=== PATIENT | female | born 1965 | race Caucasian/White ===

== ENCOUNTER → 2020-07-04 10:07 | Outpatient (BNVA) | payer MEDICAID, SELFPAY | PROVIDERS: PCP Student in an Organized Health Care Education/Training Program; Visit Provider Internal Medicine | DX: Z86.711 Personal history of pulmonary embolism (principal); Z51.81 Encounter for therapeutic drug level monitoring; Z79.01 Long term (current) use of anticoagulants | CPT/HCPCS: 85610; 99211 ==

== ENCOUNTER → 2020-07-18 10:07 | Outpatient (BNVA) | payer MEDICAID, SELFPAY | PROVIDERS: PCP Student in an Organized Health Care Education/Training Program; Visit Provider Internal Medicine | DX: Z86.711 Personal history of pulmonary embolism (principal); Z51.81 Encounter for therapeutic drug level monitoring; Z79.01 Long term (current) use of anticoagulants | CPT/HCPCS: 85610; 99211 ==

== ENCOUNTER 2020-07-25 10:09 | Outpatient (REF) | payer MEDICAID, SELFPAY ==
[2020-07-25 13:45] LABS: Alanine Aminotransferase 12 U/L (0-31); Albumin Level 4.2 g/dL (3.5-5.0); Alkaline Phosphatase 88 U/L (39-117); Anion Gap 15 (12-20); Aspartate Amino Transferase 16 U/L (5-31); Bilirubin Direct < 0.2 mg/dL (0.0-0.5); Bilirubin Total < 0.2 mg/dL (0.0-1.0); Blood Urea Nitrogen 19 mg/dL (9-16); Calcium 8.5 mg/dL (8.4-10.2); Carbon Dioxide 24 mmol/L (22-29); Chloride 108 mmol/L (96-108); Cholesterol 174 mg/dL; Estimated Glomerular Filt Rate > 60; Glucose Fasting 71 mg/dL (60-99); HDL Cholesterol 64 mg/dL; LDL Cholesterol Calculated 101 mg/dl; Potassium 4.8 mmol/l (3.3-5.1); Sodium 142 mmol/L (135-145); Total Protein 7.8 g/dL (6.5-8.0); Triglycerides 45 mg/dL
== END 2020-07-25 10:10 | disposition home or self-care (01) ==
LOC: HO.LAB 10:09
PROVIDERS: Visit Provider Student in an Organized Health Care Education/Training Program
DX: E78.5 Hyperlipidemia, unspecified (principal); I10 Essential (primary) hypertension
CPT/HCPCS: 80048; 80061; 80076; 85610

== ENCOUNTER → 2020-08-08 09:50 | Outpatient (BNVA) | payer MEDICAID, SELFPAY | PROVIDERS: PCP Student in an Organized Health Care Education/Training Program; Visit Provider Internal Medicine | DX: Z86.711 Personal history of pulmonary embolism (principal); Z51.81 Encounter for therapeutic drug level monitoring; Z79.01 Long term (current) use of anticoagulants | CPT/HCPCS: 85610; 99211 ==

== ENCOUNTER → 2020-08-12 10:31 | Outpatient (BNVA) | payer MEDICAID, SELFPAY | PROVIDERS: PCP Student in an Organized Health Care Education/Training Program; Visit Provider Internal Medicine | DX: I26.99 Other pulmonary embolism without acute cor pulmonale (principal); Z51.81 Encounter for therapeutic drug level monitoring; Z79.01 Long term (current) use of anticoagulants | CPT/HCPCS: 85610; 99211 ==

== ENCOUNTER → 2020-08-19 10:42 | Outpatient (BNVA) | payer MEDICAID, SELFPAY | PROVIDERS: PCP Student in an Organized Health Care Education/Training Program; Visit Provider Internal Medicine | DX: I26.99 Other pulmonary embolism without acute cor pulmonale (principal); Z51.81 Encounter for therapeutic drug level monitoring; Z79.01 Long term (current) use of anticoagulants | CPT/HCPCS: 85610; 99211 ==

== ENCOUNTER → 2020-08-26 10:12 | Outpatient (BNVA) | payer MEDICAID, SELFPAY | PROVIDERS: PCP Student in an Organized Health Care Education/Training Program; Visit Provider Internal Medicine | DX: I26.99 Other pulmonary embolism without acute cor pulmonale (principal); Z51.81 Encounter for therapeutic drug level monitoring; Z79.01 Long term (current) use of anticoagulants | CPT/HCPCS: 85610; 99211 ==

== ENCOUNTER → 2020-09-10 10:38 | Outpatient (BNVA) | payer MEDICAID, SELFPAY | PROVIDERS: PCP Student in an Organized Health Care Education/Training Program; Visit Provider Internal Medicine | DX: Z86.711 Personal history of pulmonary embolism (principal); Z51.81 Encounter for therapeutic drug level monitoring; Z79.01 Long term (current) use of anticoagulants | CPT/HCPCS: 85610; 99211 ==

== ENCOUNTER → 2020-09-17 11:03 | Outpatient (BNVA) | payer MEDICAID, SELFPAY | PROVIDERS: PCP Student in an Organized Health Care Education/Training Program; Visit Provider Internal Medicine | DX: I26.99 Other pulmonary embolism without acute cor pulmonale (principal); Z51.81 Encounter for therapeutic drug level monitoring; Z79.01 Long term (current) use of anticoagulants | CPT/HCPCS: 85610; 99211 ==

== ENCOUNTER → 2020-09-23 13:18 | Outpatient (BNVA) | payer MEDICAID, SELFPAY | PROVIDERS: PCP Student in an Organized Health Care Education/Training Program; Visit Provider Internal Medicine | DX: Z86.711 Personal history of pulmonary embolism (principal); Z51.81 Encounter for therapeutic drug level monitoring; Z79.01 Long term (current) use of anticoagulants | CPT/HCPCS: 85610; 99211 ==

== ENCOUNTER → 2020-09-27 10:00 | Outpatient (BNVA) | payer MEDICAID, SELFPAY | PROVIDERS: PCP Student in an Organized Health Care Education/Training Program; Visit Provider Internal Medicine | DX: I26.99 Other pulmonary embolism without acute cor pulmonale (principal); Z79.01 Long term (current) use of anticoagulants; Z51.81 Encounter for therapeutic drug level monitoring | CPT/HCPCS: 85610; 99211 ==

== ENCOUNTER → 2020-10-02 10:23 | Outpatient (BNVA) | payer MEDICAID, SELFPAY | PROVIDERS: PCP Student in an Organized Health Care Education/Training Program; Visit Provider Internal Medicine | DX: I26.99 Other pulmonary embolism without acute cor pulmonale (principal); Z79.01 Long term (current) use of anticoagulants; Z51.81 Encounter for therapeutic drug level monitoring | CPT/HCPCS: 85610; 99211 ==

== ENCOUNTER → 2020-10-16 09:49 | Outpatient (BNVA) | payer MEDICAID, SELFPAY | PROVIDERS: PCP Student in an Organized Health Care Education/Training Program; Visit Provider Internal Medicine | DX: I26.99 Other pulmonary embolism without acute cor pulmonale (principal); Z51.81 Encounter for therapeutic drug level monitoring; Z79.01 Long term (current) use of anticoagulants | CPT/HCPCS: 85610; 99211 ==

== ENCOUNTER → 2020-10-25 09:58 | Outpatient (BNVA) | payer MEDICAID, SELFPAY | PROVIDERS: PCP Student in an Organized Health Care Education/Training Program; Visit Provider Internal Medicine | DX: I26.99 Other pulmonary embolism without acute cor pulmonale (principal); Z51.81 Encounter for therapeutic drug level monitoring; Z79.01 Long term (current) use of anticoagulants | CPT/HCPCS: 85610; 99211 ==

== ENCOUNTER → 2020-11-08 09:57 | Outpatient (BNVA) | payer MEDICAID, SELFPAY | PROVIDERS: PCP Student in an Organized Health Care Education/Training Program; Visit Provider Internal Medicine | DX: I26.99 Other pulmonary embolism without acute cor pulmonale (principal); Z51.81 Encounter for therapeutic drug level monitoring; Z79.01 Long term (current) use of anticoagulants | CPT/HCPCS: 85610; 99211 ==

== ENCOUNTER → 2020-11-21 10:11 | Outpatient (BNVA) | payer MEDICAID, SELFPAY | PROVIDERS: PCP Student in an Organized Health Care Education/Training Program; Visit Provider Internal Medicine | DX: I26.99 Other pulmonary embolism without acute cor pulmonale (principal); Z51.81 Encounter for therapeutic drug level monitoring; Z79.01 Long term (current) use of anticoagulants | CPT/HCPCS: 85610; 99211 ==

== ENCOUNTER → 2020-12-06 09:54 | Outpatient (BNVA) | payer MEDICAID, SELFPAY | PROVIDERS: PCP Student in an Organized Health Care Education/Training Program; Visit Provider Internal Medicine | DX: I26.99 Other pulmonary embolism without acute cor pulmonale (principal); Z51.81 Encounter for therapeutic drug level monitoring; Z79.01 Long term (current) use of anticoagulants | CPT/HCPCS: 85610; 99211 ==

== ENCOUNTER → 2020-12-27 10:01 | Outpatient (BNVA) | payer MEDICAID, SELFPAY | PROVIDERS: PCP Student in an Organized Health Care Education/Training Program; Visit Provider Internal Medicine | DX: I26.99 Other pulmonary embolism without acute cor pulmonale (principal); Z51.81 Encounter for therapeutic drug level monitoring; Z79.01 Long term (current) use of anticoagulants | CPT/HCPCS: 85610; 99211 ==

== ENCOUNTER → 2021-01-24 10:11 | Outpatient (BNVA) | payer MEDICAID, SELFPAY | PROVIDERS: PCP Student in an Organized Health Care Education/Training Program; Visit Provider Internal Medicine | DX: I26.99 Other pulmonary embolism without acute cor pulmonale (principal); Z79.01 Long term (current) use of anticoagulants; Z51.81 Encounter for therapeutic drug level monitoring | CPT/HCPCS: 85610; 99211 ==

== ENCOUNTER → 2021-01-30 09:57 | Outpatient (BNVA) | payer MEDICAID, SELFPAY | PROVIDERS: PCP Student in an Organized Health Care Education/Training Program; Visit Provider Internal Medicine | DX: I26.99 Other pulmonary embolism without acute cor pulmonale (principal); Z51.81 Encounter for therapeutic drug level monitoring; Z79.01 Long term (current) use of anticoagulants | CPT/HCPCS: 85610; 99211 ==

== ENCOUNTER 2021-02-03 10:21 | Outpatient (REF) | payer MEDICAID, SELFPAY ==
[2021-02-03 12:34] LABS: Alanine Aminotransferase 13 U/L (0-31); Albumin Level 4.2 g/dL (3.5-5.0); Alkaline Phosphatase 106 U/L (39-117); Anion Gap 13 (12-20); Aspartate Amino Transferase 16 U/L (5-31); Bilirubin Direct < 0.2 mg/dL (0.0-0.5); Bilirubin Total 0.2 mg/dL (0.0-1.0); Blood Urea Nitrogen 17 mg/dL (9-16); Calcium 9.1 mg/dL (8.4-10.2); Carbon Dioxide 26 mmol/L (22-29); Chloride 107 mmol/L (96-108); Cholesterol 162 mg/dL; Estimated Glomerular Filt Rate > 60; Glucose Random 77 mg/dL (60-115); HDL Cholesterol 62 mg/dL; LDL Cholesterol Calculated 89 mg/dl; Potassium 4.7 mmol/L (3.3-5.1); Sodium 141 mmol/L (135-145); Total Protein 7.9 g/dL (6.5-8.0); Triglycerides 57 mg/dL
[2021-02-03 12:58] LABS: Vitamin D 25-OH Total 14.7 ng/mL (>30)
== END 2021-02-03 10:22 | disposition home or self-care (01) ==
LOC: HO.LAB 10:21
PROVIDERS: PCP Student in an Organized Health Care Education/Training Program; Visit Provider Student in an Organized Health Care Education/Training Program
DX: E78.5 Hyperlipidemia, unspecified (principal); I10 Essential (primary) hypertension
CPT/HCPCS: 36415; 80048; 80061; 80076; 82306

== ENCOUNTER → 2021-02-27 09:58 | Outpatient (BNVA) | payer MEDICAID, SELFPAY | PROVIDERS: PCP Student in an Organized Health Care Education/Training Program; Visit Provider Internal Medicine | DX: I26.99 Other pulmonary embolism without acute cor pulmonale (principal); Z51.81 Encounter for therapeutic drug level monitoring; Z79.01 Long term (current) use of anticoagulants | CPT/HCPCS: 85610; 99211 ==

== ENCOUNTER → 2021-03-28 10:28 | Outpatient (BNVA) | payer MEDICAID, SELFPAY | PROVIDERS: PCP Student in an Organized Health Care Education/Training Program; Visit Provider Internal Medicine | DX: I26.99 Other pulmonary embolism without acute cor pulmonale (principal); Z51.81 Encounter for therapeutic drug level monitoring; Z79.01 Long term (current) use of anticoagulants | CPT/HCPCS: 85610; 99211 ==

== ENCOUNTER → 2021-04-04 09:52 | Outpatient (BNVA) | payer MEDICAID, SELFPAY | PROVIDERS: PCP Student in an Organized Health Care Education/Training Program; Visit Provider Internal Medicine | DX: I26.99 Other pulmonary embolism without acute cor pulmonale (principal); Z51.81 Encounter for therapeutic drug level monitoring; Z79.01 Long term (current) use of anticoagulants | CPT/HCPCS: 85610; 99211 ==

== ENCOUNTER → 2021-04-17 10:13 | Outpatient (BNVA) | payer MEDICAID, SELFPAY | PROVIDERS: PCP Student in an Organized Health Care Education/Training Program; Visit Provider Internal Medicine | DX: I26.99 Other pulmonary embolism without acute cor pulmonale (principal); Z51.81 Encounter for therapeutic drug level monitoring; Z79.01 Long term (current) use of anticoagulants | CPT/HCPCS: 85610; 99211 ==

== ENCOUNTER → 2021-05-09 10:02 | Outpatient (BNVA) | payer MEDICAID, SELFPAY | PROVIDERS: PCP Student in an Organized Health Care Education/Training Program; Visit Provider Internal Medicine | DX: I26.99 Other pulmonary embolism without acute cor pulmonale (principal); Z51.81 Encounter for therapeutic drug level monitoring; Z79.01 Long term (current) use of anticoagulants | CPT/HCPCS: 85610; 99211 ==

== ENCOUNTER → 2021-05-30 10:00 | Outpatient (BNVA) | payer MEDICAID, SELFPAY | PROVIDERS: PCP Student in an Organized Health Care Education/Training Program; Visit Provider Internal Medicine | DX: I26.99 Other pulmonary embolism without acute cor pulmonale (principal); Z51.81 Encounter for therapeutic drug level monitoring; Z79.01 Long term (current) use of anticoagulants | CPT/HCPCS: 85610; 99211 ==

== ENCOUNTER → 2021-06-13 10:13 | Outpatient (BNVA) | payer MEDICAID, SELFPAY | PROVIDERS: PCP Student in an Organized Health Care Education/Training Program; Visit Provider Internal Medicine | DX: I26.99 Other pulmonary embolism without acute cor pulmonale (principal); Z51.81 Encounter for therapeutic drug level monitoring; Z79.01 Long term (current) use of anticoagulants | CPT/HCPCS: 85610; 99211 ==

== ENCOUNTER → 2021-07-11 10:23 | Outpatient (BNVA) | payer MEDICAID, SELFPAY | PROVIDERS: PCP Student in an Organized Health Care Education/Training Program; Visit Provider Internal Medicine | DX: I26.99 Other pulmonary embolism without acute cor pulmonale (principal); Z51.81 Encounter for therapeutic drug level monitoring; Z79.01 Long term (current) use of anticoagulants | CPT/HCPCS: 85610; 99211 ==

== ENCOUNTER → 2021-08-08 10:47 | Outpatient (BNVA) | payer MEDICAID, SELFPAY | PROVIDERS: PCP Internal Medicine; Visit Provider Internal Medicine | DX: I26.99 Other pulmonary embolism without acute cor pulmonale (principal); Z51.81 Encounter for therapeutic drug level monitoring; Z79.01 Long term (current) use of anticoagulants | CPT/HCPCS: 85610; 99211 ==

== ENCOUNTER → 2021-09-04 09:55 | Outpatient (BNVA) | payer MEDICAID, SELFPAY | PROVIDERS: PCP Internal Medicine; Visit Provider Internal Medicine | DX: I26.99 Other pulmonary embolism without acute cor pulmonale (principal); Z51.81 Encounter for therapeutic drug level monitoring; Z79.01 Long term (current) use of anticoagulants | CPT/HCPCS: 85610; 99211 ==

== ENCOUNTER → 2021-10-02 09:52 | Outpatient (BNVA) | payer MEDICAID, SELFPAY | PROVIDERS: PCP Internal Medicine; Visit Provider Internal Medicine | DX: I26.99 Other pulmonary embolism without acute cor pulmonale (principal); Z51.81 Encounter for therapeutic drug level monitoring; Z79.01 Long term (current) use of anticoagulants | CPT/HCPCS: 85610; 99211 ==

== ENCOUNTER → 2021-10-30 09:55 | Outpatient (BNVA) | payer MEDICAID, SELFPAY | PROVIDERS: PCP Internal Medicine; Visit Provider Internal Medicine | DX: I26.99 Other pulmonary embolism without acute cor pulmonale (principal); Z51.81 Encounter for therapeutic drug level monitoring; Z79.01 Long term (current) use of anticoagulants | CPT/HCPCS: 85610; 99211 ==

== ENCOUNTER → 2021-11-12 10:29 | Outpatient (BNVA) | payer MEDICAID, SELFPAY | PROVIDERS: PCP Internal Medicine; Visit Provider Internal Medicine | DX: I26.99 Other pulmonary embolism without acute cor pulmonale (principal); Z51.81 Encounter for therapeutic drug level monitoring; Z79.01 Long term (current) use of anticoagulants | CPT/HCPCS: 85610; 99211 ==

== ENCOUNTER → 2021-12-11 10:01 | Outpatient (BNVA) | payer MEDICAID, SELFPAY | PROVIDERS: PCP Internal Medicine; Visit Provider Internal Medicine | DX: I26.99 Other pulmonary embolism without acute cor pulmonale (principal); Z51.81 Encounter for therapeutic drug level monitoring; Z79.01 Long term (current) use of anticoagulants | CPT/HCPCS: 85610; 99211 ==

== ENCOUNTER → 2021-12-25 10:22 | Outpatient (BNVA) | payer MEDICAID, SELFPAY | PROVIDERS: PCP Student in an Organized Health Care Education/Training Program; Visit Provider Internal Medicine | DX: I26.99 Other pulmonary embolism without acute cor pulmonale (principal); Z51.81 Encounter for therapeutic drug level monitoring; Z79.01 Long term (current) use of anticoagulants | CPT/HCPCS: 85610; 99211 ==

== ENCOUNTER → 2022-01-22 10:10 | Outpatient (BNVA) | payer MEDICAID, SELFPAY | PROVIDERS: PCP Student in an Organized Health Care Education/Training Program; Visit Provider Internal Medicine | DX: I26.99 Other pulmonary embolism without acute cor pulmonale (principal); Z79.01 Long term (current) use of anticoagulants; Z51.81 Encounter for therapeutic drug level monitoring | CPT/HCPCS: 85610; 99211 ==

== ENCOUNTER 2022-02-05 10:16 | Outpatient (REF) | payer MEDICAID, SELFPAY ==
[2022-02-05 11:40] LABS: Hematocrit 31.4 % (37.0-47.0); Hemoglobin 9.5 g/dl (12.0-16.0); Mean Corpuscular HGB Conc 30.3 g/dl (31.0-35.0); Mean Corpuscular Hemoglobin 20.4 pg (27.0-33.0); Mean Corpuscular Volume 67.4 fL (80.0-98.0); Mean Platelet Volume 8.8 fL (9.4-12.3); Platelet Count 638 X10*3/uL (160-400); Red Blood Count 4.66 X10*6/uL (4.20-5.50); White Blood Count 12.7 X10*3/uL (4.8-10.8)
[2022-02-05 12:09] LABS: Alanine Aminotransferase 14 U/L (0-31); Alkaline Phosphatase 87 U/L (39-117); Anion Gap 12 (12-20); Aspartate Amino Transferase 16 U/L (5-31); Bilirubin Direct < 0.2 mg/dL (0.0-0.5); Bilirubin Total 0.3 mg/dL (0.0-1.0); Blood Urea Nitrogen 18 mg/dL (9-16); Calcium 9.5 mg/dL (8.4-10.2); Carbon Dioxide 24 mmol/L (22-29); Chloride 109 mmol/L (96-108); Cholesterol 203 mg/dL; Estimated Glomerular Filt Rate > 60; Glucose Random 75 mg/dL (60-115); HDL Cholesterol 62 mg/dL; LDL Cholesterol Calculated 128 mg/dl; Potassium 4.5 mmol/L (3.3-5.1); Sodium 140 mmol/L (135-145); Total Protein 7.9 g/dL (6.5-8.0); Triglycerides 67 mg/dL
[2022-02-05 12:39] LABS: Vitamin D 25-OH Total 24.2 ng/mL (>30)
== END 2022-02-05 10:17 | disposition home or self-care (01) ==
LOC: HO.LAB 10:16
PROVIDERS: Absent Provider Student in an Organized Health Care Education/Training Program; PCP Student in an Organized Health Care Education/Training Program; Visit Provider Internal Medicine
DX: E78.5 Hyperlipidemia, unspecified (principal); I10 Essential (primary) hypertension; R26.9 Unspecified abnormalities of gait and mobility; I26.99 Other pulmonary embolism without acute cor pulmonale; Z51.81 Encounter for therapeutic drug level monitoring; Z79.01 Long term (current) use of anticoagulants
CPT/HCPCS: 36415; 80048; 80061; 80076; 82306; 85027; 85610; 99211

== ENCOUNTER → 2022-02-12 10:29 | Outpatient (BNVA) | payer MEDICAID, SELFPAY | PROVIDERS: PCP Student in an Organized Health Care Education/Training Program; Visit Provider Internal Medicine | DX: I26.99 Other pulmonary embolism without acute cor pulmonale (principal); Z79.01 Long term (current) use of anticoagulants; Z51.81 Encounter for therapeutic drug level monitoring | CPT/HCPCS: 85610; 99211 ==

== ENCOUNTER → 2022-03-05 09:54 | Outpatient (BNVA) | payer MEDICAID, SELFPAY | PROVIDERS: PCP Student in an Organized Health Care Education/Training Program; Visit Provider Internal Medicine | DX: I26.99 Other pulmonary embolism without acute cor pulmonale (principal); Z79.01 Long term (current) use of anticoagulants; Z51.81 Encounter for therapeutic drug level monitoring | CPT/HCPCS: 85610; 99211 ==

== ENCOUNTER 2022-03-06 10:21 | Outpatient (REF) | payer MEDICAID, SELFPAY ==
--- NOTE | ~2022-03-06 | MM_ITS ---
EXAMINATION: MM SCREENING DIGITAL BREAST TOMOSYNTHESIS, BILATERAL CLINICAL INFORMATION: Screening. Asymptomatic. The lifetime risk of breast cancer based on the Tyrer-Cuzick Model is 4%. COMPARISON: Outside mammography 06/07/2013, 02/01/2012, 01/28/2011 ([facility]) TECHNIQUE: Digital breast tomosynthesis is performed in both the craniocaudal and mediolateral oblique views along with computer-aided detection (CAD). Synthesized 2D images are generated from the tomosynthesis. FINDINGS: There are scattered areas of fibroglandular density (ACR BI-RADS breast composition Category b). Parenchymal pattern is similar to prior exams. There is no mass, developing density, or interval architectural abnormality. Again, there are benign tightly grouped dermal calcifications posterior lower right breast and tightly grouped benign calcifications central upper left breast. Calcifications were present in 2012. The axilla and skin contours are unremarkable. MM/MM tomosynthesis screening BI IMPRESSION: No mammographic evidence of malignancy. ASSESSMENT: BI-RADS 2: Benign RECOMMENDATION: Routine annual mammography screening. This patient's information was entered into a reminder system with a target due date for their next mammogram.
== END 2022-03-06 10:22 | disposition home or self-care (01) ==
LOC: HO.MAMMO 10:21
PROVIDERS: PCP Student in an Organized Health Care Education/Training Program; Visit Provider Student in an Organized Health Care Education/Training Program
DX: Z12.31 Encounter for screening mammogram for malignant neoplasm of breast (principal)
CPT/HCPCS: 77063; 77067

== ENCOUNTER → 2022-03-19 10:03 | Outpatient (BNVA) | payer MEDICAID, SELFPAY | PROVIDERS: PCP Student in an Organized Health Care Education/Training Program; Visit Provider Internal Medicine | DX: I26.99 Other pulmonary embolism without acute cor pulmonale (principal); Z51.81 Encounter for therapeutic drug level monitoring; Z79.01 Long term (current) use of anticoagulants | CPT/HCPCS: 85610; 99211 ==

== ENCOUNTER → 2022-04-02 09:57 | Outpatient (BNVA) | payer MEDICAID, SELFPAY | PROVIDERS: PCP Student in an Organized Health Care Education/Training Program; Visit Provider Internal Medicine | DX: I26.99 Other pulmonary embolism without acute cor pulmonale (principal); Z79.01 Long term (current) use of anticoagulants; Z51.81 Encounter for therapeutic drug level monitoring | CPT/HCPCS: 85610; 99211 ==

== ENCOUNTER → 2022-04-09 10:27 | Outpatient (BNVA) | payer MEDICAID, SELFPAY | PROVIDERS: PCP Student in an Organized Health Care Education/Training Program; Visit Provider Internal Medicine | DX: I26.99 Other pulmonary embolism without acute cor pulmonale (principal); Z79.01 Long term (current) use of anticoagulants; Z51.81 Encounter for therapeutic drug level monitoring | CPT/HCPCS: 85610; 99211 ==

== ENCOUNTER → 2022-04-23 09:54 | Outpatient (BNVA) | payer MEDICAID, SELFPAY | PROVIDERS: PCP Student in an Organized Health Care Education/Training Program; Visit Provider Internal Medicine | DX: I26.99 Other pulmonary embolism without acute cor pulmonale (principal); Z79.01 Long term (current) use of anticoagulants; Z51.81 Encounter for therapeutic drug level monitoring | CPT/HCPCS: 85610; 99211 ==

== ENCOUNTER → 2022-05-07 09:55 | Outpatient (BNVA) | payer MEDICAID, SELFPAY | PROVIDERS: PCP Student in an Organized Health Care Education/Training Program; Visit Provider Internal Medicine | DX: I26.99 Other pulmonary embolism without acute cor pulmonale (principal); Z79.01 Long term (current) use of anticoagulants; Z51.81 Encounter for therapeutic drug level monitoring | CPT/HCPCS: 85610; 99211 ==

== ENCOUNTER → 2022-05-22 09:52 | Outpatient (BNVA) | payer MEDICAID, SELFPAY | PROVIDERS: PCP Student in an Organized Health Care Education/Training Program; Visit Provider Internal Medicine | DX: I26.99 Other pulmonary embolism without acute cor pulmonale (principal); Z79.01 Long term (current) use of anticoagulants; Z51.81 Encounter for therapeutic drug level monitoring | CPT/HCPCS: 85610; 99211 ==

== ENCOUNTER → 2022-06-12 09:52 | Outpatient (BNVA) | payer MEDICAID, SELFPAY | PROVIDERS: PCP Student in an Organized Health Care Education/Training Program; Visit Provider Internal Medicine | DX: I26.99 Other pulmonary embolism without acute cor pulmonale (principal); Z51.81 Encounter for therapeutic drug level monitoring; Z79.01 Long term (current) use of anticoagulants | CPT/HCPCS: 85610; 99211 ==

== ENCOUNTER → 2022-07-10 10:17 | Outpatient (BNVA) | payer MEDICAID, SELFPAY | PROVIDERS: PCP Student in an Organized Health Care Education/Training Program; Visit Provider Internal Medicine | DX: I26.99 Other pulmonary embolism without acute cor pulmonale (principal); Z79.01 Long term (current) use of anticoagulants; Z51.81 Encounter for therapeutic drug level monitoring | CPT/HCPCS: 85610; 99211 ==

== ENCOUNTER 2022-07-13 12:12 | Emergency (ER) | payer MEDICAID, SELFPAY ==
--- NOTE | ~2022-07-13 | CT_ITS ---
EXAMINATION: CT HEAD WITHOUT CONTRAST CLINICAL INFORMATION: Elevated INR. Headache. COMPARISON: None. TECHNIQUE: Contiguous axial imaging was performed from the skull base to vertex without intravenous administration of contrast. This CT examination was performed using dose optimization techniques as appropriate, variously including the following: *Automated exposure control *Adjustment of mA and/or kV according to patient size (this includes techniques or standardized protocols for targeted exams where dose is matched to indication/reason for exam; i.e. extremities or head) *Use of iterative reconstruction technique DLP: 583 mGy-cm FINDINGS: There is no evidence of acute intracranial hemorrhage or territorial infarction. No abnormal mass effect or midline shift is seen. No extra-axial fluid collections are identified. There is encephalomalacia in the right jfqkxhv-uliykrme-ukykzzrr lobes along the mid convexity and at the level of the sylvian fissure. 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 There is ex vacuo dilatation of the left lateral ventricle due to parenchymal volume loss. No hydrocephalus evident. The osseous structures and soft tissues are normal. There is a mild amount of fluid in the dependent left mastoid air cells. There is sclerotic thickening of the griffin of the right maxillary antrum with retraction of the posterolateral wall. Additionally, the uncinate process and medial wall of the right maxillary sinus are retracted to the inferomedial orbital wall. There is subsequent proteinaceous mucoid opacification of the right maxillary sinus. In addition, the right middle turbinate is abnormally lateralized to the medial right orbital wall compressing and distorting the right ethmoid bulla. Mucosal thickening opacifies the right anterior ethmoid air cells, the right frontal recess, and the right frontal sinus. There are chronic fatty atrophic changes in the left parotid gland. The right parotid gland appears normal. The imaged nasopharyngeal soft tissues are unremarkable. CT/CT head/brain wo IV con IMPRESSION: No acute intracranial pathology. 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 Chronic proteinaceous mucoid opacification in the sinus cavity. Additional atelectatic changes with abnormal lateralization of the right middle turbinate obstructing the right frontoethmoid drainage pathway. Recommend nonemergent follow-up ENT evaluation.
[2022-07-13 13:10] VITALS: BP 165/74; PULSE 52; RESP 18; TEMP 36.1; O2SAT 98; BMI 30.1
[2022-07-13 17:11] VITALS: BP 167/74; PULSE 71; RESP 18; O2SAT 98
[2022-07-13 17:22] VITALS: RESP 18
[2022-07-13] MEDS: Metoclopramide HCl 10 MG TABLET PO (17:22)
[2022-07-13] MEDS: Morphine Sulfate 4 MG/ML CARTRIDGE IM (17:22)
[2022-07-13] MEDS: diphenhydrAMINE HCL 25 MG TABLET PO (17:23)
--- NOTE | 2022-07-13 17:46 | ED.HA ---
HPI - Headache General Chief Complaint: Headache Stated Complaint: intractable headache Time Seen by Provider: 07/13/22 17:01 Source: patient Mode of arrival: ambulatory Limitations: no limitations History of Present Illness HPI Narrative: Patient comes to the emergency room complaining of intermittent frontal headache. At this time, patient states that the headache is very mild. However, patient seems to be concerned that she has mild ecchymosis in her lower right eyelid. Patient states that she did not fall, no trauma, it is painless. Patient states that her vision is within normal limits. Patient denies chest pain or shortness of breath Related Data Home Medications Medication Instructions Recorded Confirmed acetaminophen 650 mg 650 mg PO Q8H PRN 05/30/21 07/10/22 tablet,extended release (Tylenol 8 Hour) diphenhydramine HCl 25 mg capsule 25 mg PO BEDTIME PRN sleep 05/30/21 07/10/22 (Benadryl) famotidine 20 mg tablet 20 mg PO DAILY 05/30/21 07/10/22 gemfibrozil 600 mg tablet 600 mg PO BID 05/30/21 07/10/22 ktvojqs-zkshzsvprhrgi-uvzolcax 250 0 tab PO 08/08/21 07/10/22 mg-250 mg-65 mg tablet (Pain Reliever Plus) ketotifen fumarate 0.025 % (0.035 1 drp ophthalmic (eye) BID 10/30/21 07/10/22 %) eye drops methocarbamol 500 mg tablet 500 mg PO QID 01/22/22 07/10/22 ferrous sulfate 325 mg (65 mg 325 mg PO DAILY 04/02/22 07/10/22 iron) tablet triamcinolone acetonide 0.5 % topical BID 05/22/22 07/10/22 topical ointment Previous Rx's Medication Instructions Recorded warfarin 4 mg tablet 4 mg PO DAILY #90 tabs 07/04/20 Allergies Allergy/AdvReac Type Severity Reaction Status Date / Time No Known Allergies Allergy Mild N/A Verified 07/10/22 10:18 Review of Systems Review of Systems: Constitutional : No Weight loss, No Fever, No Chills, No Night Sweats, No Fatigue, No Malaise ENT/Mouth : No Hearing loss, No Ear Pain, No Nasal Congestion, No Sinus Pain, No Hoarseness, No sore throat, No Rhinorrhea, No Swallowing Difficulty Eyes: No Eye Pain, No Swelling, No Redness, No Foreign Body, No Discharge, No Vision Changes, complaining of ecchymosis in the right lower eyelid Cardiovascular : No Chest Pain, No SOB, No Dyspnea on Exertion, No Orthopnea, No Edema, No Palpitations Respiratory : No Cough, No Sputum, No Wheezing, No Smoke Exposure, No Dyspnea Gastrointestinal : No Nausea, No Vomiting, No Diarrhea, No Constipation, No abdominal Pain, No Hematochezia, No Melena Genitourinary : no irregular bleeding, No Dysuria, No Urinary Frequency, No Hematuria, No Urinary Incontinence, No Urgency, No Flank Pain, No Urinary Flow Changes, No Hesitancy Musculoskeletal : No joint pain, No Myalgias, No Joint Swelling Skin : No Skin Lesions, No rash Neuro : No Weakness, No Numbness, No Paresthesias, No Loss of Consciousness, No Dizziness, complaining of intermittent Headache Psych : No Anxiety/Panic, No Depression, No SI/HI/AH/VH, No Social Issues, Heme/Lymph: No Bruising, No Bleeding,No Lymphadenopathy Endocrine : No Polyuria, No Polydipsia, No Temperature Intolerance REPLACED BY [facility] Past Medical History Medical History High cholesterol Hypertension Stroke Social History Social History Advance Directives: No Advance Directives Information Provided: No Patient : No Physical Exam Vital Signs: Vital Signs: Last Vital Signs Temp 97.0 F 07/13/22 13:10 Pulse 71 07/13/22 17:11 Resp 18 07/13/22 17:22 BP 167/74 H 07/13/22 17:11 Pulse Ox 98 07/13/22 17:11 O2 Del Method 07/13/22 17:11 BMI result Body Mass Index 30.1 Const: Other: Appearance: Alert. Oriented X3. No acute distress. Eyes: Pupils equal, round and reactive to light. Patient has ecchymosis on the lower right eyelid ENT: Pharynx normal. Neck: Normal inspection. Neck supple. No lymph nodes noted. No crepitus CVS: Normal heart rate and rhythm. Pulses normal. Normal S1 and S2 Respiratory: No respiratory distress. Breath sounds normal. No Wheezing. No rales Abdomen: Soft and nontender. No rigidity. No distention. Skin: Skin warm and dry. Normal skin color. Normal skin turgor. Extremities: No lower extremity edema. No Lacerations. No Rash Neuro: Oriented X 3. No motor deficit. No sensory deficit. Moving all extremities. No slurred speech. CN 2 through 12 grossly intact Psych: calm, cooperative, normal affect Course Course Course Narrative: I discussed with the patient her INR is 1.8. Patient has been taking 2 mg [place] previously her INR was 4. Tomorrow, patient will resume her normal dose at 4 mg MDM - Headache Lab Data Result diagrams: 07/13/22 17:51 07/13/22 17:51 Labs: Lab Results 07/13/22 07/13/22 07/13/22 Range/Units 17:51 17:51 17:51 WBC 8.0 (4.8-10.8) X10*3/uL RBC 4.91 (4.20-5.50) X10*6/uL Hgb 12.7 D (12.0-16.0) g/dl Hct 38.8 D (37.0-47.0) % MCV 79.0 L (80.0-98.0) fL MCH 25.9 L (27.0-33.0) pg MCHC 32.7 (31.0-35.0) g/dl RDW 15.9 (11.0-16.0) % Plt Count 538 H (160-400) X10*3/uL MPV 8.9 L (9.4-12.3) fL Immature Gran % (Auto) 0.4 (0.0-0.4) % Neut % (Auto) 54.8 (45-73) % Lymph % (Auto) 34.0 (20-40) % [place] % (Auto) 8.3 (2-11) % Eos % (Auto) 1.9 (0-4) % Baso % (Auto) 0.6 (0-2) % Lymph # (Auto) 2.7 (1.2-4.9) X10*3/uL [place] # (Auto) 0.7 (0.1-1.2) X10*3/uL Eos # (Auto) 0.2 (0.0-0.4) X10*3/uL Baso # (Auto) 0.1 (0.0-0.2) X10*3/uL Abs Immat Gran (auto) 0.03 (0.00-0.03) X10*3/uL Absolute Neuts (auto) 4.4 (2.0-8.3) x10*3/uL Absolute Nucleated RBC 0.000 (0.0-0.012) X10*3/uL Nucleated RBC % (auto) 0.0 (0.0-0.2) /100WBC PT 21.7 H (10.0-13.1) SEC INR 1.8 H (0.9-1.1) Sodium 142 (135-145) mmol/L Potassium 4.1 (3.3-5.1) mmol/L Chloride 107 (96-108) mmol/L Carbon Dioxide 23 (22-29) mmol/L Anion Gap 16 (12-20) BUN 12 (9-16) mg/dL Creatinine 0.81 (0.5-1.4) mg/dL Estim Creat Clear Calc 63.2 Estimated GFR > 60 Random Glucose 102 (60-115) mg/dL Calcium 9.2 (8.4-10.2) mg/dL Discharge Plan Discharge Clinical Impression: Headache, Abnormal INR Patient Disposition: Home, Self-Care Instructions: Acute Headache (ED) Additional Instructions: Please follow-up with your primary care physician tomorrow. If you have any worsening or new symptoms, please return to the emergency room or call 911 Prescriptions: No Action warfarin 4 mg tablet 4 mg PO DAILY Qty: 90 0RF Protocol: Dose Management Condition: Wednesday (Week One) Dose/Route: 4 mg Instruction: 1 x 4 mg tablet Condition: Wednesday Dose/Route: 4 mg Instruction: 1 x 4 mg tablet Condition: Wednesday Dose/Route: 2 mg Instruction: 0.5 x 4 mg tablets Condition: Wednesday Dose/Route: 4 mg Instruction: 1 x 4 mg tablet Condition: Dose/Route: 4 mg Instruction: 1 x 4 mg tablet Condition: Wednesday Dose/Route: 4 mg Instruction: 1 x 4 mg tablet Condition: Wednesday Dose/Route: 0 mg Instruction: 0 tablets Condition: Wednesday (Week Two) Dose/Route: 2 mg Instruction: 0.5 x 4 mg tablets Condition: Wednesday Dose/Route: 4 mg Instruction: 1 x 4 mg tablet Condition: Wednesday Dose/Route: 2 mg Instruction: 0.5 x 4 mg tablets Condition: Wednesday Dose/Route: 4 mg Instruction: 1 x 4 mg tablet Condition: Dose/Route: 4 mg Instruction: 1 x 4 mg tablet Condition: Wednesday Dose/Route: 4 mg Instruction: 1 x 4 mg tablet Condition: Wednesday Dose/Route: 4 mg Instruction: 1 x 4 mg tablet Protocol Text: Adjustment Start Date: Wednesday07/10/22 INR Value: 4.8 INR Date: 07/10/22 Recheck Date: 07/15/22 Additional Instructions: INR is above range, you already took warfarin today DO NOT take warfarin on Wednesday and decrease dose on Wednesday to 2mg then resume usual dosing greens today and tomorrow then balance greens and reds in diet Rx Instructions: 4MG X 5DAYS/ 2MG X2DAYS gemfibrozil 600 mg tablet 600 mg PO BID acetaminophen [Tylenol 8 Hour] 650 mg tablet extended release 650 mg PO Q8H PRN famotidine 20 mg tablet 20 mg PO DAILY diphenhydramine HCl [Benadryl] 25 mg capsule 25 mg PO BEDTIME PRN (Reason: sleep) Pain Reliever Plus 250-250-65 mg tablet 0 tab PO ketotifen fumarate 0.025 % (0.035 %) drops 1 drp ophthalmic (eye) BID methocarbamol 500 mg tablet 500 mg PO QID ferrous sulfate 325 mg (65 mg iron) tablet 325 mg PO DAILY triamcinolone acetonide 0.5 % ointment topical BID
[2022-07-13 17:56] LABS: MANUAL DIFF FLAG NO
[2022-07-13 18:02] LABS: INTERNATIONAL NORM RATIO 1.8 (0.9-1.1); Prothrombin Time 21.7 SEC (10.0-13.1)
[2022-07-13 18:11] LABS: Basophils Absolute Auto 0.1 X10*3/uL (0.0-0.2); Basophils Percent Auto 0.6 % (0-2); Eosinophils Absolute Auto 0.2 X10*3/uL (0.0-0.4); Eosinophils Percent Auto 1.9 % (0-4); Hematocrit 38.8 % (37.0-47.0); Hemoglobin 12.7 g/dl (12.0-16.0); Imm Gran Abs Auto 0.03 X10*3/uL (0.00-0.03); Imm Gran Pct Auto 0.4 % (0.0-0.4); Lymphocytes Absolute Auto 2.7 X10*3/uL (1.2-4.9); Mean Corpuscular HGB Conc 32.7 g/dl (31.0-35.0); Mean Corpuscular Hemoglobin 25.9 pg (27.0-33.0); Mean Platelet Volume 8.9 fL (9.4-12.3); Monocytes Absolute Auto 0.7 X10*3/uL (0.1-1.2); Monocytes Percent Auto 8.3 % (2-11); Neutrophils Absolute Auto 4.4 x10*3/uL (2.0-8.3); Neutrophils Percent Auto 54.8 % (45-73); Platelet Count 538 X10*3/uL (160-400); Red Blood Count 4.91 X10*6/uL (4.20-5.50); Red Cell Distribution Width 15.9 % (11.0-16.0)
[2022-07-13 18:14] LABS: Anion Gap 16 (12-20); Blood Urea Nitrogen 12 mg/dL (9-16); Calcium 9.2 mg/dL (8.4-10.2); Carbon Dioxide 23 mmol/L (22-29); Chloride 107 mmol/L (96-108); Creatinine Clr Calc Pharmacy 63.2; Estimated Glomerular Filt Rate > 60; Glucose Random 102 mg/dL (60-115); Potassium 4.1 mmol/L (3.3-5.1); Sodium 142 mmol/L (135-145)
== END 2022-07-13 19:50 | disposition home or self-care (01) ==
PROVIDERS: Emergency Provider Emergency Medicine; PCP Student in an Organized Health Care Education/Training Program
DX: R51.9 Headache, unspecified (principal); R79.1 Abnormal coagulation profile; E78.00 Pure hypercholesterolemia, unspecified; I10 Essential (primary) hypertension; Z86.73 Personal history of transient ischemic attack (TIA), and cerebral infarction without residual deficits; Z79.01 Long term (current) use of anticoagulants; Z79.899 Other long term (current) drug therapy
CPT/HCPCS: 36415; 70450; 80048; 85025; 85610; 96372; 99284; J2270; Q0163

== ENCOUNTER → 2022-07-14 10:29 | Outpatient (BNVA) | payer MEDICAID, SELFPAY | PROVIDERS: PCP Student in an Organized Health Care Education/Training Program; Visit Provider Internal Medicine | DX: I26.99 Other pulmonary embolism without acute cor pulmonale (principal); Z79.01 Long term (current) use of anticoagulants; Z51.81 Encounter for therapeutic drug level monitoring | CPT/HCPCS: 85610; 99211 ==

== ENCOUNTER → 2022-07-20 10:00 | Outpatient (BNVA) | payer MEDICAID, SELFPAY | PROVIDERS: PCP Student in an Organized Health Care Education/Training Program; Visit Provider Internal Medicine | DX: I26.99 Other pulmonary embolism without acute cor pulmonale (principal); Z79.01 Long term (current) use of anticoagulants; Z51.81 Encounter for therapeutic drug level monitoring | CPT/HCPCS: 85610; 99211 ==

== ENCOUNTER → 2022-07-27 09:59 | Outpatient (BNVA) | payer MEDICAID, SELFPAY | PROVIDERS: PCP Student in an Organized Health Care Education/Training Program; Visit Provider Internal Medicine | DX: I26.99 Other pulmonary embolism without acute cor pulmonale (principal); Z79.01 Long term (current) use of anticoagulants; Z51.81 Encounter for therapeutic drug level monitoring | CPT/HCPCS: 85610; 99211 ==

== ENCOUNTER → 2022-08-10 10:12 | Outpatient (BNVA) | payer MEDICAID, SELFPAY | PROVIDERS: PCP Student in an Organized Health Care Education/Training Program; Visit Provider Internal Medicine | DX: I26.99 Other pulmonary embolism without acute cor pulmonale (principal); Z79.01 Long term (current) use of anticoagulants; Z51.81 Encounter for therapeutic drug level monitoring | CPT/HCPCS: 85610; 99211 ==

== ENCOUNTER → 2022-08-27 10:01 | Outpatient (BNVA) | payer MEDICAID, SELFPAY | PROVIDERS: PCP Student in an Organized Health Care Education/Training Program; Visit Provider Internal Medicine | DX: I26.99 Other pulmonary embolism without acute cor pulmonale (principal); Z79.01 Long term (current) use of anticoagulants; Z51.81 Encounter for therapeutic drug level monitoring | CPT/HCPCS: 85610; 99211 ==

== ENCOUNTER → 2022-09-10 10:01 | Outpatient (BNVA) | payer MEDICAID, SELFPAY | PROVIDERS: PCP Student in an Organized Health Care Education/Training Program; Visit Provider Internal Medicine | DX: I26.99 Other pulmonary embolism without acute cor pulmonale (principal); Z79.01 Long term (current) use of anticoagulants; Z51.81 Encounter for therapeutic drug level monitoring | CPT/HCPCS: 85610; 99211 ==

== ENCOUNTER → 2022-09-24 10:06 | Outpatient (BNVA) | payer MEDICAID, SELFPAY | PROVIDERS: PCP Student in an Organized Health Care Education/Training Program; Visit Provider Internal Medicine | DX: I26.99 Other pulmonary embolism without acute cor pulmonale (principal); Z79.01 Long term (current) use of anticoagulants; Z51.81 Encounter for therapeutic drug level monitoring | CPT/HCPCS: 85610; 99211 ==

== ENCOUNTER → 2022-10-08 10:23 | Outpatient (BNVA) | payer MEDICAID, SELFPAY | PROVIDERS: PCP Student in an Organized Health Care Education/Training Program; Visit Provider Internal Medicine | DX: I26.99 Other pulmonary embolism without acute cor pulmonale (principal); Z51.81 Encounter for therapeutic drug level monitoring; Z79.01 Long term (current) use of anticoagulants | CPT/HCPCS: 85610; 99211 ==

== ENCOUNTER → 2022-10-22 10:13 | Outpatient (BNVA) | payer MEDICAID, SELFPAY | PROVIDERS: PCP Student in an Organized Health Care Education/Training Program; Visit Provider Internal Medicine | DX: I26.99 Other pulmonary embolism without acute cor pulmonale (principal); Z79.01 Long term (current) use of anticoagulants; Z51.81 Encounter for therapeutic drug level monitoring | CPT/HCPCS: 85610; 99211 ==

== ENCOUNTER → 2022-10-29 09:54 | Outpatient (BNVA) | payer MEDICAID, SELFPAY | PROVIDERS: PCP Student in an Organized Health Care Education/Training Program; Visit Provider Internal Medicine | DX: I26.99 Other pulmonary embolism without acute cor pulmonale (principal); Z79.01 Long term (current) use of anticoagulants; Z51.81 Encounter for therapeutic drug level monitoring | CPT/HCPCS: 85610; 99211 ==

== ENCOUNTER → 2022-11-12 10:03 | Outpatient (BNVA) | payer MEDICAID, SELFPAY | PROVIDERS: PCP Student in an Organized Health Care Education/Training Program; Visit Provider Internal Medicine | DX: I26.99 Other pulmonary embolism without acute cor pulmonale (principal); Z79.01 Long term (current) use of anticoagulants; Z51.81 Encounter for therapeutic drug level monitoring | CPT/HCPCS: 85610; 99211 ==

== ENCOUNTER → 2022-11-26 10:11 | Outpatient (BNVA) | payer MEDICAID, SELFPAY | PROVIDERS: PCP Student in an Organized Health Care Education/Training Program; Visit Provider Internal Medicine | DX: I26.99 Other pulmonary embolism without acute cor pulmonale (principal); Z79.01 Long term (current) use of anticoagulants; Z51.81 Encounter for therapeutic drug level monitoring | CPT/HCPCS: 85610; 99211 ==

== ENCOUNTER → 2022-12-10 09:54 | Outpatient (BNVA) | payer MEDICAID, SELFPAY | PROVIDERS: PCP Student in an Organized Health Care Education/Training Program; Visit Provider Internal Medicine | DX: I26.99 Other pulmonary embolism without acute cor pulmonale (principal); Z79.01 Long term (current) use of anticoagulants; Z51.81 Encounter for therapeutic drug level monitoring | CPT/HCPCS: 85610; 99211 ==

== ENCOUNTER → 2022-12-25 09:55 | Outpatient (BNVA) | payer MEDICAID, SELFPAY | PROVIDERS: PCP Student in an Organized Health Care Education/Training Program; Visit Provider Internal Medicine | DX: I26.99 Other pulmonary embolism without acute cor pulmonale (principal); Z79.01 Long term (current) use of anticoagulants; Z51.81 Encounter for therapeutic drug level monitoring | CPT/HCPCS: 85610; 99211 ==

== ENCOUNTER → 2023-01-15 09:56 | Outpatient (BNVA) | payer MEDICAID, SELFPAY | PROVIDERS: PCP Student in an Organized Health Care Education/Training Program; Visit Provider Internal Medicine | DX: I26.99 Other pulmonary embolism without acute cor pulmonale (principal); Z79.01 Long term (current) use of anticoagulants; Z51.81 Encounter for therapeutic drug level monitoring | CPT/HCPCS: 85610; 99211 ==

== ENCOUNTER → 2023-02-05 09:59 | Outpatient (BNVA) | payer MEDICAID, SELFPAY | PROVIDERS: PCP Student in an Organized Health Care Education/Training Program; Visit Provider Internal Medicine | DX: I26.99 Other pulmonary embolism without acute cor pulmonale (principal); Z79.01 Long term (current) use of anticoagulants; Z51.81 Encounter for therapeutic drug level monitoring | CPT/HCPCS: 85610; 99211 ==

== ENCOUNTER → 2023-03-05 09:59 | Outpatient (BNVA) | payer MEDICAID, SELFPAY | PROVIDERS: PCP Student in an Organized Health Care Education/Training Program; Visit Provider Internal Medicine | DX: I26.99 Other pulmonary embolism without acute cor pulmonale (principal); Z79.01 Long term (current) use of anticoagulants; Z51.81 Encounter for therapeutic drug level monitoring | CPT/HCPCS: 85610; 99211 ==

== ENCOUNTER → 2023-03-18 09:55 | Outpatient (BNVA) | payer MEDICAID, SELFPAY | PROVIDERS: PCP Student in an Organized Health Care Education/Training Program; Visit Provider Internal Medicine | DX: I26.99 Other pulmonary embolism without acute cor pulmonale (principal); Z79.01 Long term (current) use of anticoagulants; Z51.81 Encounter for therapeutic drug level monitoring | CPT/HCPCS: 85610; 99211 ==

== ENCOUNTER 2023-04-06 09:00 | Outpatient (REF) | payer MEDICAID, SELFPAY ==
--- NOTE | ~2023-04-06 | MM_ITS ---
EXAMINATION: MM SCREENING DIGITAL BREAST TOMOSYNTHESIS, BILATERAL CLINICAL INFORMATION: Screening. Asymptomatic. The lifetime risk of breast cancer based on the Tyrer-Cuzick Model is 5%. COMPARISON: Mammography: 03/06/2022, and dating back to 2010. TECHNIQUE: Digital breast tomosynthesis is performed in both the craniocaudal and mediolateral oblique views along with computer-aided detection (CAD). Synthesized 2D images are generated from the tomosynthesis. FINDINGS: There are scattered areas of fibroglandular density (ACR BI-RADS breast composition Category b). There are no significant masses, suspicious calcifications, or other abnormalities. Again, there are benign tightly grouped dermal calcifications posterior lower right breast and tightly grouped benign calcifications central upper left breast, which were present in 2013. There are early vascular calcifications. The overall parenchymal pattern is unchanged. MM/MM tomosynthesis screening BI IMPRESSION: No mammographic evidence of malignancy. ASSESSMENT: BI-RADS BI-RADS 2 - Benign Findings RECOMMENDATION: Routine annual mammography screening. 1 year F/U This examination should not preclude the clinical evaluation of a suspicious palpable abnormality. This patient's information was entered into a reminder system with a target due date for their next mammogram.
== END 2023-04-06 09:01 | disposition home or self-care (01) ==
LOC: HO.MAMMO 09:00
PROVIDERS: Visit Provider Student in an Organized Health Care Education/Training Program
DX: Z12.31 Encounter for screening mammogram for malignant neoplasm of breast (principal)
CPT/HCPCS: 77063; 77067

== ENCOUNTER → 2023-04-06 09:05 | Outpatient (BNV) | payer MEDICAID, SELFPAY | PROVIDERS: Visit Provider Radiology Diagnostic Radiology | DX: Z12.31 Encounter for screening mammogram for malignant neoplasm of breast (principal) | CPT/HCPCS: 77063; 77067 ==

== ENCOUNTER 2023-04-08 10:08 | Outpatient (AMB) | payer MEDICAID, SELFPAY ==
[2023-04-08 10:23] LABS: Prothrombin Time Whole Bld POC 33.6 sec (11.1-13.5); ~PT, ~INR - Anti Coag Clinic 2.8 (0.9-1.1)
--- NOTE | 2023-04-08 10:24 | MHC.OFFVISCO ---
Intake Intake Visit Reasons: Anticoagulation Allergies No Known Allergies Allergy (Mild, Verified 04/08/23 10:17) N/A Medication List - Last Reconciled 04/08/23 by Vicki Armendariz RN acetaminophen ER (Tylenol 8 Hour) 650 mg PO Q8H PRN amoxicillin 2,000 mg PO clusysa-jjbkaxjfpntac-swtatvaz 250-250-65 mg (Pain Reliever Plus) 0 tabs PO chlorhexidine gluconate 4% (Betasept Surgical Scrub) topical DAILY PRN cyclobenzaprine 5 mg PO BEDTIME diphenhydramine HCl (Benadryl) 25 mg PO BEDTIME PRN famotidine 20 mg PO DAILY fluoxetine 10 mg PO QAM gemfibrozil 600 mg PO BID ketotifen fumarate 0.025%(0.035%) 1 drp ophthalmic (eye) BID lidocaine-prilocaine 2.5-2.5 % grams topical DAILY PRN methocarbamol 500 mg PO QID pantoprazole 20 mg PO DAILY trazodone 50 mg PO BEDTIME triamcinolone acetonide 0.5% topical BID warfarin 4 mg See Protocol PO DAILY Nursing Note Amb to [facility] using cane, 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, 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 Medications and supplements reviewed No changes in health, diet, medications, or supplements no date yet for deep dental cleaning Denies any unusual signs and symptoms of bruising, bleeding Denies any new Chest pain, SOB, or clotting INR: 2.8 in therapeutic range Nutritional guidance given: balance greens and reds in diet Dose: continue usual dosing; 4 mg daily F/U INR: 3 weeks Patient verbalizes understanding of instructions given with accurate read back/ teach back of dosing Coding Level of Care Code Est Patient Level 1 Diagnoses Current use of anticoagulant therapy Z79.01 Time Spent (min) 15 Assessment & Plan Assessment & Plan (1) Current use of anticoagulant therapy: Code(s): Z79.01 - [facility] (current) use of anticoagulants Category: Medical
== END 2023-04-08 10:28 | disposition home or self-care (01) ==
LOC: HO.ACS 10:08
PROVIDERS: PCP Student in an Organized Health Care Education/Training Program; Visit Provider Internal Medicine
DX: Z79.01 Long term (current) use of anticoagulants (principal)

== ENCOUNTER → 2023-04-08 10:08 | Outpatient (BNVA) | payer MEDICAID, SELFPAY | PROVIDERS: PCP Student in an Organized Health Care Education/Training Program; Visit Provider Internal Medicine | DX: I26.99 Other pulmonary embolism without acute cor pulmonale (principal); Z79.01 Long term (current) use of anticoagulants; Z51.81 Encounter for therapeutic drug level monitoring | CPT/HCPCS: 85610; 99211 ==

== ENCOUNTER 2023-04-29 10:19 | Outpatient (AMB) | payer MEDICAID, SELFPAY ==
--- NOTE | 2023-04-29 10:43 | MHC.OFFVISCO ---
Intake Intake Visit Reasons: Anticoagulation Allergies No Known Allergies Allergy (Mild, Verified 04/29/23 10:47) N/A Medication List - Last Reconciled 04/29/23 by Halima Cortez RN acetaminophen ER (Tylenol 8 Hour) 650 mg PO Q8H PRN amoxicillin 2,000 mg PO zozhwbb-nflufjzmspgzs-sidpnylg 250-250-65 mg (Pain Reliever Plus) 0 tabs PO chlorhexidine gluconate 4% (Betasept Surgical Scrub) topical DAILY PRN cyclobenzaprine 5 mg PO BEDTIME diphenhydramine HCl (Benadryl) 25 mg PO BEDTIME PRN famotidine 20 mg PO DAILY fluoxetine 10 mg PO QAM gemfibrozil 600 mg PO BID ketotifen fumarate 0.025%(0.035%) 1 drp ophthalmic (eye) BID lidocaine-prilocaine 2.5-2.5 % grams topical DAILY PRN methocarbamol 500 mg PO QID pantoprazole 20 mg PO DAILY trazodone 50 mg PO BEDTIME triamcinolone acetonide 0.5% topical BID warfarin 4 mg See Protocol PO DAILY Nursing Note INR: 2.8- in therapeutic range Medications and supplements reviewed- no changes No changes in health, diet, medications, or supplements, Denies any signs and symptoms of bleeding or bruising or clotting. Bleeding, bruising, clotting discussed Nutritional guidance given Dose: 4mg x 7 F/U INR: 3 weeks Patient verbalizes understanding of instructions given amb with cane Coding Level of Care Code Est Patient Level 1 Diagnoses Current use of anticoagulant therapy Z79.01 Results AMB INR Fingerstick AMB INR Fingerstick 2.8 Last Edit by Halima Cortez RN on 04/29/23 10:45 Assessment & Plan Assessment & Plan (1) Current use of anticoagulant therapy: Code(s): Z79.01 - [facility] (current) use of anticoagulants Category: Medical
[2023-04-30 10:32] LABS: Prothrombin Time Whole Bld POC 34.2 sec (11.1-13.5); ~PT, ~INR - Anti Coag Clinic 2.8 (0.9-1.1)
== END 2023-04-29 10:48 | disposition home or self-care (01) ==
LOC: HO.ACS 10:19
PROVIDERS: PCP Student in an Organized Health Care Education/Training Program; Visit Provider Internal Medicine
DX: Z79.01 Long term (current) use of anticoagulants (principal)

== ENCOUNTER → 2023-04-29 10:19 | Outpatient (BNVA) | payer MEDICAID, SELFPAY | PROVIDERS: PCP Student in an Organized Health Care Education/Training Program; Visit Provider Internal Medicine | DX: I26.99 Other pulmonary embolism without acute cor pulmonale (principal); Z79.01 Long term (current) use of anticoagulants; Z51.81 Encounter for therapeutic drug level monitoring | CPT/HCPCS: 85610; 99211 ==

== ENCOUNTER 2023-05-20 09:57 | Outpatient (AMB) | payer MEDICAID, SELFPAY ==
[2023-05-20 10:14] LABS: Prothrombin Time Whole Bld POC 28.9 sec (11.1-13.5); ~PT, ~INR - Anti Coag Clinic 2.4 (0.9-1.1)
--- NOTE | 2023-05-20 10:17 | MHC.OFFVISCO ---
Intake Intake Visit Reasons: Anticoagulation Allergies No Known Allergies Allergy (Mild, Verified 05/20/23 10:07) N/A Medication List - Last Reconciled 05/20/23 by Halima Cortez RN acetaminophen ER (Tylenol 8 Hour) 650 mg PO Q8H PRN amoxicillin 2,000 mg PO ietdooz-eaauauwfijvdj-bcwrgsux 250-250-65 mg (Pain Reliever Plus) 0 tabs PO chlorhexidine gluconate 4% (Betasept Surgical Scrub) topical DAILY PRN cyclobenzaprine 5 mg PO BEDTIME diphenhydramine HCl (Benadryl) 25 mg PO BEDTIME PRN famotidine 20 mg PO DAILY fluoxetine 10 mg PO QAM gemfibrozil 600 mg PO BID ketotifen fumarate 0.025%(0.035%) 1 drp ophthalmic (eye) BID lidocaine-prilocaine 2.5-2.5 % grams topical DAILY PRN methocarbamol 500 mg PO QID pantoprazole 20 mg PO DAILY trazodone 50 mg PO BEDTIME triamcinolone acetonide 0.5% topical BID warfarin 4 mg See Protocol PO DAILY Nursing Note INR: 2.4- in therapeutic range Medications and supplements reviewed- pt states may start magnesium supp and vit d- no interaction with warfarin per micromedex No changes in health, diet, medications, or supplements, Denies any signs and symptoms of bleeding or bruising or clotting. 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
== END 2023-05-20 10:19 | disposition home or self-care (01) ==
LOC: HO.ACS 09:57
PROVIDERS: PCP Student in an Organized Health Care Education/Training Program; Visit Provider Internal Medicine
DX: Z79.01 Long term (current) use of anticoagulants (principal)

== ENCOUNTER → 2023-05-20 09:57 | Outpatient (BNVA) | payer MEDICAID, SELFPAY | PROVIDERS: PCP Student in an Organized Health Care Education/Training Program; Visit Provider Internal Medicine | DX: I26.99 Other pulmonary embolism without acute cor pulmonale (principal); Z79.01 Long term (current) use of anticoagulants; Z51.81 Encounter for therapeutic drug level monitoring | CPT/HCPCS: 85610; 99211 ==

== ENCOUNTER 2023-06-10 09:52 | Outpatient (AMB) | payer MEDICAID, SELFPAY ==
[2023-06-10 10:19] LABS: Prothrombin Time Whole Bld POC 31.2 sec (11.1-13.5); ~PT, ~INR - Anti Coag Clinic 2.6 (0.9-1.1)
--- NOTE | 2023-06-10 10:20 | MHC.OFFVISCO ---
Intake Intake Visit Reasons: Anticoagulation Allergies No Known Allergies Allergy (Mild, Verified 06/10/23 10:03) N/A Medication List - Last Reconciled 06/10/23 by Vicki Armendariz RN acetaminophen ER (Tylenol 8 Hour) 650 mg PO Q8H PRN amoxicillin 2,000 mg PO nhglzjz-xjruowmvinmyq-uouqfjco 250-250-65 mg (Pain Reliever Plus) 0 tabs PO [calcium,magnesium,zinc and vitamin D3 1 tab PO DAILY] chlorhexidine gluconate 4% (Betasept Surgical Scrub) topical DAILY PRN [collagen and C PO] cyclobenzaprine 5 mg PO BEDTIME diphenhydramine HCl (Benadryl) 25 mg PO BEDTIME PRN famotidine 20 mg PO DAILY fluoxetine 10 mg PO QAM gemfibrozil 600 mg PO BID ketotifen fumarate 0.025%(0.035%) 1 drp ophthalmic (eye) BID lidocaine-prilocaine 2.5-2.5 % grams topical DAILY PRN methocarbamol 500 mg PO QID pantoprazole 20 mg PO DAILY trazodone 50 mg PO BEDTIME triamcinolone acetonide 0.5% topical BID warfarin 4 mg See Protocol PO DAILY Nursing Note Amb to [facility] using cane, accomp by friend, 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 Medications and supplements reviewed and pt going to start new supplements, pill containing calcium, magnesium, zinc and vitamind D3 (no warfarin interaction) and a collagen supplement collagen and vitamin C (no major warfarin interaction, however increased vitamin C can lower the INR, no noted strength of the vitamin C) No other changes in health, diet, medications, or supplements Denies any unusual signs and symptoms of bruising, bleeding Denies any new Chest pain, SOB, or clotting INR: 2.6 in therapeutic range Nutritional guidance given: balance greens and reds in diet Dose: continue usual dosing;4mg daily F/U INR:3 weeks Patient verbalizes understanding of instructions given with accurate read back/ teach back of dosing Coding Level of Care Code Est Patient Level 1 Diagnoses Current use of anticoagulant therapy Z79.01 Time Spent (min) 20 Results AMB INR Fingerstick AMB INR Fingerstick 2.6 Last Edit by Vicki Armendariz RN on 06/10/23 10:19 interface failure Assessment & Plan Assessment & Plan (1) Current use of anticoagulant therapy: Code(s): Z79.01 - [facility] (current) use of anticoagulants Category: Medical
== END 2023-06-10 10:29 | disposition home or self-care (01) ==
LOC: HO.ACS 09:52
PROVIDERS: PCP Student in an Organized Health Care Education/Training Program; Visit Provider Internal Medicine
DX: Z79.01 Long term (current) use of anticoagulants (principal)

== ENCOUNTER → 2023-06-10 09:52 | Outpatient (BNVA) | payer MEDICAID, SELFPAY | PROVIDERS: PCP Student in an Organized Health Care Education/Training Program; Visit Provider Internal Medicine | DX: I26.99 Other pulmonary embolism without acute cor pulmonale (principal); Z79.01 Long term (current) use of anticoagulants; Z51.81 Encounter for therapeutic drug level monitoring | CPT/HCPCS: 85610; 99211 ==

== ENCOUNTER 2023-07-01 09:59 | Outpatient (AMB) | payer MEDICAID, SELFPAY ==
--- NOTE | 2023-07-01 10:16 | MHC.OFFVISCO ---
Intake Intake Visit Reasons: Anticoagulation Allergies No Known Allergies Allergy (Mild, Verified 07/01/23 10:10) N/A Medication List - Last Reconciled 07/01/23 by Prudence Maya RN acetaminophen ER (Tylenol 8 Hour) 650 mg PO Q8H PRN amoxicillin 2,000 mg PO oxlqqgq-jecogngjryxcm-xkwlcbub 250-250-65 mg (Pain Reliever Plus) 0 tabs PO [calcium,magnesium,zinc and vitamin D3 1 tab PO DAILY] chlorhexidine gluconate 4% (Betasept Surgical Scrub) topical DAILY PRN [collagen and C PO] cyclobenzaprine 5 mg PO BEDTIME diphenhydramine HCl (Benadryl) 25 mg PO BEDTIME PRN famotidine 20 mg PO DAILY fluoxetine 10 mg PO QAM gemfibrozil 600 mg PO BID ketotifen fumarate 0.025%(0.035%) 1 drp ophthalmic (eye) BID lidocaine-prilocaine 2.5-2.5 % grams topical DAILY PRN methocarbamol 500 mg PO QID pantoprazole 20 mg PO DAILY trazodone 50 mg PO BEDTIME triamcinolone acetonide 0.5% topical BID warfarin 4 mg See Protocol PO DAILY Nursing Note INR: 3.5 NOT IN therapeutic range S/P COVID Medications and supplements reviewed No changes in health, diet, medications, or supplements, Denies any signs and symptoms of bleeding or bruising or clotting. 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
[2023-07-01 10:19] LABS: ~PT, ~INR - Anti Coag Clinic 3.5 (0.9-1.1)
== END 2023-07-01 10:21 | disposition home or self-care (01) ==
LOC: HO.ACS 09:59
PROVIDERS: PCP Student in an Organized Health Care Education/Training Program; Visit Provider Internal Medicine
DX: Z79.01 Long term (current) use of anticoagulants (principal)

== ENCOUNTER → 2023-07-01 09:59 | Outpatient (BNVA) | payer MEDICAID, SELFPAY | PROVIDERS: PCP Student in an Organized Health Care Education/Training Program; Visit Provider Internal Medicine | DX: I26.99 Other pulmonary embolism without acute cor pulmonale (principal); Z79.01 Long term (current) use of anticoagulants; Z51.81 Encounter for therapeutic drug level monitoring | CPT/HCPCS: 85610; 99211 ==

== ENCOUNTER 2023-07-22 09:57 | Outpatient (AMB) | payer MEDICAID, SELFPAY ==
[2023-07-22 10:09] LABS: Prothrombin Time Whole Bld POC 45.4 sec (11.1-13.5); ~PT, ~INR - Anti Coag Clinic 3.8 (0.9-1.1)
--- NOTE | 2023-07-22 10:15 | MHC.OFFVISCO ---
Intake Intake Visit Reasons: Anticoagulation Allergies No Known Allergies Allergy (Mild, Verified 07/22/23 10:07) N/A Medication List - Last Reconciled 07/22/23 by Prudence Maya RN acetaminophen ER (Tylenol 8 Hour) 650 mg PO Q8H PRN amoxicillin 2,000 mg PO jkxrcty-oagbtxutxxwnr-yqimiasa 250-250-65 mg (Pain Reliever Plus) 0 tabs PO [calcium,magnesium,zinc and vitamin D3 1 tab PO DAILY] chlorhexidine gluconate 4% (Betasept Surgical Scrub) topical DAILY PRN [collagen and C PO] cyclobenzaprine 5 mg PO BEDTIME diphenhydramine HCl (Benadryl) 25 mg PO BEDTIME PRN famotidine 20 mg PO DAILY fluoxetine 10 mg PO QAM gemfibrozil 600 mg PO BID ketotifen fumarate 0.025%(0.035%) 1 drp ophthalmic (eye) BID lidocaine-prilocaine 2.5-2.5 % grams topical DAILY PRN methocarbamol 500 mg PO QID pantoprazole 20 mg PO DAILY trazodone 50 mg PO BEDTIME triamcinolone acetonide 0.5% topical BID warfarin 4 mg See Protocol PO DAILY Nursing Note INR: 3.8 NOT in therapeutic range Medications and supplements reviewed HAS BEEN EATING MORE GRAPES THAN USUAL Denies any signs and symptoms of bleeding or bruising or clotting. 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
== END 2023-07-22 10:19 | disposition home or self-care (01) ==
LOC: HO.ACS 09:57
PROVIDERS: PCP Student in an Organized Health Care Education/Training Program; Visit Provider Internal Medicine
DX: Z79.01 Long term (current) use of anticoagulants (principal)

== ENCOUNTER → 2023-07-22 09:57 | Outpatient (BNVA) | payer MEDICAID, SELFPAY | PROVIDERS: PCP Student in an Organized Health Care Education/Training Program; Visit Provider Internal Medicine | DX: I26.99 Other pulmonary embolism without acute cor pulmonale (principal); Z79.01 Long term (current) use of anticoagulants; Z51.81 Encounter for therapeutic drug level monitoring | CPT/HCPCS: 85610; 99211 ==

== ENCOUNTER 2023-08-05 10:03 | Outpatient (AMB) | payer MEDICAID, SELFPAY ==
[2023-08-05 10:19] LABS: Prothrombin Time Whole Bld POC 35.8 sec (11.1-13.5)
--- NOTE | 2023-08-05 10:23 | MHC.OFFVISCO ---
Intake Intake Visit Reasons: Anticoagulation Allergies No Known Allergies Allergy (Mild, Verified 08/05/23 10:09) N/A Medication List - Last Reconciled 08/05/23 by Prudence Maya RN acetaminophen ER (Tylenol 8 Hour) 650 mg PO Q8H PRN amoxicillin 2,000 mg PO lljqcuz-afavystckocmn-iijchxix 250-250-65 mg (Pain Reliever Plus) 0 tabs PO [calcium,magnesium,zinc and vitamin D3 1 tab PO DAILY] chlorhexidine gluconate 4% (Betasept Surgical Scrub) topical DAILY PRN cyclobenzaprine 5 mg PO BEDTIME diphenhydramine HCl (Benadryl) 25 mg PO BEDTIME PRN famotidine 20 mg PO DAILY fluoxetine 10 mg PO QAM gemfibrozil 600 mg PO BID ketotifen fumarate 0.025%(0.035%) 1 drp ophthalmic (eye) BID lidocaine-prilocaine 2.5-2.5 % grams topical DAILY PRN methocarbamol 500 mg PO QID pantoprazole 20 mg PO DAILY trazodone 50 mg PO BEDTIME triamcinolone acetonide 0.5% topical BID warfarin 4 mg See Protocol PO DAILY Nursing Note INR: 3.0 in therapeutic range Medications and supplements reviewed No changes in health, diet, medications, or supplements, Denies any signs and symptoms of bleeding or bruising or clotting. Bleeding, bruising, clotting discussed Nutritional guidance given - EAT JUST A LITTLE MORE GREENS AND VIT C AND PROTEIM Dose: KEEP 4MG DAILY FOR NOW F/U INR: 3 WEEKS PER PT REQUEST Patient verbalizes understanding of instructions given Coding Level of Care Code Est Patient Level 1 Diagnoses Current use of anticoagulant therapy Z79.01 Assessment & Plan Assessment & Plan (1) Current use of anticoagulant therapy: Code(s): Z79.01 - [facility] (current) use of anticoagulants Category: Medical
== END 2023-08-05 10:28 | disposition home or self-care (01) ==
LOC: HO.ACS 10:03
PROVIDERS: PCP Student in an Organized Health Care Education/Training Program; Visit Provider Internal Medicine
DX: Z79.01 Long term (current) use of anticoagulants (principal)

== ENCOUNTER → 2023-08-05 10:03 | Outpatient (BNVA) | payer MEDICAID, SELFPAY | PROVIDERS: PCP Student in an Organized Health Care Education/Training Program; Visit Provider Internal Medicine | DX: I26.99 Other pulmonary embolism without acute cor pulmonale (principal); Z79.01 Long term (current) use of anticoagulants; Z51.81 Encounter for therapeutic drug level monitoring | CPT/HCPCS: 85610; 99211 ==

== ENCOUNTER 2023-08-26 09:58 | Outpatient (AMB) | payer MEDICAID, SELFPAY ==
--- NOTE | 2023-08-26 10:13 | MHC.OFFVISCO ---
Intake Intake Visit Reasons: Anticoagulation Allergies No Known Allergies Allergy (Mild, Verified 08/26/23 10:09) N/A Medication List - Last Reconciled 08/26/23 by Halima Cortez RN acetaminophen ER (Tylenol 8 Hour) 650 mg PO Q8H PRN amoxicillin 2,000 mg PO ndobljg-wilfxoomolctx-ktbjlajm 250-250-65 mg (Pain Reliever Plus) 0 tabs PO [calcium,magnesium,zinc and vitamin D3 1 tab PO DAILY] chlorhexidine gluconate 4% (Betasept Surgical Scrub) topical DAILY PRN cyclobenzaprine 5 mg PO BEDTIME diphenhydramine HCl (Benadryl) 25 mg PO BEDTIME PRN famotidine 20 mg PO DAILY fluoxetine 10 mg PO QAM gemfibrozil 600 mg PO BID ketotifen fumarate 0.025%(0.035%) 1 drp ophthalmic (eye) BID lidocaine-prilocaine 2.5-2.5 % grams topical DAILY PRN methocarbamol 500 mg PO QID pantoprazole 20 mg PO DAILY trazodone 50 mg PO BEDTIME triamcinolone acetonide 0.5% topical BID warfarin 4 mg See Protocol PO DAILY Nursing Note INR: 3.0- in therapeutic range of 2-3 Medications and supplements reviewed- no changes No changes in health, diet, medications, or supplements, Denies any signs and symptoms of bleeding or bruising or clotting. 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
[2023-08-26 10:14] LABS: Prothrombin Time Whole Bld POC 35.8 sec (11.1-13.5)
== END 2023-08-26 10:20 | disposition home or self-care (01) ==
LOC: HO.ACS 09:59
PROVIDERS: PCP Student in an Organized Health Care Education/Training Program; Visit Provider Internal Medicine
DX: Z79.01 Long term (current) use of anticoagulants (principal)

== ENCOUNTER → 2023-08-26 09:58 | Outpatient (BNVA) | payer MEDICAID, SELFPAY | PROVIDERS: PCP Student in an Organized Health Care Education/Training Program; Visit Provider Internal Medicine | DX: I26.99 Other pulmonary embolism without acute cor pulmonale (principal); Z79.01 Long term (current) use of anticoagulants; Z51.81 Encounter for therapeutic drug level monitoring | CPT/HCPCS: 85610; 99211 ==

== ENCOUNTER 2023-09-16 10:03 | Outpatient (AMB) | payer MEDICAID, SELFPAY ==
[2023-09-16 10:11] LABS: ~PT, ~INR - Anti Coag Clinic 2.2 (0.9-1.1)
--- NOTE | 2023-09-16 10:12 | MHC.OFFVISCO ---
Intake Intake Visit Reasons: Anticoagulation Allergies No Known Allergies Allergy (Mild, Verified 09/16/23 10:04) N/A Medication List - Last Reconciled 09/16/23 by Halima Cortez RN acetaminophen ER (Tylenol 8 Hour) 650 mg PO Q8H PRN amoxicillin 2,000 mg PO oavpowi-qdjycmrgevxag-rqzgzjfg 250-250-65 mg (Pain Reliever Plus) 0 tabs PO [calcium,magnesium,zinc and vitamin D3 1 tab PO DAILY] chlorhexidine gluconate 4% (Betasept Surgical Scrub) topical DAILY PRN cyclobenzaprine 5 mg PO BEDTIME diphenhydramine HCl (Benadryl) 25 mg PO BEDTIME PRN famotidine 20 mg PO DAILY fluoxetine 10 mg PO QAM gemfibrozil 600 mg PO BID ketotifen fumarate 0.025%(0.035%) 1 drp ophthalmic (eye) BID lidocaine-prilocaine 2.5-2.5 % grams topical DAILY PRN methocarbamol 500 mg PO QID pantoprazole 20 mg PO DAILY trazodone 50 mg PO BEDTIME triamcinolone acetonide 0.5% topical BID warfarin 4 mg See Protocol PO DAILY Nursing Note INR: 2.2- in therapeutic range of 2-3 Medications and supplements reviewed- collagen with vit c 3 caps daily- no interaction with warfarin per micromedex No changes in health, diet, medications, or supplements, Denies any signs and symptoms of bleeding or bruising or clotting. 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
== END 2023-09-16 10:17 | disposition home or self-care (01) ==
LOC: HO.ACS 10:03
PROVIDERS: PCP Student in an Organized Health Care Education/Training Program; Visit Provider Internal Medicine
DX: Z79.01 Long term (current) use of anticoagulants (principal)

== ENCOUNTER → 2023-09-16 10:03 | Outpatient (BNVA) | payer MEDICAID, SELFPAY | PROVIDERS: PCP Student in an Organized Health Care Education/Training Program; Visit Provider Internal Medicine | DX: I26.99 Other pulmonary embolism without acute cor pulmonale (principal); Z79.01 Long term (current) use of anticoagulants; Z51.81 Encounter for therapeutic drug level monitoring | CPT/HCPCS: 85610; 99211 ==

== ENCOUNTER 2023-10-07 10:06 | Outpatient (AMB) | payer MEDICAID, SELFPAY ==
--- NOTE | 2023-10-07 10:20 | MHC.OFFVISCO ---
Intake Intake Visit Reasons: Anticoagulation Allergies No Known Allergies Allergy (Mild, Verified 10/07/23 10:15) N/A Medication List - Last Reconciled 10/07/23 by Prudence Maya RN acetaminophen ER (Tylenol 8 Hour) 650 mg PO Q8H PRN amoxicillin 2,000 mg PO ikkgcdt-sugwjynwgbglg-ojnspugp 250-250-65 mg (Pain Reliever Plus) 0 tabs PO [calcium,magnesium,zinc and vitamin D3 1 tab PO DAILY] chlorhexidine gluconate 4% (Betasept Surgical Scrub) topical DAILY PRN sjbditee-tosygt-ixmhdbff acid 500 mg-800 mcg- 50 mg (Collagen 1500 Plus C) 3 caps PO DAILY cyclobenzaprine 5 mg PO BEDTIME diphenhydramine HCl (Benadryl) 25 mg PO BEDTIME PRN famotidine 20 mg PO DAILY fluoxetine 10 mg PO QAM gemfibrozil 600 mg PO BID ketotifen fumarate 0.025%(0.035%) 1 drp ophthalmic (eye) BID lidocaine-prilocaine 2.5-2.5 % grams topical DAILY PRN methocarbamol 500 mg PO QID pantoprazole 20 mg PO DAILY trazodone 50 mg PO BEDTIME triamcinolone acetonide 0.5% topical BID warfarin 4 mg See Protocol PO DAILY Nursing Note INR: 2.4 in therapeutic range Medications and supplements reviewed No changes in health, diet, medications, or supplements, Denies any signs and symptoms of bleeding or bruising or clotting. Bleeding, bruising, clotting discussed Nutritional guidance given Dose: 4MG DAILY F/U INR: 3 WEEKS Patient verbalizes understanding of instructions given Coding Level of Care Code Est Patient Level 1 Diagnoses Current use of anticoagulant therapy Z79.01 Assessment & Plan Assessment & Plan (1) Current use of anticoagulant therapy: Code(s): Z79.01 - senior living (current) use of anticoagulants Category: Medical
[2023-10-07 10:21] LABS: Prothrombin Time Whole Bld POC 28.3 sec (11.1-13.5); ~PT, ~INR - Anti Coag Clinic 2.4 (0.9-1.1)
== END 2023-10-07 10:25 | disposition home or self-care (01) ==
LOC: HO.ACS 10:06
PROVIDERS: PCP Student in an Organized Health Care Education/Training Program; Visit Provider Internal Medicine
DX: Z79.01 Long term (current) use of anticoagulants (principal)

== ENCOUNTER → 2023-10-07 10:06 | Outpatient (BNVA) | payer MEDICAID, SELFPAY | PROVIDERS: PCP Student in an Organized Health Care Education/Training Program; Visit Provider Internal Medicine | DX: I26.99 Other pulmonary embolism without acute cor pulmonale (principal); Z79.01 Long term (current) use of anticoagulants; Z51.81 Encounter for therapeutic drug level monitoring | CPT/HCPCS: 85610; 99211 ==

== ENCOUNTER 2023-10-28 10:00 | Outpatient (AMB) | payer MEDICAID, SELFPAY ==
[2023-10-28 10:12] LABS: Prothrombin Time Whole Bld POC 28.5 sec (11.1-13.5); ~PT, ~INR - Anti Coag Clinic 2.4 (0.9-1.1)
--- NOTE | 2023-10-28 10:29 | MHC.OFFVISCO ---
Intake Intake Visit Reasons: Anticoagulation Allergies No Known Allergies Allergy (Mild, Verified 10/28/23 10:05) N/A Medication List - Last Reconciled 10/28/23 by Prudence Maya RN acetaminophen ER (Tylenol 8 Hour) 650 mg PO Q8H PRN amoxicillin 2,000 mg PO iycsqhl-gouyzdsousyso-abgxzlaa 250-250-65 mg (Pain Reliever Plus) 0 tabs PO [calcium,magnesium,zinc and vitamin D3 1 tab PO DAILY] chlorhexidine gluconate 4% (Betasept Surgical Scrub) topical DAILY PRN pgjvelkq-anzwwu-owvwhvpi acid 500 mg-800 mcg- 50 mg (Collagen 1500 Plus C) 3 caps PO DAILY cyclobenzaprine 5 mg PO BEDTIME diphenhydramine HCl (Benadryl) 25 mg PO BEDTIME PRN famotidine 20 mg PO DAILY fluoxetine 10 mg PO QAM gemfibrozil 600 mg PO BID ketotifen fumarate 0.025%(0.035%) 1 drp ophthalmic (eye) BID lidocaine-prilocaine 2.5-2.5 % grams topical DAILY PRN methocarbamol 500 mg PO QID pantoprazole 20 mg PO DAILY trazodone 50 mg PO BEDTIME triamcinolone acetonide 0.5% topical BID warfarin 4 mg See Protocol PO DAILY Nursing Note INR: 2.4 in therapeutic range Medications and supplements reviewed plan for dental cleaning 11/23/23 - needs INR in lower end of range wants to add stephen seeds to her diet they have omega 3 and 6 may raise the INR -but only using in small amts Denies any signs and symptoms of bleeding or bruising or clotting. 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
== END 2023-10-28 10:36 | disposition home or self-care (01) ==
LOC: HO.ACS 10:00
PROVIDERS: PCP Student in an Organized Health Care Education/Training Program; Visit Provider Internal Medicine
DX: Z79.01 Long term (current) use of anticoagulants (principal)

== ENCOUNTER → 2023-10-28 10:00 | Outpatient (BNVA) | payer MEDICAID, SELFPAY | PROVIDERS: PCP Student in an Organized Health Care Education/Training Program; Visit Provider Internal Medicine | DX: I26.99 Other pulmonary embolism without acute cor pulmonale (principal); Z79.01 Long term (current) use of anticoagulants; Z51.81 Encounter for therapeutic drug level monitoring | CPT/HCPCS: 85610; 99211 ==

== ENCOUNTER 2023-11-22 09:54 | Outpatient (AMB) | payer MEDICAID, SELFPAY ==
[2023-11-22 10:07] LABS: Prothrombin Time Whole Bld POC 20.7 sec (11.1-13.5); ~PT, ~INR - Anti Coag Clinic 1.7 (0.9-1.1)
--- NOTE | 2023-11-22 10:19 | MHC.OFFVISCO ---
Intake Intake Visit Reasons: Anticoagulation Allergies No Known Allergies Allergy (Mild, Verified 11/22/23 09:59) N/A Medication List - Last Reconciled 11/22/23 by Vicki Mcfadden, MESERET acetaminophen ER (Tylenol 8 Hour) 650 mg PO Q8H PRN amoxicillin 2,000 mg PO xlpvsxi-agsdsfputmzqh-mesvlgek 250-250-65 mg (Pain Reliever Plus) 0 tabs PO [calcium,magnesium,zinc and vitamin D3 1 tab PO DAILY] chlorhexidine gluconate 4% (Betasept Surgical Scrub) topical DAILY PRN dltqnoet-dfefed-whctibmu acid 500 mg-800 mcg- 50 mg (Collagen 1500 Plus C) 3 caps PO DAILY cyclobenzaprine 5 mg PO BEDTIME diphenhydramine HCl (Benadryl) 25 mg PO BEDTIME PRN famotidine 20 mg PO DAILY fluoxetine 10 mg PO QAM gemfibrozil 600 mg PO BID ketotifen fumarate 0.025%(0.035%) 1 drp ophthalmic (eye) BID lidocaine-prilocaine 2.5-2.5 % grams topical DAILY PRN methocarbamol 500 mg PO QID pantoprazole 20 mg PO DAILY trazodone 50 mg PO BEDTIME triamcinolone acetonide 0.5% topical BID warfarin 4 mg See Protocol PO DAILY Nursing Note INR 1.7??out of therapeutic range of 2-3 Medications and supplements reviewed Patient status: pt is well, has dental appt tomorrow for cleaning Medications or supplements: no changes Diet: no changes Denies any signs and symptoms of bleeding or clotting or unusual bruising Bleeding, bruising, clotting discussed Nutritional guidance given: hold greens today then continue to balance greens and reds Dose: keep same dose of 4mg daily except to take 6mg tomorrow after dental appt F/U INR Date : 3 weeks?? Patient verbalizing understanding of instructions given. 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
== END 2023-11-22 10:39 | disposition home or self-care (01) ==
LOC: HO.ACS 09:54
PROVIDERS: PCP Student in an Organized Health Care Education/Training Program; Visit Provider Internal Medicine
DX: Z79.01 Long term (current) use of anticoagulants (principal)

== ENCOUNTER → 2023-11-22 09:54 | Outpatient (BNVA) | payer MEDICAID, SELFPAY | PROVIDERS: PCP Student in an Organized Health Care Education/Training Program; Visit Provider Internal Medicine | DX: I26.99 Other pulmonary embolism without acute cor pulmonale (principal); Z79.01 Long term (current) use of anticoagulants; Z51.81 Encounter for therapeutic drug level monitoring | CPT/HCPCS: 85610; 99211 ==

== ENCOUNTER 2023-12-13 09:59 | Outpatient (AMB) | payer MEDICAID, SELFPAY ==
[2023-12-13 10:06] LABS: Prothrombin Time Whole Bld POC 22.8 sec (11.1-13.5); ~PT, ~INR - Anti Coag Clinic 1.9 (0.9-1.1)
--- NOTE | 2023-12-13 10:07 | MHC.OFFVISCO ---
Intake Intake Visit Reasons: Anticoagulation Allergies No Known Allergies Allergy (Mild, Verified 12/13/23 10:01) N/A Medication List - Last Reconciled 12/13/23 by Prudence Maya RN acetaminophen ER (Tylenol 8 Hour) 650 mg PO Q8H PRN amoxicillin 2,000 mg PO nhxyhyt-piwpnafqbmogl-vclnrqqy 250-250-65 mg (Pain Reliever Plus) 0 tabs PO [calcium,magnesium,zinc and vitamin D3 1 tab PO DAILY] cephalexin 500 mg PO BID cetirizine 10 mg PO chlorhexidine gluconate 4% (Betasept Surgical Scrub) topical DAILY PRN cgzjooum-zodxgv-tvjbyuwn acid 500 mg-800 mcg- 50 mg (Collagen 1500 Plus C) 3 caps PO DAILY cyclobenzaprine 5 mg PO BEDTIME diphenhydramine HCl (Benadryl) 25 mg PO BEDTIME PRN diphenhydramine HCl (Banophen) 25 mg PO BEDTIME PRN famotidine 20 mg PO DAILY fluoxetine 10 mg PO QAM gemfibrozil 600 mg PO BID ketotifen fumarate 0.025%(0.035%) 1 drp ophthalmic (eye) BID lidocaine-prilocaine 2.5-2.5 % grams topical DAILY PRN methocarbamol 500 mg PO QID pantoprazole 20 mg PO DAILY trazodone 50 mg PO BEDTIME triamcinolone acetonide 0.5% topical BID warfarin 4 mg See Protocol PO DAILY Nursing Note INR: 1.9 just out of therapeutic range- to have deep dental cleaning tomorrow - it has been r/s several times enc pt to tell dentist - she cannot keep r/s appt -that it is not safe for her to keep INRs low too long Medications and supplements reviewed- she was on an antbx 2 weeks ago for a bug bite - cepahlexin that may raise the INR No changes in health, diet, medications, or supplements, Denies any signs and symptoms of bleeding or bruising or clotting. Bleeding, bruising, clotting discussed Nutritional guidance given- review food list weekly Dose: 2mg today then increase tomorrow dose to 6mg tomorrow after cleaning (she takes warfarin in the morning)then resume 4mg daily F/U INR: 10 days s/p deep dental cleaning an 2 low INR s Patient verbalizes understanding of instructions given Dentis office called a [facility] and they accepted the INR and pt to have c leaning tomorrow Coding Level of Care Code Est Patient Level 1 Diagnoses Current use of anticoagulant therapy Z79.01 Assessment & Plan Assessment & Plan (1) Current use of anticoagulant therapy: 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
== END 2023-12-13 10:31 | disposition home or self-care (01) ==
LOC: HO.ACS 09:59
PROVIDERS: PCP Student in an Organized Health Care Education/Training Program; Visit Provider Internal Medicine
DX: Z79.01 Long term (current) use of anticoagulants (principal)

== ENCOUNTER → 2023-12-13 09:59 | Outpatient (BNVA) | payer MEDICAID, SELFPAY | PROVIDERS: PCP Student in an Organized Health Care Education/Training Program; Visit Provider Internal Medicine | DX: I26.99 Other pulmonary embolism without acute cor pulmonale (principal); Z79.01 Long term (current) use of anticoagulants; Z51.81 Encounter for therapeutic drug level monitoring | CPT/HCPCS: 85610; 99211 ==

== ENCOUNTER 2023-12-24 09:57 | Outpatient (AMB) | payer MEDICAID, SELFPAY ==
[2023-12-24 10:17] LABS: Prothrombin Time Whole Bld POC 30.9 sec (11.1-13.5); ~PT, ~INR - Anti Coag Clinic 2.6 (0.9-1.1)
--- NOTE | 2023-12-24 10:26 | MHC.OFFVISCO ---
Intake Intake Visit Reasons: Anticoagulation Allergies No Known Allergies Allergy (Mild, Verified 12/24/23 10:11) N/A Medication List - Last Reconciled 12/24/23 by Vicki Mcfadden RN acetaminophen ER (Tylenol 8 Hour) 650 mg PO Q8H PRN amoxicillin 2,000 mg PO kgfwhxf-jpyhkdxkqjbzt-gqdwgcbs 250-250-65 mg (Pain Reliever Plus) 0 tabs PO [calcium,magnesium,zinc and vitamin D3 1 tab PO DAILY] cetirizine 10 mg PO chlorhexidine gluconate 4% (Betasept Surgical Scrub) topical DAILY PRN trclwcud-msjyxw-qkcoliyq acid 500 mg-800 mcg- 50 mg (Collagen 1500 Plus C) 3 caps PO DAILY cyclobenzaprine 5 mg PO BEDTIME diphenhydramine HCl (Benadryl) 25 mg PO BEDTIME PRN diphenhydramine HCl (Banophen) 25 mg PO BEDTIME PRN famotidine 20 mg PO DAILY fluoxetine 10 mg PO QAM gemfibrozil 600 mg PO BID ketotifen fumarate 0.025%(0.035%) 1 drp ophthalmic (eye) BID lidocaine-prilocaine 2.5-2.5 % grams topical DAILY PRN methocarbamol 500 mg PO QID pantoprazole 20 mg PO DAILY trazodone 50 mg PO BEDTIME triamcinolone acetonide 0.5% topical BID warfarin 4 mg See Protocol PO DAILY Nursing Note INR: 2.6 in therapeutic range of 2-3 Medications and supplements reviewed: no changes No changes in health, diet, medications, or supplements, Pt to have a cavity filled on 12/29/23. Dentist requires INR check day before appt. Denies any signs and symptoms of bleeding or bruising or clotting. 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
== END 2023-12-24 10:34 | disposition home or self-care (01) ==
LOC: HO.ACS 09:57
PROVIDERS: PCP Student in an Organized Health Care Education/Training Program; Visit Provider Internal Medicine
DX: Z79.01 Long term (current) use of anticoagulants (principal)

== ENCOUNTER → 2023-12-24 09:57 | Outpatient (BNVA) | payer MEDICAID, SELFPAY | PROVIDERS: PCP Student in an Organized Health Care Education/Training Program; Visit Provider Internal Medicine | DX: I26.99 Other pulmonary embolism without acute cor pulmonale (principal); Z79.01 Long term (current) use of anticoagulants; Z51.81 Encounter for therapeutic drug level monitoring | CPT/HCPCS: 85610; 99211 ==

== ENCOUNTER 2023-12-28 10:05 | Outpatient (AMB) | payer MEDICAID, SELFPAY ==
[2023-12-28 10:14] LABS: Prothrombin Time Whole Bld POC 25.5 sec (11.1-13.5); ~PT, ~INR - Anti Coag Clinic 2.1 (0.9-1.1)
--- NOTE | 2023-12-28 10:23 | MHC.OFFVISCO ---
Intake Intake Visit Reasons: Anticoagulation Allergies No Known Allergies Allergy (Mild, Verified 12/28/23 10:09) N/A Medication List - Last Reconciled 12/28/23 by Vicki Mcfadden RN acetaminophen ER (Tylenol 8 Hour) 650 mg PO Q8H PRN amoxicillin 2,000 mg PO iobrqxj-kixjikydmpyew-noymvudk 250-250-65 mg (Pain Reliever Plus) 0 tabs PO [calcium,magnesium,zinc and vitamin D3 1 tab PO DAILY] cetirizine 10 mg PO chlorhexidine gluconate 4% (Betasept Surgical Scrub) topical DAILY PRN jlhbfeuz-nujhqg-bjlglgyj acid 500 mg-800 mcg- 50 mg (Collagen 1500 Plus C) 3 caps PO DAILY cyclobenzaprine 5 mg PO BEDTIME diphenhydramine HCl (Benadryl) 25 mg PO BEDTIME PRN diphenhydramine HCl (Banophen) 25 mg PO BEDTIME PRN famotidine 20 mg PO DAILY fluoxetine 10 mg PO QAM gemfibrozil 600 mg PO BID ketotifen fumarate 0.025%(0.035%) 1 drp ophthalmic (eye) BID lidocaine-prilocaine 2.5-2.5 % grams topical DAILY PRN methocarbamol 500 mg PO QID pantoprazole 20 mg PO DAILY trazodone 50 mg PO BEDTIME triamcinolone acetonide 0.5% topical BID warfarin 4 mg See Protocol PO DAILY Nursing Note INR: 2.1 in therapeutic range of 2-3 Pt to have cavity filled tomorrow4/10. Dentist requested INR the day before. Medications and supplements reviewed: no changes No changes in health, diet, medications, or supplements. Denies any signs and symptoms of bleeding or bruising or clotting. Bleeding, bruising, clotting discussed Nutritional guidance given to avoid foods from the red side today but after dental procedure to have foods from the red side if no bleeding complications R/T cavity/filling. 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
== END 2023-12-28 10:27 | disposition home or self-care (01) ==
LOC: HO.ACS 10:05
PROVIDERS: PCP Student in an Organized Health Care Education/Training Program; Visit Provider Internal Medicine
DX: Z79.01 Long term (current) use of anticoagulants (principal)

== ENCOUNTER → 2023-12-28 10:05 | Outpatient (BNVA) | payer MEDICAID, SELFPAY | PROVIDERS: PCP Student in an Organized Health Care Education/Training Program; Visit Provider Internal Medicine | DX: I26.99 Other pulmonary embolism without acute cor pulmonale (principal); Z79.01 Long term (current) use of anticoagulants; Z51.81 Encounter for therapeutic drug level monitoring | CPT/HCPCS: 85610; 99211 ==

== ENCOUNTER 2024-01-18 09:56 | Outpatient (AMB) | payer MEDICAID, SELFPAY ==
[2024-01-18 10:12] LABS: Prothrombin Time Whole Bld POC 19.8 sec (11.1-13.5); ~PT, ~INR - Anti Coag Clinic 1.6 (0.9-1.1)
--- NOTE | 2024-01-18 10:16 | MHC.OFFVISCO ---
Intake Intake Visit Reasons: Anticoagulation Allergies No Known Allergies Allergy (Mild, Verified 01/18/24 09:59) N/A Medication List - Last Reconciled 01/18/24 by Vicki Mcfadden RN acetaminophen ER (Tylenol 8 Hour) 650 mg PO Q8H PRN amoxicillin 2,000 mg PO gjesrai-yhnokmufqdndt-sfygaona 250-250-65 mg (Pain Reliever Plus) 0 tabs PO [calcium,magnesium,zinc and vitamin D3 1 tab PO DAILY] cetirizine 10 mg PO chlorhexidine gluconate 4% (Betasept Surgical Scrub) topical DAILY PRN ykoxmtqx-riamkd-agklfqjm acid 500 mg-800 mcg- 50 mg (Collagen 1500 Plus C) 3 caps PO DAILY cyclobenzaprine 5 mg PO BEDTIME diphenhydramine HCl (Benadryl) 25 mg PO BEDTIME PRN diphenhydramine HCl (Banophen) 25 mg PO BEDTIME PRN famotidine 20 mg PO DAILY fluoxetine 10 mg PO QAM gemfibrozil 600 mg PO BID ketotifen fumarate 0.025%(0.035%) 1 drp ophthalmic (eye) BID lidocaine-prilocaine 2.5-2.5 % grams topical DAILY PRN methocarbamol 500 mg PO QID pantoprazole 20 mg PO DAILY trazodone 50 mg PO BEDTIME triamcinolone acetonide 0.5% topical BID warfarin 4 mg See Protocol PO DAILY Nursing Note INR 1.6?out of therapeutic range of 2-3 Medications and supplements reviewed: no change Patient status: feels well Medications or supplements: no changes Diet: usual Denies any signs and symptoms of bleeding or clotting or unusual bruising Bleeding, bruising, clotting discussed Nutritional guidance given: to avoid greens the next 2 days and have a serving of foods from the reds list the next 2 days Dose: increase to 6mg (4mg) today and then usual dose of 4mg daily F/U INR Date : 02/01/24?? Patient verbalizing understanding of instructions given. Coding Level of Care Code Est Patient Level 1 Diagnoses Current use of anticoagulant therapy Z79.01 Results AMB INR Fingerstick AMB INR Fingerstick 1.6 Last Edit by Vicki Mcfadden RN on 01/18/24 10:06 interface delay Assessment & Plan Assessment & Plan (1) Current use of anticoagulant therapy: Code(s): Z79.01 - [facility] (current) use of anticoagulants Category: Medical
== END 2024-01-18 10:19 | disposition home or self-care (01) ==
LOC: HO.ACS 09:56
PROVIDERS: PCP Student in an Organized Health Care Education/Training Program; Visit Provider Internal Medicine
DX: Z79.01 Long term (current) use of anticoagulants (principal)

== ENCOUNTER → 2024-01-18 09:56 | Outpatient (BNVA) | payer MEDICAID, SELFPAY | PROVIDERS: PCP Student in an Organized Health Care Education/Training Program; Visit Provider Internal Medicine | DX: I26.99 Other pulmonary embolism without acute cor pulmonale (principal); Z51.81 Encounter for therapeutic drug level monitoring; Z79.01 Long term (current) use of anticoagulants | CPT/HCPCS: 85610; 99211 ==

== ENCOUNTER 2024-01-25 09:57 | Outpatient (AMB) | payer MEDICAID, SELFPAY ==
--- NOTE | 2024-01-25 10:04 | MHC.OFFVISCO ---
Intake Intake Visit Reasons: Anticoagulation Allergies No Known Allergies Allergy (Mild, Verified 01/25/24 10:00) N/A Medication List - Last Reconciled 01/25/24 by Halima Cortez RN acetaminophen ER (Tylenol 8 Hour) 650 mg PO Q8H PRN amoxicillin 2,000 mg PO fxeqsmi-nrcmqihlnybba-gjkhuzyr 250-250-65 mg (Pain Reliever Plus) 0 tabs PO [calcium,magnesium,zinc and vitamin D3 1 tab PO DAILY] cetirizine 10 mg PO chlorhexidine gluconate 4% (Betasept Surgical Scrub) topical DAILY PRN erqvazly-mmocro-nffdvoja acid 500 mg-800 mcg- 50 mg (Collagen 1500 Plus C) 3 caps PO DAILY cyclobenzaprine 5 mg PO BEDTIME diphenhydramine HCl (Benadryl) 25 mg PO BEDTIME PRN diphenhydramine HCl (Banophen) 25 mg PO BEDTIME PRN famotidine 20 mg PO DAILY fluoxetine 10 mg PO QAM gemfibrozil 600 mg PO BID ketotifen fumarate 0.025%(0.035%) 1 drp ophthalmic (eye) BID lidocaine-prilocaine 2.5-2.5 % grams topical DAILY PRN methocarbamol 500 mg PO QID pantoprazole 20 mg PO DAILY trazodone 50 mg PO BEDTIME triamcinolone acetonide 0.5% topical BID warfarin 4 mg See Protocol PO DAILY Nursing Note INR: 2.3- in therapeutic range of 2-3 Medications and supplements reviewed- no changes No changes in health, diet, medications, or supplements, Denies any signs and symptoms of bleeding or bruising or clotting. 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
[2024-01-25 10:05] LABS: ~PT, ~INR - Anti Coag Clinic 2.3 (0.9-1.1)
== END 2024-01-25 11:01 | disposition home or self-care (01) ==
LOC: HO.ACS 09:57
PROVIDERS: PCP Student in an Organized Health Care Education/Training Program; Visit Provider Internal Medicine
DX: Z79.01 Long term (current) use of anticoagulants (principal)

== ENCOUNTER → 2024-01-25 09:57 | Outpatient (BNVA) | payer MEDICAID, SELFPAY | PROVIDERS: PCP Student in an Organized Health Care Education/Training Program; Visit Provider Internal Medicine | DX: I26.99 Other pulmonary embolism without acute cor pulmonale (principal); Z51.81 Encounter for therapeutic drug level monitoring; Z79.01 Long term (current) use of anticoagulants | CPT/HCPCS: 85610; 99211 ==

== ENCOUNTER 2024-02-15 10:00 | Outpatient (AMB) | payer MEDICAID, SELFPAY ==
[2024-02-15 10:07] LABS: Prothrombin Time Whole Bld POC 34.3 sec (11.1-13.5); ~PT, ~INR - Anti Coag Clinic 2.9 (0.9-1.1)
--- NOTE | 2024-02-15 10:21 | MHC.OFFVISCO ---
Intake Intake Visit Reasons: Anticoagulation Allergies No Known Allergies Allergy (Mild, Verified 01/25/24 10:00) N/A Nursing Note INR: 2.9 in therapeutic range Medications and supplements reviewed pt has small amts of stephen seeds to assist with constipation, and now would like to add flax seeds for the omega 3 and other health benefits, both can raise the INR - she was enc to gradually add them to her diet and to increase greens with her diet while having them , - she is only going to sprinkle them on her foods denies any signs and symptoms of bleeding or bruising or clotting. Bleeding, bruising, clotting discussed Nutritional guidance given - eat a mix of fruits and vegetables- stephen and flax seeds can raise your INR - add more greens to your diet when eating them Dose: keep same for now 4mg daily F/U INR: 4 weeks Patient verbalizes understanding of instructions given Coding Level of Care Code Est Patient Level 1 Diagnoses Current use of anticoagulant therapy Z79.01 Assessment & Plan Assessment & Plan (1) Current use of anticoagulant therapy: Code(s): Z79.01 - group home (current) use of anticoagulants Category: Medical
== END 2024-02-15 10:25 | disposition home or self-care (01) ==
LOC: HO.ACS 10:00
PROVIDERS: PCP Student in an Organized Health Care Education/Training Program; Visit Provider Internal Medicine
DX: Z79.01 Long term (current) use of anticoagulants (principal)

== ENCOUNTER 2024-02-15 10:00 | Outpatient (REF) | payer MEDICAID, SELFPAY ==
[2024-02-15 11:44] LABS: Alanine Aminotransferase 12 U/L (0-31); Alkaline Phosphatase 93 U/L (39-117); Anion Gap 10 (12-20); Aspartate Amino Transferase 16 U/L (5-31); Bilirubin Direct < 0.2 mg/dL (0.0-0.5); Bilirubin Total 0.2 mg/dL (0.0-1.0); Blood Urea Nitrogen 12 mg/dL (9-16); Calcium 8.8 mg/dL (8.4-10.2); Carbon Dioxide 24 mmol/L (22-29); Chloride 110 mmol/L (96-108); Cholesterol 175 mg/dL (<200); Estimated Glomerular Filt Rate > 60; Glucose Random 82 mg/dL (60-115); HDL Cholesterol 63 mg/dL (>40); LDL Cholesterol Calculated 101 mg/dL (<100); Potassium 4.1 mmol/L (3.3-5.1); Sodium 140 mmol/L (135-145); Triglycerides 55 mg/dL (<150)
== END 2024-02-15 10:01 | disposition home or self-care (01) ==
LOC: HO.LAB 10:00
PROVIDERS: Absent Provider Student in an Organized Health Care Education/Training Program; PCP Student in an Organized Health Care Education/Training Program; Visit Provider Internal Medicine
DX: I26.99 Other pulmonary embolism without acute cor pulmonale (principal); I10 Essential (primary) hypertension; Z51.81 Encounter for therapeutic drug level monitoring; Z79.899 Other long term (current) drug therapy
CPT/HCPCS: 36415; 80048; 80061; 80076; 85610; 99211

== ENCOUNTER 2024-03-14 10:01 | Outpatient (AMB) | payer MEDICAID, SELFPAY ==
[2024-03-14 10:27] LABS: Prothrombin Time Whole Bld POC 31.7 sec (11.1-13.5); ~PT, ~INR - Anti Coag Clinic 2.6 (0.9-1.1)
--- NOTE | 2024-03-14 10:28 | MHC.OFFVISCO ---
Intake Intake Visit Reasons: Anticoagulation Allergies No Known Allergies Allergy (Mild, Verified 03/14/24 10:03) N/A Medication List - Last Reconciled 03/14/24 by Vicki Armendariz RN acetaminophen ER (Tylenol 8 Hour) 650 mg PO Q8H PRN ammonium lactate 12% 1 appl topical BID amoxicillin 2,000 mg PO hyfnsdk-lzxibbbgawujb-mxuchwim 250-250-65 mg (Pain Reliever Plus) 0 tabs PO [calcium,magnesium,zinc and vitamin D3 1 tab PO DAILY] cetirizine 10 mg PO chlorhexidine gluconate 4% (Betasept Surgical Scrub) topical DAILY PRN tmrmkjie-ccvxbs-isgittdb acid 500 mg-800 mcg- 50 mg (Collagen 1500 Plus C) 3 caps PO DAILY cyclobenzaprine 5 mg PO BEDTIME diphenhydramine HCl (Banophen) 25 mg PO BEDTIME PRN famotidine 20 mg PO DAILY fluoxetine 10 mg PO QAM fluticasone propionate 0.005% 1 appl topical DAILY gemfibrozil 600 mg PO BID ketotifen fumarate 0.025%(0.035%) 1 drp ophthalmic (eye) BID lidocaine-prilocaine 2.5-2.5 % grams topical DAILY PRN methocarbamol 500 mg PO QID pantoprazole 20 mg PO DAILY trazodone 50 mg PO BEDTIME triamcinolone acetonide 0.5% topical BID triamcinolone acetonide 0.025% 1 appl topical BID triamcinolone acetonide 0.025% 1 appl topical BID warfarin 4 mg See Protocol PO DAILY Nursing Note Amb to ACS using cane 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 Bleeding, bruising, clotting discussed INR 2.6 in therapeutic range Dose: continue usual dosing 4mg daily balance greens and reds in diet, be consistent F/U INR: 4 weeks, BRING IN UPDATED MEDICATION LIST Patient verbalizes understanding of instructions given Questionnaires HAS-BLED Does the patient had uncontrolled Hypertension?: No Does the patient have renal disease?: No Does the patient have liver disease?: No Does the patient have a history of stroke?: Yes Has the patient had major bleeding or predisposition to bleeding?: Yes Does the patient have labile INRs?: No Is the patient over 65 years of age?: No Is the patient on medications that gives them a predisposition to bleeding?: Yes Does the patient use alcohol?: No HAS-BLED Score: 3 CHADSVASC Age: <65 Gender: Female Does the patient have a history of CHF?: No Does the patient have a history of Hypertension?: Yes Does the patient have a history of Stroke/TIA/Thromboembolism?: Yes Does the patient have a history of Vascular Disease (prior OH, PAD or aortic plaque)?: No Does the patient have a history of Diabetes?: No CHADS VACS Score: 4 Jason Prediction Score Rsk VTE Active Cancer: No Previous VTE, excluding superficial vein thrombosis: Yes Reduced mobility: No Already known Thrombophilic Condition: Yes With-in last month Trauma and/or Surgery: No Elderly 70 year or older: No Heart and/or Respiratory Failure: No Acute Myocardial infarction and/or Ischemic Stroke: Yes Acute Infection and/or Rheumatologic Disorder: No Obesity (BMI 30 or greater): No Ongoing Hormonal Treatment: No Score: 7 Jason Score less than 4; Low Risk of VTE Jason Score 4 or greater; High Risk of VTE Coding Level of Care Code Est Patient Level 1 Diagnoses Current use of anticoagulant therapy Z79.01 Time Spent (min) 15 Assessment & Plan Assessment & Plan (1) Current use of anticoagulant therapy: Code(s): 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
== END 2024-03-14 11:00 | disposition home or self-care (01) ==
LOC: HO.ACS 10:01
PROVIDERS: PCP Student in an Organized Health Care Education/Training Program; Visit Provider Internal Medicine
DX: Z79.01 Long term (current) use of anticoagulants (principal)

== ENCOUNTER → 2024-03-14 10:01 | Outpatient (BNVA) | payer MEDICAID, SELFPAY | PROVIDERS: PCP Student in an Organized Health Care Education/Training Program; Visit Provider Internal Medicine | DX: I26.99 Other pulmonary embolism without acute cor pulmonale (principal); Z79.01 Long term (current) use of anticoagulants; Z51.81 Encounter for therapeutic drug level monitoring | CPT/HCPCS: 85610; 99211 ==

== ENCOUNTER 2024-04-11 10:07 | Outpatient (AMB) | payer MEDICAID, SELFPAY ==
--- NOTE | 2024-04-11 10:12 | MHC.OFFVISCO ---
Intake Intake Visit Reasons: Anticoagulation Allergies No Known Allergies Allergy (Mild, Verified 04/11/24 10:08) N/A Medication List - Last Reconciled 04/11/24 by Halima Cortez RN acetaminophen ER (Tylenol 8 Hour) 650 mg PO Q8H PRN ammonium lactate 12% 1 appl topical BID amoxicillin 2,000 mg PO hphlkfw-jbvqwpylfreta-mezkcjil 250-250-65 mg (Pain Reliever Plus) 0 tabs PO [calcium,magnesium,zinc and vitamin D3 1 tab PO DAILY] cetirizine 10 mg PO chlorhexidine gluconate 4% (Betasept Surgical Scrub) topical DAILY PRN mwjsvldm-blxmez-zakkrvqp acid 500 mg-800 mcg- 50 mg (Collagen 1500 Plus C) 3 caps PO DAILY cyclobenzaprine 5 mg PO BEDTIME diphenhydramine HCl (Banophen) 25 mg PO BEDTIME PRN famotidine 20 mg PO DAILY fluoxetine 10 mg PO QAM fluticasone propionate 0.005% 1 appl topical DAILY gemfibrozil 600 mg PO BID ketotifen fumarate 0.025%(0.035%) 1 drp ophthalmic (eye) BID lidocaine-prilocaine 2.5-2.5 % grams topical DAILY PRN methocarbamol 500 mg PO QID pantoprazole 20 mg PO DAILY trazodone 50 mg PO BEDTIME triamcinolone acetonide 0.5% topical BID triamcinolone acetonide 0.025% 1 appl topical BID triamcinolone acetonide 0.025% 1 appl topical BID warfarin 4 mg See Protocol PO DAILY Nursing Note INR: 3.0- in therapeutic range of 2-3 Medications and supplements reviewed- tylenol prn No changes in health, diet, medications, or supplements, Denies any signs and symptoms of bleeding or bruising or clotting. 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
[2024-04-11 10:13] LABS: Prothrombin Time Whole Bld POC 35.5 sec (11.1-13.5)
== END 2024-04-11 10:19 | disposition home or self-care (01) ==
LOC: HO.ACS 10:07
PROVIDERS: PCP Student in an Organized Health Care Education/Training Program; Visit Provider Internal Medicine
DX: Z79.01 Long term (current) use of anticoagulants (principal)

== ENCOUNTER → 2024-04-11 10:07 | Outpatient (BNVA) | payer MEDICAID, SELFPAY | PROVIDERS: PCP Student in an Organized Health Care Education/Training Program; Visit Provider Internal Medicine | DX: I26.99 Other pulmonary embolism without acute cor pulmonale (principal); Z79.01 Long term (current) use of anticoagulants; Z51.81 Encounter for therapeutic drug level monitoring | CPT/HCPCS: 85610; 99211 ==

== ENCOUNTER 2024-04-20 08:56 | Outpatient (REF) | payer MEDICAID, SELFPAY ==
--- NOTE | ~2024-04-20 | MM_ITS ---
EXAMINATION: MM SCREENING DIGITAL BREAST TOMOSYNTHESIS, BILATERAL CLINICAL INFORMATION: Screening. Asymptomatic. COMPARISON: Mammography: This study is compared with prior exams dating back to 2021. TECHNIQUE: Digital breast tomosynthesis is performed in both the craniocaudal and mediolateral oblique views along with computer-aided detection (CAD). Synthesized 2D images are generated from the tomosynthesis. FINDINGS: There are scattered areas of fibroglandular density (ACR BI-RADS breast composition Category b). There are no significant masses, abnormal calcifications, or other abnormalities. MM/MM tomosynthesis screening BI IMPRESSION: No mammographic evidence of malignancy. ASSESSMENT: BI-RADS BI-RADS 1 - Negative RECOMMENDATION: Routine annual mammography screening. 1 year F/U This examination should not preclude the clinical evaluation of a suspicious palpable abnormality. This patient's information was entered into a reminder system with a target due date for their next mammogram. Electronically signed by: Lacey Michelle MD 05/15/2024 02:24 AM EDT
== END 2024-04-20 08:57 | disposition home or self-care (01) ==
LOC: HO.MAMMO 08:56
PROVIDERS: PCP Student in an Organized Health Care Education/Training Program; Visit Provider Student in an Organized Health Care Education/Training Program
DX: Z12.31 Encounter for screening mammogram for malignant neoplasm of breast (principal)
CPT/HCPCS: 77063; 77067

== ENCOUNTER → 2024-04-20 09:45 | Outpatient (BNV) | payer MEDICAID, SELFPAY | PROVIDERS: PCP Student in an Organized Health Care Education/Training Program; Visit Provider Radiology Diagnostic Radiology | DX: Z12.31 Encounter for screening mammogram for malignant neoplasm of breast (principal) | CPT/HCPCS: 77063; 77067 ==

== ENCOUNTER 2024-05-11 10:00 | Outpatient (AMB) | payer MEDICAID, SELFPAY ==
[2024-05-11 10:08] LABS: Prothrombin Time Whole Bld POC 32.3 sec (11.1-13.5); ~PT, ~INR - Anti Coag Clinic 2.7 (0.9-1.1)
--- NOTE | 2024-05-11 10:12 | MHC.OFFVISCO ---
Intake Intake Visit Reasons: Anticoagulation Allergies No Known Allergies Allergy (Mild, Verified 05/11/24 10:02) N/A Medication List - Last Reconciled 05/11/24 by Vicki Mcfadden, MESERET acetaminophen ER (Tylenol 8 Hour) 650 mg PO Q8H PRN ammonium lactate 12% 1 appl topical BID amoxicillin 2,000 mg PO sayhdpk-akhbuskuvfxpa-qcdihdzs 250-250-65 mg (Pain Reliever Plus) 0 tabs PO [calcium,magnesium,zinc and vitamin D3 1 tab PO DAILY] cetirizine 10 mg PO chlorhexidine gluconate 4% (Betasept Surgical Scrub) topical DAILY PRN ivaepcdc-qaeqxy-bynresuh acid 500 mg-800 mcg- 50 mg (Collagen 1500 Plus C) 3 caps PO DAILY cyclobenzaprine 5 mg PO BEDTIME diphenhydramine HCl (Banophen) 25 mg PO BEDTIME PRN famotidine 20 mg PO DAILY fluoxetine 10 mg PO QAM fluticasone propionate 0.005% 1 appl topical DAILY gemfibrozil 600 mg PO BID ketotifen fumarate 0.025%(0.035%) 1 drp ophthalmic (eye) BID lidocaine-prilocaine 2.5-2.5 % grams topical DAILY PRN methocarbamol 500 mg PO QID pantoprazole 20 mg PO DAILY trazodone 50 mg PO BEDTIME triamcinolone acetonide 0.5% topical BID triamcinolone acetonide 0.025% 1 appl topical BID triamcinolone acetonide 0.025% 1 appl topical BID warfarin 4 mg See Protocol PO DAILY Nursing Note INR: 2.7 in therapeutic range of 2-3 Medications and supplements reviewed No changes in health, diet, medications, or supplements, Denies any signs and symptoms of bleeding or bruising or clotting. 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
== END 2024-05-11 10:15 | disposition home or self-care (01) ==
LOC: HO.ACS 10:00
PROVIDERS: PCP Student in an Organized Health Care Education/Training Program; Visit Provider Internal Medicine
DX: Z79.01 Long term (current) use of anticoagulants (principal)

== ENCOUNTER → 2024-05-11 10:00 | Outpatient (BNVA) | payer MEDICAID, SELFPAY | PROVIDERS: PCP Student in an Organized Health Care Education/Training Program; Visit Provider Internal Medicine | DX: I26.99 Other pulmonary embolism without acute cor pulmonale (principal); Z79.01 Long term (current) use of anticoagulants; Z51.81 Encounter for therapeutic drug level monitoring | CPT/HCPCS: 85610; 99211 ==

== ENCOUNTER 2024-06-08 10:16 | Outpatient (AMB) | payer MEDICAID, SELFPAY ==
--- NOTE | 2024-06-08 10:12 | MHC.OFFVISCO ---
Intake Intake Visit Reasons: Anticoagulation Allergies No Known Allergies Allergy (Mild, Verified 05/11/24 10:02) N/A Medication List - Last Reconciled 06/08/24 by Vicki Mcfadden RN acetaminophen ER (Tylenol 8 Hour) 650 mg PO Q8H PRN ammonium lactate 12% 1 appl topical BID amoxicillin 2,000 mg PO obwibpc-vclxgalzlwlgk-mhpshqxq 250-250-65 mg (Pain Reliever Plus) 0 tabs PO [calcium,magnesium,zinc and vitamin D3 1 tab PO DAILY] cetirizine 10 mg PO chlorhexidine gluconate 4% (Betasept Surgical Scrub) topical DAILY PRN gzajadnz-gkjhgn-wmpvocyf acid 500 mg-800 mcg- 50 mg (Collagen 1500 Plus C) 3 caps PO DAILY cyclobenzaprine 5 mg PO BEDTIME diphenhydramine HCl (Banophen) 25 mg PO BEDTIME PRN famotidine 20 mg PO DAILY fluoxetine 10 mg PO QAM fluticasone propionate 0.005% 1 appl topical DAILY gemfibrozil 600 mg PO BID ketotifen fumarate 0.025%(0.035%) 1 drp ophthalmic (eye) BID lidocaine-prilocaine 2.5-2.5 % grams topical DAILY PRN methocarbamol 500 mg PO QID pantoprazole 20 mg PO DAILY trazodone 50 mg PO BEDTIME triamcinolone acetonide 0.5% topical BID triamcinolone acetonide 0.025% 1 appl topical BID triamcinolone acetonide 0.025% 1 appl topical BID warfarin 4 mg See Protocol PO DAILY Nursing Note Pt to ACS with use of cane 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
[2024-06-09 08:45] LABS: Prothrombin Time Whole Bld POC 22.7 sec (11.1-13.5); ~PT, ~INR - Anti Coag Clinic 1.9 (0.9-1.1)
== END 2024-06-08 10:17 | disposition home or self-care (01) ==
LOC: HO.ACS 10:16
PROVIDERS: PCP Student in an Organized Health Care Education/Training Program; Visit Provider Internal Medicine
DX: Z79.01 Long term (current) use of anticoagulants (principal)

== ENCOUNTER → 2024-06-08 10:16 | Outpatient (BNVA) | payer MEDICAID, SELFPAY | PROVIDERS: PCP Student in an Organized Health Care Education/Training Program; Visit Provider Internal Medicine | DX: I26.99 Other pulmonary embolism without acute cor pulmonale (principal); Z79.01 Long term (current) use of anticoagulants; Z51.81 Encounter for therapeutic drug level monitoring | CPT/HCPCS: 85610; 99211 ==

== ENCOUNTER 2024-06-15 09:58 | Outpatient (AMB) | payer MEDICAID, SELFPAY ==
[2024-06-15 10:08] LABS: Prothrombin Time Whole Bld POC 31.1 sec (11.1-13.5); ~PT, ~INR - Anti Coag Clinic 2.6 (0.9-1.1)
--- NOTE | 2024-06-15 10:16 | MHC.OFFVISCO ---
Intake Intake Visit Reasons: Anticoagulation Allergies No Known Allergies Allergy (Mild, Verified 06/15/24 10:03) N/A Medication List - Last Reconciled 06/15/24 by Vicki Mcfadden RN acetaminophen ER (Tylenol 8 Hour) 650 mg PO Q8H PRN ammonium lactate 12% 1 appl topical BID amoxicillin 2,000 mg PO xdycssr-noalfznilvico-sclbgkah 250-250-65 mg (Pain Reliever Plus) 0 tabs PO [calcium,magnesium,zinc and vitamin D3 1 tab PO DAILY] cetirizine 10 mg PO chlorhexidine gluconate 4% (Betasept Surgical Scrub) topical DAILY PRN amsdzmwg-siuxyl-beyincgh acid 500 mg-800 mcg- 50 mg (Collagen 1500 Plus C) 3 caps PO DAILY cyclobenzaprine 5 mg PO BEDTIME diphenhydramine HCl (Banophen) 25 mg PO BEDTIME PRN famotidine 20 mg PO DAILY fluoxetine 10 mg PO QAM fluticasone propionate 0.005% 1 appl topical DAILY gemfibrozil 600 mg PO BID ketotifen fumarate 0.025%(0.035%) 1 drp ophthalmic (eye) BID lidocaine-prilocaine 2.5-2.5 % grams topical DAILY PRN methocarbamol 500 mg PO QID pantoprazole 20 mg PO DAILY trazodone 50 mg PO BEDTIME triamcinolone acetonide 0.5% topical BID triamcinolone acetonide 0.025% 1 appl topical BID triamcinolone acetonide 0.025% 1 appl topical BID warfarin 4 mg See Protocol PO DAILY Nursing Note INR: 2.6 in therapeutic range of 2-3 Medications and supplements reviewed No changes in health, diet, medications, or supplements, Denies any signs and symptoms of bleeding or bruising or clotting. 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
== END 2024-06-15 10:17 | disposition home or self-care (01) ==
LOC: HO.ACS 09:58
PROVIDERS: PCP Student in an Organized Health Care Education/Training Program; Visit Provider Internal Medicine
DX: Z79.01 Long term (current) use of anticoagulants (principal)

== ENCOUNTER → 2024-06-15 09:58 | Outpatient (BNVA) | payer MEDICAID, SELFPAY | PROVIDERS: PCP Student in an Organized Health Care Education/Training Program; Visit Provider Internal Medicine | DX: I26.99 Other pulmonary embolism without acute cor pulmonale (principal); Z79.01 Long term (current) use of anticoagulants; Z51.81 Encounter for therapeutic drug level monitoring | CPT/HCPCS: 85610; 99211 ==

== ENCOUNTER 2024-07-06 09:49 | Outpatient (AMB) | payer MEDICAID, SELFPAY ==
[2024-07-06 10:03] LABS: Prothrombin Time Whole Bld POC 28.8 sec (11.1-13.5); ~PT, ~INR - Anti Coag Clinic 2.4 (0.9-1.1)
--- NOTE | 2024-07-06 10:18 | MHC.OFFVISCO ---
Intake Intake Visit Reasons: Anticoagulation Allergies No Known Allergies Allergy (Mild, Verified 07/06/24 09:50) N/A Medication List - Last Reconciled 07/06/24 by Vicki Mcfadden RN acetaminophen ER (Tylenol 8 Hour) 650 mg PO Q8H PRN ammonium lactate 12% 1 appl topical BID amoxicillin 2,000 mg PO edsxpnt-jlyrrgehavvdw-giotziwb 250-250-65 mg (Pain Reliever Plus) 0 tabs PO [calcium,magnesium,zinc and vitamin D3 1 tab PO DAILY] cetirizine 10 mg PO chlorhexidine gluconate 4% (Betasept Surgical Scrub) topical DAILY PRN vqxomzfk-pvacou-njwafotl acid 500 mg-800 mcg- 50 mg (Collagen 1500 Plus C) 3 caps PO DAILY cyclobenzaprine 5 mg PO BEDTIME diphenhydramine HCl (Banophen) 25 mg PO BEDTIME PRN famotidine 20 mg PO DAILY fluoxetine 10 mg PO QAM fluticasone propionate 0.005% 1 appl topical DAILY gemfibrozil 600 mg PO BID ketotifen fumarate 0.025%(0.035%) 1 drp ophthalmic (eye) BID lidocaine-prilocaine 2.5-2.5 % grams topical DAILY PRN methocarbamol 500 mg PO QID pantoprazole 20 mg PO DAILY trazodone 50 mg PO BEDTIME triamcinolone acetonide 0.5% topical BID triamcinolone acetonide 0.025% 1 appl topical BID triamcinolone acetonide 0.025% 1 appl topical BID warfarin 4 mg See Protocol PO DAILY Nursing Note INR: 2.4 in therapeutic range of 2-3 Medications and supplements reviewed No changes in health, diet, medications, or supplements, Denies any signs and symptoms of bleeding or bruising or clotting. Bleeding, bruising, clotting discussed Nutritional guidance given Dose: keep same dose of 4mg daily F/U INR: 4 weeks Patient verbalizes understanding of instructions given Coding Level of Care Code Est Patient Level 1 Diagnoses Current use of anticoagulant therapy Z79.01 Results AMB INR Fingerstick AMB INR Fingerstick 2.4 Last Edit by Vicki Mcfadden RN on 07/06/24 09:55 interface delay Assessment & Plan Assessment & Plan (1) Current use of anticoagulant therapy: Code(s): Z79.01 - snf (current) use of anticoagulants Category: Medical
== END 2024-07-06 10:19 | disposition home or self-care (01) ==
LOC: HO.ACS 09:49
PROVIDERS: PCP Student in an Organized Health Care Education/Training Program; Visit Provider Internal Medicine
DX: Z79.01 Long term (current) use of anticoagulants (principal)

== ENCOUNTER → 2024-07-06 09:49 | Outpatient (BNVA) | payer MEDICAID, SELFPAY | PROVIDERS: PCP Student in an Organized Health Care Education/Training Program; Visit Provider Internal Medicine | DX: I26.99 Other pulmonary embolism without acute cor pulmonale (principal); Z79.01 Long term (current) use of anticoagulants; Z51.81 Encounter for therapeutic drug level monitoring | CPT/HCPCS: 85610; 99211 ==

== ENCOUNTER 2024-08-03 09:54 | Outpatient (AMB) | payer MEDICAID, SELFPAY ==
[2024-08-03 10:10] LABS: Prothrombin Time Whole Bld POC 38.5 sec (11.1-13.5); ~PT, ~INR - Anti Coag Clinic 3.2 (0.9-1.1)
--- NOTE | 2024-08-03 10:18 | MHC.OFFVISCO ---
Intake Intake Visit Reasons: Anticoagulation Allergies No Known Allergies Allergy (Mild, Verified 08/03/24 10:02) N/A Medication List - Last Reconciled 08/03/24 by Prudence Maya RN acetaminophen ER (Tylenol 8 Hour) 650 mg PO Q8H PRN ammonium lactate 12% 1 appl topical BID bpxigec-usaopeszicnqo-sjqkgewg 250-250-65 mg (Pain Reliever Plus) 0 tabs PO [calcium,magnesium,zinc and vitamin D3 1 tab PO DAILY] cetirizine 10 mg PO chlorhexidine gluconate 4% (Betasept Surgical Scrub) topical DAILY PRN tqkjlnsn-twquxm-eeehmcsp acid 500 mg-800 mcg- 50 mg (Collagen 1500 Plus C) 3 caps PO DAILY cyclobenzaprine 5 mg PO BEDTIME diphenhydramine HCl (Banophen) 25 mg PO BEDTIME PRN famotidine 20 mg PO DAILY fluoxetine 10 mg PO QAM fluticasone propionate 0.005% 1 appl topical DAILY gemfibrozil 600 mg PO BID ketotifen fumarate 0.025%(0.035%) 1 drp ophthalmic (eye) BID lidocaine-prilocaine 2.5-2.5 % grams topical DAILY PRN methocarbamol 500 mg PO QID pantoprazole 20 mg PO DAILY trazodone 50 mg PO BEDTIME PRN triamcinolone acetonide 0.5% topical BID triamcinolone acetonide 0.025% 1 appl topical BID triamcinolone acetonide 0.025% 1 appl topical BID warfarin 4 mg See Protocol PO DAILY Nursing Note INR 3.2 out of therapeutic range Medications and supplements reviewed Patient status: Took tylenol recently for ack pain , and has not had usual greens Medications or supplements: no changes Diet: good Denies any signs and symptoms of bleeding or clotting or unusual bruising Bleeding, bruising, clotting discussed Nutritional guidance given: review food list for the holidays and increase greens when taking more tylenol Dose: keep same dose 4mg daily F/U INR Date : 1 month ?? Patient verbalizing understanding of instructions given. Coding Level of Care Code Est Patient Level 1 Diagnoses Current use of anticoagulant therapy Z79.01 Results AMB INR Fingerstick AMB INR Fingerstick 3.2 Last Edit by Prudence Maya RN on 08/03/24 10:13 MANUAL ENTRY Assessment & Plan Assessment & Plan (1) Current use of anticoagulant therapy: Code(s): Z79.01 - long-term (current) use of anticoagulants Category: Medical
== END 2024-08-03 10:20 | disposition home or self-care (01) ==
LOC: HO.ACS 09:54
PROVIDERS: PCP Student in an Organized Health Care Education/Training Program; Visit Provider Internal Medicine
DX: Z79.01 Long term (current) use of anticoagulants (principal)

== ENCOUNTER → 2024-08-03 09:54 | Outpatient (BNVA) | payer MEDICAID, SELFPAY | PROVIDERS: PCP Student in an Organized Health Care Education/Training Program; Visit Provider Internal Medicine | DX: I26.99 Other pulmonary embolism without acute cor pulmonale (principal); Z79.01 Long term (current) use of anticoagulants; Z51.81 Encounter for therapeutic drug level monitoring | CPT/HCPCS: 85610; 99211 ==

== ENCOUNTER 2024-08-31 09:57 | Outpatient (AMB) | payer MEDICAID, SELFPAY ==
--- NOTE | 2024-08-31 10:15 | MHC.OFFVISCO ---
Intake Intake Visit Reasons: Anticoagulation Allergies No Known Allergies Allergy (Mild, Verified 08/31/24 10:08) N/A Medication List - Last Reconciled 08/31/24 by Halima Cortez RN acetaminophen ER (Tylenol 8 Hour) 650 mg PO Q8H PRN ammonium lactate 12% 1 appl topical BID ycpocjp-sgxywxbpmgkkv-qogzdrjd 250-250-65 mg (Pain Reliever Plus) 0 tabs PO [calcium,magnesium,zinc and vitamin D3 1 tab PO DAILY] cetirizine 10 mg PO chlorhexidine gluconate 4% (Betasept Surgical Scrub) topical DAILY PRN gynikrpf-bxmkxf-kahoxdac acid 500 mg-800 mcg- 50 mg (Collagen 1500 Plus C) 3 caps PO DAILY cyclobenzaprine 5 mg PO BEDTIME diphenhydramine HCl (Banophen) 25 mg PO BEDTIME PRN famotidine 20 mg PO DAILY fluoxetine 10 mg PO QAM fluticasone propionate 0.005% 1 appl topical DAILY gemfibrozil 600 mg PO BID ketotifen fumarate 0.025%(0.035%) 1 drp ophthalmic (eye) BID lidocaine-prilocaine 2.5-2.5 % grams topical DAILY PRN methocarbamol 500 mg PO QID pantoprazole 20 mg PO DAILY trazodone 50 mg PO BEDTIME PRN triamcinolone acetonide 0.025% 1 appl topical BID triamcinolone acetonide 0.025% 1 appl topical BID warfarin 4 mg See Protocol PO DAILY Nursing Note INR: 3.0- in therapeutic range of 2-3 Medications and supplements reviewed No changes in health, diet, medications, or supplements, Denies any signs and symptoms of bleeding or bruising or clotting. Bleeding, bruising, clotting discussed Nutritional guidance given - eat a green today Dose: 4mg x 7 F/U INR: 4 weeks Patient verbalizes understanding of instructions given Coding Level of Care Code Est Patient Level 1 Diagnoses Current use of anticoagulant therapy Z79.01 Assessment & Plan Assessment & Plan (1) Current use of anticoagulant therapy: Code(s): Z79.01 - group home (current) use of anticoagulants Category: Medical
[2024-08-31 10:16] LABS: Prothrombin Time Whole Bld POC 36.5 sec (11.1-13.5)
== END 2024-08-31 10:22 | disposition home or self-care (01) ==
LOC: HO.ACS 09:57
PROVIDERS: PCP Student in an Organized Health Care Education/Training Program; Visit Provider Internal Medicine
DX: Z79.01 Long term (current) use of anticoagulants (principal)

== ENCOUNTER → 2024-08-31 09:57 | Outpatient (BNVA) | payer MEDICAID, SELFPAY | PROVIDERS: PCP Student in an Organized Health Care Education/Training Program; Visit Provider Internal Medicine | DX: I26.99 Other pulmonary embolism without acute cor pulmonale (principal); Z79.01 Long term (current) use of anticoagulants; Z51.81 Encounter for therapeutic drug level monitoring | CPT/HCPCS: 85610; 99211 ==

== ENCOUNTER 2024-09-28 10:01 | Outpatient (AMB) | payer MEDICAID, SELFPAY ==
--- NOTE | 2024-09-28 10:29 | MHC.OFFVISCO ---
Intake Intake Visit Reasons: Anticoagulation Allergies No Known Allergies Allergy (Mild, Verified 09/28/24 10:16) N/A Medication List - Last Reconciled 09/28/24 by Prudence Maya RN acetaminophen ER (Tylenol 8 Hour) 650 mg PO Q8H PRN ammonium lactate 12% 1 appl topical BID ztrpbmx-sqnggkgtbxjdl-mgjpynpz 250-250-65 mg (Pain Reliever Plus) 0 tabs PO [calcium,magnesium,zinc and vitamin D3 1 tab PO DAILY] cetirizine 10 mg PO chlorhexidine gluconate 4% (Betasept Surgical Scrub) topical DAILY PRN cahhbgog-pzlqaf-xggcmyvs acid 500 mg-800 mcg- 50 mg (Collagen 1500 Plus C) 3 caps PO DAILY cyclobenzaprine 5 mg PO BEDTIME diphenhydramine HCl (Banophen) 25 mg PO BEDTIME PRN famotidine 20 mg PO DAILY fluoxetine 10 mg PO QAM fluticasone propionate 0.005% 1 appl topical DAILY gemfibrozil 600 mg PO BID ketotifen fumarate 0.025%(0.035%) 1 drp ophthalmic (eye) BID lidocaine-prilocaine 2.5-2.5 % grams topical DAILY PRN methocarbamol 500 mg PO QID pantoprazole 20 mg PO DAILY trazodone 50 mg PO BEDTIME PRN triamcinolone acetonide 0.025% 1 appl topical BID triamcinolone acetonide 0.025% 1 appl topical BID warfarin 4 mg See Protocol PO DAILY Nursing Note INR: 3.0 in therapeutic range Medications and supplements reviewed No changes in health, diet, medications, or supplements, Denies any signs and symptoms of bleeding or bruising or clotting. 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
[2024-09-28 10:56] LABS: Prothrombin Time Whole Bld POC 35.7 sec (11.1-13.5)
== END 2024-09-28 10:34 | disposition home or self-care (01) ==
LOC: HO.ACS 10:01
PROVIDERS: PCP Student in an Organized Health Care Education/Training Program; Visit Provider Internal Medicine
DX: Z79.01 Long term (current) use of anticoagulants (principal)

== ENCOUNTER → 2024-09-28 10:01 | Outpatient (BNVA) | payer MEDICAID, SELFPAY | PROVIDERS: PCP Student in an Organized Health Care Education/Training Program; Visit Provider Internal Medicine | DX: I26.99 Other pulmonary embolism without acute cor pulmonale (principal); Z79.01 Long term (current) use of anticoagulants; Z51.81 Encounter for therapeutic drug level monitoring | CPT/HCPCS: 85610; 99211 ==

== ENCOUNTER 2024-10-13 10:38 | Outpatient (REF) | payer MEDICAID, SELFPAY ==
--- NOTE | ~2024-10-13 | XR_ITS ---
EXAMINATION: XR LUMBOSACRAL SPINE CLINICAL INFORMATION: acute on chornic right back pain , right-sided low back pain x3 days with sciatica. No injury. COMPARISON: None available. TECHNIQUE: Three views of the lumbosacral spine. FINDINGS: Normal lordosis. No scoliosis. No fractures, compression deformities, subluxations, or suspicious focal bony abnormalities. Severe disc space degeneration L5-S1 with mild sclerosis of the endplates. Disc spaces superior to L5 otherwise demonstrate mild degeneration . Associated hypertrophic facet degeneration spanning L4-S1. Soft tissues demonstrate vascular calcifications. There are cholecystectomy clips. XR/XR lumbar spine 2-3V IMPRESSION: 1. No acute findings of the lumbar spine. 2. Degenerative changes as discussed. Electronically signed by: Burke Jeffers MD 10/13/2024 11:33 AM [facility]IELENA NEGRO
--- OUTSIDE RECORDS SUMMARY | 2024-10-13 12:09 | XMS_ITS | Encounter Summary ---
Author Organization [employer] Address [address] [facility] 7t [place] [address] Care Team Providers Care Supervisor Sound Technician Name Role Phone Heena Abbasi MD Primary Care Provider [phone] Reason for Visit * Reason Onset Date Comments Nurse Triage 07/12/2024 Encounter Details Date Type Department Care Team ([facility] st Contact Info) Description 07/12/2024 Telephone [facility] MEDICINE [address] [place] [address] Heena Abbasi MD [address] [place], [place] [id number] Nurse Triage Social History Tobacco Use Types Packs/Day Years Used Date Smoking Tobacco: Former Cigarettes Passive Smoke Exposure: Past Smokeless Tobacco: Never Depression Answer Date Recorded Patient Health Questionnaire-9 Score 5 12/31/2023 Patient Health Questionnaire-9 Score 5 12/31/2023 Last PHQ-9: Questionnaire Data Not on file 0 12/31/2023 Housing Stability Answer Date Recorded What is your housing situation today? I have phyllis vicente 12/21/[address] you li ve. Do you have problems with any of the following? None of the above 12/21/2023 Food Insecurity Answer Date Recorded Within the past 12 months, y ou worried that your food would run out before you got money to buy more: Never True 12/21/2023 Within the past 12 months,th e food you bought just didn't last and you didn't have enough money to get more: Never True 10/2023 Transportation Answer Date Recorded In the past 12 months, has l ack of transportation kept you from medical appts, meetings, work or from getting things needed for daily living? No 12/21/2023 Utilities Answer Date Recorded In the past 12 months, has t he electric, gas, oil or water company threatened to shut off services in your home? No 12/21/2023 Depression Answer Date Recorded Patient Health Questionnaire-2 Score 2 12/31/2023 Comments No Sex and Gender Information Value Date Recorded Sex Assigned at Female 07/20/2022 10:15 AM EDT Legal Sex Female 10:15 AM EDT Gender Identity Female 07/20/2022 10:15 AM EDT Sexual Orientation Straight 07/20/2022 10 :15 AM EDT documented as of this encounter Miscellaneous Notes * Telephone Encounter - Clara Cruz RN - 07/12/2024 12:29 PM EDT [place] [id number] Pt reports woke up with both eyes , crusty yellow exudate. Pt denies swelling, redness and sclera remains white. Pt reports mod amount of drainage and some itchiness. Pt is offered [facility] apt today but,declines would like to be seen tomorrow. Pt is advised to be seen in [facility] open till 8pm today, tomorrow 07/13/24 830am-400pm. Pt agrees with this plan and disposition. Insurance is verified as active . Protocol Used: Eye - Pus or Discharge (Adult) Protocol-Based Disposition: Callback or Video Visit by PCP Today Video visit not offered Positive Triage Question: * Bacterial conjunctivitis suspected (e.g., white, yellow or green discharge nearly all day long; or eyelids stuck shut from discharge after sleep), but NO doctor standing order to call in antibioticeye drops (Exception: Betty; continue triage.) * All higher-acuity triage questions were negative Care Advice Discussed: * Reassurance and Education - Probable Bacterial Conjunctivitis * Keep Your Eyelids Clean * Reasons To Call Back - Pus lasts over 3 days (72 hours) on treatment - Blurred vision occurs - Light bothers your eyes - More than just mild eye discomfort - You become worse * Telephone Encounter - Connie Wheeler - 07/12/2024 11:24 AM EDT Symptom: Eye - Pus or Discharge Outcome: Schedule a same-day appointment or talk to a nurse or provider today Reason: Caller denied all higher acuity questions The caller accepted this outcome. Please contact at [phone] Albanian documented in this encounter Plan of Treatment Upcoming Encounters Date Type Department Care Team (Late st Contact Info) Description 10/31/2024 10:30 AM EST Office Visit [facility] OPTOMETRY [address] [place] [address] TarkaAllegra, OD [address] [place] [address] 11/02/2024 9:00 AM EST Office Visit [facility] CHC ADULT DENTAL [address] [place] [address] Karen Shea documented as of this encounter Visit Diagnoses Not on filedocumented in this encounter Additional Health Concerns Assessment Noted Time PHQ-9 Depression Total Score: 5 12/31/19 24 10:57 AM EDT documented as of this encounter Care Teams Supervisor Sound Technician Relationship Specialty Start Date End Date Heena Abbasi MD [address] [place] [phone] PCP - General Family Medicine 09/05/12 Eli Higuera Sound PersonShearer Printed Circuit Boards 03/17/24 documented as of this encounter
--- OUTSIDE RECORDS SUMMARY | 2024-10-13 12:09 | XMS_ITS | Encounter Summary ---
Author Organization [employer] Address [address] [facility] 7t [place] [address] Care Team Providers Care Deaf Interpreter Name Role Phone Heena Abbasi MD Primary Care Provider [phone] Reason for Visit * Reason Onset Date Comments Med Refill 12/30/2022 Encounter Details Date Type Department Care Team (Late st Contact Info) Description 12/30/2022 Telephone [facility] MEDICINE [address] [place] [address] Heena Abbasi MD [address] [place] [address] Med Refill Social History Tobacco Use Types Packs/Day Years Used Date Smoking Tobacco: Former Cigarettes Smokeless Tobacco: Never Comments Unknown Sex and Gender Information Value Date Recorded Sex Assigned at Female 07/20/2022 10:15 AM EDT Legal Sex Female 10:15 AM EDT Gender Identity Female 07/20/2022 10:15 AM EDT Sexual Orientation Straight 07/20/2022 10 :15 AM EDT documented as of this encounter Miscellaneous Notes * Telephone Encounter - Tiana Olvera RN - 12/30/2022 12:39 PM EDT Pt managed [facility]. Noted INR of 3.0 on 12/25/22. Will forward request for warfarin refill to PCP to review. * Telephone Encounter - Kemar Davis - 12/30/2022 10:08 AM EDT Tc from pt requesting med refill Warfarin 4 mg Banophen 25 mg documented in this encounter Plan of Treatment Upcoming Encounters Date Type Department Care Team (Late st Contact Info) Description 10/31/2024 10:30 AM EST Office Visit [facility] OPTOMETRY [address] [place] [address] Allegra Escobedo, OD [address] [place] [address] 11/02/2024 9:00 AM EST Office Visit [facility] CHC ADULT DENTAL [address] [place] [address] Karen Shea documented as of this encounter Visit Diagnoses Not on filedocumented in this encounter Care Teams Deaf Interpreter Relationship Specialty Start Date End Date Heena Abbasi MD [address] [place] [address] PCP - General Family Medicine 09/05/12 Eli Higuera Quality Assurance CoachTrip Rider 03/17/24 Eli Higuera Quality Assurance CoachTrip Rider 10/05/24 documented as of this encounter
--- OUTSIDE RECORDS SUMMARY | 2024-10-13 12:09 | XMS_ITS | Encounter Summary ---
Author Organization [employer] Address [address] [facility] 7t [place] [address] Care Team Providers Care Web Programmer Name Role Phone Heena Abbasi MD Primary Care Provider [phone] Encounter Details Date Type Department Care Team (Late st Contact Info) Description 12/31/2023 Orders Only [facility] CHC MED & PEDS [address] [place], [place] [phone] Heena Abbasi MD [address] [place], [place] [phone] Social History Tobacco Use Types Packs/Day Years [...] AM EDT documented as of this encounter Plan of Treatment Upcoming Encounters Date Type Department Care Team (Late st Contact Info) Description 10/31/2024 10:30 AM EST Office Visit [facility] OPTOMETRY [address] [place] [address] Allegra Escobedo, OD [address] [place] [address] 11/02/2024 9:00 AM EST Office Visit [facility] CHC ADULT DENTAL [address] [place] [address] Karen Shea documented as of this encounter Visit Diagnoses Not on filedocumented in this encounter Additional Health Concerns Assessment Noted Time PHQ-9 Depression Total Score: 5 12/31/19 24 10:57 AM EDT documented as of this encounter Care Teams Web Programmer Relationship Specialty Start Date End Date Heena Abbasi MD [address] [place] [phone] PCP - General Family Medicine 09/05/12 Eli Higuera Water Softener ServicerNarrow Fabrics Weaver 03/17/24 Eli Higuera Water Softener ServicerNarrow Fabrics Weaver 10/05/24 documented as of this encounter
--- OUTSIDE RECORDS SUMMARY | 2024-10-13 12:09 | XMS_ITS | Encounter Summary ---
Author Organization [employer] Address [address] [facility] 7t [place] [address] Care Team Providers Care Insurance Business Analyst Name Role Phone Heena Abbasi MD Primary Care Provider Encounter Details Date Type Department Care Team (Late st Contact Info) Description 09/10/2022 Orders Only [facility] [address] [place], [place] [phone] Tierra Ashby LPN Social History Tobacco Use Types Packs/Day Years Used Date Smoking Tobacco: Never Assessed Comments Unknown Sex and Gender Information Value Date Recorded Sex Assigned at Female 07/20/2022 10:15 AM EDT Legal Sex Female 10:15 AM EDT Gender Identity Female 07/20/2022 10:15 AM EDT Sexual Orientation Straight 07/20/2022 10 :15 AM EDT COVID-19 Exposure Response Date Recorded In the last 10 days, have yo u been in contact with someone who was confirmed or suspected to have Coronavirus/COVID-19? No / Unsure 09/11/2022 10:48 AM EST documented as of this encounter Plan of Treatment Upcoming Encounters Date Type Department Care Team (Late st Contact Info) Description 10/31/2024 10:30 AM EST Office Visit [facility] OPTOMETRY [address] [place], [place] [phone] TarAllegra johnson, OD [address] [place], [place] [phone] 11/02/2024 9:00 AM EST Office Visit [facility] CHC ADULT DENTAL [address] [place] [address] Karen Shea documented as of this encounter Visit Diagnoses Not on filedocumented in this encounter Care Teams Insurance Business Analyst Relationship Specialty Start Date End Date Heena Abbasi MD [address] [place] [address] PCP - General Family Medicine 09/05/12 Eli Higuera Drip Box TenderMedical Translator 03/17/24 Eli Higuera Drip Box TenderMedical Translator 10/05/24 documented as of this encounter
--- OUTSIDE RECORDS SUMMARY | 2024-10-13 12:09 | XMS_ITS | Encounter Summary ---
Author Organization [employer] Address [address] [facility] 7t [place] [address] Care Team Providers Care Griddle Cook Name Role Phone Heena Abbasi MD Primary Care Provider [phone] Encounter Details Date Type Department Care Team (Latest Contact Info) Description 07/29/2022 Abstract [facility] CONVERSION[facility] Dental, Provider, DDS Social History Tobacco Use Types Packs/Day Years [...] Description 10/31/2024 10:30 AM EST Office Visit [facility] OPTOMETRY [address] [place] [address] Tarka, Allegra, OD [address] [place] [address] 11/02/2024 9:00 AM EST Office Visit [facility] CHC ADULT DENTAL [address] [place] [address] Karen Shea documented as of this encounter Visit Diagnoses Not on filedocumented in this encounter Care Teams Griddle Cook Relationship Specialty Start Date End Date Heena Abbasi MD [address] [place] [address] PCP - General Family Medicine 09/05/12 Eli Higuera Inspector Returned MaterialsManager Employee Benefits 03/17/24 Eli Higuera Inspector Returned MaterialsManager Employee Benefits 10/05/24 documented as of this encounter
--- OUTSIDE RECORDS SUMMARY | 2024-10-13 12:09 | XMS_ITS | Encounter Summary ---
Author Organization [employer] Address [address] [facility] 7t [place] [address] Care Team Providers Care Gas Or Water Meter Installer Name Role Phone Heena Abbasi MD Primary Care Provider [phone] Encounter Details Date Type Department Care Team (Late st Contact Info) Description 01/01/2023 Orders Only [facility] MED & PEDS [address] [place] [address] Heena Abbasi MD [address] [place] [address] Muscle spasm Social History Tobacco Use Types Packs/Day Years [...] Description 10/31/2024 10:30 AM EST Office Visit [facility] OPTOMETRY [address] [place] [address] Tarka, Allegra, OD [address] [place] [address] 11/02/2024 9:00 AM EST Office Visit [facility] ADULT DENTAL [address] [place] [address] Karen Shea documented as of this encounter Visit Diagnoses Diagnosis Muscle spasm Spasm of muscle documented in this encounter Care Teams Gas Or Water Meter Installer Relationship Specialty Start Date End Date Heena Abbasi MD [address] [place] [address] PCP - General Family Medicine 09/05/12 Eli Higuera Nitrate OperatorSeasonal Customer Service Associate 03/17/24 Eli Higuera Nitrate OperatorSeasonal Customer Service Associate 10/05/24 documented as of this encounter
--- OUTSIDE RECORDS SUMMARY | 2024-10-13 12:09 | XMS_ITS | Encounter Summary ---
Author Organization [employer] Address [address] [facility] 7t [place] [address] Care Team Providers Care Book Shelver Name Role Phone Heena Abbasi MD Primary Care Provider [phone] Encounter Details Date Type Department Care Team (Late st Contact Info) Description 12/09/2022 Orders Only [facility] MED & PEDS [address] [place] [address] Heena Abbasi MD [address] [place] [address] Social History Tobacco Use Types Packs/Day Years [...] Description 10/31/2024 10:30 AM EST Office Visit [facility] OPTOMETRY [address] [place] [address] Tarka, Allegra, OD [address] [place] [address] 11/02/2024 9:00 AM EST Office Visit [facility] ADULT DENTAL [address] [place] [address] Karen Shea documented as of this encounter Visit Diagnoses Not on filedocumented in this encounter Care Teams Book Shelver Relationship Specialty Start Date End Date Heena Abbasi MD [address] [place] [address] PCP - General Family Medicine 09/05/12 Eli Higuera Political Science Research AssistantEligibility Services Representative 03/17/24 Eli Higuera Political Science Research AssistantEligibility Services Representative 10/05/24 documented as of this encounter
--- OUTSIDE RECORDS SUMMARY | 2024-10-13 12:09 | XMS_ITS | Encounter Summary ---
Author Organization [employer] Address [address] [facility] 7t [place] [address] Care Team Providers Care Proposal Manager Writer Name Role Phone Heena Abbasi MD Primary Care Provider Reason for Visit * Reason Onset Date Comments Referral 07/29/2023 Encounter Details Date Type Department Care Team ([facility] st Contact Info) Description 07/29/2023 Telephone [facility] MEDICINE [address] [place] [address] Heena Abbasi MD [address] [place], [place] [phone] Referral Social History Tobacco Use Types Packs/Day Years Used Date Smoking Tobacco: Former Cigarettes Passive Smoke Exposure: Past Smokeless Tobacco: Never Housing Stability Answer Date Recorded What is your housing situation today? I have phyllis vicente 07/22/[address] you li ve. Do you have problems with any of the following? None of the above 07/22/2023 Food Insecurity Answer Date Recorded Within the past 12 months, y ou worried that your food would run out before you got money to buy more: Never True 07/22/2023 Within the past 12 months,th e food you bought just didn't last and you didn't have enough money to get more: Never True 10/2022 Transportation Answer Date Recorded In the past 12 months, has l ack of transportation kept you from medical appts, meetings, work or from getting things needed for daily living? No 07/22/2023 Utilities Answer Date Recorded In the past 12 months, has t he electric, gas, oil or water company threatened to shut off services in your home? No 07/22/2023 Comments Unknown Sex and Gender Information Value Date Recorded Sex Assigned at Female 07/20/2022 10:15 AM EDT Legal Sex Female 10:15 AM EDT Gender Identity Female 07/20/2022 10:15 AM EDT Sexual Orientation Straight 07/20/2022 10 :15 AM EDT documented as of this encounter Miscellaneous Notes * Telephone Encounter - Nancy Rosea - 07/29/2023 3:53 PM EST Call [facility] to verify, pt is scheduled 10/14/23 at 10:00 AM. MH is accepted at practice. Called pt to verify information provided and she was referring to Dermatology referral, not Allergy. Pt does not have an active Derm referral so was advised to call and schedule a visit with provider to get a referral to Dr Carlisle that accepts pt insurance. * Telephone Encounter - Rufinoeliezer Hickman - 07/29/2023 10:42 AM EST Tc from daughter calling in regards to the specialist the patient was referred to for allergy states that practice does not accept the patients insurance and would like to get referred else where. documented in this encounter Plan of Treatment Upcoming Encounters Date Type Department Care Team (Late st Contact Info) Description 10/31/2024 10:30 AM EST Office Visit [facility] OPTOMETRY [address] [place] [address] TarkaAllegra, OD [address] [place] [address] 11/02/2024 9:00 AM EST Office Visit [facility] CHC ADULT DENTAL [address] [place] [address] Karen Shea documented as of this encounter Visit Diagnoses Not on filedocumented in this encounter Care Teams Proposal Manager Writer Relationship Specialty Start Date End Date Heena Abbasi MD [address] [place] [address] PCP - General Family Medicine 09/05/12 Eli Higuera Chief Clinical OfficerVenue Manager 03/17/24 Eli Higuera Chief Clinical OfficerVenue Manager 10/05/24 documented as of this encounter
--- OUTSIDE RECORDS SUMMARY | 2024-10-13 12:09 | XMS_ITS | Encounter Summary ---
Author Organization [employer] Address [address] [facility] [address] 7t [place] [address] Care Team Providers Care Needle Loom Operator Helper Name Role Phone Heena Abbasi MD Primary Care Provider [phone] Encounter Details Date Type Department Care Team (Late st Contact Info) Description 02/29/2024 Telephone [facility] CHC ADULT DENTAL [address] [place] [address] Perri Noble, SOREN Social History Tobacco Use Types Packs/Day Years [...] encounter Miscellaneous Notes * Telephone Encounter - Jerrica Gonzalez - 02/29/2024 12:09 PM EDT Patient called looking for her dentures can we find out and book her .thank you documented in this encounter Plan of Treatment Upcoming Encounters Date Type Department Care Team (Late st Contact Info) Description 10/31/2024 10:30 AM EST Office Visit [facility] OPTOMETRY [address] [place] [address] Allegra Escobedo, OD [address] [place] [address] 11/02/2024 9:00 AM EST Office Visit [facility] CHC ADULT DENTAL [address] [place] [address] Karen Shea documented as of this encounter Visit Diagnoses Not on filedocumented in this encounter Additional Health Concerns Assessment Noted Time PHQ-9 Depression Total Score: 5 12/31/19 24 10:57 AM EDT documented as of this encounter Care Teams Needle Loom Operator Helper Relationship Specialty Start Date End Date Heena Abbasi MD [address] [place] [address] PCP - General Family Medicine 09/05/12 Eli Higuera Service Delivery ManagerMedical Coder 03/17/24 Eli Higuera Service Delivery ManagerMedical Coder 10/05/24 documented as of this encounter
--- OUTSIDE RECORDS SUMMARY | 2024-10-13 12:09 | XMS_ITS | Clinical Summary ---
Author Organization [employer] Address [address] [facility] [address] [place] [address] Care Team Providers Care Risk Developer Name Role Phone Heena Abbasi MD Primary Care Provider [phone] Allergies No known active allergies Medications ketotifen (Zaditor) 0.025 % ophthalmic solution Apply 2 drops into the affected eye(s) daily 2 Active Calcium Carb-Cholecalcife rol 500-10 MG-MCG tablet Take 1 tablet by mouth 1 (one) time each day. 1 Active cyclobenzaprine (Flexeril) 5 MG tablet Take 1 tablet by mouth at bedtime. 2 Active ferrous sulfate 325 (65 Fe) MG tablet Take 1 tablet by mouth 1 (one) time each day. 2 Active ketotifen (Zaditor) 0.025 % ophthalmic solution INSTILL 2 DROPS EVERY DAY INTO AFFECTED EYE(S) 2 Active lidocaine-priloca ine (Emla) 2.5-2.5 % cream APPLY BY TOPICAL ROUTE EVERY DAY NEEDED. 2 Active chlorhexidine (Hibiclens) 4 % external liquidIndications :Hydradenitis Apply topically if needed each day for wound care. 100 mL 3 3 Active aspirin-acetamino phen-caffeine (Excedrin Migraine) 250-250-65 MG tabletIndications :Hypercholesterol emia take 1 tablet by oral route every 8 hours prn 90 tablet 1 3 Active amoxicillin (Amoxil) 500 MG capsule Please take 4 capsules (2 g) 1 hour prior to dental appointment. 12 capsule 3 Active warfarin (Coumadin) 2 MG tablet TAKE 1 TABLET BY ORAL ROUTE EVERY DAY DIRECTED BY THE COUMADIN CLINIC 30 tablet 11 3 Active fluticasone (Cutivate) 0.005 % ointmentIndicatio ns:Eczema, unspecified type APLIQUE AL AREA AFECTADA DOS VECES AL RENAY 30 g 3 3 Active diphenhydrAMINE (Banophen) 25 MG tabletIndications :Muscle spasm Take 1 tablet (25 mg) by mouth if needed at bedtime for sleep. 90 tablet 3 4 10/24/19 25 Active gemfibrozil (Lopid) 600 MG tabletIndications :Hypercholesterol emia TOME ELIO TABLETA POR VIA ORAL 2 TIMES DAILY 180 tablet 11 4 Active triamcinolone (Kenalog) 0.025 % ointment APPLY TO CHEST TWICE DAILY NEEDED FOR FLARES, DECREASE USE SYMPTOMS IMPROVE 4 Active Triamcinolone Acetonide 0.025 % lotion APPLY TO SCALP TWICE A DAY IF NEEDED FOR FLARES, DECREASE USE SYMPTOMS IMPROVE 4 Active ammonium lactate (Amlactin) 12 % cream APPLY TO ARMS, TRUNK, AND LEGS TWICE A DAY 4 Active acetaminophen (Tylenol 8 Hour) 650 MG ER tabletIndications :Acute bilateral low back pain, unspecified whether sciatica present Take 1 tablet (650 mg) by mouth every 8 (eight) hours if needed for moderate pain or mild pain. 30 tablet 4 Active FLUoxetine (PROzac) 10 MG tabletIndications :Flushing, menopausal TOME ELIO TABLETA [facility] 30 tablet 2 4 Active traZODone (Desyrel) 50 MG tabletIndications :Insomnia, unspecified type TAKE 1 TABLET BY MOUTH AT BEDTIME 30 tablet 2 4 Active Diclofenac Sodium 1 % gelIndications:Ac [place] bilateral low back pain, unspecified whether sciatica present APPLY 1 INCH TOPICALLY ONCE A DAY 100 g 4 Active cetirizine (ZyrTEC) 10 MG tablet TAKE 1 TABLET 1-2 TIMES PER DAY FOR ITCH, RASH 90 tablet 4 Active cyclobenzaprine (Flexeril) 10 MG tablet Take 1 tablet (10 mg) by mouth 3 times daily for 10 days. 30 tablet 4 Active Polyethyl Glycol-Propyl Glycol (Lubricant Eye Drops) 0.4-0.3 % solution Administer 0.1 mL into affected eye(s) 3 times daily. 10 mL 3 4 Active pantoprazole (ProtoNix) 20 MG EC tabletIndications :GERD without esophagitis TAKE 1 TABLET BY MOUTH BEFORE BREAKFAST 90 tablet 1 4 Active warfarin (Coumadin) 4 MG tabletIndications :Chronic atrial fibrillation (CMS/HCC) TAKE 1 TABLET BY MOUTH DAILY OR DIRECTED BY THE COUMADIN CLINIC 30 tablet 1 4 Active Lidocaine 5 % creamIndications: Acute right-sided low back pain with right-sided sciatica Apply topically bid 30 g 3 5 Active Active Problems Problem Noted Date Diagnosed Date Acute right-sided low back pain with right-sided sciatica 10/13/2024 Assessment & Plan (10/13/2024 10:18 AM EST): Ongoing x3 months. -prescribed Lidocaine cream -ordered lumbar XR. Right sided abdominal pain 10/13/2024 Assessment & Plan (10/13/2024 10:18 AM EST): Unknown etiology. Ordered CBC and CRP. Acute bilateral low back pain 02/18/2024 Assessment & Plan (02/18/2024 1:54 PM EDT): Likely muscle spasm, I advise to apply heat on affected area Gentle stretching Short course of flexeril, I dormitory counselor about side effect somnolence Acetaminophen 1300mg Q8-12hrs Diclofenac gel once a day only if really needed for max 3 days Allergic reaction 07/02/2023 Assessment & Plan (07/02/2023 10:47 AM EDT): Benadryl 25mg Q 6hrs Avoid triggers triacinolone for rash Ketotifen for eyes Patient educated about red flags and ED precautions she understood if airway compromise, if swallowing problems or mouth swelling to go straight BONNY to emergency room or call ambulance Rash 07/02/2023 Allergic conjunctivitis of both eyes 07/02/2023 Chronic atrial fibrillation 10/19/2022 Benign hypertension 03/06/2013 Assessment & Plan (07/02/2023 10:44 AM EDT): Patient is not on medications but reports at home is normal , I advise to monitor her BP, low Na diet and f/u with her PCP Hypercholesterolemia 03/06/2013 Insomnia 03/06/2013 Encounters Date Type Department Care Team Description 10/13/2024 9:40 AM EST Office Visit [facility] [address] [address] Arianna Engle MD Acute right-sided low back pain with right-sided sciatica (Primary Dx); Right sided abdominal pain 10/05/2024 Telephone [facility] [address] [place] [address] Heena Abbasi MD Care Coordination (ICP care plan) 09/28/2024 Orders Only GENERIC EXTERNAL DATA DEPARTMENT Provider, Generic External Data 09/08/2024 Refill [facility] [address] [place] [address] Heena Abbasi MD Chronic atrial fibrillation ([facility]/HCC) 08/31/2024 Orders Only GENERIC EXTERNAL DATA DEPARTMENT Provider, Generic External Data 08/03/2024 Orders Only GENERIC EXTERNAL DATA DEPARTMENT Provider, Generic External Data 07/17/2024 Refill [facility] [address] [place] [address] Heena Abbasi MD GERD without esophagitis 07/14/2024 11:00 AM EDT [facility] [address] [address] Heena Abbasi MD Back muscle spasm (Primary Dx); Dry eye from Last 3 Months Immunizations Name Administration Dates Next Due Hep B, adult 11/03/2002,07/25/2001,05/20/2000 Influenza Injectable Quadriv alant Preservative Free IIV4 MDCK 09/15/2021 Influenza injectable quadriv alent IIV4 with preservative 09/27/2019,06/29/2018,06/15/2016,2014 Influenza injectable quadriv alent preservative free 08/06/2023,06/04/2022,08/09/2020 Influenza, IIV3, injectable 07/04/2014, 2 Influenza, Split (incl. caio fied surface antigen) 07/07/2013 TD (adult), 2 Lf tetanus tox oid, preservative free, adsorbed 07/25/2001 Tdap 11/19/2017 Zoster, Recombinant 06/04/2022 Social History Tobacco Use Types Packs/Day Years Used Date Smoking Tobacco: Former Cigarettes Passive Smoke Exposure: Past Smokeless Tobacco: Never Tobacco Cessation:Counseling Given: Not Answered Depression Answer Date Recorded Patient Health Questionnaire-9 [...] Orientation Straight 07/20/2022 10 :15 AM EDT Last Filed Vital Signs Vital Sign Reading Time Taken Comments Blood Pressure 146/74 10/13/2024 9:48 AM EST Pulse 92 10/13/2024 9:48 AM EST Temperature 36.8 ??C (98.2 ??F) 10/13/2024 9:48 AM ES T Respiratory Rate 18 10/13/2024 9:48 AM EST Oxygen Saturation 99% 07/14/2024 10:02 AM EDT Inhaled Oxygen Concentration - - Weight 65.5 kg (144 lb 6.4 oz) 10/13/2024 9:48 A M EST Height 147.3 cm (4' 10 ) 10/13/2024 9:48 AM EST Body Mass Index 30.18 10/13/2024 9:48 AM EST Plan of Treatment Upcoming Encounters Date Type Department Care Team (Late st Contact Info) Description 10/31/2024 10:30 AM EST Office Visit [facility] [address] [place], [place] [phone] Allegra Escobedo, OD [address] [place], [place] [phone] 11/02/2024 9:00 AM EST Office Visit [facility] [address] [place], [place] [phone] Karen Shea Health Maintenance Due Date Last Done Comments CT Colonography 1965 Colonoscopy 1965 FIT 1965 FOBT 1965 HIV Screening 1965 Sigmoidoscopy 1965 Hepatitis C Screening 02/11/1982 Pap Smear 02/11/1985 Cervical Cancer Screening 02/11/1994 HPV/Cotest 02/11/1994 Zoster Vaccines (2 of 2) 07/30/2022 06/04/2022 RSV Patients and Patients Aged 60 years or older (1 - Risk 60-74 years 1-dose series) 2024 COVID-19 Vaccine ( season) 2024 11/13/2022, 01/02/2022, 02/20/2021, Additional history exists Influenza Vaccine (#1) 2024 , 06/04/2022, 09/15/2021, Additional history exists Dental Oral Exam 06/16/2024 12/14/2023, 07/29/2022 Dental Prophylaxis 06/16/2024 12/14/2023, 07/29/2022 Dental X-Ray: Bitewings 12/14/2024 12/14/2023, 07/29 SDOH Screening 12/20/2024 12/21/2023 Alcohol/Substance Use Screening 12/30/2024 12/31/2023 Depression Screening 12/30/2024 12/31/2023, 12/31/19 Mammogram 04/20/2025 04/20/2024, 0704/2023, 03/06/2022 Tobacco Screening 10/13/2025 10/13/2024 Dental X-Ray: Full Mouth 12/14/2026 12/14/2023, 0312/2018 Colorectal Cancer Screening 01/10/2027 FIT DNA/Cologuard 01/10/2027 01/11/2024 DTaP/Tdap/Td Vaccines (2 - Td or Tdap) 11/20/2027 11/19/2017, 07/25/2001 Lipid Panel 02/14/2029 02/15/2024, 01/19, 02/03/2021, Additional history exists Hepatitis B Vaccines Completed 11/03/2002, 07/25/2001, 05/20/2000 HIB Vaccines Aged Out No longer eligi ble based on patient's age to complete this topic HPV Vaccines Aged Out No longer eligi ble based on patient's age to complete this topic Hepatitis A Vaccines Aged Out No long er eligible based on patient's age to complete this topic IPV Vaccines Aged Out No longer eligi ble based on patient's age to complete this topic Meningococcal Vaccine Aged Out No scotty marjorie eligible based on patient's age to complete this topic Pneumococcal Vaccine: Pediatrics (0 to 5 Years) and At-Risk Patients (6 to 64 Years) Aged Out No longer eligible based on patient's age to complete this topic RSV under 20 months Aged Out No longe r eligible based on patient's age to complete this topic Rotavirus Vaccines Aged Out No longer eligible based on patient's age to complete this topic Procedures Procedure Name Priority Date/Time Associated Diagnosis Comments XR LUMBAR SPINE 2-3 VIEWS Routine 10/13/2024 10:39 AM EST Acute right-sided low back pain with right-sided sciatica PROTHROMBIN TIME WHOLE BLD POC Routine 09/28/2024 10:21 AM EST ~PT, ~INR - ANTI COAG CLINIC Routine 09/28/2024 10:21 AM EST PROTHROMBIN TIME WHOLE BLD POC Routine 08/31/2024 10:13 AM EST ~PT, ~INR - ANTI COAG CLINIC Routine 08/31/2024 10:13 AM EST PROTHROMBIN TIME WHOLE BLD POC Routine 08/03/2024 10:08 AM EST ~PT, ~INR - ANTI COAG CLINIC Routine 08/03/2024 10:08 AM EST BI MAMMOGRAM SCREENING TOMOSYNTHESIS BILATERAL Routine 04/20/2024 9:00 AM EDT LIPID PANEL, STANDARD Routine 02/15/2024 10:47 AM EDT Benign hypertension LAB COLOGUARD?? COLON CANCER SCREEN Routine 01/11/2024 9:45 AM EDT Encounter for screening for malignant neoplasm of colon PROPHYLAXIS - ADULT Routine 12/14/2023 1 0:00 AM EDT DIAGNOSTIC - DIAGNOSTIC IMAGING - INTRAORAL - COMPREHENSIVE SERIES OF RADIOGRAPHIC IMAGES Routine 12/14/2023 10:00 AM EDT PERIODIC ORAL EVALUATION - ESTABLISHED PATIENT Routine 12/14/2023 10:00 AM EDT from Last 3 Months or Most Recently Relevant to Health Maintenance Results * XR Lumbar Spine 2-3 Views (10/13/2024 10:39 AM EST) Anatomical Region Laterality Modality Spine, L-spine Radiographic Nerissa ging 10/13/2024 10:3 9 AM EST Narrative 10/13/2024 11:36 AM EST ?[facility] ?[address] ?[place] [address] ?XRay Report ? Signed ? Patient: Holly,Omaira ?MR#: [id number] ? : 1965 ?Acct:[id number] ? Age/Sex: 59 / F ?ADM Date: 01/24/25 ? Loc: HO.HHCX ? Attending Dr: Arianna Engle MD ? Ordering Physician: Arianna Engle MD ?? Date of Service: 10/13/24 ?? Procedure(s): XR lumbar spine 2-3V ?? Accession Number(s): [id number] ? cc: Arianna Engle MD ? EXAMINATION: ?? XR LUMBOSACRAL SPINE ? CLINICAL INFORMATION: ?? acute on chornic right back pain , right-sided low back pain x3 days ?? with sciatica. No injury. ? COMPARISON: ?? None available. ? TECHNIQUE: ?? Three views of the lumbosacral spine. ? FINDINGS: ?? Normal lordosis. No scoliosis. ?? No fractures, compression deformities, subluxations, or suspicious ?? focal bony abnormalities. ?? Severe disc space degeneration L5-S1 with mild sclerosis of the ?? endplates. ?? Disc spaces superior to L5 otherwise demonstrate mild degeneration . ?? Associated hypertrophic facet degeneration spanning L4-S1. ? Soft tissues demonstrate vascular calcifications. There are ?? cholecystectomy clips. ? XR/XR lumbar spine 2-3V ?? IMPRESSION: ?? 1. No acute findings of the lumbar spine. ?? 2. Degenerative changes as discussed. ? Electronically signed by: ??Burke Jeffers MD ??10/13/2024 11:33 AM EST RP ? Dictated By: ?Burke Jeffers MD ? Signed By: ?<Electronically signed by Burke Jeffers MD in OV> ?10/13/24 1133 ? DD/ 1039 ? TD/TT: 10/13/24 1052 ? [employer] Lubricator Tender: ? Procedure Note Amanda Wagner - 10/13/[address] [address] XRay Report Signed Patient: Omaira HollyMR#: [id number] : 1965Acct:[id number] Age/Sex: 59 / FADM Date: 10/13/24 Loc: HO.HHCX Attending Dr: Arianna Engle MD Ordering Physician: Arianna Engle MD Date of Service: 10/13/24 Procedure(s): XR lumbar spine 2-3V Accession Number(s): [id number] cc: Arianna Engle MD EXAMINATION: XR LUMBOSACRAL SPINE CLINICAL INFORMATION: acute on chornic right back pain , right-sided low back pain x3 days with sciatica. No injury. COMPARISON: None available. TECHNIQUE: Three views of the lumbosacral spine. FINDINGS: Normal lordosis. No scoliosis. No fractures, compression deformities, subluxations, or suspicious focal bony abnormalities. Severe disc space degeneration L5-S1 with mild sclerosis of the endplates. Disc spaces superior to L5 otherwise demonstrate mild degeneration . Associated hypertrophic facet degeneration spanning L4-S1. Soft tissues demonstrate vascular calcifications. There are cholecystectomy clips. XR/XR lumbar spine 2-3V IMPRESSION: 1. No acute findings of the lumbar spine. 2. Degenerative changes as discussed. Electronically signed by: Burke Jeffers MD 10/13/2024 11:33 AM EST Workstation: [id number] Dictated By: Burke Jeffers MD Signed By: <Electronically signed by Burke Jeffers MD in OV> 10/13/24 1133 DD/ 1039 TD/TT: 10/13/24 1052 [employer] Lub[employer] Tender: us Arianna Engle MD IMG XR PROCEDURES Final Re sult * (ABNORMAL) PROTHROMBIN TIME WHOLE BLD POC (09/28/2024 10:21 AM EST) Only the most recent of3 resultswithin the time period is included. Protime 35.7(H) 11.1 - 13.5 sec [facility] 09/28/2024 10:2 1 AM EST 09/28/2024 10:55 AM EST us Generic External Data Provider LAB BLOOD ORDERAB LES Final Result [facility] [address] [place] [phone] * (ABNORMAL) ~PT, ~INR - ANTI COAG CLINIC (09/28/2024 10:21 AM EST) Only the most recent of3 resultswithin the time period is included. Prothrombin Time INR 3.0(H) 0.9 - 1.1 [facility] Comment:METER #: [id number] TERNATIONAL NORMALIZED RATIO (INR) REFERENCE RANGES Reference RangeFor patients not on anticoagulant therapy: 0.9 - 1.1INR ranges for oral anticoagulanttherapy:For prevention and treatment of venous thrombosis and pulmonary embolism: 2.0 - 3.0For acute myocardial infarction with aspirin therapy: 2.0 - 3.0For acute myocardial infarction without aspirin therapy: 3.0 - 4.0For patients with mechanical prosthetic heart valves: 2.5 - 3.5 09/28/2024 10:2 1 AM EST 09/28/2024 10:55 AM EST us Generic External Data Provider LAB BLOOD ORDERAB LES Final Result Performing Organization Address City/State/[facility] Co de Phone Number [facility] [address] [place] [address] [phone] * BI Mammogram Screening Tomosynthesis Bilateral (04/20/2024 9:00 AM EDT) Anatomical Region Laterality Modality Breast Bilateral Mammography 04/20/2024 9:00 AM EDT Narrative 05/15/2024 2:28 AM EDT ? [facility] [place] ? [address] ?[place] [id number] ? Mammography Report ? Signed ? Patient: Holly,Omaira ?MR#: [id number] ? : 1965 ?Acct:[id number] ? Age/Sex: 59 / F ?ADM Date: 08/01/24 ? Loc: HO.MAMMO ? Attending Dr: Heena Abbasi MD ? Ordering Physician: Heena Abbasi MD ?Results: 1Negati ?? ve ? Date of Service: 04/20/24 ?Follow Up: 1 Year From Orig ?? inal Mammogram ? Procedure(s): MM tomosynthesis screening BI ?? Accession Number(s): [id number] ? cc: Heena Abbasi MD ? EXAMINATION: ?? MM SCREENING DIGITAL BREAST TOMOSYNTHESIS, BILATERAL ? CLINICAL INFORMATION: ? Screening. Asymptomatic. ? COMPARISON: ?? Mammography: This study is compared with prior exams dating back to ? 2021. ? TECHNIQUE: ?? Digital breast tomosynthesis is performed in both the craniocaudal and ?? mediolateral oblique views along with computer-aided detection (CAD). ? Synthesized 2D images are generated from the tomosynthesis. ? FINDINGS: ?? There are scattered areas of fibroglandular density (ACR BI-RADS breast ?? composition Category b). ? There are no significant masses, abnormal calcifications, or other ?? abnormalities. ? MM/MM tomosynthesis screening BI ?? IMPRESSION: ?? No mammographic evidence of malignancy. ? ASSESSMENT: ? BI-RADS BI-RADS 1 - Negative ? RECOMMENDATION: ?? Routine annual mammography screening. ? 1 year F/U ? This examination should not preclude the clinical evaluation of a ?? suspicious palpable abnormality. ? This patient's information was entered into a reminder system with a ?? target due date for their next mammogram. ? Electronically signed by: ??Lacey Michelle MD ??05/15/2024 02:24 AM EDT RP ? Dictated By: ?Lacey Michelle MD ? Signed By: ?<Electronically signed by Lacey Michelle MD in OV> ? 05/15/24 0224 ? DD/ 0900 ? TD/TT: 04/20/24914 ? Bar Gauger And Lubricator Tender: ? Procedure Note Donotuseinterpreter, Image - [facility] [address] [place], [place] [address] Mammography Report Signed Patient: Omaira HollyMR#: [id number] : 1965Acct:[id number] Age/Sex: 59 / FADM Date: 04/20/24 Loc: HO.MAMMO Attending Dr: Heena Abbasi MD Ordering Physician: Heena Abbasi MDResults: 1Negati ve Date of Service: 04/20/24Follow Up: 1 Year From Orig inal Mammogram Procedure(s): MM tomosynthesis screening BI Accession Number(s): [id number] cc: Heena Abbasi MD EXAMINATION: MM SCREENING DIGITAL BREAST TOMOSYNTHESIS, BILATERAL CLINICAL INFORMATION: Screening. Asymptomatic. COMPARISON: Mammography: This study is compared with prior exams dating back to 2021. TECHNIQUE: Digital breast tomosynthesis is performed in both the craniocaudal and mediolateral oblique views along with computer-aided detection (CAD). Synthesized 2D images are generated from the tomosynthesis. FINDINGS: There are scattered areas of fibroglandular density (ACR BI-RADS breast composition Category b). There are no significant masses, abnormal calcifications, or other abnormalities. MM/MM tomosynthesis screening BI IMPRESSION: No mammographic evidence of malignancy. ASSESSMENT: BI-RADS BI-RADS 1 - Negative RECOMMENDATION: Routine annual mammography screening. 1 year F/U This examination should not preclude the clinical evaluation of a suspicious palpable abnormality. This patient's information was entered into a reminder system with a target due date for their next mammogram. Electronically signed by: Lacey Michelle MD 05/15/2024 02:24 AM EDT Dictated By: Lacey Michelle MD Signed By: <Electronically signed by Lacey Michelle MD in OV> 05/15/24223 DD/ 9 TD/TT: 04/20/24 0915 Bar G[employer] And Lubricator Tender: Heena Abbasi MD IMG BI PROCEDURES Final Result * (ABNORMAL) Lipid Panel, Standard (02/15/2024 10:47 AM EDT) Triglycerides 55 <150 mg/dL [facility] Comment:Desirable Triglyceri de: less than 150 mg/dLBorderline High Triglyceride 150-199 mg/dLHigh Triglyceride: 200-499 mg/dLVery High Triglyceride: greater than or equal to 5OO mg/dL Cholesterol 175 <200 mg/dL [facility] Comment:Desirable Cholestero l: less than 200 mg/dLBorderline High Cholesterol: 200-239 mg/dLHigh Cholesterol: greater than 239 mg/dL LDL Cholesterol Calculated 101(H) <100 mg/dL [facility] Comment:Desirable LDL: less than 100 mg/dLNear Optimal/Above Optimal LDL: 110- 129 mg/dLBorderline High LDL: 130-159 mg/dLHigh LDL: 160-189 mg/dLVery High LDL: greater than or equal to 190 mg/dL HDL Cholesterol 63 >40 mg/dL [facility] Comment:Desirable HDL: great er than 40 mg/dL Note: This HDL assay may give artificially low results in patients with liver disease. Blood Venous blood specimen / Unknown 02/15/2024 10:47 AM EDT 02/15/2024 10:47 AM EDT Heena Abbasi MD LAB BLOOD ORDERABLES Final Resul t [facility] [address] [place] [phone] * Cologuard?? colon cancer screening (01/11/2024 9:45 AM EDT) Cologuard Result Negative Negative 01/20/20 12:00 PM EDT [employer] (CLIA #:[id number]) Comment: NEGATIVE TEST RESULT. A negative Cologuard result indicates a low likelihood that a colorectal cancer (CRC) or advanced adenoma (adenomatous polyps with more advanced pre-malignant features) ??is present. The chance that a person with a negative Cologuard test has a colorectal cancer is less than 1 in 1500 (negative predictive value >99.9%) or has an ??advanced adenoma is less than ??5.3% (negative predictive value 94.7%). These data are based on a prospective cross-sectional study of 10,000 individuals at average risk for colorectal cancer who were screened with both Cologuard and colonoscopy. (Mando Sidhu al, N Engl J Med 2014;370(14):1286- 1297) The normal value (reference range) for this assay is negative. COLOGUARD RE-SCREENING RECOMMENDATION: Periodic colorectal cancer screening is an important part of preventive healthcare for asymptomatic individuals at average risk for colorectal cancer. ??Following a negative Cologuard result, the [place] [employer] and U.S. Multi-Society Task Force screening guidelines recommend a Cologuard re-screening interval of 3 years. References: [place] [employer] Guideline for Colorectal Cancer Screening: https://www.cancer.org/cancer/mybfd-nmjsgc-ynkipe/nhzawmjgu-aalpnicxn-pyqfgjd/ac s-rec ommendations.html.; Dane DK, Feroz GALE, Lauro McdanielK, Colorectal Cancer Screening: Recommendations for Physicians and Patients from the U.S. Multi-Society Task Force on Colorectal Cancer Screening , Am J Gastroenterology 2017; 112:1741-9535. TEST DESCRIPTION: Composite algorithmic analysis of stool DNA-biomarkers with hemoglobin immunoassay. ?? Quantitative values of individual biomarkers are not reportable and are not associated with individual biomarker result reference ranges. Cologuard is intended for colorectal cancer screening of adults of either sex, 45 years or older, who are at average-risk for colorectal cancer (CRC). Cologuard has been approved for use by the U.S. FDA. The performance of Cologuard was established in a cross sectional study of average-risk adults aged 50-84. Cologuard performance in patients ages 45 to 49 years was estimated by sub-group analysis of near-age groups. Colonoscopies performed for a positive result may find as the most clinically significant lesion: colorectal cancer [4.0%], advanced adenoma (including sessile serrated polyps greater than or equal to 1cm diameter) [20%] or non- advanced adenoma [31%]; or no colorectal neoplasia [45%]. These estimates are derived from a prospective cross-sectional screening study of 10,000 individuals at average risk for colorectal cancer who were screened with both Cologuard and colonoscopy. (Mando Sidhu al, N Engl J Med 2014;370(14):1405-2883.) Cologuard may produce a false negative or false positive result (no colorectal cancer or precancerous polyp present at colonoscopy follow up). A negative Cologuard test result does not guarantee the absence of CRC or advanced adenoma (pre-cancer). The current Cologuard screening interval is every 3 years. ([place] [employer] and U.S. Multi-Society Task Force). Cologuard performance data in a 10,000 patient pivotal study using colonoscopy as the reference method can be accessed at the following location: [email or web address]. Additional description of the Cologuard test process, warnings and precautions can be found at [email or web address]. Stool specimen (specimen) 01/11/2024 9:45 AM EDT 01/13/2024 10:47 AM EDT us Heena Abbasi MD LAB MOLECULAR DIAGNOSTICS ORDERHolli OMALLEY Final Result [employer] (CLIA #:[id number]) [address] [place] [address], from Last 3 Months or Most Recently Relevant to Health Maintenance Insurance [address] [place], [place] [address] [facility] STAND ADULT DENTAL-[facility] MEDICAID STAND ADULT Care Teams Risk Developer Relationship Specialty Start Date End Date Heena Abbasi MD [address] [place] [address] PCP - General Family Medicine 09/05/12 Eli Higuera Dressmaker Garment FitterMaintenance Supervisor 03/17/24 Eli Higuera Dressmaker Garment FitterMaintenance Supervisor 10/05/24
--- OUTSIDE RECORDS SUMMARY | 2024-10-13 12:09 | XMS_ITS | Encounter Summary ---
Author Organization [employer] Address 75 [facility] 7t [place] [address] Care Team Providers Care Medical Imaging Technologist Name Role Phone Heena Abbasi MD Primary Care Provider [phone] Encounter Details Date Type Department Care Team (Latest Contact Info) Description 11/21/2018 Abstract [facility] CONVERSIONS Dental, Provider, DDS Social History Tobacco [...] Description 10/31/2024 10:30 AM EST Office Visit [facility] OPTOMETRY [address] [place] [address] Tarka, Allegra, OD [address] [place] [address] 11/02/2024 9:00 AM EST Office Visit [facility] CHC ADULT DENTAL [address] [place] [address] Karen Shea documented as of this encounter Visit Diagnoses Not on filedocumented in this encounter Care Teams Medical Imaging Technologist Relationship Specialty Start Date End Date Heena Abbasi MD [address] [place] [address] PCP - General Family Medicine 09/05/12 Eli Higuera Disassembler ProductTelegraph Editor 03/17/24 Eli Higuera Disassembler ProductTelegraph Editor 10/05/24 documented as of this encounter
--- OUTSIDE RECORDS SUMMARY | 2024-10-13 12:10 | XMS_ITS | Encounter Summary ---
Author Organization [employer] Address 75 [facility] 7t [place] [address] Care Team Providers Care Oenologist Name Role Phone Heena Abbasi MD Primary Care Provider Encounter Details Date Type Department Care Team (Late st Contact Info) Description 04/05/2023 Orders Only [facility] MED & PEDS [address] [place] [address] Heena Abbasi MD [address] [place] [address] Social History Tobacco Use Types Packs/Day Years [...] 10:30 AM EST Office Visit [facility] OPTOMETRY [address] [place] [address] Tarka, Allegra, OD [address] [place] [address] 11/02/2024 9:00 AM EST Office Visit [facility] ADULT DENTAL [address] [place] [address] Karen Shea documented as of this encounter Visit Diagnoses Not on filedocumented in this encounter Care Teams Oenologist Relationship Specialty Start Date End Date Heena Abbasi MD [address] [place] [address] PCP - General Family Medicine 09/05/12 Eli Higuera Wire Brush MakerDress Draper 03/17/24 Eli Higuera Wire Brush MakerDress Draper 10/05/24 documented as of this encounter
--- OUTSIDE RECORDS SUMMARY | 2024-10-13 12:10 | XMS_ITS | Encounter Summary ---
Author Organization [employer] Address [address] [facility] [address] [place] [address] Care Team Providers Care Passport Application Examiner Name Role Phone Heena Abbasi MD Primary Care Provider [phone] Reason for Visit * Reason Comments Leg Pain Abdominal Pain Back Pain Arm Pain Encounter Details Date Type Department Care Team (Late st Contact Info) Description 10/13/2024 9:40 AM EST Office Visit [facility] [address] [place] [phone] Arianna Engle MD [address] [place], [place] [phone] Acute right-sided low back pain with right-sided sciatica (Primary Dx); Right sided abdominal pain Social History Tobacco Use Types Packs/Day Years [...] AM EDT documented as of this encounter Last Filed Vital Signs Vital Sign Reading Time Taken Comments Blood Pressure 146/74 10/13/2024 9:48 AM EST Pulse 92 10/13/2024 9:48 AM EST Temperature 36.8 ??C (98.2 ??F) 10/13/2024 9:48 AM ES T Respiratory Rate 18 10/13/2024 9:48 AM EST Oxygen Saturation - - Inhaled Oxygen Concentration - - Weight 65.5 kg (144 lb 6.4 oz) 10/13/2024 9:48 A M EST Height 147.3 cm (4' 10 ) 10/13/2024 9:48 AM EST Body Mass Index 30.18 10/13/2024 9:48 AM EST documented in this encounter Progress Notes * Rashida Sands - 10/13/2024 9:40 AM EST Subjective Patient ID: Omaira Holly is a 59 y.o. female with PMHx of hypertension, atrial fibrillation, hx of stroke, and hypercholesterolemia who presents to walk in clinic for Leg Pain, Abdominal Pain, BackPain, and Arm Pain. Seen in Walk [facility] on 07/14/24 for leg and back pain. Prescribed Flexeril 10 mg. Also seen on 02/18/24 for same symptoms and prescribed Diclofenac Gel. Pt reports for 3 months she has started having right sided low back pain radiating to right leg. She reports the past 3 days she has had some abdominal discomfort especially when straining to have a bowel movement. Pt reports she had a stroke 16 years ago and has had trouble walking on her right side. Review of Systems Constitutional: Negative for fever and unexpected weight change. Respiratory: Negative for shortness of breath. Cardiovascular: Negative for chest pain. Gastrointestinal: Positive for abdominal pain. Genitourinary: Negative for difficulty urinating. Musculoskeletal: Positive for back pain. Objective Visit Vitals BP (!) 146/74 (BP Location: Left arm, Patient Position: Sitting, BP Cuff Size: Adult) Pulse 92 Temp 98.2 ??F (36.8 ??C) (Oral) Resp 18 Body mass index is 30.18 kg/m??. Physical Exam Constitutional: Appearance: Normal appearance. Pulmonary: Effort: Pulmonary effort is normal. Abdominal: Palpations: Abdomen is soft. Tenderness: There is abdominal tenderness (mild tenderness on right side). There is no guarding or rebound. Musculoskeletal: Cervical back: Normal range of motion. Lumbar back: Spasms (right paraspinal) and tenderness (right paraspinal) present. Neurological: General: No focal deficit present. Mental Status: She is alert. Psychiatric: Behavior: Behavior normal. Problem List Items Addressed This Visit Acute right-sided low back pain with right-sided sciatica - Primary Ongoing x3 months. -prescribed Lidocaine cream -ordered lumbar XR. Relevant Medications Lidocaine 5 % cream Other Relevant Orders CBC auto differential C-reactive Protein XR Lumbar Spine 2-3 Views Right sided abdominal pain Unknown etiology. Ordered CBC and CRP. -No evidence of acute disease process. Suspect muscle spams versus muscle strain in back and unknown etiology of abdominal pain. Symptoms mild. -Prescribed topical anesthetic for back pain and ordered labs and xray. -ER precautions discussed. -Seek medical attention for worsening symptoms. I, Rashida Sands, am serving as a scribe to document services personally performed by Dr. Rincon, based on the patient's response to questions by provider and providers statements to me. documented in this encounter Miscellaneous Notes * Assessment & Plan Note - Rashida Sands - 10/13/2024 10:18 AM ESTAssociated Problem(s): Acute right-sided low back pain with right-sided sciatica Ongoing x3 months. -prescribed Lidocaine cream -ordered lumbar XR. * Assessment & Plan Note - Rashida Sands - 10/13/2024 10:18 AM ESTAssociated Problem(s): Right sided abdominal pain Unknown etiology. Ordered CBC and CRP. documented in this encounter Plan of Treatment Upcoming Encounters Date Type Department Care Team (Late st Contact Info) Description 10/31/2024 10:30 AM EST Office Visit [facility] OPTOMETRY [address] [place] [address] Allegra Escobedo, OD [address] [place] [address] 11/02/2024 9:00 AM EST Office Visit [facility] CHC ADULT DENTAL [address] [place] [address] Karen Shea Scheduled Orders Name Type Priority Associated Diagnoses Orde r Schedule CBC auto differential Lab STAT Acute right-sided low back pain with right-sided sciatica Expected: 10/13/2024 (Approximate), Expires: 10/13/2025 C-reactive Protein Lab STAT Acute right-sided low back pain with right-sided sciatica Expected: 10/13/2024 (Approximate), Expires: 10/13/2025 documented as of this encounter Procedures Procedure Name Priority Date/Time Associated Diagnosis Comments XR LUMBAR SPINE 2-3 VIEWS Routine 10/13/2024 10:39 AM EST Acute right-sided low back pain with right-sided sciatica documented in this encounter Results * XR Lumbar Spine 2-3 Views (10/13/2024 10:39 AM EST) Anatomical Region Laterality Modality Spine, L-spine Radiographic Nerissa ging 10/13/2024 10:3 9 AM EST Narrative 10/13/2024 11:36 AM EST ?[facility] ?[address] ?[place] [address] ?XRay Report ? Signed ? Patient: Holly,Omaira ?MR#: [id number] ? : 1965 ?Acct:[id number] ? Age/Sex: 59 / F ?ADM Date: 01/24/25 ? Loc: HO.HHCX ? Attending Dr: Arianna Engle MD ? Ordering Physician: Arianna Engle MD ?? Date of Service: 10/13/24 ?? Procedure(s): XR lumbar spine 2-3V ?? Accession Number(s): [id number] ? cc: Arianna Engle MD ? EXAMINATION: [...] DD/ 1039 ? TD/TT: 10/13/24 1052 ? Metal Numerical Control Programmer: ? Procedure Note Kristy, Image - 10/13/[address] [address] XRay Report Signed Patient: Jose Holly#: [id number] : 1965Acct:[id number] Age/Sex: 59 / FADM Date: 10/13/24 Loc: .HHCX Attending Dr: Arianna Engle MD Ordering Physician: Arianna Engle MD Date of Service: 10/13/24 Procedure(s): XR lumbar spine 2-3V Accession Number(s): [id number] cc: Arianna Engle MD EXAMINATION: XR LUMBOSACRAL [...] by: Burke Jeffers MD 10/13/2024 11:33 AM [facility] Dictated By: Burke Jeffers MD Signed By: <Electronically signed by Burke Jeffers MD in OV> 10/13/24 1133 DD/ 1039 TD/TT: 10/13/24 1052 Metal Numerical Control Programmer: Arianna Engle MD IMG XR PROCEDURES Final Re sult documented in this encounter Visit Diagnoses Diagnosis Acute right-sided low back pain with right-sided sciatica- Primary Right sided abdominal pain Abdominal pain, unspecified site documented in this encounter Additional Health Concerns Assessment Noted Time PHQ-9 Depression Total Score: 5 12/31/19 10:57 AM EDT documented as of this encounter Care Teams Passport Application Examiner Relationship Specialty Start Date End Date Heena Abbasi MD [address] [place] [address] PCP - General Family Medicine 09/05/12 Eli Higuera Purchasing AnalystMultiple Punch Press Operator 03/17/24 Eli Higuera Purchasing AnalystMultiple Punch Press Operator 10/05/24 documented as of this encounter
--- OUTSIDE RECORDS SUMMARY | 2024-10-13 12:10 | XMS_ITS | Encounter Summary ---
Author Organization [employer] Address 75 [facility] 7t [place] [address] Care Team Providers Care Supervisor Shearing Name Role Phone Heena Abbasi MD Primary Care Provider [phone] Encounter Details Date Type Department Care Team (Late Contact Info) Description 03/05/2023 Telephone [facility] CHC ADULT DENTAL [address] [place], [place] [phone] Anthony Arnold [address] [place], [place] [phone] Social History Tobacco Use Types Packs/Day Years [...] encounter Miscellaneous Notes * Telephone Encounter - Krysta Mederos - 03/05/2023 10:30 AM EDT Patient called in with her CARDIOVASCULAR TECHNICIAN from her coumadin clinic to report IN[facility] number of 3[facility]2. [facility] high and patient will not be able to be seen. Informed patient to call next week to check schedule for new appt date that will coincide with a new coumadin INR apptdate as well. Patient understood DR documented in this encounter Plan of Treatment Upcoming Encounters Date Type Department Care Team (Late Contact Info) Description 10/31/2024 10:30 AM EST Office Visit [facility] OPTOMETRY [address] [place] [address] Gregg Allegra, OD [address] [place] [address] 11/02/2024 9:00 AM EST Office Visit [facility] CHC ADULT DENTAL [address] [place] [address] Karen Shea documented as of this encounter Visit Diagnoses Not on filedocumented in this encounter Care Teams Supervisor Shearing Relationship Specialty Start Date End Date Heena Abbasi MD [address] [place] [address] PCP - General Family Medicine 09/05/12 Eli Higuera Bridges And Buildings SupervisorBobbin Doffer 03/17/24 Eli Higuera Bridges And Buildings SupervisorBobbin Doffer 10/05/24 documented as of this encounter
--- OUTSIDE RECORDS SUMMARY | 2024-10-13 12:10 | XMS_ITS | Encounter Summary ---
Author Organization [employer] Address 75 [facility] 7t [place] [address] Care Team Providers Care Profile Stitching Machine Operator Name Role Phone Heena Abbasi MD Primary Care Provider [phone] Reason for Visit * Reason Onset Date Comments pre tx medication 02/16/2023 Encounter Details Date Type Department Care Team (Late Contact Info) Description 02/16/2023 Telephone C CHC ADULT DENTAL [address] [place] [address] Socorro Auguste DDS pre tx medication Social History Tobacco Use Types Packs/Day Years [...] suspected to have Coronavirus/COVID-19? No / Unsure 01/19/2023 1:47 PM EDT documented as of this encounter Miscellaneous Notes * Telephone Encounter - Krysta Mederos - 02/16/2023 11:02 AM EDT Patient called in stating that she needs script for appt scheduled 03/05 for cleaning and exam. documented in this encounter Plan of Treatment Upcoming Encounters Date Type Department Care Team (Late Contact Info) Description 10/31/2024 10:30 AM EST Office Visit [facility] OPTOMETRY [address] [place] [address] Gregg Allegra, OD [address] [place] [address] 11/02/2024 9:00 AM EST Office Visit [facility] CHC ADULT DENTAL [address] [place] [address] Karen Shea documented as of this encounter Visit Diagnoses Not on filedocumented in this encounter Care Teams Profile Stitching Machine Operator Relationship Specialty Start Date End Date Heena Abbasi MD [address] [place] [address] PCP - General Family Medicine 09/05/12 Eli Higuera Senior Materials AnalystDrawer Maker 03/17/24 Eli Higuera Senior Materials AnalystDrawer Maker 10/05/24 documented as of this encounter
--- OUTSIDE RECORDS SUMMARY | 2024-10-13 12:10 | XMS_ITS | Encounter Summary ---
Author Organization [employer] Address 75 [facility] 7t [place] [address] Care Team Providers Care Regional Sales Associate Name Role Phone Heena Abbasi MD Primary Care Provider [phone] Reason for Visit * Reason Onset Date Comments Med Refill 03/30/2023 Encounter Details Date Type Department Care Team ([facility] st Contact Info) Description 03/30/2023 Telephone [facility] CHC MED & PEDS [address] [place], [place] [phone] Heena Abbasi MD [address] [place] [address] Med Refill Social History Tobacco Use Types [...] Telephone Encounter - Tiana Olvera RN - 03/31/2023 8:41 AM EDT Managed by [facility] coumadin clinic. Noted INR result of 3.0 dated 03/18/23. Please review request below and advise if needed. Thank you * Telephone Encounter - Brianne Olvera - 03/30/2023 4:37 PM EDT Tc from pt requesting medication refill on warfarin (Coumadin) 4 MG tablet documented in this encounter Plan of Treatment Upcoming Encounters Date Type Department Care Team (Late st Contact Info) Description 10/31/2024 10:30 AM EST Office Visit [facility] OPTOMETRY [address] [place] [address] Taralex Allegra, OD [address] [place] [address] 11/02/2024 9:00 AM EST Office Visit [facility] ADULT DENTAL [address] [place] [address] Karen Shea documented as of this encounter Visit Diagnoses Not on filedocumented in this encounter Care Teams Regional Sales Associate Relationship Specialty Start Date End Date Heena Abbasi MD [address] [place] [address] PCP - General Family Medicine 09/05/12 Eli Higuera Seat JoinerStreet Supervisor 03/17/24 Eli Higuera Seat JoinerStreet Supervisor 10/05/24 documented as of this encounter
--- OUTSIDE RECORDS SUMMARY | 2024-10-13 12:11 | XMS_ITS | Encounter Summary ---
Author Organization [employer] Address 75 [facility] 7t [place] [address] Care Team Providers Care Investigator Welfare Name Role Phone Heena Abbasi MD Primary Care Provider [phone] Reason for Visit * Reason Onset Date Comments Referral 05/17/2023 Encounter Details Date Type Department Care Team ([facility] st Contact Info) Description 05/17/2023 Telephone [facility] CHC MED & PEDS [address] [place], [place] [phone] Heena Abbasi MD [address] [place] [address] Referral Social History Tobacco Use Types Packs/Day [...] encounter Miscellaneous Notes * Telephone Encounter - Kenzie Jaimes - 05/17/2023 4:25 PM EDT TC and advised patient to call and book an appointment with provider to review justification for dermatology referral. * Telephone Encounter - Brianne Olvera - 05/17/2023 10:31 AM EDT Tc from [facility] ([facility]) requesting referral for pt. Location: [address] [place] J Santacruz [place] Date: n/a Time: n/a Specialty: plug cutter documented in this encounter Plan of Treatment Upcoming Encounters Date Type Department Care Team ([facility] st Contact Info) Description 10/31/2024 10:30 AM EST Office Visit [facility] OPTOMETRY [address] [place], [place] [phone] TarkaAllegra, OD [address] [place] [address] 11/02/2024 9:00 AM EST Office Visit [facility] CHC ADULT DENTAL [address] [place] [address] Karen Shea documented as of this encounter Visit Diagnoses Not on filedocumented in this encounter Care Teams Investigator Welfare Relationship Specialty Start Date End Date Heena Abbasi MD [address] [place] [address] PCP - General Family Medicine 09/05/12 Eli Higuera Photoengraving Etcher ApprenticeDirector Of Individual Giving 03/17/24 Eli Higuera Photoengraving Etcher ApprenticeDirector Of Individual Giving 10/05/24 documented as of this encounter
--- OUTSIDE RECORDS SUMMARY | 2024-10-13 12:11 | XMS_ITS | Encounter Summary ---
Author Organization [employer] Address 75 [facility] 7t [place] [address] Care Team Providers Care Estimator Binding Name Role Phone Heena Abbasi MD Primary Care Provider [phone] Reason for Visit * Reason Onset Date Comments Med Refill 06/09/2023 Encounter Details Date Type Department Care Team ([facility] st Contact Info) Description 06/09/2023 Telephone C [facility] MED [facility]EDS [address] [place], [place] [phone] Heena Abbasi MD [address] [place] [address] Med Refill Social History Tobacco Use Types [...] encounter Miscellaneous Notes * Telephone Encounter - Giacomo Madrigal - 06/18/2023 2:06 PM EDT TC from pt regarding medication below . Per message pt has refills at pharmacy . Vice Chancellor contacted pharmacy to confirm . [facility] had a system error that was corrected and patient will be picking up script later today . * Telephone Encounter - Mari Miller LPN - 06/09/2023 11:54 AM EDT 90 day supply was sent to [facility] #[id number] on 12/29/22 with 3 refills. * Telephone Encounter - Brianne Wade - 06/09/2023 11:27 AM EDT Tc from pt requesting medication refill on gemfibrozil (Lopid) 600 MG tablet to be sent to [facility]/pharmacy #[id number] - [place], [place] - [address] documented in this encounter Plan of Treatment Upcoming Encounters Date Type Department Care Team (Late st Contact Info) Description 10/31/2024 10:30 AM EST Office Visit [facility] OPTOMETRY [address] [place], [place] [phone] Allegra Escobedo, OD [address] [place], [place] [phone] 11/02/2024 9:00 AM EST Office Visit [facility] CHC ADULT DENTAL [address] [place] [address] Karen Shea documented as of this encounter Visit Diagnoses Not on filedocumented in this encounter Care Teams Estimator Binding Relationship Specialty Start Date End Date Heena Abbasi MD [address] [place] [address] PCP - General Family Medicine 09/05/12 Eli Higuera Unit AidHolistic Health Practitioner 03/17/24 Eli Higuera Unit AidHolistic Health Practitioner 10/05/24 documented as of this encounter
--- OUTSIDE RECORDS SUMMARY | 2024-10-13 12:11 | XMS_ITS | Encounter Summary ---
Author Organization [facility] [employer] Address 75 [facility] 7t [place] [address] Care Team Providers Care Floor Covering Installer Name Role Phone Heena Abbasi MD Primary Care Provider [phone] Encounter Details Date Type Department Care Team (Late st Contact Info) Description 09/28/2024 Orders Only GENERIC EXTERNAL DATA DEPARTMENT Provider, Generic External Data Social History Tobacco Use Types Packs/Day Years [...] Description 10/31/2024 10:30 AM EST Office Visit [facility] OPTOMETRY [address] [place], [place] [phone] Tarka, Allegra, OD [address] [place] [address] 11/02/2024 9:00 AM EST Office Visit [facility] CHC ADULT DENTAL [address] [place] [address] Karen Shea documented as of this encounter Procedures Procedure Name Priority Date/Time Associated Diagnosis Comments PROTHROMBIN TIME WHOLE BLD POC Routine 09/28/2024 10:21 AM EST ~PT, ~INR - ANTI COAG CLINIC Routine 09/28/2024 10:21 AM EST documented in this encounter Results * (ABNORMAL) PROTHROMBIN TIME WHOLE BLD POC (09/28/2024 10:21 AM EST) Protime 35.7(H) 11.1 - 13.5 sec [facility] 09/28/2024 10:2 1 AM EST 09/28/2024 10:55 AM EST us Generic External Data Provider LAB BLOOD ORDERAB LES Final Result [facility] [address] [place] [address] [phone] * (ABNORMAL) ~PT, ~INR - ANTI COAG CLINIC (09/28/2024 10:21 AM EST) Prothrombin Time INR 3.0(H) 0.9 - 1.1 [facility] Comment:METER #: [id number] TERNATIONAL NORMALIZED RATIO (INR) REFERENCE RANGES Reference [...] Provider LAB BLOOD ORDERAB LES Final Result [facility] [address] [place] [phone] documented in this encounter Visit Diagnoses Not on filedocumented in this encounter Additional Health Concerns Assessment Noted Time PHQ-9 Depression Total Score: 5 12/31/19 10:57 AM EDT documented as of this encounter Care Teams Floor Covering Installer Relationship Specialty Start Date End Date Heena Abbasi MD [address] [place] [address] PCP - General Family Medicine 09/05/12 Eli Higuera Punchboard Filling Machine OperatorAssignment Manager 03/17/24 documented as of this encounter
--- OUTSIDE RECORDS SUMMARY | 2024-10-13 12:11 | XMS_ITS | Encounter Summary ---
Author Organization [employer] Address 75 [facility] 7t [place] [address] Care Team Providers Care Signal Fitter Name Role Phone Heena Abbasi MD Primary Care Provider [phone] Reason for Visit * Reason Comments Care Coordination ICP care plan Encounter Details Date Type Department Care Team ([facility] st Contact Info) Description 10/05/2024 Telephone [facility] [address] [place] [address] Heena Abbasi MD [address] [place], [place] [phone] Care Coordination (ICP care plan) Social History Tobacco Use Types Packs/Day Years [...] AM EDT documented as of this encounter Progress Notes * Yadijuhi Mcelroy - 10/05/2024 1:28 PM EST PCP Designee has received and reviewed Care Plan from [facility]: Accordion Repairer: Eli Higuera Contact Information: [phone] Care Plan scanned into patient's EHR and notification sent to PCP. documented in this encounter Plan of Treatment Upcoming Encounters Date Type Department Care Team (Late st Contact Info) Description 10/31/2024 10:30 AM EST Office Visit [facility] OPTOMETRY [address] [place] [address] Allegra Escobedo, OD [address] [place] [address] 11/02/2024 9:00 AM EST Office Visit [facility] ADULT DENTAL [address] [place] [address] Karen Shea documented as of this encounter Visit Diagnoses Not on filedocumented in this encounter Additional Health Concerns Assessment Noted Time PHQ-9 Depression Total Score: 5 12/31/19 24 10:57 AM EDT documented as of this encounter Care Teams Signal Fitter Relationship Specialty Start Date End Date Heena Abbasi MD [address] [place] [address] [phone] PCP - General Family Medicine 09/05/[address] Truck DriverResolution Manager 03/17/[address] Truck DriverResolution Manager 10/05/24 documented as of this encounter
== END 2024-10-13 10:39 | disposition home or self-care (01) ==
LOC: HO.HHCX 10:38
PROVIDERS: Visit Provider Family Medicine
DX: M54.41 Lumbago with sciatica, right side (principal)
CPT/HCPCS: 72100

== ENCOUNTER → 2024-10-13 10:39 | Outpatient (BNV) | payer MEDICAID, SELFPAY | PROVIDERS: Visit Provider Radiology Diagnostic Radiology | DX: M51.360 Other intervertebral disc degeneration, lumbar region with discogenic back pain only (principal) | CPT/HCPCS: 72100 ==

== ENCOUNTER 2024-10-13 11:39 | Outpatient (REF) | payer MEDICAID, SELFPAY ==
[2024-10-13 13:31] LABS: MANUAL DIFF FLAG NO
[2024-10-13 13:37] LABS: Basophils Absolute Auto 0.1 X10*3/uL (0.0-0.2); Basophils Percent Auto 0.8 % (0-2); Eosinophils Absolute Auto 0.2 X10*3/uL (0.0-0.4); Eosinophils Percent Auto 1.9 % (0-4); Hematocrit 35.6 % (37.0-47.0); Hemoglobin 11.1 g/dl (12.0-16.0); Imm Gran Abs Auto 0.02 X10*3/uL (0.00-0.03); Imm Gran Pct Auto 0.3 % (0.0-0.4); Lymphocytes Absolute Auto 2.3 X10*3/uL (1.2-4.9); Lymphocytes Percent Auto 28.8 % (20-40); Mean Corpuscular HGB Conc 31.2 g/dl (31.0-35.0); Mean Corpuscular Hemoglobin 24.1 pg (27.0-33.0); Mean Corpuscular Volume 77.2 fL (80.0-98.0); Mean Platelet Volume 10.2 fL (9.4-12.3); Monocytes Absolute Auto 0.7 X10*3/uL (0.1-1.2); Monocytes Percent Auto 8.9 % (2-11); Neutrophils Absolute Auto 4.7 x10*3/uL (2.0-8.3); Neutrophils Percent Auto 59.3 % (45-73); Platelet Count 553 X10*3/uL (160-400); Red Blood Count 4.61 X10*6/uL (4.20-5.50); Red Cell Distribution Width 19.9 % (11.0-16.0); White Blood Count 7.9 X10*3/uL (4.8-10.8)
--- OUTSIDE RECORDS SUMMARY | 2024-10-13 13:51 | XMS_ITS | Encounter Summary ---
Author Organization [employer] Address 75 [facility] 7t [place] [address] Care Team Providers Care Funeral Director Name Role Phone Heena Abbasi MD Primary Care Provider [phone] Encounter Details Date Type Department Care Team (Latest Contact Info) Description 07/29/2022 Abstract [facility] CONVERSIONS Dental, Provider, DDS Social History [...] Description 10/31/2024 10:30 AM EST Office Visit [facility] OPTOMETRY [address] [place] [address] Tarka, Allegra, OD [address] [place] [address] 11/02/2024 9:00 AM EST Office Visit [facility] CHC ADULT DENTAL [address] [place] [address] Karen Shea documented as of this encounter Visit Diagnoses Not on filedocumented in this encounter Care Teams Funeral Director Relationship Specialty Start Date End Date Heena Abbasi MD [address] [place] [address] PCP - General Family Medicine 09/05/12 Eli Higuera Test Engine OperatorSafe Technician 03/17/24 Eli Higuera Test Engine OperatorSafe Technician 10/05/24 documented as of this encounter
--- OUTSIDE RECORDS SUMMARY | 2024-10-13 13:51 | XMS_ITS | Encounter Summary ---
Author Organization [employer] Address [address] [facility] [address] 7t [place] [address] Care Team Providers Care Hot Box Checker Name Role Phone Heena Abbasi MD Primary Care Provider [phone] Reason for Visit * Reason Comments Leg Pain Abdominal Pain Back Pain Arm Pain Encounter Details Date Type Department Care Team (Late st Contact Info) Description 10/13/2024 9:40 AM EST Office Visit [facility] [address] [place] [address] [phone] Arianna Engle MD [address] [place], [place] [phone] Acute right-sided low back pain with right-sided [...] months. -prescribed Lidocaine cream -ordered lumbar XR. IMPRESSION: 1. No acute findings of the lumbar spine. 2. Degenerative changes as discussed. Relevant Medications Lidocaine 5 % cream Other Relevant Orders CBC auto differential C-reactive Protein XR Lumbar Spine 2-3 Views (Completed) Right sided abdominal pain Unknown etiology. Ordered [...] months. -prescribed Lidocaine cream -ordered lumbar XR. IMPRESSION: 1. No acute findings of the lumbar spine. 2. Degenerative changes as discussed. * Assessment & Plan Note - Rashida Sands - 10/13/2024 10:18 AM ESTAssociated Problem(s): Right sided abdominal pain Unknown etiology. Ordered CBC and CRP. documented in this encounter Plan of Treatment Upcoming Encounters Date Type Department Care Team (Late st Contact Info) Description 10/31/2024 10:30 AM EST Office Visit [facility] OPTOMETRY [address] [place], [place] [phone] Allegra Escobedo, OD [address] [place] [address] 11/02/2024 9:00 AM EST Office Visit [facility] CHC ADULT DENTAL [address] [place], [place] [phone] Karen Shea Scheduled Orders Name Type Priority Associated Diagnoses Orde r Schedule C-reactive Protein Lab STAT Acute right-sided low back pain with right-sided sciatica Expected: 10/13/2024 (Approximate), Expires: 10/13/2025 documented as of this encounter Procedures Procedure Name Priority Date/Time Associated Diagnosis Comments CBC WITH AUTO DIFFERENTIAL STAT 10/13/2024 11:43 AM EST Acute right-sided low back pain with right-sided sciatica XR LUMBAR SPINE 2-3 VIEWS Routine 10/13/2024 10:39 AM EST Acute right-sided low back pain with right-sided sciatica documented in this encounter Results * (ABNORMAL) CBC auto differential (10/13/2024 11:43 AM EST) White Blood Count 7.9 4.8 - 10.8 X10*3/uL [facility] Red Blood Count 4.61 4.20 - 5.50 X10*6/uL [facility] Hemoglobin 11.1(L) 12.0 - 16.0 g/dl [facility] Hematocrit 35.6(L) 37.0 - 47.0 % [facility] Mean Corpuscular Volume 77.2(L) 80.0 - 98.0 fL [facility] Mean Corpuscular Hemoglobin 24.1(L) 27.0 - 33.0 pg [facility] Mean Corpuscular HGB Conc 31.2 31.0 - 35.0 g/dl [facility] Red Cell Distribution Width 19.9(H) 11.0 - 16.0 % [facility] Platelet Count 553(H) 160 - 400 X10*3/uL [facility] Mean Platelet Volume 10.2 9.4 - 12.3 fL [facility] Neutrophils Percent Auto 59.3 45 - 73 % [facility] Imm Gran Pct Auto 0.3 0.0 - 0.4 % [facility] Lymphocytes Percent Auto 28.8 20 - 40 % [facility] Monocytes Percent Auto 8.9 2 - 11 % [facility] Eosinophils Percent Auto 1.9 0 - 4 % [facility] Basophils Percent Auto 0.8 0 - 2 % [facility] NRBC Pct Auto 0.0 0.0 - 0.2 /100WBC [facility] Neutrophils Absolute Auto 4.7 2.0 - 8.3 x10*3/uL [facility] Imm Gran Abs Auto 0.02 0.00 - 0.03 X10*3/uL [facility] Lymphocytes Absolute Auto 2.3 1.2 - 4.9 X10*3/uL [facility] Monocytes Absolute Auto 0.7 0.1 - 1.2 X10*3/uL [facility] Eosinophils Absolute Auto 0.2 0.0 - 0.4 X10*3/uL [facility] Basophils Absolute Auto 0.1 0.0 - 0.2 X10*3/uL [facility] NRBC Abs Auto 0.000 0.0 - 0.012 X10*3/uL [facility] Blood Venous blood specimen / Unknown 10/13/2024 11:43 AM EST 10/13/2024 1:29 PM EST Arianna Engle MD LAB BLOOD ORDERABLES Final Result [facility] [address] [place] [address] [phone] * XR Lumbar Spine 2-3 Views (10/13/2024 10:39 AM EST) Anatomical Region Laterality Modality Spine, L-spine Radiographic Nerissa ging 10/13/2024 10:3 9 AM EST Narrative 10/13/2024 11:36 AM EST ?[facility] ?[address] ?[place] [address] ?XRay Report ? Signed ? Patient: Omaira Holly ?MR#: [id number] ? : 1965 ?Acct:[id number] ? Age/Sex: 59 / F ?ADM Date: 10/13/24 ? Loc: HO.HHCX ? Attending Dr: Arianna Engle MD ? Ordering Physician: Arianna Engle MD ?? Date of Service: 10/13/24 ?? Procedure(s): XR lumbar spine 2-3V ?? Accession Number(s): [id number] ? cc: Arianna Engle MD ? EXAMINATION: [...] signed by Burke Jeffers MD in OV> ?10/13/241132 ? DD/ 1039 ? TD/TT: 10/13/24 1052 ? Pe Electrical Engineer: ? Procedure Note Kristy, Amanda - 10/13/[address] [address] XRay Report Signed Patient: Omaira HollyMR#: [id number] : 1965Acct:[id number] Age/Sex: 59 / FADM Date: 10/13/24 Loc: HO.HHCX Attending Dr: Arianna Engle MD Ordering Physician: Arianna Engle MD Date of Service: 10/13/24 Procedure(s): XR lumbar spine 2-3V Accession Number(s): [id number] cc: Arianna Engle MD EXAMINATION: XR LUMBOSACRAL [...] Burke Jeffers MD 10/13/2024 11:33 AM EST Dictated By: Burke Jeffers MD Signed By: <Electronically signed by Burke Jeffers MD in OV> 10/13/24 1133 DD/ 1039 TD/TT: 10/13/24 1052 Pe Electrical Engineer: us Arianna Engle MD IMG XR PROCEDURES Final Re sult documented in this encounter Visit Diagnoses Diagnosis Acute right-sided low back pain with right-sided sciatica- Primary Right sided abdominal pain Abdominal pain, unspecified site documented in this encounter Additional Health Concerns Assessment Noted Time PHQ-9 Depression Total Score: 5 12/31/19 24 10:57 AM EDT documented as of this encounter Care Teams Hot Box Checker Relationship Specialty Start Date End Date Heena Abbasi MD [address] [place] [phone] PCP - General Family Medicine 09/05/12 Eli Higuera Manager MeetingCement Mixer Driver 03/17/24 Eli Higuera Manager MeetingCement Mixer Driver 10/05/24 documented as of this encounter
--- OUTSIDE RECORDS SUMMARY | 2024-10-13 13:51 | XMS_ITS | Encounter Summary ---
Author Organization [employer] Address 75 [facility] 7t [place] [address] Care Team Providers Care Technician Support Association Name Role Phone Heena Abbasi MD Primary Care Provider [phone] Encounter Details Date Type Department Care Team (Latest Contact Info) Description 11/21/2018 Abstract [facility] CONVERSIONS Dental, Provider, DDS Social History [...] Description 10/31/2024 10:30 AM EST Office Visit [facility] OPTOMETRY [address] [place] [address] Tarka, Allegra, OD [address] [place] [address] 11/02/2024 9:00 AM EST Office Visit [facility] CHC ADULT DENTAL [address] [place] [address] Karen Shea documented as of this encounter Visit Diagnoses Not on filedocumented in this encounter Care Teams Technician Support Association Relationship Specialty Start Date End Date Heena Abbasi MD [address] [place] [phone] PCP - General Family Medicine 09/05/12 Eli Higuera Curve Saw OperatorBroadcast Meteorologist 03/17/24 Eli Higuera Curve Saw OperatorBroadcast Meteorologist 10/05/24 documented as of this encounter
--- OUTSIDE RECORDS SUMMARY | 2024-10-13 13:51 | XMS_ITS | Encounter Summary ---
Author Organization [employer] Address 75 [facility] 7t [place] [address] Care Team Providers Care Intelligence Director Name Role Phone Heena Abbasi MD Primary Care Provider [phone] Reason for Visit * Reason Onset Date Comments Nurse Triage 07/12/2024 Encounter Details Date Type Department Care Team ([facility] st Contact Info) Description 07/12/2024 Telephone [facility] MEDICINE [address] [place] [address] Heena Abbasi MD [address] [place], [place] [phone] Nurse Triage Social History Tobacco Use Types [...] 12:29 PM EDT [place] [id number] Pt reports woke up with both eyes , crusty yellow exudate. Pt denies swelling, redness and sclera remains white. Pt reports mod amount of drainage and some itchiness. Pt is offered [facility] apt today but,declines would like to be seen tomorrow. Pt is advised to be seen in [facility] open till 8pm today, tomorrow 07/13/24 830am-400pm. [...] caller accepted this outcome. Please contact at [phone] Faroese documented in this encounter Plan of Treatment Upcoming Encounters Date Type Department Care Team (Late st Contact Info) Description 10/31/2024 10:30 AM EST Office Visit [facility] OPTOMETRY [address] [place] [address] TarkaAllegra, OD [address] [place] [address] 11/02/2024 9:00 AM EST Office Visit [facility] CHC ADULT DENTAL [address] [place] [address] Karen Shea documented as of this encounter Visit Diagnoses Not on filedocumented in this encounter Additional Health Concerns Assessment Noted Time PHQ-9 Depression Total Score: 5 12/31/19 24 10:57 AM EDT documented as of this encounter Care Teams Intelligence Director Relationship Specialty Start Date End Date Heena Abbasi MD [address] [place] [address] PCP - General Family Medicine 09/05/12 Eli Higuera BookieSap Trainer 03/17/24 documented as of this encounter
--- OUTSIDE RECORDS SUMMARY | 2024-10-13 13:51 | XMS_ITS | Encounter Summary ---
Author Organization [employer] Address 75 [facility] 7t [place] [address] Care Team Providers Care Dance Choreographer Name Role Phone Heena Abbasi MD Primary Care Provider [phone] Encounter Details Date Type Department Care Team (Late st Contact Info) Description 09/10/2022 Orders Only [facility] [address] [place], [place] [phone] Tierra Ashby LPN Social History Tobacco Use [...] 10:30 AM EST Office Visit [facility] OPTOMETRY [address] [place], [place] [phone] TarAllegra johnson, OD [address] [place], [place] [phone] 11/02/2024 9:00 AM EST Office Visit [facility] CHC ADULT DENTAL [address] [place] [address] Karen Shea documented as of this encounter Visit Diagnoses Not on filedocumented in this encounter Care Teams Dance Choreographer Relationship Specialty Start Date End Date Heena Abbasi MD [address] [place] [address] PCP - General Family Medicine 09/05/12 Eli Higuera Concrete Stone Finishing SupervisorAsbestos Shingle Roofer 03/17/24 Eli Higuera Concrete Stone Finishing SupervisorAsbestos Shingle Roofer 10/05/24 documented as of this encounter
--- OUTSIDE RECORDS SUMMARY | 2024-10-13 13:51 | XMS_ITS | Encounter Summary ---
Author Organization [employer] Address 75 [facility] 7t [place] [address] Care Team Providers Care Informatics Spec Name Role Phone Heean Abbasi MD Primary Care Provider [phone] Encounter Details Date Type Department Care Team (Late st Contact Info) Description 01/01/2023 Orders Only [facility] MED & PED[facility] [address] [place] [address] Heena Abbasi MD [address] [place] [address] Muscle spasm Social History Tobacco Use Types [...] Office Visit [facility] OPTOMETRY [address] [place] [address] Tarka, Allegra, OD [address] [place] [address] 11/02/2024 9:00 AM EST Office Visit [facility] ADULT DENTAL [address] [place] [address] Karen Shea documented as of this encounter Visit Diagnoses Diagnosis Muscle spasm Spasm of muscle documented in this encounter Care Teams Informatics Spec Relationship Specialty Start Date End Date Heena Abbasi MD [address] [place] [address] PCP - General Family Medicine 09/05/12 Eli Higuera Kiln Furniture Saw TenderCustom Feed Mill Operator 03/17/24 Eli Higuera Kiln Furniture Saw TenderCustom Feed Mill Operator 10/05/24 documented as of this encounter
--- OUTSIDE RECORDS SUMMARY | 2024-10-13 13:51 | XMS_ITS | Encounter Summary ---
Author Organization [employer] Address 75 [facility] 7t [place] [address] Care Team Providers Care Asl Interpreter Name Role Phone Heena Abbasi MD Primary Care Provider [phone] Reason for Visit * Reason Onset Date Comments Referral 07/29/2023 Encounter Details Date Type Department Care Team ([facility] st Contact Info) Description 07/29/2023 Telephone [facility] MEDICINE [address] [place] [address] Heena Abbasi MD [address] [place], [place] [phone] Referral Social History Tobacco Use Types Packs/Day [...] Description 10/31/2024 10:30 AM EST Office Visit [facility] OPTOMETRY [address] [place] [address] TarkaAllegra, OD [address] [place] [address] 11/02/2024 9:00 AM EST Office Visit [facility] CHC ADULT DENTAL [address] [place] [address] Karen Shea documented as of this encounter Visit Diagnoses Not on filedocumented in this encounter Care Teams Asl Interpreter Relationship Specialty Start Date End Date Heena Abbasi MD [address] [place] [address] PCP - General Family Medicine 09/05/12 Eli Higuera Data ProgrammerRetort Engineer 03/17/24 Eli Higuera Data ProgrammerRetort Engineer 10/05/24 documented as of this encounter
--- OUTSIDE RECORDS SUMMARY | 2024-10-13 13:51 | XMS_ITS | Encounter Summary ---
Author Organization [employer] Address 75 [facility] 7t [place] [address] Care Team Providers Care Sliding Joint Maker Name Role Phone Heena Abbasi MD Primary Care Provider [phone] Encounter Details Date Type Department Care Team (Late st Contact Info) Description 12/09/2022 Orders Only [facility] [address] [place] [address] Heena Abbasi MD [address] [place] [address] Social History Tobacco Use Types Packs/Day Years [...] Description 10/31/2024 10:30 AM EST Office Visit [facility] OPTOMETRY [address] [place] [address] Tarka, Allegra, OD [address] [place] [address] 11/02/2024 9:00 AM EST Office Visit [facility] ADULT DENTAL 505 [place] [address] Karen Shea documented as of this encounter Visit Diagnoses Not on filedocumented in this encounter Care Teams Sliding Joint Maker Relationship Specialty Start Date End Date Heena Abbasi MD [address] [place] [address] PCP - General Family Medicine 09/05/12 Eli Higuera Snack Foods Mixer OperatorBlock Hacker 03/17/24 Eli Higuera Snack Foods Mixer OperatorBlock Hacker 10/05/24 documented as of this encounter
--- OUTSIDE RECORDS SUMMARY | 2024-10-13 13:51 | XMS_ITS | Encounter Summary ---
Author Organization [employer] Address 75 [facility] 7t [place] [address] Care Team Providers Care Notched Blade Loader Name Role Phone Heena Abbasi MD Primary Care Provider Reason for Visit * Reason Onset Date Comments Med Refill 03/30/2023 Encounter Details Date Type Department Care Team ([facility] st Contact Info) Description 03/30/2023 Telephone [facility] MED & PEDS [address] [place], [place] [phone] Heena Abbasi MD [address] [place] [address] Med Refill Social History Tobacco Use Types [...] - 03/31/2023 8:41 AM EDT Managed by [facility] coumadin [facility]. Noted INR result of 3.0 [...] Description 10/31/2024 10:30 AM EST Office Visit [facility] OPTOMETRY [address] [place] [address] Taralex Allegra, OD [address] [place] [address] 11/02/2024 9:00 AM EST Office Visit [facility] ADULT DENTAL [address] [place] [address] Karen Shea documented as of this encounter Visit Diagnoses Not on filedocumented in this encounter Care Teams Notched Blade Loader Relationship Specialty Start Date End Date Heena Abbasi MD [address] [place] [address] PCP - General Family Medicine 09/05/12 Eli Higuera Arranger AssemblerCareer And Technology Education Teacher 03/17/24 Eli Higuera Arranger AssemblerCareer And Technology Education Teacher 10/05/24 documented as of this encounter
--- OUTSIDE RECORDS SUMMARY | 2024-10-13 13:51 | XMS_ITS | Encounter Summary ---
Author Organization [employer] Address [address] [facility] [address] 7[address] [place] [address] Care Team Providers Care Ross Furnace Operator Name Role Phone Heena Abbasi MD Primary Care Provider [phone] Encounter Details Date Type Department Care Team (Late st Contact Info) Description 02/29/2024 Telephone [facility] ADULT DENTAL [address] [place] [address] Perri Noble, SOREN Social History Tobacco Use [...] Description 10/31/2024 10:30 AM EST Office Visit [facility] OPTOMETRY [address] [place] [address] Allegra Escobedo, OD [address] [place] [address] 11/02/2024 9:00 AM EST Office Visit [facility] CHC ADULT DENTAL [address] [place] [address] Karen Shea documented as of this encounter Visit Diagnoses Not on filedocumented in this encounter Additional Health Concerns Assessment Noted Time PHQ-9 Depression Total Score: 5 12/31/19 24 10:57 AM EDT documented as of this encounter Care Teams Ross Furnace Operator Relationship Specialty Start Date End Date Heena Abbasi MD [address] [place] [address] PCP - General Family Medicine 09/05/12 Eli Higuera Cooking Casing And Drying SupervisorCondominium Association Manager 03/17/24 Eli Higuera Cooking Casing And Drying SupervisorCondominium Association Manager 10/05/24 documented as of this encounter
--- OUTSIDE RECORDS SUMMARY | 2024-10-13 13:51 | XMS_ITS | Encounter Summary ---
Author Organization [employer] Address [address] [facility] 7t [place] [address] Care Team Providers Care Parking Regulation Enforcement Officer Name Role Phone Heena Abbasi MD Primary Care Provider [phone] Reason for Visit * Reason Onset Date Comments Med Refill 12/30/2022 Encounter Details Date Type Department Care Team (Late st Contact Info) Description 12/30/2022 Telephone [facility] MEDICINE [address] [place] [address] Heena Abbasi MD [address] [place] [address] Med Refill Social History Tobacco Use Types [...] PM EDT Pt managed by [facility]. Noted INR of 3.0 on [...] Description 10/31/2024 10:30 AM EST Office Visit [facility] OPTOMETRY [address] [place] [address] Allegra Escobedo, OD [address] [place] [address] 11/02/2024 9:00 AM EST Office Visit [facility] CHC ADULT DENTAL [address] [place] [address] Karen Shea documented as of this encounter Visit Diagnoses Not on filedocumented in this encounter Care Teams Parking Regulation Enforcement Officer Relationship Specialty Start Date End Date Heena Abbasi MD [address] [place] [phone] PCP - General Family Medicine 09/05/12 Eli Higuera Distributed Energy Systems ConsultantHand Roller 03/17/24 Eli Higuera Distributed Energy Systems ConsultantHand Roller 10/05/24 documented as of this encounter
--- OUTSIDE RECORDS SUMMARY | 2024-10-13 13:51 | XMS_ITS | Clinical Summary ---
Author Organization [employer] Address [address] [facility] 7t [place] [address] Care Team Providers Care Ct Tech Name Role Phone Heena Abbasi MD Primary Care Provider [phone] Allergies No known active allergies Medications ketotifen [...] ELIO TABLETA TODOS [facility] 30 tablet 2 4 Active traZODone (Desyrel) 50 MG tabletIndications :Insomnia, unspecified type TAKE 1 TABLET BY MOUTH AT BEDTIME 30 tablet 2 4 Active Diclofenac Sodium 1 % gelIndications:Ac [place] bilateral low back pain, unspecified whether sciatica [...] right-sided sciatica 10/13/2024 Assessment & Plan (10/13/2024 12:19 PM EST): Ongoing x3 months. -prescribed Lidocaine cream -ordered lumbar XR. IMPRESSION: 1. No acute findings of the lumbar spine. 2. Degenerative changes as discussed. Right sided abdominal pain 10/13/2024 Assessment & Plan (10/13/2024 10:18 AM EST): Unknown etiology. Ordered CBC and CRP. Acute bilateral low back pain 02/18/2024 Assessment & Plan (02/18/2024 1:54 PM EDT): Likely muscle spasm, I advise to apply heat on affected area Gentle stretching Short course of flexeril, I consumer credit counselor about side effect somnolence Acetaminophen 1300mg [...] Description 10/13/2024 9:40 AM EST Office Visit [facility] [address] [place] [address] Arianna Engle MD Acute right-sided low back pain with right-sided sciatica (Primary Dx); Right sided abdominal pain 10/05/2024 Telephone [facility] [address] [place] [address] Heena Abbasi MD Care Coordination (ICP care plan) 09/28/2024 Orders Only GENERIC EXTERNAL DATA DEPARTMENT Provider, Generic External Data 09/08/2024 Refill [facility] [address] [place] [address] Heena Abbasi MD Chronic atrial fibrillation ([facility]/HCC) 08/31/2024 Orders Only GENERIC EXTERNAL DATA DEPARTMENT Provider, Generic External Data 08/03/2024 Orders Only GENERIC EXTERNAL DATA DEPARTMENT Provider, Generic External Data 07/17/2024 Refill [facility] [address] [place] [address] Heena Abbasi MD GERD without esophagitis 07/14/2024 11:00 AM EDT Office Visit [facility] [address] [address] Heena Abbasi MD Back muscle spasm (Primary [...] 10:30 AM EST Office Visit [facility] [address] [place], [place] [phone] Allegra Escobedo, OD [address] [place], [place] [phone] 11/02/2024 9:00 AM EST Office Visit [facility] [address] [place], [place] [phone] Karen Shea Health Maintenance Due Date Last [...] Screening 12/30/2024 12/31/2023, 12/31/19 Mammogram 04/20/2025 04/20/2024, 03/20, 03/06/2022 Tobacco Screening 10/13/2025 10/13/2024 Dental X-Ray: Full Mouth 12/14/2026 12/14/2023, 12/2018 Colorectal Cancer Screening 01/10/2027 FIT DNA/Cologuard 01/10/2027 [...] Recently Relevant to Health Maintenance Results * (ABNORMAL) CBC auto differential (10/13/2024 11:43 AM EST) White Blood Count 7.9 4.8 - 10.8 X10*3/uL [facility] Red Blood Count 4.61 4.20 - 5.50 X10*6/uL [facility] Hemoglobin 11.1(L) 12.0 - 16.0 g/dl [facility] Hematocrit 35.6(L) 37.0 - 47.0 % [facility] Mean Corpuscular Volume 77.2(L) 80.0 - 98.0 fL [facility] Mean Corpuscular Hemoglobin 24.1(L) 27.0 - 33.0 pg [facility] Mean Corpuscular HGB Conc 31.2 31.0 - 35.0 g/dl [facility] Red Cell Distribution Width 19.9(H) 11.0 - 16.0 % [facility] Platelet Count 553(H) 160 - 400 X10*3/uL [facility] Mean Platelet Volume 10.2 9.4 - 12.3 fL [facility] Neutrophils Percent Auto 59.3 45 - 73 % [facility] Imm Gran Pct Auto 0.3 0.0 - 0.4 % [facility] Lymphocytes Percent Auto 28.8 20 - 40 % [facility] Monocytes Percent Auto 8.9 2 - 11 % [facility] Eosinophils Percent Auto 1.9 0 - 4 % [facility] Basophils Percent Auto 0.8 0 - 2 % [facility] NRBC Pct Auto 0.0 0.0 - 0.2 /100WBC [facility] Neutrophils Absolute Auto 4.7 2.0 - 8.3 x10*3/uL [facility] Imm Gran Abs Auto 0.02 0.00 - 0.03 X10*3/uL [facility] Lymphocytes Absolute Auto 2.3 1.2 - 4.9 X10*3/uL [facility] Monocytes Absolute Auto 0.7 0.1 - 1.2 X10*3/uL [facility] Eosinophils Absolute Auto 0.2 0.0 - 0.4 X10*3/uL [facility] Basophils Absolute Auto 0.1 0.0 - 0.2 X10*3/uL [facility] NRBC Abs Auto 0.000 0.0 - 0.012 X10*3/uL [facility] Blood Venous blood specimen / Unknown 10/13/2024 11:43 AM EST 10/13/2024 1:29 PM EST us Arianna Engle MD LAB BLOOD ORDERABLES Final Result [facility] [address] [facility] [place] [phone] * XR Lumbar Spine 2-3 Views (10/13/2024 10:39 AM EST) Anatomical Region Laterality Modality Spine, L-spine Radiographic Nerissa ging 10/13/2024 10:3 9 AM EST Narrative 10/13/2024 11:36 AM EST ?[facility] ?[address] ?[place] [address] ?XRay Report ? Signed ? Patient: [place],Omaira ?MR#: [id number] ? : 1965 ?Acct:[id number] ? Age/Sex: 59 / F ?ADM Date: 10/13/24 ? Loc: HO.HHCX ? Attending Dr: Arianna Engle MD ? Ordering Physician: Arianna Engle MD ?? Date of Service: 10/13/24 ?? Procedure(s): XR lumbar spine 2-3V ?? Accession Number(s): [id number] ? cc: Arianna Engle MD ? EXAMINATION: [...] DD/ 1039 ? TD/TT: 10/13/24 1052 ? Transit Department Clerk: ? Procedure Note Donotearlinterpreter, Image - 10/13/2024 [facility] [address] [place] [address] XRay Report Signed Patient: Omaira HollyMR#: [id number] : 1965Acct:[id number] Age/Sex: 59 / FADM Date: 10/13/24 Loc: HO.HHCX Attending Dr: Arianna Engle MD Ordering Physician: Arianna Engle MD Date of Service: 10/13/24 Procedure(s): XR lumbar spine 2-3V Accession Number(s): [id number] cc: Arianna Engle MD EXAMINATION: XR LUMBOSACRAL [...] 10/13/24 1133 DD/ 1039 TD/TT: 10/13/24 1052 Transit Department Clerk: us Arianna Engle MD IMG XR PROCEDURES Final Re sult * (ABNORMAL) PROTHROMBIN TIME WHOLE BLD POC (09/28/2024 10:21 AM EST) Only the most recent of3 resultswithin the time period is included. Protime 35.7(H) 11.1 - 13.5 sec [facility] 09/28/2024 10:2 1 AM EST 09/28/2024 10:55 AM EST Generic External Data Provider LAB BLOOD ORDERAB LES Final Result Performing Organization Address [facility]/ZIP Co de Phone Number [facility] [address] [place] [phone] * (ABNORMAL) ~PT, ~INR - ANTI COAG CLINIC (09/28/2024 10:21 AM EST) Only the most recent of3 resultswithin the time period is included. Prothrombin Time INR 3.0(H) 0.9 - 1.1 [facility] Comment:METER #: [id number] TERNATIONAL NORMALIZED RATIO (INR) REFERENCE RANGES Reference [...] 1 AM EST 09/28/2024 10:55 AM EST Generic External Data Provider LAB BLOOD ORDERAB LES Final Result Performing Organization Address [facility]/ZIP Co de Phone Number [facility] [address] [place] [phone] * BI Mammogram Screening Tomosynthesis Bilateral (04/20/2024 9:00 AM EDT) Anatomical Region Laterality Modality Breast Bilateral Mammography 04/20/2024 9:00 AM EDT Narrative 05/15/2024 2:28 AM EDT ? [facility] ? [address] [place] [address] ? Mammography Report ? Signed ? Patient: Holly,Omaira ?MR#: [id number] ? : 1965 ?Acct:[id number] ? Age/Sex: 59 / F ?ADM Date: 04/20/24 ? Loc: HO.MAMMO ? Attending Dr: Heena Abbasi MD ? Ordering Physician: Heena Abbasi MD ?Results: 1Negati ?? ve ? Date of Service: 04/20/24 ?Follow Up: 1 Year From Orig ?? inal Mammogram ? Procedure(s): MM tomosynthesis screening BI ?? Accession Number(s): [id number] ? cc: Heena Abbasi MD ? EXAMINATION: [...] by Lacey Michelle MD in OV> ? 05/15/244 ? DD/ 0900 ? TD/TT: 04/20/24 0915 ? Transit Department Clerk: ? Procedure Note Kristy, Image - 05/15/2024 [facility] [address] [place] [address] Mammography Report Signed Patient: Omaira HollyMR#: [id number] : 1965Acct:[id number] Age/Sex: 59 / FADM Date: 04/20/24 Loc: HO.MAMMO Attending Dr: Heena Abbasi MD Ordering Physician: Heena Abbasi MDResults: 1Negati ve Date of Service: 04/20/24Follow Up: 1 Year From Orig inal Mammogram Procedure(s): MM tomosynthesis screening BI Accession Number(s): [id number] cc: Heena Abbasi MD EXAMINATION: MM SCREENING DIGITAL BREAST TOMOSYNTHESIS, BILATERAL CLINICAL INFORMATION: Screening. Asymptomatic. COMPARISON: Mammography: This study is compared with prior exams dating back to 2022. TECHNIQUE: Digital breast tomosynthesis is performed in [...] Lacey Michelle MD 05/15/2024 02:24 AM EDT RP Dictated By: Lacey Michelle MD Signed By: <Electronically signed by Lacey Michelle MD in OV> 05/15/24223 DD/ 9 TD/TT: 04/20/24914 Transit Department Clerk: Heena Abbasi MD IMG BI PROCEDURES Final Result * (ABNORMAL) Lipid Panel, Standard (02/15/2024 10:47 AM EDT) Triglycerides 55 <150 mg/dL [facility] Comment:Desirable Triglyceri de: less than 150 mg/dLBorderline High Triglyceride 150-199 mg/dLHigh Triglyceride: 200-499 mg/dLVery High Triglyceride: greater than or equal to 5OO mg/dL Cholesterol 175 <200 mg/dL [facility] Comment:Desirable Cholestero l: less than 200 mg/dLBorderline High Cholesterol: 200-239 mg/dLHigh Cholesterol: greater than 239 mg/dL LDL Cholesterol Calculated 101(H) <100 mg/dL [facility] Comment:Desirable LDL: less than 100 mg/dLNear Optimal/Above Optimal LDL: 110- 129 mg/dLBorderline High LDL: 130-159 mg/dLHigh LDL: 160-189 mg/dLVery High LDL: greater than or equal to 190 mg/dL HDL Cholesterol 63 >40 mg/dL [facility] Comment:Desirable HDL: great er than 40 mg/dL Note: This HDL assay may give artificially low results in patients with liver disease. Blood Venous blood specimen / Unknown 02/15/2024 10:47 AM EDT 02/15/2024 10:47 AM EDT us Heena Abbasi MD LAB BLOOD ORDERABLES Final Resul t [facility] [address] [place] [phone] * Cologuard?? colon cancer screening (01/11/2024 9:45 AM EDT) Cologuard Result Negative Negative 01/20/20 12:00 PM EDT [facility] (CLIA #:[id number]) Comment: NEGATIVE TEST RESULT. A negative Cologuard [...] cancer. ??Following a negative Cologuard result, the [place] Cancer Society and U.S. Multi-Society Task Force screening guidelines recommend a Cologuard re-screening interval of 3 years. References: [place] [employer] Society Guideline for Colorectal Cancer Screening: https://www.cancer.org/cancer/ehajb-gzjceh-sluurd/egpmtixwg-vygwvyfvb-gpjrjsy/ac s-rec ommendations.html.; Dane DK, Feroz CR, Lauro McdanielK, Colorectal Cancer Screening: Recommendations for Physicians and Patients from the U.S. Multi-Society Task Force on Colorectal Cancer Screening , Am J Gastroenterology 2017; 112:7331-0314. TEST DESCRIPTION: Composite algorithmic analysis of stool [...] (Mando Sidhu al, N Engl J Med 2014;370(14):4272-5922.) Cologuard may produce a false negative or false positive result (no colorectal cancer or precancerous polyp present at colonoscopy follow up). A negative Cologuard test result does not guarantee the absence of CRC or advanced adenoma (pre-cancer). The current Cologuard screening interval is every 3 years. ([place] Cancer Society and U.S. Multi-Society Task Force). Cologuard performance data in a 10,000 patient pivotal study using colonoscopy as the reference method can be accessed at the following location: www.Farehelper/results. Additional description of the Cologuard test process, warnings and precautions can be found at www.Oshiboreerd.com. Stool specimen (specimen) 01/11/2024 9:45 AM EDT 01/13/2024 10:47 AM EDT us Heena Abbasi MD LAB MOLECULAR DIAGNOSTICS MARY OMALLEY Final Result [facility] (CLIA #:[id number]) [place] [address], [place] [phone] from Last 3 Months or Most Recently Relevant to Health Maintenance Insurance C3 DENTAL-[facility] MEDICAID STAND ADULT DENTAL-[facility] MEDICAID STAND ADULT Care Teams Ct Tech Relationship Specialty Start Date End Date Heena Abbasi MD [address] [place] [phone] PCP - General Family Medicine 09/05/12 Eli Higuera Belt Loop MakerDouper 03/17/24 Eli Higuera Belt Loop MakerDouper 10/05/24
--- OUTSIDE RECORDS SUMMARY | 2024-10-13 13:51 | XMS_ITS | Encounter Summary ---
Author Organization [employer] Address [address] [facility] 7t [place] [address] Care Team Providers Care Mini Lab Operator Name Role Phone Heena Abbasi MD Primary Care Provider [phone] Encounter Details Date Type Department Care Team (Late st Contact Info) Description 12/31/2023 Orders Only [facility] [address] [place], [place] [phone] Heena Abbasi MD [address] [place], [place] [phone] Social History Tobacco Use Types Packs/Day Years [...] Office Visit [facility] OPT[facility] [address] [place] [address] Allegra Escobedo, OD [address] [place] [address] 11/02/2024 9:00 AM EST Office Visit [facility] [address] [place] [address] Karen Shea documented as of this encounter Visit Diagnoses Not on filedocumented in this encounter Additional Health Concerns Assessment Noted Time PHQ-9 Depression Total Score: 5 12/31/19 24 10:57 AM EDT documented as of this encounter Care Teams Mini Lab Operator Relationship Specialty Start Date End Date Heena Abbasi MD [address] [place] [address] PCP - General Family Medicine 09/05/12 Eli Higuera Mail Machine OperatorCryptologic Technician Technical 03/17/24 Eli Higuera Mail Machine OperatorCryptologic Technician Technical 10/05/24 documented as of this encounter
--- OUTSIDE RECORDS SUMMARY | 2024-10-13 13:51 | XMS_ITS | Encounter Summary ---
Author Organization [employer] Address [address] [facility] 7t [place] [address] Care Team Providers Care Media Relations Specialist Name Role Phone Heena Abbasi MD Primary Care Provider [phone] Encounter Details Date Type Department Care Team (Late st Contact Info) Description 04/05/2023 Orders Only [facility] [address] [place] [address] Heena Abbasi MD [address] [place] [address] Social History Tobacco Use Types Packs/Day Years [...] Description 10/31/2024 10:30 AM EST Office Visit [facility] OPT[facility]ETRY [address] [place] [address] Tarka, Allegra, OD [address] [place] [address] 11/02/2024 9:00 AM EST Office Visit [facility] ADULT DENTAL [address] [place] [address] Karen Shea documented as of this encounter Visit Diagnoses Not on filedocumented in this encounter Care Teams Media Relations Specialist Relationship Specialty Start Date End Date Heena Abbasi MD [address] [place] [phone] PCP - General Family Medicine 09/05/12 Eli Higuera Distribution A Class LinemanStaff Command And Control Officer 03/17/24 Eli Higuera Distribution A Class LinemanStaff Command And Control Officer 10/05/24 documented as of this encounter
--- OUTSIDE RECORDS SUMMARY | 2024-10-13 13:52 | XMS_ITS | Encounter Summary ---
Author Organization [employer] Address [address] [facility] 7t [place] [address] Care Team Providers Care Natural Foods Clerk Name Role Phone Heena Abbasi MD Primary Care Provider [phone] Encounter Details Date Type Department Care Team [...] Description 10/31/2024 10:30 AM EST Office Visit [facility] OPTOMETRY [address] [place], [place] [phone] Tarka, Allegra, OD [address] [place] [address] 11/02/2024 9:00 AM EST Office Visit [facility] CHC ADULT DENTAL [address] [place] [address] Karen Shea documented as of this encounter Procedures Procedure Name Priority Date/Time Associated Diagnosis Comments PROTHROMBIN TIME WHOLE BLD POC Routine 09/28/2024 10:21 AM EST ~PT, ~INR - ANTI COAG CLINIC Routine 09/28/2024 10:21 AM EST documented in this encounter Results * (ABNORMAL) PROTHROMBIN TIME WHOLE BLD POC (09/28/2024 10:21 AM EST) Protime 35.7(H) 11.1 - 13.5 sec [facility] 09/28/2024 10:2 1 AM EST 09/28/2024 10:55 AM EST us Generic External Data Provider LAB BLOOD ORDERAB LES Final Result [facility] [address] [place] [address] [phone] * (ABNORMAL) ~PT, ~INR - ANTI COAG CLINIC (09/28/2024 10:21 AM EST) Prothrombin Time INR 3.0(H) 0.9 - 1.1 [facility] Comment:METER #: [id number] TERNATIONAL NORMALIZED RATIO (INR) REFERENCE RANGES Reference [...] Provider LAB BLOOD ORDERAB LES Final Result [facility] [address] [place] [phone] documented in this encounter Visit Diagnoses Not on filedocumented in this encounter Additional Health Concerns Assessment Noted Time PHQ-9 Depression Total Score: 5 12/31/19 10:57 AM EDT documented as of this encounter Care Teams Natural Foods Clerk Relationship Specialty Start Date End Date Heena Abbasi MD [address] [place] [address] PCP - General Family Medicine 09/05/12 Eli Higuera Cellophane Press OperatorAsphalt Patcher 03/17/24 documented as of this encounter
--- OUTSIDE RECORDS SUMMARY | 2024-10-13 13:52 | XMS_ITS | Encounter Summary ---
Author Organization [employer] Address [address] [facility] 7t [place] [address] Care Team Providers Care Sales Assistant Entertainment And Media Name Role Phone Heena Abbasi MD Primary Care Provider [phone] Reason for Visit * Reason Onset Date Comments Med Refill 06/09/2023 Encounter Details Date Type Department Care Team ([facility] st Contact Info) Description 06/09/2023 Telephone [facility] [address] [place], [place] [phone] Heena Abbasi MD [address] [place] [address] Med Refill Social History Tobacco Use Types [...] message pt has refills at pharmacy . Group Insurance Special Agent contacted pharmacy to confirm . [facility] had a system error that was corrected and patient will be picking up script later today . * Telephone Encounter - Mari Miller LPN - 06/09/2023 11:54 AM EDT 90 day supply was sent to [facility] #[id number] on 12/29/22 with 3 refills. * Telephone Encounter - Brianne Wade - 06/09/2023 11:27 AM EDT Tc from pt requesting medication refill on gemfibrozil (Lopid) 600 MG tablet to be sent to [facility]/pharmacy #[id number] - [place], [place] - [address] documented in this encounter Plan of Treatment Upcoming Encounters Date Type Department Care Team (Late st Contact Info) Description 10/31/2024 10:30 AM EST Office Visit [facility] OPTOMETRY [address] [place], [place] [phone] Allegra Escobedo, OD [address] [place], [place] [phone] 11/02/2024 9:00 AM EST Office Visit [facility] CHC ADULT DENTAL [address] [place] [address] Karen Shea documented as of this encounter Visit Diagnoses Not on filedocumented in this encounter Care Teams Sales Assistant Entertainment And Media Relationship Specialty Start Date End Date Heena Abbasi MD [address] [place] [address] PCP - General Family Medicine 09/05/12 Eli Higuera Consultant TeacherDirector Skills 03/17/24 Eli Higuera Consultant TeacherDirector Skills 10/05/24 documented as of this encounter
--- OUTSIDE RECORDS SUMMARY | 2024-10-13 13:52 | XMS_ITS | Encounter Summary ---
Author Organization [employer] Address [address] [facility] 7t [place] [address] Care Team Providers Care Sanitation Supervisor Name Role Phone Heena Abbasi MD Primary Care Provider [phone] Encounter Details Date Type Department Care Team (Late Contact Info) Description 03/05/2023 Telephone [facility] ADULT DENTAL [address] [place], [place] [phone] Anthony Arnold [address] [place], [place] [phone] Social History Tobacco Use Types Packs/Day Years [...] AM EDT Patient called in with her MILIEU COORDINATOR from her coumadin clinic to report INR number of 3.2. [facility] number [facility] high and patient [...] Description 10/31/2024 10:30 AM EST Office Visit [facility] OPTOMETRY [address] [place] [address] Gregg Allegra, OD [address] [place] [address] 11/02/2024 9:00 AM EST Office Visit [facility] ADULT DENTAL [address] [place] [address] Karen Shea documented as of this encounter Visit Diagnoses Not on filedocumented in this encounter Care Teams Sanitation Supervisor Relationship Specialty Start Date End Date Heena Abbasi MD [address] [place] [address] PCP - General Family Medicine 09/05/12 Eli Higuera Rigging ManShoe Lining Fitter 03/17/24 Eli Higuera Rigging ManShoe Lining Fitter 10/05/24 documented as of this encounter
--- OUTSIDE RECORDS SUMMARY | 2024-10-13 13:52 | XMS_ITS | Encounter Summary ---
Author Organization [employer] Address [address] [facility] 7t [place] [address] Care Team Providers Care Power System Engineer Name Role Phone Heena Abbasi MD Primary Care Provider [phone] Reason for Visit * Reason Onset Date Comments Referral 05/17/2023 Encounter Details Date Type Department Care Team ([facility] st Contact Info) Description 05/17/2023 Telephone [facility] MED & PEDS [address] [place], [place] [phone] Heena Abbasi MD [address] [place] [address] Referral Social History Tobacco Use Types Packs/Day [...] 05/17/2023 10:31 AM EDT Tc from candie ([facility]) requesting referral for pt. Location: [address] [place] J Santacruz [place] Date: n/a Time: n/a Specialty: classics teacher documented in this encounter Plan of Treatment Upcoming Encounters Date Type Department Care Team ([facility] st Contact Info) Description 10/31/2024 10:30 AM EST Office Visit [facility] OPTOMETRY [address] [place], [place] [phone] TarkaAllegra, OD [address] [place] [address] 11/02/2024 9:00 AM EST Office Visit [facility] CHC ADULT DENTAL [address] [place] [address] Karen Shea documented as of this encounter Visit Diagnoses Not on filedocumented in this encounter Care Teams Power System Engineer Relationship Specialty Start Date End Date Heena Abbasi MD [address] [place] [address] PCP - General Family Medicine 09/05/12 Eli Higuera It Security Consulting DirectorFunctional Consultant 03/17/24 Eli Higuera It Security Consulting DirectorFunctional Consultant 10/05/24 documented as of this encounter
--- OUTSIDE RECORDS SUMMARY | 2024-10-13 13:52 | XMS_ITS | Encounter Summary ---
Author Organization [employer] Address [address] [facility] 7t [place] [address] Care Team Providers Care Nitroglycerin Separator Operator Name Role Phone Heena Abbasi MD Primary Care Provider [phone] Reason for Visit * Reason Onset Date Comments pre tx medication 02/16/2023 Encounter Details Date Type Department Care Team (Late Contact Info) Description 02/16/2023 Telephone [facility] [address] [place] [address] Socorro Auguste DDS pre tx medication Social [...] Description 10/31/2024 10:30 AM EST Office Visit [facility] OPT[facility] [address] [place] [address] Gregg Allegra, OD [address] [place] [address] 11/02/2024 9:00 AM EST Office Visit [facility] ADULT DENTAL [address] [place] [address] Karen Shea documented as of this encounter Visit Diagnoses Not on filedocumented in this encounter Care Teams Nitroglycerin Separator Operator Relationship Specialty Start Date End Date Heena Abbasi MD [address] [place] [id number] PCP - General Family Medicine 09/05/12 Eli Higuera Shear SetterExcellence Leader 03/17/24 Eli Higuera Shear SetterExcellence Leader 10/05/24 documented as of this encounter
--- OUTSIDE RECORDS SUMMARY | 2024-10-13 13:52 | XMS_ITS | Encounter Summary ---
Author Organization [employer] Address [address] [facility] 7t [place] [address] Care Team Providers Care Personal Investment Adviser Name Role Phone Heena Abbasi MD Primary Care Provider [phone] Reason for Visit * Reason Comments Care Coordination ICP care plan Encounter Details Date Type Department Care Team ([facility] st Contact Info) Description 10/05/2024 Telephone [facility] MEDICINE [address] [place] [address] Heena Abbasi MD [address] [place], [place] [phone] Care Coordination (ICP care plan) Social History [...] and reviewed Care Plan from [facility]: Sponsorship Coordinator: Eli Higuera Contact Information: [phone] Care Plan scanned into patient's EHR and notification sent to PCP. documented in this encounter Plan of Treatment Upcoming Encounters Date Type Department Care Team (Late st Contact Info) Description 10/31/2024 10:30 AM EST Office Visit [facility] OPT[facility] [address] [place] [address] Allegra Escobedo, OD [address] [place] [address] 11/02/2024 9:00 AM EST Office Visit [facility]C ADULT DENTAL [address] [place] [address] Karen Shea documented as of this encounter Visit Diagnoses Not on filedocumented in this encounter Additional Health Concerns Assessment Noted Time PHQ-9 Depression Total Score: 5 12/31/19 24 10:57 AM EDT documented as of this encounter Care Teams Personal Investment Adviser Relationship Specialty Start Date End Date Heena Abbasi MD [address] [place] [address] [phone] PCP - General Family Medicine 09/05/12 Eli Higuear Supervisor Contact LensWheel Polisher 03/17/24 Eli Higuera Supervisor Contact LensWheel Polisher 10/05/24 documented as of this encounter
[2024-10-13 13:57] LABS: C Reactive Protein 0.78 mg/dL (< or = 0.50)
== END 2024-10-13 11:40 | disposition home or self-care (01) ==
LOC: HO.HHCL 11:39
PROVIDERS: Visit Provider Family Medicine
DX: M54.41 Lumbago with sciatica, right side (principal)
CPT/HCPCS: 36415; 85025; 86140

== ENCOUNTER → 2024-10-26 10:08 | Outpatient (BNVA) | payer MEDICAID, SELFPAY | PROVIDERS: PCP Student in an Organized Health Care Education/Training Program; Visit Provider Internal Medicine | DX: I26.99 Other pulmonary embolism without acute cor pulmonale (principal); Z79.01 Long term (current) use of anticoagulants; Z51.81 Encounter for therapeutic drug level monitoring | CPT/HCPCS: 85610; 99211 ==

== ENCOUNTER 2024-11-23 09:57 | Outpatient (AMB) | payer MEDICAID, SELFPAY ==
[2024-11-23 10:05] LABS: Prothrombin Time Whole Bld POC 26.6 sec (11.1-13.5); ~PT, ~INR - Anti Coag Clinic 2.2 (0.9-1.1)
--- NOTE | 2024-11-23 10:12 | MHC.OFFVISCO ---
Intake Intake Visit Reasons: Anticoagulation Allergies No Known Allergies Allergy (Mild, Verified 11/23/24 09:58) N/A Medication List - Last Reconciled 11/23/24 by Vicki Mcfadden RN acetaminophen ER (Tylenol 8 Hour) 650 mg PO Q8H PRN ammonium lactate 12% 1 appl topical BID fxyxkvb-gjolmocpcjarn-vcwqrvcl 250-250-65 mg (Pain Reliever Plus) 0 tabs PO [calcium,magnesium,zinc and vitamin D3 1 tab PO DAILY] cetirizine 10 mg PO chlorhexidine gluconate 4% (Betasept Surgical Scrub) topical DAILY PRN kqzjzilz-yjdvhd-tgsqisyw acid 500 mg-800 mcg- 50 mg (Collagen 1500 Plus C) 3 caps PO DAILY cyclobenzaprine 5 mg PO BEDTIME diphenhydramine HCl (Banophen) 25 mg PO BEDTIME PRN famotidine 20 mg PO DAILY fluoxetine 10 mg PO QAM fluticasone propionate 0.005% 1 appl topical DAILY gemfibrozil 600 mg PO BID ketotifen fumarate 0.025%(0.035%) 1 drp ophthalmic (eye) BID lidocaine-prilocaine 2.5-2.5 % grams topical DAILY PRN methocarbamol 500 mg PO QID pantoprazole 20 mg PO DAILY trazodone 50 mg PO BEDTIME PRN triamcinolone acetonide 0.025% 1 appl topical BID triamcinolone acetonide 0.025% 1 appl topical BID warfarin 4 mg See Protocol PO DAILY Nursing Note INR: 2.2 in therapeutic range of 2-3 Medications and supplements reviewed No changes in health, diet, medications, or supplements, Denies any signs and symptoms of bleeding or bruising or clotting. Bleeding, bruising, clotting discussed Nutritional guidance given Dose: 4mg daily F/U INR: 4 weeks Patient verbalizes understanding of instructions with read back given Coding Level of Care Code Est Patient Level 1 Diagnoses Current use of anticoagulant therapy Z79.01 Results AMB INR Fingerstick AMB INR Fingerstick 2.2 Last Edit by Vicki Mcfadden RN on 11/23/24 10:05 interface delay Assessment & Plan Assessment & Plan (1) Current use of anticoagulant therapy: Code(s): Z79.01 - [facility] (current) use of anticoagulants Category: Medical
--- OUTSIDE RECORDS SUMMARY | 2024-11-23 11:35 | XMS_ITS | Encounter Summary ---
Author Organization [employer] Address 75 [facility] 7t [place] [address] Care Team Providers Care Cell Repairer Name Role Phone Heena Abbasi MD Primary Care Provider [phone] Reason for Visit * Reason Onset Date Comments Referral 07/29/2023 Encounter Details Date Type Department Care Team ([facility] st Contact Info) Description 07/29/2023 Telephone [facility] MEDICINE [address] [place] [address] Heena Abbasi MD [address] [place], [place] [phone] Referral Social History Tobacco Use Types Packs/Day [...] accepts pt insurance. * Telephone Encounter - Rufino Hickman - 07/29/2023 10:42 AM EST Tc from daughter calling in regards to the specialist the patient was referred to for allergy states that practice does not accept the patients insurance and would like to get referred else where. documented in this encounter Plan of Treatment Upcoming Encounters Date Type Department Care Team (Late st Contact Info) Description 11/24/2024 11:00 AM EST Office Visit [facility] ADULT D[facility] [address] [place] [address] Karen Shea documented as of this encounter Visit Diagnoses Not on filedocumented in this encounter Care Teams Cell Repairer Relationship Specialty Start Date End Date Heena Abbasi MD [address] [place] [phone] PCP - General Family Medicine 09/05/12 Eli Higuera Sap AdministratorForm Tamper Operator 03/17/24 Eli Higuera Sap AdministratorForm Tamper Operator 10/05/24 documented as of this encounter
--- OUTSIDE RECORDS SUMMARY | 2024-11-23 11:35 | XMS_ITS | Encounter Summary ---
Author Organization [employer] Address [address] [facility] [address] [place] [address] Care Team Providers Care Clerk Operator Name Role Phone Heena Abbasi MD Primary Care Provider [phone] Encounter Details Date Type Department Care Team (Late st Contact Info) Description 02/29/2024 Telephone [facility]ULT [facility] [address] [place] [address] Perri Noble, SOREN Social History Tobacco Use [...] Description 11/24/2024 11:00 AM EST Office Visit [facility] ADULT DENTAL [address] [place] [address] Karen Shea documented as of this encounter Visit Diagnoses Not on filedocumented in this encounter Additional Health Concerns Assessment Noted Time PHQ-9 Depression Total Score: 5 12/31/19 24 10:57 AM EDT documented as of this encounter Care Teams Clerk Operator Relationship Specialty Start Date End Date Heena Abbasi MD [address] [place] [phone] PCP - General Family Medicine 09/05/12 Eli Higuera Accounting Manager ControllerRoller Stitcher 03/17/24 Eli Higuera Accounting Manager ControllerRoller Stitcher 10/05/24 documented as of this encounter
--- OUTSIDE RECORDS SUMMARY | 2024-11-23 11:36 | XMS_ITS | Encounter Summary ---
Author Organization [employer] Address [address] [facility] 7t [place] [address] Care Team Providers Care Picker And Packer Name Role Phone Heena Abbasi MD Primary Care Provider Reason for Visit * Reason Onset Date Comments Med Refill 12/30/2022 Encounter Details Date Type Department Care Team (Late st Contact Info) Description 12/30/[address] [facility] MEDICINE [address] [place] [address] Heena Abbasi MD [address] [place] [address] Med Refill Social History Tobacco Use Types [...] PM EDT Pt managed [facility]. Noted INR of 3.0 on [...] Description 11/24/2024 11:00 AM EST Office Visit [facility] ADULT DENTAL [address] [place] [address] Karen Shea documented as of this encounter Visit Diagnoses Not on filedocumented in this encounter Care Teams Picker And Packer Relationship Specialty Start Date End Date Heena Abbasi MD [address] [place] [phone] PCP - General Family Medicine 09/05/12 Eli Higuera Stem SetterEarly Head Start Teacher 03/17/24 Eli Higuera Stem SetterEarly Head Start Teacher 10/05/24 documented as of this encounter
--- OUTSIDE RECORDS SUMMARY | 2024-11-23 11:36 | XMS_ITS | Encounter Summary ---
Author Organization [employer] Address [address] [facility] 7t [place] [address] Care Team Providers Care Mellowing Machine Operator Name Role Phone Heena Abbasi MD Primary Care Provider [phone] Encounter Details Date Type Department Care Team (Latest Contact Info) Description 07/29/2022 Abstract [facility] CONVERSIONS Dental, Provider, DDS Social History Tobacco [...] Description 11/24/2024 11:00 AM EST Office Visit [facility]C ADULT DENTAL [address] [place] [address] Karen Shea documented as of this encounter Visit Diagnoses Not on filedocumented in this encounter Care Teams Mellowing Machine Operator Relationship Specialty Start Date End Date Heena Abbasi MD [address] [place] [id number] PCP - General Family Medicine 09/05/12 Eli Higuera Heavy Equipment Rental ManagerWeather Strip Installer 03/17/24 Eli Higuera Heavy Equipment Rental ManagerWeather Strip Installer 10/05/24 documented as of this encounter
--- OUTSIDE RECORDS SUMMARY | 2024-11-23 11:36 | XMS_ITS | Encounter Summary ---
Author Organization [employer] Address [address] [facility] 7t [place] [address] Care Team Providers Care Electronic Data Processing Auditor Name Role Phone Heena Abbasi MD Primary Care Provider [phone] Encounter Details Date Type Department Care Team (Late st Contact Info) Description 09/10/2022 Orders Only [facility] [address] [place], [place] [phone] Tierra Ashby LPN Social History Tobacco Use [...] Description 11/24/2024 11:00 AM EST Office Visit [facility] CH[facility] ADULT DENTAL [address] [place] [address] Karen Shea documented as of this encounter Visit Diagnoses Not on filedocumented in this encounter Care Teams Electronic Data Processing Auditor Relationship Specialty Start Date End Date Heena Abbasi MD [address] [place] [address] PCP - General Family Medicine 09/05/12 Eli Higuera Data Conversion DeveloperHoist Mechanic 03/17/24 Eli Higuera Data Conversion DeveloperHoist Mechanic 10/05/24 documented as of this encounter
--- OUTSIDE RECORDS SUMMARY | 2024-11-23 11:36 | XMS_ITS | Clinical Summary ---
Author Organization [facility] Address [address] [facility] [address] [place] [address] Care Team Providers Care Vehicle Upholsterer Name Role Phone Heena Abbasi MD Primary Care Provider [phone] Allergies No known active allergies Medications Calcium Carb-Cholecalci ferol 500-10 MG-MCG tablet Take 1 tablet by mouth 1 (one) time each day. 02/05/20 21 Active cyclobenzaprine (Flexeril) 5 MG tablet Take 1 tablet by mouth at bedtime. 07/27/20 22 Active ferrous sulfate 325 (65 Fe) MG tablet Take 1 tablet by mouth 1 (one) time each day. 03/15/20 22 Active lidocaine-prilo jean paul (Emla) 2.5-2.5 % cream APPLY BY TOPICAL ROUTE EVERY DAY NEEDED. 07/27/20 22 Active chlorhexidine (Hibiclens) 4 % external liquidIndicatio ns:Hydradenitis Apply topically if needed each day for wound care. 100 mL 3 09/29/19 23 Active aspirin-acetami nophen-caffeine (Excedrin Migraine) 250-250-65 MG tabletIndicatio ns:Hypercholest erolemia take 1 tablet by oral route every 8 hours prn 90 tablet 1 10/02/19 23 Active amoxicillin (Amoxil) 500 MG capsule Please take 4 capsules (2 g) 1 hour prior to dental appointment. 12 capsule 02/18/20 23 Active warfarin (Coumadin) 2 MG tablet TAKE 1 TABLET BY ORAL ROUTE EVERY DAY DIRECTED BY THE COUMADIN CLINIC 30 tablet 11 04/05/20 23 Active fluticasone (Cutivate) 0.005 % ointmentIndicat ions:Eczema, unspecified type APLIQUE AL AREA AFECTADA DOS VECES AL RENAY 30 g 3 05/19/20 23 Active diphenhydrAMINE (Banophen) 25 MG tabletIndicatio ns:Muscle spasm Take 1 tablet (25 mg) by mouth if needed at bedtime for sleep. 90 tablet 3 10/25/19 24 Active gemfibrozil (Lopid) 600 MG tabletIndicatio ns:Hypercholest erolemia TOME ELIO TABLETA POR VIA ORAL 2 TIMES DAILY 180 tablet 11 12/31/19 24 Active triamcinolone (Kenalog) 0.025 % ointment APPLY TO CHEST TWICE DAILY NEEDED FOR FLARES, DECREASE USE SYMPTOMS IMPROVE 12/23/19 24 Active Triamcinolone Acetonide 0.025 % lotion APPLY TO SCALP TWICE A DAY IF NEEDED FOR FLARES, DECREASE USE SYMPTOMS IMPROVE 12/23/19 24 Active ammonium lactate (Amlactin) 12 % cream APPLY TO ARMS, TRUNK, AND LEGS TWICE A DAY 12/21/19 24 Active acetaminophen (Tylenol 8 Hour) 650 MG ER tabletIndicatio ns:Acute bilateral low back pain, unspecified whether sciatica present Take 1 tablet (650 mg) by mouth every 8 (eight) hours if needed for moderate pain or mild pain. 30 tablet 02/18/20 24 Active FLUoxetine (PROzac) 10 MG tabletIndicatio ns:Flushing, menopausal TOME ELIO TABLETA TODOS LOS SAGE EN LA MILTONANA 30 tablet 2 04/20/20 24 Active traZODone (Desyrel) 50 MG tabletIndicatio ns:Insomnia, unspecified type TAKE 1 TABLET BY MOUTH AT BEDTIME 30 tablet 2 05/09/20 24 Active Diclofenac Sodium 1 % gelIndications: Acute bilateral low back pain, unspecified whether sciatica present APPLY 1 INCH TOPICALLY ONCE A DAY 100 g 05/15/20 24 Active cetirizine (ZyrTEC) 10 MG tablet TAKE 1 TABLET 1-2 TIMES PER DAY FOR ITCH, RASH 90 tablet 05/16/20 24 Active cyclobenzaprine (Flexeril) 10 MG tablet Take 1 tablet (10 mg) by mouth 3 times daily for 10 days. 30 tablet 07/14/20 24 Active Lidocaine 5 % creamIndication s:Acute right-sided low back pain with right-sided sciatica Apply topically bid 30 g 3 10/13/19 25 Active dextran 70-hypromellose (artificial tears) 0.1-0.3 % ophthalmic solutionIndicat ions:Dry eyes, bilateral Administer 1 drop into both eyes if needed in the morning, at noon, and at bedtime for dry eyes. 30 mL 11 10/31/19 25 026 Active warfarin (Coumadin) 4 MG tabletIndicatio ns:Chronic atrial fibrillation (CMS/HCC) TAKE 1 TABLET BY MOUTH DAILY OR DIRECTED BY THE COUMADIN CLINIC 30 tablet 1 11/10/19 25 Active pantoprazole (ProtoNix) 20 MG EC tabletIndicatio ns:GERD without esophagitis TAKE 1 TABLET BY MOUTH BEFORE BREAKFAST 90 tablet 1 11/14/19 25 Active ketotifen (Zaditor) 0.025 % ophthalmic solution Apply 2 drops into the affected eye(s) daily 01/17/20 22 025 Discontinued(T herapy completed) ketotifen (Zaditor) 0.025 % ophthalmic solution INSTILL 2 DROPS EVERY DAY INTO AFFECTED EYE(S) 05/26/20 22 025 Discontinued(T herapy completed) Polyethyl Glycol-Propyl Glycol (Lubricant Eye Drops) 0.4-0.3 % solution Administer 0.1 mL into affected eye(s) 3 times daily. 10 mL 3 07/14/20 24 025 Discontinued(T herapy completed) pantoprazole (ProtoNix) 20 MG EC tabletIndicatio ns:GERD without esophagitis TAKE 1 TABLET BY MOUTH BEFORE BREAKFAST 90 tablet 1 07/18/20 24 025 Discontinued(R eorder (will not trigger notification to Pharmacy)) warfarin (Coumadin) 4 MG tabletIndicatio ns:Chronic atrial fibrillation (CMS/HCC) TAKE 1 TABLET BY MOUTH DAILY OR DIRECTED BY THE COUMADIN CLINIC 30 tablet 1 09/08/20 24 025 Discontinued Active Problems Problem Noted Date Diagnosed Date [...] Gentle stretching Short course of flexeril, I peer financial counselor about side effect somnolence Acetaminophen 1300mg [...] emergency room or call ambulance Rash 07/02/2023 Chronic atrial fibrillation 10/19/2022 Benign hypertension 03/06/2013 Assessment & Plan (07/02/2023 10:44 AM EDT): Patient is not on medications but reports at home is normal , I advise to monitor her BP, low Na diet and f/u with her PCP Hypercholesterolemia 03/06/2013 Insomnia 03/06/2013 Resolved Problems Problem Noted Date Diagnosed Date Resolved Date Allergic conjunctivitis of both eyes 07/02/2023 10/31/2024 Encounters Date Type Department Care Team Description 11/23/2024 Telephone [facility] ADULT DENTAL [address] [place] [address] Reynoso medical clearance ?? 11/23/2024 Orders Only GENERIC EXTERNAL DATA DEPARTMENT Provider, Generic External Data 11/14/2024 Telephone [facility] MEDIC[facility] [address] [place] [address] Heena Abbasi MD Med request 11/08/2024 Refill [facility] MED & PEDS [address] [place] [address] Lauren Amaral MD Chronic atrial fibrillation (CMS/HCC) 10/31/2024 10:30 AM EST Office Visit [facility] OPTOMET[facility] [address] [place] [address] Allegra Escobedo, OD Hypermetropia, bilateral (Primary Dx); Dry eyes, bilateral; Squamous blepharitis of upper and lower eyelids of both eyes; Combined forms of age-related cataract of both eyes 10/31/2024 Travel 10/14/2024 Telephone [facility] [address] [place] [phone] Arianna Engle MD 10/13/2024 9:40 AM EST Office Visit [facility] [address] [place] [address] Arianna Engle MD Acute right-sided low back pain with right-sided sciatica (Primary Dx); Right sided abdominal pain 10/05/2024 Telephone [facility] [address] [place] [address] Heena Abbasi MD Care Coordination (ICP care plan) 09/28/2024 Orders Only GENERIC EXTERNAL DATA DEPARTMENT Provider, Generic External Data 09/08/2024 Refill [facility] & PEDS [address] [place] [address] Heena Abbasi MD Chronic atrial fibrillation ([facility]) 08/31/2024 Orders Only GENERIC EXTERNAL DATA DEPARTMENT Provider, Generic External Data from Last 3 Months Immunizations Name Administration [...] Description 11/24/2024 11:00 AM EST Office Visit [facility] ADULT DENTAL [address] [place] [address] Karen Shea Health Maintenance Due Date Last Done Comments CT Colonography 1965 Colonoscopy 1965 FIT 1965 FOBT 1965 HIV Screening 1965 Sigmoidoscopy 1965 Hepatitis C Screening 02/11/1982 Pap Smear 02/11/1985 Cervical Cancer Screening 02/11/1994 HPV/Cotest 02/11/1994 Pneumococcal Vaccine: 50+ Years (1 of 1 - PCV) 02/11/2014 Zoster Vaccines (2 of 2) 07/30/2022 06/04/2022 [...] 12/30/2024 12/31/2023 Depression Screening 12/30/2024 12/31/2023, 12/31/19 24 Mammogram 04/20/2025 04/20/2024, 03/20, 03/06/2022 Tobacco Screening 10/31/2025 10/31/2024 Dental X-Ray: Full Mouth 12/14/2026 12/14/2023, 03/0 12/2018 Colorectal Cancer Screening 01/10/2027 FIT DNA/Cologuard [...] Comments PROTHROMBIN TIME WHOLE BLD POC Routine 11/23/2024 10:03 AM EST ~PT, ~INR - ANTI COAG CLINIC Routine 11/23/2024 10:03 AM EST C-REACTIVE PROTEIN STAT 10/13/2024 11 :43 AM EST Acute right-sided low back pain with right-sided sciatica CBC WITH AUTO DIFFERENTIAL STAT 10/13/2024 11:43 [...] COAG CLINIC Routine 08/31/2024 10:13 AM EST BI MAMMOGRAM SCREENING TOMOSYNTHESIS BILATERAL Routine 04/20/2024 9:00 AM EDT LIPID PANEL, STANDARD Routine 02/15/2024 10:47 AM EDT Benign hypertension LAB COLOGUARD?? COLON CANCER SCREEN Routine 01/11/2024 9:45 AM EDT Encounter for screening for malignant neoplasm of colon PROPHYLAXIS - ADULT Routine 12/14/2023 1 0:00 AM EDT INTRAORAL - COMPLETE SERIES OF RADIOGRAPHIC IMAGES Routine 12/14/2023 10:00 AM EDT PERIODIC ORAL EVALUATION - ESTABLISHED PATIENT Routine 12/14/2023 10:00 AM EDT from Last 3 Months or Most Recently Relevant to Health Maintenance Results * (ABNORMAL) PROTHROMBIN TIME WHOLE BLD POC (11/23/2024 10:03 AM EST) Only the most recent of3 resultswithin the time period is included. Protime 26.6(H) 11.1 - 13.5 sec [facility] 11/23/2024 10:0 3 AM EST 11/23/2024 10:05 AM EST us Generic External Data Provider LAB BLOOD ORDERAB LES Final Result [facility] [address] [place] [phone] * (ABNORMAL) ~PT, ~INR - ANTI COAG CLINIC (11/23/2024 10:03 AM EST) Only the most recent of3 resultswithin the time period is included. Prothrombin Time INR 2.2(H) 0.9 - 1.1 [facility] Comment:METER #: [id number] TERNATIONAL NORMALIZED RATIO (INR) REFERENCE RANGES Reference RangeFor patients not on anticoagulant therapy: 0.9 - 1.1INR ranges for oral anticoagulanttherapy:For prevention and treatment of venous thrombosis and pulmonary embolism: 2.0 - 3.0For acute myocardial infarction with aspirin therapy: 2.0 - 3.0For acute myocardial infarction without aspirin therapy: 3.0 - 4.0For patients with mechanical prosthetic heart valves: 2.5 - 3.5 11/23/2024 10:0 3 AM EST 11/23/2024 10:05 AM EST us Generic External Data Provider LAB BLOOD ORDERAB LES Final Result [facility] [address] [place] [address] [phone] * (ABNORMAL) CBC auto differential (10/13/2024 11:43 AM EST) White Blood Count 7.9 4.8 - 10.8 X10*3/uL [facility] Red Blood Count 4.61 4.20 - 5.50 X10*6/uL [facility] Hemoglobin 11.1(L) 12.0 - 16.0 g/dl [facility] Hematocrit 35.6(L) 37.0 - 47.0 % [facility] Mean Corpuscular Volume 77.2(L) 80.0 - 98.0 fL [facility] Mean Corpuscular Hemoglobin 24.1(L) 27.0 - 33.0 pg [facility] Mean Corpuscular HGB Conc 31.2 31.0 - 35.0 g/dl [facility] Red Cell Distribution Width 19.9(H) 11.0 - 16.0 % [facility] Platelet Count 553(H) 160 - 400 X10*3/uL [facility] Mean Platelet Volume 10.2 9.4 - 12.3 fL [facility] Neutrophils Percent Auto 59.3 45 - 73 % [facility] Imm Gran Pct Auto 0.3 0.0 - 0.4 % [facility] Lymphocytes Percent Auto 28.8 20 - 40 % [facility] Monocytes Percent Auto 8.9 2 - 11 % [facility] Eosinophils Percent Auto 1.9 0 - 4 % [facility] Basophils Percent Auto 0.8 0 - 2 % [facility] NRBC Pct Auto 0.0 0.0 - 0.2 /100WBC [facility] Neutrophils Absolute Auto 4.7 2.0 - 8.3 x10*3/uL [facility] Imm Gran Abs Auto 0.02 0.00 - 0.03 X10*3/uL [facility] Lymphocytes Absolute Auto 2.3 1.2 - 4.9 X10*3/uL [facility] Monocytes Absolute Auto 0.7 0.1 - 1.2 X10*3/uL [facility] Eosinophils Absolute Auto 0.2 0.0 - 0.4 X10*3/uL [facility] Basophils Absolute Auto 0.1 0.0 - 0.2 X10*3/uL [facility] NRBC Abs Auto 0.000 0.0 - 0.012 X10*3/uL [facility] Blood Venous blood specimen / Unknown 10/13/2024 11:43 AM EST 10/13/2024 1:29 PM EST Arianna Engle MD LAB BLOOD ORDERABLES Final Result [facility] [address] [place] [address] [phone] * (ABNORMAL) C-reactive Protein (10/13/2024 11:43 AM EST) C Reactive Protein 0.78(H) < or = 0.50 mg/dL [facility] Blood Venous blood specimen / Unknown 10/13/2024 11:43 AM EST 10/13/2024 1:29 PM EST us Arianna Engle MD LAB BLOOD ORDERABLES Final Result [facility] [address] [place] [address] [phone] * XR Lumbar Spine 2-3 Views (10/13/2024 10:39 AM EST) Anatomical Region Laterality Modality Spine, L-spine Radiographic Nerissa ging 10/13/2024 10:3 9 AM EST Narrative 10/13/2024 11:36 AM EST ?[facility] ?[address] ?[place] [address] ?XRay Report ? Signed ? Patient: Holly,Omaira ?MR#: [id number] ? : 1965 ?Acct:[id number] ? Age/Sex: 59 / F ?ADM Date: 10/13/24 ? Loc: HO.HHCX ? Attending Dr: Arianna Engle MD ? Ordering Physician: Arianna Engle MD ?? Date of Service: 10/13/24 ?? Procedure(s): XR lumbar spine 2-3V ?? Accession Number(s): [id number] ? cc: Arianna Engle MD ? EXAMINATION: [...] DD/ 1039 ? TD/TT: 10/13/24 1052 ? Highway Maintainer: ? Procedure Note Donotearlinterpreter, Image - 10/13/[address] [address] XRay Report Signed Patient: Omaira HollyMR#: [id number] : 1965Acct:[id number] Age/Sex: 59 / FADM Date: 10/13/24 Loc: HO.HHCX Attending Dr: Arianna Engle MD Ordering Physician: Arianna Engle MD Date of Service: 10/13/24 Procedure(s): XR lumbar spine 2-3V Accession Number(s): [id number] cc: Arianna Engle MD EXAMINATION: XR LUMBOSACRAL [...] 10/13/24 1133 DD/ 1039 TD/TT: 10/13/[address] Maintainer: Arianna Engle MD IMG XR PROCEDURES Final Re sult * BI Mammogram Screening Tomosynthesis Bilateral (04/20/2024 9:00 AM EDT) Anatomical Region Laterality Modality Breast Bilateral Mammography 04/20/2024 9:00 AM EDT Narrative 05/15/2024 2:28 AM EDT ? [facility] ? [address] ?[place] [address] ? Mammography Report ? Signed ? Patient: Holly,Omaira ?MR#: [id number] ? : 1965 ?Acct:[id number] ? Age/Sex: 59 / F ?ADM Date: 04/20/24 ? Loc: HO.MAMMO ? Attending Dr: Heena Abbasi MD ? Ordering Physician: Heena Abbasi MD ?Results: 1Negati ?? ve ? Date of Service: 04/20/24 ?Follow Up: 1 Year From Orig ?? inal Mammogram ? Procedure(s): MM tomosynthesis screening BI ?? Accession Number(s): [id number] ? cc: Heena Abbasi MD ? EXAMINATION: [...] 05/15/24 0224 ? DD/ 0900 ? TD/TT: 04/20/24 0915 ? Highway Maintainer: ? Procedure Note Kristy, Image - 05/15/2024 [place] [facility] [address] [place] [address] Mammography Report Signed Patient: Omaira HollyMR#: [id number] : 1965Acct:[id number] Age/Sex: 59 / FADM Date: 04/20/24 Loc: [facility].MAMMO Attending Dr: Heena Abbasi MD Ordering Physician: Heena Abbasi MDResults: 1Negati ve Date of Service: 04/20/24Follow Up: 1 Year From Orig inal Mammogram Procedure(s): MM tomosynthesis screening BI Accession Number(s): [id number] cc: Heena Abbasi MD EXAMINATION: MM SCREENING [...] Lacey Michelle MD in OV> 05/15/24223 DD/ 0900 TD/TT: 04/20/[address] Maintainer: Heena Abbasi MD IM BI PROCEDURES Final Result * (ABNORMAL) Lipid Panel, Standard (02/15/2024 10:47 AM EDT) Triglycerides 55 <150 mg/dL [facility] Comment:Desirable Triglyceri de: less than 150 mg/dLBorderline High Triglyceride 150-199 mg/dLHigh Triglyceride: 200-499 mg/dLVery High Triglyceride: greater than or equal to 5OO mg/dL Cholesterol 175 <200 mg/dL [facility] Comment:Desirable Cholestero l: less than 200 mg/dLBorderline High Cholesterol: 200-239 mg/dLHigh Cholesterol: greater than 239 mg/dL LDL Cholesterol Calculated 101(H) <100 mg/dL [facility] Comment:Desirable LDL: less than 100 mg/dLNear Optimal/Above Optimal LDL: 110- 129 mg/dLBorderline High LDL: 130-159 mg/dLHigh LDL: 160-189 mg/dLVery High LDL: greater than or equal to 190 mg/dL HDL Cholesterol 63 >40 mg/dL [facility] Comment:Desirable HDL: great er than 40 mg/dL Note: This HDL assay may give artificially low results in patients with liver disease. Blood Venous blood specimen / Unknown 02/15/2024 10:47 AM EDT 02/15/2024 10:47 AM EDT us Heena Abbasi MD LAB BLOOD ORDERABLES Final Resul t [facility] [address] [place] [address] [phone] * Cologuard?? colon cancer screening (01/11/2024 9:45 AM EDT) Cologuard Result Negative Negative 01/20/20 12:00 PM EDT [facility] (CLIA #:[id number]) Comment: NEGATIVE TEST RESULT. A negative Cologuard [...] screened with both Cologuard and colonoscopy. (Mando Siduh al, N Engl J Med 2014;370(14):1286- 1297) The normal value (reference range) for this assay is negative. COLOGUARD RE-SCREENING RECOMMENDATION: Periodic colorectal cancer screening is an important part of preventive healthcare for asymptomatic individuals at average risk for colorectal cancer. ??Following a negative Cologuard result, the [employer] Society and U.S. Multi-Society Task Force screening guidelines recommend a Cologuard re-screening interval of 3 years. References: [employer] Guideline for Colorectal Cancer Screening: https://www.cancer.org/cancer/wppcj-wakyyc-ltsqvs/ugetgammd-cylqgzcdd-jfcjfws/ac s-rec ommendations.html.; aDne DK, Feroz GALE, Lauro McdanielK, Colorectal Cancer Screening: Recommendations for Physicians and Patients from the U.S. Multi-Society Task Force on Colorectal Cancer Screening , Am J Gastroenterology 2017; 112:6452-9873. TEST DESCRIPTION: Composite algorithmic analysis of stool [...] screened with both Cologuard and colonoscopy. (Mando Dobson et al, N Engl J Med 2014;370(14):3004-8960.) Cologuard may produce a false negative or false positive result (no colorectal cancer or precancerous polyp present at colonoscopy follow up). A negative Cologuard test result does not guarantee the absence of CRC or advanced adenoma (pre-cancer). The current Cologuard screening interval is every 3 years. ([employer] Society and U.S. Multi-Society Task Force). Cologuard performance data in a 10,000 patient pivotal study using colonoscopy as the reference method can be accessed at the following location: www.[employer].com.[employer]/results. Additional description of the Cologuard test process, warnings and precautions can be found at www.[employer].com. Stool specimen (specimen) 01/11/2024 9:45 AM EDT 01/13/2024 10:47 AM EDT Heena Abbasi MD LAB MOLECULAR DIAGNOSTICS ORDERA BLES Final Result [facility] (CLIA #:[id number]) [place] [address], from Last 3 Months or Most Recently Relevant to Health Maintenance Insurance [id number] DENTAL-[facility] MEDICAID STAND ADULT DENTAL-[place] STAND ADULT Care Teams Vehicle Upholsterer Relationship Specialty Start Date End Date Heena Abbasi MD [address] [place] [phone] PCP - General Family Medicine 09/05/12 Eli Higuera Notch GrinderCoroner Technician 03/17/24 Eli Higuera Notch GrinderCoroner Technician 10/05/24
--- OUTSIDE RECORDS SUMMARY | 2024-11-23 11:36 | XMS_ITS | Encounter Summary ---
Author Organization [facility] Address [address] [facility] 7t [place] [address] Care Team Providers Care Pipe Recovery Specialist Name Role Phone Heena Abbasi MD Primary Care Provider [phone] Encounter Details Date Type Department Care Team (Late Contact Info) Description 01/01/2023 Orders Only [facility] [address] [place] [address] Heena Abbasi MD [address] [place] [address] Muscle spasm Social History Tobacco Use Types [...] Description 11/24/2024 11:00 AM EST Office Visit [facility] ADULT DENTAL [address] [place] [address] Karen Shea documented as of this encounter Visit Diagnoses Diagnosis Muscle spasm Spasm of muscle documented in this encounter Care Teams Pipe Recovery Specialist Relationship Specialty Start Date End Date Heena Abbasi MD [address] [place] [address] PCP - General Family Medicine 09/05/12 Eli Higuera Application TesterMarketing Senior Recruiter 03/17/24 Eli Higuera Application TesterMarketing Senior Recruiter 10/05/24 documented as of this encounter
--- OUTSIDE RECORDS SUMMARY | 2024-11-23 11:36 | XMS_ITS | Encounter Summary ---
Author Organization [facility] Address [address] [facility] [address]t [place] [address] Care Team Providers Care Public Health Internship Name Role Phone Heena Abbasi MD Primary Care Provider [phone] Reason for Visit * Reason Onset Date Comments Med request 11/14/2024 Encounter Details Date Type Department Care Team ([facility] st Contact Info) Description 11/14/2024 Telephone [facility] MED[facility] [address] [place] [address] Heena Abbasi MD [address] [place], [place] [phone] Med request Social History Tobacco Use Types Packs/Day Years [...] encounter Miscellaneous Notes * Telephone Encounter - Chloe Hernandez RN - 11/14/2024 9:25 AM EST Pantoprazole refill sent as requested. * Telephone Encounter - Jeannie Jaimes - 11/14/2024 9:05 AM EST Tc from pt requesting medication for acidity , she states she's taking medication for it but don't remember name as in not omeprazole or prilosec pt inform. documented in this encounter Plan of Treatment Upcoming Encounters Date Type Department Care Team (Late st Contact Info) Description 11/24/2024 11:00 AM EST Office Visit [facility] ADULT DENTAL [address] [place] [address] Karen Shea documented as of this encounter Visit Diagnoses Diagnosis GERD without esophagitis Esophageal reflux documented in this encounter Additional Health Concerns Assessment Noted Time PHQ-9 Depression Total Score: 5 12/31/19 24 10:57 AM EDT documented as of this encounter Care Teams Public Health Internship Relationship Specialty Start Date End Date Heena Abbasi MD [address] [place] [address] PCP - General Family Medicine 09/05/12 Eli Higuera Organic Section Technical LeadAssociate Manager 03/17/24 Eli Higuera Organic Section Technical LeadAssociate Manager 10/05/24 documented as of this encounter
--- OUTSIDE RECORDS SUMMARY | 2024-11-23 11:36 | XMS_ITS | Encounter Summary ---
Author Organization [facility] Address [address] [facility] [address] [place] [address] Care Team Providers Care Packing Checker Name Role Phone Heena Abbasi MD Primary Care Provider [phone] Encounter Details Date Type Department Care Team (Late st Contact Info) Description 12/31/2023 Orders Only [facility]S [address] [place], [place] [phone] Heena Abbasi MD [address] [place], [place] [phone] Social History Tobacco Use Types Packs/Day Years [...] Description 11/24/2024 11:00 AM EST Office Visit [facility] ADULT DENTAL [address] [place] [address] Karen Shea documented as of this encounter Visit Diagnoses Not on filedocumented in this encounter Additional Health Concerns Assessment Noted Time PHQ-9 Depression Total Score: 5 12/31/19 24 10:57 AM EDT documented as of this encounter Care Teams Packing Checker Relationship Specialty Start Date End Date Heena Abbasi MD [address] [place] [phone] PCP - General Family Medicine 09/05/12 Eli Higuera Gleason OperatorCredit Risk Modeler 03/17/24 Eli Higuera Gleason OperatorCredit Risk Modeler 10/05/24 documented as of this encounter
--- OUTSIDE RECORDS SUMMARY | 2024-11-23 11:36 | XMS_ITS | Encounter Summary ---
Author Organization [employer] Address [address] [facility] 7t [place] [address] Care Team Providers Care Burn Crew Member Name Role Phone Heena Abbasi MD Primary Care Provider [phone] Encounter Details Date Type Department Care Team (Late st Contact Info) Description 10/31/2024 10:30 AM EST Office Visit [facility] [address] [place], [place] [phone] Taralex Allegra, OD [address] [place], [place] [phone] Hypermetropia, bilateral (Primary Dx); Dry eyes, bilateral; Squamous blepharitis of upper and lower eyelids of both eyes; Combined forms of age-related cataract of both eyes Social History Tobacco Use Types Packs/Day Years [...] as of this encounter Progress Notes * Allegra Escobedo, OD - 10/31/2024 10:30 AM EST Eye Care Progress Note Patient ID: Omaira Holly is a 59 y.o. female. HPI Patient reports blurry vision both eyes (OU) at distance - patient has distance glasses. Patient had a stroke 20 years ago, feels this affected the clarity of her vision. Patient reports itching, debris, dryness and irritation both eyes (OU). Patient used to use drops but has not used anything for the past month. DARLENE: 2 years ago Last edited by Allegra Escobedo, OD on 10/31/2024 1:03 PM. Current Outpatient Medications Medication Sig Dispense Refill acetaminophen (Tylenol 8 Hour) 650 MG ER tablet Take 1 tablet (650 mg) by mouth every 8 (eight) hours if needed for moderate pain or mild pain. 30 tablet 0 ammonium lactate (Amlactin) 12 % cream APPLY TO ARMS, TRUNK, AND LEGS TWICE A DAY amoxicillin (Amoxil) 500 MG capsule Please take 4 capsules (2 g) 1 hour prior to dental appointment. 12 capsule 0 eqisgey-wvrihcwlhskbl-pvvpipuw (Excedrin Migraine) 250-250-65 MG tablet take 1 tablet by oral routeevery 8 hours prn 90 tablet 1 Calcium Carb-Cholecalciferol 500-10 MG-MCG tablet Take 1 tablet by mouth 1 (one) time each day. cetirizine (ZyrTEC) 10 MG tablet TAKE 1 TABLET 1-2 TIMES PER DAY FOR ITCH, RASH 90 tablet 0 chlorhexidine (Hibiclens) 4 % external liquid Apply topically if needed each day for wound care. 100 mL 3 cyclobenzaprine (Flexeril) 10 MG tablet Take 1 tablet (10 mg) by mouth 3 times daily for 10 days. 30 tablet 0 cyclobenzaprine (Flexeril) 5 MG tablet Take 1 tablet by mouth at bedtime. dextran 70-hypromellose (artificial tears) 0.1-0.3 % ophthalmic solution Administer 1 drop into both eyes if needed in the morning, at noon, and at bedtime for dry eyes. 30 mL 11 Diclofenac Sodium 1 % gel APPLY 1 INCH TOPICALLY ONCE A DAY 100 g 0 diphenhydrAMINE (Banophen) 25 MG tablet Take 1 tablet (25 mg) by mouth if needed at bedtime for sleep. 90 tablet 3 ferrous sulfate 325 (65 Fe) MG tablet Take 1 tablet by mouth 1 (one) time each day. FLUoxetine (PROzac) 10 MG tablet TOME ELIO TABLETA TODOS LOS SAGE EN LA PALOU[place]NA 30 tablet 2 fluticasone (Cutivate) 0.005 % ointment APLIQUE AL AREA AFECTADA DOS VECES AL RENAY 30 g 3 gemfibrozil (Lopid) 600 MG tablet TOME ELIO TABLETA POR VIA ORAL 2 TIMES DAILY 180 tablet 11 Lidocaine 5 % cream Apply topically bid 30 g 3 lidocaine-prilocaine (Emla) 2.5-2.5 % cream APPLY BY TOPICAL ROUTE EVERY DAY NEEDED. pantoprazole (ProtoNix) 20 MG EC tablet TAKE 1 TABLET BY MOUTH BEFORE BREAKFAST 90 tablet 1 traZODone (Desyrel) 50 MG tablet TAKE 1 TABLET BY MOUTH AT BEDTIME 30 tablet 2 triamcinolone (Kenalog) 0.025 % ointment APPLY TO CHEST TWICE DAILY NEEDED FOR FLARES, DECREASE USE SYMPTOMS IMPROVE Triamcinolone Acetonide 0.025 % lotion APPLY TO SCALP TWICE A DAY IF NEEDED FOR FLARES, DECREASE USE SYMPTOMS IMPROVE warfarin (Coumadin) 2 MG tablet TAKE 1 TABLET BY ORAL ROUTE EVERY DAY DIRECTED BY THE COUMADIN CLINIC 30 tablet 11 warfarin (Coumadin) 4 MG tablet TAKE 1 TABLET BY MOUTH DAILY OR DIRECTED BY THE COUMADIN CLINIC 30 tablet 1 No current facility-administered medications for this visit. Past Medical History: Diagnosis Date Stroke (cerebrum) (CMS/HCC) History reviewed. No pertinent surgical history. No family history on file. Tobacco Use: Medium Risk (10/31/2024) Tobacco Smoking Tobacco Use: Former Smokeless Tobacco Use: Never Passive Exposure: Past No Known Allergies ROS Positive for: Eyes Negative for: Constitutional, Gastrointestinal, Neurological, Skin, Genitourinary, Musculoskeletal,HENT, Endocrine, Cardiovascular, Respiratory, Psychiatric, Allergic/Imm, Heme/Lymph Last edited by Allegra Escobedo, OD on 10/31/2024 10:40 AM. Base Eye Exam Visual Acuity (Snellen - Linear) Right Left Dist sc 20/50 +1 20/40 Tonometry (iCare , 10:56 AM) Right Left Pressure 13 14 Pupils Pupils APD Right PERRL None Left PERRL None Visual Ruth (Counting fingers) Left Right Full Full Extraocular Movement Right Left Full Full Neuro/Psych Oriented x3: Yes Mood/Affect: Normal Dilation Both eyes: 1.0% tropicamide @ 11:24 AM Slit Lamp and Fundus Exam External Exam Right Left External Normal Normal Slit Lamp Exam Right Left Lids/Lashes blepharitis UL 1+ blepharitis UL 1+ Conjunctiva/Sclera White and quiet White and quiet Cornea debris in tear film, 1+ SPK debris in tear film, 2+ SPK Anterior Chamber Deep and quiet, angles open gr 4 Deep and quiet, angles open gr 4 Iris Flat, round Flat, round Lens Tr NS, tr cortical Tr NS, tr cortical Fundus Exam Right Left Vitreous Clear Clear Disc [place] and healthy [place] and healthy C/D Ratio Vertical 0.55 0.55 C/D Ratio Horizontal 0.55 0.55 Macula Flat, even pigmentation Flat, even pigmentation Vessels AV 2/3, normal course and caliber AV 2/3, normal course and caliber Periphery No holes/tears/detachments 360 No holes/tears/detachments 360 Refraction Manifest Refraction Sphere Cylinder [place] Dist VA Add Right +2.25 -0.50 080 20/20-2 +2.50 Left +3.25 -0.50 095 20/20-2 +2.50 Near VA Both: 20/20 Final Rx Sphere Cylinder [place] Add Right +2.25 -0.50 080 +2.50 Left +3.25 -0.50 095 +2.50 Expiration Date: 10/31/2026 Assessment and Plan Diagnoses and all orders for this visit: Hypermetropia, bilateral - Dispensed updated spec Rx Dry eyes, bilateral - Patient ed on findings. Recommended use of artificial tears 2-4x/day both eyes (OU). Rx'd artificial tears to [facility] pharmacy. - Patient given dry eye handout with OTC artificial tear options if Rx tears do not improve symptoms. - dextran 70-hypromellose (artificial tears) 0.1-0.3 % ophthalmic solution; Administer 1 drop into both eyes if needed in the morning, at noon, and at bedtime for dry eyes. 3. Squamous blepharitis of upper and lower eyelids of both eyes - Discussed eyelid hygiene and recommended daily OcuSoft eyelid wipes 4. Combined forms of age-related cataract of both eyes - Visually insignificant both eyes (OU). Monitor annually. RTC in 2 years for comprehensive eye exam or sooner as needed Allegra Escobedo, OD 10/31/2024, 1:03 PM Cardio Tech Source: __ None _x_ Bilingual Staff __ Qualified Staff Procurement Clerk __ Telephone Cardio Tech; ID# __ Cardio Tech brought by patient (family member, friend, TRICOT KNITTING MACHINE OPERATOR, etc) __ In person fishing vessel operator __ Ipad Cardio Tech; ID#: Language Spoken During Exam: Slovak documented in this encounter Plan of Treatment Upcoming Encounters Date Type Department Care Team (Late st Contact Info) Description 11/24/2024 11:00 AM EST Office Visit [facility] [address] [place] [address] Karen Shea documented as of this encounter Visit Diagnoses Diagnosis Hypermetropia, bilateral- Primary Dry eyes, bilateral 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
--- OUTSIDE RECORDS SUMMARY | 2024-11-23 11:36 | XMS_ITS | Encounter Summary ---
Author Organization [employer] Address [address] [facility] 7t [place] [address] Care Team Providers Care Blood Bank Assistant Name Role Phone Heena Abbasi MD Primary Care Provider [phone] Reason for Visit * Reason Onset Date Comments Med Refill 06/09/2023 Encounter Details Date Type Department Care Team ([facility] st Contact Info) Description 06/09/2023 Telephone C [facility] [address] [place], [place] [phone] Heena Abbasi MD [address] [place] [address] Med Refill Social History Tobacco Use Types [...] message pt has refills at pharmacy . Office Coordinator Receptionist contacted pharmacy to confirm . [facility] had a system error that was corrected and patient will be picking up script later today . * Telephone Encounter - Mari Miller LPN - 06/09/2023 11:54 AM EDT 90 day supply was sent to [facility] #[id number] on 12/29/22 with 3 refills. * Telephone Encounter - Brianne Wade - 06/09/2023 11:27 AM EDT Tc from pt requesting medication refill on gemfibrozil (Lopid) 600 MG tablet to be sent to [facility]/pharmacy #[id number] - [place], [place] - [address] documented in this encounter Plan of Treatment Upcoming Encounters Date Type Department Care Team (Late st Contact Info) Description 11/24/2024 11:00 AM EST Office Visit [facility] ADULT DENT[facility] [address] [place] [address] Karen Shea documented as of this encounter Visit Diagnoses Not on filedocumented in this encounter Care Teams Blood Bank Assistant Relationship Specialty Start Date End Date Heena Abbasi MD [address] [place] [address] PCP - General Family Medicine 09/05/12 Eli Higuera Floor RefinisherAward Clerk 03/17/24 Eli Higuera Floor RefinisherAward Clerk 10/05/24 documented as of this encounter
--- OUTSIDE RECORDS SUMMARY | 2024-11-23 11:36 | XMS_ITS | Encounter Summary ---
Author Organization [employer] Address [address] [facility] 7t [place] [address] Care Team Providers Care Machine Tech Name Role Phone Heena Abbasi MD Primary Care Provider [phone] Reason for Visit * Reason Onset Date Comments Med Refill 03/30/2023 Encounter Details Date Type Department Care Team ([facility] st Contact Info) Description 03/30/2023 Telephone [facility] [address] [place], [place] [phone] Heena Abbasi MD [address] [place] [address] Med Refill Social History Tobacco Use Types [...] - 03/31/2023 8:41 AM EDT Managed by [facility]. Noted INR result of 3.0 [...] Description 11/24/2024 11:00 AM EST Office Visit [facility] ADULT D[facility] [address] [place] [address] Karen Shea documented as of this encounter Visit Diagnoses Not on filedocumented in this encounter Care Teams Machine Tech Relationship Specialty Start Date End Date Heena Abbasi MD [address] [place] [address] PCP - General Family Medicine 09/05/12 Eli Higuera Crystal Machining CoordinatorChange Number Operator 03/17/24 Eli Higuera Crystal Machining CoordinatorChange Number Operator 10/05/24 documented as of this encounter
--- OUTSIDE RECORDS SUMMARY | 2024-11-23 11:36 | XMS_ITS | Encounter Summary ---
Author Organization [employer] Address [address] [facility] 7t [place] [address] Care Team Providers Care Infection Preventionist Name Role Phone Heena Abbasi MD Primary Care Provider [phone] Encounter Details Date Type Department Care Team (Latest Contact Info) Description 11/21/2018 Abstract [facility] CONVERSIONS Dental, Provider, DDS Social History [...] 11:00 AM EST Office Visit [facility] ADULT DENTAL [address] [place] [address] Karen Shea documented as of this encounter Visit Diagnoses Not on filedocumented in this encounter Care Teams Infection Preventionist Relationship Specialty Start Date End Date Heena Abbasi MD [address] [place] [address] PCP - General Family Medicine 09/05/12 Eli Higuera Supervisor Home Energy ConsultantRoll Shop Supervisor 03/17/24 Eli Higuera Supervisor Home Energy ConsultantRoll Shop Supervisor 10/05/24 documented as of this encounter
--- OUTSIDE RECORDS SUMMARY | 2024-11-23 11:36 | XMS_ITS | Encounter Summary ---
Author Organization [employer] Address [address] [facility] 7t [place] [address] Care Team Providers Care Design Center Consultant Name Role Phone Heena Abbasi MD Primary Care Provider [phone] Encounter Details Date Type Department Care Team (Late Contact Info) Description 12/09/2022 Orders Only [facility] MED & PEDS [address] [place] [address] Heena Abbasi MD [address] [place] [address] Social History Tobacco Use Types Packs/Day Years [...] [facility] ADULT DENTAL [address] [place] [address] Karen Shea documented as of this encounter Visit Diagnoses Not on filedocumented in this encounter Care Teams Design Center Consultant Relationship Specialty Start Date End Date Heena Abbasi MD [address] [place] [address] PCP - General Family Medicine 09/05/12 Eli Higuera Colloid Mill OperatorReceptionist Clerk 03/17/24 Eli Higuera Colloid Mill OperatorReceptionist Clerk 10/05/24 documented as of this encounter
--- OUTSIDE RECORDS SUMMARY | 2024-11-23 11:36 | XMS_ITS | Encounter Summary ---
Author Organization [employer] Address [address] [facility] 7t [place] [address] Care Team Providers Care Home Health Clinical Liaison Name Role Phone Heena Abbasi MD Primary Care Provider [phone] Reason for Visit * Reason Comments Med Refill Encounter Details Date Type Department Care Team ([facility] st Contact Info) Description 11/08/2024 Refill [facility] MED & PEDS [address] [place], [place] [phone] Lauren Amaral MD [address] [place], [place] [phone] Chronic atrial fibrillation (CMS/HCC) Social History Tobacco Use Types Packs/Day Years [...] Description 11/24/2024 11:00 AM EST Office Visit [facility] ADULT D[facility] [address] [place] [address] Karen Shea documented as of this encounter Visit Diagnoses Diagnosis Chronic atrial fibrillation (CMS/HCC) Atrial fibrillation documented in this encounter Additional Health Concerns Assessment Noted Time PHQ-9 Depression Total Score: 5 12/31/19 24 10:57 AM EDT documented as of this encounter Care Teams Home Health Clinical Liaison Relationship Specialty Start Date End Date Heena Abbasi MD [address] [place] [address] PCP - General Family Medicine 09/05/12 Eli Higuera Dispatcher ServiceBioinformaticist 03/17/24 Eli Higuera Dispatcher ServiceBioinformaticist 10/05/24 documented as of this encounter
--- OUTSIDE RECORDS SUMMARY | 2024-11-23 11:36 | XMS_ITS | Encounter Summary ---
Author Organization [employer] Address [address] [facility] 7t [place] [address] Care Team Providers Care Paper Machine Operator Name Role Phone Heena Abbasi MD Primary Care Provider Reason for Visit * Reason Onset Date Comments Dr. Golden medical clearance ?? 11/23/2024 Encounter Details Date Type Department Care Team (Late st Contact Info) Description 11/23/2024 Telephone C [facility] ADULT DENTAL [address] [place] [address] Vicki Golden, CHIKIS [address] [place], [place] [phone] Dr. Golden medical clearance ?? Social History Tobacco Use Types Packs/Day Years [...] * Telephone Encounter - Krysta Mederos - 11/23/2024 10:51 AM EST Message for Dr. Golden Patient is coming in tomorrow for recall visit. Patient takes coumadin. No medical clearance on file for future visits DR documented in this encounter Plan of Treatment Upcoming Encounters Date Type Department Care Team (Late st Contact Info) Description 11/24/2024 11:00 AM EST Office Visit [facility] ADULT DENT[facility] [address] [place] [address] Karen Shea documented as of this encounter Visit Diagnoses Not on filedocumented in this encounter Additional Health Concerns Assessment Noted Time PHQ-9 Depression Total Score: 5 12/31/19 24 10:57 AM EDT documented as of this encounter Care Teams Paper Machine Operator Relationship Specialty Start Date End Date Heena Abbasi MD [address] [place] [address] PCP - General Family Medicine 09/05/12 Eli Higuera Cook SoupClaims Coordinator 03/17/24 Eli Higuera Cook SoupClaims Coordinator 10/05/24 documented as of this encounter
--- OUTSIDE RECORDS SUMMARY | 2024-11-23 11:36 | XMS_ITS | Encounter Summary ---
Author Organization [employer] Address [address] [facility] 7t [place] [address] Care Team Providers Care Mechanical Expert Name Role Phone Heena Abbasi MD Primary Care Provider [phone] Encounter Details Date Type Department Care Team (Late Contact Info) Description 04/05/2023 Orders Only [facility] MED & PEDS [address] [place] [address] Heena Abbasi MD [address] [place] [address] Social History Tobacco Use Types Packs/Day Years [...] Description 11/24/2024 11:00 AM EST Office Visit [facility] ADULT DENTAL [address] [place] [address] Karen Shea documented as of this encounter Visit Diagnoses Not on filedocumented in this encounter Care Teams Mechanical Expert Relationship Specialty Start Date End Date Heena Abbais MD [address] [place] [address] PCP - General Family Medicine 09/05/12 Eli Higuera Ski PatrollerHair Or Beauty Salon Assistant 03/17/24 Eli Higuera Ski PatrollerHair Or Beauty Salon Assistant 10/05/24 documented as of this encounter
--- OUTSIDE RECORDS SUMMARY | 2024-11-23 11:36 | XMS_ITS | Encounter Summary ---
Author Organization [employer] Address [address] [facility] 7t [place] [address] Care Team Providers Care Counter Manager Name Role Phone Heena Abbasi MD Primary Care Provider [phone] Reason for Visit * Reason Onset Date Comments Referral 05/17/2023 Encounter Details Date Type Department Care Team ([facility] st Contact Info) Description 05/17/2023 Telephone [facility] MED & PEDS [address] [place], [place] [phone] Heena Abbasi MD [address] [place] [address] Referral Social History Tobacco Use Types Packs/Day [...] 05/17/2023 10:31 AM EDT Tc from candie ([facility]) requesting referral for pt. Location: [address] [place] J Santacruz [place] Date: n/a Time: n/a Specialty: link knitting machine operator documented in this encounter Plan of Treatment Upcoming Encounters Date Type Department Care Team (Late st Contact Info) Description 11/24/2024 11:00 AM EST Office Visit [facility] ADULT DENTAL [address] [place] [address] Karen Shea documented as of this encounter Visit Diagnoses Not on filedocumented in this encounter Care Teams Counter Manager Relationship Specialty Start Date End Date Heena Abbasi MD [address] [place] [address] PCP - General Family Medicine 09/05/12 Eli Higuera Intellectual Property Legal AssistantCorn Cutter 03/17/24 Eli Higuera Intellectual Property Legal AssistantCorn Cutter 10/05/24 documented as of this encounter
--- OUTSIDE RECORDS SUMMARY | 2024-11-23 11:36 | XMS_ITS | Encounter Summary ---
Author Organization [employer] Address [address] [facility] 7t [place] [address] Care Team Providers Care Porter Baggage Name Role Phone Heena Abbasi MD Primary Care Provider [phone] Encounter Details Date Type Department Care Team (Late st Contact Info) Description 11/23/2024 Orders Only GENERIC EXTERNAL DATA DEPARTMENT [...] 11:00 AM EST Office Visit [facility] ADULT D[facility] [address] [place] [address] Karen Shea documented as of this encounter Procedures Procedure Name Priority Date/Time Associated Diagnosis Comments PROTHROMBIN TIME WHOLE BLD POC Routine 11/23/2024 10:03 AM EST ~PT, ~INR - ANTI COAG CLINIC Routine 11/23/2024 10:03 AM EST documented in this encounter Results * (ABNORMAL) PROTHROMBIN TIME WHOLE BLD POC (11/23/2024 10:03 AM EST) Protime 26.6(H) 11.1 - 13.5 sec [facility] 11/23/2024 10:0 3 AM EST 11/23/2024 10:05 AM EST us Generic External Data Provider LAB BLOOD ORDERAB LES Final Result [facility] [address] [place] [address] [phone] * (ABNORMAL) ~PT, ~INR - ANTI COAG CLINIC (11/23/2024 10:03 AM EST) Prothrombin Time INR 2.2(H) 0.9 - 1.1 [facility] Comment:METER #: [id number] TERNATIONAL NORMALIZED RATIO (INR) REFERENCE RANGES Reference [...] ORDERAB LES Final Result Performing Organization Address City/State/[facility] Co de Phone Number [facility] [address] [place] [phone] documented in this encounter Visit Diagnoses Not on filedocumented in this encounter Additional Health Concerns Assessment Noted Time PHQ-9 Depression Total Score: 5 12/31/19 24 10:57 AM EDT documented as of this encounter Care Teams Porter Baggage Relationship Specialty Start Date End Date Heena Abbasi MD [address] [place] [address] PCP - General Family Medicine 09/05/12 Eli Higuera Jet Aircraft ServicerGear Tester 03/17/24 Eli Higuera Jet Aircraft ServicerGear Tester 10/05/24 documented as of this encounter
--- OUTSIDE RECORDS SUMMARY | 2024-11-23 11:36 | XMS_ITS | Encounter Summary ---
Author Organization [employer] Address [address] [facility] [address]t [place] [address] Care Team Providers Care Executive Personal Assistant Name Role Phone Heena Abbasi MD Primary Care Provider [phone] Encounter Details Date Type Department Care Team (Late Contact Info) Description 03/05/2023 Telephone [facility] ADULT DENTAL [address] [place] [address] Anthony Arnold [address] [place] [address] Social History Tobacco Use Types Packs/Day Years [...] AM EDT Patient called in with her FINISHED CARPET INSPECTOR from her coumadin clinic to report [facility] 3[facility]. [facility] number [facility] too high and patient will not be able to be seen. Informed patient to call next week to check schedule for new appt date that will coincide with a new coumadin INR apptdate as well. Patient understood DR documented in this encounter Plan of Treatment Upcoming Encounters Date Type Department Care Team (Late Contact Info) Description 11/24/2024 11:00 AM EST Office Visit [facility] ADULT DENTAL [address] [place] [address] Karen Shea documented as of this encounter Visit Diagnoses Not on filedocumented in this encounter Care Teams Executive Personal Assistant Relationship Specialty Start Date End Date Heena Abbasi MD [address] [place] [address] PCP - General Family Medicine 09/05/12 Eli Higuera Legal Practice ManagerChairman Emeritus 03/17/24 Eli Higuera Legal Practice ManagerChairman Emeritus 10/05/24 documented as of this encounter
--- OUTSIDE RECORDS SUMMARY | 2024-11-23 11:36 | XMS_ITS | Encounter Summary ---
Author Organization [employer] Address 75 [facility] 7t [place] [address] Care Team Providers Care Finance Controller Name Role Phone Heena Abbasi MD Primary Care Provider [phone] Reason for Visit * Reason Onset Date Comments pre tx medication 02/16/2023 Encounter Details Date Type Department Care Team (Late Contact Info) Description 02/16/2023 Telephone [facility] ADULT [facility] [address] [place] [address] Socorro Auguste DDS pre tx medication Social [...] 11/24/2024 11:00 AM EST Office Visit [facility] [address] [place] [address] Karen Shea documented as of this encounter Visit Diagnoses Not on filedocumented in this encounter Care Teams Finance Controller Relationship Specialty Start Date End Date Heena Abbasi MD [address] [place] [phone] PCP - General Family Medicine 09/05/12 Eli Higuera Electroplater ApprenticeGround Crewman Mission Support 03/17/24 Eli Higuera Electroplater ApprenticeGround Crewman Mission Support 10/05/24 documented as of this encounter
--- OUTSIDE RECORDS SUMMARY | 2024-11-23 11:36 | XMS_ITS | Encounter Summary ---
Author Organization [employer] Address 75 [facility] 7t [place] [address] Care Team Providers Care Television Audio Engineer Name Role Phone Heena Abbasi MD Primary Care Provider Encounter Details Date Type Department Care Team (Latest Contact Info) Description 10/31/2024 Travel Social History Tobacco Use Types Packs/Day Years [...] AM EST Office Visit [facility] ADULT DENTAL [address] [place] [address] Karen Shea documented as of this encounter Visit Diagnoses Not on filedocumented in this encounter Additional Health Concerns Assessment Noted Time PHQ-9 Depression Total Score: 5 12/31/19 24 10:57 AM EDT documented as of this encounter Care Teams Television Audio Engineer Relationship Specialty Start Date End Date Heena Abbasi MD [address] [place] [phone] PCP - General Family Medicine 09/05/12 Eli Higuera Shallot PackerYarn Inspector 03/17/24 Eli Higuera Shallot PackerYarn Inspector 10/05/24 documented as of this encounter
== END 2024-11-23 10:20 | disposition home or self-care (01) ==
LOC: HO.ACS 09:57
PROVIDERS: PCP Student in an Organized Health Care Education/Training Program; Visit Provider Internal Medicine
DX: Z79.01 Long term (current) use of anticoagulants (principal)

== ENCOUNTER → 2024-11-23 09:57 | Outpatient (BNVA) | payer MEDICAID, SELFPAY | PROVIDERS: PCP Student in an Organized Health Care Education/Training Program; Visit Provider Internal Medicine | DX: I26.99 Other pulmonary embolism without acute cor pulmonale (principal); Z79.01 Long term (current) use of anticoagulants; Z51.81 Encounter for therapeutic drug level monitoring | CPT/HCPCS: 85610; 99211 ==

== ENCOUNTER 2024-12-28 10:01 | Outpatient (AMB) | payer MEDICAID, SELFPAY ==
[2024-12-28 10:09] LABS: Prothrombin Time Whole Bld POC 28.6 sec (11.1-13.5); ~PT, ~INR - Anti Coag Clinic 2.4 (0.9-1.1)
--- NOTE | 2024-12-28 10:11 | MHC.OFFVISCO ---
Intake Intake Visit Reasons: Anticoagulation Allergies No Known Allergies Allergy (Mild, Verified 12/28/24 10:04) N/A Medication List - Last Reconciled 12/28/24 by Vicki Mcfadden RN acetaminophen ER (Tylenol 8 Hour) 650 mg PO Q8H PRN ammonium lactate 12% 1 appl topical BID usxpmxz-pzlcvhrejoipp-aziuqdnc 250-250-65 mg (Pain Reliever Plus) 0 tabs PO [calcium,magnesium,zinc and vitamin D3 1 tab PO DAILY] cetirizine 10 mg PO chlorhexidine gluconate 4% (Betasept Surgical Scrub) topical DAILY PRN onzjnxsc-ucbjph-ehepczgn acid 500 mg-800 mcg- 50 mg (Collagen 1500 Plus C) 3 caps PO DAILY cyclobenzaprine 5 mg PO BEDTIME diphenhydramine HCl (Banophen) 25 mg PO BEDTIME PRN famotidine 20 mg PO DAILY fluoxetine 10 mg PO QAM fluticasone propionate 0.005% 1 appl topical DAILY gemfibrozil 600 mg PO BID ketotifen fumarate 0.025%(0.035%) 1 drp ophthalmic (eye) BID lidocaine-prilocaine 2.5-2.5 % grams topical DAILY PRN methocarbamol 500 mg PO QID pantoprazole 20 mg PO DAILY trazodone 50 mg PO BEDTIME PRN triamcinolone acetonide 0.025% 1 appl topical BID triamcinolone acetonide 0.025% 1 appl topical BID warfarin 4 mg See Protocol PO DAILY Nursing Note INR: 2.4 in therapeutic range of 2-3 Medications and supplements reviewed No changes in health, diet, medications, or supplements, Denies any signs and symptoms of bleeding or bruising or clotting. Bleeding, bruising, clotting discussed Nutritional guidance given Dose: 4mg daily F/U INR: 4 weeks Patient verbalizes understanding of instructions given Coding Level of Care Code Est Patient Level 1 Diagnoses Current use of anticoagulant therapy Z79.01 Assessment & Plan Assessment & Plan (1) Current use of anticoagulant therapy: Code(s): Z79.01 - FDC (current) use of anticoagulants Category: Medical
--- OUTSIDE RECORDS SUMMARY | 2024-12-28 11:36 | XMS_ITS | Encounter Summary ---
Author Organization [employer] Address 75 [facility] 7t [place] [address] Care Team Providers Care Server Software Engineer Name Role Phone Heena Abbasi MD Primary Care Provider [phone] Encounter Details Date Type Department Care Team (Late st Contact Info) Description 12/28/2024 Orders Only GENERIC EXTERNAL DATA DEPARTMENT Provider, Generic External Data Social History Tobacco Use Types Packs/Day Years Used Date Smoking Tobacco: Former Cigarettes Passive Smoke Exposure: Past Smokeless Tobacco: Never Alcohol Use Standard Drinks/Week Comments Defer 0 (1 standard drink = 0.6 oz pur e alcohol) Depression Answer Date Recorded Patient Health Questionnaire-9 [...] Care Team (Late st Contact Info) Description 12/29/2024 10:00 AM EDT Office Visit [facility] ADULT DENTAL [address] [place] [address] Ravi Neri [address] [place] [address] 05/28/2025 10:00 AM EDT Office Visit [facility] ADULT DENTAL [address] [place] [address] Karen Shea documented as of this encounter Procedures Procedure Name Priority Date/Time Associated Diagnosis Comments PROTHROMBIN TIME WHOLE BLD POC Routine 12/28/2024 10:07 AM EDT ~PT, ~INR - ANTI COAG CLINIC Routine 12/28/2024 10:07 AM EDT documented in this encounter Results * (ABNORMAL) PROTHROMBIN TIME WHOLE BLD POC (12/28/2024 10:07 AM EDT) Protime 28.6(H) 11.1 - 13.5 sec [facility] 12/28/2024 10:0 7 AM EDT 12/28/2024 10:08 AM EDT us Generic External Data Provider LAB BLOOD ORDERAB LES Final Result [facility] [address] [place] [address] [phone] * (ABNORMAL) ~PT, ~INR - ANTI COAG CLINIC (12/28/2024 10:07 AM EDT) Prothrombin Time INR 2.4(H) 0.9 - 1.1 [facility] Comment:METER #: [id number] TERNATIONAL NORMALIZED RATIO (INR) REFERENCE RANGES Reference RangeFor patients not on anticoagulant therapy: 0.9 - 1.1INR ranges for oral anticoagulanttherapy:For prevention and treatment of venous thrombosis and pulmonary embolism: 2.0 - 3.0For acute myocardial infarction with aspirin therapy: 2.0 - 3.0For acute myocardial infarction without aspirin therapy: 3.0 - 4.0For patients with mechanical prosthetic heart valves: 2.5 - 3.5 12/28/2024 10:0 7 AM EDT 12/28/2024 10:08 AM EDT us Generic External Data Provider LAB BLOOD ORDERAB LES Final Result [facility] [address] [place] [address] [phone] documented in this encounter Visit Diagnoses Not on filedocumented in this encounter Additional Health Concerns Assessment Noted Time PHQ-9 Depression Total Score: 5 12/31/19 24 10:57 AM EDT documented as of this encounter Care Teams Server Software Engineer Relationship Specialty Start Date End Date Heena Abbasi MD [address] [place] [address] PCP - General Family Medicine 09/05/12 Eli Higuera Senior Industrial EngineerCertified Anesthesiologist Assistant 03/17/24 Eli Higuera Senior Industrial EngineerCertified Anesthesiologist Assistant 10/05/24 documented as of this encounter
--- OUTSIDE RECORDS SUMMARY | 2024-12-28 11:36 | XMS_ITS | Encounter Summary ---
Author Organization [employer] Address [address] [facility] 7t [place] [address] Care Team Providers Care Drawbridge Operator Name Role Phone Heena Abbasi MD Primary Care Provider Reason for Visit * Reason Onset Date Comments Dr. Golden medical clearance ?? 11/23/2024 Encounter Details Date Type Department Care Team (Late st Contact Info) Description 11/23/2024 Telephone [facility] ADULT DENTAL [address] [place] [address] Vicki Golden, CHIKIS [address] [place], [place] [phone] Dr. Golden medical clearance ?? Social History [...] Description 12/29/2024 10:00 AM EDT Office Visit [facility] ADULT DENTAL [address] [place] [address] Ravi Neri [address] [place] [address] 05/28/2025 10:00 AM EDT Office Visit [facility] ADULT DENTAL [address] [place] [address] Karen Shea documented as of this encounter Visit Diagnoses Not on filedocumented in this encounter Additional Health Concerns Assessment Noted Time PHQ-9 Depression Total Score: 5 12/31/19 24 10:57 AM EDT documented as of this encounter Care Teams Drawbridge Operator Relationship Specialty Start Date End Date Heena Abbasi MD [address] [place] [address] PCP - General Family Medicine 09/05/12 Eli Higuera Licensed Insurance Sales AgentChief Business Officer 03/17/24 Eli Higuera Licensed Insurance Sales AgentChief Business Officer 10/05/24 documented as of this encounter
--- OUTSIDE RECORDS SUMMARY | 2024-12-28 11:36 | XMS_ITS | Encounter Summary ---
Author Organization [employer] Address 75 [facility] 7t [place] [address] Care Team Providers Care Business Strategist Name Role Phone Heena Abbasi MD Primary Care Provider [phone] Encounter Details Date Type Department Care Team (Late st Contact Info) Description 09/10/2022 Orders Only [facility] [address] [place], [place] [phone] Tierra Ashby LPN Social History Tobacco Use [...] Description 12/29/2024 10:00 AM EDT Office Visit [facility] ADULT DENTAL [address] [place] [address] Ravi Neri [address] [place] [address] 05/28/2025 10:00 AM EDT Office Visit [facility] ADULT DENTAL [address] [place] [address] Karen Shea documented as of this encounter Visit Diagnoses Not on filedocumented in this encounter Care Teams Business Strategist Relationship Specialty Start Date End Date Heena Abbasi MD [address] [place] [address] PCP - General Family Medicine 09/05/12 Eli Higuera Supervisory HistorianEducation Adviser 03/17/24 Eli Higuera Supervisory HistorianEducation Adviser 10/05/24 documented as of this encounter
--- OUTSIDE RECORDS SUMMARY | 2024-12-28 11:36 | XMS_ITS | Encounter Summary ---
Author Organization [employer] Address 75 [facility] 7t [place] [address] Care Team Providers Care Motor Tune Up Specialist Name Role Phone Heena Abbasi MD Primary Care Provider [phone] Encounter Details Date Type Department Care Team (Late st Contact Info) Description 12/31/2023 Orders Only [facility] & PED[facility] [address] [place], [place] [phone] Heena Abbasi MD [address] [place], [place] [phone] Social History Tobacco Use Types Packs/Day Years [...] Description 12/29/2024 10:00 AM EDT Office Visit [facility] ADULT DENTAL [address] [place], [place] [phone] Ravi Neri [address] [place] [address] 05/28/2025 10:00 AM EDT Office Visit [facility] ADULT DENTAL [address] [place] [address] Karen Shea documented as of this encounter Visit Diagnoses Not on filedocumented in this encounter Additional Health Concerns Assessment Noted Time PHQ-9 Depression Total Score: 5 12/31/19 24 10:57 AM EDT documented as of this encounter Care Teams Motor Tune Up Specialist Relationship Specialty Start Date End Date Heena Abbasi MD [address] [place] [address] PCP - General Family Medicine 09/05/12 Eli Higuera Customer ManagerAurist 03/17/24 Eli Higuera Customer ManagerAurist 10/05/24 documented as of this encounter
--- OUTSIDE RECORDS SUMMARY | 2024-12-28 11:36 | XMS_ITS | Encounter Summary ---
Author Organization [employer] Address 75 [facility] 7t [place] [address] Care Team Providers Care Paid Search Specialist Name Role Phone Heena Abbasi MD Primary Care Provider [phone] Encounter Details Date Type Department Care Team (Late Contact Info) Description 12/09/2022 Orders Only [facility] MED & PEDS [address] [place] [address] Heena Abbasi MD [address] [place] [address] Social History Tobacco Use Types Packs/Day Years [...] Description 12/29/2024 10:00 AM EDT Office Visit [facility] ADULT DENTAL [address] [place] [address] Ravi Neri [address] [place] [address] 05/28/2025 10:00 AM EDT Office Visit [facility] ADULT DENTAL [address] [place] [address] Karen Shea documented as of this encounter Visit Diagnoses Not on filedocumented in this encounter Care Teams Paid Search Specialist Relationship Specialty Start Date End Date Heena Abbasi MD [address] [place] [address] PCP - General Family Medicine 09/05/12 Eli Higuera Textile Pin WorkerCoating Machine Feeder 03/17/24 Eli Higuera Textile Pin WorkerCoating Machine Feeder 10/05/24 documented as of this encounter
--- OUTSIDE RECORDS SUMMARY | 2024-12-28 11:36 | XMS_ITS | Encounter Summary ---
Author Organization [employer] Address [address] [facility] [address] [place] [address] Care Team Providers Care Mattress Stripper Name Role Phone Heena Abbasi MD Primary Care Provider [phone] Encounter Details Date Type Department Care Team (Late st Contact Info) Description 02/29/2024 Telephone [facility]ULT [facility] [address] [place] [address] Perri Noble, SOREN Social History Tobacco Use [...] Description 12/29/2024 10:00 AM EDT Office Visit [facility] ADULT D[facility] [address] [place] [address] Daron Ravi [address] [place] [address] 05/28/2025 10:00 AM EDT Office Visit [facility] ADULT D[facility] [address] [place] [address] Karen Shea documented as of this encounter Visit Diagnoses Not on filedocumented in this encounter Additional Health Concerns Assessment Noted Time PHQ-9 Depression Total Score: 5 12/31/19 24 10:57 AM EDT documented as of this encounter Care Teams Mattress Stripper Relationship Specialty Start Date End Date Heena Abbasi MD [address] [place] [address] PCP - General Family Medicine 09/05/12 Eli Higuera Microsoft Dynamics Ax DeveloperLeak Detector 03/17/24 Eli Higuera Microsoft Dynamics Ax DeveloperLeak Detector 10/05/24 documented as of this encounter
--- OUTSIDE RECORDS SUMMARY | 2024-12-28 11:36 | XMS_ITS | Encounter Summary ---
Author Organization [employer] Address 75 [facility] 7t [place] [address] Care Team Providers Care Middle School Coach Name Role Phone Heena Abbasi MD Primary Care Provider [phone] Encounter Details Date Type Department Care Team (Latest Contact Info) Description 07/29/2022 Abstract [facility] CONVERSIONS Dental, Provider, DDS Social History [...] 10:00 AM EDT Office Visit [facility] ADULT DENTAL [address] [place] [address] Jacob Neriio [address] [place] [address] 05/28/2025 10:00 AM EDT Office Visit [facility] ADULT DENTAL [address] [place] [address] Karen Shea documented as of this encounter Visit Diagnoses Not on filedocumented in this encounter Care Teams Middle School Coach Relationship Specialty Start Date End Date Heena Abbasi MD [address] [place] [address] PCP - General Family Medicine 09/05/12 Eli Higuera Commercial DirectorFlatcar Whacker 03/17/24 Eli Higuera Commercial DirectorFlatcar Whacker 10/05/24 documented as of this encounter
--- OUTSIDE RECORDS SUMMARY | 2024-12-28 11:36 | XMS_ITS | Encounter Summary ---
Author Organization [employer] Address 75 [facility] 7t [place] [address] Care Team Providers Care Hotel Or Motel Room Service Supervisor Name Role Phone Heena Abbasi MD Primary Care Provider [phone] Reason for Visit * Reason Onset Date Comments Referral 07/29/2023 Encounter Details Date Type Department Care Team ([facility] st Contact Info) Description 07/29/2023 Telephone [facility] MEDICINE [address] [place] [address] Heena Abbasi MD [address] [place], [place] [phone] Referral Social History Tobacco Use Types Packs/Day [...] pt insurance. * Telephone Encounter - Rufino Perez - 07/29/2023 10:42 AM EST Tc from daughter calling in regards to the specialist the patient was referred to for allergy states that practice does not accept the patients insurance and would like to get referred else where. documented in this encounter Plan of Treatment Upcoming Encounters Date Type Department Care Team (Late st Contact Info) Description 12/29/2024 10:00 AM EDT Office Visit [facility] ADULT DENTAL [address] [place] [address] Ravi Neri [address] [place] [address] 05/28/2025 10:00 AM EDT Office Visit [facility] ADULT DENTAL [address] [place] [address] Karen Shea documented as of this encounter Visit Diagnoses Not on filedocumented in this encounter Care Teams Hotel Or Motel Room Service Supervisor Relationship Specialty Start Date End Date Heena Abbasi MD [address] [place] [phone] PCP - General Family Medicine 09/05/12 Eli Higuera Director Internal AuditMarketing Rep 03/17/24 Eli Higeura Director Internal AuditMarketing Rep 10/05/24 documented as of this encounter
--- OUTSIDE RECORDS SUMMARY | 2024-12-28 11:36 | XMS_ITS | Encounter Summary ---
Author Organization [employer] Address 75 [facility] 7t [place] [address] Care Team Providers Care Data Processing Systems Project Planner Name Role Phone Heena Abbasi MD Primary Care Provider [phone] Encounter Details Date Type Department Care Team (Latest Contact Info) Description 11/21/2018 Abstract [facility] CONVERSIONS Dental, Provider, DDS Social History [...] Description 12/29/2024 10:00 AM EDT Office Visit [facility] ADULT DENTAL [address] [place] [address] Daron Ravi [address] [place] [address] 05/28/2025 10:00 AM EDT Office Visit [facility] ADULT DENTAL [address] [place] [address] Karen Shea documented as of this encounter Visit Diagnoses Not on filedocumented in this encounter Care Teams Data Processing Systems Project Planner Relationship Specialty Start Date End Date Heena Abbasi MD [address] [place] [address] PCP - General Family Medicine 09/05/12 Eli Higuera Water Taxi DriverLaundry Assistant 03/17/24 Eli Higuera Water Taxi DriverLaundry Assistant 10/05/24 documented as of this encounter
--- OUTSIDE RECORDS SUMMARY | 2024-12-28 11:36 | XMS_ITS | Clinical Summary ---
Author Organization [employer] Address [address] [facility] 7t [place] [address] Care Team Providers Care Cab Worker Name Role Phone Heena Abbasi MD Primary Care Provider [phone] Allergies No known active allergies Medications Calcium Carb-Cholecalcif yana 500-10 MG-MCG tablet Take 1 tablet by mouth 1 (one) time each day. 1 Active cyclobenzaprine (Flexeril) 5 MG tablet Take 1 tablet by mouth at bedtime. 2 Active ferrous sulfate 325 (65 Fe) MG tablet Take 1 tablet by mouth 1 (one) time each day. 2 Active lidocaine-priloc diya (Emla) 2.5-2.5 % cream APPLY BY TOPICAL ROUTE EVERY DAY NEEDED. 2 Active chlorhexidine (Hibiclens) 4 % external liquidIndication s:Hydradenitis Apply topically if needed each day for wound care. 100 mL 3 3 Active aspirin-acetamin ophen-caffeine (Excedrin Migraine) 250-250-65 MG tabletIndication s:Hypercholester olemia take 1 tablet by oral route every 8 hours prn 90 tablet 1 3 Active amoxicillin (Amoxil) 500 MG capsule Please take 4 capsules (2 g) 1 hour prior to dental appointment. 12 capsule 3 Active Additional Information Patient not taking.Reported on 11/24/2024 warfarin (Coumadin) 2 MG tablet TAKE 1 TABLET BY ORAL ROUTE EVERY DAY DIRECTED BY THE COUMADIN CLINIC 30 tablet 11 3 Active fluticasone (Cutivate) 0.005 % ointmentIndicati ons:Eczema, unspecified type APLIQUE AL AREA AFECTADA DOS VECES AL RENAY 30 g 3 3 Active diphenhydrAMINE (Banophen) 25 MG tabletIndication s:Muscle spasm Take 1 tablet (25 mg) by mouth if needed at bedtime for sleep. 90 tablet 3 4 Active gemfibrozil (Lopid) 600 MG tabletIndication s:Hypercholester olemia TOME ELIO TABLETA POR VIA ORAL 2 [...] acetaminophen (Tylenol 8 Hour) 650 MG ER tabletIndication s:Acute bilateral low back pain, unspecified whether sciatica present Take 1 tablet (650 mg) by mouth every 8 (eight) hours if needed for moderate pain or mild pain. 30 tablet 4 Active FLUoxetine (PROzac) 10 MG tabletIndication s:Flushing, menopausal TOME ELIO TABLETA TODOS LOS SAGE EN LA PILOTANA 30 tablet 2 4 Active traZODone (Desyrel) 50 MG tabletIndication s:Insomnia, unspecified type TAKE 1 TABLET BY MOUTH AT BEDTIME 30 tablet 2 4 Active Diclofenac Sodium 1 % gelIndications:A cute bilateral low back pain, unspecified whether sciatica present APPLY 1 INCH TOPICALLY ONCE A DAY 100 g 4 Active cetirizine (ZyrTEC) 10 MG tablet TAKE 1 TABLET 1-2 TIMES PER DAY FOR ITCH, RASH 90 tablet 4 Active cyclobenzaprine (Flexeril) 10 MG tablet Take 1 tablet (10 mg) by mouth 3 times daily for 10 days. 30 tablet 4 Active Lidocaine 5 % creamIndications :Acute right-sided low back pain with right-sided sciatica Apply topically bid 30 g 3 5 Active dextran 70-hypromellose (artificial tears) 0.1-0.3 % ophthalmic solutionIndicati ons:Dry eyes, bilateral Administer 1 drop into both eyes if needed in the morning, at noon, and at bedtime for dry eyes. 30 mL 11 5 10/31/19 26 Active warfarin (Coumadin) 4 MG tabletIndication s:Chronic atrial fibrillation (CMS/HCC) TAKE 1 TABLET BY MOUTH DAILY OR DIRECTED BY THE COUMADIN CLINIC 30 tablet 1 5 Active Additional Information Patient not taking.Reported on 11/24/2024 pantoprazole (ProtoNix) 20 MG EC tabletIndication s:GERD without esophagitis TAKE 1 TABLET BY MOUTH BEFORE BREAKFAST 90 tablet 1 5 Active Active Problems Problem Noted Date [...] Gentle stretching Short course of flexeril, I residential substance abuse counselor about side effect somnolence Acetaminophen 1300mg [...] Encounters Date Type Department Care Team Description 12/28/2024 Orders Only GENERIC EXTERNAL DATA DEPARTMENT Provider, Generic External Data 12/18/2024 Outside Procedure [facility] [address] [place] [address] Oswaldo, Sheba, OD Presbyopia (Primary Dx) 12/12/2024 2:00 PM EDT Office Visit [facility] [address] [place] [address] Oswaldo, Sheba, OD Hypermetropia, bilateral (Primary Dx) 12/01/2024 Population Health Risk Score [facility] () Department [address] [phone] Provider, Population Health Generic 11/24/2024 11:00 AM EST Office Visit [facility] [address] [place] [address] Karen Shea 11/23/2024 Telephone [facility] [address] [place] [address] Reynoso medical clearance ?? 11/23/2024 Orders Only GENERIC EXTERNAL DATA DEPARTMENT Provider, Generic External Data 11/14/2024 Telephone [facility] [address] [place] [address] Heena Abbasi MD Med request 11/08/2024 Refill [facility] & [facility] [address] [place], [place] [phone] Lauren Amaral MD Chronic atrial fibrillation ([facility]) 10/31/2024 10:30 AM EST Office Visit [facility] [address] [place] [address] TarkaIsaAllegra, OD Hypermetropia, bilateral (Primary Dx); Dry eyes, bilateral; Squamous blepharitis of upper and lower eyelids of both eyes; Combined forms of age-related cataract of both eyes 10/31/2024 Travel 10/14/2024 Telephone [facility] [address] [place] [address] Arianna Engle MD 10/13/2024 9:40 AM EST Office Visit [facility] [address] [place] [address] Arianna Engle MD Acute right-sided low back pain with right-sided sciatica (Primary Dx); Right sided abdominal pain 10/05/2024 Telephone [facility] [address] [place], [place] [phone] Heena Abbasi MD Care Coordination (ICP care plan) from Last 3 Months Immunizations Name Administration [...] Tobacco: Never Tobacco Cessation:Counseling Given: Not Answered Alcohol Use Standard Drinks/Week Comments Defer 0 [...] Sign Reading Time Taken Comments Blood Pressure 122/76 11/24/2024 11:05 AM EST Pulse 92 10/13/2024 9:48 AM [...] Description 12/29/2024 10:00 AM EDT Office Visit [facility] [address] [place], [place] [phone] Ravi Neri [address] [place] [address] 05/28/2025 10:00 AM EDT Office Visit [facility] [address] [place] [address] Karen Shea Health Maintenance Due Date Last [...] 2024 , 06/04/2022, 09/15/2021, Additional history exists SDOH Screening 12/20/2024 12/21/2023 Alcohol/Substance Use Screening 12/30/2024 12/31/2023 Depression Screening 12/30/2024 12/31/2023, 12/31/19 Mammogram 04/20/2025 04/20/2024, 0704/2023, 03/06/2022 Dental Oral Exam 05/28/2025 11/24/2024, , 07/29/2022 Dental Prophylaxis 05/28/2025 11/24/2024, 0 12/14/2023, 07/29/2022 Tobacco Screening 11/24/2025 11/24/2024 Dental X-Ray: Bitewings 11/25/2025 11/25/19, 12/14/2023, 07/29/2022 Dental X-Ray: Full Mouth 12/14/2026 12/14/2023, 0312/2018 [...] [facility] Routine 12/28/2024 10:07 AM EDT PERIODIC ORAL EVALUATION - ESTABLISHED PATIENT Routine 11/24/2024 11:00 AM EST COMPREHENSIVE PERIODONTAL EVALUATION - NEW OR ESTABLISHED PATIENT Routine 11/24/2024 11:00 AM EST BITEWINGS - 2 RADIOGRAPHIC IMAGES Routine 11/24/2024 11:00 AM EST INTRAORAL - PERIAPICAL EACH ADDITIONAL RADIOGRAPHIC IMAGE Routine 11/24/2024 11:00 AM EST INTRAORAL - PERIAPICAL FIRST RADIOGRAPHIC IMAGE Routine 11/24/2024 11:00 AM EST ORAL HYGIENE INSTRUCTIONS Routine 11/24/2024 11:00 AM EST CASE PRESENTATION, DETAILED AND EXTENSIVE TREATMENT PLANNING Routine 11/24/2024 11:00 AM EST PROPHYLAXIS - ADULT Routine 11/24/2024 1 1:00 AM EST PROTHROMBIN TIME WHOLE BLD POC Routine 11/23/2024 [...] right-sided low back pain with right-sided sciatica BI MAMMOGRAM SCREENING TOMOSYNTHESIS BILATERAL Routine 04/20/2024 9:00 AM EDT LIPID PANEL, STANDARD Routine 02/15/2024 10:47 AM EDT Benign hypertension LAB COLOGUARD?? COLON CANCER SCREEN Routine 01/11/2024 9:45 AM EDT Encounter for screening for malignant neoplasm of colon INTRAORAL - COMPLETE SERIES OF RADIOGRAPHIC IMAGES Routine 12/14/2023 10:00 AM EDT from Last 3 Months or Most Recently Relevant to Health Maintenance Results * (ABNORMAL) PROTHROMBIN TIME WHOLE BLD POC (12/28/2024 10:07 AM EDT) Only the most recent of2 resultswithin the time period is included. Protime 28.6(H) 11.1 - 13.5 sec [facility] 12/28/2024 10:0 7 AM EDT 12/28/2024 10:08 AM EDT us Generic External Data Provider LAB BLOOD ORDERAB LES Final Result [facility] [address] [place] [phone] * (ABNORMAL) ~PT, ~INR - ANTI COAG CLINIC (12/28/2024 10:07 AM EDT) Only the most recent of2 resultswithin the time period is included. [facility] Prothrombin Time INR 2.4(H) 0.9 - 1.1 [facility] Comment:METER #: [id number] TERNATIONAL NORMALIZED RATIO (INR) REFERENCE RANGES Reference [...] ORDERAB LES Final Result Performing Organization Address City/State/[facility] Co de Phone Number [facility] [address] [place] [phone] * (ABNORMAL) CBC auto differential (10/13/2024 11:43 AM EST) [facility] White Blood Count 7.9 4.8 - 10.8 X10*3/uL [facility] Red Blood Count 4.61 4.20 - 5.50 X10*6/uL [facility] Hemoglobin 11.1(L) 12.0 - 16.0 g/dl [facility] Hematocrit 35.6(L) 37.0 - 47.0 % [facility] Mean Corpuscular Volume 77.2(L) 80.0 - 98.0 fL [facility] Mean Corpuscular Hemoglobin 24.1(L) 27.0 - 33.0 pg [facility] Mean Corpuscular HGB Conc 31.2 31.0 - 35.0 g/dl [facility] Red Cell Distribution Width 19.9(H) 11.0 - 16.0 % [facility] Platelet Count 553(H) 160 - 400 X10*3/uL [facility] Mean Platelet Volume 10.2 9.4 - 12.3 fL [facility] Neutrophils Percent Auto 59.3 45 - 73 % [facility] Imm Gran Pct Auto 0.3 0.0 - 0.4 % [facility] Lymphocytes Percent Auto 28.8 20 - 40 % [facility] Monocytes Percent Auto 8.9 2 - 11 % [facility] Eosinophils Percent Auto 1.9 0 - 4 % [facility] Basophils Percent Auto 0.8 0 - 2 % [facility] NRBC Pct Auto 0.0 0.0 - 0.2 /100WBC [facility] Neutrophils Absolute Auto 4.7 2.0 - 8.3 x10*3/uL [facility] Imm Gran Abs Auto 0.02 0.00 - 0.03 X10*3/uL [facility] Lymphocytes Absolute Auto 2.3 1.2 - 4.9 X10*3/uL [facility] Monocytes Absolute Auto 0.7 0.1 - 1.2 X10*3/uL [facility] Eosinophils Absolute Auto 0.2 0.0 - 0.4 X10*3/uL [facility] Basophils Absolute Auto 0.1 0.0 - 0.2 X10*3/uL [facility] NRBC Abs Auto 0.000 0.0 - 0.012 X10*3/uL [facility] Blood Venous blood specimen / Unknown 10/13/2024 11:43 AM EST 10/13/2024 1:29 PM EST us Arianna Engle MD LAB BLOOD ORDERABLES Final Result [facility] [address] [place] [phone] * (ABNORMAL) C-reactive Protein (10/13/2024 11:43 AM EST) C Reactive Protein 0.78(H) < or = 0.50 mg/dL [facility] Blood Venous blood specimen / Unknown 10/13/2024 11:43 AM EST 10/13/2024 1:29 PM EST us Arianna Engle MD LAB BLOOD ORDERABLES Final Result Performing Organization Address [facility]/State/ZIP Co de Phone Number [facility] [address] [place] [phone] * XR Lumbar Spine 2-3 Views (10/13/2024 10:39 AM EST) Anatomical Region Laterality Modality Spine, L-spine Radiographic Nerissa ging 10/13/2024 10:3 9 AM EST Narrative 10/13/2024 11:36 AM EST ?[facility] ?[address] ?[place] [address] ?XRay Report ? Signed ? Patient: Holly,Omaira ?MR#: [id number] ? : 1965 ?Acct:[id number] ? Age/Sex: 59 / F ?ADM Date: 10/13/24 ? Loc: HO.HHCX ? Attending Dr: Arianna Engle MD ? Ordering Physician: Arianna Engle MD ?? Date of Service: 10/13/24 ?? Procedure(s): XR lumbar spine 2-3V ?? Accession Number(s): [id number] ? cc: Arianna Engle MD ? EXAMINATION: [...] DD/ 1039 ? TD/TT: 10/13/24 1052 ? Pin Drafting Machine Operator: ? Procedure Note Dontyreseter, Image - 10/13/[address] [address] XRay Report Signed Patient: Omaira HollyMR#: [id number] : 1965Acct:[id number] Age/Sex: 59 / FADM Date: 10/13/24 Loc: HO.HHCX Attending Dr: Arianna Engle MD Ordering Physician: Arianna Engle MD Date of Service: 10/13/24 Procedure(s): XR lumbar spine 2-3V Accession Number(s): [id number] cc: Arianna Engle MD EXAMINATION: XR LUMBOSACRAL [...] 10/13/24 1133 DD/ 1039 TD/TT: 10/13/24 1052 Pin Drafting Machine Operator: us Arianna Engle MD IMG XR PROCEDURES Final Re sult * BI Mammogram Screening Tomosynthesis Bilateral (04/20/2024 9:00 AM EDT) Anatomical Region Laterality Modality Breast Bilateral Mammography 04/20/2024 9:00 AM EDT Narrative 05/15/2024 2:28 AM EDT ? [facility] ? [address] ?[place], [place] [address] ? Mammography Report ? Signed ? Patient: Holly,Omaira ?MR#: [id number] ? : 1965 ?Acct:[id number] ? Age/Sex: 59 / F ?ADM Date: 04/20/24 ? Loc: HO.MAMMO ? Attending Dr: Heena Abbasi MD ? Ordering Physician: Heena Abbasi MD ?Results: 1Negati ?? ve ? Date of Service: 04/20/24 ?Follow Up: 1 Year From Orig ?? inal Mammogram ? Procedure(s): MM tomosynthesis screening BI ?? Accession Number(s): [id number] ? cc: Heena Abbasi MD ? EXAMINATION: [...] DD/ 0900 ? TD/TT: 04/20/24 0915 ? Pin Drafting Machine Operator: ? Procedure Note Kristy, Amanda - 05/15/2024 [facility] [address] [place] [address] [place] [address] Mammography Report Signed Patient: Omaira HollyMR#: [id number] : 1965Acct:[id number] Age/Sex: 59 / FADM Date: 04/20/24 Loc: [facility] Attending Dr: Heena Abbasi MD Ordering Physician: Heena Abbasiesults: 1Negati ve Date of Service: 04/20/24Follow Up: 1 Year From Orig inal Mammogram Procedure(s): MM tomosynthesis screening BI Accession Number(s): [id number] cc: Heena Abbasi MD EXAMINATION: MM SCREENING [...] OV> 05/15/24223 DD/ 0900 TD/TT: 04/20/24 0915 Pin Drafting Machine Operator: Heena Abbasi MD IM BI PROCEDURES Final Result * (ABNORMAL) Lipid Panel, Standard (02/15/2024 10:47 AM EDT) Triglycerides 55 <150 mg/dL [facility] Comment:Desirable Triglyceri de: less than 150 mg/dLBorderline High Triglyceride 150-199 mg/dLHigh Triglyceride: 200-499 mg/dLVery High Triglyceride: greater than or equal to 5OO mg/dL Cholesterol 175 <200 mg/dL [facility] Comment:Desirable Cholestero l: less than 200 mg/dLBorderline High Cholesterol: 200-239 mg/dLHigh Cholesterol: greater than 239 mg/dL LDL Cholesterol Calculated 101(H) <100 mg/dL [facility] Comment:Desirable LDL: less than 100 mg/dLNear Optimal/Above Optimal LDL: 110- 129 mg/dLBorderline High LDL: 130-159 mg/dLHigh LDL: 160-189 mg/dLVery High LDL: greater than or equal to 190 mg/dL HDL Cholesterol 63 >40 mg/dL [facility] Comment:Desirable HDL: great er than 40 mg/dL Note: This HDL assay may give artificially low results in patients with liver disease. Blood Venous blood specimen / Unknown 02/15/2024 10:47 AM EDT 02/15/2024 10:47 AM EDT us Heena Abbasi MD LAB BLOOD ORDERABLES Final Resul t [facility] [address] [place] [phone] * Cologuard?? colon cancer screening (01/11/2024 9:45 AM EDT) Cologuard Result Negative Negative 01/20/20 12:00 PM EDT [facility] (CLIA #:[id number]) Comment: NEGATIVE TEST RESULT. A negative Cologuard [...] cancer. ??Following a negative Cologuard result, the [employer] Society and U.S. Universal Health Services-Society Task Force screening guidelines recommend a Cologuard re-screening interval of 3 years. References: [employer] Guideline for Colorectal Cancer Screening: https://www.cancer.org/cancer/gcupv-qsehhb-bqqqna/ebgukxmtr-rfbihlhwf-gberlce/ac s-rec ommendations.html.; Dane DK, Feroz CR, Lauro McdanielK, Colorectal Cancer Screening: Recommendations for Physicians and Patients from the U.S. Multi-Society Task Force on Colorectal Cancer Screening , Am J Gastroenterology 2017; 112:3487-6327. TEST DESCRIPTION: Composite algorithmic analysis of stool [...] (Mando Sidhu al, N Engl J Med 2014;370(14):1969-9751.) Cologuard may produce a false negative or false positive result (no colorectal cancer or precancerous polyp present at colonoscopy follow up). A negative Cologuard test result does not guarantee the absence of CRC or advanced adenoma (pre-cancer). The current Cologuard screening interval is every 3 years. ([place] [employer] Society and U.S. Multi-Society Task Force). Cologuard performance data in a 10,000 patient pivotal study using colonoscopy as the reference method can be accessed at the following location: www.Coolstuff/results. Additional description of the Cologuard test process, warnings and precautions can be found at www.IndigoBoomrd.com. Stool specimen (specimen) 01/11/2024 9:45 AM EDT 01/13/2024 10:47 AM EDT us Heena Abbasi MD LAB MOLECULAR DIAGNOSTICS MARY OMALLEY Final Result [facility] (CLIA #:[id number]) [place] [address], from Last 3 Months or Most Recently Relevant to Health Maintenance Insurance C3 DENTAL-[facility] MEDICAID STAND ADULT DENTAL-[place] STAND ADULT Care Teams Cab Worker Relationship Specialty Start Date End Date Heena Abbasi MD [address] [place] [phone] PCP - General Family Medicine 09/05/12 Eli Higuera Telemetry TechPressroom Supervisor 03/17/24 Eli Higuera Telemetry TechPressroom Supervisor 10/05/24
--- OUTSIDE RECORDS SUMMARY | 2024-12-28 11:37 | XMS_ITS | Encounter Summary ---
Author Organization [employer] Address [address] [facility] 7t [place] [address] Care Team Providers Care Automobile Service Station Manager Name Role Phone Heena Abbasi MD Primary Care Provider [phone] Reason for Visit * Reason Onset Date Comments Med Refill 03/30/2023 Encounter Details Date Type Department Care Team ([facility] st Contact Info) Description 03/30/2023 Telephone [facility] & [facility]ED[facility] [address] [place], [place] [phone] Heena Abbasi MD [address] [place] [address] Med Refill Social History Tobacco Use Types [...] - 03/31/2023 8:41 AM EDT Managed by [facility] coumadin clinic. Noted [...] Visit [facility] [address] [place] [address] Ravi Neri [address] [place] [address] 05/28/2025 10:00 AM EDT Office Visit [facility] [address] [place] [address] Karen Shae documented as of this encounter Visit Diagnoses Not on filedocumented in this encounter Care Teams Automobile Service Station Manager Relationship Specialty Start Date End Date Heena Abbasi MD [address] [place] [phone] PCP - General Family Medicine 09/05/12 Eli Higuera Child Care AssociateSafety Investigator/Cause Analyst 03/17/24 Eli Higuera Child Care AssociateSafety Investigator/Cause Analyst 10/05/24 documented as of this encounter
--- OUTSIDE RECORDS SUMMARY | 2024-12-28 11:37 | XMS_ITS | Encounter Summary ---
Author Organization [employer] Address [address] [facility] 7t [place] [address] Care Team Providers Care Birth Certificate Clerk Name Role Phone Heena Abbasi MD Primary Care Provider [phone] Reason for Visit * Reason Onset Date Comments pre tx medication 02/16/2023 Encounter Details Date Type Department Care Team (Late Contact Info) Description 02/16/2023 Telephone [facility] [address] [place], [place] [phone] Socorro Auguste DDS pre tx medication Social [...] Department Care Team (Late Contact Info) Description 12/29/2024 10:00 AM EDT Office Visit [facility] [address] [place] [address] Daron Ravi [address] [place] [address] 05/28/2025 10:00 AM EDT Office Visit [facility] [address] [place] [address] Karen Shea documented as of this encounter Visit Diagnoses Not on filedocumented in this encounter Care Teams Birth Certificate Clerk Relationship Specialty Start Date End Date Heena Abbasi MD [address] [place] [phone] PCP - General Family Medicine 09/05/12 Eli Higuera Tree WrapperSleeve Bottom Feller 03/17/24 Eli Higuera Tree WrapperSleeve Bottom Feller 10/05/24 documented as of this encounter
--- OUTSIDE RECORDS SUMMARY | 2024-12-28 11:37 | XMS_ITS | Encounter Summary ---
Author Organization [employer] Address [address] [facility] 7t [place] [address] Care Team Providers Care Surgical Specialist Name Role Phone Heena Abbasi MD Primary Care Provider [phone] Reason for Visit * Reason Onset Date Comments Med Refill 12/30/2022 Encounter Details Date Type Department Care Team (Late st Contact Info) Description 12/30/2022 Telephone [facility] [address] [place] [address] Heena Abbasi MD [address] [place] [address] Med Refill Social History Tobacco Use Types [...] 12/30/2022 12:39 PM EDT Pt managed by [facility] coumadin clinic. Noted INR of 3.0 on 12/25/22. Will forward request for warfarin refill to PCP to review. * Telephone Encounter - Kemar Davis - 12/30/2022 10:08 AM EDT Tc from pt requesting med refill Warfarin 4 mg Banophen 25 mg documented in this encounter Plan of Treatment Upcoming Encounters Date Type Department Care Team ([facility] st Contact Info) Description 12/29/2024 10:00 AM EDT Office Visit [facility] ADULT DENTAL [address] [place] [address] Ravi Neri [address] [place] [address] 05/28/2025 10:00 AM EDT Office Visit [facility] ADULT DENTAL [address] [place] [address] Karen Shea documented as of this encounter Visit Diagnoses Not on filedocumented in this encounter Care Teams Surgical Specialist Relationship Specialty Start Date End Date Heena Abbasi MD [address] [place] [address] PCP - General Family Medicine 09/05/12 Eli Higuera Single Fold Machine OperatorIce Cream Vendor 03/17/24 Eli Higuera Single Fold Machine OperatorIce Cream Vendor 10/05/24 documented as of this encounter
--- OUTSIDE RECORDS SUMMARY | 2024-12-28 11:37 | XMS_ITS | Encounter Summary ---
Author Organization [employer] Address [address] [facility] 7t [place] [address] Care Team Providers Care Extraction Machine Operator Name Role Phone Heena Abbasi MD Primary Care Provider [phone] Reason for Visit * Reason Onset Date Comments Referral 05/17/2023 Encounter Details Date Type Department Care Team ([facility] st Contact Info) Description 05/17/2023 Telephone [facility] MED & PEDS [address] [place], [place] [phone] Heena Abbasi MD [address] [place] [address] Referral Social History Tobacco Use Types Packs/Day [...] 05/17/2023 10:31 AM EDT Tc from [facility] ([facility]) requesting referral for pt. Location: [address] [place] Date: n/a Time: n/a Specialty: side gluer documented in this encounter Plan of Treatment Upcoming Encounters Date Type Department Care Team ([facility] st Contact Info) Description 12/29/2024 10:00 AM EDT Office Visit [facility] ADULT [facility] [address] [place] [address] Ravi Neri [address] [place] [address] 05/28/2025 10:00 AM EDT Office Visit [facility] [address] [place] [address] Karen Shea documented as of this encounter Visit Diagnoses Not on filedocumented in this encounter Care Teams Extraction Machine Operator Relationship Specialty Start Date End Date Heena Abbasi MD [address] [place] [phone] PCP - General Family Medicine 09/05/12 Eli Higuera Hydrometallurgical EngineerTechnology Sales Representative 03/17/24 Eli Higuera Hydrometallurgical EngineerTechnology Sales Representative 10/05/24 documented as of this encounter
--- OUTSIDE RECORDS SUMMARY | 2024-12-28 11:37 | XMS_ITS | Encounter Summary ---
Author Organization [employer] Address 75 [facility] 7t [place] [address] Care Team Providers Care Cooker Casing Name Role Phone eHena Abbasi MD Primary Care Provider [phone] Encounter Details Date Type Department Care Team (Late Contact Info) Description 01/01/2023 Orders Only [facility] MED & PEDS [address] [place] [address] Heena Abbasi MD 505 [place] [address] Muscle spasm Social History Tobacco Use Types [...] Description 12/29/2024 10:00 AM EDT Office Visit [facility] ADULT DENTAL [address] [place] [address] Ravi Neri 505 [place] [address] 05/28/2025 10:00 AM EDT Office Visit [facility] ADULT DENTAL [address] [place] [address] Karen Shea documented as of this encounter Visit Diagnoses Diagnosis Muscle spasm Spasm of muscle documented in this encounter Care Teams Cooker Casing Relationship Specialty Start Date End Date Heena Abbasi MD [address] [place] [address] PCP - General Family Medicine 09/05/12 Eli Higuera Reel RepairerDispatcher Refinery 03/17/24 Eli Higuera Reel RepairerDispatcher Refinery 10/05/24 documented as of this encounter
--- OUTSIDE RECORDS SUMMARY | 2024-12-28 11:37 | XMS_ITS | Encounter Summary ---
Author Organization [employer] Address 75 [facility] 7t [place] [address] Care Team Providers Care Arbitrator Name Role Phone Heena Abbasi MD Primary Care Provider [phone] Encounter Details Date Type Department Care Team (Late Contact Info) Description 04/05/2023 Orders Only [facility] MED & PEDS [address] [place] [address] Heena Abbasi MD 505 [place] [address] Social History Tobacco Use Types Packs/Day Years [...] 12/29/2024 10:00 AM EDT Office Visit [facility] ADULT DENTAL [address] [place] [address] Ravi Neri 505 [place] [address] 05/28/2025 10:00 AM EDT Office Visit [facility] ADULT DENTAL [address] [place] [address] Karen Shea documented as of this encounter Visit Diagnoses Not on filedocumented in this encounter Care Teams Arbitrator Relationship Specialty Start Date End Date Heena Abbasi MD [address] [place] [address] PCP - General Family Medicine 09/05/12 Eli Higuera Operations TrainerFruit Vendor 03/17/24 Eli Higuera Operations TrainerFruit Vendor 10/05/24 documented as of this encounter
--- OUTSIDE RECORDS SUMMARY | 2024-12-28 11:37 | XMS_ITS | Encounter Summary ---
Author Organization [employer] Address [address] [facility] 7t [place] [address] Care Team Providers Care Carpet Loom Fixer Name Role Phone Heena Abbasi MD Primary Care Provider [phone] Reason for Visit * Reason Onset Date Comments Med Refill 06/09/2023 Encounter Details Date Type Department Care Team ([facility] st Contact Info) Description 06/09/2023 Telephone [facility] [address] [place], [place] [phone] Heena Abbasi MD 505 [place] [address] Med Refill Social History Tobacco Use Types [...] message pt has refills at pharmacy . Growth Hacker contacted pharmacy to confirm . [facility] had a system error that was corrected and patient will be picking up script later today . * Telephone Encounter - Mari Miller LPN - 06/09/2023 11:54 AM EDT 90 day supply was sent to [facility] #[id number] on 12/29/22 with 3 refills. * Telephone Encounter - Brianne Wade - 06/09/2023 11:27 AM EDT Tc from pt requesting medication refill on gemfibrozil (Lopid) 600 MG tablet to be sent to [facility]/pharmacy #[id number] - [place], [place] - [address] documented in this encounter Plan of Treatment Upcoming Encounters Date Type Department Care Team (Late st Contact Info) Description 12/29/2024 10:00 AM EDT Office Visit [facility] ADULT DENTAL [address] [place] [address] Ravi Neri 505 [place] [address] 05/28/2025 10:00 AM EDT Office Visit [facility] ADULT DENTAL [address] [place] [address] Karen Shea documented as of this encounter Visit Diagnoses Not on filedocumented in this encounter Care Teams Carpet Loom Fixer Relationship Specialty Start Date End Date Heena Abbasi MD [address] [place] [address] PCP - General Family Medicine 09/05/12 Eli Higuera Supervisor GeneralBrick Dropper 03/17/24 Eli Higuera Supervisor GeneralBrick Dropper 10/05/24 documented as of this encounter
--- OUTSIDE RECORDS SUMMARY | 2024-12-28 11:37 | XMS_ITS | Encounter Summary ---
Author Organization [employer] Address 75 [facility] 7t [place] [address] Care Team Providers Care Leather Belt Loop Cutter Name Role Phone Heena Abbasi MD Primary Care Provider [phone] Encounter Details Date Type Department Care Team (Late Contact Info) Description 03/05/2023 Telephone [facility] ADULT DENTAL [address] [place] [address] Anthony Arnold [address] [place] [address] Social History Tobacco Use Types Packs/Day Years [...] AM EDT Patient called in with her INSIDE SALES from her coumadin clinic to report INR number of 3.2. [facility] that number was too high and patient [...] Description 12/29/2024 10:00 AM EDT Office Visit [facility] ADULT DENTAL [address] [place], [place] [phone] Ravi Neri 505 [place] [address] 05/28/2025 10:00 AM EDT Office Visit [facility] ADULT DENTAL [address] [place], [place] [phone] Karen Shea documented as of this encounter Visit Diagnoses Not on filedocumented in this encounter Care Teams Leather Belt Loop Cutter Relationship Specialty Start Date End Date Heena Abbasi MD [address] [place] [address] PCP - General Family Medicine 09/05/12 lEi Higuera Application TesterLatent Fingerprint Examiner 03/17/24 Eli Higuera Application TesterLatent Fingerprint Examiner 10/05/24 documented as of this encounter
== END 2024-12-28 10:14 | disposition home or self-care (01) ==
LOC: HO.ACS 10:01
PROVIDERS: PCP Student in an Organized Health Care Education/Training Program; Visit Provider Internal Medicine Medical Oncology
DX: Z79.01 Long term (current) use of anticoagulants (principal)

== ENCOUNTER → 2024-12-28 10:01 | Outpatient (BNVA) | payer MEDICAID, SELFPAY | PROVIDERS: PCP Student in an Organized Health Care Education/Training Program; Visit Provider Internal Medicine Medical Oncology | DX: I26.99 Other pulmonary embolism without acute cor pulmonale (principal); Z51.81 Encounter for therapeutic drug level monitoring; Z79.01 Long term (current) use of anticoagulants | CPT/HCPCS: 85610; 99211 ==

== ENCOUNTER 2025-01-24 09:54 | Outpatient (AMB) | payer MEDICAID, SELFPAY ==
--- NOTE | 2025-01-24 10:20 | MHC.OFFVISCO ---
Intake Intake Visit Reasons: Anticoagulation Allergies No Known Allergies Allergy (Mild, Verified 01/24/25 10:17) N/A Medication List - Last Reconciled 01/24/25 by Itzel Dick RN acetaminophen ER (Tylenol 8 Hour) 650 mg PO Q8H PRN ammonium lactate 12% 1 appl topical BID ilxmqsg-uyiuqxcgcusls-rjjaectw 250-250-65 mg (Pain Reliever Plus) 0 tabs PO [calcium,magnesium,zinc and vitamin D3 1 tab PO DAILY] cetirizine 10 mg PO chlorhexidine gluconate 4% (Betasept Surgical Scrub) topical DAILY PRN bnxvckrb-pefmvx-xgqlmxrg acid 500 mg-800 mcg- 50 mg (Collagen 1500 Plus C) 3 caps PO DAILY cyclobenzaprine 5 mg PO BEDTIME diphenhydramine HCl (Banophen) 25 mg PO BEDTIME PRN famotidine 20 mg PO DAILY fluoxetine 10 mg PO QAM fluticasone propionate 0.005% 1 appl topical DAILY gemfibrozil 600 mg PO BID ketotifen fumarate 0.025%(0.035%) 1 drp ophthalmic (eye) BID lidocaine-prilocaine 2.5-2.5 % grams topical DAILY PRN methocarbamol 500 mg PO QID pantoprazole 20 mg PO DAILY trazodone 50 mg PO BEDTIME PRN triamcinolone acetonide 0.025% 1 appl topical BID triamcinolone acetonide 0.025% 1 appl topical BID warfarin 4 mg See Protocol PO DAILY Nursing Note NO CP,SOB,DIET/MED CHANGES,FALLS OR SXOF BLEEDING. BOOST SLIGHTLY TO 6MGM TODAY THEN RESUME 4MGM DAILY AND FOLLOW-UP IN 4 WEEKS. GOOD UNDERSTANDING OF DOSING INSTR. NO GREENS TODAY Questionnaires HAS-BLED Does the patient had uncontrolled Hypertension?: No Does the patient have renal disease?: No Does the patient have liver disease?: No Does the patient have a history of stroke?: Yes Has the patient had major bleeding or predisposition to bleeding?: Yes Does the patient have labile INRs?: No Is the patient over 65 years of age?: No Is the patient on medications that gives them a predisposition to bleeding?: Yes Does the patient use alcohol?: No HAS-BLED Score: 3 CHADSVASC Age: <65 Gender: Female Does the patient have a history of CHF?: No Does the patient have a history of Hypertension?: Yes Does the patient have a history of Stroke/TIA/Thromboembolism?: Yes Does the patient have a history of Vascular Disease (prior WV, PAD or aortic plaque)?: Yes Does the patient have a history of Diabetes?: No CHADS VACS Score: 5 Jason Prediction Score Rsk VTE Active Cancer: No Previous VTE, excluding superficial vein thrombosis: Yes Reduced mobility: No Already known Thrombophilic Condition: Yes With-in last month Trauma and/or Surgery: No Elderly 70 year or older: No Heart and/or Respiratory Failure: No Acute Myocardial infarction and/or Ischemic Stroke: Yes Acute Infection and/or Rheumatologic Disorder: No Obesity (BMI 30 or greater): No Ongoing Hormonal Treatment: No Score: 7 Jason Score less than 4; Low Risk of VTE Jason Score 4 or greater; High Risk of VTE Coding Level of Care Code Est Patient Level 1 Diagnoses Current use of anticoagulant therapy Z79.01 Assessment & Plan Assessment & Plan (1) Current use of anticoagulant therapy: Code(s): Z79.01 - assisted (current) use of anticoagulants Category: Medical
[2025-01-24 10:25] LABS: Prothrombin Time Whole Bld POC 23.2 sec (11.1-13.5); ~PT, ~INR - Anti Coag Clinic 1.9 (0.9-1.1)
--- OUTSIDE RECORDS SUMMARY | 2025-01-24 10:53 | XMS_ITS | Encounter Summary ---
Author Organization [employer] Address 75 [facility] 7t [place] [address] Care Team Providers Care Counselor Education Professor Name Role Phone Heena Abbasi MD Primary Care Provider [phone] Reason for Visit * Reason Onset Date Comments Referral 07/29/2023 Encounter Details Date Type Department Care Team ([facility] st Contact Info) Description 07/29/2023 Telephone [facility] MEDICINE [address] [place] [address] Heena Abbasi MD [address] [place], [place] [phone] Referral Social History Tobacco Use Types Packs/Day [...] encounter Miscellaneous Notes * Telephone Encounter - Nancyemiliano Rosea - 07/29/2023 3:53 PM EST Call [...] Care Team (Late st Contact Info) Description 01/26/2025 10:00 AM EDT Office Visit [facility] ADULT DENTAL 505 [place] [address] Ravi Neri 505 [place] [address] 04/05/2025 10:15 AM EDT Office Visit [facility] MED & PEDS 505 [place] [address] Heena Abbasi MD 505 [place] [address] 05/28/2025 10:00 AM EDT Office Visit [facility] ADULT DENTAL 505 [place] [address] Karen Shea documented as of this encounter Visit Diagnoses Not on filedocumented in this encounter Care Teams Counselor Education Professor Relationship Specialty Start Date End Date Heena Abbasi MD [address] [place] [address] PCP - General Family Medicine 09/05/12 Eli Higuera Employee Relations AdministratorFurniture Designer 03/17/24 Eli Higuera Employee Relations AdministratorFurniture Designer 10/05/24 documented as of this encounter
--- OUTSIDE RECORDS SUMMARY | 2025-01-24 10:53 | XMS_ITS | Encounter Summary ---
Author Organization [employer] Address 75 [facility] 7t [place] [address] Care Team Providers Care Heating Equipment Repairer Name Role Phone Heena Abbasi MD Primary Care Provider [phone] Encounter Details Date Type Department Care Team (Late st Contact Info) Description 02/29/2024 Telephone [facility]ULT [facility] [address] [place] [address] Perri Noble, SOREN Social History Tobacco Use [...] Description 01/26/2025 10:00 AM EDT Office Visit [facility] ADULT DENTAL [address] [place] [address] Ravi Neri 505 [place] [address] 04/05/2025 10:15 AM EDT Office Visit [facility] MED & PEDS [address] [place] [address] Heena Abbasi MD 505 [place] [address] 05/28/2025 10:00 AM EDT Office Visit [facility] ADULT DENTAL [address] [place] [address] Karen Shea documented as of this encounter Visit Diagnoses Not on filedocumented in this encounter Additional Health Concerns Assessment Noted Time PHQ-9 Depression Total Score: 5 12/31/19 24 10:57 AM EDT documented as of this encounter Care Teams Heating Equipment Repairer Relationship Specialty Start Date End Date Heena Abbasi MD [address] [place] [address] PCP - General Family Medicine 09/05/12 Eli Higuera Utility AgentEtymology Teacher 03/17/24 Eli Higuera Utility AgentEtymology Teacher 10/05/24 documented as of this encounter
--- OUTSIDE RECORDS SUMMARY | 2025-01-24 10:54 | XMS_ITS | Encounter Summary ---
Author Organization [employer] Address 75 [facility] 7t [place] [address] Care Team Providers Care Flumer Name Role Phone Heena Abbasi MD Primary Care Provider [phone] Reason for Visit * Reason Onset Date Comments Med Refill 06/09/2023 Encounter Details Date Type Department Care Team ([facility] st Contact Info) Description 06/09/2023 Telephone [facility] MED & PEDS [address] [place], [place] [phone] Heena Abbasi MD 505 [place] [address] Med Refill Social History Tobacco Use Types [...] message pt has refills at pharmacy . Coiler Operator contacted pharmacy to confirm . [facility] had a system error that was corrected and patient will be picking up script later today . * Telephone Encounter - Mari Miller LPN - 06/09/2023 11:54 AM EDT 90 day supply was sent to [facility] #[id number] on 12/29/22 with 3 refills. * Telephone Encounter - Brianne Wade - 06/09/2023 11:27 AM EDT Tc from pt requesting medication refill on gemfibrozil (Lopid) 600 MG tablet to be sent to [facility]/pharmacy #[id number] - [place], [place] - [address] documented in this encounter Plan of Treatment Upcoming Encounters Date Type Department Care Team (Late st Contact Info) Description 01/26/2025 10:00 AM EDT Office Visit [facility] ADULT DENTAL [address] [place] [address] Ravi Neri 505 [place] [address] 04/05/2025 10:15 AM EDT Office Visit [facility] MED & PEDS [address] [place] [address] Heena Abbasi MD 505 [place] [address] 05/28/2025 10:00 AM EDT Office Visit [facility] ADULT DENTAL [address] [place] [address] Karen Shea documented as of this encounter Visit Diagnoses Not on filedocumented in this encounter Care Teams Flumer Relationship Specialty Start Date End Date Heena Abbasi MD [address] [place] [address] PCP - General Family Medicine 09/05/12 Eli Higuera Camp AssistantSaxophone Assembler 03/17/24 Eli Higuera Camp AssistantSaxophone Assembler 10/05/24 documented as of this encounter
--- OUTSIDE RECORDS SUMMARY | 2025-01-24 10:54 | XMS_ITS | Encounter Summary ---
Author Organization [employer] Address 75 [facility] 7t [place] [address] Care Team Providers Care Universal Grinder Tool Name Role Phone Heena Abbasi MD Primary Care Provider [phone] Encounter Details Date Type Department Care Team (Late Contact Info) Description 03/05/2023 Telephone [facility] ADULT DENTAL [address] [place] [address] Anthony Arnold [address] [place] [address] Social History Tobacco Use Types Packs/Day Years [...] AM EDT Patient called in with her FRUIT SPRAYER from her coumadin clinic to report INR number of 3.2. [facility] publishing specialist that number was too high and patient will not be able to be seen. Informed patient to call next week to check schedule for new appt date that will coincide with a new coumadin INR apptdate as well. Patient understood DR documented in this encounter Plan of Treatment Upcoming Encounters Date Type Department Care Team ([facility] Contact Info) Description 01/26/2025 10:00 AM EDT Office Visit [facility] ADULT DENTAL [address] [place] [address] Ravi Neri [address] [place] [address] 04/05/2025 10:15 AM EDT Office Visit [facility] MED & PEDS [address] [place], [place] [phone] Heena Abbasi MD [address] [place] [address] 05/28/2025 10:00 AM EDT Office Visit [facility] ADULT DENTAL [address] [place] [address] Karen Shea documented as of this encounter Visit Diagnoses Not on filedocumented in this encounter Care Teams Universal Grinder Tool Relationship Specialty Start Date End Date Heena Abbasi MD [address] [place] [address] PCP - General Family Medicine 09/05/12 Eli Higuera Physical Fitness TrainerLead Java Software Engineer 03/17/24 Eli Higuera Physical Fitness TrainerLead Java Software Engineer 10/05/24 documented as of this encounter
--- OUTSIDE RECORDS SUMMARY | 2025-01-24 10:54 | XMS_ITS | Encounter Summary ---
Author Organization [employer] Address 75 [facility] 7t [place] [address] Care Team Providers Care Director Of Acquisition Marketing Name Role Phone Heena Abbasi MD Primary Care Provider [phone] Reason for Visit * Reason Onset Date Comments Med Refill 03/30/2023 Encounter Details Date Type Department Care Team ([facility] st Contact Info) Description 03/30/2023 Telephone [facility] MED & PEDS [address] [place], [place] [phone] Heena Abbasi MD 505 [place] [address] Med Refill Social History Tobacco Use Types [...] - 03/31/2023 8:41 AM EDT Managed by [facility] coumadin clinic. Noted INR result of 3.0 [...] Description 01/26/2025 10:00 AM EDT Office Visit [facility] ADULT DENTAL [address] [place] [address] Jacob Neriio 505 [place] [address] 04/05/2025 10:15 AM EDT Office Visit [facility] MED & PEDS [address] [place], [place] [phone] Heena Abbasi MD 505 [place] [address] 05/28/2025 10:00 AM EDT Office Visit [facility] ADULT DENTAL [address] [place] [address] Karen Shea documented as of this encounter Visit Diagnoses Not on filedocumented in this encounter Care Teams Director Of Acquisition Marketing Relationship Specialty Start Date End Date Heena Abbasi MD [address] [place] [address] PCP - General Family Medicine 09/05/12 Eli Higuera Picture FramerAdmissions Manager Rn 03/17/24 Eli Higuera Picture FramerAdmissions Manager Rn 10/05/24 documented as of this encounter
--- OUTSIDE RECORDS SUMMARY | 2025-01-24 10:54 | XMS_ITS | Encounter Summary ---
Author Organization [employer] Address 75 [facility] 7t [place] [address] Care Team Providers Care Running Instructor Name Role Phone Heena Abbasi MD Primary Care Provider [phone] Reason for Visit * Reason Onset Date Comments Dr. Neri Patient inquiry 01/24/2025 Encounter Details Date Type Department Care Team ([facility] st Contact Info) Description 01/24/2025 Telephone [facility] 505 [place], [place] [phone] Ravi Neri 505 [place], [place] [phone] Dr. Neri Patient inquiry Social History Tobacco Use Types Packs/Day Years [...] encounter Miscellaneous Notes * Telephone Encounter - Will Clements - 01/24/2025 10:42 AM EDT Patient called saying that they just got out of a medical appt 01/24. They stated that their blood was at 1.9. They were questioning if they should come to their appt on 01/26. Please contact patient. Patient will be calling tmr. documented in this encounter Plan of Treatment Upcoming Encounters Date Type Department Care Team (Late st Contact Info) Description 01/26/2025 10:00 AM EDT Office Visit [facility] ADULT DENTAL [address] [place] [address] Ravi Neri 505 [place] [address] 04/05/2025 10:15 AM EDT Office Visit [facility] MED & PEDS [address] [place] [address] Heena Abbasi MD 505 [place] [address] 05/28/2025 10:00 AM EDT Office Visit [facility] ADULT DENTAL [address] [place] [address] Karen Shea documented as of this encounter Visit Diagnoses Not on filedocumented in this encounter Additional Health Concerns Assessment Noted Time PHQ-9 Depression Total Score: 5 12/31/19 10:57 AM EDT documented as of this encounter Care Teams Running Instructor Relationship Specialty Start Date End Date Heena Abbasi MD [address] [place] [address] PCP - General Family Medicine 09/05/12 Eli Higuera Parts SpecialistContainer Shop Welder 03/17/24 Eli Higuera Parts SpecialistContainer Shop Welder 10/05/24 documented as of this encounter
--- OUTSIDE RECORDS SUMMARY | 2025-01-24 10:54 | XMS_ITS | Encounter Summary ---
Author Organization [employer] Address 75 [facility] 7t [place] [address] Care Team Providers Care Cna Ltc Name Role Phone Heena Abbasi MD Primary Care Provider Reason for Visit * Reason Onset Date Comments pre tx medication 02/16/2023 Encounter Details Date Type Department Care Team (Late Contact Info) Description 02/16/2023 Telephone [facility] ADULT DENTAL [address] [place] [address] Socorro Auguste DDS pre tx medication Social [...] Department Care Team (Late Contact Info) Description 01/26/2025 10:00 AM EDT Office Visit [facility] ADULT DENTAL 505 [place] [address] Jacob Neriio 505 [place] [address] 04/05/2025 10:15 AM EDT Office Visit [facility] MED & PEDS [address] [place], [place] [phone] Heena Abbasi MD 505 [place] [address] 05/28/2025 10:00 AM EDT Office Visit [facility] ADULT DENTAL 505 [place], [place] [phone] Karen Shea documented as of this encounter Visit Diagnoses Not on filedocumented in this encounter Care Teams Cna Ltc Relationship Specialty Start Date End Date Heena Abbasi MD [address] [place] [address] PCP - General Family Medicine 09/05/12 Eli Higuera Multiple Tube Winding Machine OperatorBody Bumper 03/17/24 Eli Higuera Multiple Tube Winding Machine OperatorBody Bumper 10/05/24 documented as of this encounter
--- OUTSIDE RECORDS SUMMARY | 2025-01-24 10:54 | XMS_ITS | Clinical Summary ---
Author Organization [employer] Address 75 [facility] 7t [place] [address] Care Team Providers Care Rotary Helper Name Role Phone Heena Abbasi MD Primary Care Provider [phone] Allergies No known active allergies Medications Calcium [...] dental appointment. 12 capsule 02/18/20 23 Active Additional Information Patient not taking.Reported on [...] sleep. 90 tablet 3 10/25/19 24 Active triamcinolone (Kenalog) 0.025 % ointment [...] ELIO TABLETA [facility] 30 tablet 2 04/20/20 24 Active traZODone [...] at bedtime for dry eyes. 30 mL 10/31/19 25 026 Active warfarin (Coumadin) 4 MG tabletIndicatio ns:Chronic atrial fibrillation (CMS/HCC) TAKE 1 TABLET BY MOUTH DAILY OR DIRECTED BY THE COUMADIN CLINIC 30 tablet 11/10/19 25 Active pantoprazole (ProtoNix) 20 MG EC tabletIndicatio ns:GERD without esophagitis TAKE 1 TABLET BY MOUTH BEFORE BREAKFAST 90 tablet 11/14/19 25 Active gemfibrozil (Lopid) 600 MG tabletIndicatio ns:Hypercholest erolemia TOME ELIO TABLETA POR VIA ORAL 2 TIMES DAILY 180 tablet 01/13/20 25 Active gemfibrozil (Lopid) 600 MG tabletIndicatio ns:Hypercholest erolemia TOME ELIO TABLETA POR VIA ORAL 2 TIMES DAILY 180 tablet 12/31/19 24 025 Discontinued Active Problems Problem Noted [...] Gentle stretching Short course of flexeril, I christian counselor about side effect somnolence Acetaminophen 1300mg [...] Encounters Date Type Department Care Team Description 01/24/2025 Telephone [facility] ADULT DENTAL [address] [place] [address] Patient inquiry 01/24/2025 Orders Only GENERIC EXTERNAL DATA DEPARTMENT Provider, Generic External Data 01/24/2025 Refill [facility] MED & PEDS [address] [place] [address] Heena Abbasi MD Chronic atrial fibrillation ([facility]/HCC) 01/11/2025 Refill [facility] MED & PEDS [address] [place] [address] Heena Abbasi MD Hypercholesterolemia 12/29/2024 10:00 AM EDT Office Visit [facility] ADULT DENTAL [address] [place] [address] Ravi Neri 12/28/2024 Orders Only GENERIC EXTERNAL DATA DEPARTMENT Provider, Generic External Data 12/18/2024 Outside Procedure [facility] OPTOMETRY [address] [place] [address] Oswaldo, Sheba, OD Presbyopia (Primary Dx) 12/12/2024 2:00 PM EDT Office Visit [facility] OPTOMETRY [address] [place] [address] Oswaldo, Sheba, OD Hypermetropia, bilateral (Primary Dx) 12/01/2024 Population Health Risk Score [facility] (C3) Department [address] [phone] Provider, Population Health Generic 11/24/2024 11:00 AM EST Office Visit [facility] ADULT DENTAL [address] [place], [place] [phone] Karen Shea 11/23/2024 Telephone [facility] ADULT DENTAL [address] [place], [place] [phone] Vicki Golden DDS Dr. Reynoso medical clearance ?? 11/23/2024 Orders Only GENERIC EXTERNAL DATA DEPARTMENT Provider, Generic External Data 11/14/2024 Telephone [facility] MEDICINE [address] [place], [place] [phone] Heena Abbasi MD Med request 11/08/2024 Refill [facility] MED & PEDS [address] [place], [place] [phone] Lauren Amaral MD Chronic atrial fibrillation ([facility]) 10/31/2024 10:30 AM EST Office Visit [facility] OPTOMETRY [address] [place] [address] Tarka, Allegra, OD Hypermetropia, bilateral (Primary Dx); Dry eyes, bilateral; Squamous blepharitis of upper and lower eyelids of both eyes; Combined forms of age-related cataract of both eyes 10/31/2024 Travel from Last 3 Months Immunizations Name Administration [...] 01/26/2025 10:00 AM EDT Office Visit [facility] ADULT DENTAL [address] [place] [address] DaronRavi mitchell [address] [place] [address] 04/05/2025 10:15 AM EDT Office Visit [facility] MED & PEDS [address] [place] [address] Heena Abbasi MD [address] [place] [address] 05/28/2025 10:00 AM EDT Office Visit [facility] ADULT DENTAL [address] [place] [address] Karen Shea Health Maintenance Due Date Last Done Comments CT Colonography 1965 Colonoscopy 1965 FIT 1965 FOBT 1965 HIV Screening 1965 Sigmoidoscopy 1965 Alcohol/Substance Use Screening 1976 Hepatitis C Screening 02/11/1982 Pap Smear 02/11/1985 [...] Additional history exists SDOH Screening 12/20/2024 12/21/2023 Depression Screening 12/30/2024 12/31/2023, 12/31/19 24 Mammogram 04/20/2025 04/20/2024, 03/20, 03/06/2022 Dental Oral Exam 05/28/2025 11/24/2024, , 07/29/2022 Dental Prophylaxis 05/28/2025 11/24/2024, 0 12/14/2023, 07/29/2022 Dental X-Ray: Bitewings 11/25/2025 11/25/19, 12/14/2023, 07/29/2022 Tobacco Screening 12/29/2025 12/29/2024 Dental X-Ray: Full Mouth 12/14/2026 12/14/2023, 12/2018 [...] Comments PROTHROMBIN TIME WHOLE BLD POC Routine 01/24/2025 10:20 AM EDT ~PT, ~INR - ANTI COAG CLINIC Routine 01/24/2025 10:20 AM EDT CASE PRESENTATION, DETAILED AND EXTENSIVE TREATMENT PLANNING Routine 12/29/2024 10:00 AM EDT 25 F(V) RESIN-BASED COMPOSITE - 1 SURF, ANTERIOR Routine 12/29/2024 10:00 AM EDT 24 F(V) RESIN-BASED COMPOSITE - 1 SURF, ANTERIOR Routine 12/29/2024 10:00 AM EDT 23 F(V) RESIN-BASED COMPOSITE - 1 SURF, ANTERIOR Routine 12/29/2024 10:00 AM EDT PROTHROMBIN TIME WHOLE BLD POC Routine 12/28/2024 [...] COAG CLINIC Routine 11/23/2024 10:03 AM EST BI MAMMOGRAM SCREENING TOMOSYNTHESIS BILATERAL [...] * (ABNORMAL) PROTHROMBIN TIME WHOLE BLD POC (01/24/2025 10:20 AM EDT) Only the most recent of3 resultswithin the time period is included. Protime 23.2(H) 11.1 - 13.5 sec [facility] 01/24/2025 10:2 0 AM EDT 01/24/2025 10:24 AM EDT Generic External Data Provider LAB BLOOD ORDERAB LES Final Result Performing Organization Address City/[facility] Co de Phone Number [facility] [address] [place] [phone] * (ABNORMAL) ~PT, ~INR - ANTI COAG CLINIC (01/24/2025 10:20 AM EDT) Only the most recent of3 resultswithin the time period is included. Prothrombin Time INR 1.9(H) 0.9 - 1.1 [facility] Comment:METER #: [id number] TERNATIONAL NORMALIZED RATIO (INR) REFERENCE RANGES Reference RangeFor patients not on anticoagulant therapy: 0.9 - 1.1INR ranges for oral anticoagulanttherapy:For prevention and treatment of venous thrombosis and pulmonary embolism: 2.0 - 3.0For acute myocardial infarction with aspirin therapy: 2.0 - 3.0For acute myocardial infarction without aspirin therapy: 3.0 - 4.0For patients with mechanical prosthetic heart valves: 2.5 - 3.5 01/24/2025 10:2 0 AM EDT 01/24/2025 10:24 AM EDT [employer] External Data Provider LAB BLOOD ORDERAB LES Final Result Performing Organization Address City/[facility]/ZIP Co de Phone Number [facility] [address] [place] [phone] * BI Mammogram Screening Tomosynthesis Bilateral (04/20/2024 9:00 AM EDT) Anatomical Region Laterality Modality Breast Bilateral Mammography 04/20/2024 9:00 AM EDT Narrative 05/15/2024 2:28 AM EDT ? [facility] ? [address] ?[place], [place] [address] ? Mammography Report ? Signed ? Patient: Holly,Omaira ?MR#: [id number] ? : 1965 ?Acct:[id number] ? Age/Sex: 59 / F ?ADM Date: 04/20/24 ? Loc: HO.MAMMO ? Attending Dr: Heena Abbasi MD ? Ordering Physician: Heena Abbasi MD ?Results: 1Negati ?? ve ? Date of Service: 04/20/24 ?Follow Up: 1 Year From Orig ?? inal Mammogram ? Procedure(s): MM tomosynthesis screening BI ?? Accession Number(s): [id number] ? cc: Heena Abbasi MD ? EXAMINATION: [...] DD/ 0900 ? TD/TT: 04/20/24 0915 ? Trial Justice: ? Procedure Note Kristy, Image - 05/15/2024 [facility] [address] [place] [address] Mammography Report Signed Patient: Jose Holly#: [id number] : 1965Acct:[id number] Age/Sex: 59 / FADM Date: 04/20/24 Loc: HO.MAMMO Attending Dr: Heena Abbasi MD Ordering Physician: Heena Abbasi MDResults: 1Negati ve Date of Service: 04/20/24Follow Up: 1 Year From Orig inal Mammogram Procedure(s): MM tomosynthesis screening BI Accession Number(s): [id number] cc: Heena Abbasi MD EXAMINATION: MM SCREENING [...] OV> 05/15/24223 DD/ 9 TD/TT: 04/20/24 0915 Trial Justice: us Heena Abbasi MD IMG BI PROCEDURES Final Result * (ABNORMAL) Lipid Panel, Standard (02/15/2024 10:47 AM EDT) Triglycerides 55 <150 mg/dL [facility] Comment:Desirable Triglyceri de: less than 150 mg/dLBorderline High Triglyceride 150-199 mg/dLHigh Triglyceride: 200-499 mg/dLVery High Triglyceride: greater than or equal to 5OO mg/dL Cholesterol 175 <200 mg/dL [facility] Comment:Desirable Cholestero l: less than 200 mg/dLBorderline High Cholesterol: 200-239 mg/dLHigh Cholesterol: greater than 239 mg/dL LDL Cholesterol Calculated 101(H) <100 mg/dL [facility] Comment:Desirable LDL: less than 100 mg/dLNear Optimal/Above Optimal LDL: 110- 129 mg/dLBorderline High LDL: 130-159 mg/dLHigh LDL: 160-189 mg/dLVery High LDL: greater than or equal to 190 mg/dL HDL Cholesterol 63 >40 mg/dL [facility] Comment:Desirable HDL: great er than 40 mg/dL Note: This HDL assay may give artificially low results in patients with liver disease. Blood Venous blood specimen / Unknown 02/15/2024 10:47 AM EDT 02/15/2024 10:47 AM EDT us Heena Abbasi MD LAB BLOOD ORDERABLES Final Resul t [facility] [address] [place] [phone] * Cologuard?? colon cancer screening (01/11/2024 9:45 AM EDT) Cologuard Result Negative Negative 01/20/20 12:00 PM EDT [employer] (CLIA #:[id number]) Comment: NEGATIVE TEST RESULT. A negative Cologuard [...] screened with both Cologuard and colonoscopy. (Mando T. et al, N Engl J Med 2014;370(14):1286- 1297) The normal value (reference range) for this assay is negative. COLOGUARD RE-SCREENING RECOMMENDATION: Periodic colorectal cancer screening is an important part of preventive healthcare for asymptomatic individuals at average risk for colorectal cancer. ??Following a negative Cologuard result, the [employer] [place] [employer] and U.S. Multi-Society Task Force screening guidelines recommend a Cologuard re-screening interval of 3 years. References: [employer] [place] [employer] Guideline for Colorectal Cancer Screening: https://www.cancer.org/cancer/ldhty-fmrkkv-znkswz/xvrjfccrw-lqbguakqt-nqgbboq/ac s-rec ommendations.html.; Dane DK, Feroz GALE, Lauro MOONEY, Colorectal Cancer Screening: Recommendations for Physicians and Patients from the U.S. Multi-Society Task Force on Colorectal Cancer Screening , Am J Gastroenterology 2017; 112:9543-3330. TEST DESCRIPTION: Composite algorithmic analysis of stool [...] Dobson et al, N Engl J Med 2014;370(14):8542-4290.) Cologuard may produce a false negative or false positive result (no colorectal cancer or precancerous polyp present at colonoscopy follow up). A negative Cologuard test result does not guarantee the absence of CRC or advanced adenoma (pre-cancer). The current Cologuard screening interval is every 3 years. ([employer] [place] [employer] and U.S. Multi-Society Task Force). Cologuard performance data in a 10,000 patient pivotal study using colonoscopy as the reference method can be accessed at the following location: www.[employer].IForem/results. Additional description of the Cologuard test process, warnings and precautions can be found at www.Mazu NetworksogHortaurd.com. Stool specimen (specimen) 01/11/2024 9:45 AM EDT 01/13/2024 10:47 AM EDT Heena Abbasi MD LAB MOLECULAR DIAGNOSTICS ORDERA BLES Final Result [employer] (CLIA #:[id number]) [place] [address], [place] [phone] from Last 3 Months or Most Recently Relevant to Health Maintenance Insurance C3 D[facility]AL-[facility] MEDICAID STAND ADULT DENTAL-[facility] MEDICAID STAND ADULT Care Teams Rotary Helper Relationship Specialty Start Date End Date Heena Abbasi MD [address] [place] [phone] PCP - General Family Medicine 09/05/12 Eli Higuera Commercial Credit Portfolio ManagerC Architect 03/17/24 Eli Higuera Commercial Credit Portfolio ManagerC Architect 10/05/24
--- OUTSIDE RECORDS SUMMARY | 2025-01-24 10:54 | XMS_ITS | Encounter Summary ---
Author Organization [employer] Address 75 [facility] 7t [place] [address] Care Team Providers Care Speech Teacher Name Role Phone Heena Abbasi MD Primary Care Provider [phone] Reason for Visit * Reason Onset Date Comments Med Refill 12/30/2022 Encounter Details Date Type Department Care Team ([facility] st Contact Info) Description 12/30/2022 Telephone [facility] MEDICINE [address] [place] [address] Heena Abbasi MD [address] [place], [place] [phone] Med Refill Social History Tobacco Use Types [...] 12/30/2022 12:39 PM EDT Pt managed by [facility] coumadin clinic. Noted INR of 3.0 on [...] Description 01/26/2025 10:00 AM EDT Office Visit [facility] ADULT DENTAL [address] [place] [address] Ravi Neri [address] [place] [address] 04/05/2025 10:15 AM EDT Office Visit [facility] MED & PEDS [address] [place], [place] [phone] Heena Abbasi MD [address] [place] [address] 05/28/2025 10:00 AM EDT Office Visit [facility] ADULT DENTAL [address] [place] [address] Karen Shea documented as of this encounter Visit Diagnoses Not on filedocumented in this encounter Care Teams Speech Teacher Relationship Specialty Start Date End Date Heena Abbasi MD [address] [place] [phone] PCP - General Family Medicine 09/05/12 Eli Higuera Barrel LevelerWafer Mounter 03/17/24 Eli Higuera Barrel LevelerWafer Mounter 10/05/24 documented as of this encounter
--- OUTSIDE RECORDS SUMMARY | 2025-01-24 10:54 | XMS_ITS | Encounter Summary ---
Author Organization [employer] Address 75 [facility] 7t [place] [address] Care Team Providers Care Telephoto Engineer Name Role Phone Heena Abbasi MD Primary Care Provider [phone] Reason for Visit * Reason Onset Date Comments Dr. Golden medical clearance ?? 11/23/2024 Encounter Details Date Type Department Care Team (Late st Contact Info) Description 11/23/2024 Telephone [facility] ADULT DENTAL [address] [place] [address] Vicki Golden, CHIKIS [address] [place], [place] [phone] Dr. Golden medical clearance ?? Social History [...] 01/26/2025 10:00 AM EDT Office Visit [facility] ADULT DENTAL [address] [place] [address] Ravi Neri [address] [place] [address] 04/05/2025 10:15 AM EDT Office Visit [facility] MED & PEDS [address] [place] [address] Heena Abbasi MD [address] [place] [address] 05/28/2025 10:00 AM EDT Office Visit [facility] ADULT DENTAL [address] [place] [address] Karen Shea documented as of this encounter Visit Diagnoses Not on filedocumented in this encounter Additional Health Concerns Assessment Noted Time PHQ-9 Depression Total Score: 5 12/31/19 24 10:57 AM EDT documented as of this encounter Care Teams Telephoto Engineer Relationship Specialty Start Date End Date Heena Abbasi MD [address] [place] [phone] PCP - General Family Medicine 09/05/12 Eli Higuera Utility EngineerAirway Controller 03/17/24 Eli Higuera Utility EngineerAirway Controller 10/05/24 documented as of this encounter
--- OUTSIDE RECORDS SUMMARY | 2025-01-24 10:54 | XMS_ITS | Encounter Summary ---
Author Organization [employer] Address 75 [facility] 7t [place] [address] Care Team Providers Care Ripsaw Matcher Name Role Phone Heena Abbasi MD Primary Care Provider [phone] Encounter Details Date Type Department Care Team (Late Contact Info) Description 12/09/2022 Orders Only [facility] MED & PEDS [address] [place] [address] Heena Abbasi MD [address] [place] [address] Social History Tobacco Use Types Packs/Day Years [...] 01/26/2025 10:00 AM EDT Office Visit [facility] ADULT DENTAL [address] [place] [address] Ravi Neri [address] [place] [address] 04/05/2025 10:15 AM EDT Office Visit [facility] MED & PEDS [address] [place] [address] Heena Abbasi MD [address] [place] [address] 05/28/2025 10:00 AM EDT Office Visit [facility] ADULT DENTAL [address] [place] [address] Karen Shea documented as of this encounter Visit Diagnoses Not on filedocumented in this encounter Care Teams Ripsaw Matcher Relationship Specialty Start Date End Date Heena Abbasi MD [address] [place] [address] PCP - General Family Medicine 09/05/12 Eli Higuera Production Utility WorkerDigital Content Marketing Manager 03/17/24 Eli Higuera Production Utility WorkerDigital Content Marketing Manager 10/05/24 documented as of this encounter
--- OUTSIDE RECORDS SUMMARY | 2025-01-24 10:54 | XMS_ITS | Encounter Summary ---
Author Organization [facility] Address [address] [facility] 7t [place] [address] Care Team Providers Care Tail End Rider Name Role Phone Heena Abbasi MD Primary Care Provider [phone] Encounter Details Date Type Department Care Team (Latest Contact Info) Description 07/29/2022 Abstract [facility] CONVERSIONS Dental, Provider, DDS Social [...] 01/26/2025 10:00 AM EDT Office Visit [facility] ADULT DENTAL [address] [place] [address] Ravi Neri [address] [place] [address] 04/05/2025 10:15 AM EDT Office Visit [facility] MED & PEDS [address] [place] [address] Heena Abbasi MD [address] [place] [address] 05/28/2025 10:00 AM EDT Office Visit [facility] ADULT DENTAL [address] [place] [address] Karen Shea documented as of this encounter Visit Diagnoses Not on filedocumented in this encounter Care Teams Tail End Rider Relationship Specialty Start Date End Date Heena Abbasi MD [address] [place] [phone] PCP - General Family Medicine 09/05/12 Eli Higuera Oyster Bed WorkerAutomobile Sales Representative 03/17/24 Eli Higuera Oyster Bed WorkerAutomobile Sales Representative 10/05/24 documented as of this encounter
--- OUTSIDE RECORDS SUMMARY | 2025-01-24 10:54 | XMS_ITS | Encounter Summary ---
Author Organization [employer] Address 75 [facility] 7t [place] [address] Care Team Providers Care Senior Java Data Architect Name Role Phone Heena Abbasi MD Primary Care Provider [phone] Encounter Details Date Type Department Care Team (Late st Contact Info) Description 01/24/2025 Orders Only GENERIC EXTERNAL DATA DEPARTMENT [...] Description 01/26/2025 10:00 AM EDT Office Visit [facility] ADULT DENTAL [address] [place], [place] [phone] Ravi Neri [address] [place] [address] 04/05/2025 10:15 AM EDT Office Visit [facility] MED & PEDS [address] [place], [place] [phone] Heena Abbasi MD [address] [place], [place] [phone] 05/28/2025 10:00 AM EDT Office Visit [facility] ADULT DENTAL [address] [place] [address] Karen Shea documented as of this encounter Procedures Procedure Name Priority Date/Time Associated Diagnosis Comments PROTHROMBIN TIME WHOLE BLD POC Routine 01/24/2025 10:20 AM EDT ~PT, ~INR - ANTI COAG CLINIC Routine 01/24/2025 10:20 AM EDT documented in this encounter Results * (ABNORMAL) PROTHROMBIN TIME WHOLE BLD POC (01/24/2025 10:20 AM EDT) Protime 23.2(H) 11.1 - 13.5 sec [facility] 01/24/2025 10:2 0 AM EDT 01/24/2025 10:24 AM EDT us Generic External Data Provider LAB BLOOD ORDERAB LES Final Result [facility] [address] [place] [phone] [phone] * (ABNORMAL) ~PT, ~INR - ANTI COAG CLINIC (01/24/2025 10:20 AM EDT) Prothrombin Time INR 1.9(H) 0.9 - 1.1 [facility] Comment:METER #: [id number] TERNATIONAL NORMALIZED RATIO (INR) REFERENCE RANGES Reference [...] 0 AM EDT 01/24/2025 10:24 AM EDT us Generic External Data Provider LAB BLOOD ORDERAB LES Final Result [facility] [address] [place] [phone] [phone] documented in this encounter Visit Diagnoses Not on filedocumented in this encounter Additional Health Concerns Assessment Noted Time PHQ-9 Depression Total Score: 5 12/31/19 24 10:57 AM EDT documented as of this encounter Care Teams Senior Java Data Architect Relationship Specialty Start Date End Date eHena Abbasi MD [address] [place] [phone] PCP - General Family Medicine 09/05/12 Eli Higuera Custodial LaborerAutomatic Presser 03/17/24 Eli Higuera Custodial LaborerAutomatic Presser 10/05/24 documented as of this encounter
--- OUTSIDE RECORDS SUMMARY | 2025-01-24 10:54 | XMS_ITS | Encounter Summary ---
Author Organization [employer] Address 75 [facility] 7t [place] [address] Care Team Providers Care Oracle Developer Name Role Phone Heena Abbasi MD Primary Care Provider [phone] Encounter Details Date Type Department Care Team (Late Contact Info) Description 04/05/2023 Orders Only [facility] MED & PEDS [address] [place] [address] Heena Abbasi MD [address] [place] [address] Social History Tobacco Use Types Packs/Day Years [...] 10:00 AM EDT Office Visit [facility] ADULT DENTAL [address] [place] [address] Ravi Neri [address] [place] [address] 04/05/2025 10:15 AM EDT Office Visit [facility] MED & PEDS [address] [place] [address] Heena Abbasi MD [address] [place] [address] 05/28/2025 10:00 AM EDT Office Visit [facility] ADULT DENTAL [address] [place] [address] Karen Shea documented as of this encounter Visit Diagnoses Not on filedocumented in this encounter Care Teams Oracle Developer Relationship Specialty Start Date End Date Heena Abbasi MD [address] [place] [address] PCP - General Family Medicine 09/05/12 Eli Higuera Frame CleanerTitle I Paraprofessional 03/17/24 Eli Higuera Frame CleanerTitle I Paraprofessional 10/05/24 documented as of this encounter
--- OUTSIDE RECORDS SUMMARY | 2025-01-24 10:54 | XMS_ITS | Encounter Summary ---
Author Organization [employer] Address 75 [facility] 7t [place] [address] Care Team Providers Care General Manager Farm Name Role Phone Heena Abbasi MD Primary Care Provider Encounter Details Date Type Department Care Team (Late st Contact Info) Description 12/31/2023 Orders Only [facility] MED & PEDS [address] [place], [place] [phone] Heena Abbasi MD [address] [place], [place] [phone] Social History Tobacco Use Types Packs/Day Years [...] [facility] [address] [place] [address] Ravi Neri [address] [place] [address] 04/05/2025 10:15 AM EDT Office Visit [facility] MED & PEDS [address] [place] [address] Heena Abbasi MD [address] [place] [address] 05/28/2025 10:00 AM EDT Office Visit [facility] ADULT DENTAL [address] [place] [address] Karen Shea documented as of this encounter Visit Diagnoses Not on filedocumented in this encounter Additional Health Concerns Assessment Noted Time PHQ-9 Depression Total Score: 5 12/31/19 24 10:57 AM EDT documented as of this encounter Care Teams General Manager Farm Relationship Specialty Start Date End Date Heena Abbasi MD [address] [place] [phone] PCP - General Family Medicine 09/05/12 Eli Higuera Long Chain Dyeing Machine OperatorRn Documentation Specialist 03/17/24 Eli Higuera Long Chain Dyeing Machine OperatorRn Documentation Specialist 10/05/24 documented as of this encounter
--- OUTSIDE RECORDS SUMMARY | 2025-01-24 10:54 | XMS_ITS | Encounter Summary ---
Author Organization [employer] [facility] Address [address] [facility] 7t [place] [address] Care Team Providers Care Chief Technical Officer Name Role Phone Heena Abbasi MD Primary Care Provider [phone] Encounter Details Date Type Department Care Team (Latest Contact Info) Description 11/21/2018 Abstract [facility] [place] [facility] CONVERSIONS Dental, Provider, DDS Social History [...] Description 01/26/2025 10:00 AM EDT Office Visit [facility] ADULT DENTAL [address] [place] [address] Ravi Neri 505 [place] [address] 04/05/2025 10:15 AM EDT Office Visit [facility] MED & PEDS [address] [place] [address] Heena Abbasi MD 505 [place] [address] 05/28/2025 10:00 AM EDT Office Visit [facility] ADULT DENTAL [address] [place] [address] Karen Shea documented as of this encounter Visit Diagnoses Not on filedocumented in this encounter Care Teams Chief Technical Officer Relationship Specialty Start Date End Date Heena Abbasi MD [address] [place] [address] PCP - General Family Medicine 09/05/12 Eli Higuera Help Desk ConsultantKohinoor Operator 03/17/24 Eli Higuera Help Desk ConsultantKohinoor Operator 10/05/24 documented as of this encounter
--- OUTSIDE RECORDS SUMMARY | 2025-01-24 10:54 | XMS_ITS | Encounter Summary ---
Author Organization [employer] Address [address] [facility] 7t [place] [address] Care Team Providers Care Screw Machine Tender Name Role Phone Heena Abbasi MD Primary Care Provider [phone] Reason for Visit * Reason Onset Date Comments Referral 05/17/2023 Encounter Details Date Type Department Care Team ([facility] st Contact Info) Description 05/17/[address] [facility] MED & PEDS [address] [place], [place] [phone] Heena Abbasi MD 505 [place] [address] Referral Social History Tobacco Use Types Packs/Day [...] 05/17/2023 10:31 AM EDT Tc from candie ([facility]) requesting referral for pt. Location: [place] [address], [place] Date: n/a Time: n/a Specialty: absence management consultant documented in this encounter Plan of Treatment Upcoming Encounters Date Type Department Care Team (Late st Contact Info) Description 01/26/2025 10:00 AM EDT Office Visit [facility] ADULT DENTAL [address] [place] [address] Ravi Neri 505 [place] [address] 04/05/2025 10:15 AM EDT Office Visit [facility] MED & PEDS [address] [place], [place] [phone] Heena Abbasi MD 505 [place] [address] 05/28/2025 10:00 AM EDT Office Visit [facility] ADULT DENTAL [address] [place] [address] Karen Shea documented as of this encounter Visit Diagnoses Not on filedocumented in this encounter Care Teams Screw Machine Tender Relationship Specialty Start Date End Date Heena Abbasi MD [address] [place] [address] PCP - General Family Medicine 09/05/12 Eli Higuera Tube InspectorPainting And Coating Worker 03/17/24 Eli Higuera Tube InspectorPainting And Coating Worker 10/05/24 documented as of this encounter
--- OUTSIDE RECORDS SUMMARY | 2025-01-24 10:54 | XMS_ITS | Encounter Summary ---
Author Organization [email or web address] Address [address] [facility] 7t [place] [address] Care Team Providers Care Chief Knowledge Officer Name Role Phone Heena Abbasi MD Primary Care Provider [phone] Encounter Details Date Type Department Care Team (Late Contact Info) Description 09/10/2022 Orders Only [facility] [address] [place] [address] Tierra Ahsby LPN Social History Tobacco Use Types Packs/Day [...] [facility] ADULT DENTAL [address] [place] [address] Ravi Neri 505 [place] [address] 04/05/2025 10:15 AM EDT Office Visit [facility] MED & PEDS [address] [place] [address] Heena Abbasi MD 505 [place] [address] 05/28/2025 10:00 AM EDT Office Visit [facility] ADULT DENTAL [address] [place] [address] Karen Shea documented as of this encounter Visit Diagnoses Not on filedocumented in this encounter Care Teams Chief Knowledge Officer Relationship Specialty Start Date End Date Heena Abbasi MD [address] [place] [address] PCP - General Family Medicine 09/05/12 Eli Higuera Lumber ScalerFireworks Assembler 03/17/24 Eli Higuera Lumber ScalerFireworks Assembler 10/05/24 documented as of this encounter
--- OUTSIDE RECORDS SUMMARY | 2025-01-24 10:54 | XMS_ITS | Encounter Summary ---
Author Organization [employer] Address [address] [facility] 7t [place] [address] Care Team Providers Care Reefer Engineer Name Role Phone Heena Abbasi MD Primary Care Provider [phone] Encounter Details Date Type Department Care Team (Late Contact Info) Description 01/01/2023 Orders Only [facility] MED & PEDS [address] [place] [address] Heena Abbasi MD 505 [place] [address] Muscle spasm Social History Tobacco Use Types [...] 01/26/2025 10:00 AM EDT Office Visit [facility] ADULT DENTAL [address] [place] [address] Ravi Neri 505 [place] [address] 04/05/2025 10:15 AM EDT Office Visit [facility] MED & PEDS [address] [place] [address] Heena Abbasi MD [address] [place] [address] 05/28/2025 10:00 AM EDT Office Visit [facility] CHC ADULT DENTAL [address] [place] [address] Karen Shea documented as of this encounter Visit Diagnoses Diagnosis Muscle spasm Spasm of muscle documented in this encounter Care Teams Reefer Engineer Relationship Specialty Start Date End Date Heena Abbasi MD [address] [place] [address] PCP - General Family Medicine 09/05/12 Eli Higuera Archival Studies ProfessorTransition Teacher 03/17/24 Eli Higuera Archival Studies ProfessorTransition Teacher 10/05/24 documented as of this encounter
--- OUTSIDE RECORDS SUMMARY | 2025-01-24 10:54 | XMS_ITS | Encounter Summary ---
Author Organization [employer] Address [address] [facility] 7t [place] [address] Care Team Providers Care Automobile Locator Name Role Phone Heena Abbasi MD Primary Care Provider [phone] Reason for Visit * Reason Comments Med Refill Encounter Details Date Type Department Care Team ([facility] st Contact Info) Description 01/24/2025 Refill [facility] MED & PEDS [address] [place], [place] [phone] Heena Abbasi MD 505 [place] [address] Chronic atrial fibrillation (CMS/HCC) Social History Tobacco [...] 01/26/2025 10:00 AM EDT Office Visit [facility] AD[facility] [address] [place] [address] Ravi Neri 505 [place] [address] 04/05/2025 10:15 AM EDT Office Visit [facility] MED & PEDS [address] [place] [address] Heena Abbasi MD 505 [place] [address] 05/28/2025 10:00 AM EDT Office Visit [facility] AD[facility] [address] [place] [address] Karen Shea documented as of this encounter Visit Diagnoses Diagnosis Chronic atrial fibrillation (CMS/HCC) Atrial fibrillation documented in this encounter Additional Health Concerns Assessment Noted Time PHQ-9 Depression Total Score: 5 12/31/19 24 10:57 AM EDT documented as of this encounter Care Teams Automobile Locator Relationship Specialty Start Date End Date Heena Abbasi MD [address] [place] [address] PCP - General Family Medicine 09/05/12 Eli Higuera Student Driving InstructorClinical Analyst 03/17/24 Eli Higuera Student Driving InstructorClinical Analyst 10/05/24 documented as of this encounter
== END 2025-01-24 10:31 | disposition home or self-care (01) ==
LOC: HO.ACS 09:54
PROVIDERS: PCP Student in an Organized Health Care Education/Training Program; Visit Provider Internal Medicine Medical Oncology
DX: Z79.01 Long term (current) use of anticoagulants (principal)

== ENCOUNTER → 2025-01-24 09:54 | Outpatient (BNVA) | payer MEDICAID, SELFPAY | PROVIDERS: PCP Student in an Organized Health Care Education/Training Program; Visit Provider Internal Medicine Medical Oncology | DX: I26.99 Other pulmonary embolism without acute cor pulmonale (principal); Z51.81 Encounter for therapeutic drug level monitoring; Z79.01 Long term (current) use of anticoagulants | CPT/HCPCS: 85610; 99211 ==

== ENCOUNTER 2025-02-21 10:03 | Outpatient (AMB) | payer MEDICAID, SELFPAY ==
--- NOTE | 2025-02-21 10:34 | MHC.OFFVISCO ---
Intake Intake Visit Reasons: Anticoagulation Allergies No Known Allergies Allergy (Mild, Verified 02/21/25 10:31) N/A Medication List - Last Reconciled 02/21/25 by Halima Cortez RN acetaminophen ER (Tylenol 8 Hour) 650 mg PO Q8H PRN ammonium lactate 12% 1 appl topical BID wefbsnv-exidqyatqprno-rrhicfjs 250-250-65 mg (Pain Reliever Plus) 0 tabs PO [calcium,magnesium,zinc and vitamin D3 1 tab PO DAILY] cetirizine 10 mg PO chlorhexidine gluconate 4% (Betasept Surgical Scrub) topical DAILY PRN jceohgls-qsbabr-zhdpduys acid 500 mg-800 mcg- 50 mg (Collagen 1500 Plus C) 3 caps PO DAILY cyclobenzaprine 5 mg PO BEDTIME diphenhydramine HCl (Banophen) 25 mg PO BEDTIME PRN famotidine 20 mg PO DAILY fluoxetine 10 mg PO QAM fluticasone propionate 0.005% 1 appl topical DAILY gemfibrozil 600 mg PO BID ketotifen fumarate 0.025%(0.035%) 1 drp ophthalmic (eye) BID lidocaine-prilocaine 2.5-2.5 % grams topical DAILY PRN methocarbamol 500 mg PO QID pantoprazole 20 mg PO DAILY trazodone 50 mg PO BEDTIME PRN triamcinolone acetonide 0.025% 1 appl topical BID triamcinolone acetonide 0.025% 1 appl topical BID warfarin 4 mg See Protocol PO DAILY Nursing Note INR: 2.0- in therapeutic range 2-3 Medications and supplements reviewed- taking tylenol for shoulder pain had increased her greens No changes in health, diet, medications, or supplements, Denies any signs and symptoms of bleeding or bruising or clotting. Bleeding, bruising, clotting discussed Nutritional guidance given - no greens for 2-3 days, eat reds to raise food list reviewed Dose: 4 mg x 7 F/U INR: pt req 4 weeks Patient verbalizes understanding of instructions given pt to acs with ase master mechanic Coding Level of Care Code Est Patient Level 1 Diagnoses Current use of anticoagulant therapy Z79.01 Assessment & Plan Assessment & Plan (1) Current use of anticoagulant therapy: Code(s): Z79.01 - snf (current) use of anticoagulants Category: Medical
[2025-02-21 10:36] LABS: Prothrombin Time Whole Bld POC 23.9 sec (11.1-13.5)
--- OUTSIDE RECORDS SUMMARY | 2025-02-21 10:38 | XMS_ITS | Encounter Summary ---
Author Organization [employer] Address [address] [facility] 7t [place] [address] Care Team Providers Care Server Security Administrator Name Role Phone Heena Abbasi MD Primary Care Provider [phone] Reason for Visit * Reason Onset Date Comments Referral 07/29/2023 Encounter Details Date Type Department Care Team ([facility] st Contact Info) Description 07/29/2023 Telephone [facility] [address] [place] [address] Heena Abbasi MD [address] [place], [place] [phone] Referral Social History Tobacco Use Types Packs/Day [...] Miscellaneous Notes * Telephone Encounter - Nancy Avni - 07/29/2023 3:53 PM EST Call WM [...] Care Team (Late st Contact Info) Description 04/05/2025 10:15 AM EDT Office Visit [facility] MED & PEDS [address] [place] [address] Heena Abbasi MD [address] [place] [address] 05/28/2025 10:00 AM EDT Office Visit [facility] ADULT DENTAL [address] [place] [address] Karen Shea documented as of this encounter Visit Diagnoses Not on filedocumented in this encounter Care Teams Server Security Administrator Relationship Specialty Start Date End Date Heena Abbasi MD [address] [place] [address] PCP - General Family Medicine 09/05/12 Eli Higuera Card FolderMail Processing Machine Operator 03/17/24 Eli Higuera Card FolderMail Processing Machine Operator 10/05/24 documented as of this encounter
== END 2025-02-21 10:42 | disposition home or self-care (01) ==
LOC: HO.ACS 10:03
PROVIDERS: PCP Student in an Organized Health Care Education/Training Program; Visit Provider Internal Medicine Medical Oncology
DX: Z79.01 Long term (current) use of anticoagulants (principal)

== ENCOUNTER → 2025-02-21 10:03 | Outpatient (BNVA) | payer MEDICAID, SELFPAY | PROVIDERS: PCP Student in an Organized Health Care Education/Training Program; Visit Provider Internal Medicine Medical Oncology | DX: I26.99 Other pulmonary embolism without acute cor pulmonale (principal); Z79.01 Long term (current) use of anticoagulants; Z51.81 Encounter for therapeutic drug level monitoring | CPT/HCPCS: 85610; 99211 ==

== ENCOUNTER 2025-03-21 09:57 | Outpatient (AMB) | payer MEDICAID, SELFPAY ==
--- OUTSIDE RECORDS SUMMARY | 2025-03-21 10:20 | XMS_ITS | Encounter Summary ---
Author Organization [employer] Address 75 [facility] 7t [place] [address] Care Team Providers Care Drafter Chief Design Name Role Phone Heena Abbasi MD Primary Care Provider [phone] Reason for Visit * Reason Onset Date Comments Referral 07/29/2023 Encounter Details Date Type Department Care Team ([facility] st Contact Info) Description 07/29/2023 Telephone [facility] MEDICINE [address] [place] [address] Heena Abbasi MD 505 [place], [place] [phone] Referral Social History Tobacco Use Types Packs/Day [...] Care Team (Late st Contact Info) Description 05/08/2025 10:15 AM EDT Office Visit [facility] MED & PEDS [address] [place] [address] Heena Abbasi MD 505 [place] [address] 05/28/2025 10:00 AM EDT Office Visit [facility] ADULT DENTAL [address] [place] [address] Karen Shea documented as of this encounter Visit Diagnoses Not on filedocumented in this encounter Care Teams Drafter Chief Design Relationship Specialty Start Date End Date Heena Abbasi MD [address] [place] [address] PCP - General Family Medicine 09/05/12 Eli Higuera Bridge MaintainerBall Racker 03/17/24 Eli Higuera Bridge MaintainerBall Racker 10/05/24 Eli Higuera Bridge MaintainerBall Racker 02/22/25 documented as of this encounter
[2025-03-21 10:26] LABS: Prothrombin Time Whole Bld POC 34.4 sec (11.1-13.5); ~PT, ~INR - Anti Coag Clinic 2.9 (0.9-1.1)
--- NOTE | 2025-03-21 10:29 | MHC.OFFVISCO ---
Intake Intake Visit Reasons: Anticoagulation Allergies No Known Allergies Allergy (Mild, Verified 03/21/25 10:19) N/A Medication List - Last Reconciled 03/21/25 by Itzel Dick RN acetaminophen ER (Tylenol 8 Hour) 650 mg PO Q8H PRN ammonium lactate 12% 1 appl topical BID atenvty-joplrujcjalwn-fosezxrg 250-250-65 mg (Pain Reliever Plus) 0 tabs PO [calcium,magnesium,zinc and vitamin D3 1 tab PO DAILY] cetirizine 10 mg PO chlorhexidine gluconate 4% (Betasept Surgical Scrub) topical DAILY PRN nyutckds-tdejvk-zhmqtmgx acid 500 mg-800 mcg- 50 mg (Collagen 1500 Plus C) 3 caps PO DAILY cyclobenzaprine 5 mg PO BEDTIME diphenhydramine HCl (Banophen) 25 mg PO BEDTIME PRN famotidine 20 mg PO DAILY fluoxetine 10 mg PO QAM fluticasone propionate 0.005% 1 appl topical DAILY gemfibrozil 600 mg PO BID ketotifen fumarate 0.025%(0.035%) 1 drp ophthalmic (eye) BID lidocaine-prilocaine 2.5-2.5 % grams topical DAILY PRN methocarbamol 500 mg PO QID pantoprazole 20 mg PO DAILY trazodone 50 mg PO BEDTIME PRN triamcinolone acetonide 0.025% 1 appl topical BID triamcinolone acetonide 0.025% 1 appl topical BID warfarin 4 mg See Protocol PO DAILY Nursing Note NO CP,SOB,DIET/MED CHANGES,FALLS OR SX OF BLEEDING. CONTINUE PRESENT DOSE AND FOLLOW-UP IN 4 WEEKS GOOD UNDERSTANDING OF DOSING INSTR. Coding Level of Care Code Est Patient Level 1 Diagnoses Current use of anticoagulant therapy Z79.01 Assessment & Plan Assessment & Plan (1) Current use of anticoagulant therapy: Code(s): Z79.01 - terminal make up operator (current) use of anticoagulants Category: Medical
== END 2025-03-21 10:31 | disposition home or self-care (01) ==
LOC: HO.ACS 09:57
PROVIDERS: PCP Student in an Organized Health Care Education/Training Program; Visit Provider Internal Medicine Medical Oncology
DX: Z79.01 Long term (current) use of anticoagulants (principal)

== ENCOUNTER → 2025-03-21 09:57 | Outpatient (BNVA) | payer MEDICAID, SELFPAY | PROVIDERS: PCP Student in an Organized Health Care Education/Training Program; Visit Provider Internal Medicine Medical Oncology | DX: Z79.01 Long term (current) use of anticoagulants (principal) | CPT/HCPCS: 85610; 99211 ==

== ENCOUNTER 2025-04-18 09:58 | Outpatient (AMB) | payer MEDICAID, SELFPAY ==
--- NOTE | 2025-04-18 10:16 | MHC.OFFVISCO ---
Intake Intake Visit Reasons: Anticoagulation Allergies No Known Allergies Allergy (Mild, Verified 04/18/25 10:13) N/A Medication List - Last Reconciled 04/18/25 by Halima Cortez RN acetaminophen ER (Tylenol 8 Hour) 650 mg PO Q8H PRN ammonium lactate 12% 1 appl topical BID auanbit-bejrkchjajgrg-cvficpym 250-250-65 mg (Pain Reliever Plus) 0 tabs PO [calcium,magnesium,zinc and vitamin D3 1 tab PO DAILY] cetirizine 10 mg PO chlorhexidine gluconate 4% (Betasept Surgical Scrub) topical DAILY PRN tnusvppf-hyqnbc-gojjiwzu acid 500 mg-800 mcg- 50 mg (Collagen 1500 Plus C) 3 caps PO DAILY cyclobenzaprine 5 mg PO BEDTIME diphenhydramine HCl (Banophen) 25 mg PO BEDTIME PRN famotidine 20 mg PO DAILY fluoxetine 10 mg PO QAM fluticasone propionate 0.005% 1 appl topical DAILY gemfibrozil 600 mg PO BID ketotifen fumarate 0.025%(0.035%) 1 drp ophthalmic (eye) BID lidocaine-prilocaine 2.5-2.5 % grams topical DAILY PRN methocarbamol 500 mg PO QID pantoprazole 20 mg PO DAILY trazodone 50 mg PO BEDTIME PRN triamcinolone acetonide 0.025% 1 appl topical BID triamcinolone acetonide 0.025% 1 appl topical BID warfarin 4 mg See Protocol PO DAILY Nursing Note INR: 2.8- in therapeutic range of 2-3 Medications and supplements reviewed- no changes No changes in health, diet, medications, or supplements, Denies any signs and symptoms of bleeding or bruising or clotting. Bleeding, bruising, clotting discussed Nutritional guidance given Dose: 4mg x 7 F/U INR: 4 weeks Patient verbalizes understanding of instructions given Coding Level of Care Code Est Patient Level 1 Diagnoses Current use of anticoagulant therapy Z79.01 Results AMB INR Fingerstick AMB INR Fingerstick 2.8 Last Edit by Halima Cortez RN on 04/18/25 10:18 Assessment & Plan Assessment & Plan (1) Current use of anticoagulant therapy: Code(s): Z79.01 - [facility] (current) use of anticoagulants Category: Medical
--- OUTSIDE RECORDS SUMMARY | 2025-04-18 10:44 | XMS_ITS | Encounter Summary ---
Author Organization [employer] Address [address] [facility] 7t [place] [address] Care Team Providers Care Box Stacker Name Role Phone Heena Abbasi MD Primary Care Provider [phone] Reason for Visit * Reason Onset Date Comments Referral 07/29/2023 Encounter Details Date Type Department Care Team ([facility] st Contact Info) Description 07/29/2023 Telephone [facility] MEDICINE [address] [place] [address] Heena Abbasi MD [address] [place], [place] [phone] Referral Social History Tobacco Use Types Packs/Day [...] Description 05/08/2025 10:15 AM EDT Office Visit [facility] MED & PEDS [address] [place] [address] Heena Abbasi MD [address] [place] [address] 05/28/2025 10:00 AM EDT Office Visit [facility] ADULT DENTAL [address] [place] [address] Karen Shea documented as of this encounter Visit Diagnoses Not on filedocumented in this encounter Care Teams Box Stacker Relationship Specialty Start Date End Date Heena Abbasi MD [address] [place] [address] PCP - General Family Medicine 09/05/12 Eli Higuera Functional ArchitectPacu Nurse 03/17/24 Eli Higuera Functional ArchitectPacu Nurse 10/05/24 Eli Higuera Functional ArchitectPacu Nurse 02/22/25 documented as of this encounter
[2025-04-18 16:06] LABS: Prothrombin Time Whole Bld POC 33.5 sec (11.1-13.5); ~PT, ~INR - Anti Coag Clinic 2.8 (0.9-1.1)
== END 2025-04-18 10:23 | disposition home or self-care (01) ==
LOC: HO.ACS 09:58
PROVIDERS: PCP Student in an Organized Health Care Education/Training Program; Visit Provider Internal Medicine Medical Oncology
DX: Z79.01 Long term (current) use of anticoagulants (principal)

== ENCOUNTER → 2025-04-18 09:58 | Outpatient (BNVA) | payer MEDICAID, SELFPAY | PROVIDERS: PCP Student in an Organized Health Care Education/Training Program; Visit Provider Internal Medicine Medical Oncology | DX: I26.99 Other pulmonary embolism without acute cor pulmonale (principal); Z79.01 Long term (current) use of anticoagulants; Z51.81 Encounter for therapeutic drug level monitoring | CPT/HCPCS: 85610; 99211 ==

== ENCOUNTER 2025-05-03 09:17 | Outpatient (REF) | payer MEDICAID, SELFPAY ==
--- NOTE | ~2025-05-03 | MM_ITS ---
EXAMINATION: MM SCREENING DIGITAL BREAST TOMOSYNTHESIS, BILATERAL CLINICAL INFORMATION: Screening. Asymptomatic. COMPARISON: Mammography: Comparison is made with available priors TECHNIQUE: Digital breast mammography with tomosynthesis is performed in both the craniocaudal and mediolateral oblique views along with computer-aided detection (CAD). FINDINGS: There are scattered areas of fibroglandular density (ACR BI-RADS breast composition Category b). There are no significant masses, abnormal calcifications, or other abnormalities. MM/MM tomosynthesis screening BI IMPRESSION: No mammographic evidence of malignancy. ASSESSMENT: BI-RADS BI-RADS 1 - Negative RECOMMENDATION: Routine annual mammography screening. 1 year F/U This examination should not preclude the clinical evaluation of a suspicious palpable abnormality. This patient's information was entered into a reminder system with a target due date for their next mammogram. Electronically signed by: Nat Potter DO 05/08/2025 11:48 AM EDT
--- OUTSIDE RECORDS SUMMARY | 2025-05-03 09:44 | XMS_ITS | Encounter Summary ---
Author Organization [employer] Address 75 [facility] 7t [place] [address] Care Team Providers Care Clinical Nursing Professor Name Role Phone Heena Abbasi MD Primary Care Provider [phone] Reason for Visit * Reason Onset Date Comments Referral 07/29/2023 Encounter Details Date Type Department Care Team ([facility] st Contact Info) Description 07/29/2023 Telephone [facility] MEDICINE [address] [place] [address] Heena Abbasi MD [address] [place], [place] [phone] Referral Social History Tobacco Use Types Packs/Day [...] Care Team (Late st Contact Info) Description 05/23/2025 10:15 AM EDT Office Visit [facility] MED & PEDS [address] [place] [address] Heena Abbasi MD [address] [place] [address] 05/28/2025 10:00 AM EDT Office Visit [facility] ADULT DENTAL [address] [place] [address] Karen Shea documented as of this encounter Visit Diagnoses Not on filedocumented in this encounter Care Teams Clinical Nursing Professor Relationship Specialty Start Date End Date Heena Abbasi MD [address] [place] [address] PCP - General Family Medicine 09/05/[address]era [address]County Court Judge 03/17/[address]uera [address] Court Judge 10/05/[address]era [address] Judge 02/22/25 documented as of this encounter
== END 2025-05-03 09:18 | disposition home or self-care (01) ==
LOC: HO.MAMMO 09:17
PROVIDERS: PCP Student in an Organized Health Care Education/Training Program; Visit Provider Student in an Organized Health Care Education/Training Program
DX: Z12.31 Encounter for screening mammogram for malignant neoplasm of breast (principal)
CPT/HCPCS: 77063; 77067

== ENCOUNTER → 2025-05-03 09:30 | Outpatient (BNV) | payer MEDICAID, SELFPAY | PROVIDERS: PCP Student in an Organized Health Care Education/Training Program; Visit Provider Internal Medicine | DX: Z12.31 Encounter for screening mammogram for malignant neoplasm of breast (principal) | CPT/HCPCS: 77063; 77067 ==

== ENCOUNTER 2025-05-16 09:59 | Outpatient (AMB) | payer MEDICAID, SELFPAY ==
--- OUTSIDE RECORDS SUMMARY | 2025-05-10 09:00 | XMS_ITS | Encounter Summary ---
Author Organization [employer] Address [address] [facility] 7t [place] [address] Care Team Providers Care Stitch Burnisher Name Role Phone Heena Abbasi MD Primary Care Provider [phone] Reason for Visit * Reason Comments Dentures Delivery of a lower partail Encounter Details Date Type Department Care Team ([facility] Contact Info) Description 05/10/2025 9:00 AM EDT Office Visit [facility] [address] [place], [place] [id number] Ravi Neri [address] [place], [place] [phone] Social History Tobacco Use Types Packs/Day Years [...] housing situation today? I have phyllis vicente 05/15/[address] you li ve. Do you have problems with any of the following? None of the above 05/15/2025 Food Insecurity Answer Date Recorded Within the past 12 months, y ou worried that your food would run out before you got money to buy more: Never True 05/15/2025 Within the past 12 months,th e food you bought just didn't last and you didn't have enough money to get more: Never True Transportation Answer Date Recorded In the past 12 months, has l ack of transportation kept you from medical appts, meetings, work or from getting things needed for daily living? No 05/15/2025 Utilities Answer Date Recorded In the past 12 months, has t he electric, gas, oil or water company threatened to shut off services in your home? No 05/15/2025 Depression Answer Date Recorded Patient Health Questionnaire-2 Score 2 12/31/2023 Internet Access Answer Date Recorded Internet Access Q1 Yes 05/15/2025 Internet Access Q2 Not on file 05/15/2025 Comments No Sex and Gender Information Value Date Recorded Sex Assigned at Female 07/20/2022 10:15 AM EDT Legal Sex Female 10:15 AM EDT Gender Identity Female 07/20/2022 10:15 AM EDT Sexual Orientation Straight 07/20/2022 10 :15 AM EDT documented as of this encounter Last Filed Vital Signs Vital Sign Reading Time Taken Comments Blood Pressure 128/74 05/10/2025 9:24 AM EDT Pulse 66 05/10/2025 9:24 AM EDT Temperature - - Respiratory Rate - - Oxygen Saturation - - Inhaled Oxygen Concentration - - Weight - - Height - - Body Mass Index - - documented in this encounter Progress Notes * Ravi Neri - 05/10/2025 9:00 AM EDT Dental procedures in this visit D5611 - REPAIR RESIN PARTIAL DENTURE BASE, TERRENCE (Completed) Service provider: Ravi Neri Billjena provider: Alexander Ribera DDS [id number] - CASE PRESENTATION, DETAILED AND EXTENSIVE TREATMENT PLANNING (Completed) Service provider: Ravi Neri Billjena provider: Alexander Ribera DDS Patient ID: Omaira Holly is a 60 y.o. female. Time Out: Date: 05/10/2025 Location: [facility] Tooth: Mandible Procedure: Dentures Verified the above with patient, educational assistant teacher, and provider. Confirmed via patient's chart, intraorally and by radiographs. Supervisor [employer]: not applicable Lower acrylic partial denture insertion done by Dr. Ravi Neri Medical history: Reviewed in EHR Vitals: Blood pressure 128/74, pulse 66. Allergies: Reviewed in EHR Medications: Reviewed in EHR - Lower acrylic partial denture insertion done. - Bite checked with articulating paper - Necessary adjustments made. - Denture maintenance kit and instructions given to patient. - Patient recalled after 48 hours for post denture insertion follow up. - Patient given instructions for maintenance of denture. - Patient demonstrated how to insert the dentures and take them out. Patient satisfied, left in stable condition NV: follow up after 48 hours. Provider: Dr. Ravi Neri Back Shoe Worker: Nava Supervising Dentist: Dr. Ribera * Alexander Ribera DDS - 05/10/2025 9:00 AM EDT Reviewed and signed. documented in this encounter Plan of Treatment Upcoming Encounters Date Type Department Care Team (Late st Contact Info) Description 05/23/2025 10:15 AM EDT Office Visit [facility] [address] [place] [address] Heena Abbasi MD [address] [place] [address] 05/28/2025 10:00 AM EDT Office Visit [facility] [address] [place] [address] Karen Shea documented as of this encounter Procedures Procedure Name Priority Date/Time Associated Diagnosis Comments REPAIR RESIN PARTIAL DENTURE BASE, TERRENCE Routine 05/10/2025 9:00 AM EDT CASE PRESENTATION, DETAILED AND EXTENSIVE TREATMENT PLANNING Routine 05/10/2025 9:00 AM EDT documented in this encounter Visit Diagnoses Not on filedocumented in this encounter Additional Health Concerns Assessment Noted Time PHQ-9 Depression Total Score: 5 12/31/19 10:57 AM EDT documented as of this encounter Care Teams Stitch Burnisher Relationship Specialty Start Date End Date Heena Abbasi MD [address] [place] [id number] PCP - General Family Medicine 09/05/12 Eli Higuera Almond Paste MolderWearing Apparel Shaker 03/17/24 Eli Higuera Almond Paste MolderWearing Apparel Shaker 10/05/24 Eli Higuera Almond Paste MolderWearing Apparel Shaker 02/22/25 documented as of this encounter
--- NOTE | 2025-05-16 10:17 | MHC.OFFVISCO ---
Intake Intake Visit Reasons: Anticoagulation Allergies No Known Allergies Allergy (Mild, Verified 05/16/25 10:06) N/A Nursing Note PT.STATES THAT SHE HAS HAD MINIMAL GREENS AND MORE REDS THAN USUAL. PT.CONTINUES TO HAVE BACK PAIN WITH SOME RELIEF WITH TYLENOL. HOLD WARFARIN TODAY THEN RESUAME USUAL MDOSE AND FOLLOW-UP IN 4 WEEKS GOOD UNDERSTANDING OF DOSING INSTR.VERB. Coding Level of Care Code Est Patient Level 1 Diagnoses Current use of anticoagulant therapy Z79.01 Results AMB INR Fingerstick AMB INR Fingerstick 3.5 Last Edit by Itzel Dick RN on 05/16/25 10:13 Assessment & Plan Assessment & Plan (1) Current use of anticoagulant therapy: Code(s): Z79.01 - intermediate manager (current) use of anticoagulants Category: Medical
--- OUTSIDE RECORDS SUMMARY | 2025-05-16 10:44 | XMS_ITS | Encounter Summary ---
Author Organization [employer] Address [address] [facility] 7t [place] [address] Care Team Providers Care Clamshell Engineer Name Role Phone Heena Abbasi MD Primary Care Provider [phone] Encounter Details Date Type Department Care Team (Late Contact Info) Description 09/10/2022 Orders Only [facility] [address] [place], [place] [phone] Tierra Ashby LPN Social History Tobacco Use [...] Description 05/23/2025 10:15 AM EDT Office Visit [facility] [address] [place] [address] Heena Abbasi MD [address] [place] [address] 05/28/2025 10:00 AM EDT Office Visit [facility] ADULT DENTAL [address] [place] [address] Karen Shea documented as of this encounter Visit Diagnoses Not on filedocumented in this encounter Care Teams Clamshell Engineer Relationship Specialty Start Date End Date Heena Abbasi MD [address] [place] [address] PCP - General Family Medicine 09/05/12 Eli Higuera Railroad CarmanElectric Mule Operator 03/17/24 Eli Higuera Railroad CarmanElectric Mule Operator 10/05/24 Eli Higuera Railroad CarmanElectric Mule Operator 02/22/25 documented as of this encounter
--- OUTSIDE RECORDS SUMMARY | 2025-05-16 10:44 | XMS_ITS | Encounter Summary ---
Author Organization [employer] Address [address] [facility] 7[address] [place] [address] Care Team Providers Care Assistant Refinery Operator Name Role Phone Heena Abbasi MD Primary Care Provider [phone] Reason for Visit * Reason Comments Pre-visit Planning SDOH screening negat azeb and Tobacco screening negative Encounter Details Date Type Department Care Team ([facility] st Contact Info) Description 05/15/2025 Patient Outreach [facility] [address] [place] [address] Heena Abbasi MD [address] [place] [address] Pre-visit Planning (SDOH screening negative and Tobacco screening negative) Social History Tobacco Use Types Packs/Day Years [...] as of this encounter Progress Notes * Connie Wheeler - 05/15/2025 1:49 PM EDT CC Connie nolan successful outbound call to patient for pre-visit planning. Patient name and confirmed. Patient confirms appt date and time, and has transportation arrangements. Biggest concern for appointment at this time is no concerns. Patient advised to bring to appointment a photo id and insurance card. Appropriate screenings completed in anticipation of appointment. documented in this encounter Plan of Treatment Upcoming Encounters Date Type Department Care Team (Late st Contact Info) Description 05/23/2025 10:15 AM EDT Office Visit [facility] [address] [place] [address] Heena Abbasi MD [address] [place] [address] 05/28/2025 10:00 AM EDT Office Visit [facility] ADULT DENT[facility] [address] [place] [address] Karen Shea documented as of this encounter Visit Diagnoses Not on filedocumented in this encounter Additional Health Concerns Assessment Noted Time PHQ-9 Depression Total Score: 5 12/31/19 24 10:57 AM EDT documented as of this encounter Care Teams Assistant Refinery Operator Relationship Specialty Start Date End Date Heena Abbasi MD [address] [place] [phone] PCP - General Family Medicine 09/05/12 Eli Higuera Reefer EngineerInstructor Adjunct Surgical Technician 03/17/24 Eli Higuera Reefer EngineerInstructor Adjunct Surgical Technician 10/05/24 Eli Higuera Reefer EngineerInstructor Adjunct Surgical Technician 02/22/25 documented as of this encounter
--- OUTSIDE RECORDS SUMMARY | 2025-05-16 10:44 | XMS_ITS | Encounter Summary ---
Author Organization [employer] Address [address] [facility] 7[address] [place] [address] Care Team Providers Care Lead Informatica Developer Name Role Phone Heena Abbasi MD Primary Care Provider [phone] Reason for Visit * Reason Onset Date Comments Referral 07/29/2023 Encounter Details Date Type Department Care Team ([facility] st Contact Info) Description 07/29/2023 Telephone [facility] [address] [place] [address] Heena Abbasi MD [address] [place], [place] [phone] Referral Social History Tobacco Use Types Packs/Day [...] [facility] [address] [place] [address] Heena Abbasi MD [address] [place] [address] 05/28/2025 10:00 AM EDT Office Visit [facility] [address] [place] [address] Karen Shea documented as of this encounter Visit Diagnoses Not on filedocumented in this encounter Care Teams Lead Informatica Developer Relationship Specialty Start Date End Date Heena Abbasi MD [address] [place] [address] PCP - General Family Medicine 09/05/12 Eli Higuera Network Relay TesterLine Cleaner 03/17/24 Eli Higuera Network Relay TesterLine Cleaner 10/05/24 Eli Higuera Network Relay TesterLine Cleaner 02/22/25 documented as of this encounter
--- OUTSIDE RECORDS SUMMARY | 2025-05-16 10:44 | XMS_ITS | Encounter Summary ---
Author Organization [employer] [facility] Address [address] [facility] 7t [place] [address] Care Team Providers Care Fisherman Helper Name Role Phone Heena Abbasi MD Primary Care Provider [phone] Encounter Details Date Type Department Care Team (Latest Contact Info) Description 07/29/2022 Abstract [facility] CONVERSIONS Dental, Provider, DDS Social History [...] 10:15 AM EDT Office Visit [facility] [address] [place] [address] Heena Abbasi MD [address] [place] [address] 05/28/2025 10:00 AM EDT Office Visit [facility] [address] [place] [address] Karen Shea documented as of this encounter Visit Diagnoses Not on filedocumented in this encounter Care Teams Fisherman Helper Relationship Specialty Start Date End Date Heena Abbasi MD [address] [place] [address] PCP - General Family Medicine 09/05/12 Eli Higuera Delivery AnalystBridge Teacher 6/28/24 Eli Higuera Delivery AnalystBridge Teacher 10/05/24 Eli Higuera Delivery AnalystBridge Teacher 02/22/25 documented as of this encounter
--- OUTSIDE RECORDS SUMMARY | 2025-05-16 10:44 | XMS_ITS | Encounter Summary ---
Author Organization [employer] Address [address] [facility] 7t [place] [address] Care Team Providers Care Rack Cleaner Name Role Phone Heena Abbasi MD Primary Care Provider [phone] Encounter Details Date Type Department Care Team (Latest Contact Info) Description 05/08/2025 Results [facility]-Up [facility] [address] [place], [place] [phone] Heena Abbasi MD [address] [place], [place] [phone] BI Mammogram Screening Tomosynthesis Bilateral Social History Tobacco Use Types Packs/Day Years [...] as of this encounter Miscellaneous Notes * Result Encounter Note - Heena Abbasi MD - 05/08/2025 3:43 PM EDT Needs tracking documented in this encounter Plan of Treatment Upcoming Encounters Date Type Department Care Team (Late st Contact Info) Description 05/23/2025 10:15 AM EDT Office Visit [facility] [address] [place] [address] Heena Abbasi MD [address] [place] [address] 05/28/2025 10:00 AM EDT Office Visit [facility] ADULT DENT[facility] [address] [place] [address] Karen Shea documented as of this encounter Visit Diagnoses Not on filedocumented in this encounter Additional Health Concerns Assessment Noted Time PHQ-9 Depression Total Score: 5 12/31/19 24 10:57 AM EDT documented as of this encounter Care Teams Rack Cleaner Relationship Specialty Start Date End Date Heena Abbasi MD [address] [place] [address] PCP - General Family Medicine 09/05/12 Eli Higuera Phlebotomy SupervisorCosmetic Assembler 03/17/24 Eli Higuera Phlebotomy SupervisorCosmetic Assembler 10/05/24 Eli Higuera Phlebotomy SupervisorCosmetic Assembler 02/22/25 documented as of this encounter
--- OUTSIDE RECORDS SUMMARY | 2025-05-16 10:44 | XMS_ITS | Encounter Summary ---
Author Organization [employer] Address [address] [facility] 7t [place] [address] Care Team Providers Care Tab Machine Operator Name Role Phone Heena Abbasi MD Primary Care Provider [phone] Reason for Visit * Reason Onset Date Comments Dr. Golden medical clearance ?? 11/23/2024 Encounter Details Date Type Department Care Team (Late st Contact Info) Description 11/23/2024 Telephone [facility] ADULT DENT[facility] [address] [place] [address] Reynoso medical clearance ?? Social History Tobacco Use [...] Description 05/23/2025 10:15 AM EDT Office Visit [facility] [address] [place] [address] Heena Abbasi MD [address] [place] [address] 05/28/2025 10:00 AM EDT Office Visit [facility] AD[facility] [address] [place] [address] Karen Shea documented as of this encounter Visit Diagnoses Not on filedocumented in this encounter Additional Health Concerns Assessment Noted Time PHQ-9 Depression Total Score: 5 12/31/19 24 10:57 AM EDT documented as of this encounter Care Teams Tab Machine Operator Relationship Specialty Start Date End Date Heena Abbasi MD [address] [place] [address] PCP - General Family Medicine 09/05/12 Eli Higuera Oil Recovery OperatorPotato Chip Maker 03/17/24 Eli Higuera Oil Recovery OperatorPotato Chip Maker 10/05/24 Eli Higuera Oil Recovery OperatorPotato Chip Maker 02/22/25 documented as of this encounter
--- OUTSIDE RECORDS SUMMARY | 2025-05-16 10:44 | XMS_ITS | Encounter Summary ---
Author Organization [employer] Address [address] [facility] 7t [place] [address] Care Team Providers Care Commutator V Ring Assembler Name Role Phone Heena Abbasi MD Primary Care Provider [phone] Encounter Details Date Type Department Care Team (Late st Contact Info) Description 02/29/2024 Telephone [facility] [address] [place] [address] Perri Noble, SOREN Social History Tobacco Use [...] 10:15 AM EDT Office Visit [facility] [address] [place] [address] Heena Abbasi MD [address] [place] [address] 05/28/2025 10:00 AM EDT Office Visit [facility] ADULT [facility] [address] [place] [address] Karen Shea documented as of this encounter Visit Diagnoses Not on filedocumented in this encounter Additional Health Concerns Assessment Noted Time PHQ-9 Depression Total Score: 5 12/31/19 24 10:57 AM EDT documented as of this encounter Care Teams Commutator V Ring Assembler Relationship Specialty Start Date End Date Heena Abbasi MD [address] [place] [address] PCP - General Family Medicine 09/05/12 Eli Higuera Oil Spraying Machine OperatorNail Cutter 03/17/24 Eli Higuera Oil Spraying Machine OperatorNail Cutter 10/05/24 Eli Higuera Oil Spraying Machine OperatorNail Cutter 02/22/25 documented as of this encounter
--- OUTSIDE RECORDS SUMMARY | 2025-05-16 10:44 | XMS_ITS | Clinical Summary ---
Author Organization [employer] Address [address] [facility] 7t [place] [address] Care Team Providers Care Strickler Attendant Name Role Phone Heena Abbasi MD Primary Care Provider [phone] Allergies No known active allergies Medications Calcium Carb-Cholecalcife rol 500-10 MG-MCG tablet Take 1 tablet by mouth 1 (one) time each day. 1 Active cyclobenzaprine (Flexeril) 5 MG tablet Take 1 tablet by mouth at bedtime. 2 Active ferrous sulfate 325 (65 Fe) MG tablet Take 1 tablet by mouth 1 (one) time each day. 2 Active lidocaine-priloca ine (Emla) 2.5-2.5 % [...] for sleep. 90 tablet 3 4 Active triamcinolone (Kenalog) 0.025 % ointment [...] ELIO TABLETA TODOS LOS SAGE EN LA WELLESLEYANA 30 tablet 2 4 Active traZODone (Desyrel) 50 MG tabletIndications :Insomnia, unspecified type TAKE 1 TABLET BY MOUTH AT BEDTIME 30 tablet 2 4 Active Diclofenac Sodium 1 % gelIndications:Ac roberto carlos bilateral low back pain, unspecified whether sciatica present APPLY 1 INCH TOPICALLY ONCE A DAY 100 g 4 Active cetirizine (ZyrTEC) 10 MG tablet TAKE 1 TABLET 1-2 TIMES PER DAY FOR ITCH, RASH 90 tablet 4 Active cyclobenzaprine (Flexeril) 10 MG tablet Take 1 tablet (10 mg) by mouth 3 times daily for 10 days. 30 tablet 4 Active Lidocaine 5 % creamIndications: Acute right-sided low back pain with right-sided sciatica Apply topically bid 30 g 3 5 Active dextran 70-hypromellose (artificial tears) 0.1-0.3 % ophthalmic solutionIndicatio ns:Dry eyes, bilateral Administer 1 drop into both eyes if needed in the morning, at noon, and at bedtime for dry eyes. 30 mL 11 5 10/31/19 26 Active pantoprazole (ProtoNix) 20 MG EC tabletIndications :GERD without esophagitis TAKE 1 TABLET BY MOUTH BEFORE BREAKFAST 90 tablet 1 5 Active gemfibrozil (Lopid) 600 MG tabletIndications :Hypercholesterol emia TOME ELIO TABLETA POR VIA ORAL 2 TIMES DAILY 180 tablet 11 5 Active warfarin (Coumadin) 4 MG tabletIndications :Chronic atrial fibrillation (CMS/HCC) TAKE 1 TABLET BY MOUTH DAILY OR DIRECTED BY THE COUMADIN CLINIC 30 tablet 1 5 Active Active Problems Problem [...] Gentle stretching Short course of flexeril, I chief counsel about side effect somnolence Acetaminophen 1300mg Q8-12hrs [...] Encounters Date Type Department Care Team Description 05/15/[address] [facility] [address] [place] [address] Heena Abbasi MD Pre-visit Planning (SDOH screening negative and Tobacco screening negative) 05/10/2025 9:00 AM EDT Office Visit [facility] [address] [place] [address] Ravi Neri 05/08/2025 Results Follow-Up [facility] [address] [facility] [place] [address] Heena Abbasi MD BI Mammogram Screening Tomosynthesis Bilateral 05/03/2025 10:00 AM EDT Office Visit [facility] [address] [place] [address] Ravi Neri 04/18/2025 Orders Only GENERIC EXTERNAL DATA DEPARTMENT Provider, Generic External Data 04/03/2025 Refill [facility] [address] [facility] [place] [address] Heena Abbasi MD Chronic atrial fibrillation ([facility]) 03/21/2025 Orders Only GENERIC EXTERNAL DATA DEPARTMENT Provider, Generic External Data 02/22/[address] [facility] [address] [place] [address] Heena Abbasi MD Care Coordination (ICP Care Plan ) 02/21/2025 Orders Only GENERIC EXTERNAL DATA DEPARTMENT Provider, Generic External Data from Last 3 Months Immunizations Immunization Administration Dates Next Due Hep B, adult [...] the past 12 months, has t he [employer], gas, oil or water company threatened to [...] Pulse 66 05/10/2025 9:24 AM EDT Temperature 36.8 C (98.2 F) 10/13/2024 9:48 AM EST Respiratory Rate 18 10/13/2024 9:48 AM EST [...] Description 05/23/2025 10:15 AM EDT Office Visit [facility] [address] [place] [address] Heena Abbasi MD [address] [place] [address] 05/28/2025 10:00 AM EDT Office Visit [facility] [address] [place] [address] Karen Shea Health Maintenance Due Date Last Done Comments CT Colonography 1965 Colonoscopy 1965 FIT 1965 FOBT 1965 HIV Screening 1965 Sigmoidoscopy 1965 Disability Screening 1964 Alcohol/Substance Use Screening 1976 Hepatitis C Screening 02/11/1982 Pap Smear 02/11/1985 Cervical Cancer Screening 02/11/1994 HPV/Cotest 02/11/1994 Pneumococcal Vaccine: 50+ Years (1 of 1 - PCV) 02/11/2014 Zoster Vaccines (2 of 2) 07/30/2022 06/04/2022 RSV Patients and Patients Aged 60 years or older (1 - Risk 60-74 years 1-dose series) 2024 COVID-19 Vaccine ( season) 2024 11/13/2022, 01/02/2022, 02/20/2021, Additional history exists Depression Screening 12/30/2024 12/31/2023, 12/31/19 24 Influenza Vaccine (#1) 2025 , 06/04/2022, 09/15/2021, Additional history exists Dental Oral Exam 05/28/2025 11/24/2024, , 07/29/2022 Dental Prophylaxis 05/28/2025 11/24/2024, 0 12/14/2023, 07/29/2022 Dental X-Ray: Bitewings 11/25/2025 11/25/19 25, 12/14/2023, 07/29/2022 Mammogram 05/03/2026 05/03/2025, 080 09/2023, 04/06/2023, Additional history exists Tobacco Screening 05/10/2026 05/10/2025 SDOH Screening 05/15/2026 05/15/2025 Dental X-Ray: Full Mouth 12/14/2026 12/14/2023, 0312/2018 [...] patient's age to complete this topic Meningococcal B Vaccine Aged Out No l onger eligible based on patient's age to complete [...] Procedure Name Priority Date/Time Associated Diagnosis Comments CASE PRESENTATION, DETAILED AND EXTENSIVE TREATMENT PLANNING Routine 05/10/2025 9:00 AM EDT REPAIR RESIN PARTIAL DENTURE BASE, TERRENCE Routine 05/10/2025 9:00 AM EDT CASE PRESENTATION, DETAILED AND EXTENSIVE TREATMENT PLANNING Routine 05/03/2025 10:00 AM EDT DENTURE IMPRESSION Routine 05/03/2025 10 :00 AM EDT LIMITED ORAL EVALUATION - PROBLEM FOCUSED Routine 05/03/2025 10:00 AM EDT BI MAMMOGRAM SCREENING TOMOSYNTHESIS BILATERAL Routine 05/03/2025 9:25 AM EDT PROTHROMBIN TIME WHOLE BLD POC Routine 04/18/2025 10:16 AM EDT ~PT, ~INR - ANTI COAG CLINIC Routine 04/18/2025 10:16 AM EDT PROTHROMBIN TIME WHOLE BLD POC Routine 03/21/2025 10:24 AM EDT ~PT, ~INR - ANTI COAG CLINIC Routine 03/21/2025 10:24 AM EDT PROTHROMBIN TIME WHOLE BLD POC Routine 02/21/2025 10:33 AM EDT ~PT, ~INR - ANTI COAG CLINIC Routine 02/21/2025 10:33 AM EDT PROPHYLAXIS - ADULT Routine 11/24/2024 1 1:00 AM EST BITEWINGS - 2 RADIOGRAPHIC IMAGES Routine 11/24/2024 11:00 AM EST PERIODIC ORAL EVALUATION - ESTABLISHED PATIENT Routine 11/24/2024 11:00 AM EST LIPID PANEL, STANDARD Routine 02/15/2024 10:47 AM EDT Benign hypertension LAB COLOGUARD COLON CANCER SCREEN Routine 01/11/2024 9:45 AM EDT Encounter for screening for malignant neoplasm of colon INTRAORAL - COMPLETE SERIES OF RADIOGRAPHIC IMAGES Routine 12/14/2023 10:00 AM EDT from Last 3 Months or Most Recently Relevant to Health Maintenance Results * BI Mammogram Screening Tomosynthesis Bilateral (05/03/2025 9:25 AM EDT) Anatomical Region Laterality Modality Breast Bilateral Mammography 05/03/2025 9:25 AM EDT Narrative 05/08/2025 11:51 AM EDT [facility] [address] [place] [address] Mammography Report Signed Patient: Omaira Holly MR#: [id number] : 1965 Acct:[id number] Age/Sex: 60 / F ADM Date: 05/03/25 Loc: HO.MAMMO Attending Dr: Heena Abbasi MD Ordering Physician: Heena Abbasi MD Results: 1Negati ve Date of Service: 05/03/25 Follow Up: 1 Year From [facility] ina Mammogram Procedure(s): MM tomosynthesis screening BI Accession Number(s): [id number] cc: Heena Abbasi MD EXAMINATION: MM SCREENING DIGITAL BREAST TOMOSYNTHESIS, BILATERAL CLINICAL INFORMATION: Screening. Asymptomatic. COMPARISON: Mammography: Comparison is made with available priors TECHNIQUE: Digital breast mammography with tomosynthesis is performed in both the craniocaudal and mediolateral oblique views along with computer-aided detection (CAD). FINDINGS: There are scattered areas of fibroglandular [...] for their next mammogram. Electronically signed by: Nat Potter DO 05/08/2025 11:48 AM EDT Dictated By: Nat Potter DO Signed By: <Electronically signed by Nat Potter DO in OV> 05/08/25 1148 DD/ 0925 TD/TT: 08/14/25 0945 Dealer Account Manager: Procedure Note Donotuseinterpreter, Image - 05/08/2025 [facility] [address] [place], [place] [address] Mammography Report Signed Patient: Omaira HollyMR#: [id number] : 1965Acct:[id number] Age/Sex: 60 / FADM Date: 05/03/25 Loc: HO.MAMMO Attending Dr: Heena Abbasi MD Ordering Physician: Heena Abbasi MDResults: 1Negati ve Date of Service: 05/03/25Follow Up: 1 Year From Orig inal Mammogram Procedure(s): MM tomosynthesis screening BI Accession Number(s): [id number] cc: Heena Abbasi MD EXAMINATION: MM SCREENING DIGITAL BREAST TOMOSYNTHESIS, BILATERAL CLINICAL INFORMATION: Screening. Asymptomatic. COMPARISON: Mammography: Comparison is made with available priors TECHNIQUE: Digital breast mammography with tomosynthesis is performed in both the craniocaudal and mediolateral oblique views along with computer-aided detection (CAD). FINDINGS: There are scattered areas of fibroglandular [...] for their next mammogram. Electronically signed by: Nat Potter DO 05/08/2025 11:48 AM EDT Dictated By: Nat Potter DO Signed By: <Electronically signed by Nat Potter DO in OV> 05/08/25 1148 DD/ 4 TD/TT: 05/03/25944 Dealer Account Manager: Heena Abbasi MD IMG BI PROCEDURES Final Result * (ABNORMAL) PROTHROMBIN TIME WHOLE BLD POC (04/18/2025 10:16 AM EDT) Only the most recent of3 resultswithin the time period is included. Protime 33.5(H) 11.1 - 13.5 sec [facility] 04/18/2025 10:1 6 AM EDT 04/18/2025 4:05 PM EDT Generic External Data Provider LAB BLOOD ORDERAB LES Final Result Performing Organization Address City/[facility]/ZIP Co de Phone Number [facility] [address] [place] [address] [phone] * (ABNORMAL) ~PT, ~INR - ANTI COAG CLINIC (04/18/2025 10:16 AM EDT) Only the most recent of3 resultswithin the time period is included. Prothrombin Time INR 2.8(H) 0.9 - 1.1 [facility] Comment:METER #: [id number] TERNATIONAL NORMALIZED RATIO (INR) REFERENCE RANGES Reference RangeFor patients not on anticoagulant therapy: 0.9 - 1.1INR ranges for oral anticoagulanttherapy:For prevention and treatment of venous thrombosis and pulmonary embolism: 2.0 - 3.0For acute myocardial infarction with aspirin therapy: 2.0 - 3.0For acute myocardial infarction without aspirin therapy: 3.0 - 4.0For patients with mechanical prosthetic heart valves: 2.5 - 3.5 04/18/2025 10:1 6 AM EDT 04/18/2025 4:05 PM EDT Generic External Data Provider LAB BLOOD ORDERAB LES Final Result Performing Organization Address City/[facility]/ZIP Co de Phone Number [facility] [address] [place] [address] [phone] * (ABNORMAL) Lipid Panel, Standard (02/15/2024 10:47 AM EDT) Triglycerides 55 <150 mg/dL [facility] Comment:Desirable Triglyceri de: less than 150 mg/dLBorderline High Triglyceride 150-199 mg/dLHigh Triglyceride: 200-499 mg/dLVery High Triglyceride: greater than or equal to 5OO mg/dL Cholesterol 175 <200 mg/dL [facility] Comment:Desirable Cholestero l: less than 200 mg/dLBorderline High Cholesterol: 200-239 mg/dLHigh Cholesterol: greater than 239 mg/dL LDL Cholesterol Calculated 101(H) <100 mg/dL [facility] Comment:Desirable LDL: less than 100 mg/dLNear Optimal/Above Optimal LDL: 110- 129 mg/dLBorderline High LDL: 130-159 mg/dLHigh LDL: 160-189 mg/dLVery High LDL: greater than or equal to 190 mg/dL HDL Cholesterol 63 >40 mg/dL [facility] Comment:Desirable HDL: great er than 40 mg/dL Note: This HDL assay may give artificially low results in patients with liver disease. Blood Venous blood specimen / Unknown 02/15/2024 10:47 AM EDT 02/15/2024 10:47 AM EDT us Heena Abbasi MD LAB BLOOD ORDERABLES Final Resul t [facility] [address] [place] [phone] * Cologuard?? colon cancer screening (01/11/2024 9:45 AM EDT) Cologuard Result Negative Negative 01/20/20 24 12:00 PM EDT [employer] (CLIA #:[id number]) Comment: NEGATIVE TEST RESULT. A negative Cologuard result indicates a low likelihood that a colorectal cancer (CRC) or advanced adenoma (adenomatous polyps with more advanced pre-malignant features) is present. The chance that a person with a negative Cologuard test has a colorectal cancer is less than 1 in 1500 (negative predictive value >99.9%) or has an advanced adenoma is less than 5.3% (negative predictive value 94.7%). These data are based on a prospective cross-sectional study of 10,000 individuals at average risk for colorectal cancer who were screened with both Cologuard and colonoscopy. (Mando Sidhu al, N Engl J Med 2014;370(14):3656-7277) The normal value (reference range) for this assay is negative. COLOGUARD RE-SCREENING RECOMMENDATION: Periodic colorectal cancer screening is an important part of preventive healthcare for asymptomatic individuals at average risk for colorectal cancer. Following a negative Cologuard result, the [place] Cancer Society and U.S. Multi-Society Task Force screening guidelines recommend a Cologuard re-screening interval of 3 years. References: [place] Cancer Society Guideline for Colorectal Cancer Screening: https://www.cancer.org/cancer/ggbpe-gybule-cweitm/bvzbalwob-ffhngsptw-ffviytc/ac s-rec ommendations.html.; Dane DK, Feroz GALE, Lauro McdanielK, Colorectal Cancer Screening: Recommendations for Physicians and Patients from the U.S. Multi-Society Task Force on Colorectal Cancer Screening , Am J Gastroenterology 2017; 112:1530-3842. TEST DESCRIPTION: Composite algorithmic analysis of stool DNA-biomarkers with hemoglobin immunoassay. Quantitative values of individual biomarkers are not [...] screened with both Cologuard and colonoscopy. (Mando Plummer, N Engl J Med 2014;370(14):1965-5881.) Cologuard may produce a false negative or false positive result (no colorectal cancer or precancerous polyp present at colonoscopy follow up). A negative Cologuard test result does not guarantee the absence of CRC or advanced adenoma (pre-cancer). The current Cologuard screening interval is every 3 years. ([place] Cancer Society and U.S. Multi-Society Task Force). Cologuard performance data in a 10,000 patient pivotal study using colonoscopy as the reference method can be accessed at the following location: www.[employer]ided[employer]/results. Additional description of the Cologuard test process, warnings and precautions can be found at www.cologuard.com. Stool specimen (specimen) 01/11/2024 9:45 AM EDT 01/13/2024 10:47 AM EDT Heena Abbasi MD LAB MOLECULAR DIAGNOSTICS ORDERA BLES Final Result [employer] (CLIA #:[id number]) [place] [address], from Last 3 Months or Most Recently Relevant to Health Maintenance Insurance C3 [facility]AL-[facility] MEDICAID STAND [facility] ADULT Care Teams Strickler Attendant Relationship Specialty Start Date End Date Heena Abbasi MD [address] [place] [phone] PCP - General Family Medicine 09/05/12 Eli Higuera Pressure Test OperatorSorting Machine Operator 03/17/24 Eli Higuera Pressure Test OperatorSorting Machine Operator 10/05/24 Eli Higuera Pressure Test OperatorSorting Machine Operator 02/22/25
--- OUTSIDE RECORDS SUMMARY | 2025-05-16 10:44 | XMS_ITS | Encounter Summary ---
Author Organization [employer] Address [address] [facility] 7t [place] [address] Care Team Providers Care Teaching Associate Name Role Phone Heena Abbasi MD Primary Care Provider [phone] Encounter Details Date Type Department Care Team (Late st Contact Info) Description 12/31/2023 Orders Only [facility] [address] [place], [place] [phone] Heena Abbasi MD [address] [place], [place] [phone] Social History Tobacco Use Types Packs/Day Years [...] AM EDT documented as of this encounter Functional Status * Over the past 2 weeks, how often have you been bothered by any of the following problems? Question Answer Date of Assessment Author Patient Health Questionnaire -2 Score 2 12/31/2023 10:57 AM FERNANDOT Vee Daigle [place] * If you checked off any problems on this questionnaire so far, Question Answer Date of Assessment Author How difficult have these problems made it for you to do your work, take care of things at home, or get along with other people? Somewhat difficult 12/31/2023 10:57 AM Vee Olmstead [place] * Over the past 2 weeks, how often have you been bothered by any of the following problems? Question Answer Date of Assessment Author Little interest or pleasure in doing things Several days 12/31/2023 10:57 AM Vee Olmstead [place] Feeling down, depressed, or hopeless Several days 12/31/2023 10:57 AM Vee Olmstead [place] Trouble falling or staying asleep, or sleeping too much Several days 12/31/2023 10:57 AM Vee Olmstead [place] Feeling tired or having little energy Several days 12/31/2023 10:57 AM Vee Olmstead [place] Poor appetite or overeating Not at all 12/31/2023 10 :57 AM Vee Olmstead [place] Feeling bad about yourself - or that you are a failure or have let yourself or your family down Not at all 12/31/2023 10:57 AM Vee Olmstead [place] Trouble concentrating on things, such as reading the newspaper or watching television Several days 12/31/2023 10:57 AM Vee Olmstead MA Moving or speaking so slowly that other people could have noticed? Or the opposite - being so fidgety or restless that you have been moving around a lot more than usual. Not at all 12/31/2023 10:57 AM EDT Vee Dailge MA Thoughts that you would be better off or hurting yourself in some way Not at all 12/31/2023 10:57 AM FERNANDOT Lia Daigle MA Patient Health Questionnaire-9 Score 5 12/31/2023 10:57 AM EDT Thor Daigle [place] documented as of this encounter Plan of Treatment Upcoming Encounters Date Type Department Care Team (Late st Contact Info) Description 05/23/2025 10:15 AM EDT Office Visit [facility]ED[facility] [address] [place] [address] Heena Abbasi MD [address] [place] [address] 05/28/2025 10:00 AM EDT Office Visit [facility] ADULT DENTAL [address] [place] [address] Karen Shea documented as of this encounter Visit Diagnoses Not on filedocumented in this encounter Additional Health Concerns Assessment Noted Time PHQ-9 Depression Total Score: 5 12/31/19 24 10:57 AM EDT documented as of this encounter Care Teams Teaching Associate Relationship Specialty Start Date End Date Heena Abbasi MD [address] [place] [phone] PCP - General Family Medicine 09/05/12 Eli Higuera Cue WorkerChip Bin Conveyor Tender 03/17/24 Eli Higuera Cue WorkerChip Bin Conveyor Tender 10/05/24 Eli Higuera Cue WorkerChip Bin Conveyor Tender 02/22/25 documented as of this encounter
--- OUTSIDE RECORDS SUMMARY | 2025-05-16 10:44 | XMS_ITS | Encounter Summary ---
Author Organization [employer] [facility] Address [address] [facility] 7t [place] [address] Care Team Providers Care Vp Clinical Research Name Role Phone Heena Abbasi MD Primary Care Provider [phone] Encounter Details Date Type Department Care Team (Latest Contact Info) Description 11/21/2018 Abstract [facility] CON[facility] Dental, Provider, DDS Social History [...] Description 05/23/2025 10:15 AM EDT Office Visit [facility] [address] [place] [address] Heena Abbasi MD [address] [place] [address] 05/28/2025 10:00 AM EDT Office Visit [facility] ADULT DENT[facility] [address] [place] [address] aKren Shea documented as of this encounter Visit Diagnoses Not on filedocumented in this encounter Care Teams Vp Clinical Research Relationship Specialty Start Date End Date Heena Abbasi MD [address] [place] [phone] PCP - General Family Medicine 09/05/12 Eli Higuera Director Of Regulatory AffairsElectrolog Operator 03/17/24 Eli Higuera Director Of Regulatory AffairsElectrolog Operator 10/05/24 Eli Higuera Director Of Regulatory AffairsElectrolog Operator 02/22/25 documented as of this encounter
--- OUTSIDE RECORDS SUMMARY | 2025-05-16 10:45 | XMS_ITS | Encounter Summary ---
Author Organization [employer] [facility] Address [address] [facility] 7t [place] [address] Care Team Providers Care Dining Room Maid Name Role Phone Heena Abbasi MD Primary Care Provider [phone] Encounter Details Date Type Department Care Team (Late Contact Info) Description 01/01/2023 Orders Only [facility] [address] [place] [address] Heena Abbasi MD [address] [place] [address] Muscle spasm Social History Tobacco Use Types [...] Description 05/23/2025 10:15 AM EDT Office Visit [facility] [address] [place] [address] Heena Abbasi MD [address] [place] [address] 05/28/2025 10:00 AM EDT Office Visit [facility] ADULT [facility] [address] [place] [address] Karen Shea documented as of this encounter Visit Diagnoses Diagnosis Muscle spasm Spasm of muscle documented in this encounter Care Teams Dining Room Maid Relationship Specialty Start Date End Date Heena Abbasi MD [address] [place] [phone] PCP - General Family Medicine 09/05/12 Eli Higuera Metals AnalystEqual Opportunity Assistant 03/17/24 Eli Higuera Metals AnalystEqual Opportunity Assistant 10/05/24 Eli Higuera Metals AnalystEqual Opportunity Assistant 02/22/25 documented as of this encounter
--- OUTSIDE RECORDS SUMMARY | 2025-05-16 10:45 | XMS_ITS | Encounter Summary ---
Author Organization [employer] [facility] Address [address] [facility] 7t [place] [address] Care Team Providers Care Complaint Operator Name Role Phone Heena Abbasi MD Primary Care Provider [phone] Encounter Details Date Type Department Care Team (Late Contact Info) Description 04/05/2023 Orders Only [facility] [address] [place] [address] Heena Abbasi MD [address] [place] [address] Social History Tobacco Use Types Packs/Day Years [...] Department Care Team (Late Contact Info) Description 05/23/2025 10:15 AM EDT Office Visit [facility] [address] [place] [address] Heena Abbasi MD [address] [place] [address] 05/28/2025 10:00 AM EDT Office Visit [facility] ADULT DENTAL [address] [place] [address] Karen Shea documented as of this encounter Visit Diagnoses Not on filedocumented in this encounter Care Teams Complaint Operator Relationship Specialty Start Date End Date Heena Abbasi MD [address] [place] [phone] PCP - General Family Medicine 09/05/12 Eli Higuera Storeroom ClerkInterceptor Operator 03/17/24 Eli Higuera Storeroom ClerkInterceptor Operator 10/05/24 Eli Higuera Storeroom ClerkInterceptor Operator 02/22/25 documented as of this encounter
--- OUTSIDE RECORDS SUMMARY | 2025-05-16 10:45 | XMS_ITS | Encounter Summary ---
Author Organization [employer] [facility] Address [address] [facility] 7t [place] [address] Care Team Providers Care Diamond Merchant Name Role Phone Heena Abbasi MD Primary Care Provider [phone] Reason for Visit * Reason Onset Date Comments pre tx medication 02/16/2023 Encounter Details Date Type Department Care Team (Late Contact Info) Description 02/16/2023 Telephone [facility] [address] [place], [place] [phone] Socorro Auguste DDS pre tx medication Social [...] [facility] P[facility] [address] [place] [address] Heena Abbasi MD [address] [place] [address] 05/28/2025 10:00 AM EDT Office Visit [facility] [address] [place] [address] Karen Shea documented as of this encounter Visit Diagnoses Not on filedocumented in this encounter Care Teams Diamond Merchant Relationship Specialty Start Date End Date Heena Abbasi MD [address] [place] [address] PCP - General Family Medicine 09/05/12 Eli Higuera Desizing Machine Operator Head EndTile Roofer 03/17/24 Eli Higuera Desizing Machine Operator Head EndTile Roofer 10/05/24 Eli Higuera Desizing Machine Operator Head EndTile Roofer 02/22/25 documented as of this encounter
--- OUTSIDE RECORDS SUMMARY | 2025-05-16 10:45 | XMS_ITS | Encounter Summary ---
Author Organization [employer] Address [address] [facility] 7t [place] [address] Care Team Providers Care Choral Director Name Role Phone Heena Abbasi MD Primary Care Provider [phone] Reason for Visit * Reason Onset Date Comments Med Refill 03/30/2023 Encounter Details Date Type Department Care Team ([facility] st Contact Info) Description 03/30/[address] [facility] MED & PEDS [address] [place], [place] [phone] Heena Abbasi MD 505 [place] [address] Med Refill Social History Tobacco Use Types [...] - 03/31/2023 8:41 AM EDT Managed [place] [facility] [place]. Noted INR result [...] 05/23/2025 10:15 AM EDT Office Visit [facility] MED [facility]ED[facility] [address] [place] [address] Heena Abbasi MD 505 [place] [address] 05/28/2025 10:00 AM EDT Office Visit [facility] ADULT [facility] 505 [place] [address] Karen Shea documented as of this encounter Visit Diagnoses Not on filedocumented in this encounter Care Teams Choral Director Relationship Specialty Start Date End Date Heena Abbasi MD [address] [place] [address] PCP - General Family Medicine 09/05/12 Eli Higuera Offline EditorMaster Machinist 03/17/24 Eli Higuera Offline EditorMaster Machinist 10/05/24 Eli Higuera Offline EditorMaster Machinist 02/22/25 documented as of this encounter
--- OUTSIDE RECORDS SUMMARY | 2025-05-16 10:45 | XMS_ITS | Encounter Summary ---
Author Organization [employer] Address [address] [facility] 7t [place] [address] Care Team Providers Care Health And Safety Trainer Name Role Phone Heena Abbasi MD Primary Care Provider [phone] Reason for Visit * Reason Onset Date Comments Med Refill 12/30/2022 Encounter Details Date Type Department Care Team ([facility] st Contact Info) Description 12/30/2022 Telephone [facility] MEDICINE [address] [place] [address] Heena Abbasi MD [address] [place], [place] [phone] Med Refill Social History Tobacco Use Types [...] 12/30/2022 12:39 PM EDT Pt managed by [facility] coumadin clinic. Noted INR of [...] Description 05/23/2025 10:15 AM EDT Office Visit [facility] MED & PEDS [address] [place] [address] Heena Abbasi MD [address] [place] [address] 05/28/2025 10:00 AM EDT Office Visit [facility] ADULT DENTAL [address] [place] [address] Karen Shea documented as of this encounter Visit Diagnoses Not on filedocumented in this encounter Care Teams Health And Safety Trainer Relationship Specialty Start Date End Date Heena Abbasi MD [address] [place] [address] PCP - General Family Medicine 09/05/12 Eli Higuera Hand Funnel CoaterSenior Underwriter 03/17/24 Eli Higuera Hand Funnel CoaterSenior Underwriter 10/05/24 Eli Higuera Hand Funnel CoaterSenior Underwriter 02/22/25 documented as of this encounter
--- OUTSIDE RECORDS SUMMARY | 2025-05-16 10:45 | XMS_ITS | Encounter Summary ---
Author Organization [employer] [facility] Address [address] [facility] 7t [place] [address] Care Team Providers Care Clinical Psychologist Private Practice Name Role Phone Heena Abbasi MD Primary Care Provider [phone] Encounter Details Date Type Department Care Team (Late Contact Info) Description 12/09/2022 Orders Only [facility] MED & PEDS [address] [place] [address] Heena Abbasi MD [address] [place] [address] Social History Tobacco Use Types Packs/Day Years [...] Description 05/23/2025 10:15 AM EDT Office Visit [facility] MED & PEDS [address] [place] [address] Heena Abbasi MD [address] [place] [address] 05/28/2025 10:00 AM EDT Office Visit [facility] ADULT DENTAL [address] [place] [address] Karen Shea documented as of this encounter Visit Diagnoses Not on filedocumented in this encounter Care Teams Clinical Psychologist Private Practice Relationship Specialty Start Date End Date Heena Abbasi MD [address] [place] [address] PCP - General Family Medicine 09/05/12 Eli Higuera Assistant Branch Operations ManagerChemical Equipment Sales Engineer 03/17/24 Eli Higuera Assistant Branch Operations ManagerChemical Equipment Sales Engineer 10/05/24 Eli Higuera Assistant Branch Operations ManagerChemical Equipment Sales Engineer 02/22/25 documented as of this encounter
--- OUTSIDE RECORDS SUMMARY | 2025-05-16 10:45 | XMS_ITS | Encounter Summary ---
Author Organization [employer] Address [address] [facility] 7t [place] [address] Care Team Providers Care Solar Lab Technician Name Role Phone Heena Abbasi MD Primary Care Provider [phone] Reason for Visit * Reason Onset Date Comments Med Refill 06/09/2023 Encounter Details Date Type Department Care Team ([facility] st Contact Info) Description 06/09/[address] [facility] MED & PEDS [address] [place], [place] [phone] Heena Abbasi MD 505 [place] [address] Med Refill Social History Tobacco Use Types [...] message pt has refills at pharmacy . Prize Jacker contacted pharmacy to confirm . [facility] had a system error that was corrected and patient will be picking up script later today . * Telephone Encounter - Mari Miller LPN - 06/09/2023 11:54 AM EDT 90 day supply was sent to [facility] #[id number] on 12/29/22 with 3 refills. * Telephone Encounter - Brianne Wade - 06/09/2023 11:27 AM EDT Tc from pt requesting medication refill on gemfibrozil (Lopid) 600 MG tablet to be sent to [facility]/pharmacy #[id number] - [place], [place] - [address] documented in this encounter Plan of Treatment Upcoming Encounters Date Type Department Care Team (Late st Contact Info) Description 05/23/2025 10:15 AM EDT Office Visit [facility] MED & PEDS [address] [place] [address] Heena Abbasi MD 505 [place] [address] 05/28/2025 10:00 AM EDT Office Visit [facility] [address] [place] [address] Karen Shea documented as of this encounter Visit Diagnoses Not on filedocumented in this encounter Care Teams Solar Lab Technician Relationship Specialty Start Date End Date Heena Abbasi MD [address] [place] [address] PCP - General Family Medicine 09/05/12 Eli Higuera Stock Control SupervisorPot Room Supervisor 03/17/24 Eli Higuera Stock Control SupervisorPot Room Supervisor 10/05/24 Eli Higuera Stock Control SupervisorPot Room Supervisor 02/22/25 documented as of this encounter
--- OUTSIDE RECORDS SUMMARY | 2025-05-16 10:45 | XMS_ITS | Encounter Summary ---
Author Organization [employer] Address [address] [facility] 7t [place] [address] Care Team Providers Care Manager Restaurant Name Role Phone Heena Abbasi MD Primary Care Provider [phone] Reason for Visit * Reason Onset Date Comments Med Refill 01/31/2025 Encounter Details Date Type Department Care Team ([facility] st Contact Info) Description 01/31/2025 [facility]phone [facility] [address] [place] [address] Heena Abbasi MD [address] [place], [place] [phone] Med Refill Social History Tobacco Use Types [...] encounter Miscellaneous Notes * Telephone Encounter - Mari Miller LPN - 01/31/2025 10:42 AM EDT Medication was sent to [facility] #[id number] on 11/14/24 #90 with 1 refill. * Telephone Encounter - Jeannie Jaimes - 01/31/2025 10:28 AM EDT TC from pt requesting medication refill. Medications needing refill : pantoprazole (ProtoNix) 20 MG EC tablet To be sent to: [facility]/pharmacy #[id number] - [place], [place] - [address] documented in this encounter Plan of Treatment Upcoming Encounters Date Type Department Care Team (Late st Contact Info) Description 05/23/2025 10:15 AM EDT Office Visit [facility] MED & PEDS [address] [place] [address] Heena Abbasi MD 505 [place] [address] 05/28/2025 10:00 AM EDT Office Visit [facility] ADULT DENTAL [address] [place] [address] Karen Shea documented as of this encounter Visit Diagnoses Not on filedocumented in this encounter Additional Health Concerns Assessment Noted Time PHQ-9 Depression Total Score: 5 12/31/19 10:57 AM EDT documented as of this encounter Care Teams Manager Restaurant Relationship Specialty Start Date End Date Heena Abbasi MD [address] [place] [address] PCP - General Family Medicine 09/05/12 Eli Higuera Business Analytics DirectorFinisher Merchant Products 03/17/24 Eli Higuera Business Analytics DirectorFinisher Merchant Products 10/05/24 Eli Higuera Business Analytics DirectorFinisher Merchant Products 02/22/25 documented as of this encounter
--- OUTSIDE RECORDS SUMMARY | 2025-05-16 10:45 | XMS_ITS | Encounter Summary ---
Author Organization [employer] Address 75 [facility] 7t [place] [address] Care Team Providers Care Music Orchestrator Name Role Phone Heena Abbasi MD Primary Care Provider [phone] Reason for Visit * Reason Onset Date Comments Referral 05/17/2023 Encounter Details Date Type Department Care Team ([facility] st Contact Info) Description 05/17/2023 Telephone [facility] MED & PEDS [address] [place], [place] [phone] Heena Abbasi MD 505 [place] [address] Referral Social History Tobacco Use Types Packs/Day [...] 05/17/2023 10:31 AM EDT Tc from candie ([facility]) requesting referral for pt. Location: [place] [address], [place] Date: n/a Time: n/a Specialty: packager head documented in this encounter Plan of Treatment Upcoming Encounters Date Type Department Care Team (Late st Contact Info) Description 05/23/2025 10:15 AM EDT Office Visit [facility] MED & PEDS [address] [place] [address] Heena Abbasi MD [address] [place] [address] 05/28/2025 10:00 AM EDT Office Visit [facility] ADULT DENTAL [address] [place] [address] Karen Shea documented as of this encounter Visit Diagnoses Not on filedocumented in this encounter Care Teams Music Orchestrator Relationship Specialty Start Date End Date Heena Abbasi MD [address] [place] [address] PCP - General Family Medicine 09/05/12 Eli Higuera Fretted Instrument InspectorChoir Accompanist 03/17/24 Eli Higuera Fretted Instrument InspectorChoir Accompanist 10/05/24 Eli Higuera Fretted Instrument InspectorChoir Accompanist 02/22/25 documented as of this encounter
--- OUTSIDE RECORDS SUMMARY | 2025-05-16 10:45 | XMS_ITS | Encounter Summary ---
Author Organization [email or web address] Address 75 [facility] 7t [place] [address] Care Team Providers Care Turpentine Farmer Name Role Phone Heena Abbasi MD Primary Care Provider [phone] Encounter Details Date Type Department Care Team (Late Contact Info) Description 03/05/2023 Telephone [facility] ADULT DENTAL [address] [place], [place] [phone] Anthony Arnold [address] [place] [address] Social History Tobacco Use Types Packs/Day Years [...] AM EDT Patient called in with her INDUSTRIAL GAS FITTER HELPER from her coumadin clinic to report [facility]. [facility] number was too high and patient will not be able to be seen. Informed patient to call next week to check schedule for new appt date that will coincide with a new coumadin INR apptdate as well. Patient understood DR documented in this encounter Plan of Treatment Upcoming Encounters Date Type Department Care Team ([facility] Contact Info) Description 05/23/2025 10:15 AM EDT Office Visit [facility] MED & PEDS [address] [place] [address] Heena Abbasi MD [address] [place] [address] 05/28/2025 10:00 AM EDT Office Visit [facility] ADULT DENTAL [address] [place] [address] Karen Shea documented as of this encounter Visit Diagnoses Not on filedocumented in this encounter Care Teams Turpentine Farmer Relationship Specialty Start Date End Date Heena Abbasi MD [address] [place] [address] PCP - General Family Medicine 09/05/12 Eli Higuera Dispatcher Bus And TrolleySecurities Underwriter 03/17/24 Eli Higuera Dispatcher Bus And TrolleySecurities Underwriter 10/05/24 Eli Higuera Dispatcher Bus And TrolleySecurities Underwriter 02/22/25 documented as of this encounter
[2025-05-17 08:08] LABS: Prothrombin Time Whole Bld POC 42.1 sec (11.1-13.5); ~PT, ~INR - Anti Coag Clinic 3.5 (0.9-1.1)
== END 2025-05-16 10:19 | disposition home or self-care (01) ==
LOC: HO.ACS 09:59
PROVIDERS: PCP Student in an Organized Health Care Education/Training Program; Visit Provider Internal Medicine Medical Oncology
DX: Z79.01 Long term (current) use of anticoagulants (principal)

== ENCOUNTER → 2025-05-16 09:59 | Outpatient (BNVA) | payer MEDICAID, SELFPAY | PROVIDERS: PCP Student in an Organized Health Care Education/Training Program; Visit Provider Internal Medicine Medical Oncology | DX: I26.99 Other pulmonary embolism without acute cor pulmonale (principal); Z79.01 Long term (current) use of anticoagulants; Z51.81 Encounter for therapeutic drug level monitoring | CPT/HCPCS: 85610; 99211 ==

== ENCOUNTER 2025-05-23 10:49 | Outpatient (REF) | payer MEDICAID, SELFPAY ==
--- OUTSIDE RECORDS SUMMARY | 2025-05-23 10:15 | XMS_ITS | Encounter Summary ---
Author Organization [employer] Address 75 [facility] 7t [place] [address] Care Team Providers Care Entomology Professor Name Role Phone Heena Abbasi MD Primary Care Provider [phone] Reason for Visit * Reason Comments Annual Exam Pelvic Pain Right side Encounter Details Date Type Department Care Team ([facility] st Contact Info) Description 05/23/2025 10:15 AM EDT Office Visit [facility] MED & PEDS [address] [place], [place] [phone] Heena Abbasi MD [address] [place], [place] [phone] Benign hypertension (Primary Dx); Hypercholesterolemia; Chronic atrial fibrillation (CMS/HCC); Insomnia, unspecified type; Acute bilateral low back pain without sciatica; Encounter for annual wellness visit; Cerebrovascular accident (CVA), unspecified mechanism (CMS/HCC) Social History Tobacco Use Types Packs/Day Years Used Date Smoking Tobacco: Former Cigarettes Passive Smoke Exposure: Past Smokeless Tobacco: Never Tobacco Cessation:Counseling Given: Not Answered Alcohol Use Standard Drinks/Week Comments Defer 0 (1 standard drink = 0.6 oz pur e alcohol) Depression Answer Date Recorded Patient Health Questionnaire-9 Score 7 05/23/2025 Patient Health Questionnaire-9 Score 7 05/23/2025 Last PHQ-9: Questionnaire Data Not on file 0 05/23/2025 Housing Stability Answer Date Recorded What is [...] Date Recorded Patient Health Questionnaire-2 Score 2 05/23/2025 Internet Access Answer Date Recorded Internet Access [...] Sign Reading Time Taken Comments Blood Pressure 152/80 05/23/2025 10:17 AM EDT Pulse 72 05/23/2025 10:17 AM EDT Temperature 36.3 C (97.3 F) 05/23/2025 10:17 AM EDT Respiratory Rate 18 05/23/2025 10:17 AM EDT Oxygen Saturation 96% 05/23/2025 10:17 AM EDT Inhaled Oxygen Concentration - - Weight 64.9 kg (143 lb) 05/23/2025 10:17 AM EDT Height 147.3 cm (4' 10 ) 05/23/2025 10:17 AM EDT Body Mass Index 29.89 05/23/2025 10:17 AM EDT documented in this encounter Functional Status * Over the past 2 weeks, how often have you been bothered by any of the following problems? Question Answer Date of Assessment Author Patient Health Questionnaire -2 Score 2 05/23/2025 10:19 AM [employer] Vee Daigle [place] * Little interest or pleasure in doing things Answer Date of Assessment Author More than half the days 05/23/2025 10:19 AM EDT Vee Daigle [place] * Feeling down, depressed, or hopeless Answer Date of Assessment Author Not at all 05/23/2025 10:19 AM Douglas Olmstead [place] * Trouble falling or staying asleep, or sleeping too much Answer Date of Assessment Author Several days 05/23/2025 10:19 AM Douglas Olmstead [place] * Feeling tired or having little energy Answer Date of Assessment Author More than half the days 05/23/2025 10:19 AM Vee Olmstead [place] * Poor appetite or overeating Answer Date of Assessment Author Not at all 05/23/2025 10:19 AM Douglas Olmstead [place] * Feeling bad about yourself - or that you are a failure or have let yourself or your family down Answer Date of Assessment Author Not at all 05/23/2025 10:19 AM Douglas Olmstead MA * Trouble concentrating on things, such as reading the newspaper or watching television Answer Date of Assessment Author Several days 05/23/2025 10:19 AM Douglas Olmstead [place] * Moving or speaking so slowly that other people could have noticed? Or the opposite - being so fidgety or restless that you have been moving around a lot more than usual. Answer Date of Assessment Author Several days 05/23/2025 10:19 AM Douglas Olmstead [place] * Thoughts that you would be better off or hurting yourself in some way Answer Date of Assessment Author Not at all 05/23/2025 10:19 AM Douglas Olmstead [place] * Patient Health Questionnaire-9 Score Answer Date of Assessment Author 7 05/23/2025 10:19 AM Douglas Olmstead MA * How difficult have these problems made it for you to do your work, take care of things at home, or get along with other people? Answer Date of Assessment Author Somewhat difficult 05/23/2025 10:19 AM Vee Olmstead [place] documented as of this encounter Progress Notes * Heena Abbasi MD - 05/23/2025 10:15 AM EDT Subjective Patient ID: Omaira Holly is a 60 y.o. female who presents for Annual Exam. Hypertension This is a chronic problem. The current episode started more than 1 year ago. The problem is controlled. Pertinent negatives include no chest pain, headaches, neck pain, palpitations or shortness of breath. Risk factors for coronary artery disease include family history and sedentary lifestyle. Pasttreatments include lifestyle changes. The current treatment provides significant improvement. There are no compliance problems. h/o stroke. Rash This is a new problem. The current episode started in the past 7 days. The problem has been gradually worsening since onset. The affected locations include the left lower leg. The rash is characterized by redness and pain. She was exposed to an insect bite/sting. Pertinent negatives include no shortness of breath. Past treatments include nothing. Review of Systems Constitutional: Negative. Respiratory: Negative. Negative for shortness of breath. Cardiovascular: Negative for chest pain and palpitations. Gastrointestinal: Negative. Genitourinary: Negative. Musculoskeletal: Negative for neck pain. Skin: Positive for rash. Neurological: Negative for headaches. Objective Physical Exam Constitutional: Appearance: Normal appearance. HENT: Head: Normocephalic and atraumatic. Right Ear: Tympanic membrane normal. Left Ear: Tympanic membrane normal. Mouth/Throat: Mouth: Mucous membranes are moist. Eyes: Pupils: Pupils are equal, round, and reactive to light. Cardiovascular: Rate and Rhythm: Normal rate and regular rhythm. Pulmonary: Effort: Pulmonary effort is normal. Breath sounds: Normal breath sounds. Abdominal: General: Abdomen is flat. Palpations: Abdomen is soft. Musculoskeletal: General: Normal range of motion. Skin: General: Skin is warm. Neurological: Mental Status: She is alert. Motor: Weakness present. Gait: Gait abnormal. Psychiatric: Mood and Affect: Mood normal. Behavior: Behavior normal. Assessment/Plan Diagnoses and all orders for this visit: Benign hypertension Comments: elevated Strongy advised Low salt diet and weight loss If still elevated with next visit start HCTZ 25mg Orders: - Basic Metabolic Panel; Future - Lipid Panel, Standard; Future - Hepatic Function Panel; Future Hypercholesterolemia Comments: Labs ordered today Maintain a low-sodium diet (less than 2 grams per day). Maintain a regular cardiovascular exercise program. Advised to maintain a low-fat, low-cholesterol diet. Counseled regarding importance of weight loss. Counseled re: potential co-morbidities including cardiovascular disease. Orders: - gemfibrozil (Lopid) 600 MG tablet; Take 1 tablet (600 mg) by mouth 2 times daily. Chronic atrial fibrillation (CMS/HCC) Comments: Stable Cont coumadin Orders: - warfarin (Coumadin) 4 MG tablet; Take 1 tablet by mouth daily OR DIRECTED BY THE COUMADIN CLINIC Insomnia, unspecified type Comments: Stable Acute bilateral low back pain without sciatica Comments: UA ordered Started On flexeril to be taken at bedtime Orders: - Urinalysis, Complete, with Reflex to Culture; Future Encounter for annual wellness visit Comments: Scheduled for PAP Pt refused PCV Other orders - cephalexin (Keflex) 500 MG capsule; Take 1 capsule (500 mg) by mouth 2 times daily for 5 days. - warfarin (Coumadin) 2 MG tablet; TAKE 1 TABLET BY ORAL ROUTE EVERY DAY DIRECTED BY THE COUMADIN CLINIC - Triamcinolone Acetonide 0.025 % lotion; APPLY TO SCALP TWICE A DAY IF NEEDED FOR FLARES, DECREASEUSE SYMPTOMS IMPROVE Strength: 0.025 % - cetirizine (ZyrTEC) 10 MG tablet; TAKE 1 TABLET 1-2 TIMES PER DAY FOR ITCH, RASH - cyclobenzaprine (Flexeril) 10 MG tablet; Take 1 tablet (10 mg) by mouth at bedtime. Cerebrovascular accident (CVA), unspecified mechanism (CMS/HCC) Pt will benefit from Quad Cane for better ADLs and to prevent falls documented in this encounter Plan of Treatment Upcoming Encounters Date Type Department Care Team (Late st Contact Info) Description 06/19/2025 10:20 AM EDT Procedure Visit [facility] MED & PEDS [address] [place] [address] Lauren Amaral MD [address] [place] [address] Scheduled Orders Name Type Priority Associated Diagnoses Orde r Schedule Basic Metabolic Panel Lab Routine Benign hypertension Expected: 05/23/2025 (Approximate), Expires: 05/23/2026 Lipid Panel, Standard Lab Routine Benign hypertension Expected: 05/23/2025 (Approximate), Expires: 05/23/2026 Hepatic Function Panel Lab Routine Benign hypertension Expected: 05/23/2025 (Approximate), Expires: 05/23/2026 Urinalysis, Complete, with Reflex to Culture Lab Routine Acute bilateral low back pain without sciatica Expected: 05/23/2025 (Approximate), Expires: 05/23/2026 documented as of this encounter Visit Diagnoses Diagnosis Benign hypertension- Primary Essential hypertension, benign Hypercholesterolemia Pure hypercholesterolemia Chronic atrial fibrillation (CMS/HCC) Atrial fibrillation Insomnia, unspecified type Acute bilateral low back pain without sciatica Encounter for annual wellness visit Cerebrovascular accident (CVA), unspecified mechanism (CMS/HCC) documented in this encounter Additional Health Concerns Assessment Noted Time PHQ-9 Depression Total Score: 7 05/23/20 25 10:19 AM EDT documented as of this encounter Care Teams Entomology Professor Relationship Specialty Start Date End Date Heena Abbasi MD [address] [place] [phone] PCP - General Family Medicine 09/05/12 Eli Higuera Indoor Plant TechnicianEmployment Office Clerk 03/17/24 Eli Higuera Indoor Plant TechnicianEmployment Office Clerk 10/05/24 Eli Higuera Indoor Plant TechnicianEmployment Office Clerk 02/22/25 documented as of this encounter
--- OUTSIDE RECORDS SUMMARY | 2025-05-23 12:49 | XMS_ITS | Encounter Summary ---
Author Organization [facility] Address [address] [facility] 7t [place] [address] Care Team Providers Care Information Security Name Role Phone Heena Abbasi MD Primary Care Provider [phone] Encounter Details Date Type Department Care Team (Latest Contact Info) Description 07/29/2022 Abstract [facility] CONVERSIONS Dental, Provider, DDS [...] Description 06/19/2025 10:20 AM EDT Procedure Visit [facility] CHC MED & PEDS [address] [place] [address] Lauren Amaral MD [address] [place] [address] documented as of this encounter Visit Diagnoses Not on filedocumented in this encounter Care Teams Information Security Relationship Specialty Start Date End Date Heena Abbasi MD [address] [place] [address] PCP - General Family Medicine 09/05/12 Eli Higuera Fire AdjusterStone Layer 03/17/24 Eli Higuera Fire AdjusterStone Layer 10/05/24 Eli Higuera Fire AdjusterStone Layer 02/22/25 documented as of this encounter
--- OUTSIDE RECORDS SUMMARY | 2025-05-23 12:49 | XMS_ITS | Encounter Summary ---
Author Organization [employer] Address [address] [facility] 7t [place] [address] Care Team Providers Care Forepart Rasper Name Role Phone Heena Abbasi MD Primary Care Provider [phone] Encounter Details Date Type Department Care Team (Latest Contact Info) Description 11/21/2018 Abstract [facility] CONVERSIONS Dental, Provider, DDS Social History [...] Description 06/19/2025 10:20 AM EDT Procedure Visit [facility] CHC MED & PEDS [address] [place] [address] Lauren Amaral MD [address] [place] [address] documented as of this encounter Visit Diagnoses Not on filedocumented in this encounter Care Teams Forepart Rasper Relationship Specialty Start Date End Date Heena Abbasi MD [address] [place] [id number] PCP - General Family Medicine 09/05/12 Eli Higuera Associate Juvenile Court JudgeMotor Hotel Manager 03/17/[address] Eli Higuera Associate Juvenile Court JudgeMotor Hotel Manager 10/05/24 Eli Higuera Associate Juvenile Court JudgeMotor Hotel Manager 02/22/25 documented as of this encounter
--- OUTSIDE RECORDS SUMMARY | 2025-05-23 12:49 | XMS_ITS | Encounter Summary ---
Author Organization [employer] Address [address] [facility] 7t [place] [address] Care Team Providers Care Clinical Laboratory Director Name Role Phone Heena Abbasi MD Primary Care Provider [phone] Reason for Visit * Reason Onset Date Comments Chart Prep 05/22/2025 Encounter Details Date Type Department Care Team ([facility] st Contact Info) Description 05/22/2025 Telephone [facility] CHC MED & PEDS [address] [place], [place] [phone] Heena Abbasi MD [address] [place] [address] Chart Prep Social History Tobacco Use Types Packs/Day Years [...] encounter Miscellaneous Notes * Telephone Encounter - Vee Daigle [place] - 05/22/2025 2:34 PM EDT Chart Prep Labs: done Images: done Referrals: complete Vaccines due: due Screenings: pap smear Overdue care gaps: SBIRT, PHQ-9, and Disability screen documented in this encounter Plan of Treatment Upcoming Encounters Date Type Department Care Team (Late st Contact Info) Description 06/19/2025 10:20 AM EDT Procedure Visit [facility] CHC MED & PEDS [address] [place] [address] Lauren Amaral MD [address] [place] [address] documented as of this encounter Visit Diagnoses Not on filedocumented in this encounter Additional Health Concerns Assessment Noted Time PHQ-9 Depression Total Score: 5 12/31/19 10:57 AM EDT documented as of this encounter Care Teams Clinical Laboratory Director Relationship Specialty Start Date End Date Heena Abbasi MD [address] [place] [phone] PCP - General Family Medicine 09/05/12 Eli Higuera Business Technology ProfessorSliver Cutter 03/17/24 Eli Higuera Business Technology ProfessorSliver Cutter 10/05/24 Eli Higuera Business Technology ProfessorSliver Cutter 02/22/25 documented as of this encounter
--- OUTSIDE RECORDS SUMMARY | 2025-05-23 12:49 | XMS_ITS | Encounter Summary ---
Author Organization [employer] Address [address] [facility] 7t [place] [address] Care Team Providers Care Clinical Application Specialist Name Role Phone Heena Abbasi MD Primary Care Provider [phone] Encounter Details Date Type Department Care Team (Late st Contact Info) Description 02/29/2024 Telephone C [facility] ADULT DENTAL [address] [place] [address] Perri Noble, SOREN Social History Tobacco Use [...] Description 06/19/2025 10:20 AM EDT Procedure Visit [facility] MED & PEDS [address] [place] [address] Lauren Amaral MD [address] [place] [address] documented as of this encounter Visit Diagnoses Not on filedocumented in this encounter Additional Health Concerns Assessment Noted Time PHQ-9 Depression Total Score: 5 12/31/19 24 10:57 AM EDT documented as of this encounter Care Teams Clinical Application Specialist Relationship Specialty Start Date End Date Heena Abbasi MD [address] [place] [address] PCP - General Family Medicine 09/05/12 Eli Higuera Acid BlowerEngine Cleaner 03/17/24 Eli Higuera Acid BlowerEngine Cleaner 10/05/24 Eli Higuera Acid BlowerEngine Cleaner 02/22/25 documented as of this encounter
--- OUTSIDE RECORDS SUMMARY | 2025-05-23 12:49 | XMS_ITS | Encounter Summary ---
Author Organization [employer] Address [address] [facility] 7t [place] [address] Care Team Providers Care Facility Planner Name Role Phone Heena Abbasi MD Primary Care Provider [phone] Encounter Details Date Type Department Care Team (Late Contact Info) Description 09/10/2022 Orders Only [facility] [address] [place], [place] [phone] Tierra Ashby LPN Social History Tobacco Use [...] Description 06/19/2025 10:20 AM EDT Procedure Visit [facility] CHC MED & PEDS [address] [place] [address] Lauren Amaral MD [address] [place] [address] documented as of this encounter Visit Diagnoses Not on filedocumented in this encounter Care Teams Facility Planner Relationship Specialty Start Date End Date Heena Abbasi MD [address] [place] [address] PCP - General Family Medicine 09/05/12 Eli Higuera Piston MakerInsurance Actuary 03/17/24 Eli Higuera Piston MakerInsurance Actuary 10/05/24 Eli Higuera Piston MakerInsurance Actuary 02/22/25 documented as of this encounter
--- OUTSIDE RECORDS SUMMARY | 2025-05-23 12:49 | XMS_ITS | Encounter Summary ---
Author Organization [employer] Address [address] [facility] 7t [place] [address] Care Team Providers Care Plaster Mechanic Name Role Phone Heena Abbasi MD Primary Care Provider [phone] Reason for Visit * Reason Comments Med Change Request Encounter Details Date Type Department Care Team ([facility] Contact Info) Description 05/23/2025 Refill [facility] CHC MED & PEDS [address] [place], [place] [phone] Heena Abbasi MD [address] [place] [address] Social History Tobacco Use Types Packs/Day Years [...] Questionnaire -2 Score 2 05/23/2025 10:19 AM Vee Olmstead [place] * Little interest or pleasure in doing things Answer Date of Assessment Author More than half the days 05/23/2025 10:19 AM Vee Olmstead [place] * Feeling down, depressed, or hopeless [...] Assessment Author Somewhat difficult 05/23/2025 10:19 AM [place] Vee Daigle [place] documented as of this encounter Plan of Treatment Upcoming Encounters Date Type Department Care Team (Late st Contact Info) Description 06/19/2025 10:20 AM EDT Procedure Visit [facility] MED & PEDS [address] [place] [address] Lauren Amaral MD [address] [place] [address] documented as of this encounter Visit Diagnoses Not on filedocumented in this encounter Additional Health Concerns Assessment Noted Time PHQ-9 Depression Total Score: 7 05/23/20 10:19 AM EDT documented as of this encounter Care Teams Plaster Mechanic Relationship Specialty Start Date End Date Heena Abbasi MD [address] [place] [phone] PCP - General Family Medicine 09/05/12 Eli Higuera Naval Science TeacherSpanish Teacher 03/17/24 Eli Higuera Naval Science TeacherSpanish Teacher 10/05/24 Eli Higuera Naval Science TeacherSpanish Teacher 02/22/25 documented as of this encounter
--- OUTSIDE RECORDS SUMMARY | 2025-05-23 12:49 | XMS_ITS | Encounter Summary ---
Author Organization [employer] Address [address] [facility] 7t [place] [address] Care Team Providers Care Due Diligence Coordinator Name Role Phone Heena Abbasi MD Primary Care Provider [phone] Reason for Visit * Reason Onset Date Comments Dr. Golden medical clearance ?? 11/23/2024 Encounter Details Date Type Department Care Team (Late st Contact Info) Description 11/23/2024 Telephone C [facility] ADULT DENTAL [address] [place] [address] Reynoso medical clearance [...] Upcoming Encounters Date Type Department Care Team ([facility] st Contact Info) Description 06/19/2025 10:20 AM EDT Procedure Visit [facility] CHC MED & PEDS [address] [place] [address] Lauren Amaral MD [address] [place] [address] documented as of this encounter Visit Diagnoses Not on filedocumented in this encounter Additional Health Concerns Assessment Noted Time PHQ-9 Depression Total Score: 5 12/31/19 24 10:57 AM EDT documented as of this encounter Care Teams Due Diligence Coordinator Relationship Specialty Start Date End Date Heena Abbasi MD [address] [place] [address] PCP - General Family Medicine 09/05/12 Eli Higuera Recreation SuperintendentConcrete Float Maker 03/17/24 Eli Higuera Recreation SuperintendentConcrete Float Maker 10/05/24 Eli Higuera Recreation SuperintendentConcrete Float Maker 02/22/25 documented as of this encounter
--- OUTSIDE RECORDS SUMMARY | 2025-05-23 12:49 | XMS_ITS | Encounter Summary ---
Author Organization [employer] Address [address] [facility] 7t [place] [address] Care Team Providers Care Electronic Systems Technician Name Role Phone Heena Abbasi MD Primary Care Provider [phone] Encounter Details Date Type Department Care Team (Latest Contact Info) Description 05/23/2025 Travel Social History Tobacco Use Types Packs/Day [...] Questionnaire -2 Score 2 05/23/2025 10:19 AM EDT Vee Daigle [place] * Little interest or [...] Author Not at all 05/23/2025 10:19 AM EDT Douglas Daigle MA * Patient Health Questionnaire-9 Score Answer Date of Assessment Author 7 05/23/2025 10:19 AM EDT Douglas Daigle [place] * How difficult have these problems made it for you to do your work, take care of things at home, or get along with other people? Answer Date of Assessment Author Somewhat difficult 05/23/2025 10:19 AM EDT Vee Daigle [place] documented as of this encounter Plan of Treatment Upcoming Encounters Date Type Department Care Team (Late st Contact Info) Description 06/19/2025 10:20 AM EDT Procedure Visit [facility] CHC MED & PEDS [address] [place] [address] Lauren Amaral MD [address] [place] [address] documented as of this encounter Visit Diagnoses Not on filedocumented in this encounter Additional Health Concerns Assessment Noted Time PHQ-9 Depression Total Score: 7 05/23/20 10:19 AM EDT documented as of this encounter Care Teams Electronic Systems Technician Relationship Specialty Start Date End Date Heena Abbasi MD [address] [place] [address] PCP - General Family Medicine 09/05/12 Eli Higuera Fugitive InvestigatorVeneer Patcher 03/17/24 Eli Higuera Fugitive InvestigatorVeneer Patcher 10/05/24 Eli Higuera Fugitive InvestigatorVeneer Patcher 02/22/25 documented as of this encounter
--- OUTSIDE RECORDS SUMMARY | 2025-05-23 12:49 | XMS_ITS | Clinical Summary ---
Author Organization [employer] Address [address] [facility] 7t [place] [address] Care Team Providers Care Sales Representative Advertising Name Role Phone Heena Abbasi MD Primary Care Provider [phone] Allergies No known active allergies Medications Calcium [...] prn 90 tablet 1 10/02/19 23 Active fluticasone (Cutivate) 0.005 % ointmentIndicat ions:Eczema, unspecified type APLIQUE AL AREA AFECTADA DOS VECES AL RENAY 30 g 3 05/19/20 23 Active triamcinolone (Kenalog) 0.025 % ointment APPLY [...] ELIO TABLETA TODOS [place]AGE EN [place] 30 tablet 2 04/20/20 24 Active traZODone (Desyrel) 50 MG tabletIndicatio ns:Insomnia, unspecified type TAKE 1 TABLET BY MOUTH AT BEDTIME 30 tablet 2 05/09/20 24 Active Diclofenac Sodium 1 % gelIndications: Acute bilateral low back pain, unspecified whether sciatica present APPLY 1 INCH TOPICALLY ONCE A DAY 100 g 05/15/20 24 Active Lidocaine 5 % creamIndication s:Acute right-sided low back pain with right-sided sciatica Apply topically bid 30 g 3 10/13/19 25 Active dextran 70-hypromellose (artificial tears) 0.1-0.3 % ophthalmic solutionIndicat ions:Dry eyes, bilateral Administer 1 drop into both eyes if needed in the morning, at noon, and at bedtime for dry eyes. 30 mL 11 10/31/19 25 026 Active pantoprazole (ProtoNix) 20 MG EC tabletIndicatio ns:GERD without esophagitis TAKE 1 TABLET BY MOUTH BEFORE BREAKFAST 90 tablet 1 11/14/19 25 Active cephalexin (Keflex) 500 MG capsule Take 1 capsule (500 mg) by mouth 2 times daily for 5 days. 10 capsule 05/23/20 25 025 Active warfarin (Coumadin) 2 MG tablet TAKE 1 TABLET BY ORAL ROUTE EVERY DAY DIRECTED BY THE COUMADIN CLINIC 30 tablet 11 05/23/20 25 Active warfarin (Coumadin) 4 MG tabletIndicatio ns:Chronic atrial fibrillation (CMS/HCC) Take 1 tablet by mouth daily OR DIRECTED BY THE COUMADIN CLINIC 30 tablet 1 05/23/20 25 Active gemfibrozil (Lopid) 600 MG tabletIndicatio ns:Hypercholest erolemia Take 1 tablet (600 mg) by mouth 2 times daily. 180 tablet 05/23/20 25 Active Triamcinolone Acetonide 0.025 % lotion APPLY TO SCALP TWICE A DAY IF NEEDED FOR FLARES, DECREASE USE SYMPTOMS IMPROVE Strength: 0.025 % 60 mL 3 05/23/20 25 Active cyclobenzaprine (Flexeril) 10 MG tablet Take 1 tablet (10 mg) by mouth at bedtime. 30 tablet 05/23/20 25 025 Active cetirizine (ZyrTEC) 10 MG tablet TAKE 1 TABLET BY MOUTH 1-2 TIMES PER DAY FOR ITCH, RASH 180 tablet 05/23/20 25 Active amoxicillin (Amoxil) 500 MG capsule Please take 4 capsules (2 g) 1 hour prior to dental appointment. 12 capsule 02/18/20 23 025 Discontinued warfarin (Coumadin) 2 MG tablet TAKE 1 TABLET BY ORAL ROUTE EVERY DAY DIRECTED BY THE COUMADIN CLINIC 30 tablet 11 04/05/20 025 Discontinued(R eorder (will not trigger notification to Pharmacy)) diphenhydrAMINE (Banophen) 25 MG tabletIndicatio ns:Muscle spasm Take 1 tablet (25 mg) by mouth if needed at bedtime for sleep. 90 tablet 3 10/25/19 24 025 Discontinued Triamcinolone Acetonide 0.025 % lotion APPLY TO SCALP TWICE A DAY IF NEEDED FOR FLARES, DECREASE USE SYMPTOMS IMPROVE 12/23/19 24 025 Discontinued(R eorder (will not trigger notification to Pharmacy)) cetirizine (ZyrTEC) 10 MG tablet TAKE 1 TABLET 1-2 TIMES PER DAY FOR ITCH, RASH 90 tablet 05/16/20 24 025 Discontinued(R eorder (will not trigger notification to Pharmacy)) cyclobenzaprine (Flexeril) 10 MG tablet Take 1 tablet (10 mg) by mouth 3 times daily for 10 days. 30 tablet 07/14/20 24 025 Discontinued gemfibrozil (Lopid) 600 MG tabletIndicatio ns:Hypercholest erolemia TOME ELIO TABLETA POR VIA ORAL 2 TIMES DAILY 180 tablet 11 01/13/20 25 025 Discontinued(R eorder (will not trigger notification to Pharmacy)) warfarin (Coumadin) 4 MG tabletIndicatio ns:Chronic atrial fibrillation (CMS/HCC) TAKE 1 TABLET BY MOUTH DAILY OR DIRECTED BY THE COUMADIN CLINIC 30 tablet 1 04/04/20 25 025 Discontinued(R eorder (will not trigger notification to Pharmacy)) cetirizine (ZyrTEC) 10 MG tablet TAKE 1 TABLET 1-2 TIMES PER DAY FOR ITCH, RASH 90 tablet 05/23/20 25 025 Discontinued Active Problems Problem Noted Date [...] Gentle stretching Short course of flexeril, I public relations counselor about side effect somnolence Acetaminophen 1300mg [...] Encounters Date Type Department Care Team Description 05/23/2025 10:15 AM EDT Office Visit [facility] MED & PEDS [address] [place] [address] Heena Abbasi MD Benign hypertension (Primary Dx); Hypercholesterolemia; Chronic atrial fibrillation ([facility] Insomnia, unspecified type; Acute bilateral low back pain without sciatica; Encounter for annual wellness visit; Cerebrovascular accident (CVA), unspecified mechanism ([facility]/HCC) 05/23/2025 Refill [facility] MED & [facility]ED[facility] [address] [place] [address] Heena Abbasi MD 05/23/2025 Travel 05/22/2025 Telephone [facility] MED & PED[facility] [address] [place] [address] Heena Abbasi MD Chart Prep 05/16/2025 Orders Only GENERIC EXTERNAL DATA DEPARTMENT Provider, Generic External Data 05/15/2025 Patient Outreach [facility] [address] [place] [address] Heena Abbasi MD Pre-visit Planning (SDOH screening negative and Tobacco screening negative) 05/10/2025 9:00 AM EDT Office Visit [facility] ADULT DENTAL [address] [place] [address] Ravi Neri 05/08/2025 Results Follow-Up [facility] MED & PEDS [address] [place] [address] Heena Abbasi MD BI Mammogram Screening Tomosynthesis Bilateral 05/03/2025 10:00 AM EDT Office Visit [facility] ADULT DENTAL [address] [place] [address] Ravi Neri 04/18/2025 Orders Only GENERIC EXTERNAL DATA DEPARTMENT Provider, Generic External Data 04/03/2025 Refill [facility] MED & PEDS [address] [place] [address] Heena Abbasi MD Chronic atrial fibrillation ([facility]/HCC) 03/21/2025 Orders Only GENERIC EXTERNAL DATA DEPARTMENT Provider, Generic External Data 02/22/2025 Telephone [facility] [address] [place], [place] [phone] Heena Abbasi MD Care Coordination (ICP Care [...] Mass Index 29.89 05/23/2025 10:17 AM EDT Plan of Treatment Upcoming Encounters Date Type Department Care Team (Late st Contact Info) Description 06/19/2025 10:20 AM EDT Procedure Visit [facility]EDS [address] [place] [address] Lauren Amaral MD [address] [place] [address] Health Maintenance Due Date Last Done Comments [...] years 1-dose series) 2024 COVID-19 Vaccine ( - season) 2025 11/13/2022, 01/02/2022, 02/20/2021, Additional history exists Influenza Vaccine (#1) 2025 , 06/04/2022, 09/15/2021, Additional history exists Dental Oral Exam 05/28/2025 11/24/2024, , 07/29/2022 Dental Prophylaxis 05/28/2025 11/24/2024, 0 12/14/2023, 07/29/2022 Dental X-Ray: Bitewings 11/25/2025 11/25/19, 12/14/2023, 07/29/2022 Mammogram 05/03/2026 05/03/2025, 08/09/2023, 04/06/2023, Additional history exists SDOH Screening 05/15/2026 05/15/2025 Alcohol/Substance Use Screening 05/23/2026 05/23/2025 Depression Screening 05/23/2026 05/23/2025, 05/23/20 Disability Screening 05/23/2026 05/23/2025 Tobacco Screening 05/23/2026 05/23/2025 Dental X-Ray: Full Mouth 12/14/2026 12/14/2023, 0312/2018 [...] Comments PROTHROMBIN TIME WHOLE BLD POC Routine 05/16/2025 10:09 AM EDT ~PT, ~INR - ANTI COAG CLINIC Routine 05/16/2025 10:09 AM EDT CASE PRESENTATION, DETAILED AND EXTENSIVE [...] * (ABNORMAL) PROTHROMBIN TIME WHOLE BLD POC (05/16/2025 10:09 AM EDT) Only the most recent of4 resultswithin the time period is included. Protime 42.1(H) 11.1 - 13.5 sec [facility] 05/16/2025 10:0 9 AM EDT 05/17/2025 8:08 AM EDT us Generic External Data Provider LAB BLOOD ORDERAB LES Final Result [facility] [address] [place] [address] [phone] * (ABNORMAL) ~PT, ~INR - ANTI COAG CLINIC (05/16/2025 10:09 AM EDT) Only the most recent of4 resultswithin the time period is included. Prothrombin Time INR 3.5(H) 0.9 - 1.1 [facility] Comment:METER #: [id number] TERNATIONAL NORMALIZED RATIO (INR) REFERENCE RANGES Reference RangeFor patients not on anticoagulant therapy: 0.9 - 1.1INR ranges for oral anticoagulanttherapy:For prevention and treatment of venous thrombosis and pulmonary embolism: 2.0 - 3.0For acute myocardial infarction with aspirin therapy: 2.0 - 3.0For acute myocardial infarction without aspirin therapy: 3.0 - 4.0For patients with mechanical prosthetic heart valves: 2.5 - 3.5 05/16/2025 10:0 9 AM EDT 05/17/2025 8:08 AM EDT us Generic External Data Provider LAB BLOOD ORDERAB LES Final Result [facility] [address] [place] [phone] * BI Mammogram Screening Tomosynthesis Bilateral (05/03/2025 9:25 AM EDT) Anatomical Region Laterality Modality Breast Bilateral Mammography 05/03/2025 9:25 AM EDT Narrative 05/08/2025 11:51 AM EDT [facility] [address] [place] [address] Mammography Report Signed Patient: Omaira Holly MR#: [id number] : 1965 Acct:[id number] Age/Sex: 60 / F ADM Date: 05/03/25 Loc: HO.MAMMO Attending Dr: Heena Abbasi MD Ordering Physician: Heena Abbasi MD Results: 1Negati ve Date of Service: 05/03/25 Follow Up: 1 Year From [facility] Mamm[facility] Procedure(s): MM tomosynthesis screening BI Accession Number(s): [id number] cc: Heena Abbasi MD EXAMINATION: MM SCREENING [...] in OV> 05/08/25 1148 DD/ 4 TD/TT: 05/03/2545 Spinneret Cleaner: Procedure Note Donotuseinterpreter, Image - 05/08/20[facility] [address] [place] [address] Mammography Report Signed Patient: Jose Holly#: [id number] : 1965Acct:[id number] Age/Sex: 60 / FADM Date: 05/03/25 Loc: HO.MAMMO Attending Dr: Heena Abbasi MD Ordering Physician: Heena Abbasi MDResults: 1Negati ve Date of Service: 05/03/25Follow Up: 1 Year From Orig inal Mammogram Procedure(s): MM tomosynthesis screening BI Accession Number(s): [id number] cc: Heena Abbasi MD EXAMINATION: MM SCREENING [...] Nat Potter DO 05/08/2025 11:48 AM EDT RP Dictated By: Nat Potter DO Signed By: <Electronically signed by Nat Potter DO in OV> 05/08/25 1148 DD/ TD/TT: 05/03/2545 Spinneret Cleaner: Heena Abbasi MD IMG BI PROCEDURES Final Result * (ABNORMAL) Lipid Panel, Standard (02/15/2024 10:47 AM EDT) Triglycerides 55 <150 mg/dL [facility] Comment:Desirable Triglyceri de: less than 150 mg/dLBorderline High Triglyceride 150-199 mg/dLHigh Triglyceride: 200-499 mg/dLVery High Triglyceride: greater than or equal to 5OO mg/dL Cholesterol 175 <200 mg/dL [facility] Comment:Desirable Cholestero l: less than 200 mg/dLBorderline High Cholesterol: 200-239 mg/dLHigh Cholesterol: greater than 239 mg/dL LDL Cholesterol Calculated 101(H) <100 mg/dL [facility] Comment:Desirable LDL: less than 100 mg/dLNear Optimal/Above Optimal LDL: 110- 129 mg/dLBorderline High LDL: 130-159 mg/dLHigh LDL: 160-189 mg/dLVery High LDL: greater than or equal to 190 mg/dL HDL Cholesterol 63 >40 mg/dL [facility] Comment:Desirable HDL: great er than 40 mg/dL Note: This HDL assay may give artificially low results in patients with liver disease. Blood Venous blood specimen / Unknown 02/15/2024 10:47 AM EDT 02/15/2024 10:47 AM EDT Heena Abbasi MD LAB BLOOD ORDERABLES Final Resul t [facility] [address] [place] [address] [phone] * Cologuard?? colon cancer screening (01/11/2024 9:45 AM EDT) Cologuard Result Negative Negative 01/20/20 12:00 PM EDT [facility] (CLIA #:[id number]) Comment: NEGATIVE TEST RESULT. A negative Cologuard [...] (Mando Sidhu al, N Engl J Med 2014;370(14):6604-2446) The normal value (reference range) for this assay is negative. COLOGUARD RE-SCREENING RECOMMENDATION: Periodic colorectal cancer screening is an important part of preventive healthcare for asymptomatic individuals at average risk for colorectal cancer. Following a negative Cologuard result, the [place] [employer] Society and U.S. Multi-Society Task Force screening guidelines recommend a Cologuard re-screening interval of 3 years. References: [place] [employer] Guideline for Colorectal Cancer Screening: https://www.cancer.org/cancer/mvyeb-arkzwz-invdta/eanrlistb-ahjjszrcb-xepmjyt/ac s-rec ommendations.html.; Dane DK, Feroz CR, Lauro McdainelK, Colorectal Cancer Screening: Recommendations for Physicians and Patients from the U.S. Multi-Society Task Force on Colorectal Cancer Screening , Am J Gastroenterology 2017; 112:1156-6574. TEST DESCRIPTION: Composite algorithmic analysis of stool [...] (Mando Sidhu al, N Engl J Med 2014;370(14):3060-3946.) Cologuard may produce a false negative or false positive result (no colorectal cancer or precancerous polyp present at colonoscopy follow up). A negative Cologuard test result does not guarantee the absence of CRC or advanced adenoma (pre-cancer). The current Cologuard screening interval is every 3 years. ([place] [employer] and U.S. Multi-Society Task Force). Cologuard performance data in a 10,000 patient pivotal study using colonoscopy as the reference method can be accessed at the following location: www.[employer].Team Apart/results. Additional description of the Cologuard test process, warnings and precautions can be found at www.[employer]Health[employer]Cloudcamrd.com. Stool specimen (specimen) 01/11/2024 9:45 AM EDT 01/13/2024 10:47 AM EDT us Heena Abbasi MD LAB MOLECULAR DIAGNOSTICS ORDERA BLES Final Result [facility] (CLIA #:[id number]) [place] [address], [place] [phone] from Last 3 Months or Most Recently Relevant to Health Maintenance Insurance [place] [facility] MEDICAID STAND ADULT DENTAL-[facility] MEDICAID STAND ADULT Care Teams Sales Representative Advertising Relationship Specialty Start Date End Date Heena Abbasi MD [address] [place] [phone] PCP - General Family Medicine 09/05/12 Eli Higuera Side StitcherOperations Dispatcher 03/17/24 Eli Higuera Side StitcherOperations Dispatcher 10/05/24 Eli Higuera Side StitcherOperations Dispatcher 02/22/25
--- OUTSIDE RECORDS SUMMARY | 2025-05-23 12:50 | XMS_ITS | Encounter Summary ---
Author Organization [employer] Address [address] [facility] 7t [place] [address] Care Team Providers Care Otr Van Cdl Truck Driver Name Role Phone Heena Abbasi MD Primary Care Provider [phone] Reason for Visit * Reason Onset Date Comments Referral 07/29/2023 Encounter Details Date Type Department Care Team ([facility] st Contact Info) Description 07/29/2023 Telephone [facility] [address] [place] [address] Heena Abbasi MD [address] [place], [place] [phone] Referral Social History Tobacco Use Types Packs/Day [...] Description 06/19/2025 10:20 AM EDT Procedure Visit [facility] & [facility]EDS [address] [place] [address] Lauren Amaral MD [address] [place] [address] documented as of this encounter Visit Diagnoses Not on filedocumented in this encounter Care Teams Otr Van Cdl Truck Driver Relationship Specialty Start Date End Date Heena Abbasi MD [address] [place] [phone] PCP - General Family Medicine 09/05/12 Eli Higuera Alining InspectorClay Shop Supervisor 03/17/24 Eli Higuera Alining InspectorClay Shop Supervisor 10/05/24 Eli Higuera Alining InspectorClay Shop Supervisor 02/22/25 documented as of this encounter
--- OUTSIDE RECORDS SUMMARY | 2025-05-23 12:50 | XMS_ITS | Encounter Summary ---
Author Organization [facility] Address [address] [facility] 7t [place] [address] Care Team Providers Care Roof Truss Builder Name Role Phone Heena Abbasi MD Primary Care Provider [phone] Encounter Details Date Type Department Care Team (Late Contact Info) Description 04/05/2023 Orders Only [facility] MED & PEDS [address] [place] [address] Heena Abbasi MD [address] [place] [address] Social History Tobacco Use Types Packs/Day Years [...] Department Care Team (Late Contact Info) Description 06/19/2025 10:20 AM EDT Procedure Visit [facility] MED & PEDS [address] [place] [address] Lauren Amaral MD [address] [place] [address] documented as of this encounter Visit Diagnoses Not on filedocumented in this encounter Care Teams Roof Truss Builder Relationship Specialty Start Date End Date Heena Abbasi MD [address] [place] [phone] PCP - General Family Medicine 09/05/12 Eli Higuera Airline Lounge ReceptionistTool And Die Repairer 03/17/24 Eli Higuera Airline Lounge ReceptionistTool And Die Repairer 10/05/24 Eli Higuera Airline Lounge ReceptionistTool And Die Repairer 02/22/25 documented as of this encounter
--- OUTSIDE RECORDS SUMMARY | 2025-05-23 12:50 | XMS_ITS | Encounter Summary ---
Author Organization [employer] Address [address] [facility] 7t [place] [address] Care Team Providers Care Administrative Hearing Officer Name Role Phone Heena Abbasi MD Primary Care Provider [phone] Encounter Details Date Type Department Care Team (Late Contact Info) Description 03/05/2023 Telephone [facility] ADULT DENTAL [address] [place], [place] [phone] Anthony Arnold [address] [place] [address] Social History Tobacco Use Types Packs/Day Years [...] AM EDT Patient called in with her PARTS PICKER from her coumadin clinic to report [facility]. [facility] too high and patient will not be able to be seen. Informed patient to call next week to check schedule for new appt date that will coincide with a new coumadin INR apptdate as well. Patient understood DR documented in this encounter Plan of Treatment Upcoming Encounters Date Type Department Care Team ([facility] Contact Info) Description 06/19/2025 10:20 AM EDT Procedure Visit [facility] MED & PEDS [address] [place] [address] Lauren Amaral MD [address] [place] [address] documented as of this encounter Visit Diagnoses Not on filedocumented in this encounter Care Teams Administrative Hearing Officer Relationship Specialty Start Date End Date Heena Abbasi MD [address] [place] [phone] PCP - General Family Medicine 09/05/12 Eli Higuera Aniline Press WorkerDerrick Boat Captain 03/17/24 Eli Higuera Aniline Press WorkerDerrick Boat Captain 10/05/24 Eli Higuera Aniline Press WorkerDerrick Boat Captain 02/22/25 documented as of this encounter
--- OUTSIDE RECORDS SUMMARY | 2025-05-23 12:50 | XMS_ITS | Encounter Summary ---
Author Organization [employer] Address [address] [facility] 7t [place] [address] Care Team Providers Care Position Classification Manager Name Role Phone Heena Abbasi MD Primary Care Provider [phone] Reason for Visit * Reason Onset Date Comments Med Refill 06/09/2023 Encounter Details Date Type Department Care Team ([facility] st Contact Info) Description 06/09/2023 Telephone [facility] [address] [place], [place] [phone] Heena Abbasi MD [address] [place] [address] Med Refill Social History Tobacco Use Types [...] message pt has refills at pharmacy . Tableau Lead contacted pharmacy to confirm . [facility] had a system error that was corrected and patient will be picking up script later today . * Telephone Encounter - Mari Miller LPN - 06/09/2023 11:54 AM EDT 90 day supply was sent to [facility] #[id number] on 12/29/22 with 3 refills. * Telephone Encounter - Brianne Wade - 06/09/2023 11:27 AM EDT Tc from pt requesting medication refill on gemfibrozil (Lopid) 600 MG tablet to be sent to [facility]/pharmacy #[id number] - [place], [place] - [address] documented in this encounter Plan of Treatment Upcoming Encounters Date Type Department Care Team (Late st Contact Info) Description 06/19/2025 10:20 AM EDT Procedure Visit [facility] MED & PEDS [address] [place] [address] Lauren Amaral MD [address] [place] [address] documented as of this encounter Visit Diagnoses Not on filedocumented in this encounter Care Teams Position Classification Manager Relationship Specialty Start Date End Date Heena Abbasi MD [address] [place] [address] PCP - General Family Medicine 09/05/12 Eli Higuera Grease Refining SupervisorCertified Legal Secretary Specialist 03/17/24 Eli Higuera Grease Refining SupervisorCertified Legal Secretary Specialist 10/05/24 Eli Higuera Grease Refining SupervisorCertified Legal Secretary Specialist 02/22/25 documented as of this encounter
--- OUTSIDE RECORDS SUMMARY | 2025-05-23 12:50 | XMS_ITS | Encounter Summary ---
Author Organization [facility] Address [address] [facility] 7t [place] [address] Care Team Providers Care Mold Clamper Name Role Phone Heena Abbasi MD Primary Care Provider [phone] Encounter Details Date Type Department Care Team (Late Contact Info) Description 01/01/2023 Orders Only [facility] MED & PEDS [address] [place] [address] Heena Abbasi MD [address] [place] [address] Muscle spasm Social History Tobacco Use Types [...] Description 06/19/2025 10:20 AM EDT Procedure Visit [facility] MED & PEDS [address] [place] [address] Lauren Amaral MD [address] [place] [address] documented as of this encounter Visit Diagnoses Diagnosis Muscle spasm Spasm of muscle documented in this encounter Care Teams Mold Clamper Relationship Specialty Start Date End Date Heena Abbasi MD [address] [place] [address] PCP - General Family Medicine 12/17/12 Eli Higuera Leather SplitterPersonnel Manager 03/17/24 Eli Higuera Leather SplitterPersonnel Manager 10/05/24 Eli Higuera Leather SplitterPersonnel Manager 02/22/25 documented as of this encounter
--- OUTSIDE RECORDS SUMMARY | 2025-05-23 12:50 | XMS_ITS | Encounter Summary ---
Author Organization [employer] Address [address] [facility] 7t [place] [address] Care Team Providers Care Rouge Presser Name Role Phone Heena Abbasi MD Primary Care Provider [phone] Reason for Visit * Reason Onset Date Comments Med Refill 01/31/2025 Encounter Details Date Type Department Care Team ([facility] st Contact Info) Description 01/31/2025 Telephone [facility] MEDICINE [address] [place] [address] Heena Abbasi MD [address] [place], [place] [phone] Med Refill Social History Tobacco Use Types [...] 10:42 AM EDT Medication was sent to [facility] #[id number] on 11/14/24 #90 with 1 refill. * Telephone Encounter - Jeannie Jaimes - 01/31/2025 10:28 AM EDT TC from pt requesting medication refill. Medications needing refill : pantoprazole (ProtoNix) 20 MG EC tablet To be sent to: [facility]/pharmacy #[id number] - [place], [place] - [address] [facility] documented in this encounter Plan of Treatment Upcoming Encounters Date Type Department Care Team (Late st Contact Info) Description 06/19/2025 10:20 AM EDT Procedure Visit [facility] MED & PEDS [address] [place] [address] Lauren Amaral MD [address] [place] [address] documented as of this encounter Visit Diagnoses Not on filedocumented in this encounter Additional Health Concerns Assessment Noted Time PHQ-9 Depression Total Score: 5 12/31/19 24 10:57 AM EDT documented as of this encounter Care Teams Rouge Presser Relationship Specialty Start Date End Date Heena Abbasi MD [address] [place] [phone] PCP - General Family Medicine 09/05/12 Eli Higuera Recreation Therapy Aides TeacherRubber Turner 03/17/24 Eli Higuera Recreation Therapy Aides TeacherRubber Turner 10/05/24 Eli Higuera Recreation Therapy Aides TeacherRubber Turner 02/22/25 documented as of this encounter
--- OUTSIDE RECORDS SUMMARY | 2025-05-23 12:50 | XMS_ITS | Encounter Summary ---
Author Organization [employer] Address 75 [facility] 7t [place] [address] Care Team Providers Care Rural Service Engineer Name Role Phone Heena Abbasi MD Primary Care Provider [phone] Encounter Details Date Type Department Care Team (Late Contact Info) Description 12/09/2022 Orders Only [facility] MED & PEDS [address] [place] [address] Heena Abbasi MD 505 [place] [address] Social History Tobacco Use Types Packs/Day Years [...] [facility] [address] [place] [address] Lauren Amaral MD 505 [place] [address] documented as of this encounter Visit Diagnoses Not on filedocumented in this encounter Care Teams Rural Service Engineer Relationship Specialty Start Date End Date Heena Abbasi MD [address] [place] [address] PCP - General Family Medicine 09/05/12 Eli Higuera Real Estate Administrative AssistantSock Knitting Machine Operator 03/17/24 Eli Higuera Real Estate Administrative AssistantSock Knitting Machine Operator 10/05/24 Eli Higuera Real Estate Administrative AssistantSock Knitting Machine Operator 02/22/25 documented as of this encounter
--- OUTSIDE RECORDS SUMMARY | 2025-05-23 12:50 | XMS_ITS | Encounter Summary ---
Author Organization [employer] Address 75 [facility] 7t [place] [address] Care Team Providers Care Retail Planner Name Role Phone Heena Abbasi MD Primary Care Provider [phone] Encounter Details Date Type Department Care Team (Late st Contact Info) Description 12/31/2023 Orders Only [facility] CHC MED & PEDS 505 [place], [place] [phone] Heena Abbasi MD 505 [place], [place] [phone] Social History Tobacco Use Types Packs/Day Years [...] at all 12/31/2023 10:57 AM EDT Vee Daigle MA Thoughts that you would be better off or hurting yourself in some way Not at all 12/31/2023 10:57 AM FERNANDOT Lia Daigle [place] Patient Health Questionnaire-9 Score 5 12/31/2023 10:57 AM EDT Thor Daigle [place] documented as of this encounter Plan of Treatment Upcoming Encounters Date Type Department Care Team (Late st Contact Info) Description 06/19/2025 10:20 AM EDT Procedure Visit [facility] MED & PEDS 505 [place] [address] Lauren Amaral MD 505 [place] [address] documented as of this encounter Visit Diagnoses Not on filedocumented in this encounter Additional Health Concerns Assessment Noted Time PHQ-9 Depression Total Score: 5 12/31/19 24 10:57 AM EDT documented as of this encounter Care Teams Retail Planner Relationship Specialty Start Date End Date Heena Abbasi MD [address] [place] [address] PCP - General Family Medicine 09/05/12 Eli Higuera Pearl FishermanReceiving Lead 03/17/24 Eli Higuera Pearl FishermanReceiving Lead 10/05/24 Eli Higuera Pearl FishermanReceiving Lead 02/22/25 documented as of this encounter
--- OUTSIDE RECORDS SUMMARY | 2025-05-23 12:50 | XMS_ITS | Encounter Summary ---
Author Organization [employer] Address 75 [facility] 7t [place] [address] Care Team Providers Care Sports Marketing Coordinator Name Role Phone Heena Abbasi MD Primary Care Provider [phone] Reason for Visit * Reason Onset Date Comments Referral 05/17/2023 Encounter Details Date Type Department Care Team ([facility] st Contact Info) Description 05/17/[address] [facility] CHC MED & PEDS 505 [place], [place] [phone] Heena Abbasi MD 505 [place] [address] Referral Social History Tobacco Use Types Packs/Day [...] 05/17/2023 10:31 AM EDT Tc from candie ([facility]) requesting referral for pt. 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: coroner technician documented in this encounter Plan of Treatment Upcoming Encounters Date Type Department Care Team (Late st Contact Info) Description 06/19/2025 10:20 AM EDT Procedure Visit [facility] MED & PEDS 505 [place] [address] Lauren Amaral MD 505 [place] [address] documented as of this encounter Visit Diagnoses Not on filedocumented in this encounter Care Teams Sports Marketing Coordinator Relationship Specialty Start Date End Date Heena Abbasi MD [address] [place] [address] PCP - General Family Medicine 09/05/12 Eli Higuera ConciliatorStripper And Printer 03/17/24 Eli Higuera ConciliatorStripper And Printer 10/05/24 Eli Higuera ConciliatorStripper And Printer 02/22/25 documented as of this encounter
--- OUTSIDE RECORDS SUMMARY | 2025-05-23 12:50 | XMS_ITS | Encounter Summary ---
Author Organization [employer] [facility] Address 75 [facility] 7t [place] [address] Care Team Providers Care Dishwashing Machine Repairer Name Role Phone Heena Abbasi MD Primary Care Provider [phone] Reason for Visit * Reason Onset Date Comments pre tx medication 02/16/2023 Encounter Details Date Type Department Care Team (Late Contact Info) Description 02/16/2023 Telephone [facility] ADULT DENTAL 505 [place], [place] [phone] Socorro Auguste DDS pre tx medication Social [...] [facility] MED [facility] PEDS 505 [place] [address] Lauren Amaral MD [address] [place] [address] documented as of this encounter Visit Diagnoses Not on filedocumented in this encounter Care Teams Dishwashing Machine Repairer Relationship Specialty Start Date End Date Heena Abbasi MD [address] [place] [address] PCP - General Family Medicine 09/05/12 Eli Higuera Floor AssemblerSenior Data Integration Developer 03/17/24 Eli Higuera Floor AssemblerSenior Data Integration Developer 10/05/24 Eli Higuera Floor AssemblerSenior Data Integration Developer 02/22/25 documented as of this encounter
--- OUTSIDE RECORDS SUMMARY | 2025-05-23 12:50 | XMS_ITS | Encounter Summary ---
Author Organization [employer] Address 75 [facility] 7t [place] [address] Care Team Providers Care White Goods Appliance Tech Name Role Phone Heena Abbasi MD Primary Care Provider [phone] Reason for Visit * Reason Onset Date Comments Med Refill 12/30/2022 Encounter Details Date Type Department Care Team ([facility] st Contact Info) Description 12/30/2022 Telephone [facility] MEDICINE [address] [place] [address] Heena Abbasi MD 505 [place], [place] [phone] Med Refill Social History Tobacco Use Types [...] Description 06/19/2025 10:20 AM EDT Procedure Visit [facility] CHC MED & PEDS 505 [place] [address] Lauren Amaral MD [address] [place] [address] documented as of this encounter Visit Diagnoses Not on filedocumented in this encounter Care Teams White Goods Appliance Tech Relationship Specialty Start Date End Date Heena Abbasi MD [address] [place] [address] PCP - General Family Medicine 09/05/12 Eli Higuera Supervisory HistorianPants Maker 03/17/24 Eli Higuera Supervisory HistorianPants Maker 10/05/24 Eli Higuera Supervisory HistorianPants Maker 02/22/25 documented as of this encounter
--- OUTSIDE RECORDS SUMMARY | 2025-05-23 12:50 | XMS_ITS | Encounter Summary ---
Author Organization [employer] Address 75 [facility] 7t [place] [address] Care Team Providers Care Beading Machine Operator Name Role Phone Heena Abbasi MD Primary Care Provider [phone] Reason for Visit * Reason Onset Date Comments Med Refill 03/30/2023 Encounter Details Date Type Department Care Team ([facility] st Contact Info) Description 03/30/2023 Telephone [facility] CHC MED & PEDS 505 [place], [place] [phone] Heena Abbasi MD 505 [place] [address] Med Refill Social History Tobacco Use Types [...] - 03/31/2023 8:41 AM EDT Managed by [facility] coumadin clinic. Noted INR result of 3.0 [...] Description 06/19/2025 10:20 AM EDT Procedure Visit [facility] CHC MED & PEDS [address] [place] [address] Lauren Amaral MD 505 [place] [address] documented as of this encounter Visit Diagnoses Not on filedocumented in this encounter Care Teams Beading Machine Operator Relationship Specialty Start Date End Date Heena Abbasi MD [address] [place] [address] PCP - General Family Medicine 09/05/12 Eli Higuera Monitoring EngineerOptical Glass Wet Inspector 03/17/24 Eli Higuera Monitoring EngineerOptical Glass Wet Inspector 10/05/24 Eli Higuera Monitoring EngineerOptical Glass Wet Inspector 02/22/25 documented as of this encounter
--- OUTSIDE RECORDS SUMMARY | 2025-05-23 12:50 | XMS_ITS | Encounter Summary ---
Author Organization [employer] Address 75 [facility] 7t [place] [address] Care Team Providers Care Morning Show Producer Name Role Phone Heena Abbasi MD Primary Care Provider [phone] Encounter Details Date Type Department Care Team (Latest Contact Info) Description 05/08/2025 Results Follow-Up [facility] CHC MED & PEDS [address] [place], [place] [phone] Heena Abbasi MD [address] [place], [place] [phone] BI Mammogram Screening Tomosynthesis Bilateral Social History [...] Description 06/19/2025 10:20 AM EDT Procedure Visit [facility] CHC MED & PEDS 505 [place] [address] Lauren Amaral MD 505 [place] [address] documented as of this encounter Visit Diagnoses Not on filedocumented in this encounter Additional Health Concerns Assessment Noted Time PHQ-9 Depression Total Score: 5 12/31/19 24 10:57 AM EDT documented as of this encounter Care Teams Morning Show Producer Relationship Specialty Start Date End Date Heena Abbasi MD [address] [place] [address] PCP - General Family Medicine 09/05/12 Eli Higuera Credit ControllerWeb Site Administrator 03/17/24 Eli Higuera Credit ControllerWeb Site Administrator 10/05/24 Eli Higuera Credit ControllerWeb Site Administrator 02/22/25 documented as of this encounter
[2025-05-23 14:11] LABS: Appearance Urine Clear; Glucose Urine UA Negative (Negative); PH 6.0 (5.0-9.0); Specific Gravity - Urine 1.015 (1.005-1.025); UMIC TRIGGER UACC YES
[2025-05-23 14:26] LABS: Alanine Aminotransferase 14 U/L (0-31); Albumin Level 4.4 g/dL (3.5-5.0); Alkaline Phosphatase 94 U/L (39-117); Anion Gap 12 (12-20); Aspartate Amino Transferase 25 U/L (5-31); Blood Urea Nitrogen 17 mg/dL (9-16); Calcium 8.9 mg/dL (8.4-10.2); Carbon Dioxide 25 mmol/L (22-29); Chloride 108 mmol/L (96-108); Cholesterol 184 mg/dL (<200); Estimated Glomerular Filt Rate > 60; HDL Cholesterol 62 mg/dL (>40); Potassium 4.2 mmol/L (3.3-5.1); Sodium 141 mmol/L (135-145); Total Protein 8.3 g/dL (6.5-8.0); Triglycerides 76 mg/dL (<150)
== END 2025-05-23 10:50 | disposition home or self-care (01) ==
LOC: HO.CHCLDS 10:49
PROVIDERS: Visit Provider Student in an Organized Health Care Education/Training Program
DX: M54.50 Low back pain, unspecified (principal); I10 Essential (primary) hypertension
CPT/HCPCS: 36415; 80048; 80061; 80076; 81001

== ENCOUNTER 2025-06-13 10:06 | Outpatient (AMB) | payer MEDICAID, SELFPAY ==
[2025-06-13 10:24] LABS: Prothrombin Time Whole Bld POC 26.0 sec (11.1-13.5); ~PT, ~INR - Anti Coag Clinic 2.2 (0.9-1.1)
--- NOTE | 2025-06-13 10:31 | MHC.OFFVISCO ---
Intake Intake Visit Reasons: Anticoagulation Allergies No Known Allergies Allergy (Mild, Verified 06/13/25 10:15) N/A Medication List - Last Reconciled 06/13/25 by Itzel Dick RN acetaminophen ER (Tylenol 8 Hour) 650 mg PO Q8H PRN ammonium lactate 12% 1 appl topical BID bngejav-kpvdgtuofqden-qemrdtmc 250-250-65 mg (Pain Reliever Plus) 0 tabs PO [calcium,magnesium,zinc and vitamin D3 1 tab PO DAILY] cetirizine 10 mg PO chlorhexidine gluconate 4% (Betasept Surgical Scrub) topical DAILY PRN nsdafyez-poukic-zeyrbwby acid 500 mg-800 mcg- 50 mg (Collagen 1500 Plus C) 3 caps PO DAILY cyclobenzaprine 5 mg PO BEDTIME diphenhydramine HCl (Banophen) 25 mg PO BEDTIME PRN famotidine 20 mg PO DAILY fluoxetine 10 mg PO QAM fluticasone propionate 0.005% 1 appl topical DAILY gemfibrozil 600 mg PO BID ketotifen fumarate 0.025%(0.035%) 1 drp ophthalmic (eye) BID lidocaine-prilocaine 2.5-2.5 % grams topical DAILY PRN methocarbamol 500 mg PO QID pantoprazole 20 mg PO DAILY trazodone 50 mg PO BEDTIME PRN triamcinolone acetonide 0.025% 1 appl topical BID triamcinolone acetonide 0.025% 1 appl topical BID warfarin 4 mg See Protocol PO DAILY Nursing Note NO CP,SOB,DIET/MED CHANGES,FALLS OR SX OF BLEEDING. CONTINUR PRESENT DOSE AND FOLLOW-UP IN 2 WEEKS GOOD UNDERSTANDING OF DOSING INSTR. Coding Level of Care Code Est Patient Level 1 Diagnoses Current use of anticoagulant therapy Z79.01 Assessment & Plan Assessment & Plan (1) Current use of anticoagulant therapy: Code(s): Z79.01 - terminal carman (current) use of anticoagulants Category: Medical
--- OUTSIDE RECORDS SUMMARY | 2025-06-13 12:19 | XMS_ITS | Encounter Summary ---
Author Organization [employer] Address 75 [facility] 7t [place] [address] Care Team Providers Care Branch Account Manager Name Role Phone Heena Abbasi MD Primary Care Provider [phone] Reason for Visit * Reason Onset Date Comments Referral 05/17/2023 Encounter Details Date Type Department Care Team ([facility] st Contact Info) Description 05/17/2023 Telephone [facility] CHC MED & PEDS 505 [place], [place] [phone] Heena Abbasi MD 505 [place] [address] Referral Social History Tobacco Use Types Packs/Day [...] 05/17/2023 10:31 AM EDT Tc from candie ([facility]) requesting referral for pt. Location: [place] [address], [place] Date: n/a Time: n/a Specialty: furnace repairer documented in this encounter Plan of Treatment Upcoming Encounters Date Type Department Care Team (Late st Contact Info) Description 06/19/2025 10:20 AM EDT Procedure Visit [facility] MED & PEDS [address] [place] [address] Lauren Amaral MD 505 [place] [address] documented as of this encounter Visit Diagnoses Not on filedocumented in this encounter Care Teams Branch Account Manager Relationship Specialty Start Date End Date Heena Abbasi MD [address] [place] [address] PCP - General Family Medicine 09/05/12 Eli Higuera ClocksmithManager System 03/17/24 Eli Higuera ClocksmithManager System 10/05/24 Eli Higuera ClocksmithManager System 02/22/25 documented as of this encounter
--- OUTSIDE RECORDS SUMMARY | 2025-06-13 12:19 | XMS_ITS | Encounter Summary ---
Author Organization [employer] Address 75 [facility] 7t [place] [address] Care Team Providers Care Framing Machine Tender Name Role Phone Heena Abbasi MD Primary Care Provider [phone] Reason for Visit * Reason Onset Date Comments Med Refill 03/30/2023 Encounter Details Date Type Department Care Team ([facility] st Contact Info) Description 03/30/2023 Telephone [facility] CHC MED & PEDS 505 [place], [place] [phone] Heena Abbasi MD 505 [place] [address] Med Refill Social History Tobacco Use Types [...] - 03/31/2023 8:41 AM EDT Managed by [facility] coumadin clinic. Noted [...] Description 06/19/2025 10:20 AM EDT Procedure Visit [facility] CHC MED & PEDS [address] [place] [address] Lauren Amaral MD 505 [place] [address] documented as of this encounter Visit Diagnoses Not on filedocumented in this encounter Care Teams Framing Machine Tender Relationship Specialty Start Date End Date Heena Abbasi MD [address] [place] [address] PCP - General Family Medicine 09/05/12 Eli Higuera Blade BonerSeat Joiner 03/17/24 Eli Higuera Blade BonerSeat Joiner 10/05/24 Eli Higuera Blade BonerSeat Joiner 02/22/25 documented as of this encounter
--- OUTSIDE RECORDS SUMMARY | 2025-06-13 12:19 | XMS_ITS | Encounter Summary ---
Author Organization [employer] Address 75 [facility] 7t [place] [address] Care Team Providers Care Perioperative Nurse Name Role Phone Heena Abbasi MD Primary Care Provider [phone] Reason for Visit * Reason Onset Date Comments Dr. Golden medical clearance ?? 11/23/2024 Encounter Details Date Type Department Care Team (Late st Contact Info) Description 11/23/2024 Telephone [facility] ADULT DENTAL [address] [place] [address] Reynoso medical clearance [...] is your housing situation today? I have phlylis vicente 12/21/[address] you [...] Description 06/19/2025 10:20 AM EDT Procedure Visit [facility] CHC MED & PEDS 505 [place] [address] Lauren Amaral MD 505 [place] [address] documented as of this encounter Visit Diagnoses Not on filedocumented in this encounter Additional Health Concerns Assessment Noted Time PHQ-9 Depression Total Score: 5 12/31/19 24 10:57 AM EDT documented as of this encounter Care Teams Perioperative Nurse Relationship Specialty Start Date End Date Heena Abbasi MD [address] [place] [address] PCP - General Family Medicine 09/05/12 Eli Higuera Typewriter Ribbon WinderCommercial Horticulture Instructor 03/17/24 Eli Higuera Typewriter Ribbon WinderCommercial Horticulture Instructor 10/05/24 Eli Higuera Typewriter Ribbon WinderCommercial Horticulture Instructor 02/22/25 documented as of this encounter
--- OUTSIDE RECORDS SUMMARY | 2025-06-13 12:19 | XMS_ITS | Encounter Summary ---
Author Organization [employer] Address 75 [facility] 7t [place] [address] Care Team Providers Care Lpn Instructor Name Role Phone Heena Abbasi MD Primary Care Provider [phone] Encounter Details Date Type Department Care Team (Late Contact Info) Description 09/10/2022 Orders Only [facility]BILE VACCINE [facility] [address] [place], [place] [phone] Tierra Ashby LPN Social History Tobacco Use [...] Description 06/19/2025 10:20 AM EDT Procedure Visit [facility] CHC MED & PEDS [address] [place] [address] Lauren Amaral MD 505 [place] [address] documented as of this encounter Visit Diagnoses Not on filedocumented in this encounter Care Teams Lpn Instructor Relationship Specialty Start Date End Date Heena Abbasi MD [address] [place] [address] PCP - General Family Medicine 09/05/12 Eli Higuera Telemetry TechnicianAquatics Assistant Department Head 03/17/24 Eli Higuera Telemetry TechnicianAquatics Assistant Department Head 10/05/24 Eli Higuera Telemetry TechnicianAquatics Assistant Department Head 02/22/25 documented as of this encounter
--- OUTSIDE RECORDS SUMMARY | 2025-06-13 12:19 | XMS_ITS | Encounter Summary ---
Author Organization [employer] [facility] Address 75 [facility] 7t [place] [address] Care Team Providers Care Mix House Operator Name Role Phone Heena Abbasi MD Primary Care Provider [phone] Reason for Visit * Reason Onset Date Comments pre tx medication 02/16/2023 Encounter Details Date Type Department Care Team (Late Contact Info) Description 02/16/2023 Telephone [facility] ADULT DENTAL 505 [place], [place] [phone] Socorro Auguste DDS pre tx medication Social [...] 10:20 AM EDT Procedure Visit [facility] MED & PEDS 505 [place] [address] Lauren Amaral MD [address] [place] [address] documented as of this encounter Visit Diagnoses Not on filedocumented in this encounter Care Teams Mix House Operator Relationship Specialty Start Date End Date Heena Abbasi MD [address] [place] [address] PCP - General Family Medicine 09/05/12 Eli Higuera Extended Insurance ClerkWood Dowel Machine Operator 03/17/24 Eli Higuera Extended Insurance ClerkWood Dowel Machine Operator 10/05/24 Eli Higuera Extended Insurance ClerkWood Dowel Machine Operator 02/22/25 documented as of this encounter
--- OUTSIDE RECORDS SUMMARY | 2025-06-13 12:19 | XMS_ITS | Encounter Summary ---
Author Organization [employer] [facility] Address 75 [facility] 7t [place] [address] Care Team Providers Care Gang Miner Name Role Phone Heena Abbasi MD Primary Care Provider Encounter Details Date Type Department Care Team (Late Contact Info) Description 04/05/2023 Orders Only [facility] MED & PEDS [address] [place] [address] Heena Abbasi MD 505 [place] [address] Social History Tobacco Use Types Packs/Day Years [...] 10:20 AM EDT Procedure Visit [facility] MED & PEDS [address] [place] [address] Lauren Amaral MD 505 [place] [address] documented as of this encounter Visit Diagnoses Not on filedocumented in this encounter Care Teams Gang Miner Relationship Specialty Start Date End Date Heena Abbasi MD [address] [place] [address] PCP - General Family Medicine 09/05/12 Eli Higuera Mat ManCustoms And Border Protection Officer 03/17/24 Eli Higuera Mat ManCustoms And Border Protection Officer 10/05/24 Eli Higuera Mat ManCustoms And Border Protection Officer 02/22/25 documented as of this encounter
--- OUTSIDE RECORDS SUMMARY | 2025-06-13 12:19 | XMS_ITS | Encounter Summary ---
Author Organization [employer] Address 75 [facility] 7t [place] [address] Care Team Providers Care Granulator Tender Name Role Phone Heena Abbasi MD Primary Care Provider [phone] Encounter Details Date Type Department Care Team (Late st Contact Info) Description 12/31/2023 Orders Only [facility] CHC MED & PEDS 505 [place], [place] [phone] Heena Abbasi MD 505 [place], [place] [phone] Social History Tobacco Use Types Packs/Day Years [...] [facility] [address] [place] [address] Lauren Amaral MD 505 [place] [address] documented as of this encounter Visit Diagnoses Not on filedocumented in this encounter Additional Health Concerns Assessment Noted Time PHQ-9 Depression Total Score: 5 12/31/19 24 10:57 AM EDT documented as of this encounter Care Teams Granulator Tender Relationship Specialty Start Date End Date Heena Abbasi MD [address] [place] [address] PCP - General Family Medicine 09/05/12 Eli Higuera Commercial Intelligence ManagerBuild Engineer 03/17/24 Eli Higuera Commercial Intelligence ManagerBuild Engineer 10/05/24 Eli Higuera Commercial Intelligence ManagerBuild Engineer 02/22/25 documented as of this encounter
--- OUTSIDE RECORDS SUMMARY | 2025-06-13 12:19 | XMS_ITS | Clinical Summary ---
Author Organization [employer] Address [address] [facility] 7t [place] [address] Care Team Providers Care Supervisor Lead Refinery Name Role Phone Heena Abbasi MD Primary Care Provider [phone] Allergies No known active allergies Medications Calcium [...] ELIO TABLETA TODOS [place] 30 tablet 2 04/20/20 24 Active traZODone [...] eyes. 30 mL 10/31/19 25 026 Active pantoprazole (ProtoNix) 20 MG EC tabletIndicatio ns:GERD without esophagitis TAKE 1 TABLET BY MOUTH BEFORE BREAKFAST 90 tablet 1 11/14/19 25 Active warfarin (Coumadin) 2 MG tablet TAKE 1 TABLET BY ORAL ROUTE EVERY DAY DIRECTED BY THE [facility]ADIN [facility]INIC 30 tablet 05/23/20 25 Active warfarin (Coumadin) 4 MG [...] [facility]IN[facility] 30 tablet 11 04/05/20 23 025 Discontinued(R eorder (will not trigger notification [...] [facility] 30 tablet 1 04/04/20 25 09/03/2 025 Discontinued(R eorder (will not trigger notification to Pharmacy)) cephalexin (Keflex) 500 MG capsule Take 1 capsule (500 mg) by mouth 2 times daily for 5 days. 10 capsule 05/23/20 25 025 cetirizine (ZyrTEC) 10 MG tablet TAKE 1 [...] Gentle stretching Short course of flexeril, I deputy chief counsel about side effect somnolence Acetaminophen [...] Encounters Date Type Department Care Team Description 06/13/2025 Orders Only GENERIC EXTERNAL DATA DEPARTMENT Provider, Generic External Data 05/24/2025 Telephone [facility] [address] [place] [address] Heena Abbasi MD 05/23/2025 10:15 AM EDT Office Visit [facility] [address] [place] [address] Heena Abbasi MD Benign hypertension (Primary Dx); Hypercholesterolemia; Chronic atrial fibrillation (CMS/HCC); Insomnia, unspecified type; Acute bilateral low back pain without sciatica; Encounter for annual wellness visit; Cerebrovascular accident (CVA), unspecified mechanism (CMS/HCC) 05/23/2025 Refill [facility] [address] [place] [address] Heena Abbasi MD 05/23/2025 Travel 05/22/2025 Telephone [facility] [address] [place] [address] Heena Abbasi MD Chart Prep 05/16/2025 Orders Only GENERIC EXTERNAL DATA DEPARTMENT Provider, Generic External Data 05/15/2025 Patient Outreach [facility] [address] [place] [address] Heena Abbasi MD Pre-visit Planning (SDOH screening negative and Tobacco screening negative) 05/10/2025 9:00 AM EDT Office Visit [facility] [address] [place] [address] Ravi Neri 05/08/2025 Results Follow-Up [facility] [address] [place] [address] Heena Abbasi MD BI Mammogram Screening Tomosynthesis Bilateral 05/03/2025 10:00 AM EDT Office Visit [facility] [address] [facility] [place] [address] Ravi Neri 04/18/2025 Orders Only GENERIC EXTERNAL DATA DEPARTMENT Provider, Generic External Data 04/03/2025 Refill [facility] [address] [place] [address] Heena Abbasi MD Chronic atrial fibrillation ([facility]/HCC) 03/21/2025 Orders Only GENERIC EXTERNAL [...] Description 06/19/2025 10:20 AM EDT Procedure Visit [facility] [address] [place] [address] Lauren Amaral MD [address] [place] [address] Health Maintenance Due Date Last Done Comments CT Colonography 1965 Colonoscopy 1965 FIT 1965 HIV Screening 1965 Sigmoidoscopy 1965 Hepatitis C Screening 02/11/1982 Pap Smear 02/11/1985 Cervical Cancer Screening 02/11/1994 HPV/Cotest 02/11/1994 Pneumococcal Vaccine: 50+ Years (1 of 1 - PCV) 02/11/2014 Zoster Vaccines (2 of 2) 07/30/2022 06/04/2022 RSV Patients and Patients Aged 60 years or older (1 - Risk 60-74 years 1-dose series) 2024 FOBT 01/10/2025 01/11/2024 COVID-19 Vaccine ( - season) 2025 11/13/2022, 01/02/2022, 02/20/2021, Additional history exists Influenza Vaccine (#1) 2025 , 06/04/2022, 09/15/2021, Additional history exists Dental Oral Exam 05/28/2025 11/24/2024, , 07/29/2022 Dental Prophylaxis 05/28/2025 11/24/2024, 0 12/14/2023, 07/29/2022 Dental X-Ray: Bitewings 11/25/2025 11/25/19, 12/14/2023, 07/29/2022 Mammogram 05/03/2026 05/03/2025, 08/0 09/2023, 04/06/2023, Additional history exists SDOH Screening 05/15/2026 05/15/2025 Alcohol/Substance Use Screening 05/23/2026 05/23/2025 Depression Screening 05/23/2026 05/23/2025, 05/23/20 Disability Screening 05/23/2026 05/23/2025 Tobacco Screening 05/23/2026 05/23/2025 Dental X-Ray: Full Mouth 12/14/2026 12/14/2023, 03/0 12/2018 Colorectal Cancer Screening 01/10/2027 FIT DNA/Cologuard 01/10/2027 01/11/2024 DTaP/Tdap/Td Vaccines (2 - Td or Tdap) 11/20/2027 11/19/2017, 07/25/2001 Lipid Panel 05/23/2030 05/23/2025, 05/04/2024, 02/09/2022, Additional history exists Hepatitis B Vaccines Completed [...] Comments PROTHROMBIN TIME WHOLE BLD POC Routine 06/13/2025 10:20 AM EDT ~PT, ~INR - ANTI COAG CLINIC Routine 06/13/2025 10:20 AM EDT URINALYSIS, COMPLETE, WITH REFLEX TO CULTURE Routine 05/23/2025 10:57 AM EDT Acute bilateral low back pain without sciatica HEPATIC FUNCTION PANEL Routine 05/23/2025 10:52 AM EDT Benign hypertension LIPID PANEL, STANDARD Routine 05/23/2025 10:52 AM EDT Benign hypertension BASIC METABOLIC PANEL Routine 05/23/2025 10:52 AM EDT Benign hypertension PROTHROMBIN TIME WHOLE BLD POC Routine 05/16/2025 [...] COAG CLINIC Routine 03/21/2025 10:24 AM EDT PROPHYLAXIS - ADULT Routine 11/24/2024 1 1:00 AM EST BITEWINGS - 2 RADIOGRAPHIC IMAGES Routine 11/24/2024 11:00 AM EST PERIODIC ORAL EVALUATION - ESTABLISHED PATIENT Routine 11/24/2024 11:00 AM EST LAB COLOGUARD COLON CANCER SCREEN Routine 01/11/2024 9:45 AM EDT Encounter for screening for malignant neoplasm of colon INTRAORAL - COMPLETE SERIES OF RADIOGRAPHIC IMAGES Routine 12/14/2023 10:00 AM EDT from Last 3 Months or Most Recently Relevant to Health Maintenance Results * (ABNORMAL) PROTHROMBIN TIME WHOLE BLD POC (06/13/2025 10:20 AM EDT) Only the most recent of4 resultswithin the time period is included. Protime 26.0(H) 11.1 - 13.5 sec [facility] 06/13/2025 10:2 0 AM EDT 06/13/2025 10:24 AM EDT us Generic External Data Provider LAB BLOOD ORDERAB LES Final Result [facility] [address] [place] [phone] * (ABNORMAL) ~PT, ~INR - ANTI COAG CLINIC (06/13/2025 10:20 AM EDT) Only the most recent of4 resultswithin the time period is included. Prothrombin Time INR 2.2(H) 0.9 - 1.1 [facility] Comment:METER #: [id number] TERNATIONAL NORMALIZED RATIO (INR) REFERENCE RANGES Reference RangeFor patients not on anticoagulant therapy: 0.9 - 1.1INR ranges for oral anticoagulanttherapy:For prevention and treatment of venous thrombosis and pulmonary embolism: 2.0 - 3.0For acute myocardial infarction with aspirin therapy: 2.0 - 3.0For acute myocardial infarction without aspirin therapy: 3.0 - 4.0For patients with mechanical prosthetic heart valves: 2.5 - 3.5 06/13/2025 10:2 0 AM EDT 06/13/2025 10:24 AM EDT us Generic External Data Provider LAB BLOOD ORDERAB LES Final Result [facility] [address] [place] [phone] * (ABNORMAL) Urinalysis, Complete, with Reflex to Culture (05/23/2025 10:57 AM EDT) Pathologist [facility] Color Urine Yellow [facility] Appearance Urine Clear [facility] PH 6.0 5.0 - 9.0 [facility] Glucose Urine UA Negative Negative mg/dL [facility] Urine Blood Trace(A) Negative [facility] Specific [place] - Urine 1.015 1.005 - 1.025 [facility] Urine Protein Negative Neg-Trace mg/dL [facility] Urine Ketones Negative Negative mg/dL [facility] Nitrite Urine Negative Negative [facility] Leukocyte Esterase Urine Negative Negative [facility] RBC Urine 0-2 0 - 2 /HPF [facility] Urine WBC 0-5 0 - 5 /HPF [facility] Urine Squamous Epithelial Cell 3-5 0 - 2 /HPF [facility] Urine Bacteria Trace None Seen [facility] Hyaline Casts, Urine 0-2 0 - 2 /LPF [facility] Urine 05/23/2025 10:5 7 AM EDT 05/23/2025 1:57 PM EDT Narrative [facility] - 05/23/2025 2:18 PM EDT [id number], Clean Catch Heena Abbasi MD LAB URINE ORDERABLES Final Resul t Performing Organization Address [facility] Co de Phone Number [facility] [address] [place] [address] [phone] * (ABNORMAL) Hepatic Function Panel (05/23/2025 10:52 AM EDT) Bilirubin, Total 0.2 0.0 - 1.0 mg/dL [facility] Bilirubin, Direct <0.2 0.0 - 0.5 mg/dL [facility] Aspartate Amino Transferase 25 5 - 31 U/L [facility] Alanine Aminotransferase 14 0 - 31 U/L [facility] Total Protein 8.3(H) 6.5 - 8.0 g/dL [facility] Albumin Level 4.4 3.5 - 5.0 g/dL [facility] Alkaline Phosphatase 94 39 - 117 U/L [facility] Blood Venous blood specimen / Unknown 05/23/2025 10:52 AM EDT 05/23/2025 1:54 PM EDT Heena Abbasi MD LAB BLOOD ORDERABLES Final Resul t Performing Organization Address [facility]/ZIP Co de Phone Number [facility] [address] [place] [phone] * (ABNORMAL) Lipid Panel, Standard (05/23/2025 10:52 AM EDT) Triglycerides 76 <150 mg/dL [facility] Comment:Desirable Triglyceri de: less than 150 mg/dLBorderline High Triglyceride 150-199 mg/dLHigh Triglyceride: 200-499 mg/dLVery High Triglyceride: greater than or equal to 5OO mg/dL Cholesterol 184 <200 mg/dL [facility] Comment:Desirable Cholestero l: less than 200 mg/dLBorderline High Cholesterol: 200-239 mg/dLHigh Cholesterol: greater than 239 mg/dL LDL Cholesterol Calculated 107(H) <100 mg/dL [facility] Comment:Desirable LDL: less than 100 mg/dLNear Optimal/Above Optimal LDL: 110- 129 mg/dLBorderline High LDL: 130-159 mg/dLHigh LDL: 160-189 mg/dLVery High LDL: greater than or equal to 190 mg/dL HDL Cholesterol 62 >40 mg/dL [facility] Comment:Desirable HDL: great er than 40 mg/dL Note: This HDL assay may give artificially low results in patients with liver disease. Blood Venous blood specimen / Unknown 05/23/2025 10:52 AM EDT 05/23/2025 1:54 PM EDT us Heena Abbasi MD LAB BLOOD ORDERABLES Final Resul t [facility] [address] [place] [phone] [phone] * (ABNORMAL) Basic Metabolic Panel (05/23/2025 10:52 AM EDT) Sodium 141 135 - 145 mmol/L [facility] Potassium 4.2 3.3 - 5.1 mmol/L [facility] Chloride 108 96 - 108 mmol/L [facility] Carbon Dioxide 25 22 - 29 mmol/L [facility] Anion Gap 12 12 - 20 [facility] Urea Nitrogen (BUN) 17(H) 9 - 16 mg/dL [facility] Creatinine, Serum 0.80 0.5 - 1.4 mg/dL [facility] Estimated Glomerular Filt Rate >60 [facility] Comment:Chronic Kidney Disea se: Estimated GFR < 60 mL/min/1.13a2Qdhvtk Kidney Disease: Estimated GFR < 15 mL/min/1.73m2 Glucose 78 60 - 115 mg/dL [facility] Calcium 8.9 8.4 - 10.2 mg/dL [facility] Blood Venous blood specimen / Unknown 05/23/2025 10:52 AM EDT 05/23/2025 1:54 PM EDT Heena Abbasi MD LAB BLOOD ORDERABLES Final Resul t [facility] [address] [place] [address] [phone] * BI Mammogram Screening Tomosynthesis Bilateral (05/03/2025 9:25 AM EDT) Anatomical Region Laterality Modality Breast Bilateral Mammography 05/03/2025 9:25 AM EDT Narrative 05/08/2025 11:51 AM EDT [facility] [address] [place] [address] Mammography Report Signed Patient: Omaira Holly MR#: [id number] : 1965 Acct:[id number] Age/Sex: 60 / F ADM Date: 05/03/25 Loc: HO.MAMMO Attending Dr: Heena Abbasi MD Ordering Physician: Heena Abbasi MD Results: 1Negati ve Date of Service: 05/03/25 Follow Up: 1 Year From [facility] Mammogram Procedure(s): MM tomosynthesis screening BI Accession Number(s): [id number] cc: Heena Abbasi MD EXAMINATION: MM SCREENING [...] OV> 05/08/25 1148 DD/ 4 TD/TT: 05/03/2545 Nurse Clinical: Procedure Note Donotuseinterpreter, Image - 05/08/20[facility] [address] [place] [address] Mammography Report Signed Patient: Omaira HollyMR#: [id number] : 1965Acct:[id number] Age/Sex: 60 / FADM Date: 05/03/25 Loc: HO.MAMMO Attending Dr: Heena Abbasi MD Ordering Physician: Heena Abbasi MDResults: 1Negati ve Date of Service: 05/03/25Follow Up: 1 Year From [facility] Mammogram Procedure(s): MM tomosynthesis screening BI Accession Number(s): [id number] cc: Heena Abbasi MD EXAMINATION: MM SCREENING [...] OV> 05/08/25 1148 DD/ 4 TD/TT: 05/03/2545 Nurse Clinical: Heena Abbasi MD IMG BI PROCEDURES Final Result * Cologuard?? colon cancer screening (01/11/2024 9:45 AM EDT) Cologuard Result Negative Negative 01/20/20 12:00 PM EDT [facility] (CLIA #:[id number]) Comment: NEGATIVE TEST RESULT. A negative Cologuard [...] screened with both Cologuard and colonoscopy. (Mando Jones. et al, N Engl J Med 2014;370(14):5640-6708) The normal value (reference range) for this assay is negative. COLOGUARD RE-SCREENING RECOMMENDATION: Periodic colorectal cancer screening is an important part of preventive healthcare for asymptomatic individuals at average risk for colorectal cancer. Following a negative Cologuard result, the [place] [employer] Society and U.S. Multi-Society Task Force screening guidelines recommend a Cologuard re-screening interval of 3 years. References: [place] [employer] Guideline for Colorectal Cancer Screening: https://www.cancer.org/cancer/lrclh-hxdyau-zusrvc/wqoekqitn-tpxpiwcuh-mgkjhap/ac s-rec ommendations.html.; Dane COSTELLO, Feroz GALE, Lauro McdanielK, Colorectal Cancer Screening: Recommendations for Physicians and Patients from the U.S. Multi-Society Task Force on Colorectal Cancer Screening , Am J Gastroenterology 2017; 112:9024-3801. TEST DESCRIPTION: Composite algorithmic analysis of stool [...] (Mando Sidhu al, N Engl J Med 2014;370(14):6092-9232.) Cologuard may produce a false negative or false positive result (no colorectal cancer or precancerous polyp present at colonoscopy follow up). A negative Cologuard test result does not guarantee the absence of CRC or advanced adenoma (pre-cancer). The current Cologuard screening interval is every 3 years. ([place] [employer] Society and U.S. Multi-Society Task Force). Cologuard performance data in a 10,000 patient pivotal study using colonoscopy as the reference method can be accessed at the following location: www.[employer].ihiji/results. Additional description of the Cologuard test process, warnings and precautions can be found at www.Brain in Handrd.com. Stool specimen (specimen) 01/11/2024 9:45 AM EDT 01/13/2024 10:47 AM EDT us Heena Abbasi MD LAB MOLECULAR DIAGNOSTICS ORDERA BLES Final Result [facility] (CLIA #:[id number]) [place] [address], [place] [phone] from Last 3 Months or Most Recently Relevant to Health Maintenance Insurance C3 [facility] MED[facility]ID STAND [facility] ADULT Care Teams Supervisor Lead Refinery Relationship Specialty Start Date End Date Heena Abbasi MD [address] [place] [phone] PCP - General Family Medicine 09/05/12 Eli Higuera Education ProfessionalEmbedded Software Engineer 03/17/24 Eli Higuera Education ProfessionalEmbedded Software Engineer 10/05/24 Eli Higuera Education ProfessionalEmbedded Software Engineer 02/22/25
--- OUTSIDE RECORDS SUMMARY | 2025-06-13 12:19 | XMS_ITS | Encounter Summary ---
Author Organization [employer] Address [address] [facility] 7t [place] [address] Care Team Providers Care General Adjuster Name Role Phone Heena Abbasi MD Primary Care Provider [phone] Reason for Visit * Reason Onset Date Comments Med Refill 01/31/2025 Encounter Details Date Type Department Care Team ([facility] st Contact Info) Description 01/31/2025 Telephone [facility] [address] [place] [address] Heena Abbasi MD [address] [place], [place] [phone] Med Refill Social History Tobacco Use Types [...] 10:42 AM EDT Medication was sent to [facility][id number] on 11/14/24 #90 with 1 refill. * Telephone Encounter - Jeannie Jaimes - 01/31/2025 10:28 AM EDT TC from pt requesting medication refill. Medications needing refill : pantoprazole (ProtoNix) 20 MG EC tablet To be sent to: [facility]/pharmacy #[id number] - [place], [place] - [address] [facility] documented in this encounter Plan of Treatment Upcoming Encounters Date Type Department Care Team (Late st Contact Info) Description 06/19/2025 10:20 AM EDT Procedure Visit [facility] [address] [place] [address] Lauren Amaral MD [address] [place] [address] documented as of this encounter Visit Diagnoses Not on filedocumented in this encounter Additional Health Concerns Assessment Noted Time PHQ-9 Depression Total Score: 5 12/31/19 24 10:57 AM EDT documented as of this encounter Care Teams General Adjuster Relationship Specialty Start Date End Date Heena Abbasi MD [address] [place] [phone] PCP - General Family Medicine 09/05/12 Eli Hiugera Automotive Product EngineerEp Specialist 03/17/24 Eli Higuera Automotive Product EngineerEp Specialist 10/05/24 Eli Higuera Automotive Product EngineerEp Specialist 02/22/25 documented as of this encounter
--- OUTSIDE RECORDS SUMMARY | 2025-06-13 12:19 | XMS_ITS | Encounter Summary ---
Author Organization [employer] Address [address] [facility] 7t [place] [address] Care Team Providers Care Hair And Makeup Designer Name Role Phone Heena Abbasi MD Primary Care Provider [phone] Encounter Details Date Type Department Care Team (Latest Contact Info) Description 11/21/2018 Abstract [facility] CONVERSIONS Dental, Provider, DDS Social History [...] Description 06/19/2025 10:20 AM EDT Procedure Visit [facility]S [address] [place] [address] Lauren Amaral MD [address] [place] [address] documented as of this encounter Visit Diagnoses Not on filedocumented in this encounter Care Teams Hair And Makeup Designer Relationship Specialty Start Date End Date Heena Abbasi MD [address] [place] [phone] PCP - General Family Medicine 09/05/12 Eli Higuera Conduit MechanicSenior Data Quality Analyst 03/17/24 Eli Higuera Conduit MechanicSenior Data Quality Analyst 10/05/24 Eli Higuera Conduit MechanicSenior Data Quality Analyst 02/22/25 documented as of this encounter
--- OUTSIDE RECORDS SUMMARY | 2025-06-13 12:19 | XMS_ITS | Encounter Summary ---
Author Organization [employer] Address [address] [facility] 7t [place] [address] Care Team Providers Care Client Associate Name Role Phone Heena Abbasi MD Primary Care Provider [phone] Encounter Details Date Type Department Care Team (Late Contact Info) Description 12/09/2022 Orders Only [facility] [address] [place] [address] Heena Abbasi MD [address] [place] [address] Social History Tobacco Use Types Packs/Day Years [...] 06/19/2025 10:20 AM EDT Procedure Visit [facility] [address] [place] [address] Lauren Amaral MD [address] [place] [address] documented as of this encounter Visit Diagnoses Not on filedocumented in this encounter Care Teams Client Associate Relationship Specialty Start Date End Date Heena Abbasi MD [address] [place] [phone] PCP - General Family Medicine 09/05/12 Eli Higuera Electro Winning OperatorMetal Checker 03/17/24 Eli Higuera Electro Winning OperatorMetal Checker 10/05/24 Eli Higuera Electro Winning OperatorMetal Checker 02/22/25 documented as of this encounter
--- OUTSIDE RECORDS SUMMARY | 2025-06-13 12:19 | XMS_ITS | Encounter Summary ---
Author Organization [employer] Address [address] [facility] 7t [place] [address] Care Team Providers Care Board Of Directors Name Role Phone Heena Abbasi MD Primary Care Provider [phone] Encounter Details Date Type Department Care Team (Late st Contact Info) Description 06/13/2025 Orders Only GENERIC EXTERNAL DATA [...] Upcoming Encounters Date Type Department Care Team ([facility] st Contact Info) Description 06/19/2025 10:20 AM EDT Procedure Visit [facility]EDS [address] [place] [address] Lauren Amaral MD [address] [place] [address] documented as of this encounter Procedures Procedure Name Priority Date/Time Associated Diagnosis Comments PROTHROMBIN TIME WHOLE BLD POC Routine 06/13/2025 10:20 AM EDT ~PT, ~INR - ANTI COAG CLINIC Routine 06/13/2025 10:20 AM EDT documented in this encounter Results * (ABNORMAL) PROTHROMBIN TIME WHOLE BLD POC (06/13/2025 10:20 AM EDT) Protime 26.0(H) 11.1 - 13.5 sec [facility] 06/13/2025 10:2 0 AM EDT 06/13/2025 10:24 AM EDT us Generic External Data Provider LAB BLOOD ORDERAB LES Final Result [facility] [address] [place], [place] [phone] * (ABNORMAL) ~PT, ~INR - ANTI COAG CLINIC (06/13/2025 10:20 AM EDT) Prothrombin Time INR 2.2(H) 0.9 - 1.1 [facility] Comment:METER #: [id number] TERNATIONAL NORMALIZED RATIO (INR) REFERENCE RANGES Reference [...] Provider LAB BLOOD ORDERAB LES Final Result [facility] [address] [place] [address] [phone] documented in this encounter Visit Diagnoses Not on filedocumented in this encounter Additional Health Concerns Assessment Noted Time PHQ-9 Depression Total Score: 7 05/23/20 25 10:19 AM EDT documented as of this encounter Care Teams Board Of Directors Relationship Specialty Start Date End Date Heena Abbasi MD [address] [place] [address] PCP - General Family Medicine 09/05/12 Eli Higuera Transportation Maintenance OperatorSemiconductor Wafers Etcher Stripper 03/17/24 Eli Higuera Transportation Maintenance OperatorSemiconductor Wafers Etcher Stripper 10/05/24 Eli Higuera Transportation Maintenance OperatorSemiconductor Wafers Etcher Stripper 02/22/25 documented as of this encounter
--- OUTSIDE RECORDS SUMMARY | 2025-06-13 12:19 | XMS_ITS | Encounter Summary ---
Author Organization [employer] Address [address] [facility] 7t [place] [address] Care Team Providers Care Custodian Supervisor Name Role Phone Heena Abbais MD Primary Care Provider [phone] Encounter Details Date Type Department Care Team (Latest Contact Info) Description 07/29/2022 Abstract [facility] CONVERSIONS Dental, Provider, DDS Social [...] Description 06/19/2025 10:20 AM EDT Procedure Visit [facility] MED & PEDS [address] [place] [address] Lauren Amaral MD [address] [place] [address] documented as of this encounter Visit Diagnoses Not on filedocumented in this encounter Care Teams Custodian Supervisor Relationship Specialty Start Date End Date Heena bAbasi MD [address] [place] [phone] PCP - General Family Medicine 09/05/12 Eli Higuera Italian LecturerFlavorer 03/17/24 Eli Higuera Italian LecturerFlavorer 10/05/24 Eli Higuera Italian LecturerFlavorer 02/22/25 documented as of this encounter
--- OUTSIDE RECORDS SUMMARY | 2025-06-13 12:19 | XMS_ITS | Encounter Summary ---
Author Organization [employer] Address 75 [facility] 7t [place] [address] Care Team Providers Care Laboratory Development Technician Name Role Phone Heena Abbasi MD Primary Care Provider [phone] Encounter Details Date Type Department Care Team (Late st Contact Info) Description 02/29/2024 Telephone [facility] [address] [place] [address] Perri Noble, SOREN Social History Tobacco Use [...] 06/19/2025 10:20 AM EDT Procedure Visit [facility] [address] [place] [address] Lauren Amaral MD 505 [place] [address] documented as of this encounter Visit Diagnoses Not on filedocumented in this encounter Additional Health Concerns Assessment Noted Time PHQ-9 Depression Total Score: 5 12/31/19 24 10:57 AM EDT documented as of this encounter Care Teams Laboratory Development Technician Relationship Specialty Start Date End Date Heena Abbasi MD [address] [place] [address] PCP - General Family Medicine 09/05/12 Eli Higuera Fixture MakerNutrition Manager 03/17/24 Eli Higuera Fixture MakerNutrition Manager 10/05/24 Eli Higuera Fixture MakerNutrition Manager 02/22/25 documented as of this encounter
--- OUTSIDE RECORDS SUMMARY | 2025-06-13 12:19 | XMS_ITS | Encounter Summary ---
Author Organization [employer] Address 75 [facility] 7t [place] [address] Care Team Providers Care Lockstitch Waistband Setter Name Role Phone Heena Abbasi MD Primary Care Provider [phone] Reason for Visit * Reason Onset Date Comments Med Refill 12/30/2022 Encounter Details Date Type Department Care Team ([facility] st Contact Info) Description 12/30/2022 Telephone [facility] [address] [place] [address] Heena Abbasi MD 505 [place], [place] [phone] Med Refill Social History Tobacco Use Types [...] 12/30/2022 12:39 PM EDT Pt managed by [facility] coumadin clinic. Noted INR of 3.0 on [...] [facility] 505 [place] [address] Lauren Amaral MD [address] [place] [address] documented as of this encounter Visit Diagnoses Not on filedocumented in this encounter Care Teams Lockstitch Waistband Setter Relationship Specialty Start Date End Date Heena Abbasi MD [address] [place] [address] PCP - General Family Medicine 09/05/12 Eli Higuera Professor Of TheatreConsumer Loan Underwriter 03/17/24 Eli Higuera Professor Of TheatreConsumer Loan Underwriter 10/05/24 Eli Higuera Professor Of TheatreConsumer Loan Underwriter 02/22/25 documented as of this encounter
--- OUTSIDE RECORDS SUMMARY | 2025-06-13 12:19 | XMS_ITS | Encounter Summary ---
Author Organization [employer] Address 75 [facility] 7t [place] [address] Care Team Providers Care Optometry Teacher Name Role Phone Heena Abbasi MD Primary Care Provider [phone] Reason for Visit * Reason Onset Date Comments Referral 07/29/2023 Encounter Details Date Type Department Care Team ([facility] st Contact Info) Description 07/29/2023 Telephone [facility] [address] [place] [address] Heena Abbasi MD 505 [place], [place] [phone] Referral Social History Tobacco Use Types Packs/Day [...] [facility] [address] [place] [address] Lauren Amaral MD 505 [place] [address] documented as of this encounter Visit Diagnoses Not on filedocumented in this encounter Care Teams Optometry Teacher Relationship Specialty Start Date End Date Heena Abbasi MD [address] [place] [address] PCP - General Family Medicine 09/05/12 Eli Higuera Project Structural EngineerNail Artist 03/17/24 Eli Higuera Project Structural EngineerNail Artist 10/05/24 Eli Higuera Project Structural EngineerNail Artist 02/22/25 documented as of this encounter
--- OUTSIDE RECORDS SUMMARY | 2025-06-13 12:19 | XMS_ITS | Encounter Summary ---
Author Organization [facility] [facility] Address 75 [facility] 7t [place] [address] Care Team Providers Care Small Kick Press Operator Name Role Phone Heena Abbasi MD Primary Care Provider [phone] Encounter Details Date Type Department Care Team (Late Contact Info) Description 01/01/2023 Orders Only [facility] MED & PED[facility] 505 [place] [address] Heena Abbasi MD 505 [place] [address] Muscle spasm Social History Tobacco Use Types [...] Description 06/19/2025 10:20 AM EDT Procedure Visit [facility] 505 [place] [address] Lauren Amaral MD [address] [place] [address] documented as of this encounter Visit Diagnoses Diagnosis Muscle spasm Spasm of muscle documented in this encounter Care Teams Small Kick Press Operator Relationship Specialty Start Date End Date Heena Abbasi MD [address] [place] [address] PCP - General Family Medicine 12/17/12 Eli Higuera Operational Review SergeantExport Sales Assistant 03/17/24 Eli Higuera Operational Review SergeantExport Sales Assistant 10/05/24 Eli Higuera Operational Review SergeantExport Sales Assistant 02/22/25 documented as of this encounter
--- OUTSIDE RECORDS SUMMARY | 2025-06-13 12:19 | XMS_ITS | Encounter Summary ---
Author Organization [employer] Address 75 [facility] 7t [place] [address] Care Team Providers Care Retail Shift Leader Name Role Phone Heena Abbasi MD Primary Care Provider [phone] Encounter Details Date Type Department Care Team (Latest Contact Info) Description 05/08/2025 Results Follow-Up [facility] MED & PEDS [address] [place], [place] [address] Heena Abbasi MD [address] [place], [place] [phone] BI Mammogram Screening Tomosynthesis Bilateral Social History [...] 10:20 AM EDT Procedure Visit [facility] MED & PEDS 505 [place] [address] Lauren Amaral MD 505 [place] [address] documented as of this encounter Visit Diagnoses Not on filedocumented in this encounter Additional Health Concerns Assessment Noted Time PHQ-9 Depression Total Score: 5 12/31/19 24 10:57 AM EDT documented as of this encounter Care Teams Retail Shift Leader Relationship Specialty Start Date End Date Heena Abbasi MD [address] [place] [address] PCP - General Family Medicine 09/05/12 Eli Higuera Log Loader HelperBenefits Specialist Recruiter 03/17/24 Eli Higuera Log Loader HelperBenefits Specialist Recruiter 10/05/24 Eli Higuera Log Loader HelperBenefits Specialist Recruiter 02/22/25 documented as of this encounter
--- OUTSIDE RECORDS SUMMARY | 2025-06-13 12:19 | XMS_ITS | Encounter Summary ---
Author Organization [employer] Address 75 [facility] 7t [place] [address] Care Team Providers Care Conservation Planner Name Role Phone Heena Abbasi MD Primary Care Provider [phone] Encounter Details Date Type Department Care Team (Late Contact Info) Description 03/05/2023 Telephone [facility] ADULT DENTAL [address] [place], [place] [phone] Anthony Arnold 230 [place] [address] Social History Tobacco Use Types Packs/Day Years [...] AM EDT Patient called in with her SPRAY GUNNER from her coumadin clinic to report IN[facility] number [facility]. [facility] that number was too high and patient will not be able to be seen. Informed patient to call next week to check schedule for new appt date that will coincide with a new coumadin INR apptdate as well. Patient understood DR documented in this encounter Plan of Treatment Upcoming Encounters Date Type Department Care Team ([facility] Contact Info) Description 06/19/2025 10:20 AM EDT Procedure Visit [facility] MED & PEDS [address] [place] [address] Lauren Amaral MD [address] [place] [address] documented as of this encounter Visit Diagnoses Not on filedocumented in this encounter Care Teams Conservation Planner Relationship Specialty Start Date End Date Heena Abbasi MD [address] [place] [address] PCP - General Family Medicine 09/05/12 Eli Higuera LocksmithCash Accountant 03/17/24 Eli Higuera LocksmithCash Accountant 10/05/24 Eli Higuera LocksmithCash Accountant 02/22/25 documented as of this encounter
--- OUTSIDE RECORDS SUMMARY | 2025-06-13 12:19 | XMS_ITS | Encounter Summary ---
Author Organization [employer] Address [address] [facility] 7t [place] [address] Care Team Providers Care Clearing House Clerk Name Role Phone Heena Abbasi MD Primary Care Provider [phone] Reason for Visit * Reason Onset Date Comments Med Refill 06/09/2023 Encounter Details Date Type Department Care Team ([facility] st Contact Info) Description 06/09/2023 Telephone [facility] MED & PEDS 505 [place], [place] [phone] Heena Abbasi MD 505 [place] [address] Med Refill Social History Tobacco Use Types [...] message pt has refills at pharmacy . Straddle Carrier Operator contacted pharmacy to confirm . [facility] had a system error that was corrected and patient will be picking up script later today . * Telephone Encounter - Mari Miller LPN - 06/09/2023 11:54 AM EDT 90 day supply was sent to [facility] #[id number] on 12/29/22 with 3 refills. * Telephone Encounter - Brianne Wade - 06/09/2023 11:27 AM EDT Tc from pt requesting medication refill on gemfibrozil (Lopid) 600 MG tablet to be sent to [facility]/pharmacy #[id number] - [place], [place] - [address] documented in this encounter Plan of Treatment Upcoming Encounters Date Type Department Care Team (Late st Contact Info) Description 06/19/2025 10:20 AM EDT Procedure Visit [facility] MED & PEDS [address] [place] [address] Lauren Amaral MD [address] [place] [address] documented as of this encounter Visit Diagnoses Not on filedocumented in this encounter Care Teams Clearing House Clerk Relationship Specialty Start Date End Date Heena Abbasi MD [address] [place] [address] PCP - General Family Medicine 09/05/12 Eli Higuera Sand Cutter OperatorSenior It Assistant 03/17/24 Eli Higuera Sand Cutter OperatorSenior It Assistant 10/05/24 Eli Higuera Sand Cutter OperatorSenior It Assistant 02/22/25 documented as of this encounter
== END 2025-06-13 10:32 | disposition home or self-care (01) ==
LOC: HO.ACS 10:06
PROVIDERS: PCP Student in an Organized Health Care Education/Training Program; Visit Provider Internal Medicine Medical Oncology
DX: Z79.01 Long term (current) use of anticoagulants (principal)

== ENCOUNTER → 2025-06-13 10:06 | Outpatient (BNVA) | payer MEDICAID, SELFPAY | PROVIDERS: PCP Student in an Organized Health Care Education/Training Program; Visit Provider Internal Medicine Medical Oncology | DX: I26.99 Other pulmonary embolism without acute cor pulmonale (principal); Z79.01 Long term (current) use of anticoagulants; Z51.81 Encounter for therapeutic drug level monitoring | CPT/HCPCS: 85610; 99211 ==

== ENCOUNTER 2025-06-19 14:53 | Outpatient (REF) | payer MEDICAID, SELFPAY ==
--- OUTSIDE RECORDS SUMMARY | 2025-06-19 10:20 | XMS_ITS | Encounter Summary ---
Author Organization [employer] Address 75 [facility] 7t [place] [address] Care Team Providers Care Seismograph Observer Name Role Phone Heena Abbasi MD Primary Care Provider [phone] Reason for Referral * Imaging (Routine) - Pending Review Specialty Diagnoses / Procedures Referred By Naomi clark Referred To Contact Radiology Diagnoses Screening for lung cancer Procedures CT Lung Screening Low dose Lauren Amaral MD 505 [place] [address] Phone: tel: fax: Referral ID Status Reason Start Date Expiration Date V isits Requested Visits Authorized [id number] Pending Review 06/19/2025 06/19/2026 1 1 Reason for Visit * Reason Comments Cervical Cancer Screening Encounter Details Date Type Department Care Team (Latest Contact Info) Description 06/19/2025 10:20 AM EDT Procedure Visit [facility] MED & PEDS [address] [place] [address] Lauren Amaral MD 505 [place] [address] Screening for lung cancer (Primary Dx); Encounter [...] Care Team (Late st Contact Info) Description 06/20/2025 2:00 PM EDT Office Visit [facility]EDS [address] [place] [address] 07/09/2025 11:30 AM EDT Clinical Support [facility] [address] [place] [address] 08/06/2025 1:15 PM EST Office Visit [facility]EDS [address] [place] [address] Lauren Amaral MD [address] [place] [address] Scheduled Orders Name Type Priority Associated Diagnoses [...] documented as of this encounter Care Teams Seismograph Observer Relationship Specialty Start Date End Date Heena Abbasi MD [address] [place] [address] PCP - General Family Medicine 09/05/12 Eli Higuera Ticket WorkerAirplane Refueler 03/17/24 Eli Higuera Ticket WorkerAirplane Refueler 10/05/24 Eli Higuera Ticket WorkerAirplane Refueler 02/22/25 documented as of this encounter
--- OUTSIDE RECORDS SUMMARY | 2025-06-19 16:13 | XMS_ITS | Encounter Summary ---
Author Organization [employer] Address [address] [facility] 7t [place] [address] Care Team Providers Care Field Observer Name Role Phone Heena Abbasi MD Primary Care Provider [phone] Reason for Visit * Reason Onset Date Comments chart prep 06/18/2025 Encounter Details Date Type Department Care Team ([facility] st Contact Info) Description 06/18/2025 Telephone [facility] MED & PEDS [address] [place], [place] [phone] Heena Abbasi MD [address] [place] [address] chart prep Social History Tobacco Use Types Packs/Day Years [...] encounter Miscellaneous Notes * Telephone Encounter - Ramonita Mercer MA - 06/18/2025 11:03 AM EDT Chart Prep Labs: not applicable Images: not applicable Referrals: not applicable Vaccines due: Covid, Flu, PCV20, RSV, and Zoster Screenings: STI screening and LMP Overdue care gaps: Not applicable documented in this encounter Plan of Treatment Upcoming Encounters Date Type Department Care Team ([facility] st Contact Info) Description 06/20/2025 2:00 PM EDT Office Visit [facility] MED & PEDS [address] [place] [address] 07/09/2025 11:30 AM EDT Clinical Support [facility] MED & PEDS [address] [place] [address] 08/06/2025 1:15 PM EST Office Visit [facility] MED [facility] PEDS [address] [place] [address] Lauren Amaral MD [address] [place] [address] documented as of this encounter Visit Diagnoses Not on filedocumented in this encounter Additional Health Concerns Assessment Noted Time PHQ-9 Depression Total Score: 7 05/23/20 25 10:19 AM EDT documented as of this encounter Care Teams Field Observer Relationship Specialty Start Date End Date Heena Abbasi MD [address] [place] [address] PCP - General Family Medicine 09/05/12 Eli Higuera Overhead ForemanMotion Picture Projectionist 03/17/24 Eli Higuera Overhead ForemanMotion Picture Projectionist 10/05/24 Eli Higuera Overhead ForemanMotion Picture Projectionist 02/22/25 documented as of this encounter
--- OUTSIDE RECORDS SUMMARY | 2025-06-19 16:13 | XMS_ITS | Encounter Summary ---
Author Organization [facility] [facility] Address 75 [facility] 7t [place] [address] Care Team Providers Care Regional Guide Name Role Phone Heena Abbasi MD Primary Care Provider [phone] Encounter Details Date Type Department Care Team (Latest Contact Info) Description 07/29/2022 Abstract [facility] CONVERSIONS Dental, Provider, DDS Social History [...] Description 06/20/2025 2:00 PM EDT Office Visit [facility] MED & PEDS [address] [place] [address] 07/09/2025 11:30 AM EDT Clinical Support [facility] MED & PEDS [address] [place] [address] 08/06/2025 1:15 PM EST Office Visit [facility] MED & PEDS [address] [place] [address] Lauren Amaral MD 505 [place] [address] documented as of this encounter Visit Diagnoses Not on filedocumented in this encounter Care Teams Regional Guide Relationship Specialty Start Date End Date Heena Abbasi MD [address] [place] [address] PCP - General Family Medicine 09/05/12 Eli Higuera Boiler Coverer HelperNuclear Medicine Pet Ct Technologist 03/17/24 lEi Higuera Boiler Coverer HelperNuclear Medicine Pet Ct Technologist 10/05/24 Eli Higuera Boiler Coverer HelperNuclear Medicine Pet Ct Technologist 02/22/25 documented as of this encounter
--- OUTSIDE RECORDS SUMMARY | 2025-06-19 16:13 | XMS_ITS | Encounter Summary ---
Author Organization [facility] Address [address] [facility] 7t [place] [address] Care Team Providers Care Jackspooler Name Role Phone Heena Abbasi MD Primary Care Provider [phone] Reason for Visit * Reason Onset Date Comments pre tx medication 02/16/2023 Encounter Details Date Type Department Care Team (Late Contact Info) Description 02/16/2023 Telephone [facility] AD[facility] D[facility]AL [address] [place], [place] [phone] Socorro Auguste DDS pre tx medication Social [...] Department Care Team (Late Contact Info) Description 06/20/2025 2:00 PM EDT Office Visit [facility] MED & PEDS [address] [place] [address] 07/09/2025 11:30 AM EDT Clinical Support [facility] MED & PEDS [address] [place] [address] 08/06/2025 1:15 PM EST Office Visit [facility] MED & PEDS [address] [place] [address] Lauren Amaral MD [address] [place] [address] documented as of this encounter Visit Diagnoses Not on filedocumented in this encounter Care Teams Jackspooler Relationship Specialty Start Date End Date Heena Abbasi MD [address] [place] [address] PCP - General Family Medicine 09/05/12 Eli Higuera Social Work ProfessorTester Food Products 03/17/24 Eli Higuera Social Work ProfessorTester Food Products 10/05/24 Eli Higuera Social Work ProfessorTester Food Products 02/22/25 documented as of this encounter
--- OUTSIDE RECORDS SUMMARY | 2025-06-19 16:13 | XMS_ITS | Encounter Summary ---
Author Organization [employer] Address 75 [facility] 7t [place] [address] Care Team Providers Care Airline Captain Name Role Phone Heena Abbasi MD Primary Care Provider [phone] Reason for Visit * Reason Onset Date Comments Dr. Golden medical clearance ?? 11/23/2024 Encounter Details Date Type Department Care Team (Late st Contact Info) Description 11/23/2024 Telephone [facility] ADULT DENTAL [address] [place] [address] Reynoso medical clearance [...] Description 06/20/2025 2:00 PM EDT Office Visit [facility] MED & PEDS [address] [place] [address] 07/09/2025 11:30 AM EDT Clinical Support [facility] MED & PEDS [address] [place] [address] 08/06/2025 1:15 PM EST Office Visit [facility] MED & PEDS [address] [place] [address] Lauren Amaral MD [address] [place] [address] documented as of this encounter Visit Diagnoses Not on filedocumented in this encounter Additional Health Concerns Assessment Noted Time PHQ-9 Depression Total Score: 5 12/31/19 24 10:57 AM EDT documented as of this encounter Care Teams Airline Captain Relationship Specialty Start Date End Date Heena Abbasi MD [address] [place] [address] PCP - General Family Medicine 09/05/12 Eli Higuera Butt WelderManganese Heater 03/17/24 Eli Higuera Butt WelderManganese Heater 10/05/24 Eli Higuera Butt WelderManganese Heater 02/22/25 documented as of this encounter
--- OUTSIDE RECORDS SUMMARY | 2025-06-19 16:13 | XMS_ITS | Encounter Summary ---
Author Organization [employer] Address [address] [place] [address] Care Team Providers Care Pizzamaker Name Role Phone Heena Abbasi MD Primary Care Provider Reason for Visit * Reason Onset Date Comments Med Refill 01/31/2025 Encounter Details Date Type Department Care Team ([facility] st Contact Info) Description 01/31/2025 Telephone [facility] [address] [place] [address] Heena Abbasi MD [address] [place], [place] [phone] Med Refill Social History Tobacco Use Types [...] 10:42 AM EDT Medication was sent to [facility] #[id number] on 11/14/24 #90 with 1 refill. * Telephone Encounter - Jeannie Jaimes - 01/31/2025 10:28 AM EDT TC from pt requesting medication refill. Medications needing refill : pantoprazole (ProtoNix) 20 MG EC tablet To be sent to: [facility]/pharmacy #[id number] - [place], [place] - [address] documented in this encounter Plan of Treatment Upcoming Encounters Date Type Department Care Team (Late st Contact Info) Description 06/20/2025 2:00 PM EDT Office Visit [facility]S [address] [place] [address] 07/09/2025 11:30 AM EDT Clinical Support [facility] [address] [place] [address] 08/06/2025 1:15 PM EST Office Visit [facility] [address] [place] [address] Lauren Amaral MD [address] [place] [address] documented as of this encounter Visit Diagnoses Not on filedocumented in this encounter Additional Health Concerns Assessment Noted Time PHQ-9 Depression Total Score: 5 12/31/19 24 10:57 AM EDT documented as of this encounter Care Teams Pizzamaker Relationship Specialty Start Date End Date Heena Abbasi MD [address] [place] [address] PCP - General Family Medicine 09/05/12 Eli Higuera Specimen TransporterStave Hewer 03/17/24 Eli Higuera Specimen TransporterStave Hewer 10/05/24 Eli Higuera Specimen TransporterStave Hewer 02/22/25 documented as of this encounter
--- OUTSIDE RECORDS SUMMARY | 2025-06-19 16:13 | XMS_ITS | Clinical Summary ---
Author Organization [employer] Address [address] [place] [address] Care Team Providers Care Employee'S Representative Name Role Phone Heena Abbasi MD Primary Care Provider [phone] Allergies No known active allergies Medications Calcium Carb-Cholecalci ferol 500-10 MG-MCG tablet Take 1 tablet by mouth 1 (one) time each day. 021 Active cyclobenzaprine (Flexeril) 5 MG tablet Take 1 tablet by mouth at bedtime. 022 Active ferrous sulfate 325 (65 Fe) MG tablet Take 1 tablet by mouth 1 (one) time each day. 022 Active lidocaine-prilo jean paul (Emla) 2.5-2.5 % cream APPLY BY TOPICAL ROUTE EVERY DAY NEEDED. 022 Active chlorhexidine (Hibiclens) 4 % external liquidIndicatio ns:Hydradenitis Apply topically if needed each day for wound care. 100 mL 3 023 Active aspirin-acetami nophen-caffeine (Excedrin Migraine) 250-250-65 MG tabletIndicatio ns:Hypercholest erolemia take 1 tablet by oral route every 8 hours prn 90 tablet 1 023 Active fluticasone (Cutivate) 0.005 % ointmentIndicat ions:Eczema, unspecified type APLIQUE AL AREA AFECTADA DOS VECES AL RENAY 30 g 3 023 Active triamcinolone (Kenalog) 0.025 % ointment APPLY TO CHEST TWICE DAILY NEEDED FOR FLARES, DECREASE USE SYMPTOMS IMPROVE 024 Active ammonium lactate (Amlactin) 12 % cream APPLY TO ARMS, TRUNK, AND LEGS TWICE A DAY Active acetaminophen (Tylenol 8 Hour) 650 MG ER tabletIndicatio ns:Acute bilateral low back pain, unspecified whether sciatica present Take 1 tablet (650 mg) by mouth every 8 (eight) hours if needed for moderate pain or mild pain. 30 tablet 024 Active FLUoxetine (PROzac) 10 MG tabletIndicatio ns:Flushing, menopausal TOME ELIO TABLETA TODOS LOS SAGE EN LA [place] 30 tablet 2 024 Active traZODone (Desyrel) 50 MG tabletIndicatio ns:Insomnia, unspecified type TAKE 1 TABLET BY MOUTH AT BEDTIME 30 tablet 2 024 Active Diclofenac Sodium 1 % gelIndications: Acute bilateral low back pain, unspecified whether sciatica present APPLY 1 INCH TOPICALLY ONCE A DAY 100 g 024 Active Lidocaine 5 % creamIndication s:Acute right-sided low back pain with right-sided sciatica Apply topically bid 30 g 3 025 Active dextran 70-hypromellose (artificial tears) 0.1-0.3 % ophthalmic solutionIndicat ions:Dry eyes, bilateral Administer 1 drop into both eyes if needed in the morning, at noon, and at bedtime for dry eyes. 30 mL 025 2025 Active pantoprazole (ProtoNix) 20 MG EC tabletIndicatio ns:GERD without esophagitis TAKE 1 TABLET BY MOUTH BEFORE BREAKFAST 90 tablet 025 Active warfarin (Coumadin) 2 MG tablet TAKE 1 TABLET BY ORAL ROUTE EVERY DAY DIRECTED BY THE COUMADIN CLINIC 30 tablet 025 Active warfarin (Coumadin) 4 MG tabletIndicatio ns:Chronic atrial fibrillation (CMS/HCC) (HCC) Take 1 tablet by mouth daily OR DIRECTED BY THE COUMADIN CLINIC 30 tablet 025 Active gemfibrozil (Lopid) 600 MG tabletIndicatio ns:Hypercholest erolemia Take 1 tablet (600 mg) by mouth 2 times daily. 180 tablet 025 Active Triamcinolone Acetonide 0.025 % lotion APPLY TO SCALP TWICE A DAY IF NEEDED FOR FLARES, DECREASE USE SYMPTOMS IMPROVE Strength: 0.025 % 60 mL 3 Active cyclobenzaprine (Flexeril) 10 MG tablet Take 1 tablet (10 mg) by mouth at bedtime. 30 tablet 025 2024 Active cetirizine (ZyrTEC) 10 MG tablet TAKE 1 TABLET BY MOUTH 1-2 TIMES PER DAY FOR ITCH, RASH 180 tablet Active BP Wash 10 % external wash APPLY TO INFRAMAMMARY 1 TO 2 TIMES PER DAY THEN RINSE Active Clindamycin Phosphate (Clindamycin Phos, Twice-Daily,) 1 % gel APPLY TO INFRAMAMMARY 1 TO 2 TIMES PER DAY AFTER BENZOYL PEROXIDE WASH Active Fluocinolone Acetonide Scalp 0.01 % oil APPLY AT BEDTIME OVERNIGHT UNDER OCCLUSION (DO-RAG) Active polyvinyl alcohol (Liquifilm Tears) 1.4 % ophthalmic solution PLACE 1 DROP IN EACH EYE THREE TIMES DAILY IN THE MORNING, AT NOON, AND AT BEDTIME NEEDED FOR DRY EYES Active amoxicillin (Amoxil) 500 MG capsule Please take 4 capsules (2 g) 1 hour prior to dental appointment. 12 capsule 023 2024 Discontinued warfarin (Coumadin) 2 MG tablet TAKE 1 TABLET BY ORAL ROUTE EVERY DAY DIRECTED BY THE COUMADIN CLINIC 30 tablet 11 023 2024 Discontinued(R eorder (will not trigger notification to Pharmacy)) diphenhydrAMINE (Banophen) 25 MG tabletIndicatio ns:Muscle spasm Take 1 tablet (25 mg) by mouth if needed at bedtime for sleep. 90 tablet 3 024 2024 Discontinued Triamcinolone Acetonide 0.025 % lotion APPLY TO SCALP TWICE A DAY IF NEEDED FOR FLARES, DECREASE USE SYMPTOMS IMPROVE 024 2024 Discontinued(R eorder (will not trigger notification to Pharmacy)) cetirizine (ZyrTEC) 10 MG tablet TAKE 1 TABLET 1-2 TIMES PER DAY FOR ITCH, RASH 90 tablet 024 2024 Discontinued(R eorder (will not trigger notification to Pharmacy)) cyclobenzaprine (Flexeril) 10 MG tablet Take 1 tablet (10 mg) by mouth 3 times daily for 10 days. 30 tablet 024 2024 Discontinued gemfibrozil (Lopid) 600 MG tabletIndicatio ns:Hypercholest erolemia TOME ELIO TABLETA POR VIA ORAL 2 TIMES DAILY 180 tablet 11 025 2024 Discontinued(R eorder (will not trigger notification to Pharmacy)) warfarin (Coumadin) 4 MG tabletIndicatio ns:Chronic atrial fibrillation (CMS/HCC) (HCC) TAKE 1 TABLET BY MOUTH DAILY OR DIRECTED BY THE COUMADIN CLINIC 30 tablet 1 025 2024 Discontinued(R eorder (will not trigger notification to Pharmacy)) cephalexin (Keflex) 500 MG capsule Take 1 capsule (500 mg) by mouth 2 times daily for 5 days. 10 capsule 025 2024 cetirizine (ZyrTEC) 10 MG tablet TAKE 1 TABLET 1-2 TIMES PER DAY FOR ITCH, RASH 90 tablet 025 2024 Discontinued Active Problems Problem Noted Date Diagnosed [...] Gentle stretching Short course of flexeril, I prenatal genetic counselor about side effect somnolence Acetaminophen 1300mg [...] call ambulance Rash 07/02/2023 Chronic atrial fibrillation (CMS/HCC) 10/19/2022 Benign hypertension 03/06/2013 Assessment & Plan [...] Encounters Date Type Department Care Team Description 06/19/2025 10:20 AM EDT Procedure Visit [facility] [address] [place] [address] Lauren Amaral MD Screening for lung cancer (Primary Dx); Encounter for immunization; Cervical cancer screening 06/19/2025 Telephone [facility] & P[facility]S [address] [place] [address] Heena Abbasi MD Appointment Request 06/19/2025 Travel 06/18/2025 Telephone [facility] [address] [place] [address] Heena Abbasi MD chart prep 06/13/2025 Orders Only GENERIC EXTERNAL DATA DEPARTMENT Provider, Generic External Data 05/24/2025 Telephone [facility] & PEDS [address] [place] [id number] Heena Abbasi MD 05/23/2025 10:15 AM EDT Office Visit [facility] [address] [facility] [place] [address] Heena Abbasi MD Benign hypertension (Primary Dx); Hypercholesterolemia; Chronic atrial fibrillation (CMS/HCC); Insomnia, unspecified type; Acute bilateral low back pain without sciatica; Encounter for annual wellness visit; Cerebrovascular accident (CVA), unspecified mechanism (CMS/HCC) 05/23/2025 Refill [facility] & PEDS [address] [place] [id number] Heena Abbasi MD 05/23/2025 Travel 05/22/2025 Telephone [facility] PEDS [address] [place] [id number] Heena Abbasi MD Chart Prep 05/16/2025 Orders Only GENERIC EXTERNAL DATA DEPARTMENT Provider, Generic External Data 05/15/2025 Patient Outreach [facility] [address] [place] [address] Heena Abbasi MD Pre-visit Planning (SDOH screening negative and Tobacco screening negative) 05/10/2025 9:00 AM EDT Office Visit [facility] ADULT DENTAL [address] [place] [address] Ravi Neri 05/08/2025 Results Follow-Up [facility] PED[facility] [address] [place] [address] Heena Abbasi MD BI Mammogram Screening Tomosynthesis Bilateral 05/03/2025 10:00 AM EDT Office Visit [facility] ADULT DENTAL [address] [facility] [place] [address] Ravi Neri 04/18/2025 Orders Only GENERIC EXTERNAL DATA DEPARTMENT Provider, Generic External Data 04/03/2025 Refill [facility] & PEDS [address] [place] [address] Heena Abbasi MD Chronic atrial fibrillation ([facility]) 03/21/2025 Orders Only GENERIC EXTERNAL DATA DEPARTMENT Provider, Generic External Data from Last 3 Months Immunizations Immunization Administration Dates Next Due Hep B, adult 11/03/2002,07/25/2001,05/20/2000 Influenza Injectable Quadriv alant Preservative Free IIV4 MDCK 09/15/2021 Influenza injectable quadriv alent IIV4 with preservative 09/27/2019,06/29/2018,06/15/2016,2014 Influenza injectable quadriv alent preservative free 08/06/2023,06/04/2022,08/09/2020 Influenza, IIV3, injectable 07/04/2014,01/25/201 2 Influenza, Split (incl. caio fied surface antigen) 07/07/2013 Influenza, seasonal, injecta ble, preservative free 06/19/2025 Pneumococcal Conjugate PCV 20 06/19/2025 TD (adult), 2 Lf tetanus tox oid, preservative free, adsorbed 07/25/2001 Tdap 11/19/2017 Zoster, Recombinant 06/04/2022 Family History Medical History Relation Name Comments Diabetes Father Heart disease Father Stroke Father Diabetes Mother Heart disease Mother Hypertension Mother Kidney cancer Mother Relation Name Status Comments Father Mother Social History Tobacco Use Types Packs/Day Years [...] Mass Index 30.52 06/19/2025 11:01 AM EDT Plan of Treatment Upcoming Encounters Date Type Department Care Team (Late st Contact Info) Description 06/20/2025 2:00 PM EDT Office Visit [facility] & PEDS [address] [place] [address] 07/09/2025 11:30 AM EDT Clinical Support [facility] [address] [place] [address] 08/06/2025 1:15 PM EST Office Visit [facility] MED & PEDS [address] [place] [address] Lauren Amaral MD [address] [place] [address] Health Maintenance Due Date Last Done Comments CT Colonography 1965 Colonoscopy 1965 FIT 1965 HIV Screening 1965 Sigmoidoscopy 1965 Hepatitis C Screening 02/11/1982 Pap Smear 02/11/1985 Cervical Cancer Screening 02/11/1994 HPV/Cotest 02/11/1994 Zoster Vaccines (2 of 2) 07/30/2022 06/04/2022 RSV Patients and Patients Aged 60 years or older (1 - Risk 60-74 years 1-dose series) 2024 FOBT 01/10/2025 01/11/2024 COVID-19 Vaccine (2024- season) 2025 11/13/2022, 01/02/2022, 02/20/2021, Additional history exists Dental Oral Exam 05/28/2025 11/24/2024, , 07/29/2022 Dental Prophylaxis 05/28/2025 11/24/2024, 0 12/14/2023, 07/29/2022 Dental X-Ray: Bitewings 11/25/2025 11/25/19, 12/14/2023, 07/29/2022 Mammogram 05/03/2026 05/03/2025, 0809/2023, 04/06/2023, Additional history exists SDOH Screening 05/15/2026 05/15/2025 Alcohol/Substance Use Screening 05/23/2026 05/23/2025 Depression Screening 05/23/2026 05/23/2025, 05/23/20 Disability Screening 05/23/2026 05/23/2025 Tobacco Screening 06/19/2026 06/19/2025 Dental X-Ray: Full Mouth 12/14/2026 12/14/2023, 12/2018 Colorectal Cancer Screening 01/10/2027 FIT DNA/Cologuard 01/10/2027 01/11/2024 DTaP/Tdap/Td Vaccines (2 - Td or Tdap) 11/20/2027 11/19/2017, 07/25/2001 Lipid Panel 05/23/2030 05/23/2025, 0504/2024, 02/09/2022, Additional history exists Hepatitis B Vaccines Completed 11/03/2002, 07/25/2001, 05/20/2000 Influenza Vaccine Completed 06/19/2025, , 06/04/2022, Additional history exists Pneumococcal Vaccine: 50+ Years Completed 06/19/2025 HIB Vaccines Aged Out No longer eligi [...] included. Protime 26.0(H) 11.1 - 13.5 sec [facility] 06/13/2025 10:2 0 AM EDT 06/13/2025 10:24 AM EDT us Generic External Data Provider LAB BLOOD ORDERAB LES Final Result [facility] [address] [place] [phone] * (ABNORMAL) ~PT, ~INR - ANTI COAG CLINIC (06/13/2025 10:20 AM EDT) Only the most recent of4 resultswithin the time period is included. Prothrombin Time INR 2.2(H) 0.9 - 1.1 [facility] Comment:METER #: [id number] TERNATIONAL NORMALIZED RATIO (INR) REFERENCE RANGES Reference [...] Provider LAB BLOOD ORDERAB LES Final Result [facility] [address] [place] [phone] * (ABNORMAL) Urinalysis, Complete, with Reflex to Culture (05/23/2025 10:57 AM EDT) Color Urine Yellow [facility] Appearance Urine Clear [facility] PH 6.0 5.0 - 9.0 [facility] Glucose Urine UA Negative Negative mg/dL [facility] Urine Blood Trace(A) Negative [facility] Specific [place] - Urine 1.015 1.005 - 1.025 [facility] Urine Protein Negative Neg-Trace mg/dL [facility] Urine Ketones Negative Negative mg/dL [facility] Nitrite Urine Negative Negative [facility] Leukocyte Esterase Urine Negative Negative [facility] RBC Urine 0-2 0 - 2 /HPF [facility] Urine WBC 0-5 0 - 5 /HPF [facility] Urine Squamous Epithelial Cell 3-5 0 - 2 /HPF [facility] Urine Bacteria Trace None Seen [facility] Hyaline Casts, Urine 0-2 0 - 2 /LPF [facility] Urine 05/23/2025 10:5 7 AM EDT 05/23/2025 1:57 PM EDT Narrative [facility] - 05/23/2025 2:18 PM EDT [id number], Clean Catch Heena Abbasi MD LAB URINE ORDERABLES Final Resul t Performing Organization Address [facility] Co de Phone Number [facility] [address] [place] [phone] * (ABNORMAL) Hepatic Function Panel (05/23/2025 10:52 AM EDT) Bilirubin, Total 0.2 0.0 - 1.0 mg/dL [facility] Bilirubin, Direct <0.2 0.0 - 0.5 mg/dL [facility] Aspartate Amino Transferase 25 5 - 31 U/L [facility] Alanine Aminotransferase 14 0 - 31 U/L [facility] Total Protein 8.3(H) 6.5 - 8.0 g/dL [facility] Albumin Level 4.4 3.5 - 5.0 g/dL [facility] Alkaline Phosphatase 94 39 - 117 U/L [facility] Blood Venous blood specimen / Unknown 05/23/2025 10:52 AM EDT 05/23/2025 1:54 PM EDT Heena Abbasi MD LAB BLOOD ORDERABLES Final Resul t Performing Organization Address City/[facility]/ZIP Co de Phone Number [facility] [address] [place] [phone] * (ABNORMAL) Lipid Panel, Standard (05/23/2025 10:52 AM EDT) Triglycerides 76 <150 mg/dL [facility] Comment:Desirable Triglyceri de: less than 150 mg/dLBorderline High Triglyceride 150-199 mg/dLHigh Triglyceride: 200-499 mg/dLVery High Triglyceride: greater than or equal to 5OO mg/dL Cholesterol 184 <200 mg/dL [facility] Comment:Desirable Cholestero l: less than 200 mg/dLBorderline High Cholesterol: 200-239 mg/dLHigh Cholesterol: greater than 239 mg/dL LDL Cholesterol Calculated 107(H) <100 mg/dL [facility] Comment:Desirable LDL: less than 100 mg/dLNear Optimal/Above Optimal LDL: 110- 129 mg/dLBorderline High LDL: 130-159 mg/dLHigh LDL: 160-189 mg/dLVery High LDL: greater than or equal to 190 mg/dL HDL Cholesterol 62 >40 mg/dL [facility] Comment:Desirable HDL: great er than 40 mg/dL Note: This HDL assay may give artificially low results in patients with liver disease. Blood Venous blood specimen / Unknown 05/23/2025 10:52 AM EDT 05/23/2025 1:54 PM EDT us Heena Abbasi MD LAB BLOOD ORDERABLES Final Resul t [facility] [address] [place] [phone] * (ABNORMAL) Basic Metabolic Panel (05/23/2025 10:52 AM EDT) Sodium 141 135 - 145 mmol/L [facility] Potassium 4.2 3.3 - 5.1 mmol/L [facility] Chloride 108 96 - 108 mmol/L [facility] Carbon Dioxide 25 22 - 29 mmol/L [facility] Anion Gap 12 12 - 20 [facility] Urea Nitrogen (BUN) 17(H) 9 - 16 mg/dL [facility] Creatinine, Serum 0.80 0.5 - 1.4 mg/dL [facility] Estimated Glomerular Filt Rate >60 [facility] Comment:Chronic Kidney Disea se: Estimated GFR < 60 mL/min/1.86w5Qfxcsa Kidney Disease: Estimated GFR < 15 mL/min/1.73m2 Glucose 78 60 - 115 mg/dL [facility] Calcium 8.9 8.4 - 10.2 mg/dL [facility] Blood Venous blood specimen / Unknown 05/23/2025 10:52 AM EDT 05/23/2025 1:54 PM EDT Heena Abbasi MD LAB BLOOD ORDERABLES Final Resul t [facility] [address] [place] [phone] * BI Mammogram Screening Tomosynthesis Bilateral (05/03/2025 9:25 AM EDT) Anatomical Region Laterality Modality Breast Bilateral Mammography 05/03/2025 9:25 AM EDT Narrative 05/08/2025 11:51 AM EDT [address] [place] [address] Mammography Report Signed Patient: Omaira Holly MR#: [id number] : 1965 Acct:[id number] Age/Sex: 60 / F ADM Date: 05/03/25 Loc: HO.MAMMO Attending Dr: Heena Abbasi MD Ordering Physician: Heena Abbasi MD Results: 1Negati ve Date of Service: 05/03/25 Follow Up: 1 Year From [facility] Mammogram Procedure(s): MM tomosynthesis screening BI Accession Number(s): [id number] cc: Heena Abbasi MD EXAMINATION: MM SCREENING [...] in OV> 05/08/25 1148 DD/ 4 TD/TT: 05/03/25 0945 Strategic Accounts Manager: Procedure Note Donotuseinterpreter, Image - 05/08/2025 [facility] [address] [place] [address] Mammography Report Signed Patient: Jose Holly#: [id number] : 1965Acct:[id number] Age/Sex: 60 / FADM Date: 05/03/25 Loc: HO.MAMMO Attending Dr: Heena Abbasi MD Ordering Physician: Heena Abbasi MDResults: 1Negati ve Date of Service: 05/03/25Follow Up: 1 Year From [facility] Mammogram Procedure(s): MM tomosynthesis screening BI Accession Number(s): [id number] cc: Heena Abbasi MD EXAMINATION: MM SCREENING [...] OV> 05/08/25 1148 DD/ 4 TD/TT: 05/03/2545 Strategic Accounts Manager: Heena Abbasi MD IM BI PROCEDURES Final Result * Cologuard?? colon cancer screening (01/11/2024 9:45 AM EDT) Cologuard Result Negative Negative 01/20/20 12:00 PM EDT [employer] (CLIA #:[id number]) Comment: NEGATIVE TEST RESULT. A negative Cologuard [...] Dobson et al, N Engl J Med 2014;370(14):4712-4766) The normal value (reference range) for this assay is negative. COLOGUARD RE-SCREENING RECOMMENDATION: Periodic colorectal cancer screening is an important part of preventive healthcare for asymptomatic individuals at average risk for colorectal cancer. Following a negative Cologuard result, the [place] [employer] and U.S. Multi-Society Task Force screening guidelines recommend a Cologuard re-screening interval of 3 years. References: [place] [employer] Guideline for Colorectal Cancer Screening: https://www.cancer.org/cancer/sgrjd-lsgyfx-noljsn/nhllxcsyo-rtcyymvmk-piktyui/ac s-rec ommendations.html.; Dane COSTELLO, Feroz CR, Lauro MOONEY, Colorectal Cancer Screening: Recommendations for Physicians and Patients from the U.S. Multi-Society Task Force on Colorectal Cancer Screening , Am J Gastroenterology 2017; 112:2422-7353. TEST DESCRIPTION: Composite algorithmic analysis of stool [...] (Mando Sidhu al, N Engl J Med 2014;370(14):7836-0475.) Cologuard may produce a false negative or false positive result (no colorectal cancer or precancerous polyp present at colonoscopy follow up). A negative Cologuard test result does not guarantee the absence of CRC or advanced adenoma (pre-cancer). The current Cologuard screening interval is every 3 years. ([place] [employer] Society and U.S. Multi-Society Task Force). Cologuard performance data in a 10,000 patient pivotal study using colonoscopy as the reference method can be accessed at the following location: www.[employer]/results. Additional description of the Cologuard test process, warnings and precautions can be found at www.StartBullrd.com. Stool specimen (specimen) 01/11/2024 9:45 AM EDT 01/13/2024 10:47 AM EDT us Heena Abbasi MD LAB MOLECULAR DIAGNOSTICS ORDERA BLEIna Final Result [employer] [facility] (CLIA #:[id number]) [place] [address], from Last 3 Months or Most Recently Relevant to Health Maintenance Insurance [place] DENTAL[place] Care Teams Employee'S Representative Relationship Specialty Start Date End Date Heena Abbasi MD [address] [place] [phone] PCP - General Family Medicine 09/05/12 Eli Higuera AuristPayment Collector 03/17/24 Eli Higuera AuristPayment Collector 10/05/24 Eli Higuera AuristPayment Collector 02/22/25
--- OUTSIDE RECORDS SUMMARY | 2025-06-19 16:13 | XMS_ITS | Encounter Summary ---
Author Organization [employer] Address 75 [facility] 7t [place] [address] Care Team Providers Care Icu Rn Name Role Phone Heena Abbasi MD Primary Care Provider [phone] Reason for Visit * Reason Onset Date Comments Referral 05/17/2023 Encounter Details Date Type Department Care Team ([facility] st Contact Info) Description 05/17/2023 Telephone [facility] MED & PEDS [address] [place], [place] [phone] Heena Abbasi MD 505 [place] [address] Referral Social History Tobacco Use Types Packs/Day [...] ([facility]) requesting referral for pt. 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 documented in this encounter Plan of Treatment Upcoming Encounters Date Type Department Care Team (Late st Contact Info) Description 06/20/2025 2:00 PM EDT Office Visit [facility] MED & PEDS [address] [place] [address] 07/09/2025 11:30 AM EDT Clinical Support [facility] [address] [place] [address] 08/06/2025 1:15 PM EST Office Visit [facility] [address] [place] [address] Lauren Amaral MD 505 [place] [address] documented as of this encounter Visit Diagnoses Not on filedocumented in this encounter Care Teams Icu Rn Relationship Specialty Start Date End Date Heena Abbasi MD [address] [place] [address] PCP - General Family Medicine 09/05/12 Eli Higuera Wage And Salary SpecialistOracle Soa Consultant 03/17/24 Eli Higuera Wage And Salary SpecialistOracle Soa Consultant 10/05/24 Eli Higuera Wage And Salary SpecialistOracle Soa Consultant 02/22/25 documented as of this encounter
--- OUTSIDE RECORDS SUMMARY | 2025-06-19 16:13 | XMS_ITS | Encounter Summary ---
Author Organization [employer] Address 75 [facility] 7t [place] [address] Care Team Providers Care Cow Rider Name Role Phone Heena Abbasi MD Primary Care Provider [phone] Reason for Visit * Reason Onset Date Comments Med Refill 06/09/2023 Encounter Details Date Type Department Care Team ([facility] st Contact Info) Description 06/09/2023 Telephone [facility] CHC MED & PEDS [address] [place], [place] [phone] Heena Abbasi MD 505 [place] [address] Med Refill Social History Tobacco Use Types [...] message pt has refills at pharmacy . 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 [facility] had a system error that was corrected and patient will be picking up script later today . * Telephone Encounter - Mari Miller LPN - 06/09/2023 11:54 AM EDT 90 day supply was sent to [facility] #[id number] on 12/29/22 with 3 refills. * Telephone Encounter - Brianne Wade - 06/09/2023 11:27 AM EDT Tc from pt requesting medication refill on gemfibrozil (Lopid) 600 MG tablet to be sent to [facility]/pharmacy #[id number] - [place], [place] - [address] documented in this encounter Plan of Treatment Upcoming Encounters Date Type Department Care Team (Late st Contact Info) Description 06/20/2025 2:00 PM EDT Office Visit [facility] MED & PEDS [address] [place] [address] 07/09/2025 11:30 AM EDT Clinical Support [facility] MED & PED[facility] [address] [place] [address] 08/06/2025 1:15 PM EST Office Visit [facility] MED & [facility]ED[facility] [address] [place] [address] Lauren Amaral MD 505 [place] [address] documented as of this encounter Visit Diagnoses Not on filedocumented in this encounter Care Teams Cow Rider Relationship Specialty Start Date End Date Heena Abbasi MD [address] [place] [address] PCP - General Family Medicine 09/05/12 Eli Higuera Consulting PsychiatristSales Operations Associate 03/17/24 Eli Higuera Consulting PsychiatristSales Operations Associate 10/05/24 Eli Higuera Consulting PsychiatristSales Operations Associate 02/22/25 documented as of this encounter
--- OUTSIDE RECORDS SUMMARY | 2025-06-19 16:13 | XMS_ITS | Encounter Summary ---
Author Organization [employer] Address 75 [facility] 7t [place] [address] Care Team Providers Care Flake Drier Name Role Phone Heena Abbasi MD Primary Care Provider Encounter Details Date Type Department Care Team (Late Contact Info) Description 04/05/2023 Orders Only [facility] MED & PEDS 505 [place] [address] Heena Abbasi MD 505 [place] [address] Social History Tobacco Use Types Packs/Day Years [...] Description 06/20/2025 2:00 PM EDT Office Visit [facility] MED & PEDS 505 [place] [address] 07/09/2025 11:30 AM EDT Clinical Support [facility] MED & PEDS 505 [place] [address] 08/06/2025 1:15 PM EST Office Visit [facility] MED & PEDS [address] [place] [address] Lauren Amaral MD 505 [place] [address] documented as of this encounter Visit Diagnoses Not on filedocumented in this encounter Care Teams Flake Drier Relationship Specialty Start Date End Date Heena Abbasi MD [address] [place] [address] PCP - General Family Medicine 09/05/12 Eli Higuera Warp PickerAutomotive Maintenance Technician 03/17/24 Eli Higuera Warp PickerAutomotive Maintenance Technician 10/05/24 Eli Higuera Warp PickerAutomotive Maintenance Technician 02/22/25 documented as of this encounter
--- OUTSIDE RECORDS SUMMARY | 2025-06-19 16:13 | XMS_ITS | Encounter Summary ---
Author Organization [employer] Address 75 [facility] 7t [place] [address] Care Team Providers Care Fat Pressroom Worker Name Role Phone Heena Abbasi MD Primary Care Provider [phone] Reason for Visit * Reason Onset Date Comments Med Refill 03/30/2023 Encounter Details Date Type Department Care Team ([facility] st Contact Info) Description 03/30/2023 Telephone [facility] CHC MED & PEDS [address] [place], [place] [phone] Heena Abbasi MD 505 [place] [address] Med Refill Social History Tobacco Use Types [...] - 03/31/2023 8:41 AM EDT Managed by [facility] [place] coumadin clinic. Noted INR result of 3.0 [...] 06/20/2025 2:00 PM EDT Office Visit [facility] MED & PEDS [address] [place] [address] 07/09/2025 11:30 AM EDT Clinical Support [facility] MED & PEDS [address] [place] [address] 08/06/2025 1:15 PM EST Office Visit [facility] MED & PEDS [address] [place] [address] Lauren Amaral MD 505 [place] [address] documented as of this encounter Visit Diagnoses Not on filedocumented in this encounter Care Teams Fat Pressroom Worker Relationship Specialty Start Date End Date Heena Abbasi MD [address] [place] [address] PCP - General Family Medicine 09/05/12 Eli Higuera Skip TracerPot Fireman 03/17/24 Eli Higuera Skip TracerPot Fireman 10/05/24 Eli Higuera Skip TracerPot Fireman 02/22/25 documented as of this encounter
--- OUTSIDE RECORDS SUMMARY | 2025-06-19 16:13 | XMS_ITS | Encounter Summary ---
Author Organization [employer] Address 75 [facility] 7t [place] [address] Care Team Providers Care Side Seam Envelope Machine Operator Name Role Phone Heena Abbasi MD Primary Care Provider [phone] Encounter Details Date Type Department Care Team (Late st Contact Info) Description 02/29/2024 Telephone [facility] ADULT DENTAL [address] [place] [address] Perri Noble, SOREN Social History Tobacco Use [...] Description 06/20/2025 2:00 PM EDT Office Visit [facility] MED & PEDS [address] [place] [address] 07/09/2025 11:30 AM EDT Clinical Support [facility] MED & PEDS [address] [place] [address] 08/06/2025 1:15 PM EST Office Visit [facility] MED & PEDS [address] [place] [address] Lauren Amaral MD 505 [place] [address] documented as of this encounter Visit Diagnoses Not on filedocumented in this encounter Additional Health Concerns Assessment Noted Time PHQ-9 Depression Total Score: 5 12/31/19 10:57 AM EDT documented as of this encounter Care Teams Side Seam Envelope Machine Operator Relationship Specialty Start Date End Date Heena Abbasi MD [address] [place] [address] PCP - General Family Medicine 09/05/12 Eli Higuera De Icer Kit AssemblerManager Fine Dining 03/17/24 Eli Higuera De Icer Kit AssemblerManager Fine Dining 10/05/24 Eli Higuera De Icer Kit AssemblerManager Fine Dining 02/22/25 documented as of this encounter
--- OUTSIDE RECORDS SUMMARY | 2025-06-19 16:13 | XMS_ITS | Encounter Summary ---
Author Organization [employer] Address 75 [facility] 7t [place] [address] Care Team Providers Care Automotive Service Technician Name Role Phone Heena Abbasi MD Primary Care Provider [phone] Encounter Details Date Type Department Care Team (Latest Contact Info) Description 06/19/2025 Travel Social History Tobacco Use Types Packs/Day Years Used Date Smoking Tobacco: Former Cigarettes Passive Smoke Exposure: Past Smokeless Tobacco: Never Comments:Cigarette use for 3 7 yrs, started at 13 yrs old & [...] 2:00 PM EDT Office Visit [facility] MED & PEDS 505 [place] [address] 07/09/2025 11:30 AM EDT Clinical Support [facility] & PED[facility] [address] [place] [address] 08/06/2025 1:15 PM EST Office Visit [facility] MED & PED[facility] [address] [place] [address] Lauren Amaral MD 505 [place] [address] documented as of this encounter Visit Diagnoses Not on filedocumented in this encounter Additional Health Concerns Assessment Noted Time PHQ-9 Depression Total Score: 7 05/23/20 25 10:19 AM EDT documented as of this encounter Care Teams Automotive Service Technician Relationship Specialty Start Date End Date Heena Abbasi MD [address] [place] [address] PCP - General Family Medicine 09/05/12 Eli Higuera Surgical OncologistBed Manager 03/17/24 Eli Higuera Surgical OncologistBed Manager 10/05/24 Eli Higuera Surgical OncologistBed Manager 02/22/25 documented as of this encounter
--- OUTSIDE RECORDS SUMMARY | 2025-06-19 16:13 | XMS_ITS | Encounter Summary ---
Author Organization [employer] Address 75 [facility] 7t [place] [address] Care Team Providers Care Animal Caretaker Name Role Phone Heena Abbasi MD Primary Care Provider [phone] Encounter Details Date Type Department Care Team (Late st Contact Info) Description 12/31/2023 Orders Only [facility] CHC MED & PEDS [address] [place], [place] [phone] Heena Abbasi MD 505 [place], [place] [phone] Social History Tobacco Use Types Packs/Day Years [...] doing things Several days 12/31/2023 10:57 AM [place] Feeling down, depressed, or hopeless [...] Description 06/20/2025 2:00 PM EDT Office Visit [facility] MED & PEDS [address] [place] [address] 07/09/2025 11:30 AM EDT Clinical Support [facility] MED & PEDS [address] [place] [address] 08/06/2025 1:15 PM EST Office Visit [facility] MED & PEDS [address] [place] [address] Lauren Amaral MD 505 [place] [address] documented as of this encounter Visit Diagnoses Not on filedocumented in this encounter Additional Health Concerns Assessment Noted Time PHQ-9 Depression Total Score: 5 12/31/19 24 10:57 AM EDT documented as of this encounter Care Teams Animal Caretaker Relationship Specialty Start Date End Date Heena Abbasi MD [address] [place] [address] PCP - General Family Medicine 09/05/12 Eli Higuera College Or University RegistrarSenior Mechanical Project Manager 03/17/24 Eli Higuera College Or University RegistrarSenior Mechanical Project Manager 10/05/24 Eli Higuera College Or University RegistrarSenior Mechanical Project Manager 02/22/25 documented as of this encounter
--- OUTSIDE RECORDS SUMMARY | 2025-06-19 16:13 | XMS_ITS | Encounter Summary ---
Author Organization [employer] Address [address] [facility] 7t [place] [address] Care Team Providers Care Muskrat Trapper Name Role Phone Heena Abbasi MD Primary Care Provider [phone] Reason for Visit * Reason Onset Date Comments Referral 07/29/2023 Encounter Details Date Type Department Care Team ([facility] st Contact Info) Description 07/29/2023 Telephone [facility] MEDICINE [address] [place] [address] Heena Abbasi MD 505 [place], [place] [phone] Referral Social History Tobacco Use Types Packs/Day [...] pt insurance. * Telephone Encounter - Rufino Vick - 07/29/2023 10:42 AM EST Tc from [...] [facility] MED & PEDS [address] [place] [address] 07/09/2025 11:30 AM EDT Clinical Support [facility] MED & PEDS [address] [place] [address] 08/06/2025 1:15 PM EST Office Visit [facility] MED & PEDS [address] [place] [address] Lauren Amaral MD 505 [place] [address] documented as of this encounter Visit Diagnoses Not on filedocumented in this encounter Care Teams Muskrat Trapper Relationship Specialty Start Date End Date Heena Abbasi MD [address] [place] [address] PCP - General Family Medicine 09/05/12 Eli Higuera Liquor Department ManagerCarrier Blower 03/17/24 Eli Higuera Liquor Department ManagerCarrier Blower 10/05/24 Eli Higuera Liquor Department ManagerCarrier Blower 02/22/25 documented as of this encounter
--- OUTSIDE RECORDS SUMMARY | 2025-06-19 16:13 | XMS_ITS | Encounter Summary ---
Author Organization [email or web address] Address 75 [facility] 7t [place] [address] Care Team Providers Care Clinical Business Manager Name Role Phone Heena Abbasi MD Primary Care Provider [phone] Encounter Details Date Type Department Care Team (Latest Contact Info) Description 05/08/2025 Results Follow-Up [facility] CHC MED & PEDS [address] [place], [place] [phone] Heena Abbasi MD [address] [place], [place] [phone] BI Mammogram Screening Tomosynthesis Bilateral Social History [...] 06/20/2025 2:00 PM EDT Office Visit [facility] MED & PEDS [address] [place] [address] 07/09/2025 11:30 AM EDT Clinical Support [facility] MED & PEDS [address] [place] [address] 08/06/2025 1:15 PM EST Office Visit [facility] MED & PEDS [address] [place] [address] Lauren Amaral MD 505 [place] [address] documented as of this encounter Visit Diagnoses Not on filedocumented in this encounter Additional Health Concerns Assessment Noted Time PHQ-9 Depression Total Score: 5 12/31/19 24 10:57 AM EDT documented as of this encounter Care Teams Clinical Business Manager Relationship Specialty Start Date End Date Heena Abbasi MD [address] [place] [address] PCP - General Family Medicine 09/05/12 Eli Higuera Fac EngineerClock Repairer 03/17/24 Eli Higuera Fac EngineerClock Repairer 10/05/24 Eli Higuera Fac EngineerClock Repairer 02/22/25 documented as of this encounter
--- OUTSIDE RECORDS SUMMARY | 2025-06-19 16:13 | XMS_ITS | Encounter Summary ---
Author Organization [employer] Address 75 [facility] 7t [place] [address] Care Team Providers Care Final Inspector Balance Wheel Name Role Phone Heena Abbasi MD Primary Care Provider [phone] Reason for Visit * Reason Onset Date Comments Med Refill 12/30/2022 Encounter Details Date Type Department Care Team ([facility] st Contact Info) Description 12/30/2022 Telephone [facility] MEDICINE [address] [place] [address] Heena Abbasi MD 505 [place], [place] [phone] Med Refill Social History Tobacco Use Types [...] 12/30/2022 12:39 PM EDT Pt managed by [facility] coumadin clinic. Noted INR of 3.0 on [...] [facility] [address] [place] [address] 07/09/2025 11:30 AM EDT Clinical Support [facility] MED & PEDS [address] [place] [address] 08/06/2025 1:15 PM EST Office Visit [facility] MED & PEDS [address] [place] [address] Lauren Amaral MD 505 [place] [address] documented as of this encounter Visit Diagnoses Not on filedocumented in this encounter Care Teams Final Inspector Balance Wheel Relationship Specialty Start Date End Date Heena Abbasi MD [address] [place] [address] PCP - General Family Medicine 09/05/12 Eli Higuera Rn Lactation ConsultantHighway Traffic Control Technician 03/17/24 Eli Higuera Rn Lactation ConsultantHighway Traffic Control Technician 10/05/24 Eli Higuera Rn Lactation ConsultantHighway Traffic Control Technician 02/22/25 documented as of this encounter
--- OUTSIDE RECORDS SUMMARY | 2025-06-19 16:13 | XMS_ITS | Encounter Summary ---
Author Organization [employer] Address 75 [facility] 7t [place] [address] Care Team Providers Care Summer Nanny Name Role Phone Heena Abbasi MD Primary Care Provider [phone] Encounter Details Date Type Department Care Team (Late Contact Info) Description 01/01/2023 Orders Only [facility] MED & PEDS [address] [place] [address] Heena Abbasi MD 505 [place] [address] Muscle spasm Social History Tobacco Use Types [...] [facility] [address] [place] [address] 07/09/2025 11:30 AM EDT Clinical Support [facility] MED & PEDS [address] [place] [address] 08/06/2025 1:15 PM EST Office Visit [facility] MED & PEDS [address] [place] [address] Lauren Amaral MD [address] [place] [address] documented as of this encounter Visit Diagnoses Diagnosis Muscle spasm Spasm of muscle documented in this encounter Care Teams Summer Nanny Relationship Specialty Start Date End Date Heena Abbasi MD [address] [place] [address] PCP - General Family Medicine 09/05/12 Eli Higuera Network Security ArchitectPaying Teller 03/17/24 Eli Higuera Network Security ArchitectPaying Teller 10/05/24 Eli Higuera Network Security ArchitectPaying Teller 02/22/25 documented as of this encounter
--- OUTSIDE RECORDS SUMMARY | 2025-06-19 16:13 | XMS_ITS | Encounter Summary ---
Author Organization [employer] Address 75 [facility] 7t [place] [address] Care Team Providers Care Supervisor Bit And Shank Department Name Role Phone Heena Abbasi MD Primary Care Provider [phone] Encounter Details Date Type Department Care Team (Late Contact Info) Description 12/09/2022 Orders Only [facility] MED & PEDS [address] [place] [address] Heena Abbasi MD [address] [place] [address] Social History Tobacco Use Types Packs/Day Years [...] Visit [facility] MED & PEDS [address] [place] [address] 07/09/2025 11:30 AM EDT Clinical Support [facility] MED & PEDS [address] [place] [address] 08/06/2025 1:15 PM EST Office Visit [facility] MED & PEDS [address] [place] [address] Lauren Amaral MD [address] [place] [address] documented as of this encounter Visit Diagnoses Not on filedocumented in this encounter Care Teams Supervisor Bit And Shank Department Relationship Specialty Start Date End Date Heena Abbasi MD [address] [place] [address] PCP - General Family Medicine 09/05/12 Eli Higuera On Call Pharmacy TechnicianOrder Manager 03/17/24 Eli Higuera On Call Pharmacy TechnicianOrder Manager 10/05/24 Eli Higuera On Call Pharmacy TechnicianOrder Manager 02/22/25 documented as of this encounter
--- OUTSIDE RECORDS SUMMARY | 2025-06-19 16:13 | XMS_ITS | Encounter Summary ---
Author Organization [employer] [facility] Address 75 [facility] 7t [place] [address] Care Team Providers Care Certified Physician'S Assistant Name Role Phone Heena Abbasi MD Primary Care Provider [phone] Encounter Details Date Type Department Care Team (Latest Contact Info) Description 11/21/[address] [facility] CONVERSIONS Dental, Provider, DDS Social History [...] Description 06/20/2025 2:00 PM EDT Office Visit [facility] MED & PEDS [address] [place] [address] 07/09/2025 11:30 AM EDT Clinical Support [facility] MED & PEDS [address] [place] [address] 08/06/2025 1:15 PM EST Office Visit [facility] MED & PEDS [address] [place] [address] Lauren Amaral MD 505 [place] [address] documented as of this encounter Visit Diagnoses Not on filedocumented in this encounter Care Teams Certified Physician'S Assistant Relationship Specialty Start Date End Date Heena Abbasi MD [address] [place] [address] PCP - General Family Medicine 09/05/12 Eli Higuera Senior GamemasterHuman Resources Leader 03/17/24 Eli Higuera Senior GamemasterHuman Resources Leader 10/05/24 Eli Higuera Senior GamemasterHuman Resources Leader 02/22/25 documented as of this encounter
--- OUTSIDE RECORDS SUMMARY | 2025-06-19 16:13 | XMS_ITS | Encounter Summary ---
Author Organization [employer] Address 75 [facility] 7t [place] [address] Care Team Providers Care Compounding Assistant Name Role Phone Heena Abbasi MD Primary Care Provider [phone] Encounter Details Date Type Department Care Team (Late Contact Info) Description 03/05/2023 Telephone [facility] ADULT DENTAL [address] [place], [place] [phone] Anthony Arnold [address] [place] [address] Social History Tobacco Use Types Packs/Day Years [...] AM EDT Patient called in with her MAT MACHINE OPERATOR from her coumadin clinic to report INR number of 3.2. [facility] that number was too high and patient will not be able to be seen. Informed patient to call next week to check schedule for new appt date that will coincide with a new coumadin INR apptdate as well. Patient understood DR documented in this encounter Plan of Treatment Upcoming Encounters Date Type Department Care Team ([facility] Contact Info) Description 06/20/2025 2:00 PM EDT Office Visit [facility] MED & PEDS [address] [place] [address] 07/09/2025 11:30 AM EDT Clinical Support [facility] MED & PEDS [address] [place] [address] 08/06/2025 1:15 PM EST Office Visit [facility] MED & PEDS [address] [place] [address] Lauren Amaral MD 505 [place] [address] documented as of this encounter Visit Diagnoses Not on filedocumented in this encounter Care Teams Compounding Assistant Relationship Specialty Start Date End Date Heena Abbasi MD [address] [place] [address] PCP - General Family Medicine 09/05/12 Eli Higuera Recruitment InternBriquetter Operator 03/17/24 Eli Higuera Recruitment InternBriquetter Operator 10/05/24 Eli Higuera Recruitment InternBriquetter Operator 02/22/25 documented as of this encounter
--- OUTSIDE RECORDS SUMMARY | 2025-06-19 16:13 | XMS_ITS | Encounter Summary ---
Author Organization [employer] Address 75 [facility] 7t [place] [address] Care Team Providers Care Test Engineer Nuclear Equipment Name Role Phone Heena Abbasi MD Primary Care Provider [phone] Reason for Visit * Reason Onset Date Comments Appointment Request 06/19/2025 Encounter Details Date Type Department Care Team ([facility] st Contact Info) Description 06/19/2025 Telephone [facility] CH[facility] MED & PEDS [address] [place], [place] [phone] Heena Abbasi MD [address] [place] [address] Appointment Request Social History Tobacco Use Types Packs/Day Years [...] encounter Miscellaneous Notes * Telephone Encounter - Arianna Gutierrez RN - 06/19/2025 11:41 AM EDT Pt stating that she is experiencing abdominal and lower back pain that has been worsening and muscle relaxer and OTC analgesics are no longer effective. Denies loss of control of bladder bowel. Pt daughter reports ambulating at baseline with assistive device. [facility] appointment offered for 06/20/25. Ptverbalized understanding and agreement to appointment with provider to assess pain. documented in this encounter Plan of Treatment Upcoming Encounters Date Type Department Care Team ([facility] st Contact Info) Description 06/20/2025 2:00 PM EDT Office Visit [facility] MED & PEDS [address] [place] [address] 07/09/2025 11:30 AM EDT Clinical Support [facility] MED & PEDS [address] [place] [address] 08/06/2025 1:15 PM EST Office Visit [facility] MED & PEDS [address] [place] [address] Lauren Amaral MD [address] [place] [address] documented as of this encounter Visit Diagnoses Not on filedocumented in this encounter Additional Health Concerns Assessment Noted Time PHQ-9 Depression Total Score: 7 05/23/20 25 10:19 AM EDT documented as of this encounter Care Teams Test Engineer Nuclear Equipment Relationship Specialty Start Date End Date Heena Abbasi MD [address] [place] [address] PCP - General Family Medicine 09/05/12 Eli Higuera Cost ClerkSlubber Tender 03/17/24 Eli Higuera Cost ClerkSlubber Tender 10/05/24 Eli Higuera Cost ClerkSlubber Tender 02/22/25 documented as of this encounter
--- OUTSIDE RECORDS SUMMARY | 2025-06-19 16:13 | XMS_ITS | Encounter Summary ---
Author Organization [employer] Address 75 [facility] 7t [place] [address] Care Team Providers Care Cv Rn Name Role Phone Heena Abbasi MD Primary Care Provider [phone] Encounter Details Date Type Department Care Team (Late Contact Info) Description 09/10/2022 Orders Only [facility] [address] [place], [place] [phone] Tierra Ashby LPN Social History Tobacco Use [...] Description 06/20/2025 2:00 PM EDT Office Visit [facility] CHC MED & PEDS [address] [place] [address] 07/09/2025 11:30 AM EDT Clinical Support [facility] MED & PEDS [address] [place] [address] 08/06/2025 1:15 PM EST Office Visit [facility] MED & PEDS [address] [place] [address] Lauren Amaral MD [address] [place] [address] documented as of this encounter Visit Diagnoses Not on filedocumented in this encounter Care Teams Cv Rn Relationship Specialty Start Date End Date Heena Abbasi MD [address] [place] [address] PCP - General Family Medicine 09/05/12 Eli Higuera Casting Machine Operator HelperInformation And Referral Director 03/17/24 Eli Higuera Casting Machine Operator HelperInformation And Referral Director 10/05/24 Eli Higuera Casting Machine Operator HelperInformation And Referral Director 02/22/25 documented as of this encounter
== END 2025-06-19 14:54 | disposition home or self-care (01) ==
LOC: HO.LNP 14:53
PROVIDERS: Visit Provider Family Medicine
DX: Z12.4 Encounter for screening for malignant neoplasm of cervix (principal); Z11.51 Encounter for screening for human papillomavirus (HPV)
CPT/HCPCS: 87626; 88175

== ENCOUNTER 2025-06-20 14:50 | Outpatient (REF) | payer MEDICAID, SELFPAY ==
--- OUTSIDE RECORDS SUMMARY | 2025-06-19 10:20 | XMS_ITS | Encounter Summary ---
Author Organization [employer] Address 75 [facility] 7t [place] [address] Care Team Providers Care Pharmaceutical Engineer Name Role Phone Heena Abbasi MD Primary Care Provider [phone] Reason for Referral * Imaging (Routine) - Closed Specialty Diagnoses / Procedures Referred By Naomi clark Referred To Contact Radiology Diagnoses Screening for lung cancer Procedures CT Lung Screening Low dose Lauren Amaral MD 505 [place] [address] Phone: tel: fax: Referral ID Status Reason Start Date Expiration Date Visits Re quested Visits Authorized [id number] Closed 06/19/2025 06/19/2026 1 1 Reason for Visit * Reason Comments Cervical Cancer Screening Encounter Details Date Type Department Care Team (Latest Contact Info) Description 06/19/2025 10:20 AM EDT Procedure Visit [facility] MED & PEDS [address] [place] [address] Lauren Amaral MD 505 [place] [address] Screening for lung cancer (Primary Dx); Encounter for immunization; Cervical cancer screening Social History Tobacco Use Types Packs/Day Years Used Date Smoking Tobacco: Former Cigarettes Passive Smoke Exposure: Past Smokeless Tobacco: Never Tobacco Cessation:Counseling Given: Not Answered Comments:Cigarette use for 37 yrs, started at 13 yrs old & stopped when she was 50 year old. 1PPD for 7 years and then 2 PPD. Alcohol Use Standard Drinks/Week Comments Defer 0 [...] Sign Reading Time Taken Comments Blood Pressure 154/90 06/19/2025 11:18 AM EDT Pulse 78 06/19/2025 11:01 AM EDT Temperature 36.6 C (97.8 F) 06/19/2025 11:01 AM EDT Respiratory Rate 20 06/19/2025 11:01 AM EDT Oxygen Saturation 98% 06/19/2025 11:01 AM EDT Inhaled Oxygen Concentration - - Weight 66 kg (145 lb 6.4 oz) 06/19/2025 11:01 AM EDT Height 147 cm (4' 9.87 ) 06/19/2025 11:01 AM EDT Body Mass Index 30.52 06/19/2025 11:01 AM EDT documented in this encounter Plan of Treatment Upcoming Encounters Date Type Department Care Team (Late st Contact Info) Description 07/09/2025 11:30 AM EDT Clinical Support [facility] MED & PEDS [address] [place] [address] 08/06/2025 1:15 PM EST Office Visit [facility] MED & PEDS [address] [place] [address] Lauren Amaral MD [address] [place] [address] Scheduled Orders Name Type Priority Associated Diagnoses Orde r Schedule CT Lung Screening Low dose Imaging Routine Screening for lung cancer Expected: 06/19/2025, Expires: 06/19/2026 Pap Smear Pathology and Cytology Routine Cervical cancer screening Ordered: 06/19/2025 HPV High Risk with Reflex to Subtypes Lab Routine Cervical cancer screening Ordered: 06/19/2025 documented as of this encounter Visit Diagnoses Diagnosis Screening for lung cancer- Primary Encounter for immunization Cervical cancer screening Screening for malignant neoplasm of the cervix documented in this encounter Additional Health Concerns Assessment Noted Time PHQ-9 Depression Total Score: 7 05/23/20 10:19 AM EDT documented as of this encounter Care Teams Pharmaceutical Engineer Relationship Specialty Start Date End Date Heena Abbasi MD [address] [place] [address] PCP - General Family Medicine 09/05/12 Eli Higuera Vmware AdministratorSpeeder Worker 03/17/24 Eli Higuera Vmware AdministratorSpeeder Worker 10/05/24 Eli Higuera Vmware AdministratorSpeeder Worker 02/22/25 documented as of this encounter
--- OUTSIDE RECORDS SUMMARY | 2025-06-20 14:00 | XMS_ITS | Encounter Summary ---
Author Organization [employer] Address 75 [facility] 7t [place] [address] Care Team Providers Care Vehicle Painter Name Role Phone Heena Abbasi MD Primary Care Provider Reason for Referral * Imaging (STAT) - Authorized Specialty Diagnoses / Procedures Referred By Contemmanuel clark Referred To Contact Radiology Diagnoses Right flank pain Procedures CT Abdomen Pelvis w/o Contrast Hodan Hanna MD [address] [place] [address] Phone: tel: fax: [address] Phone: tel: fax: Referral ID Status Reason Start Date Expiration Date V isits Requested Visits Authorized [id number] Authorized 06/20/2025 06/20/2026 1 1 Reason for Visit * Reason Comments Back Pain Encounter Details Date Type Department Care Team ([facility] st Contact Info) Description 06/20/2025 2:00 PM EDT Office Visit [facility] CH[facility] MED & PEDS [address] [place], [place] [phone] Right flank pain (Primary Dx); Right lower quadrant pain Social History Tobacco Use Types Packs/Day [...] Sign Reading Time Taken Comments Blood Pressure 150/90 06/20/2025 2:14 PM EDT Pulse 78 06/20/2025 2:14 PM EDT Temperature 36.8 C (98.2 F) 06/20/2025 2:14 PM EDT Respiratory Rate 18 06/20/2025 2:14 PM EDT Oxygen Saturation 98% 06/20/2025 2:14 PM EDT Inhaled Oxygen Concentration - - Weight 66.6 kg (146 lb 12.8 oz) 06/20/2025 2:14 PM EDT Height 144.8 cm (4' 9 ) 06/20/2025 2:14 PM EDT Body Mass Index 31.77 06/20/2025 2:14 PM EDT documented in this encounter Plan of Treatment Upcoming Encounters Date Type Department Care Team (Late st Contact Info) Description 07/09/2025 11:30 AM EDT Clinical Support [facility] MED & PEDS [address] [place] [address] 08/06/2025 1:15 PM EST Office Visit [facility] MED & PEDS [address] [place] [address] Lauren Amaral MD [address] [place] [address] Scheduled Orders Name Type Priority Associated Diagnoses Orde r Schedule CBC auto differential Lab Routine Right flank pain Expected: 06/20/2025 (Approximate), Expires: 06/20/2026 Basic Metabolic Panel Lab Routine Right flank pain Expected: 06/20/2025 (Approximate), Expires: 06/20/2026 CT Abdomen Pelvis w/o Contrast Imaging STAT Right flank pain Expected: 06/20/2025, Expires: 06/20/2026 CBC auto differential Lab Routine Right flank pain Expected: 06/20/2025 (Approximate), Expires: 06/20/2026 Urinalysis, Complete, with Reflex to Culture Lab Routine Right flank pain Expected: 06/20/2025 (Approximate), Expires: 06/20/2026 C-reactive Protein Lab Routine Right flank pain Right lower quadrant pain Expected: 06/20/2025 (Approximate), Expires: 06/20/2026 Sed Rate by Modified W[place]gren Lab Routine Right flank pain Right lower quadrant pain Expected: 06/20/2025, Expires: 06/20/2026 documented as of this encounter Visit Diagnoses Diagnosis Right flank pain- Primary Abdominal pain, unspecified site Right lower quadrant pain documented in this encounter Additional Health Concerns Assessment Noted Time PHQ-9 Depression Total Score: 7 05/23/20 25 10:19 AM EDT documented as of this encounter Care Teams Vehicle Painter Relationship Specialty Start Date End Date Heena Abbasi MD [address] [place] [address] PCP - General Family Medicine 09/05/12 Eli Higuera Supervisor Machine SetterFacilities Manager 03/17/24 Eli Higuera Supervisor Machine SetterFacilities Manager 10/05/24 Eli Higuera Supervisor Machine SetterFacilities Manager 02/22/25 documented as of this encounter
--- OUTSIDE RECORDS SUMMARY | 2025-06-20 15:59 | XMS_ITS | Encounter Summary ---
Author Organization [employer] Address 75 [facility] 7t [place] [address] Care Team Providers Care Cover Marker Name Role Phone Heena Abbasi MD Primary Care Provider [phone] Encounter Details Date Type Department Care Team (Late Contact Info) Description 03/05/2023 Telephone [facility]AL [address] [place], [place] [phone] Anthony Arnold [address] [place] [address] Social History Tobacco Use Types Packs/Day Years [...] AM EDT Patient called in with her BRASS MOLDER HELPER from her coumadin clinic to [id number] and patient will not be able to be seen. Informed patient to call next week to check schedule for new appt date that will coincide with a new coumadin INR apptdate as well. Patient understood DR documented in this encounter Plan of Treatment Upcoming Encounters Date Type Department [facility] Team ([facility]) Description 07/09/2025 11:30 AM EDT Clinical Support [facility] MED & PEDS [address] [place] [address] 08/06/2025 1:15 PM EST Office Visit [facility] CHC MED & PEDS [address] [place], [place] [phone] Lauren Amaral MD [address] [place] [address] documented as of this encounter Visit Diagnoses Not on filedocumented in this encounter Care Teams Cover Marker Relationship Specialty Start Date End Date Heena Abbasi MD [address] [place] [address] PCP - General Family Medicine 09/05/12 Eli Higuera Hub BanderBeverage Distiller 03/17/24 Eli Higuera Hub BanderBeverage Distiller 10/05/24 Eli Higuera Hub BanderBeverage Distiller 02/22/25 documented as of this encounter
--- OUTSIDE RECORDS SUMMARY | 2025-06-20 15:59 | XMS_ITS | Encounter Summary ---
Author Organization [email or web address] Address 75 [facility] 7t [place] [address] Care Team Providers Care Turntable Worker Name Role Phone Heena Abbasi MD Primary Care Provider [phone] Reason for Visit * Reason Onset Date Comments Referral 07/29/2023 Encounter Details Date Type Department Care Team ([facility] st Contact Info) Description 07/29/2023 Telephone [facility] [address] [place] [address] Heena Abbasi MD [address] [place], [place] [phone] Referral Social History Tobacco Use Types Packs/Day [...] Description 07/09/2025 11:30 AM EDT Clinical Support [facility] MED & PEDS [address] [place] [address] 08/06/2025 1:15 PM EST Office Visit [facility] MED & PEDS [address] [place] [address] Lauren Amaral MD [address] [place] [address] documented as of this encounter Visit Diagnoses Not on filedocumented in this encounter Care Teams Turntable Worker Relationship Specialty Start Date End Date Heena Abbasi MD [address] [place] [address] PCP - General Family Medicine 09/05/12 Eli Higuera Canceling And Cutting Control ClerkCrm Functional Analyst 03/17/24 Eli Higuera Canceling And Cutting Control ClerkCrm Functional Analyst 10/05/24 Eli Higuera Canceling And Cutting Control ClerkCrm Functional Analyst 02/22/25 documented as of this encounter
--- OUTSIDE RECORDS SUMMARY | 2025-06-20 15:59 | XMS_ITS | Encounter Summary ---
Author Organization [employer] Address 75 [facility] 7t [place] [address] Care Team Providers Care Detention Sergeant Name Role Phone Heena Abbasi MD Primary Care Provider Reason for Visit * Reason Onset Date Comments Med Refill 06/09/2023 Encounter Details Date Type Department Care Team ([facility] st Contact Info) Description 06/09/2023 Telephone [facility] CHC MED & PEDS [address] [place], [place] [phone] Heena Abbasi MD [address] [place] [address] Med Refill Social History Tobacco Use Types [...] message pt has refills at pharmacy . Lead Based Paint Technician contacted pharmacy to confirm . [facility] had a system error that was corrected and patient will be picking up script later today . * Telephone Encounter - Mari Miller LPN - 06/09/2023 11:54 AM EDT 90 day supply was sent to [facility] #[id number] on 12/29/22 with 3 refills. * Telephone Encounter - Brianne Wade - 06/09/2023 11:27 AM EDT Tc from pt requesting medication refill on gemfibrozil (Lopid) 600 MG tablet to be sent to [facility]/pharmacy #[id number] - [place], [place] - [address] documented in this encounter Plan of Treatment Upcoming Encounters Date Type Department Care Team (Late st Contact Info) Description 07/09/2025 11:30 AM EDT Clinical Support [facility] MED & PEDS [address] [place] [address] 08/06/2025 1:15 PM EST Office Visit [facility] MED & PEDS [address] [place] [address] Lauren Amaral MD [address] [place] [address] documented as of this encounter Visit Diagnoses Not on filedocumented in this encounter Care Teams Detention Sergeant Relationship Specialty Start Date End Date Heena Abbasi MD [address] [place] [address] PCP - General Family Medicine 09/05/12 Eli Higuera Snout PullerStud Dairy Cattle Farmer 03/17/24 Eli Higuera Snout PullerStud Dairy Cattle Farmer 10/05/24 Eli Higuera Snout PullerStud Dairy Cattle Farmer 02/22/25 documented as of this encounter
--- OUTSIDE RECORDS SUMMARY | 2025-06-20 15:59 | XMS_ITS | Encounter Summary ---
Author Organization [employer] [facility] Address 75 [facility] 7t [place] [address] Care Team Providers Care Installer Technician Name Role Phone Heena Abbasi MD Primary Care Provider [phone] Encounter Details Date Type Department Care Team (Late Contact Info) Description 09/10/2022 Orders Only [facility] CL[facility] [address] [place], [place] [phone] Tierra Ashby LPN Social History Tobacco Use [...] [facility] [address] [place] [address] 08/06/2025 1:15 PM EST Office Visit [facility] MED & PEDS [address] [place] [address] Lauren Amaral MD [address] [place] [address] documented as of this encounter Visit Diagnoses Not on filedocumented in this encounter Care Teams Installer Technician Relationship Specialty Start Date End Date Heena Abbasi MD [address] [place] [address] PCP - General Family Medicine 09/05/12 Eli Higuera Tree Loader MeatPractical Nursing Teacher 03/17/24 Eli Higuera Tree Loader MeatPractical Nursing Teacher 10/05/24 Eli Higuera Tree Loader MeatPractical Nursing Teacher 02/22/25 documented as of this encounter
--- OUTSIDE RECORDS SUMMARY | 2025-06-20 15:59 | XMS_ITS | Encounter Summary ---
Author Organization [employer] [facility] Address 75 [facility] 7t [place] [address] Care Team Providers Care Ground Operations Supervisor Name Role Phone Heena Abbasi MD Primary Care Provider [phone] Encounter Details Date Type Department Care Team (Latest Contact Info) Description 07/29/2022 Abstract [facility] CONVERSIONS Dental, Provider, DDS Social History [...] Upcoming Encounters Date Type Department Care Team ( st Contact Info) Description 07/09/2025 11:30 AM EDT Clinical Support [facility] MED & PEDS [address] [place] [address] 08/06/2025 1:15 PM EST Office Visit [facility] MED & PEDS [address] [place] [address] Lauren Amaral MD [address] [place] [address] documented as of this encounter Visit Diagnoses Not on filedocumented in this encounter Care Teams Ground Operations Supervisor Relationship Specialty Start Date End Date Heena Abbasi MD [address] [place] [address] PCP - General Family Medicine 09/05/12 Eli Higuera Aed TrainerStructural Mill Supervisor 03/17/24 Eli Higuera Aed TrainerStructural Mill Supervisor 10/05/24 Eli Higuera Aed TrainerStructural Mill Supervisor 02/22/25 documented as of this encounter
--- OUTSIDE RECORDS SUMMARY | 2025-06-20 15:59 | XMS_ITS | Encounter Summary ---
Author Organization [employer] Address 75 [facility] 7t [place] [address] Care Team Providers Care Homemaking Rehabilitation Consultant Name Role Phone Heena Abbasi MD Primary Care Provider Encounter Details Date Type Department Care Team (Late st Contact Info) Description 12/31/2023 Orders Only [facility] CHC MED & PEDS [address] [place], [place] [phone] Heena Abbasi MD [address] [place], [place] [phone] Social History Tobacco Use Types Packs/Day Years [...] Score 2 12/31/2023 10:57 AM FERNANDOT Vee Daigel [place] * If you checked off any [...] 07/09/2025 11:30 AM EDT Clinical Support [facility] MED & PEDS [address] [place] [address] 08/06/2025 1:15 PM EST Office Visit [facility] & PEDS [address] [place] [address] Lauren Amaral MD [address] [place] [address] documented as of this encounter Visit Diagnoses Not on filedocumented in this encounter Additional Health Concerns Assessment Noted Time PHQ-9 Depression Total Score: 5 12/31/19 24 10:57 AM EDT documented as of this encounter Care Teams Homemaking Rehabilitation Consultant Relationship Specialty Start Date End Date Heena Abbasi MD [address] [place] [address] PCP - General Family Medicine 09/05/12 Eli Higuera Programmer Operator Numerical ControlSorter Pricer 03/17/24 Eli Higuera Programmer Operator Numerical ControlSorter Pricer 10/05/24 Eli Higuera Programmer Operator Numerical ControlSorter Pricer 02/22/25 documented as of this encounter
--- OUTSIDE RECORDS SUMMARY | 2025-06-20 15:59 | XMS_ITS | Encounter Summary ---
Author Organization [facility] Address 75 [facility] 7t [place] [address] Care Team Providers Care Raw Stock Machine Feeder Name Role Phone Heena Abbasi MD Primary Care Provider [phone] Encounter Details Date Type Department Care Team (Latest Contact Info) Description 11/21/2018 Abstract [facility] CONVERSIONS Dental, Provider, DDS Social History [...] Description 07/09/2025 11:30 AM EDT Clinical Support [facility] MED & PEDS [address] [place] [address] 08/06/2025 1:15 PM EST Office Visit [facility] MED & PEDS [address] [place] [address] Lauren Amaral MD [address] [place] [address] documented as of this encounter Visit Diagnoses Not on filedocumented in this encounter Care Teams Raw Stock Machine Feeder Relationship Specialty Start Date End Date Heena Abbasi MD [address] [place] [address] PCP - General Family Medicine 09/05/12 Eli Higuera Escort BlindHi Teacher 03/17/24 Eli Higuera Escort BlindHi Teacher 10/05/24 Eli Higuera Escort BlindHi Teacher 02/22/25 documented as of this encounter
--- OUTSIDE RECORDS SUMMARY | 2025-06-20 15:59 | XMS_ITS | Clinical Summary ---
Author Organization [employer] Address [address] [facility] 7t [place] [address] Care Team Providers Care Grout Worker Name Role Phone Heena Abbasi MD Primary Care Provider [phone] Allergies No known active allergies Medications Calcium [...] ELIO TABLETA TODOS LOS SAGE EN LA CONOVERANA 30 tablet 2 024 Active traZODone (Desyrel) [...] AT BEDTIME NEEDED FOR DRY EYES Active acetaminophen (Tylenol Extra Strength) 500 MG tabletIndicatio ns:Right flank pain,Right lower quadrant pain Take 2 tablets (1,000 mg) by mouth every 8 (eight) hours if needed for mild pain for up to 10 days. 30 tablet 025 2024 Active amoxicillin (Amoxil) 500 MG capsule Please [...] Gentle stretching Short course of flexeril, I rehabilitation services counselor about side effect somnolence Acetaminophen 1300mg [...] Encounters Date Type Department Care Team Description 06/20/2025 2:00 PM EDT Office Visit [facility] MED & PEDS [address] [place] [address] Right flank pain (Primary Dx); Right lower quadrant pain 06/20/2025 Travel 06/19/2025 10:20 AM EDT Procedure Visit [facility] [address] [place] [address] Lauren Amaral MD Screening for lung cancer (Primary Dx); Encounter for immunization; Cervical cancer screening 06/19/2025 Telephone [facility] MED & PED[facility] [address] [place] [address] Heena Abbasi MD Appointment Request 06/19/2025 Travel 06/18/2025 Telephone [facility] MED [facility]ED[facility] [address] [place] [address] Heena Abbasi MD chart prep 06/13/2025 Orders Only GENERIC EXTERNAL DATA DEPARTMENT Provider, Generic External Data 05/24/2025 Telephone [facility] MED [facility] PED[facility] [address] [place] [address] Heena Abbasi MD 05/23/2025 10:15 AM EDT Office Visit [facility] MED [facility] 505 [place] [address] Heena Abbasi MD Benign hypertension (Primary Dx); Hypercholesterolemia; Chronic atrial fibrillation (CMS/HCC); Insomnia, unspecified type; Acute bilateral low back pain without sciatica; Encounter for annual wellness visit; Cerebrovascular accident (CVA), unspecified mechanism (CMS/HCC) 05/23/2025 Refill [facility] [address] [place] [address] Heena Abbasi MD 05/23/2025 Travel 05/22/2025 Telephone [facility] [address] [place] [address] Heena Abbasi MD Chart Prep 05/16/2025 Orders Only GENERIC EXTERNAL DATA DEPARTMENT Provider, Generic External Data 05/15/2025 Patient Outreach [facility] MEDICINE [address] [place] [address] Heena Abbasi MD Pre-visit Planning (SDOH screening negative and Tobacco screening negative) 05/10/2025 9:00 AM EDT Office Visit [facility] ADULT DENTAL [address] [place] [address] Ravi Neri 05/08/2025 Results Follow-Up [facility] [address] [place] [address] Heena Abbasi MD BI Mammogram Screening Tomosynthesis Bilateral 05/03/2025 10:00 AM EDT Office Visit [facility] ADULT DENTAL [address] [place] [address] Ravi Neri 04/18/2025 Orders Only GENERIC EXTERNAL DATA DEPARTMENT Provider, Generic External Data 04/03/2025 Refill [facility]ED[facility] [address] [place] [address] Heena Abbasi MD Chronic atrial fibrillation ([facility]/HCC) 03/21/2025 Orders Only GENERIC EXTERNAL [...] your housing situation today? I have phyllis sing 05/15/[address] you li [...] Mass Index 31.77 06/20/2025 2:14 PM EDT Plan of Treatment Upcoming Encounters Date Type Department Care Team (Late st Contact Info) Description 07/09/2025 11:30 AM EDT Clinical Support [facility] [address] [place] [address] 08/06/2025 1:15 PM EST Office Visit [facility] MED [facility] PED[facility] [address] [place] [address] Lauren Amaral MD [address] [place] [address] Health Maintenance Due Date Last Done Comments CT Colonography 1965 Colonoscopy 1965 FIT 1965 HIV Screening 1965 Sigmoidoscopy 1965 Hepatitis C Screening 02/11/1982 Pap Smear 02/11/1985 Cervical Cancer Screening 02/11/1994 HPV/Cotest 02/11/1994 Zoster Vaccines (2 of 2) 07/30/2022 06/04/2022 RSV Patients and Patients Aged 60 years or older (1 - Risk 60-74 years 1-dose series) 2024 FOBT 01/10/2025 01/11/2024 COVID-19 Vaccine ( season) 2025 11/13/2022, 01/02/2022, 02/20/2021, Additional history exists Dental Oral Exam 05/28/2025 11/24/2024, , 07/29/2022 Dental Prophylaxis 05/28/2025 11/24/2024, 0 12/14/2023, 07/29/2022 Dental X-Ray: Bitewings 11/25/2025 11/25/19, 12/14/2023, 07/29/2022 Mammogram 05/03/2026 05/03/2025, 08/0 09/2023, 04/06/2023, Additional history exists SDOH Screening 05/15/2026 05/15/2025 Alcohol/Substance Use Screening 05/23/2026 05/23/2025 Depression Screening 05/23/2026 05/23/2025, 05/23/20 25 Disability Screening 05/23/2026 05/23/2025 Tobacco Screening 06/20/2026 06/20/2025 Dental X-Ray: Full Mouth 12/14/2026 12/14/2023, 03/12/2018 Colorectal Cancer Screening 01/10/2027 FIT DNA/Cologuard 01/10/2027 [...] included. Protime 26.0(H) 11.1 - 13.5 sec [facility] 06/13/2025 10:2 0 AM EDT 06/13/2025 10:24 AM EDT us Generic External Data Provider LAB BLOOD ORDERAB LES Final Result Performing Organization Address [facility] Co de Phone Number [facility] [address] [place] [address] [phone] * (ABNORMAL) ~PT, ~INR - ANTI COAG CLINIC (06/13/2025 10:20 AM EDT) Only the most recent of4 resultswithin the time period is included. Prothrombin Time INR 2.2(H) 0.9 - 1.1 [facility] Comment:METER #: [id number] TERNATIONAL NORMALIZED RATIO (INR) REFERENCE RANGES Reference [...] 0 AM EDT 06/13/2025 10:24 AM EDT Generic External Data Provider LAB BLOOD ORDERAB LES Final Result Performing Organization Address [facility] Co de Phone Number [facility] [address] [place] [phone] * (ABNORMAL) Urinalysis, Complete, with Reflex to Culture (05/23/2025 10:57 AM EDT) Color Urine Yellow [facility] Appearance Urine Clear [facility] PH 6.0 5.0 - 9.0 [facility] Glucose Urine UA Negative Negative mg/dL [facility] Urine Blood Trace(A) Negative [facility] Specific [place] - Urine 1.015 1.005 - 1.025 [facility] Urine Protein Negative Neg-Trace mg/dL [facility] Urine Ketones Negative Negative mg/dL [facility] Nitrite Urine Negative Negative [facility] Leukocyte Esterase Urine Negative Negative [facility] RBC Urine 0-2 0 - 2 /HPF [facility] Urine WBC 0-5 0 - 5 /HPF [facility] Urine Squamous Epithelial Cell 3-5 0 - 2 /HPF [facility] Urine Bacteria Trace None Seen [facility] Hyaline Casts, Urine 0-2 0 - 2 /LPF [facility] Urine 05/23/2025 10:5 7 AM EDT 05/23/2025 1:57 PM EDT Narrative [facility] - 05/23/2025 2:18 PM EDT [id number], Clean Catch Heena Abbasi MD LAB URINE ORDERABLES Final Resul t Performing Organization Address [facility] Co de Phone Number [facility] [address] [place] [phone] * (ABNORMAL) Hepatic Function Panel (05/23/2025 10:52 AM EDT) Bilirubin, Total 0.2 0.0 - 1.0 mg/dL [facility] Bilirubin, Direct <0.2 0.0 - 0.5 mg/dL [facility] Aspartate Amino Transferase 25 5 - 31 U/L [facility] Alanine Aminotransferase 14 0 - 31 U/L [facility] Total Protein 8.3(H) 6.5 - 8.0 g/dL [facility] Albumin Level 4.4 3.5 - 5.0 g/dL [facility] Alkaline Phosphatase 94 39 - 117 U/L [facility] Blood Venous blood specimen / Unknown 05/23/2025 10:52 AM EDT 05/23/2025 1:54 PM EDT Heena Abbasi MD LAB BLOOD ORDERABLES Final Resul t Performing Organization Address [facility] Co de Phone Number [facility] [address] [place] [phone] * (ABNORMAL) Lipid Panel, Standard (05/23/2025 10:52 AM EDT) Triglycerides 76 <150 mg/dL [facility] Comment:Desirable Triglyceri de: less than 150 mg/dLBorderline High Triglyceride 150-199 mg/dLHigh Triglyceride: 200-499 mg/dLVery High Triglyceride: greater than or equal to 5OO mg/dL Cholesterol 184 <200 mg/dL [facility] Comment:Desirable Cholestero l: less than 200 mg/dLBorderline High Cholesterol: 200-239 mg/dLHigh Cholesterol: greater than 239 mg/dL LDL Cholesterol Calculated 107(H) <100 mg/dL [facility] Comment:Desirable LDL: less than 100 mg/dLNear Optimal/Above Optimal LDL: 110- 129 mg/dLBorderline High LDL: 130-159 mg/dLHigh LDL: 160-189 mg/dLVery High LDL: greater than or equal to 190 mg/dL HDL Cholesterol 62 >40 mg/dL [facility] Comment:Desirable HDL: great er than 40 mg/dL Note: This HDL assay may give artificially low results in patients with liver disease. Blood Venous blood specimen / Unknown 05/23/2025 10:52 AM EDT 05/23/2025 1:54 PM EDT us Heena Abbasi MD LAB BLOOD ORDERABLES Final Resul t [facility] [address] [place] [phone] * (ABNORMAL) Basic Metabolic Panel (05/23/2025 10:52 AM EDT) Sodium 141 135 - 145 mmol/L [facility] Potassium 4.2 3.3 - 5.1 mmol/L [facility] Chloride 108 96 - 108 mmol/L [facility] Carbon Dioxide 25 22 - 29 mmol/L [facility] Anion Gap 12 12 - 20 [facility] Urea Nitrogen (BUN) 17(H) 9 - 16 mg/dL [facility] Creatinine, Serum 0.80 0.5 - 1.4 mg/dL [facility] Estimated Glomerular Filt Rate >60 [facility] Comment:Chronic Kidney Disea se: Estimated GFR < 60 mL/min/1.90t9Eywino Kidney Disease: Estimated GFR < 15 mL/min/1.73m2 Glucose 78 60 - 115 mg/dL [facility] Calcium 8.9 8.4 - 10.2 mg/dL [facility] Blood Venous blood specimen / Unknown 05/23/2025 10:52 AM EDT 05/23/2025 1:54 PM EDT us Heena Abbasi MD LAB BLOOD ORDERABLES Final Resul t [facility] [address] [place] [phone] * BI Mammogram Screening Tomosynthesis Bilateral (05/03/2025 9:25 AM EDT) Anatomical Region Laterality Modality Breast Bilateral Mammography 05/03/2025 9:25 AM EDT Narrative 05/08/2025 11:51 AM EDT [facility] [address] [place] [address] Mammography Report Signed Patient: Omaira Holly MR#: [id number] : 1965 Acct:[id number] Age/Sex: 60 / F ADM Date: 05/03/25 Loc: MAMMO Attending Dr: Heena Abbasi MD Ordering Physician: Heena Abbasi MD Results: 1Negati ve Date of Service: 05/03/25 Follow Up: 1 Year From [facility] ina Mammogram Procedure(s): MM tomosynthesis screening BI Accession Number(s): [id number] cc: Heena Abbasi MD EXAMINATION: MM SCREENING [...] OV> 05/08/25 1148 DD/ 4 TD/TT: 05/03/2545 Job Spotter: Procedure Note Donotuseinterpreter, Image - 05/08/2025 [facility] [address] [place] [address] Mammography Report Signed Patient: Omaira HollyMR#: [id number] : 1965Acct:[id number] Age/Sex: 60 / FADM Date: 05/03/25 Loc: HO.MAMMO Attending Dr: Heena Abbasi MD Ordering Physician: Heena Abbasi MDResults: 1Negati ve Date of Service: 05/03/25Follow Up: 1 Year From Orig ina Mammogram Procedure(s): MM tomosynthesis screening BI Accession Number(s): [id number] cc: Heena Abbasi MD EXAMINATION: MM SCREENING [...] in OV> 05/08/25 1148 DD/ 0925 TD/TT: 05/03/25 0945 Job Spotter: Heena Abbasi MD IM BI PROCEDURES Final Result * Cologuard?? colon cancer screening (01/11/2024 9:45 AM EDT) Cologuard Result Negative Negative 01/20/20 12:00 PM EDT [facility] (CLIA #:[id number]) Comment: NEGATIVE TEST RESULT. A negative Cologuard [...] Dobson et al, N Engl J Med 2014;370(14):6901-2966) The normal value (reference range) for this assay is negative. COLOGUARD RE-SCREENING RECOMMENDATION: Periodic colorectal cancer screening is an important part of preventive healthcare for asymptomatic individuals at average risk for colorectal cancer. Following a negative Cologuard result, the [place] [employer] Society and U.S. Multi-Society Task Force screening guidelines recommend a Cologuard re-screening interval of 3 years. References: [place] [employer] Guideline for Colorectal Cancer Screening: https://www.cancer.org/cancer/wstod-anotkm-qgkfvc/kdlyehbls-opmzzvqtv-vfssyep/ac s-rec ommendations.html.; Dane COSTELLO, Feroz GALE, Lauro MOONEY, Colorectal Cancer Screening: Recommendations for Physicians and Patients from the U.S. Multi-Society Task Force on Colorectal Cancer Screening , Am J Gastroenterology 2017; 112:4743-3215. TEST DESCRIPTION: Composite algorithmic analysis of stool [...] Jones. et al, N Engl J Med 2014;370(14):0209-0456.) Cologuard may produce a false negative or false positive result (no colorectal cancer or precancerous polyp present at colonoscopy follow up). A negative Cologuard test result does not guarantee the absence of CRC or advanced adenoma (pre-cancer). The current Cologuard screening interval is every 3 years. ([place] [employer] Society and U.S. Multi-Society Task Force). Cologuard performance data in a 10,000 patient pivotal study using colonoscopy as the reference method can be accessed at the following location: www.BetterYou/results. Additional description of the Cologuard test process, warnings and precautions can be found at www.cologuard.com. Stool specimen (specimen) 01/11/2024 9:45 AM EDT 01/13/2024 10:47 AM EDT us Heena Abbasi MD LAB MOLECULAR DIAGNOSTICS ORDERA BLES Final Result [facility] (CLIA #:[id number]) [place] [place] [place] [address], from Last 3 Months or Most Recently Relevant to Health Maintenance Insurance C3 DENTAL-[facility] MEDICAID STAND ADULT DENTAL-[facility] MEDICAID STAND ADULT Care Teams Grout Worker Relationship Specialty Start Date End Date Heena Abbasi MD [address] [place] [phone] PCP - General Family Medicine 09/05/12 Eli Higuera Software Implementation SpecialistHistorical Manuscripts Curator 03/17/24 Eli Higuera Software Implementation SpecialistHistorical Manuscripts Curator 10/05/24 Eli Higuera Software Implementation SpecialistHistorical Manuscripts Curator 02/22/25
--- OUTSIDE RECORDS SUMMARY | 2025-06-20 15:59 | XMS_ITS | Encounter Summary ---
Author Organization [employer] Address [address] [facility] 7t [place] [address] Care Team Providers Care Supervisor Pumping Station Name Role Phone Heena Abbasi MD Primary Care Provider [phone] Reason for Visit * Reason Onset Date Comments Med Refill 12/30/2022 Encounter Details Date Type Department Care Team ([facility] st Contact Info) Description 12/30/2022 Telephone [facility] MEDICINE [address] [place] [address] Heena Abbasi MD [address] [place], [place] [phone] Med Refill Social History Tobacco Use Types [...] 12/30/2022 12:39 PM EDT Pt managed by [facility] coumadin clinic. Noted INR [...] 11:30 AM EDT Clinical Support [facility] MED & PEDS [address] [place] [address] 08/06/2025 1:15 PM EST Office Visit [facility] MED & PEDS [address] [place] [address] Lauren Amaral MD [address] [place] [address] documented as of this encounter Visit Diagnoses Not on filedocumented in this encounter Care Teams Supervisor Pumping Station Relationship Specialty Start Date End Date Heena Abbasi MD [address] [place] [phone] PCP - General Family Medicine 09/05/12 Eli Higuera Tool StraightenerTransfer Knitter 03/17/24 Eli Higuera Tool StraightenerTransfer Knitter 10/05/24 Eli Higuera Tool StraightenerTransfer Knitter 02/22/25 documented as of this encounter
--- OUTSIDE RECORDS SUMMARY | 2025-06-20 15:59 | XMS_ITS | Encounter Summary ---
Author Organization [employer] Address [address] [facility] 7t [place] [address] Care Team Providers Care Library Assistant Name Role Phone Heena Abbasi MD Primary Care Provider [phone] Reason for Visit * Reason Onset Date Comments Med Refill 01/31/2025 Encounter Details Date Type Department Care Team ([facility] st Contact Info) Description 01/31/2025 Telephone [facility] MEDICINE [address] [place] [address] Heena Abbasi MD [address] [place], [place] [phone] Med Refill Social History Tobacco Use Types [...] 10:42 AM EDT Medication was sent to [facility] #[id number] on 11/14/24 #90 with 1 refill. * Telephone Encounter - Jeannie Jaimes - 01/31/2025 10:28 AM EDT TC from pt requesting medication refill. Medications needing refill : pantoprazole (ProtoNix) 20 MG EC tablet To be sent to: [facility]/pharmacy #[id number] - [place], [place] - [address] documented in this encounter Plan of Treatment Upcoming Encounters Date Type Department Care Team (Late st Contact Info) Description 07/09/2025 11:30 AM EDT Clinical Support [facility] MED & PEDS [address] [place] [address] 08/06/2025 1:15 PM EST Office Visit [facility] MED & PEDS [address] [place] [address] Lauren Amaral MD [address] [place] [address] documented as of this encounter Visit Diagnoses Not on filedocumented in this encounter Additional Health Concerns Assessment Noted Time PHQ-9 Depression Total Score: 5 04/12/20 24 10:57 AM EDT documented as of this encounter Care Teams Library Assistant Relationship Specialty Start Date End Date Heena Abbasi MD [address] [place] [phone] PCP - General Family Medicine 09/05/12 Eli Higuera Sales Ledger ClerkFlight Attendant Ramp 03/17/24 Eli Higuera Sales Ledger ClerkFlight Attendant Ramp 10/05/24 Eli Higuera Sales Ledger ClerkFlight Attendant Ramp 02/22/25 documented as of this encounter
--- OUTSIDE RECORDS SUMMARY | 2025-06-20 15:59 | XMS_ITS | Encounter Summary ---
Author Organization [employer] Address [address] [facility] 7t [place] [address] Care Team Providers Care Motorcycle Police Name Role Phone Heena Abbasi MD Primary Care Provider [phone] Encounter Details Date Type Department Care Team [...] Description 07/09/2025 11:30 AM EDT Clinical Support [facility] MED & PEDS [address] [place] [address] 08/06/2025 1:15 PM EST Office Visit [facility] [address] [place] [address] Lauren Amaral MD [address] [place] [address] documented as of this encounter Visit Diagnoses Not on filedocumented in this encounter Additional Health Concerns Assessment Noted Time PHQ-9 Depression Total Score: 7 05/23/20 10:19 AM EDT documented as of this encounter Care Teams Motorcycle Police Relationship Specialty Start Date End Date Heena Abbasi MD [address] [place] [address] PCP - General Family Medicine 09/05/12 Eli Higuera Insurance Risk AnalystWell Logger 03/17/24 Eli Higuera Insurance Risk AnalystWell Logger 10/05/24 Eli Higuera Insurance Risk AnalystWell Logger 02/22/25 documented as of this encounter
--- OUTSIDE RECORDS SUMMARY | 2025-06-20 15:59 | XMS_ITS | Encounter Summary ---
Author Organization [employer] Address [address] [facility] 7t [place] [address] Care Team Providers Care Meter Installer And Remover Name Role Phone Heena Abbasi MD Primary Care Provider [phone] Reason for Visit * Reason Onset Date Comments chart prep 06/18/2025 Encounter Details Date Type Department Care Team ([facility] st Contact Info) Description 06/18/[address] [facility] MED & PEDS [address] [place], [place] [phone] Heena Abbasi MD [address] [place] [address] chart prep Social History Tobacco Use Types [...] Upcoming Encounters Date Type Department Care Team ([facility] st Contact Info) Description 07/09/2025 11:30 AM EDT Clinical Support [facility] MED & PEDS [address] [place] [address] 08/06/2025 1:15 PM EST Office Visit [facility] MED & PEDS [address] [place] [address] Lauren Amaral MD [address] [place] [address] documented as of this encounter Visit Diagnoses Not on filedocumented in this encounter Additional Health Concerns Assessment Noted Time PHQ-9 Depression Total Score: 7 05/23/20 25 10:19 AM EDT documented as of this encounter Care Teams Meter Installer And Remover Relationship Specialty Start Date End Date Heena Abbasi MD [address] [place] [address] PCP - General Family Medicine 09/05/12 Eli Higuera Cooker Process CheeseMetal Wire Coating Operator 03/17/24 Eli Higuera Cooker Process CheeseMetal Wire Coating Operator 10/05/24 Eli Higuera Cooker Process CheeseMetal Wire Coating Operator 02/22/25 documented as of this encounter
--- OUTSIDE RECORDS SUMMARY | 2025-06-20 15:59 | XMS_ITS | Encounter Summary ---
Author Organization [facility] [employer] [facility] Address 75 [facility] 7t [place] [address] Care Team Providers Care Security Researcher Name Role Phone Heean Abbasi MD Primary Care Provider [phone] Encounter Details Date Type Department Care Team (Late Contact Info) Description 12/09/2022 Orders Only [facility] MED & PEDS [address] [place] [address] Heena Abbasi MD [address] [place] [address] Social History Tobacco Use Types Packs/Day Years [...] Department Care Team (Late Contact Info) Description 07/09/2025 11:30 AM EDT Clinical Support [facility] MED & PEDS [address] [place] [address] 08/06/2025 1:15 PM EST Office Visit [facility] MED & PEDS [address] [place] [address] Lauren Amaral MD [address] [place] [address] documented as of this encounter Visit Diagnoses Not on filedocumented in this encounter Care Teams Security Researcher Relationship Specialty Start Date End Date Heena Abbasi MD [address] [place] [address] PCP - General Family Medicine 09/05/12 Eli Higuera Mixer Diamond PowderProduction Control Supervisor 03/17/24 Eli Higuera Mixer Diamond PowderProduction Control Supervisor 10/05/24 Eli Higuera Mixer Diamond PowderProduction Control Supervisor 02/22/25 documented as of this encounter
--- OUTSIDE RECORDS SUMMARY | 2025-06-20 15:59 | XMS_ITS | Encounter Summary ---
Author Organization [employer] Address [address] [facility] 7t [place] [address] Care Team Providers Care Administrator Pesticide Name Role Phone Heena Abbasi MD Primary Care Provider Reason for Visit * Reason Onset Date Comments Med Refill 03/30/2023 Encounter Details Date Type Department Care Team ([facility] st Contact Info) Description 03/30/2023 Telephone [facility] MED & PEDS [address] [place], [place] [phone] Heena Abbasi MD [address] [place] [address] Med Refill Social History Tobacco Use Types [...] - 03/31/2023 8:41 AM EDT Managed by [facility] coumadin clinic. Noted INR result [...] Description 07/09/2025 11:30 AM EDT Clinical Support [facility] MED & PEDS [address] [place] [address] 08/06/2025 1:15 PM EST Office Visit [facility] MED & PEDS [address] [place] [address] Lauren Amaral MD [address] [place] [address] documented as of this encounter Visit Diagnoses Not on filedocumented in this encounter Care Teams Administrator Pesticide Relationship Specialty Start Date End Date Heena Abbasi MD [address] [place] [address] PCP - General Family Medicine 09/05/12 Eli Higuera Carpenter MaintenanceRivet Spinner 03/17/24 Eil Higuera Carpenter MaintenanceRivet Spinner 10/05/24 Eli Higuera Carpenter MaintenanceRivet Spinner 02/22/25 documented as of this encounter
--- OUTSIDE RECORDS SUMMARY | 2025-06-20 15:59 | XMS_ITS | Encounter Summary ---
Author Organization [email or web address] Address [address] [facility] 7t [place] [address] Care Team Providers Care Redeye Gunner Name Role Phone Heena Abbasi MD Primary Care Provider [phone] Encounter Details Date Type Department Care Team (Latest Contact Info) Description 05/08/2025 Results Follow-Up [facility] MED & PEDS [address] [place], [place] [phone] Heena Abbasi MD [address] [place], [place] [phone] BI Mammogram Screening Tomosynthesis Bilateral Social History [...] Description 07/09/2025 11:30 AM EDT Clinical Support [facility] MED & PEDS 505 [place] [address] 08/06/2025 1:15 PM EST Office Visit [facility] [address] [place] [address] Lauren Amaral MD 505 [place] [address] documented as of this encounter Visit Diagnoses Not on filedocumented in this encounter Additional Health Concerns Assessment Noted Time PHQ-9 Depression Total Score: 5 12/31/19 24 10:57 AM EDT documented as of this encounter Care Teams Redeye Gunner Relationship Specialty Start Date End Date Heena Abbasi MD [address] [place] [address] PCP - General Family Medicine 09/05/12 Eli Higuera Senior Pricing AnalystCustomer Acquisition Manager 03/17/24 Eli Higuera Senior Pricing AnalystCustomer Acquisition Manager 10/05/24 Eli Higuera Senior Pricing AnalystCustomer Acquisition Manager 02/22/25 documented as of this encounter
--- OUTSIDE RECORDS SUMMARY | 2025-06-20 15:59 | XMS_ITS | Encounter Summary ---
Author Organization [employer] Address [address] [facility] 7t [place] [address] Care Team Providers Care Installer Molding And Trim Name Role Phone Heena Abbasi MD Primary Care Provider [phone] Reason for Visit * Reason Onset Date Comments pre tx medication 02/16/2023 Encounter Details Date Type Department Care Team (Late Contact Info) Description 02/16/2023 Telephone [facility] ADULT DENTAL [address] [place], [place] [phone] Socorro Auguste DDS pre tx medication Social [...] [facility] MED & PEDS [address] [place] [address] 08/06/2025 1:15 PM EST Office Visit [facility] MED & PEDS [address] [place], [place] [phone] Lauren Amaral MD 505 [place] [address] documented as of this encounter Visit Diagnoses Not on filedocumented in this encounter Care Teams Installer Molding And Trim Relationship Specialty Start Date End Date Heena Abbasi MD [address] [place] [address] PCP - General Family Medicine 09/05/12 Eli Higuera Wedding PlannerTest Lab Technician 03/17/24 Eli Higuera Wedding PlannerTest Lab Technician 10/05/24 Eli Higuera Wedding PlannerTest Lab Technician 02/22/25 documented as of this encounter
--- OUTSIDE RECORDS SUMMARY | 2025-06-20 15:59 | XMS_ITS | Encounter Summary ---
Author Organization [employer] [facility] Address [address] [facility] 7t [place] [address] Care Team Providers Care Party Plan Selling Distributor Name Role Phone Heena Abbasi MD Primary Care Provider [phone] Encounter Details Date Type Department Care Team (Late Contact Info) Description 04/05/2023 Orders Only [facility] [address] [place] [address] Heena Abbasi MD 505 [place] [address] Social History Tobacco Use Types Packs/Day Years [...] Description 07/09/2025 11:30 AM EDT Clinical Support [facility] MED & PEDS [address] [place] [address] 08/06/2025 1:15 PM EST Office Visit [facility] MED [facility]EDS [address] [place] [address] Lauren Amaral MD 505 [place] [address] documented as of this encounter Visit Diagnoses Not on filedocumented in this encounter Care Teams Party Plan Selling Distributor Relationship Specialty Start Date End Date Heena Abbasi MD [address] [place] [address] PCP - General Family Medicine 09/05/12 Eli Higuera Industrial AnalystReferral Clerk 03/17/24 Eli Higuera Industrial AnalystReferral Clerk 10/05/24 Eli Higuera Industrial AnalystReferral Clerk 02/22/25 documented as of this encounter
--- OUTSIDE RECORDS SUMMARY | 2025-06-20 15:59 | XMS_ITS | Encounter Summary ---
Author Organization [email or web address] [facility] Address [address] [facility] 7t [place] [address] Care Team Providers Care Iron Melter Name Role Phone Heena Abbasi MD Primary Care Provider [phone] Encounter Details Date Type Department Care Team (Late st Contact Info) Description 01/01/2023 Orders Only [facility] MED & PEDS [address] [place] [address] Heena Abbasi MD 505 [place] [address] Muscle spasm Social History Tobacco Use Types [...] AM EDT Clinical Support [facility] MED & PEDS 505 [place] [address] 08/06/2025 1:15 PM EST Office Visit [facility] MED & PEDS 505 [place] [address] Lauren Amaral MD 505 [place] [address] documented as of this encounter Visit Diagnoses Diagnosis Muscle spasm Spasm of muscle documented in this encounter Care Teams Iron Melter Relationship Specialty Start Date End Date Heena Abbasi MD [address] [place] [address] PCP - General Family Medicine 09/05/12 Eli Higuera Millinery BlockerStatistics Manager 03/17/24 Eli Higuera Millinery BlockerStatistics Manager 10/05/24 Eli Higuera Millinery BlockerStatistics Manager 02/22/25 documented as of this encounter
--- OUTSIDE RECORDS SUMMARY | 2025-06-20 15:59 | XMS_ITS | Encounter Summary ---
Author Organization [employer] Address [address] [facility] 7t [place] [address] Care Team Providers Care Night Time Babysitter Name Role Phone Heena Abbasi MD Primary Care Provider [phone] Encounter Details Date Type Department Care Team (Latest Contact Info) Description 06/20/2025 Travel Social History Tobacco Use Types Packs/Day [...] 11:30 AM EDT Clinical Support [facility] MED & PEDS 505 [place] [address] 08/06/2025 1:15 PM EST Office Visit [facility] MED & PEDS 505 [place] [address] Lauren Amaral MD 505 [place] [address] documented as of this encounter Visit Diagnoses Not on filedocumented in this encounter Additional Health Concerns Assessment Noted Time PHQ-9 Depression Total Score: 7 05/23/20 10:19 AM EDT documented as of this encounter Care Teams Night Time Babysitter Relationship Specialty Start Date End Date Heena Abbasi MD [address] [place] [address] PCP - General Family Medicine 09/05/12 Eli Higuera Manufacturing SpecialistAndroid Framework Developer 03/17/24 Eli Higuera Manufacturing SpecialistAndroid Framework Developer 10/05/24 Eli Higuera Manufacturing SpecialistAndroid Framework Developer 02/22/25 documented as of this encounter
--- OUTSIDE RECORDS SUMMARY | 2025-06-20 15:59 | XMS_ITS | Encounter Summary ---
Author Organization [employer] Address [address] [facility] 7t [place] [address] Care Team Providers Care Slip Laster Name Role Phone Heena Abbasi MD Primary Care Provider [phone] Reason for Visit * Reason Onset Date Comments Dr. Golden medical clearance ?? 11/23/2024 Encounter Details Date Type Department Care Team (Late st Contact Info) Description 11/23/2024 Telephone [facility] ADULT DENTAL [address] [place] [address] Reynoso medical clearance [...] Description 07/09/2025 11:30 AM EDT Clinical Support [facility] MED & PEDS 505 [place] [address] 08/06/2025 1:15 PM EST Office Visit [facility] MED & PEDS 505 [place] [address] Lauren Amaral MD 505 [place] [address] documented as of this encounter Visit Diagnoses Not on filedocumented in this encounter Additional Health Concerns Assessment Noted Time PHQ-9 Depression Total Score: 5 12/31/19 24 10:57 AM EDT documented as of this encounter Care Teams Slip Laster Relationship Specialty Start Date End Date Heena Abbasi MD [address] [place] [address] PCP - General Family Medicine 09/05/12 Eli Higuera Hot Billet Shear OperatorElectrical Design Technician 03/17/24 Eli Higuera Hot Billet Shear OperatorElectrical Design Technician 10/05/24 Eli Higuera Hot Billet Shear OperatorElectrical Design Technician 02/22/25 documented as of this encounter
--- OUTSIDE RECORDS SUMMARY | 2025-06-20 15:59 | XMS_ITS | Encounter Summary ---
Author Organization [employer] Address [address] [facility] 7t [place] [address] Care Team Providers Care Pensionholder Information Clerk Name Role Phone Heena Abbasi MD Primary Care Provider [phone] Reason for Visit * Reason Onset Date Comments Appointment Request 06/19/2025 Encounter Details Date Type Department Care Team ([facility] st Contact Info) Description 06/19/2025 Telephone [facility] CH[facility] MED & PEDS [address] [place], [place] [phone] Heena Abbasi MD 505 [place] [address] Appointment Request Social History Tobacco Use Types [...] reports ambulating at baseline with assistive device. [facility] appointment offered for 06/20/25. Ptverbalized understanding and agreement to appointment with provider to assess pain. documented in this encounter Plan of Treatment Upcoming Encounters Date Type Department Care Team ([facility] st Contact Info) Description 07/09/2025 11:30 AM EDT Clinical Support [facility] MED & PEDS [address] [place] [address] 08/06/2025 1:15 PM EST Office Visit [facility] MED & PEDS [address] [place] [address] Lauren Amaral MD 505 [place] [address] documented as of this encounter Visit Diagnoses Not on filedocumented in this encounter Additional Health Concerns Assessment Noted Time PHQ-9 Depression Total Score: 7 05/23/20 25 10:19 AM EDT documented as of this encounter Care Teams Pensionholder Information Clerk Relationship Specialty Start Date End Date Heena Abbasi MD [address] [place] [address] PCP - General Family Medicine 09/05/12 Eli Higuera Technical Account RepresentativePocket Cutter 03/17/24 Eli Higeura Technical Account RepresentativePocket Cutter 10/05/24 Eli Higuera Technical Account RepresentativePocket Cutter 02/22/25 documented as of this encounter
--- OUTSIDE RECORDS SUMMARY | 2025-06-20 15:59 | XMS_ITS | Encounter Summary ---
Author Organization [employer] Address [address] [facility] 7t [place] [address] Care Team Providers Care Camp Housekeeper Name Role Phone Heena Abbasi MD Primary Care Provider [phone] Encounter Details Date Type Department Care Team (Late st Contact Info) Description 02/29/2024 Telephone [facility]ULT [facility] [address] [place] [address] Perri Noble, SOREN Social History Tobacco Use [...] 07/09/2025 11:30 AM EDT Clinical Support [facility] MED [facility] PED[facility] 505 [place] [address] 08/06/2025 1:15 PM EST Office Visit [facility] MED [facility] PEDS 505 [place] [address] Lauren Amaral MD 505 [place] [address] documented as of this encounter Visit Diagnoses Not on filedocumented in this encounter Additional Health Concerns Assessment Noted Time PHQ-9 Depression Total Score: 5 12/31/19 24 10:57 AM EDT documented as of this encounter Care Teams Camp Housekeeper Relationship Specialty Start Date End Date Heena Abbasi MD [address] [place] [address] PCP - General Family Medicine 09/05/12 Eli Higuera Security Support AnalystInternet Architect 03/17/24 Eli Higuera Security Support AnalystInternet Architect 10/05/24 Eli Higuera Security Support AnalystInternet Architect 02/22/25 documented as of this encounter
--- OUTSIDE RECORDS SUMMARY | 2025-06-20 16:00 | XMS_ITS | Encounter Summary ---
Author Organization [employer] Address [address] [facility] 7t [place] [address] Care Team Providers Care Chro Name Role Phone Heena Abbasi MD Primary Care Provider [phone] Reason for Visit * Reason Onset Date Comments Referral 05/17/2023 Encounter Details Date Type Department Care Team ([facility] st Contact Info) Description 05/17/2023 Telephone [facility] MED & PEDS 505 [place], [place] [phone] Heena Abbasi MD 505 [place] [address] Referral Social History Tobacco Use Types Packs/Day [...] ([facility]) requesting referral for pt. Location: [place] [address], [place] Date: n/a Time: n/a Specialty: statistical modeler documented in this encounter Plan of Treatment Upcoming Encounters Date Type Department Care Team ([facility] st Contact Info) Description 07/09/2025 11:30 AM EDT Clinical Support [facility] MED & PEDS [address] [place] [address] 08/06/2025 1:15 PM EST Office Visit [facility] MED & PEDS [address] [place] [address] Lauren Amaral MD 505 [place] [address] documented as of this encounter Visit Diagnoses Not on filedocumented in this encounter Care Teams Chro Relationship Specialty Start Date End Date Heena Abbasi MD [address] [place] [address] PCP - General Family Medicine 09/05/12 Eli Higuera Quality Control AssociateEdge Trimmer 03/17/24 Eli Higuera Quality Control AssociateEdge Trimmer 10/05/24 Eli Higuera Quality Control AssociateEdge Trimmer 02/22/25 documented as of this encounter
[2025-06-20 18:12] LABS: MANUAL DIFF FLAG NO
[2025-06-20 18:16] LABS: Hematocrit 33.8 % (37.0-47.0); Hemoglobin 10.3 g/dl (12.0-16.0); Imm Gran Abs Auto 0.03 X10*3/uL (0.00-0.03); Imm Gran Pct Auto 0.3 % (0.0-0.4); Lymphocytes Absolute Auto 2.4 X10*3/uL (1.2-4.9); Mean Corpuscular HGB Conc 30.5 g/dl (31.0-35.0); Mean Corpuscular Hemoglobin 22.5 pg (27.0-33.0); Mean Corpuscular Volume 74.0 fL (80.0-98.0); NRBC Abs Auto 0.000 X10*3/uL (0.0-0.012); NRBC Pct Auto 0.0 /100WBC (0.0-0.2); Platelet Count 599 X10*3/uL (160-400); Red Blood Count 4.57 X10*6/uL (4.20-5.50); White Blood Count 9.0 X10*3/uL (4.8-10.8)
[2025-06-20 18:40] LABS: Anion Gap 11 (12-20); Blood Urea Nitrogen 19 mg/dL (9-16); Calcium 8.9 mg/dL (8.4-10.2); Carbon Dioxide 23 mmol/L (22-29); Chloride 108 mmol/L (96-108); Estimated Glomerular Filt Rate > 60; Potassium 4.3 mmol/L (3.3-5.1); Sodium 138 mmol/L (135-145)
== END 2025-06-20 14:51 | disposition home or self-care (01) ==
LOC: HO.CHCLDS 14:50
PROVIDERS: Visit Provider Internal Medicine
DX: R10.A1 Flank pain, right side (principal); R10.31 Right lower quadrant pain
CPT/HCPCS: 36415; 80048; 85025; 85652; 86140

== ENCOUNTER 2025-07-11 10:00 | Outpatient (AMB) | payer MEDICAID, SELFPAY ==
--- OUTSIDE RECORDS SUMMARY | 2025-07-09 11:30 | XMS_ITS | Encounter Summary ---
Author Organization [employer] Address [address] [facility] 7t [place] [address] Care Team Providers Care Curator Herbarium Name Role Phone Heena Abbasi MD Primary Care Provider [phone] Reason for Visit * Reason Comments Hypertension Encounter Details Date Type Department Care Team (Latest Contact Info) Description 07/09/2025 11:30 AM EDT Clinical Support [facility] MED & PEDS [address] [place] [address] Arianna Gutierrez RN Benign hypertension Social History Tobacco Use Types Packs/Day Years [...] Sign Reading Time Taken Comments Blood Pressure 130/64 07/09/2025 11:50 AM EDT Pulse 88 07/09/2025 11:49 AM EDT Temperature - - Respiratory Rate - - Oxygen Saturation - - Inhaled Oxygen Concentration - - Weight - - Height - - Body Mass Index - - documented in this encounter Progress Notes * Arianna Gutierrez RN - 07/09/2025 11:30 AM EDT SUBJECTIVE: Omaira Holly is a 60 y.o. 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 Omaira reports that she has been monitoring her BP when remembering and has brought in numbers to appointment. Omaira reports that she stays active by walking in her home and in her community through mus[employer] and uses a mobility aid cane for assistance. Omaira reports that she does cooking at home. 24 hr food inventory: No breakfast, onlywater this morning. Dinner included plantain and 1 cup of decaf coffee with cream, and lunch included cheerios cereal and milk. Omaira reports when she cooks she uses loren frito without salt added and uses salt free seasoning. Home BP Readings: 120/78 HR 74 133/87 HR 92 127/80 HR 84 120/82 HR 97 136/84 HR 84 Today, Omaira Holly does not complain of any blurred vision, shortness of breath, chest pain, dizziness, or headaches. Current Medications[1] Patient Active Problem List Diagnosis Date Noted Cervical cancer screening 06/26/2025 Acute right-sided low back pain with right-sided sciatica 10/13/2024 Right sided abdominal pain 10/13/2024 Acute bilateral low back pain 02/18/2024 Allergic reaction 07/02/2023 Rash 07/02/2023 Chronic atrial fibrillation (CMS/HCC) (HCC) 10/19/2022 Benign hypertension 03/06/2013 Hypercholesterolemia 03/06/2013 Insomnia 03/06/2013 Patient has no known allergies. Omaira Holly does confirm adherence to medications for hypertension listed above. Confirmed medications taken today [x] Recent emergency room or hospitalizations: No Tobacco Use History[2] Social History Substance and Sexual Activity Alcohol Use Defer Social History Substance and Sexual Activity Drug Use Defer BP Readings from Last 4 Encounters: 07/09/25 130/64 06/20/25 (!) 150/90 06/19/25 (!) 154/90 05/23/25 (!) 152/80 Pulse Readings from Last 4 Encounters: 07/09/25 88 06/20/25 78 06/19/25 78 05/23/25 72 OBJECTIVE: Vitals: 07/09/25 1149 07/09/25 1150 BP: 130/68 130/64 BP Location: Right arm Left arm Patient Position: Sitting Sitting BP Cuff Size: Adult Adult Pulse: 88 ASSESSMENT: Achieve goal blood pressure of <130/80 Omaira is borderline with her goal PLAN: Omaira Holly advised to continue taking medications as directed and reinforcement of lifestyle modifications including low sodium diet and exercise were reviewed. Advised if Omaira ever experiences headaches and nausea without a known cause to check BP. Omaira has a transfer patient appointment with Dr. Amaral on 08/06/25. Omaira Holly agreeable to plan discussed at today's visit. Future Appointments Date Time Provider Department Center 08/06/2025 1:15 PM Lauren Amaral MD [facility] Arianna Gutierrez RN [1] Current Outpatient Medications Medication Sig Dispense Refill acetaminophen (Tylenol 8 Hour) 650 MG ER tablet Take 1 tablet (650 mg) by mouth every 8 (eight) hours if needed for moderate pain or mild pain. 30 tablet 0 ammonium lactate (Amlactin) 12 % cream APPLY TO ARMS, TRUNK, AND LEGS TWICE A DAY lcjjbwh-elmdlutmypgib-xniaipgn (Excedrin Migraine) 250-250-65 MG tablet take 1 tablet by oral routeevery 8 hours prn 90 tablet 1 BP Wash 10 % external wash APPLY TO INFRAMAMMARY 1 TO 2 TIMES PER DAY THEN RINSE Calcium Carb-Cholecalciferol 500-10 MG-MCG tablet Take 1 tablet by mouth 1 (one) time each day. cetirizine (ZyrTEC) 10 MG tablet TAKE 1 TABLET BY MOUTH 1-2 TIMES PER DAY FOR ITCH, RASH 180 tablet0 chlorhexidine (Hibiclens) 4 % external liquid Apply topically if needed each day for wound care. 100 mL 3 Clindamycin Phosphate (Clindamycin Phos, Twice-Daily,) 1 % gel APPLY TO INFRAMAMMARY 1 TO 2 TIMES PER DAY AFTER BENZOYL PEROXIDE WASH cyclobenzaprine (Flexeril) 10 MG tablet Take 1 tablet (10 mg) by mouth at bedtime. 30 tablet 0 cyclobenzaprine (Flexeril) 5 MG tablet Take 1 tablet by mouth at bedtime. dextran 70-hypromellose (artificial tears) 0.1-0.3 % ophthalmic solution Administer 1 drop into both eyes if needed in the morning, at noon, and at bedtime for dry eyes. 30 mL 11 Diclofenac Sodium 1 % gel APPLY 1 INCH TOPICALLY ONCE A DAY 100 g 0 ferrous sulfate 325 (65 Fe) MG tablet Take 1 tablet by mouth 1 (one) time each day. Fluocinolone Acetonide Scalp 0.01 % oil APPLY AT BEDTIME OVERNIGHT UNDER OCCLUSION (DO-RAG) FLUoxetine (PROzac) 10 MG tablet TOME ELIO TABLETA TODOS LOS SAGE EN LA MANANA 30 tablet 2 fluticasone (Cutivate) 0.005 % ointment APLIQUE AL AREA AFECTADA DOS VECES AL RENAY 30 g 3 gemfibrozil (Lopid) 600 MG tablet Take 1 tablet (600 mg) by mouth 2 times daily. 180 tablet 11 Lidocaine 5 % cream Apply topically bid 30 g 3 lidocaine-prilocaine (Emla) 2.5-2.5 % cream APPLY BY TOPICAL ROUTE EVERY DAY NEEDED. pantoprazole (ProtoNix) 20 MG EC tablet TAKE 1 TABLET BY MOUTH BEFORE BREAKFAST 90 tablet 1 polyvinyl alcohol (Liquifilm Tears) 1.4 % ophthalmic solution PLACE 1 DROP IN EACH EYE THREE TIMES DAILY IN THE MORNING, AT NOON, AND AT BEDTIME NEEDED FOR DRY EYES traZODone (Desyrel) 50 MG tablet TAKE 1 TABLET BY MOUTH AT BEDTIME 30 tablet 2 triamcinolone (Kenalog) 0.025 % ointment APPLY TO CHEST TWICE DAILY NEEDED FOR FLARES, DECREASE USE SYMPTOMS IMPROVE Triamcinolone Acetonide 0.025 % lotion APPLY TO SCALP TWICE A DAY IF NEEDED FOR FLARES, DECREASE USE SYMPTOMS IMPROVE Strength: 0.025 % 60 mL 3 warfarin (Coumadin) 2 MG tablet TAKE 1 TABLET BY ORAL ROUTE EVERY DAY DIRECTED BY THE COUMADIN CLINIC 30 tablet 11 warfarin (Coumadin) 4 MG tablet Take 1 tablet by mouth daily OR DIRECTED BY THE COUMADIN CLINIC 30 tablet 1 No current facility-administered medications for this visit. [2] Social History Tobacco Use Smoking Status Former Types: Cigarettes Passive exposure: Past Smokeless Tobacco Never Tobacco Comments Cigarette use for 37 yrs, started at 13 yrs old & stopped when she was 50 year old. 1PPD for 7 years and then 2 PPD. documented in this encounter Plan of Treatment Upcoming Encounters Date Type Department Care Team (Late st Contact Info) Description 08/06/2025 1:15 PM EST Office Visit [facility] MED & PEDS [address] [place] [address] Lauren Amaral MD [address] [place] [address] documented as of this encounter Visit Diagnoses Diagnosis Benign hypertension Essential hypertension, benign documented in this encounter Additional Health Concerns Assessment Noted Time PHQ-9 Depression Total Score: 7 05/23/20 25 10:19 AM EDT documented as of this encounter Care Teams Curator Herbarium Relationship Specialty Start Date End Date Heena Abbasi MD [address] [place] [address] PCP - General Family Medicine 09/05/12 Eli Higuera IndexerRectifier Operator 03/17/24 Eli Higuera IndexerRectifier Operator 10/05/24 Eli Higuera IndexerRectifier Operator 02/22/25 documented as of this encounter
--- NOTE | 2025-07-11 10:22 | MHC.OFFVISCO ---
Intake Intake Visit Reasons: Anticoagulation Allergies No Known Allergies Allergy (Mild, Verified 07/11/25 10:08) N/A Medication List - Last Reconciled 07/11/25 by Halima Cortez RN acetaminophen ER (Tylenol 8 Hour) 650 mg PO Q8H PRN ammonium lactate 12% 1 appl topical BID dvhayjv-pydofihcelaxu-kxxtviri 250-250-65 mg (Pain Reliever Plus) 0 tabs PO [calcium,magnesium,zinc and vitamin D3 1 tab PO DAILY] cetirizine 10 mg PO chlorhexidine gluconate 4% (Betasept Surgical Scrub) topical DAILY PRN xmocowlj-qjyivu-yhfsqvdd acid 500 mg-800 mcg- 50 mg (Collagen 1500 Plus C) 3 caps PO DAILY cyclobenzaprine 5 mg PO BEDTIME diphenhydramine HCl (Banophen) 25 mg PO BEDTIME PRN famotidine 20 mg PO DAILY fluoxetine 10 mg PO QAM fluticasone propionate 0.005% 1 appl topical DAILY gemfibrozil 600 mg PO BID ketotifen fumarate 0.025%(0.035%) 1 drp ophthalmic (eye) BID lidocaine-prilocaine 2.5-2.5 % grams topical DAILY PRN methocarbamol 500 mg PO QID pantoprazole 20 mg PO DAILY trazodone 50 mg PO BEDTIME PRN triamcinolone acetonide 0.025% 1 appl topical BID triamcinolone acetonide 0.025% 1 appl topical BID warfarin 4 mg See Protocol PO DAILY Nursing Note INR: 2.7- in therapeutic range of 2-3 Medications and supplements reviewed- pt questioning vit K2- aware will interact with warfarin and she states wont take No changes in health, diet, medications, or supplements, Denies any signs and symptoms of bleeding or bruising or clotting. 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
[2025-07-11 10:23] LABS: Prothrombin Time Whole Bld POC 32.8 sec (11.1-13.5); ~PT, ~INR - Anti Coag Clinic 2.7 (0.9-1.1)
--- OUTSIDE RECORDS SUMMARY | 2025-07-11 12:05 | XMS_ITS | Encounter Summary ---
Author Organization [employer] Address [address] [facility] [address] [place] [address] Care Team Providers Care Time Clock Repairer Name Role Phone Heena Abbasi MD Primary Care Provider [phone] Reason for Referral * Imaging (Urgent) - Authorized Specialty Diagnoses / Procedures Referred By Contemmanuel clark Referred To Contact Radiology Diagnoses Right flank pain Right lower quadrant pain Procedures CT Abdomen Pelvis w/ Contrast Hodan aHnna MD [address] [place] [id number] Phone: tel: fax: [address] Phone: tel: fax: Referral ID Status Reason Start Date Expiration Date V isits Requested Visits Authorized [id number] Authorized 06/27/2025 06/27/2026 1 1 Encounter Details Date Type Department Care Team (Late st Contact Info) Description 06/27/2025 Orders Only [facility] [address] [place] [id number] Hodan Hanna MD [address] [place] [address] Right flank pain (Primary Dx); Right lower [...] Upcoming Encounters Date Type Department Care Team ([facility] st Contact Info) Description 08/06/2025 1:15 PM EST Office Visit [facility] [address] [place] [address] Lauren Amaral MD [address] [place] [address] Scheduled Orders Name Type Priority Associated Diagnoses Orde r Schedule CT Abdomen Pelvis w/ Contrast Imaging Urgent Right flank pain Right lower quadrant pain Expected: 06/27/2025, Expires: 06/27/2026 documented as of this encounter Visit Diagnoses Diagnosis Right flank pain- Primary Abdominal pain, unspecified site Right lower quadrant pain documented in this encounter Additional Health Concerns Assessment Noted Time PHQ-9 Depression Total Score: 7 05/23/20 25 10:19 AM EDT documented as of this encounter Care Teams Time Clock Repairer Relationship Specialty Start Date End Date Heena Abbasi MD [address] [place] [address] PCP - General Family Medicine 09/05/12 Eli Higuera Rubber MixerSheet Metal Assembler 03/17/24 Eli Higuera Rubber MixerSheet Metal Assembler 10/05/24 Eli Higuera Rubber MixerSheet Metal Assembler 02/22/25 documented as of this encounter
--- OUTSIDE RECORDS SUMMARY | 2025-07-11 12:05 | XMS_ITS | Encounter Summary ---
Author Organization [employer] [facility] Address [address] [facility] 7[address] [place] [address] Care Team Providers Care Proposal Manager Writer Name Role Phone Heena Abbasi MD Primary Care Provider [phone] Encounter Details Date Type Department Care Team (Latest Contact Info) Description 07/29/2022 Abstract [facility] Dental, Provider, DDS Social History Tobacco [...] Description 08/06/2025 1:15 PM EST Office Visit [facility] [address] [place] [address] Lauren Amaral MD [address] [place] [address] documented as of this encounter Visit Diagnoses Not on filedocumented in this encounter Care Teams Proposal Manager Writer Relationship Specialty Start Date End Date Heena Abbasi MD [address] [place] [address] PCP - General Family Medicine 09/05/12 Eli Higuera Speech CoachOperating Room Rn 03/17/24 Eli Higuera Speech CoachOperating Room Rn 10/05/24 Eli Higuera Speech CoachOperating Room Rn 02/22/25 documented as of this encounter
--- OUTSIDE RECORDS SUMMARY | 2025-07-11 12:05 | XMS_ITS | Encounter Summary ---
Author Organization [employer] Address [address] [facility] [address] [place] [address] Care Team Providers Care Boiling Off Winder Name Role Phone Heena Abbasi MD Primary Care Provider [phone] Reason for Visit * Reason Onset Date Comments Dr. Golden medical clearance ?? 11/23/2024 Encounter Details Date Type Department Care Team (Late st Contact Info) Description 11/23/2024 Telephone C [facility] [address] [place] [address] Reynoso medical clearance [...] Upcoming Encounters Date Type Department Care Team ([facility] st Contact Info) Description 08/06/2025 1:15 PM EST Office Visit [facility] [address] [place] [address] Lauren Amaral MD [address] [place] [address] documented as of this encounter Visit Diagnoses Not on filedocumented in this encounter Additional Health Concerns Assessment Noted Time PHQ-9 Depression Total Score: 5 12/31/19 24 10:57 AM EDT documented as of this encounter Care Teams Boiling Off Winder Relationship Specialty Start Date End Date Heena Abbasi MD [address] [place] [phone] PCP - General Family Medicine 09/05/12 Eli Higuera [facility] Social WorkerSkein Dyer 03/17/24 Eli Higuera [facility] Social WorkerSkein Dyer 10/05/24 Eli Higuera [facility] Social WorkerSkein Dyer 02/22/25 documented as of this encounter
--- OUTSIDE RECORDS SUMMARY | 2025-07-11 12:05 | XMS_ITS | Encounter Summary ---
Author Organization [employer] Address [address] [facility] [address] [place] [address] Care Team Providers Care Rug Sizer Name Role Phone Heena Abbasi MD Primary Care Provider [phone] Encounter Details Date Type Department Care Team (Late Contact Info) Description 09/10/2022 Orders Only [facility] [address] [place], [place] [id number] Tierra Ashby LPN Social History Tobacco Use [...] Description 08/06/2025 1:15 PM EST Office Visit [facility] [address] [place] [address] Lauren Amaral MD [address] [place] [address] documented as of this encounter Visit Diagnoses Not on filedocumented in this encounter Care Teams Rug Sizer Relationship Specialty Start Date End Date Heena Abbasi MD [address] [place] [address] PCP - General Family Medicine 09/05/12 Eli Higuera Hot Stamp OperatorWoods Superintendent 03/17/24 Eli Higuera Hot Stamp OperatorWoods Superintendent 10/05/24 Eli Higuera Hot Stamp OperatorWoods Superintendent 02/22/25 documented as of this encounter
--- OUTSIDE RECORDS SUMMARY | 2025-07-11 12:05 | XMS_ITS | Clinical Summary ---
Author Organization [facility] Address [address] [place] [address] Care Team Providers Care Process Engineering Technician Name Role Phone Heena Abbasi MD Primary Care Provider [phone] Allergies No known active allergies Medications Calcium Carb-Cholecalcif yana 500-10 MG-MCG tablet Take 1 tablet by mouth 1 (one) time each day. 02/05/20 21 Active cyclobenzaprine (Flexeril) 5 MG tablet Take 1 tablet by mouth at bedtime. 07/27/20 22 Active ferrous sulfate 325 (65 Fe) MG tablet Take 1 tablet by mouth 1 (one) time each day. 03/15/20 22 Active lidocaine-priloc diya (Emla) 2.5-2.5 % cream APPLY BY TOPICAL ROUTE EVERY DAY NEEDED. 07/27/20 22 Active chlorhexidine (Hibiclens) 4 % external liquidIndication s:Hydradenitis Apply topically if needed each day for wound care. 100 mL 3 09/29/19 23 Active aspirin-acetamin ophen-caffeine (Excedrin Migraine) 250-250-65 MG tabletIndication s:Hypercholester olemia take 1 tablet by oral route every 8 hours prn 90 tablet 1 10/02/19 23 Active fluticasone (Cutivate) 0.005 % ointmentIndicati ons:Eczema, [...] 02/18/20 24 Active FLUoxetine (PROzac) 10 MG tabletIndication s:Flushing, menopausal TOME ELIO TABLETA TODOS LOS SAGE EN LA MANANA 30 tablet 2 04/20/20 24 Active traZODone (Desyrel) 50 MG tabletIndication s:Insomnia, unspecified type TAKE 1 TABLET BY MOUTH AT BEDTIME 30 tablet 2 05/09/20 24 Active Diclofenac Sodium 1 % gelIndications:A cute bilateral low back pain, unspecified whether sciatica present APPLY 1 INCH TOPICALLY ONCE A DAY 100 g 05/15/20 24 Active Lidocaine 5 % creamIndications :Acute right-sided [...] 026 Active pantoprazole (ProtoNix) 20 MG EC tabletIndication s:GERD without esophagitis TAKE 1 TABLET BY MOUTH BEFORE BREAKFAST 90 tablet 1 11/14/19 25 Active warfarin (Coumadin) 2 MG tablet TAKE 1 TABLET BY ORAL ROUTE EVERY DAY DIRECTED BY THE COUMADIN CLINIC 30 tablet 11 05/23/20 25 Active warfarin (Coumadin) 4 MG tabletIndication s:Chronic atrial fibrillation (CMS/HCC) (HCC) Take 1 tablet by mouth daily OR DIRECTED BY THE COUMADIN CLINIC 30 tablet 1 05/23/20 25 Active gemfibrozil (Lopid) 600 MG tabletIndication s:Hypercholester olemia Take 1 tablet (600 mg) by mouth 2 times daily. 180 tablet 05/23/20 25 Active Triamcinolone Acetonide 0.025 % lotion APPLY TO SCALP TWICE A DAY IF NEEDED FOR FLARES, DECREASE USE SYMPTOMS IMPROVE Strength: 0.025 % 60 mL 3 05/23/20 25 Active cyclobenzaprine (Flexeril) 10 MG tablet Take 1 tablet (10 mg) by mouth at bedtime. 30 tablet 05/23/20 25 Active cetirizine (ZyrTEC) 10 MG tablet TAKE 1 TABLET BY MOUTH 1-2 TIMES PER DAY FOR ITCH, RASH 180 tablet 05/23/20 25 Active BP Wash 10 % external wash APPLY TO INFRAMAMMARY 1 TO 2 TIMES PER DAY THEN RINSE 05/01/20 25 Active Clindamycin Phosphate (Clindamycin Phos, Twice-Daily,) 1 % gel APPLY TO INFRAMAMMARY 1 TO 2 TIMES PER DAY AFTER BENZOYL PEROXIDE WASH 05/01/20 25 Active Fluocinolone Acetonide Scalp 0.01 % oil APPLY AT BEDTIME OVERNIGHT UNDER OCCLUSION (DO-RAG) 05/01/20 25 Active polyvinyl alcohol (Liquifilm Tears) 1.4 % ophthalmic solution PLACE 1 DROP IN EACH EYE THREE TIMES DAILY IN THE MORNING, AT NOON, AND AT BEDTIME NEEDED FOR DRY EYES 10/31/19 25 Active acetaminophen (Tylenol Extra Strength) 500 MG tabletIndication s:Right flank pain,Right lower quadrant pain Take 2 tablets (1,000 mg) by mouth every 8 (eight) hours if needed for mild pain for up to 10 days. 30 tablet 06/20/20 25 025 Active Problems Problem Noted Date Diagnosed Date Cervical cancer screening 06/26/2025 Assessment & Plan (06/26/2025 10:36 AM EDT): 60 y.o. here for cervical cancer screening. Will continue monitoring following ASCCP guidelines. Acute right-sided low back pain with right-sided [...] Gentle stretching Short course of flexeril, I certified genetic counselor about side effect somnolence Acetaminophen [...] Encounters Date Type Department Care Team Description 07/11/2025 Orders Only GENERIC EXTERNAL DATA DEPARTMENT Provider, Generic External Data 07/09/2025 11:30 AM EDT Clinical Support [facility] [address] [place] [address] Arianna Gutierrez RN Benign hypertension 07/09/2025 Travel 07/04/2025 Results Follow-Up [facility] [address] [place] [address] Ann Velez RN CBC auto differential, Basic Metabolic Panel, C-reactive Protein, Sed Rate by Charline Dhillon 06/27/2025 Orders Only [facility] [address] [place] [address] Hodan Hanna MD Right flank pain (Primary Dx); Right lower quadrant pain 06/27/2025 Telephone [employer] [address] [place] [phone] ABDOMEN/PELVIS ORDER 06/26/2025 Results Follow-Up [facility] [address] [facility] [place] [phone] Lauren Amaral MD Pap Smear, HPV High Risk with Reflex to Subtypes 06/20/2025 2:00 PM EDT Office Visit [facility] [address] [place] [address] Hodan Hanna MD Right flank pain (Primary Dx); Right lower quadrant pain 06/20/2025 Travel 06/19/2025 10:20 AM EDT Procedure Visit [facility] [address] [place] [address] Lauren Amaral MD Cervical cancer screening (Primary Dx); Screening for lung cancer; Encounter for immunization 06/19/2025 Telephone [facility] [address] [place] [address] Heena Abbasi MD Appointment Request 06/19/2025 Travel 06/18/2025 Telephone [facility] [address] [place] [address] Heena Abbasi MD chart prep 06/13/2025 Orders Only GENERIC EXTERNAL DATA DEPARTMENT Provider, Generic External Data 05/24/2025 Telephone [facility] [address] [facility] [place] [address] Heena Abbasi MD 05/23/2025 10:15 AM EDT Office Visit [facility] [address] [place] [address] Heena Abbasi MD Benign hypertension (Primary Dx); Hypercholesterolemia; Chronic atrial fibrillation (CMS/HCC); Insomnia, unspecified type; Acute bilateral low back pain without sciatica; Encounter for annual wellness visit; Cerebrovascular accident (CVA), unspecified mechanism (CMS/HCC) 05/23/2025 Refill [facility] [address] [facility] [place] [address] Heena Abbasi MD 05/23/2025 Travel 05/22/2025 Telephone [facility] [address] [place] [address] Heena Abbasi MD Chart Prep 05/16/2025 Orders Only GENERIC EXTERNAL DATA DEPARTMENT Provider, Generic External Data 05/15/2025 Patient Outreach [facility] [address] [place] [address] Heena Abbasi MD Pre-visit Planning (SDOH screening negative and Tobacco screening negative) 05/10/2025 9:00 AM EDT Office Visit [facility] ADULT DENTAL [address] [place] [address] Ravi Neri 05/08/2025 Results Follow-Up [facility] [address] [place] [address] Heena Abbasi MD BI Mammogram Screening Tomosynthesis Bilateral 05/03/2025 10:00 AM EDT Office Visit [facility] [address] [place] [address] Ravi Neri 04/18/2025 Orders Only GENERIC EXTERNAL [...] Pulse 88 07/09/2025 11:49 AM EDT Temperature 36.8 C (98.2 F) 06/20/2025 [...] Description 08/06/2025 1:15 PM EST Office Visit [facility] [address] [place] [address] Lauren Amaral MD [address] [place] [address] Health Maintenance Due Date Last Done Comments CT Colonography 1965 Colonoscopy 1965 FIT 1965 HIV Screening 1965 Sigmoidoscopy 1965 Hepatitis C Screening 02/11/1982 Zoster Vaccines (2 of 2) 07/30/2022 06/04/2022 RSV Patients and Patients Aged 60 years or older (1 - Risk 60-74 years 1-dose series) 2024 FOBT 01/10/2025 01/11/2024 COVID-19 Vaccine ( season) 2025 11/13/2022, 01/02/2022, 02/20/2021, Additional history exists Dental Oral Exam 05/28/2025 11/24/2024, , 07/29/2022 Dental Prophylaxis 05/28/2025 11/24/2024, 0 12/14/2023, 07/29/2022 Lung Cancer Screening 06/26/2025 Dental X-Ray: Bitewings 11/25/2025 11/25/19, 12/14/2023, 07/29/2022 Mammogram 05/03/2026 05/03/2025, 08/0 09/2023, 04/06/2023, Additional history exists SDOH Screening 05/15/2026 05/15/2025 Alcohol/Substance Use Screening 05/23/2026 05/23/2025 Depression Screening 05/23/2026 05/23/2025, 05/23/20 25 Disability Screening 05/23/2026 05/23/2025 Tobacco Screening 06/20/2026 06/20/2025 Dental X-Ray: Full Mouth 12/14/2026 12/14/2023, 03/0 12/2018 Colorectal Cancer Screening 01/10/2027 FIT DNA/Cologuard 01/10/2027 01/11/2024 DTaP/Tdap/Td Vaccines (2 - Td or Tdap) 11/20/2027 11/19/2017, 07/25/2001 Lipid Panel 05/23/2030 05/23/2025, 01/19, 02/09/2022, Additional history exists Cervical Cancer Screening 06/19/2030 HPV/Cotest 06/19/2030 06/19/2025 Pap Smear 06/19/2030 06/19/2025 Hepatitis B Vaccines Completed 11/03/2002, 07/25/2001, 05/20/2000 [...] Comments PROTHROMBIN TIME WHOLE BLD POC Routine 07/11/2025 10:21 AM EDT ~PT, ~INR - ANTI COAG CLINIC Routine 07/11/2025 10:21 AM EDT SED RATE BY MODIFIED WESTERGREN Routine 06/20/2025 2:52 PM EDT Right flank pain Right lower quadrant pain C-REACTIVE PROTEIN Routine 06/20/2025 2: 52 PM EDT Right flank pain Right lower quadrant pain BASIC METABOLIC PANEL Routine 06/20/2025 2:52 PM EDT Right flank pain CBC WITH AUTO DIFFERENTIAL Routine 06/20/2025 2:52 PM EDT Right flank pain HPV DNA, LOW/HIGH RISK Routine 06/19/2025 11:53 AM EDT Cervical cancer screening PAP SMEAR Routine 06/19/2025 12:00 AM EDT Cervical cancer screening PROTHROMBIN TIME WHOLE BLD POC Routine 06/13/2025 [...] COAG CLINIC Routine 04/18/2025 10:16 AM EDT PROPHYLAXIS - ADULT Routine 11/24/2024 [...] * (ABNORMAL) PROTHROMBIN TIME WHOLE BLD POC (07/11/2025 10:21 AM EDT) Only the most recent of4 resultswithin the time period is included. Protime 32.8(H) 11.1 - 13.5 sec [facility] 07/11/2025 10:2 1 AM EDT 07/11/2025 10:23 AM EDT us Generic External Data Provider LAB BLOOD ORDERAB LES Final Result [facility] [address] [place] [phone] * (ABNORMAL) ~PT, ~INR - ANTI COAG CLINIC (07/11/2025 10:21 AM EDT) Only the most recent of4 resultswithin the time period is included. Pathologist [facility] Prothrombin Time INR 2.7(H) 0.9 - 1.1 [facility] Comment:METER #: [id number] TERNATIONAL NORMALIZED RATIO (INR) REFERENCE RANGES Reference RangeFor patients not on anticoagulant therapy: 0.9 - 1.1INR ranges for oral anticoagulanttherapy:For prevention and treatment of venous thrombosis and pulmonary embolism: 2.0 - 3.0For acute myocardial infarction with aspirin therapy: 2.0 - 3.0For acute myocardial infarction without aspirin therapy: 3.0 - 4.0For patients with mechanical prosthetic heart valves: 2.5 - 3.5 07/11/2025 10:2 1 AM EDT 07/11/2025 10:23 AM EDT us Generic External Data Provider LAB BLOOD ORDERAB LES Final Result Performing Organization Address City/State/[facility] Co de Phone Number [facility] [address] [place] [phone] * (ABNORMAL) CBC auto differential (06/20/2025 2:52 PM EDT) [facility] White Blood Count 9.0 4.8 - 10.8 X10*3/uL [facility] Red Blood Count 4.57 4.20 - 5.50 X10*6/uL [facility] Hemoglobin 10.3(L) 12.0 - 16.0 g/dl [facility] Hematocrit 33.8(L) 37.0 - 47.0 % [facility] Mean Corpuscular Volume 74.0(L) 80.0 - 98.0 fL [facility] Mean Corpuscular Hemoglobin 22.5(L) 27.0 - 33.0 pg [facility] Mean Corpuscular HGB Conc 30.5(L) 31.0 - 35.0 g/dl [facility] Red Cell Distribution Width 20.1(H) 11.0 - 16.0 % [facility] Platelet Count 599(H) 160 - 400 X10*3/uL [facility] Mean Platelet Volume 9.3(L) 9.4 - 12.3 fL [facility] Neutrophils Percent Auto 60.0 45 - 73 % [facility] Imm Gran Pct Auto 0.3 0.0 - 0.4 % [facility] Lymphocytes Percent Auto 27.0 20 - 40 % [facility] Monocytes Percent Auto 9.9 2 - 11 % [facility] Eosinophils Percent Auto 2.2 0 - 4 % [facility] Basophils Percent Auto 0.6 0 - 2 % [facility] NRBC Pct Auto 0.0 0.0 - 0.2 /100WBC [facility] Neutrophils Absolute Auto 5.4 2.0 - 8.3 x10*3/uL [facility] Imm Gran Abs Auto 0.03 0.00 - 0.03 X10*3/uL [facility] Lymphocytes Absolute Auto 2.4 1.2 - 4.9 X10*3/uL [facility] Monocytes Absolute Auto 0.9 0.1 - 1.2 X10*3/uL [facility] Eosinophils Absolute Auto 0.2 0.0 - 0.4 X10*3/uL [facility] Basophils Absolute Auto 0.1 0.0 - 0.2 X10*3/uL [facility] NRBC Abs Auto 0.000 0.0 - 0.012 X10*3/uL [facility] Blood Venous blood specimen / Unknown 06/20/2025 2:52 PM EDT 06/20/2025 6:09 PM EDT us Hodan Hanna MD LAB BLOOD ORDERABLES Final Result [facility] [address] [place] [phone] * (ABNORMAL) Sed Rate by Modified Alejo (06/20/2025 2:52 PM EDT) Erythrocyte Sedimentation Rate 43(H) 0 - 20 MM/HR [facility] Comment:Patients with polycy themia and many hemoglobin abnormalitiesmay have depressed sed rates whereas patients with anemiamay have elevated sed rates. Blood Venous blood specimen / Unknown 06/20/2025 2:52 PM EDT 06/20/2025 6:09 PM EDT us Hodan Hanna MD LAB BLOOD ORDERABLES Final Result Performing Organization Address [facility] Co de Phone Number [facility] [address] [place] [phone] * (ABNORMAL) C-reactive Protein (06/20/2025 2:52 PM EDT) [facility] C Reactive Protein 1.75(H) < or = 0.50 mg/dL [facility] Blood Venous blood specimen / Unknown 06/20/2025 2:52 PM EDT 06/20/2025 6:09 PM EDT us Hodan Hanna MD LAB BLOOD ORDERABLES Final Result Performing Organization Address [facility] Phone Number [facility] [address] [place] [phone] * (ABNORMAL) Basic Metabolic Panel (06/20/2025 2:52 PM EDT) Only the most recent of2 resultswithin the time period is included. [facility] Sodium 138 135 - 145 mmol/L [facility] Potassium 4.3 3.3 - 5.1 mmol/L [facility] Chloride 108 96 - 108 mmol/L [facility] Carbon Dioxide 23 22 - 29 mmol/L [facility] Anion Gap 11(L) 12 - 20 [facility] Urea Nitrogen (BUN) 19(H) 9 - 16 mg/dL [facility] Creatinine, Serum 0.85 0.5 - 1.4 mg/dL [facility] Estimated Glomerular Filt Rate >60 [facility] Comment:Chronic Kidney Disea se: Estimated GFR < 60 mL/min/1.27e7Mbivjr Kidney Disease: Estimated GFR < 15 mL/min/1.73m2 Glucose 77 60 - 115 mg/dL [facility] Calcium 8.9 8.4 - 10.2 mg/dL [facility] Blood Venous blood specimen / Unknown 06/20/2025 2:52 PM EDT 06/20/2025 6:09 PM EDT us Hodan Hanna MD LAB BLOOD ORDERABLES Final Result Performing Organization Address [facility]/ZIP Co de Phone Number [facility] [address] [place] [phone] * HPV High Risk with Reflex to Subtypes (06/19/2025 11:53 AM EDT) HPV High Risk Negative Negative [facility] HPV Genotype 16 Negative Negative [facility] HPV Genotype 18 Negative Negative [facility] Comment:HPV testing performe d at [facility] (CLIA#[id number]), [address] [place] [address].Testing for HPV was performed using the Donya DAE 6800system. The presence of HPV in the female genital tract isassociated with a number of diseases, including cervicalcarcinoma. The HPV DNA high risk pool tests for HPV 31, 33,35, 39, 45, 51, 52, 56, 58, 59, 66 and 68. The testing forHPV 16 and 18 genotypes has also been performed. A positiveresult indicates detection of nucleic acid sequences fromone or more subtypes, whereas a negative result indicatessuch sequences were not detected. Pap Vial 06/19/2025 11:5 3 AM EDT 06/19/2025 2:56 PM EDT us Lauren Amaral MD LAB BLOOD ORDERABLES Final Re sult Performing Organization Address [facility]/ZIP Co de Phone Number [facility] [address] [place] [address] [phone] * Pap Smear (06/19/2025 12:00 AM EDT) Swab Cervical swab / Unknown 06/19/2025 06/20/2025 6:10 AM EDT [facility] - 06/22/2025 10:53 AM EDT ----- ------- Name: Omaira Holly Age/Sex: 60/F : 1965 Unit#: [id number] Attend Dr: Lauren Amaral MD Re06/19/25 Status: DEP REF Location: HO.LNP Disch: ----- ------- SPEC : [id number] RECD: 06/20/25 STATUS: PERCYRobert SHIRLEY NUM: [id number] ALF: 06/19/25-[address]: Lauren mAaral MD ENTERED: 06/20/25 SP TYPE: Pap Smr OTHR : ORDERED: Pap Smear Interpretation Satisfactory for evaluation. Negative for intraepithelial lesion or malignancy. No endocervical cells seen. HPV High Risk: Negative HPV Genotyping 16: Negative HPV Genotyping 18: Negative Clinical Information LMP: Previous PAP test: Unk Other surgery: Other history: Material Received ThinPrep-Cervical ----- ------- Signed (signature on file) PAOLA Peñaloza (ASCP) 06/22/25 1053 ----- ------- END OF REPORT us Lauren Amaral MD LAB CYTOLOGY ORDERABLES Final Result [facility] [address] [place] [phone] * (ABNORMAL) Urinalysis, Complete, with Reflex to Culture (05/23/2025 10:57 AM EDT) Color Urine Yellow [facility] Appearance Urine Clear [facility] PH 6.0 5.0 - 9.0 [facility] Glucose Urine UA Negative Negative mg/dL [facility] Urine Blood Trace(A) Negative [facility] Specific [place] - Urine 1.015 1.005 - 1.025 [facility] Urine Protein Negative Neg-Trace mg/dL [facility] Urine Ketones Negative Negative mg/dL [facility] Nitrite Urine Negative Negative [facility] Leukocyte Esterase Urine Negative Negative [facility] RBC Urine 0-2 0 - 2 /HPF [facility] Urine WBC 0-5 0 - 5 /HPF [facility] Urine Squamous Epithelial Cell 3-5 0 - 2 /HPF [facility] Urine Bacteria Trace None Seen [facility] Hyaline Casts, Urine 0-2 0 - 2 /LPF [facility] Urine 05/23/2025 10:5 7 AM EDT 05/23/2025 1:57 PM EDT Narrative [facility] - 05/23/2025 2:18 PM EDT [id number], Clean Catch Heena Abbasi MD LAB URINE ORDERABLES Final Resul t Performing Organization Address City/[facility] Co de Phone Number [facility] [address] [place] [phone] * (ABNORMAL) Hepatic Function Panel (05/23/2025 10:52 AM EDT) Bilirubin, Total 0.2 0.0 - 1.0 mg/dL [facility] Bilirubin, Direct <0.2 0.0 - 0.5 mg/dL [facility] Aspartate Amino Transferase 25 5 - 31 U/L [facility] Alanine Aminotransferase 14 0 - 31 U/L [facility] Total Protein 8.3(H) 6.5 - 8.0 g/dL [facility] Albumin Level 4.4 3.5 - 5.0 g/dL [facility] Alkaline Phosphatase 94 39 - 117 U/L [facility] Blood Venous blood specimen / Unknown 05/23/2025 10:52 AM EDT 05/23/2025 1:54 PM EDT Heena Abbasi MD LAB BLOOD ORDERABLES Final Resul t Performing Organization Address [facility]/ZIP Co de Phone Number [facility] [address] [place] [phone] * (ABNORMAL) Lipid Panel, Standard (05/23/2025 10:52 AM EDT) Triglycerides 76 <150 mg/dL [facility] Comment:Desirable Triglyceri de: less than 150 mg/dLBorderline High Triglyceride 150-199 mg/dLHigh Triglyceride: 200-499 mg/dLVery High Triglyceride: greater than or equal to 5OO mg/dL Cholesterol 184 <200 mg/dL [facility] Comment:Desirable Cholestero l: less than 200 mg/dLBorderline High Cholesterol: 200-239 mg/dLHigh Cholesterol: greater than 239 mg/dL LDL Cholesterol Calculated 107(H) <100 mg/dL [facility] Comment:Desirable LDL: less than 100 mg/dLNear Optimal/Above Optimal LDL: 110- 129 mg/dLBorderline High LDL: 130-159 mg/dLHigh LDL: 160-189 mg/dLVery High LDL: greater than or equal to 190 mg/dL HDL Cholesterol 62 >40 mg/dL [facility] Comment:Desirable HDL: great er than 40 mg/dL Note: This HDL assay may give artificially low results in patients with liver disease. Blood Venous blood specimen / Unknown 05/23/2025 10:52 AM EDT 05/23/2025 1:54 PM EDT Heena Abbasi MD LAB BLOOD ORDERABLES Final Resul t [facility] [address] [place] [address] [phone] * BI Mammogram Screening Tomosynthesis Bilateral (05/03/2025 9:25 AM EDT) Anatomical Region Laterality Modality Breast Bilateral Mammography 05/03/2025 9:25 AM EDT Narrative 05/08/2025 11:51 AM EDT [facility] [address] [place] [address] Mammography Report Signed Patient: Omaira Holly MR#: [id number] : 1965 Acct:[id number] Age/Sex: 60 / F ADM Date: 05/03/25 Loc: [facility] Attending Dr: Heena Abbasi MD Ordering Physician: Heena Abbasi MD Results: 1Negati ve Date of Service: 05/03/25 Follow Up: 1 Year From Orig inal Mammogram Procedure(s): MM tomosynthesis screening BI Accession Number(s): [id number] cc: Heena Abbasi MD EXAMINATION: MM SCREENING [...] 05/08/25 1148 DD/ 4 TD/TT: 05/03/25 0945 Drywall Foreman: Procedure Note Donotuseinterpreter, Image - 05/08/2025 [facility] [address] [place] [address] Mammography Report Signed Patient: Omaira HollyMR#: [id number] : 1965Acct:[id number] Age/Sex: 60 / FADM Date: 05/03/25 Loc: HO.MAMMO Attending Dr: Heena Abbasi MD Ordering Physician: Heena Abbasi MDResults: 1Negati ve Date of Service: 05/03/25Follow Up: 1 Year From Orig inal Mammogram Procedure(s): MM tomosynthesis screening BI Accession Number(s): [id number] cc: Heena Abbasi MD EXAMINATION: MM SCREENING [...] 05/08/25 1148 DD/ 0925 TD/TT: 05/03/25 0945 Drywall Foreman: Heena Abbasi MD IMG BI PROCEDURES Final Result * Cologuard?? colon cancer screening (01/11/2024 9:45 AM EDT) Cologuard Result Negative Negative 01/20/20 24 12:00 PM EDT [facility] (CLIA #:[id number]) Comment: NEGATIVE TEST RESULT. A negative Cologuard [...] Dobson et al, N Engl J Med 2014;370(14):1809-5780) The normal value (reference range) for this assay is negative. COLOGUARD RE-SCREENING RECOMMENDATION: Periodic colorectal cancer screening is an important part of preventive healthcare for asymptomatic individuals at average risk for colorectal cancer. Following a negative Cologuard result, the [place] [employer] Society and U.S. Multi-Society Task Force screening guidelines recommend a Cologuard re-screening interval of 3 years. References: [place] [employer] Guideline for Colorectal Cancer Screening: https://www.cancer.org/cancer/bywjr-lsbino-szewov/afybhmxjm-ctblxxozw-tinsibz/ac s-rec ommendations.html.; Dane DK, Feroz GALE, Lauro McdanielK, Colorectal Cancer Screening: Recommendations for Physicians and Patients from the U.S. Multi-Society Task Force on Colorectal Cancer Screening , Am J Gastroenterology 2017; 112:3973-1422. TEST DESCRIPTION: Composite algorithmic analysis of stool [...] (Mando Sidhu al, N Engl J Med 2014;370(14):3997-4557.) Cologuard may produce a false negative or false positive result (no colorectal cancer or precancerous polyp present at colonoscopy follow up). A negative Cologuard test result does not guarantee the absence of CRC or advanced adenoma (pre-cancer). The current Cologuard screening interval is every 3 years. ([place] [employer] and U.S. Multi-Society Task Force). Cologuard performance data in a 10,000 patient pivotal study using colonoscopy as the reference method can be accessed at the following location: www.[employer]/results. Additional description of the Cologuard test process, warnings and precautions can be found at www.[employer] Systemsrd.com. Stool specimen (specimen) 01/11/2024 9:45 AM EDT 01/13/2024 10:47 AM EDT us Heena Abbasi MD LAB MOLECULAR DIAGNOSTICS MARY [place]ALLEY Final Result [facility] (CLIA #:[id number]) [address] . [place] [address], from Last 3 Months or Most Recently Relevant to Health Maintenance [place] [address] C3 DENTAL-[facility] MEDICAID STAND ADULT DENTAL-[facility] MEDICAID STAND ADULT Care Teams Process Engineering Technician Relationship Specialty Start Date End Date Heena Abbasi MD [address] [place] [address] PCP - General Family Medicine 09/05/12 Eli Higuera Manager Case ManagementLaboratory Technician 03/17/24 Eli Higuera Manager Case ManagementLaboratory Technician 10/05/24 Eli Higuera Manager Case ManagementLaboratory Technician 02/22/25
--- OUTSIDE RECORDS SUMMARY | 2025-07-11 12:05 | XMS_ITS | Encounter Summary ---
Author Organization [employer] Address 75 [facility] 7t [place] [address] Care Team Providers Care Computer Operations Supervisor Name Role Phone Heena Abbasi MD Primary Care Provider [phone] Encounter Details Date Type Department Care Team ([facility] Contact Info) Description 06/26/2025 Results [facility]S 505 [place], [place] [phone] Lauren Amaral MD 505 [place] [address] Pap Smear, HPV High Risk with Reflex to Subtypes Social History Tobacco Use Types Packs/Day Years [...] Description 08/06/2025 1:15 PM EST [facility] 505 [place] [address] Lauren Amaral MD 505 [place] [address] documented as of this encounter Visit Diagnoses Not on filedocumented in this encounter Additional Health Concerns Assessment Noted Time PHQ-9 Depression Total Score: 7 05/23/20 25 10:19 AM EDT documented as of this encounter Care Teams Computer Operations Supervisor Relationship Specialty Start Date End Date Heena Abbasi MD [address] [place] [address] PCP - General Family Medicine 09/05/12 Eli Higuera Certified Fraud ExaminerHealth Coordinator 03/17/24 Eli Higuera Certified Fraud ExaminerHealth Coordinator 10/05/24 Eli Higuera Certified Fraud ExaminerHealth Coordinator 02/22/25 documented as of this encounter
--- OUTSIDE RECORDS SUMMARY | 2025-07-11 12:05 | XMS_ITS | Encounter Summary ---
Author Organization [employer] Address 75 [facility] 7t [place] [address] Care Team Providers Care General Supervisor Name Role Phone Heena Abbasi MD Primary Care Provider [phone] Encounter Details Date Type Department Care Team (Late st Contact Info) Description 02/29/2024 Telephone C [facility] [address] [place] [address] Perri Noble, SOREN Social History Tobacco Use [...] Description 08/06/2025 1:15 PM EST Office Visit [facility] MED & PEDS 505 [place] [address] Lauren Amaral MD 505 [place] [address] documented as of this encounter Visit Diagnoses Not on filedocumented in this encounter Additional Health Concerns Assessment Noted Time PHQ-9 Depression Total Score: 5 12/31/19 24 10:57 AM EDT documented as of this encounter Care Teams General Supervisor Relationship Specialty Start Date End Date Heena Abbasi MD [address] [place] [address] PCP - General Family Medicine 09/05/12 Eli Higuera Telecom SpecialistSvp Research And Strategic Analysis 03/17/24 Eli Higuera Telecom SpecialistSvp Research And Strategic Analysis 10/05/24 Eli Higuera Telecom SpecialistSvp Research And Strategic Analysis 02/22/25 documented as of this encounter
--- OUTSIDE RECORDS SUMMARY | 2025-07-11 12:05 | XMS_ITS | Encounter Summary ---
Author Organization [employer] [facility] Address 75 [facility] 7t [place] [address] Care Team Providers Care Cost Engineer Name Role Phone Heena Abbasi MD Primary Care Provider [phone] Encounter Details Date Type Department Care Team (Latest Contact Info) Description 11/21/2018 Abstract [facility] CONVERSIONS Dental, Provider, DDS Social History Tobacco [...] Description 08/06/2025 1:15 PM EST Office Visit [facility] MED & PEDS 505 [place] [address] Lauren Amaral MD 505 [place] [address] documented as of this encounter Visit Diagnoses Not on filedocumented in this encounter Care Teams Cost Engineer Relationship Specialty Start Date End Date Heena Abbasi MD [address] [place] [address] PCP - General Family Medicine 09/05/12 Eli Higuera Healthcare Business AnalystTibco Developer 03/17/24 Eli Higuera Healthcare Business AnalystTibco Developer 10/05/24 Eli Higuera Healthcare Business AnalystTibco Developer 02/22/25 documented as of this encounter
--- OUTSIDE RECORDS SUMMARY | 2025-07-11 12:06 | XMS_ITS | Encounter Summary ---
Author Organization [employer] [facility] Address 75 [facility] 7t [place] [address] Care Team Providers Care Hot Plate Plywood Press Offbearer Name Role Phone Heena Abbasi MD Primary Care Provider [phone] Reason for Visit * Reason Onset Date Comments pre tx medication 02/16/2023 Encounter Details Date Type Department Care Team (Late Contact Info) Description 02/16/2023 Telephone [facility] ADULT DENTAL [address] [place], [place] [phone] Socorro Auguste DDS pre tx medication Social [...] Care Team ([facility] Contact Info) Description 08/06/2025 1:15 PM EST Office Visit [facility] MED & PEDS 505 [place] [address] Lauren Amaral MD [address] [place] [address] documented as of this encounter Visit Diagnoses Not on filedocumented in this encounter Care Teams Hot Plate Plywood Press Offbearer Relationship Specialty Start Date End Date Heena Abbasi MD [address] [place] [address] PCP - General Family Medicine 09/05/12 Eli Higuera Pallet AssemblerElectronic Data Processing Auditor 03/17/24 Eli Higuera Pallet AssemblerElectronic Data Processing Auditor 10/05/24 Eli Higuera Pallet AssemblerElectronic Data Processing Auditor 02/22/25 documented as of this encounter
--- OUTSIDE RECORDS SUMMARY | 2025-07-11 12:06 | XMS_ITS | Encounter Summary ---
Author Organization [employer] Address 75 [facility] 7t [place] [address] Care Team Providers Care Steel Layout Worker Name Role Phone Heena Abbasi MD Primary Care Provider [phone] Reason for Visit * Reason Onset Date Comments Med Refill 01/31/2025 Encounter Details Date Type Department Care Team ([facility] st Contact Info) Description 01/31/[address] [facility] MEDICINE [address] [place] [address] Heena Abbasi MD [address] [place], [place] [phone] Med Refill Social History Tobacco Use Types [...] 10:42 AM EDT Medication was sent to [facility] #[id number] on 11/14/24 #90 with 1 refill. * Telephone Encounter - Jeannie Jaimes - 01/31/2025 10:28 AM EDT TC from pt requesting medication refill. Medications needing refill : pantoprazole (ProtoNix) 20 MG EC tablet To be sent to: [facility]/pharmacy #[id number] - [place], [place] - [address] documented in this encounter Plan of Treatment Upcoming Encounters Date Type Department Care Team (Late st Contact Info) Description 08/06/2025 1:15 PM EST Office Visit [facility] MED & PEDS 505 [place] [address] Lauren Amaral MD 505 [place] [address] documented as of this encounter Visit Diagnoses Not on filedocumented in this encounter Additional Health Concerns Assessment Noted Time PHQ-9 Depression Total Score: 5 12/31/19 24 10:57 AM EDT documented as of this encounter Care Teams Steel Layout Worker Relationship Specialty Start Date End Date Heena Abbasi MD [address] [place] [address] PCP - General Family Medicine 09/05/12 Eli Higuera Direct Mail ClerkElectrotype Finisher 03/17/24 Eli Higuera Direct Mail ClerkElectrotype Finisher 10/05/24 Eli Higuera Direct Mail ClerkElectrotype Finisher 02/22/25 documented as of this encounter
--- OUTSIDE RECORDS SUMMARY | 2025-07-11 12:06 | XMS_ITS | Encounter Summary ---
Author Organization [employer] Address 75 [facility] 7t [place] [address] Care Team Providers Care Metal Fabricator Helper Name Role Phone Heena Abbasi MD Primary Care Provider [phone] Encounter Details Date Type Department Care Team (Late Contact Info) Description 03/05/2023 Telephone [facility] ADULT DENTAL 505 [place], [place] [phone] Anthony Arnold [address] [place] [address] Social History Tobacco Use Types Packs/Day Years [...] AM EDT Patient called in with her INCOME TAX PREPARER from her coumadin clinic to report INR number of 3.2. [facility] that number was too high and patient will not be able to be seen. Informed patient to call next week to check schedule for new appt date that will coincide with a new coumadin INR apptdate as well. Patient understood DR documented in this encounter Plan of Treatment Upcoming Encounters Date Type Department Care Team ([facility] Contact Info) Description 08/06/2025 1:15 PM EST Office Visit [facility] MED & PEDS 505 [place] [address] Lauren Amaral MD [address] [place] [address] documented as of this encounter Visit Diagnoses Not on filedocumented in this encounter Care Teams Metal Fabricator Helper Relationship Specialty Start Date End Date Heena Abbasi MD [address] [place] [address] PCP - General Family Medicine 09/05/12 Eli Higuera Bricklayer HelperVp Analysis 03/17/24 Eli Higuera Bricklayer HelperVp Analysis 10/05/24 Eli Higuera Bricklayer HelperVp Analysis 02/22/25 documented as of this encounter
--- OUTSIDE RECORDS SUMMARY | 2025-07-11 12:06 | XMS_ITS | Encounter Summary ---
Author Organization [employer] Address 75 [facility] 7t [place] [address] Care Team Providers Care Buffing Machine Tender Name Role Phone Heena Abbasi MD Primary Care Provider [phone] Reason for Visit * Reason Onset Date Comments Med Refill 06/09/2023 Encounter Details Date Type Department Care Team ([facility] st Contact Info) Description 06/09/2023 Telephone [facility] CHC MED & PEDS [address] [place], [place] [phone] Heena Abbasi MD 505 [place] [address] Med Refill Social History Tobacco Use Types [...] message pt has refills at pharmacy . Shaft Repairer contacted pharmacy to confirm . [facility] had a system error that was corrected and patient will be picking up script later today . * Telephone Encounter - Mari Miller LPN - 06/09/2023 11:54 AM EDT 90 day supply was sent to [facility] #[id number] on 12/29/22 with 3 refills. * Telephone Encounter - Brianne Wade - 06/09/2023 11:27 AM EDT Tc from pt requesting medication refill on gemfibrozil (Lopid) 600 MG tablet to be sent to [facility]/pharmacy #[id number] - [place], [place] - [address] documented in this encounter Plan of Treatment Upcoming Encounters Date Type Department Care Team (Late st Contact Info) Description 08/06/2025 1:15 PM EST Office Visit [facility] MED & PEDS 505 [place] [address] Lauren Amaral MD 505 [place] [address] documented as of this encounter Visit Diagnoses Not on filedocumented in this encounter Care Teams Buffing Machine Tender Relationship Specialty Start Date End Date Heena Abbasi MD [address] [place] [address] PCP - General Family Medicine 09/05/12 Eli Higuera Safety Relief Valve TechnicianClerical Supervisor 03/17/24 Eli Higuera Safety Relief Valve TechnicianClerical Supervisor 10/05/24 Eli Higuera Safety Relief Valve TechnicianClerical Supervisor 02/22/25 documented as of this encounter
--- OUTSIDE RECORDS SUMMARY | 2025-07-11 12:06 | XMS_ITS | Encounter Summary ---
Author Organization [employer] Address 75 [facility] 7t [place] [address] Care Team Providers Care Pesticide Use Medical Coordinator Name Role Phone Heena Abbasi MD Primary Care Provider [phone] Encounter Details Date Type Department Care Team (Late st Contact Info) Description 07/11/2025 Orders Only GENERIC EXTERNAL DATA [...] t he electric, gas, oil or water [employer] threatened to shut off services in your [...] Description 08/06/2025 1:15 PM EST Office Visit [facility] CHC MED & PEDS 505 [place] [address] Lauren Amaral MD 505 [place] [address] documented as of this encounter Procedures Procedure Name Priority Date/Time Associated Diagnosis Comments PROTHROMBIN TIME WHOLE BLD POC Routine 07/11/2025 10:21 AM EDT ~PT, ~INR - ANTI COAG CLINIC Routine 07/11/2025 10:21 AM EDT documented in this encounter Results * (ABNORMAL) PROTHROMBIN TIME WHOLE BLD POC (07/11/2025 10:21 AM EDT) Protime 32.8(H) 11.1 - 13.5 sec [facility] 07/11/2025 10:2 1 AM EDT 07/11/2025 10:23 AM EDT us Generic External Data Provider LAB BLOOD ORDERAB LES Final Result [facility] [address] [place] [address] [phone] * (ABNORMAL) ~PT, ~INR - ANTI COAG CLINIC (07/11/2025 10:21 AM EDT) Prothrombin Time INR 2.7(H) 0.9 - 1.1 [facility] Comment:METER #: [id number] TERNATIONAL NORMALIZED RATIO (INR) REFERENCE RANGES Reference [...] Provider LAB BLOOD ORDERAB LES Final Result [facility] [address] [place] [phone] documented in this encounter Visit Diagnoses Not on filedocumented in this encounter Additional Health Concerns Assessment Noted Time PHQ-9 Depression Total Score: 7 05/23/20 25 10:19 AM EDT documented as of this encounter Care Teams Pesticide Use Medical Coordinator Relationship Specialty Start Date End Date Heena Abbasi MD [address] [place] [address] PCP - General Family Medicine 09/05/12 Eli Higuera Meter Reader InspectorEmbosser Operator 03/17/24 Eli Higuera Meter Reader InspectorEmbosser Operator 10/05/24 Eli Higuera Meter Reader InspectorEmbosser Operator 02/22/25 documented as of this encounter
--- OUTSIDE RECORDS SUMMARY | 2025-07-11 12:06 | XMS_ITS | Encounter Summary ---
Author Organization [employer] Address 75 [facility] 7t [place] [address] Care Team Providers Care Aeronautical Inspector Name Role Phone Heena Abbasi MD Primary Care Provider [phone] Encounter Details Date Type Department Care Team (Late st Contact Info) Description 12/31/2023 Orders Only [facility] CHC MED & PEDS 505 [place], [place] [phone] Heena Abbasi MD 505 [place], [place] [phone] Social History Tobacco Use Types Packs/Day Years [...] usual. Not at all 12/31/2023 10:57 AM Vee Olmstead [place] Thoughts that you would be better off or hurting yourself in some way Not at all 12/31/2023 10:57 AM Lia Olmstead [place] Patient Health Questionnaire-9 Score 5 12/31/2023 10:57 AM FERNANDOT Thor Daigle [place] documented as of this encounter Plan of Treatment Upcoming Encounters Date Type Department Care Team (Late st Contact Info) Description 08/06/2025 1:15 PM EST Office Visit [facility] CHC MED & PEDS [address] [place] [address] Lauren Amaral MD 505 [place] [address] documented as of this encounter Visit Diagnoses Not on filedocumented in this encounter Additional Health Concerns Assessment Noted Time PHQ-9 Depression Total Score: 5 12/31/19 24 10:57 AM EDT documented as of this encounter Care Teams Aeronautical Inspector Relationship Specialty Start Date End Date Heena Abbasi MD [address] [place] [address] PCP - General Family Medicine 09/05/12 Eli Higuera Numerical Control Machine Tool OperatorSoil Surveyor 03/17/24 Eli Higuera Numerical Control Machine Tool OperatorSoil Surveyor 10/05/24 Eli Higuera Numerical Control Machine Tool OperatorSoil Surveyor 02/22/25 documented as of this encounter
--- OUTSIDE RECORDS SUMMARY | 2025-07-11 12:06 | XMS_ITS | Encounter Summary ---
Author Organization [employer] [facility] Address 75 [facility] 7t [place] [address] Care Team Providers Care Deputy Controller Name Role Phone Heena Abbasi MD Primary Care Provider [phone] Encounter Details Date Type Department Care Team (Late Contact Info) Description 01/01/2023 Orders Only [facility] MED & PEDS [address] [place] [address] Heena Abbasi MD 505 [place] [address] Muscle spasm Social History Tobacco Use Types [...] Description 08/06/2025 1:15 PM EST Office Visit [facility] MED & PEDS [address] [place] [address] Lauren Amaral MD 505 [place] [address] documented as of this encounter Visit Diagnoses Diagnosis Muscle spasm Spasm of muscle documented in this encounter Care Teams Deputy Controller Relationship Specialty Start Date End Date Heena Abbasi MD [address] [place] [address] PCP - General Family Medicine 09/05/12 Eli Higuera Account Support ManagerTreating Engineer 03/17/24 Eli Higuera Account Support ManagerTreating Engineer 10/05/24 Eli Higuera Account Support ManagerTreating Engineer 02/22/25 documented as of this encounter
--- OUTSIDE RECORDS SUMMARY | 2025-07-11 12:06 | XMS_ITS | Encounter Summary ---
Author Organization [employer] [facility] Address 75 [facility] 7t [place] [address] Care Team Providers Care Commutator Repairer Name Role Phone Heena Abbasi MD Primary Care Provider [phone] Encounter Details Date Type Department Care Team (Late Contact Info) Description 04/05/2023 Orders Only [facility] MED & PEDS [address] [place] [address] Heena Abbasi MD 505 [place] [address] Social History Tobacco Use Types Packs/Day Years [...] Department Care Team (Late Contact Info) Description 08/06/2025 1:15 PM EST Office Visit [facility] MED & PEDS [address] [place] [address] Lauren Amaral MD 505 [place] [address] documented as of this encounter Visit Diagnoses Not on filedocumented in this encounter Care Teams Commutator Repairer Relationship Specialty Start Date End Date Heena Abbasi MD [address] [place] [address] PCP - General Family Medicine 09/05/12 Eli Higuera It Applications ManagerLime Kiln Worker Helper 03/17/24 Eli Higuera It Applications ManagerLime Kiln Worker Helper 10/05/24 Eli Higuera It Applications ManagerLime Kiln Worker Helper 02/22/25 documented as of this encounter
--- OUTSIDE RECORDS SUMMARY | 2025-07-11 12:06 | XMS_ITS | Encounter Summary ---
Author Organization [employer] Address 75 [facility] 7t [place] [address] Care Team Providers Care Cone Treater Name Role Phone Heena Abbasi MD Primary Care Provider [phone] Encounter Details Date Type Department Care Team (Late Contact Info) Description 12/09/2022 Orders Only [facility] MED & PEDS [address] [place] [address] Heena Abbasi MD 505 [place] [address] Social History Tobacco Use Types Packs/Day Years [...] Description 08/06/2025 1:15 PM EST Office Visit [facility] MED & PEDS 505 [place] [address] Lauren Amaral MD [address] [place] [address] documented as of this encounter Visit Diagnoses Not on filedocumented in this encounter Care Teams Cone Treater Relationship Specialty Start Date End Date Heena Abbasi MD [address] [place] [address] PCP - General Family Medicine 09/05/12 Eli Higuera Mime ArtistTmh Teacher 03/17/24 Eli Higuera Mime ArtistTmh Teacher 10/05/24 Eli Higuera Mime ArtistTmh Teacher 02/22/25 documented as of this encounter
--- OUTSIDE RECORDS SUMMARY | 2025-07-11 12:06 | XMS_ITS | Encounter Summary ---
Author Organization [employer] Address 75 [facility] 7t [place] [address] Care Team Providers Care Fan Blade Aligner Name Role Phone Heena Abbasi MD Primary Care Provider [phone] Reason for Visit * Reason Onset Date Comments Referral 07/29/2023 Encounter Details Date Type Department Care Team ([facility] st Contact Info) Description 07/29/2023 Telephone [facility] MEDICINE [address] [place] [address] Heena Abbasi MD [address] [place], [place] [phone] Referral Social History Tobacco Use Types Packs/Day [...] Description 08/06/2025 1:15 PM EST Office Visit [facility] MED & PEDS [address] [place] [address] Lauren Amaral MD 505 [place] [address] documented as of this encounter Visit Diagnoses Not on filedocumented in this encounter Care Teams Fan Blade Aligner Relationship Specialty Start Date End Date Heena Abbasi MD [address] [place] [address] PCP - General Family Medicine 09/05/12 Eli Higuera Alternative Medicine PractitionerGps Field Data Collector 03/17/24 Eli Higuera Alternative Medicine PractitionerGps Field Data Collector 10/05/24 Eli Higuera Alternative Medicine PractitionerGps Field Data Collector 02/22/25 documented as of this encounter
--- OUTSIDE RECORDS SUMMARY | 2025-07-11 12:06 | XMS_ITS | Encounter Summary ---
Author Organization [employer] Address 75 [facility] 7t [place] [address] Care Team Providers Care Rehab Care Assistant Name Role Phone Heena Abbasi MD Primary Care Provider [phone] Encounter Details Date Type Department Care Team (Latest Contact Info) Description 07/09/2025 Travel Social History Tobacco Use Types Packs/Day [...] Description 08/06/2025 1:15 PM EST Office Visit [facility] CHC MED & PEDS [address] [place] [address] Lauren Amaral MD 505 [place] [address] documented as of this encounter Visit Diagnoses Not on filedocumented in this encounter Additional Health Concerns Assessment Noted Time PHQ-9 Depression Total Score: 7 05/23/20 25 10:19 AM EDT documented as of this encounter Care Teams Rehab Care Assistant Relationship Specialty Start Date End Date Heean Abbasi MD [address] [place] [address] PCP - General Family Medicine 09/05/12 Eli Higuera Umbrella Frame MakerManager Front 03/17/24 Eli Higuera Umbrella Frame MakerManager Front 10/05/24 Eli Higuera Umbrella Frame MakerManager Front 02/22/25 documented as of this encounter
--- OUTSIDE RECORDS SUMMARY | 2025-07-11 12:06 | XMS_ITS | Encounter Summary ---
Author Organization [employer] Address 75 [facility] 7t [place] [address] Care Team Providers Care Manager Environmental Health Name Role Phone Heena Abbasi MD Primary Care Provider [phone] Reason for Visit * Reason Onset Date Comments Referral 05/17/2023 Encounter Details Date Type Department Care Team ([facility] st Contact Info) Description 05/17/2023 Telephone [facility] CHC MED & PEDS [address] [place], [place] [phone] Heena Abbasi MD 505 [place] [address] Referral Social History Tobacco Use Types Packs/Day [...] 05/17/2023 10:31 AM EDT Tc from [facility]ie ([facility]) requesting referral for pt. Location: [place] [address], [place] Date: n/a Time: n/a Specialty: aircraft stress analyst documented in this encounter Plan of Treatment Upcoming Encounters Date Type Department Care Team (Late st Contact Info) Description 08/06/2025 1:15 PM EST Office Visit [facility] MED & PEDS [address] [place] [address] Lauren Amaral MD [address] [place] [address] documented as of this encounter Visit Diagnoses Not on filedocumented in this encounter Care Teams Manager Environmental Health Relationship Specialty Start Date End Date Heena Abbasi MD [address] [place] [address] PCP - General Family Medicine 09/05/12 Eli Higuera Job CoachOffset Printing Pressmen 03/17/24 Eli Higuera Job CoachOffset Printing Pressmen 10/05/24 Eli Higuera Job CoachOffset Printing Pressmen 02/22/25 documented as of this encounter
--- OUTSIDE RECORDS SUMMARY | 2025-07-11 12:06 | XMS_ITS | Encounter Summary ---
Author Organization [employer] Address [address] [facility] 7t [place] [address] Care Team Providers Care Project Lead Name Role Phone Heena Abbasi MD Primary Care Provider Reason for Visit * Reason Onset Date Comments Med Refill 03/30/2023 Encounter Details Date Type Department Care Team ([facility] st Contact Info) Description 03/30/2023 Telephone [facility] PEDS [address], [place] [phone] Heena Abbasi MD [address] [place] [address] Med Refill Social History Tobacco Use Types [...] - 03/31/2023 8:41 AM EDT Managed by [facility] coumadin clinic. Noted INR result [...] Description 08/06/2025 1:15 PM EST Office Visit [facility] [address] [place] [address] Lauren Amaral MD [address] [place] [address] documented as of this encounter Visit Diagnoses Not on filedocumented in this encounter Care Teams Project Lead Relationship Specialty Start Date End Date Heena Abbasi MD [address] [place] [phone] PCP - General Family Medicine 09/05/12 Eli Higuera Phone TechnicianGeneral Inspector 03/17/24 Eli Higuera Phone TechnicianGeneral Inspector 10/05/24 Eli Higuera Phone TechnicianGeneral Inspector 02/22/25 documented as of this encounter
--- OUTSIDE RECORDS SUMMARY | 2025-07-11 12:06 | XMS_ITS | Encounter Summary ---
Author Organization [employer] Address [address] [facility] 7t [place] [address] Care Team Providers Care Gas Pumping Station Operator Name Role Phone Heena Abbasi MD Primary Care Provider [phone] Reason for Visit * Reason Onset Date Comments Med Refill 12/30/2022 Encounter Details Date Type Department Care Team ([facility] st Contact Info) Description 12/30/2022 Telephone [facility] MEDICINE [address] [place] [address] Heena Abbasi MD [address] [place], [place] [phone] Med Refill Social History Tobacco Use Types [...] 12/30/2022 12:39 PM EDT Pt managed by [facility] coumadin clinic. Noted INR of 3.0 on [...] Description 08/06/2025 1:15 PM EST Office Visit [facility] MED & PEDS [address] [place] [address] Lauren Amaral MD [address] [place] [address] documented as of this encounter Visit Diagnoses Not on filedocumented in this encounter Care Teams Gas Pumping Station Operator Relationship Specialty Start Date End Date Heena Abbasi MD [address] [place] [phone] PCP - General Family Medicine 09/05/12 Eli Higuera Health Insurance AgentMailing Machine Assistant 03/17/24 Eli Higuera Health Insurance AgentMailing Machine Assistant 10/05/24 Eli Higuera Health Insurance AgentMailing Machine Assistant 02/22/25 documented as of this encounter
--- OUTSIDE RECORDS SUMMARY | 2025-07-11 12:06 | XMS_ITS | Encounter Summary ---
Author Organization [employer] Address [address] [facility] 7[address] [place] [address] Care Team Providers Care Physician Underwriter Name Role Phone Heena Abbasi MD Primary Care Provider [phone] Encounter Details Date Type Department Care Team (Latest Contact Info) Description 05/08/2025 Results Follow-Up [facility] MED & PEDS [address] [place], [place] [phone] Heena Abbasi MD [address] [place], [place] [phone] BI Mammogram Screening Tomosynthesis Bilateral Social History [...] Assessment Author Several days 05/23/2025 10:19 AM EDT Douglas Daigle MA * Moving or speaking so slowly [...] Daigle [place] documented as of this encounter Miscellaneous Notes * Result Encounter Note - Heena Abbasi MD - 05/08/2025 3:43 PM EDT Needs tracking documented in this encounter Plan of Treatment Upcoming Encounters Date Type Department Care Team (Late st Contact Info) Description 08/06/2025 1:15 PM EST Office Visit [facility] MED & PEDS [address] [place] [address] Lauren Amaral MD [address] [place] [address] documented as of this encounter Visit Diagnoses Not on filedocumented in this encounter Additional Health Concerns Assessment Noted Time PHQ-9 Depression Total Score: 5 12/31/19 24 10:57 AM EDT documented as of this encounter Care Teams Physician Underwriter Relationship Specialty Start Date End Date Heena Abbasi MD [address] [place] [phone] PCP - General Family Medicine 09/05/12 Eli Higuera Clinical Informatics StrategistPrimary Montessori Teacher 03/17/24 Eli Higuera Clinical Informatics StrategistPrimary Montessori Teacher 10/05/24 Eli Higuera Clinical Informatics StrategistPrimary Montessori Teacher 02/22/25 documented as of this encounter
== END 2025-07-11 10:32 | disposition home or self-care (01) ==
LOC: HO.ACS 10:00
PROVIDERS: PCP Student in an Organized Health Care Education/Training Program; Visit Provider Internal Medicine Medical Oncology
DX: Z79.01 Long term (current) use of anticoagulants (principal)

== ENCOUNTER → 2025-07-11 10:00 | Outpatient (BNVA) | payer MEDICAID, SELFPAY | PROVIDERS: PCP Student in an Organized Health Care Education/Training Program; Visit Provider Internal Medicine Medical Oncology | DX: Z86.711 Personal history of pulmonary embolism (principal); Z51.81 Encounter for therapeutic drug level monitoring; Z79.01 Long term (current) use of anticoagulants | CPT/HCPCS: 85610; 99211 ==

== ENCOUNTER 2025-07-16 07:46 | Outpatient (REF) | payer MEDICAID, SELFPAY ==
--- NOTE | ~2025-07-16 | CT_ITS ---
EXAMINATION: CT ABDOMEN PELVIS WITH IV CONTRAST HISTORY: rule out appendicitis COMPARISON: There are no prior studies for available comparison. TECHNIQUE: CT scan of the abdomen and pelvis was performed following administration of 85 mL Omnipaque 350 using standard departmental protocol. Coronal and sagittal reformatted images were generated and reviewed. The patient received oral contrast material. This CT exam was performed with one or more of the following dose reduction techniques: automated exposure control, adjustment of the mA and/or kV according to patient size, use of iterative reconstruction technique. DLP: 367 mGy-cm FINDINGS: LOWER CHEST: The visualized lung bases are clear. There is no pleural effusion. CARDIOVASCULATURE: The heart is normal in size. There is no pericardial effusion. LIVER: The liver is normal in size and contour. There are subcentimeter hypodensities in the left lobe which are too small to accurately characterize. The hepatic and portal veins are patent. GALLBLADDER / BILE DUCTS: The gallbladder is surgically absent. There is no intra or extrahepatic biliary ductal dilatation. SPLEEN: The spleen is normal in size. No focal splenic lesion is identified. PANCREAS: The pancreas is unremarkable in appearance. ADRENAL GLANDS: Within normal limits. KIDNEYS/RETROPERITONEUM: There is extensive bilateral renal scarring likely represents chronic pyelonephritis. No evidence of acute pyelonephritis. No renal calculi are identified. There is no hydronephrosis. No renal masses are identified. LYMPH NODES: No abdominal or pelvic lymphadenopathy. VASCULATURE: The abdominal aorta is normal in caliber. MESENTERY/PERITONEUM: No free fluid. No masses. There is no free intraperitoneal gas. STOMACH: The stomach is unremarkable. SMALL BOWEL: The small bowel is normal in caliber. COLON: There is a moderate amount of stool throughout the colon. APPENDIX: Normal. URINARY BLADDER/PELVIC ORGANS: The urinary bladder is collapsed, limiting evaluation. The uterus is unremarkable. BONES / SOFT TISSUES: No suspicious bony or soft tissue abnormalities. CT/CT abdomen pelvis w IV con IMPRESSION: 1. Moderate amount of stool throughout the colon. 2. A normal appendix is visualized. 3. Extensive bilateral renal scarring, likely representing chronic pyelonephritis. Electronically signed by: Kai Elizalde MD 07/16/2025 10:02 AM EDT
--- OUTSIDE RECORDS SUMMARY | 2025-07-16 07:49 | XMS_ITS | Encounter Summary ---
Author Organization [email or web address] Address [address] [facility] 7[address] [place] [address] Care Team Providers Care Hoop Maker Helper Machine Name Role Phone Heena Abbasi MD Primary Care Provider [phone] Encounter Details Date Type Department Care Team (Late Contact Info) Description 09/10/[address] [facility] [address] [place], [place] [phone] Tierra Ashby LPN Social History Tobacco Use [...] 08/06/2025 1:15 PM EST Office Visit [facility] MED & PEDS [address] [place] [address] Lauren Amaral MD [address] [place] [address] documented as of this encounter Visit Diagnoses Not on filedocumented in this encounter Care Teams Hoop Maker Helper Machine Relationship Specialty Start Date End Date Heena Abbasi MD [address] [place] [address] PCP - General Family Medicine 09/05/12 Eli Higuera Camera RepairmanCloth Finishing Range Operator 03/17/24 Eli Higuera Camera RepairmanCloth Finishing Range Operator 10/05/24 Eli Higuera Camera RepairmanCloth Finishing Range Operator 02/22/25 documented as of this encounter
--- OUTSIDE RECORDS SUMMARY | 2025-07-16 07:49 | XMS_ITS | Clinical Summary ---
Author Organization [email or web address] Address [address] [facility] 7[address] [place] [address] Care Team Providers Care Director Content Marketing Name Role Phone Heena Abbasi MD Primary Care Provider [phone] Allergies No known active allergies Medications Calcium [...] Gentle stretching Short course of flexeril, I bereavement counselor about side effect somnolence Acetaminophen 1300mg [...] Data 07/09/2025 11:30 AM EDT Clinical Support [facility] [address] [place] [address] Arianna Gutierrez RN Benign hypertension 07/09/2025 Travel 07/04/2025 Results Follow-Up [facility] [address] [place] [address] Ann Velez RN CBC auto differential, Basic Metabolic Panel, C-reactive Protein, Sed Rate by Charline Dhillon 06/27/2025 Orders Only [facility] [address] [place] [address] Hodan Hanna MD Right flank pain (Primary Dx); Right lower quadrant pain 06/27/2025 Telephone [facility] [address] [place] [address] [phone] ABDOMEN/PELVIS ORDER 06/26/2025 Results Follow-Up [facility] [address] [place] [phone] Lauren Amaral MD Pap Smear, HPV High Risk with Reflex to Subtypes 06/20/2025 2:00 PM EDT Office Visit [facility] [address] [place] [address] Hodan Hanna MD Right flank pain (Primary Dx); Right lower quadrant pain 06/20/2025 Travel 06/19/2025 10:20 AM EDT Procedure Visit [facility] [address] [place] [address] Lauren Amaral MD Cervical cancer screening (Primary Dx); Screening for lung cancer; Encounter for immunization 06/19/2025 Telephone [facility] [address] [place] [address] Heena Abbasi MD Appointment Request 06/19/2025 Travel 06/18/2025 Telephone [facility] [address] [place] [address] Heena Abbasi MD chart prep 06/13/2025 Orders Only GENERIC EXTERNAL DATA DEPARTMENT Provider, Generic External Data 05/24/2025 Telephone [facility] [address] [place] [place] [address] Heena Abbasi MD 05/23/2025 10:15 AM EDT Office Visit [facility] [address] [place] [address] Heena Abbasi MD Benign hypertension (Primary Dx); Hypercholesterolemia; Chronic atrial fibrillation (CMS/HCC); Insomnia, unspecified type; Acute bilateral low back pain without sciatica; Encounter for annual wellness visit; Cerebrovascular accident (CVA), unspecified mechanism (CMS/HCC) 05/23/2025 Refill [facility] [address] [facility] [place] [place] [address] Heena Abbasi MD 05/23/2025 Travel 05/22/2025 Telephone [facility] [address] [place] [address] Heena Abbasi MD Chart Prep 05/16/2025 Orders Only GENERIC EXTERNAL DATA DEPARTMENT Provider, Generic External Data 05/15/2025 Patient Outreach [facility] [address] [place] [address] Heena Abbasi MD Pre-visit Planning (SDOH screening negative and Tobacco screening negative) 05/10/2025 9:00 AM EDT Office Visit [facility] [address] [place] [address] Ravi Neri 05/08/2025 Results Follow-Up [facility] [address] [place] [address] Heena Abbasi MD BI Mammogram Screening Tomosynthesis Bilateral 05/03/2025 10:00 AM EDT Office Visit [facility] [address] [place] [address] Ravi Neri 04/18/2025 Orders Only GENERIC EXTERNAL [...] Description 08/06/2025 1:15 PM EST Office Visit [facility] P[facility] [address] [place] [address] Lauren Amaral MD [address] [place] [address] Health Maintenance Due Date Last Done Comments [...] included. Protime 32.8(H) 11.1 - 13.5 sec [facility] 07/11/2025 10:2 1 AM EDT 07/11/2025 10:23 AM EDT us Generic External Data Provider LAB BLOOD ORDERAB LES Final Result [facility] [address] [place] [phone] * (ABNORMAL) ~PT, ~INR - ANTI COAG CLINIC (07/11/2025 10:21 AM EDT) Only the most recent of4 resultswithin the time period is included. Pathologist [facility] Prothrombin Time INR 2.7(H) 0.9 - 1.1 [facility] Comment:METER #: [id number] TERNATIONAL NORMALIZED RATIO (INR) REFERENCE RANGES Reference [...] ORDERAB LES Final Result Performing Organization Address City/State/[facility] Co de Phone Number [facility] [address] [place] [phone] * (ABNORMAL) CBC auto differential (06/20/2025 2:52 PM EDT) [facility] White Blood Count 9.0 4.8 - 10.8 X10*3/uL [facility] Red Blood Count 4.57 4.20 - 5.50 X10*6/uL [facility] Hemoglobin 10.3(L) 12.0 - 16.0 g/dl [facility] Hematocrit 33.8(L) 37.0 - 47.0 % [facility] Mean Corpuscular Volume 74.0(L) 80.0 - 98.0 fL [facility] Mean Corpuscular Hemoglobin 22.5(L) 27.0 - 33.0 pg [facility] Mean Corpuscular HGB Conc 30.5(L) 31.0 - 35.0 g/dl [facility] Red Cell Distribution Width 20.1(H) 11.0 - 16.0 % [facility] Platelet Count 599(H) 160 - 400 X10*3/uL [facility] Mean Platelet Volume 9.3(L) 9.4 - 12.3 fL [facility] Neutrophils Percent Auto 60.0 45 - 73 % [facility] Imm Gran Pct Auto 0.3 0.0 - 0.4 % [facility] Lymphocytes Percent Auto 27.0 20 - 40 % [facility] Monocytes Percent Auto 9.9 2 - 11 % [facility] Eosinophils Percent Auto 2.2 0 - 4 % [facility] Basophils Percent Auto 0.6 0 - 2 % [facility] NRBC Pct Auto 0.0 0.0 - 0.2 /100WBC [facility] Neutrophils Absolute Auto 5.4 2.0 - 8.3 x10*3/uL [facility] Imm Gran Abs Auto 0.03 0.00 - 0.03 X10*3/uL [facility] Lymphocytes Absolute Auto 2.4 1.2 - 4.9 X10*3/uL [facility] Monocytes Absolute Auto 0.9 0.1 - 1.2 X10*3/uL [facility] Eosinophils Absolute Auto 0.2 0.0 - 0.4 X10*3/uL [facility] Basophils Absolute Auto 0.1 0.0 - 0.2 X10*3/uL [facility] NRBC Abs Auto 0.000 0.0 - 0.012 X10*3/uL [facility] Blood Venous blood specimen / Unknown 06/20/2025 2:52 PM EDT 06/20/2025 6:09 PM EDT us Hodan Hanna MD LAB BLOOD ORDERABLES Final Result [facility] [address] [place] [phone] * (ABNORMAL) Sed Rate by Modified Alejo (06/20/2025 2:52 PM EDT) Erythrocyte Sedimentation Rate 43(H) 0 - 20 MM/HR [facility] Comment:Patients with polycy themia and many hemoglobin abnormalitiesmay have depressed sed rates whereas patients with anemiamay have elevated sed rates. Blood Venous blood specimen / Unknown 06/20/2025 2:52 PM EDT 06/20/2025 6:09 PM EDT us Hodan Hanna MD LAB BLOOD ORDERABLES Final Result Performing Organization Address [facility] Co de Phone Number [facility] [address] [place] [phone] * (ABNORMAL) C-reactive Protein (06/20/2025 2:52 PM EDT) [facility] C Reactive Protein 1.75(H) < or = 0.50 mg/dL [facility] Blood Venous blood specimen / Unknown 06/20/2025 2:52 PM EDT 06/20/2025 6:09 PM EDT us Hodan Hanna MD LAB BLOOD ORDERABLES Final Result Performing Organization Address [facility] Phone Number [facility] [address] [place] [phone] * (ABNORMAL) Basic Metabolic Panel (06/20/2025 2:52 PM EDT) Only the most recent of2 resultswithin the time period is included. [facility] Sodium 138 135 - 145 mmol/L [facility] Potassium 4.3 3.3 - 5.1 mmol/L [facility] Chloride 108 96 - 108 mmol/L [facility] Carbon Dioxide 23 22 - 29 mmol/L [facility] Anion Gap 11(L) 12 - 20 [facility] Urea Nitrogen (BUN) 19(H) 9 - 16 mg/dL [facility] Creatinine, Serum 0.85 0.5 - 1.4 mg/dL [facility] Estimated Glomerular Filt Rate >60 [facility] Comment:Chronic Kidney Disea se: Estimated GFR < 60 mL/min/1.30x8Yvurep Kidney Disease: Estimated GFR < 15 mL/min/1.73m2 Glucose 77 60 - 115 mg/dL [facility] Calcium 8.9 8.4 - 10.2 mg/dL [facility] Blood Venous blood specimen / Unknown 06/20/2025 2:52 PM EDT 06/20/2025 6:09 PM EDT us Hodan Hanna MD LAB BLOOD ORDERABLES Final Result Performing Organization Address [facility]/ZIP Co de Phone Number [facility] [address] [place] [phone] * HPV High Risk with Reflex to Subtypes (06/19/2025 11:53 AM EDT) HPV High Risk Negative Negative [facility] HPV Genotype 16 Negative Negative [facility] HPV Genotype 18 Negative Negative [facility] Comment:HPV testing performe d at [facility] (CLIA#[id number]), [address] [place] [address].Testing for HPV was performed using the Donya [...] ORDERABLES Final Re sult Performing Organization Address [facility]/ZIP Co de Phone Number [facility] [address] [place] [phone] * Pap Smear (06/19/2025 12:00 AM EDT) Swab Cervical swab / Unknown 06/19/2025 06/20/2025 6:10 AM EDT [facility] - 06/22/2025 10:53 AM EDT ----- ------- Name: Omaira Holly Age/Sex: 60/F : 1965 Unit#: [id number] Attend Dr: Lauren Amaral MD Re06/19/25 Status: DEP REF Location: HO.LNP Disch: ----- ------- SPEC : [id number] RECD: 06/20/25 STATUS: PERCYRobert SHIRLEY NUM: [id number] ALF: 06/19/25-[address]: Lauren Amaral MD ENTERED: 06/20/25 SP TYPE: Pap Smr [...] Amaral MD LAB CYTOLOGY ORDERABLES Final Result [facility] [address] [place] [phone] * (ABNORMAL) Urinalysis, Complete, with Reflex to Culture (05/23/2025 10:57 AM EDT) Color Urine Yellow [facility] Appearance Urine Clear [facility] PH 6.0 5.0 - 9.0 [facility] Glucose Urine UA Negative Negative mg/dL [facility] Urine Blood Trace(A) Negative [facility] Specific [place] - Urine 1.015 1.005 - 1.025 [facility] Urine Protein Negative Neg-Trace mg/dL [facility] Urine Ketones Negative Negative mg/dL [facility] Nitrite Urine Negative Negative [facility] Leukocyte Esterase Urine Negative Negative [facility] RBC Urine 0-2 0 - 2 /HPF [facility] Urine WBC 0-5 0 - 5 /HPF [facility] Urine Squamous Epithelial Cell 3-5 0 - 2 /HPF [facility] Urine Bacteria Trace None Seen [facility] Hyaline Casts, Urine 0-2 0 - 2 /LPF [facility] Urine 05/23/2025 10:5 7 AM EDT 05/23/2025 1:57 PM EDT Narrative [facility] - 05/23/2025 2:18 PM EDT [id number], Clean Catch Heena Abbasi MD LAB URINE ORDERABLES Final Resul t Performing Organization Address City/[facility] Co de Phone Number [facility] [address] [place] [phone] * (ABNORMAL) Hepatic Function Panel (05/23/2025 10:52 AM EDT) Bilirubin, Total 0.2 0.0 - 1.0 mg/dL [facility] Bilirubin, Direct <0.2 0.0 - 0.5 mg/dL [facility] Aspartate Amino Transferase 25 5 - 31 U/L [facility] Alanine Aminotransferase 14 0 - 31 U/L [facility] Total Protein 8.3(H) 6.5 - 8.0 g/dL [facility] Albumin Level 4.4 3.5 - 5.0 g/dL [facility] Alkaline Phosphatase 94 39 - 117 U/L [facility] Blood Venous blood specimen / Unknown 05/23/2025 10:52 AM EDT 05/23/2025 1:54 PM EDT Heena Abbasi MD LAB BLOOD ORDERABLES Final Resul t Performing Organization Address [facility]/ZIP Co de Phone Number [facility] [address] [place] [phone] * (ABNORMAL) Lipid Panel, Standard (05/23/2025 10:52 AM EDT) Triglycerides 76 <150 mg/dL [facility] Comment:Desirable Triglyceri de: less than 150 mg/dLBorderline High Triglyceride 150-199 mg/dLHigh Triglyceride: 200-499 mg/dLVery High Triglyceride: greater than or equal to 5OO mg/dL Cholesterol 184 <200 mg/dL [facility] Comment:Desirable Cholestero l: less than 200 mg/dLBorderline High Cholesterol: 200-239 mg/dLHigh Cholesterol: greater than 239 mg/dL LDL Cholesterol Calculated 107(H) <100 mg/dL [facility] Comment:Desirable LDL: less than 100 mg/dLNear Optimal/Above Optimal LDL: 110- 129 mg/dLBorderline High LDL: 130-159 mg/dLHigh LDL: 160-189 mg/dLVery High LDL: greater than or equal to 190 mg/dL HDL Cholesterol 62 >40 mg/dL [facility] Comment:Desirable HDL: great er than 40 mg/dL Note: This HDL assay may give artificially low results in patients with liver disease. Blood Venous blood specimen / Unknown 05/23/2025 10:52 AM EDT 05/23/2025 1:54 PM EDT Heena Abbasi MD LAB BLOOD ORDERABLES Final Resul t [facility] [address] [place] [phone] * BI Mammogram Screening Tomosynthesis Bilateral (05/03/2025 9:25 AM EDT) Anatomical Region Laterality Modality Breast Bilateral Mammography 05/03/2025 9:25 AM EDT Narrative 05/08/2025 11:51 AM EDT [facility] [address] [place] [address] Mammography Report Signed Patient: Omaira Holly MR#: [id number] : 1965 Acct:[id number] Age/Sex: 60 / F ADM Date: 05/03/25 Loc: [facility] Attending Dr: Heena Abbasi MD Ordering Physician: Heena Abbasi MD Results: 1Negati ve Date of Service: 05/03/25 Follow Up: 1 Year From Orig inal Mammogram Procedure(s): MM tomosynthesis screening BI Accession Number(s): [id number] cc: Heena Abbasi MD EXAMINATION: MM SCREENING [...] 05/08/25 1148 DD/ 4 TD/TT: 05/03/25 0945 Hand Hose Cutter: Procedure Note Donotuseinterpreter, Image - 05/08/2025 [facility] [address] [place] [address] Mammography Report Signed Patient: Omaira HollyMR#: [id number] : 1965Acct:[id number] Age/Sex: 60 / FADM Date: 05/03/25 Loc: HO.MAMMO Attending Dr: Heena Abbasi MD Ordering Physician: Heena Abbasi MDResults: 1Negati ve Date of Service: 05/03/25Follow Up: 1 Year From Orig inal Mammogram Procedure(s): MM tomosynthesis screening BI Accession Number(s): [id number] cc: Heena Abbasi MD EXAMINATION: MM SCREENING [...] 05/08/25 1148 DD/ 0925 TD/TT: 05/03/25 0945 Hand Hose Cutter: Heena Abbasi MD IMG BI PROCEDURES Final Result * Cologuard?? colon cancer screening (01/11/2024 9:45 AM EDT) Cologuard Result Negative Negative 01/20/20 24 12:00 PM EDT [employer] (CLIA #:[id number]) Comment: NEGATIVE TEST RESULT. A negative Cologuard [...] Dobson et al, N Engl J Med 2014;370(14):4076-9307) The normal value (reference range) for this assay is negative. COLOGUARD RE-SCREENING RECOMMENDATION: Periodic colorectal cancer screening is an important part of preventive healthcare for asymptomatic individuals at average risk for colorectal cancer. Following a negative Cologuard result, the [place] Cancer Society and U.S. Multi-Society Task Force screening guidelines recommend a Cologuard re-screening interval of 3 years. References: [place] Cancer Society Guideline for Colorectal Cancer Screening: https://www.cancer.org/cancer/stpeb-fsqhqo-qlbuoz/tjannkxpx-mimpfigpa-hmenspk/ac s-rec ommendations.html.; Dane DK, Feroz GALE, Lauro McdanielK, Colorectal Cancer Screening: Recommendations for Physicians and Patients from the U.S. Multi-Society Task Force on Colorectal Cancer Screening , Am J Gastroenterology 2017; 112:8315-4212. TEST DESCRIPTION: Composite algorithmic analysis of stool [...] (Mando Sidhu al, N Engl J Med 2014;370(14):1497-2159.) Cologuard may produce a false negative or false positive result (no colorectal cancer or precancerous polyp present at colonoscopy follow up). A negative Cologuard test result does not guarantee the absence of CRC or advanced adenoma (pre-cancer). The current Cologuard screening interval is every 3 years. ([place] Cancer Society and U.S. Multi-Society Task Force). Cologuard performance data in a 10,000 patient pivotal study using colonoscopy as the reference method can be accessed at the following location: www.[employer].Caspida/results. Additional description of the Cologuard test process, warnings and precautions can be found at www.[employer]SIG Digitalrd.com. Stool specimen (specimen) 01/11/2024 9:45 AM EDT 01/13/2024 10:47 AM EDT us Heena Abbasi MD LAB MOLECULAR DIAGNOSTICS MARY OMALLEY Final Result [employer] (CLIA #:[id number]) [address] [place] [address], from Last 3 Months or Most Recently Relevant to Health Maintenance [place] [address] [place] [address] C3 DENTAL-[facility] MEDICAID STAND ADULT [facility] Care Teams Director Content Marketing Relationship Specialty Start Date End Date Heena Abbasi MD [address] [place] [phone] PCP - General Family Medicine 09/05/12 Eli Higuera Filler Block Inserter RemoverPhysics Technical Officer 03/17/24 Eli Higuera Filler Block Inserter RemoverPhysics Technical Officer 10/05/24 Eli Higuera Filler Block Inserter RemoverPhysics Technical Officer 02/22/25
--- OUTSIDE RECORDS SUMMARY | 2025-07-16 07:49 | XMS_ITS | Encounter Summary ---
Author Organization [employer] [facility] Address [address] [facility] 7t [place] [address] Care Team Providers Care Databases Computer Consultant Name Role Phone Heena Abbasi MD Primary Care Provider [phone] Encounter Details Date Type Department Care Team (Latest Contact Info) Description 07/29/2022 Abstract [facility] CONVERSIONS Dental, Provider, DDS Social [...] Description 08/06/2025 1:15 PM EST Office Visit [facility]S [address] [place] [address] Lauren Amaral MD [address] [place] [address] documented as of this encounter Visit Diagnoses Not on filedocumented in this encounter Care Teams Databases Computer Consultant Relationship Specialty Start Date End Date Heena Abbasi MD [address] [place] [phone] PCP - General Family Medicine 09/05/12 Eli Higuera StabberPropeller Engineer 03/17/24 Eli Higuera StabberPropeller Engineer 10/05/24 Eli Higuera StabberPropeller Engineer 02/22/25 documented as of this encounter
--- OUTSIDE RECORDS SUMMARY | 2025-07-16 07:49 | XMS_ITS | Encounter Summary ---
Author Organization [employer] [facility] Address [address] [facility] 7t [place] [address] Care Team Providers Care Tricot Knitter Name Role Phone Heena Abbasi MD Primary Care Provider [phone] Encounter Details Date Type Department Care Team [...] Description 08/06/2025 1:15 PM EST Office Visit [facility] [address] [place] [address] Lauren Amaral MD [address] [place] [address] documented as of this encounter Visit Diagnoses Not on filedocumented in this encounter Care Teams Tricot Knitter Relationship Specialty Start Date End Date Heena Abbasi MD [address] [place] [phone] PCP - General Family Medicine 09/05/12 Eli Higuera Mainframe Systems EngineerSheet Metal Layout Mechanic 03/17/24 Eli Higuera Mainframe Systems EngineerSheet Metal Layout Mechanic 10/05/24 Eli Higuera Mainframe Systems EngineerSheet Metal Layout Mechanic 02/22/25 documented as of this encounter
--- OUTSIDE RECORDS SUMMARY | 2025-07-16 07:49 | XMS_ITS | Encounter Summary ---
Author Organization [employer] Address [address] [facility] [address] [place] [address] Care Team Providers Care Dental Aide Name Role Phone Heena Abbasi MD Primary Care Provider [phone] Encounter Details Date Type Department Care Team (Late st Contact Info) Description 02/29/2024 Telephone C [facility] [address] [place] [address] Perri Noble, SOREN Social History Tobacco Use [...] Office Visit [facility] [address] [place] [address] Lauren Amaral MD [address] [place] [address] documented as of this encounter Visit Diagnoses Not on filedocumented in this encounter Additional Health Concerns Assessment Noted Time PHQ-9 Depression Total Score: 5 12/31/19 24 10:57 AM EDT documented as of this encounter Care Teams Dental Aide Relationship Specialty Start Date End Date Heena Abbasi MD [address] [place] [phone] PCP - General Family Medicine 09/05/12 Eli Higuera Kier TenderCeramic Restorer 03/17/24 Eli Higuera Kier TenderCeramic Restorer 10/05/24 Eli Higuera Kier TenderCeramic Restorer 02/22/25 documented as of this encounter
--- OUTSIDE RECORDS SUMMARY | 2025-07-16 07:49 | XMS_ITS | Encounter Summary ---
Author Organization [employer] Address [address] [facility] 7t [place] [address] Care Team Providers Care Data Management Name Role Phone Heena Abbasi MD Primary Care Provider [phone] Reason for Visit * Reason Onset Date Comments Dr. Golden medical clearance ?? 11/23/2024 Encounter Details Date Type Department Care Team (Late st Contact Info) Description 11/23/2024 Telephone C [facility] [address] [place] [address] Reynoso medical clearance [...] Upcoming Encounters Date Type Department Care Team ([facility] st Contact Info) Description 08/06/2025 1:15 PM EST Office Visit [facility] MED & PEDS [address] [place] [address] Lauren Amaral MD [address] [place] [address] documented as of this encounter Visit Diagnoses Not on filedocumented in this encounter Additional Health Concerns Assessment Noted Time PHQ-9 Depression Total Score: 5 12/31/19 24 10:57 AM EDT documented as of this encounter Care Teams Data Management Relationship Specialty Start Date End Date Heena Abbasi MD [address] [place] [phone] PCP - General Family Medicine 09/05/12 Eli Higuera Twisting Department End FinderSalesperson Sheet Music 03/17/24 Eli Higuera Twisting Department End FinderSalesperson Sheet Music 10/05/24 Eli Higuera Twisting Department End FinderSalesperson Sheet Music 02/22/25 documented as of this encounter
--- OUTSIDE RECORDS SUMMARY | 2025-07-16 07:50 | XMS_ITS | Encounter Summary ---
Author Organization [facility] Address 75 [facility] 7t [place] [address] Care Team Providers Care Transportation Services Representative Name Role Phone Heena Abbasi MD Primary Care Provider [phone] Encounter Details Date Type Department Care Team (Late Contact Info) Description 04/05/2023 Orders Only [facility] MED & PEDS [address] [place] [address] Heena Abbasi MD 505 [place] [address] Social History Tobacco Use Types Packs/Day Years [...] Description 08/06/2025 1:15 PM EST Office Visit [facility] MED & PEDS [address] [place] [address] Lauren Amaral MD 505 [place] [address] documented as of this encounter Visit Diagnoses Not on filedocumented in this encounter Care Teams Transportation Services Representative Relationship Specialty Start Date End Date Heena Abbais MD [address] [place] [address] PCP - General Family Medicine 09/05/12 Eli Higuera Hat SizerBroadcast Operations Engineer 03/17/24 Eli Higuera Hat SizerBroadcast Operations Engineer 10/05/24 Eli Higuera Hat SizerBroadcast Operations Engineer 02/22/25 documented as of this encounter
--- OUTSIDE RECORDS SUMMARY | 2025-07-16 07:50 | XMS_ITS | Encounter Summary ---
Author Organization [employer] Address 75 [facility] 7t [place] [address] Care Team Providers Care Health Professional Name Role Phone Heena Abbasi MD Primary Care Provider [phone] Reason for Visit * Reason Onset Date Comments Med Refill 03/30/2023 Encounter Details Date Type Department Care Team ([facility] st Contact Info) Description 03/30/2023 Telephone [facility] CHC MED & PEDS 505 [place], [place] [phone] Heena Abbasi MD 505 [place] [address] Med Refill Social History Tobacco Use Types [...] Description 08/06/2025 1:15 PM EST Office Visit [facility] CH[facility] MED & PEDS 505 [place] [address] Lauren Amaral MD 505 [place] [address] documented as of this encounter Visit Diagnoses Not on filedocumented in this encounter Care Teams Health Professional Relationship Specialty Start Date End Date Heena Abbasi MD [address] [place] [address] PCP - General Family Medicine 09/05/12 Eli Higuera Computer Programming SupervisorFisher Hoop Net 03/17/24 lEi Higuera Computer Programming SupervisorFisher Hoop Net 10/05/24 Eli Higuera Computer Programming SupervisorFisher Hoop Net 02/22/25 documented as of this encounter
--- OUTSIDE RECORDS SUMMARY | 2025-07-16 07:50 | XMS_ITS | Encounter Summary ---
Author Organization [employer] Address 75 [facility] 7t [place] [address] Care Team Providers Care Informatics Pharmacist Name Role Phone Heena Abbasi MD Primary Care Provider [phone] Encounter Details Date Type Department Care Team [...] t he electric, gas, oil or water [employer] threatened to shut off services in your [...] Description 08/06/2025 1:15 PM EST Office Visit [facility] CHC MED & PEDS 505 [place] [address] Lauren Amaral MD 505 [place] [address] documented as of this encounter Procedures Procedure Name Priority Date/Time Associated Diagnosis Comments PROTHROMBIN TIME WHOLE BLD POC Routine 07/11/2025 10:21 AM EDT ~PT, ~INR - ANTI COAG CLINIC Routine 07/11/2025 10:21 AM EDT documented in this encounter Results * (ABNORMAL) PROTHROMBIN TIME WHOLE BLD POC (07/11/2025 10:21 AM EDT) Protime 32.8(H) 11.1 - 13.5 sec [facility] 07/11/2025 10:2 1 AM EDT 07/11/2025 10:23 AM EDT us Generic External Data Provider LAB BLOOD ORDERAB LES Final Result [facility] [address] [place] [address] [phone] * (ABNORMAL) ~PT, ~INR - ANTI COAG CLINIC (07/11/2025 10:21 AM EDT) Prothrombin Time INR 2.7(H) 0.9 - 1.1 [facility] Comment:METER #: [id number] TERNATIONAL NORMALIZED RATIO (INR) REFERENCE RANGES Reference [...] Provider LAB BLOOD ORDERAB LES Final Result [facility] [address] [place] [phone] documented in this encounter Visit Diagnoses Not on filedocumented in this encounter Additional Health Concerns Assessment Noted Time PHQ-9 Depression Total Score: 7 05/23/20 25 10:19 AM EDT documented as of this encounter Care Teams Informatics Pharmacist Relationship Specialty Start Date End Date Heena Abbasi MD [address] [place] [address] PCP - General Family Medicine 09/05/12 Eli Higuera Quarter TrimmerYouth Minister 03/17/24 Eli Higuera Quarter TrimmerYouth Minister 10/05/24 Eli Higuera Quarter TrimmerYouth Minister 02/22/25 documented as of this encounter
--- OUTSIDE RECORDS SUMMARY | 2025-07-16 07:50 | XMS_ITS | Encounter Summary ---
Author Organization [employer] Address 75 [facility] 7t [place] [address] Care Team Providers Care Big Data Hadoop Developer Name Role Phone Heena Abbasi MD Primary Care Provider [phone] Encounter Details Date Type Department Care Team (Late Contact Info) Description 03/05/2023 Telephone [facility] ADULT D[facility]AL [address] [place], [place] [phone] Anthony Arnold [address] [place] [address] Social History Tobacco Use Types Packs/Day Years [...] AM EDT Patient called in with her AGRICULTURAL LABOR CAMP MANAGER from her coumadin clinic to report INR number of 3.2. [facility] commercial front load operator that number was too high and patient will not be able to be seen. Informed patient to call next week to check schedule for new appt date that will coincide with a new coumadin INR apptdate as well. Patient understood DR documented in this encounter Plan of Treatment Upcoming Encounters Date Type Department Care Team ([facility] Contact Info) Description 08/06/2025 1:15 PM EST Office Visit [facility] MED & PEDS [address] [place] [address] Lauren Amaral MD [address] [place] [address] documented as of this encounter Visit Diagnoses Not on filedocumented in this encounter Care Teams Big Data Hadoop Developer Relationship Specialty Start Date End Date Heena Abbasi MD [address] [place] [address] PCP - General Family Medicine 09/05/12 Eli Higuera Dye Beck Reel OperatorTechnical Spec 03/17/24 Eli Higuera Dye Beck Reel OperatorTechnical Spec 10/05/24 Eli Higuera Dye Beck Reel OperatorTechnical Spec 02/22/25 documented as of this encounter
--- OUTSIDE RECORDS SUMMARY | 2025-07-16 07:50 | XMS_ITS | Encounter Summary ---
Author Organization [employer] Address 75 [facility] 7t [place] [address] Care Team Providers Care Riverine Assault Craft Crewman Name Role Phone Heena Abbasi MD Primary Care Provider [phone] Encounter Details Date Type Department Care Team (Late st Contact Info) Description 12/31/2023 Orders Only [facility] CHC MED & PEDS 505 [place], [place] [phone] Heena Abbasi MD 505 [place], [place] [phone] Social History Tobacco Use Types Packs/Day Years [...] Description 08/06/2025 1:15 PM EST Office Visit [facility] CHC MED & PEDS [address] [place] [address] Lauren Amaral MD 505 [place] [address] documented as of this encounter Visit Diagnoses Not on filedocumented in this encounter Additional Health Concerns Assessment Noted Time PHQ-9 Depression Total Score: 5 12/31/19 24 10:57 AM EDT documented as of this encounter Care Teams Riverine Assault Craft Crewman Relationship Specialty Start Date End Date Heena Abbasi MD [address] [place] [address] PCP - General Family Medicine 09/05/12 Eli Higuera Welfare InterviewerLeak Detector 03/17/24 Eli Higuera Welfare InterviewerLeak Detector 10/05/24 Eli Higuera Welfare InterviewerLeak Detector 02/22/25 documented as of this encounter
--- OUTSIDE RECORDS SUMMARY | 2025-07-16 07:50 | XMS_ITS | Encounter Summary ---
Author Organization [employer] Address 75 [facility] 7t [place] [address] Care Team Providers Care Mud Jack Nozzle Worker Name Role Phone Heena Abbasi MD Primary Care Provider [phone] Reason for Visit * Reason Onset Date Comments Med Refill 01/31/2025 Encounter Details Date Type Department Care Team ([facility] st Contact Info) Description 01/31/2025 Telephone [facility] MEDICINE [address] [place] [address] Heena Abbasi MD [address] [place], [place] [phone] Med Refill Social History Tobacco Use Types [...] sent to: [facility]/pharmacy #[id number] - [place], [place] - [address] documented in this encounter Plan of Treatment Upcoming Encounters Date Type Department Care Team (Late st Contact Info) Description 08/06/2025 1:15 PM EST Office Visit [facility] MED & PEDS 505 [place] [address] Lauren Amaral MD 505 [place] [address] documented as of this encounter Visit Diagnoses Not on filedocumented in this encounter Additional Health Concerns Assessment Noted Time PHQ-9 Depression Total Score: 5 12/31/19 24 10:57 AM EDT documented as of this encounter Care Teams Mud Jack Nozzle Worker Relationship Specialty Start Date End Date Heena Abbasi MD [address] [place] [address] PCP - General Family Medicine 09/05/12 Eli Higuera Slope RunnerApplications Project Manager 03/17/24 Eli Higuera Slope RunnerApplications Project Manager 10/05/24 Eli Higuera Slope RunnerApplications Project Manager 02/22/25 documented as of this encounter
--- OUTSIDE RECORDS SUMMARY | 2025-07-16 07:50 | XMS_ITS | Encounter Summary ---
Author Organization [employer] Address 75 [facility] 7t [place] [address] Care Team Providers Care Central Office Maintainer Name Role Phone Heena Abbasi MD Primary Care Provider [phone] Reason for Visit * Reason Onset Date Comments Med Refill 12/30/2022 Encounter Details Date Type Department Care Team ([facility] st Contact Info) Description 12/30/[address] [facility] MEDICINE [address] [place] [address] Heena Abbasi MD 505 [place], [place] [phone] Med Refill Social History Tobacco Use Types [...] 12/30/2022 12:39 PM EDT Pt managed by [facility] coumadin [...] PM EST Office Visit [facility] CHC MED & PEDS 505 [place] [address] Lauren Amaral MD [address] [place] [address] documented as of this encounter Visit Diagnoses Not on filedocumented in this encounter Care Teams Central Office Maintainer Relationship Specialty Start Date End Date Heena Abbasi MD [address] [place] [address] PCP - General Family Medicine 09/05/12 Eli Higuera Razor GrinderGang Drill Press Operator 03/17/24 Eli Higuera Razor GrinderGang Drill Press Operator 10/05/24 Eli iHguera Razor GrinderGang Drill Press Operator 02/22/25 documented as of this encounter
--- OUTSIDE RECORDS SUMMARY | 2025-07-16 07:50 | XMS_ITS | Encounter Summary ---
Author Organization [employer] Address 75 [facility] 7t [place] [address] Care Team Providers Care Threading Machine Setter Name Role Phone Heena Abbasi MD Primary Care Provider [phone] Encounter Details Date Type Department Care Team ([facility] Contact Info) Description 06/26/2025 Results Follow-Up [facility] CHC MED & PEDS [address] [place], [place] [phone] Lauren Amaral MD 505 [place] [address] Pap Smear, HPV High Risk with Reflex [...] Description 08/06/2025 1:15 PM EST Office Visit [facility] CHC MED & PEDS [address] [place] [address] Lauren Amaral MD [address] [place] [address] documented as of this encounter Visit Diagnoses Not on filedocumented in this encounter Additional Health Concerns Assessment Noted Time PHQ-9 Depression Total Score: 7 05/23/20 25 10:19 AM EDT documented as of this encounter Care Teams Threading Machine Setter Relationship Specialty Start Date End Date Heena Abbasi MD [address] [place] [address] PCP - General Family Medicine 09/05/12 Eli Higuera Re Recording MixerTree Trimmer 03/17/24 Eli Higuera Re Recording MixerTree Trimmer 10/05/24 Eli Higuera Re Recording MixerTree Trimmer 02/22/25 documented as of this encounter
--- OUTSIDE RECORDS SUMMARY | 2025-07-16 07:50 | XMS_ITS | Encounter Summary ---
Author Organization [employer] Address 75 [facility] 7t [place] [address] Care Team Providers Care Manager Placement Name Role Phone Heena Abbasi MD Primary Care Provider [phone] Reason for Visit * Reason Onset Date Comments Referral 07/29/2023 Encounter Details Date Type Department Care Team ([facility] st Contact Info) Description 07/29/2023 Telephone [facility] MEDICINE 230 [place] [address] Heena Abbasi MD 505 [place], [place] [phone] Referral Social History Tobacco Use Types Packs/Day [...] Description 08/06/2025 1:15 PM EST Office Visit [facility] MED & PEDS 505 [place] [address] Lauren Amaral MD 505 [place] [address] documented as of this encounter Visit Diagnoses Not on filedocumented in this encounter Care Teams Manager Placement Relationship Specialty Start Date End Date Heena Abbasi MD [address] [place] [address] PCP - General Family Medicine 09/05/12 Eli Higuera Bricklayer'S AssistantFuse Assembler 03/17/24 Eli Higuera Bricklayer'S AssistantFuse Assembler 10/05/24 Eli Higuera Bricklayer'S AssistantFuse Assembler 02/22/25 documented as of this encounter
--- OUTSIDE RECORDS SUMMARY | 2025-07-16 07:50 | XMS_ITS | Encounter Summary ---
Author Organization [employer] Address 75 [facility] 7t [place] [address] Care Team Providers Care Wire Machine Cutter Name Role Phone Heena Abbasi MD Primary Care Provider [phone] Reason for Visit * Reason Onset Date Comments Med Refill 06/09/2023 Encounter Details Date Type Department Care Team ([facility] st Contact Info) Description 06/09/2023 Telephone [facility] CHC MED & PEDS [address] [place], [place] [phone] Heena Abbasi MD 505 [place] [address] Med Refill Social History Tobacco Use Types [...] message pt has refills at pharmacy . Meat Manager contacted pharmacy to confirm . [facility] [...] to [facility] #[id number] - [place], [place] - [address] documented in this encounter Plan of Treatment Upcoming Encounters Date Type Department Care Team (Late st Contact Info) Description 08/06/2025 1:15 PM EST Office Visit [facility] MED & PEDS [address] [place] [address] Lauren Amaral MD 505 [place] [address] documented as of this encounter Visit Diagnoses Not on filedocumented in this encounter Care Teams Wire Machine Cutter Relationship Specialty Start Date End Date Heena Abbasi MD [address] [place] [address] PCP - General Family Medicine 09/05/12 Eli Higuera Gift Shop ClerkClinical Documentation Consultant 03/17/24 Eli Higuera Gift Shop ClerkClinical Documentation Consultant 10/05/24 Eli Higuera Gift Shop ClerkClinical Documentation Consultant 02/22/25 documented as of this encounter
--- OUTSIDE RECORDS SUMMARY | 2025-07-16 07:50 | XMS_ITS | Encounter Summary ---
Author Organization [employer] Address 75 [facility] 7t [place] [address] Care Team Providers Care Gardener Florist Name Role Phone Heena Abbasi MD Primary Care Provider [phone] Encounter Details Date Type Department Care Team (Late Contact Info) Description 12/09/2022 Orders Only [facility] MED & PEDS [address] [place] [address] Heena Abbasi MD 505 [place] [address] Social History Tobacco Use Types Packs/Day Years [...] [facility] MED & PEDS [address] [place] [address] Lauren Amaral MD 505 [place] [address] documented as of this encounter Visit Diagnoses Not on filedocumented in this encounter Care Teams Gardener Florist Relationship Specialty Start Date End Date Heena Abbasi MD [address] [place] [address] PCP - General Family Medicine 09/05/12 Eli Higuera Mushroom Spawn MakerMechanical Engineering Technologist 03/17/24 Eli Higuera Mushroom Spawn MakerMechanical Engineering Technologist 10/05/24 Eli Higuera Mushroom Spawn MakerMechanical Engineering Technologist 02/22/25 documented as of this encounter
--- OUTSIDE RECORDS SUMMARY | 2025-07-16 07:50 | XMS_ITS | Encounter Summary ---
Author Organization [employer] Address 75 [facility] 7 [place] [address] Care Team Providers Care Wool Washer Name Role Phone Heena Abbasi MD Primary Care Provider [phone] Reason for Referral * Imaging (Urgent) - Authorized Specialty Diagnoses / Procedures Referred By Contemmanuel clark Referred To Contact Radiology Diagnoses Right flank pain Right lower quadrant pain Procedures CT Abdomen Pelvis w/ Contrast Hodan Hanna MD [address] [place] [address] Phone: tel: fax: [address] Phone: tel: fax: Referral ID Status Reason Start Date Expiration Date V isits Requested Visits Authorized [id number] Authorized 06/27/2025 06/27/2026 1 1 Encounter Details Date Type Department Care Team (Late st Contact Info) Description 06/27/2025 Orders Only [facility] CHC MED & PEDS [address] [place] [address] Hodan Hanna MD [address] [place] [address] Right flank pain (Primary Dx); Right lower [...] Upcoming Encounters Date Type Department Care Team ([facility] st Contact Info) Description 08/06/2025 1:15 PM EST Office Visit [facility] CHC MED & PEDS 505 [place] [address] Lauren Amaral MD 505 [place] [address] Scheduled Orders Name Type Priority Associated Diagnoses [...] documented as of this encounter Care Teams Wool Washer Relationship Specialty Start Date End Date Heena Abbasi MD [address] [place] [address] PCP - General Family Medicine 09/05/12 Eli Higuera Fitter And TurnerAutomatic Spinning Lathe Setter 03/17/24 Eli Higuera Fitter And TurnerAutomatic Spinning Lathe Setter 10/05/24 Eli Higuera Fitter And TurnerAutomatic Spinning Lathe Setter 02/22/25 documented as of this encounter
--- OUTSIDE RECORDS SUMMARY | 2025-07-16 07:50 | XMS_ITS | Encounter Summary ---
Author Organization [facility] Address 75 [facility] 7t [place] [address] Care Team Providers Care Air Pollution Specialist Name Role Phone Heena Abbasi MD Primary Care Provider [phone] Encounter Details Date Type Department Care Team (Late Contact Info) Description 01/01/2023 Orders Only [facility] MED & PEDS [address] [place] [address] Heena Abbasi MD 505 [place] [address] Muscle spasm Social History Tobacco Use Types [...] [facility] [address] [place] [address] Lauren Amaral MD [address] [place] [address] documented as of this encounter Visit Diagnoses Diagnosis Muscle spasm Spasm of muscle documented in this encounter Care Teams Air Pollution Specialist Relationship Specialty Start Date End Date Heena Abbasi MD [address] [place] [address] PCP - General Family Medicine 09/05/12 Eli Higuera Sprinkler Irrigation Equipment MechanicCar Servicer 03/17/24 Eli Higuera Sprinkler Irrigation Equipment MechanicCar Servicer 10/05/24 Eli Higuera Sprinkler Irrigation Equipment MechanicCar Servicer 02/22/25 documented as of this encounter
--- OUTSIDE RECORDS SUMMARY | 2025-07-16 07:50 | XMS_ITS | Encounter Summary ---
Author Organization [employer] [facility] Address 75 [facility] 7t [place] [address] Care Team Providers Care Drum Straightener Name Role Phone Heena Abbasi MD Primary Care Provider [phone] Reason for Visit * Reason Onset Date Comments pre tx medication 02/16/2023 Encounter Details Date Type Department Care Team (Late Contact Info) Description 02/16/2023 Telephone [facility] ADULT DENTAL [address] [place], [place] [phone] Socorro Auguste DDS pre tx medication Social [...] Upcoming Encounters Date Type Department Care Team ([facility] Contact Info) Description 08/06/2025 1:15 PM EST Office Visit [facility] MED & PEDS [address] [place] [address] Lauren Amaral MD [address] [place] [address] documented as of this encounter Visit Diagnoses Not on filedocumented in this encounter Care Teams Drum Straightener Relationship Specialty Start Date End Date Heena Abbasi MD [address] [place] [address] PCP - General Family Medicine 09/05/12 Eli Higuera Movie Shot Camera OperatorPipe Chipper 03/17/24 Eli Higuera Movie Shot Camera OperatorPipe Chipper 10/05/24 Eli Higuera Movie Shot Camera OperatorPipe Chipper 02/22/25 documented as of this encounter
--- OUTSIDE RECORDS SUMMARY | 2025-07-16 07:50 | XMS_ITS | Encounter Summary ---
Author Organization [employer] Address 75 [facility] 7t [place] [address] Care Team Providers Care Auto Emissions Technician Name Role Phone Heena Abbasi MD Primary Care Provider [phone] Reason for Visit * Reason Onset Date Comments Referral 05/17/2023 Encounter Details Date Type Department Care Team ([facility] st Contact Info) Description 05/17/[address] [facility] CHC MED & PEDS 505 [place], [place] [phone] Heena Abbasi MD 505 [place] [address] Referral Social History Tobacco Use Types Packs/Day [...] 05/17/2023 10:31 AM EDT Tc from [facility] ([facility]) requesting referral for pt. Location: [place] [address], [place] Date: n/a Time: n/a Specialty: storekeeper engineering documented in this encounter Plan of Treatment Upcoming Encounters Date Type Department Care Team (Late st Contact Info) Description 08/06/2025 1:15 PM EST Office Visit [facility] MED & PEDS 505 [place] [address] Lauren Amaral MD 505 [place] [address] documented as of this encounter Visit Diagnoses Not on filedocumented in this encounter Care Teams Auto Emissions Technician Relationship Specialty Start Date End Date Heena Abbasi MD [address] [place] [address] PCP - General Family Medicine 09/05/12 Eli Higuera Twisting Press OperatorSerging Machine Operator Automatic 03/17/24 Eli Higuera Twisting Press OperatorSerging Machine Operator Automatic 10/05/24 Eli Higuera Twisting Press OperatorSerging Machine Operator Automatic 02/22/25 documented as of this encounter
[2025-07-16] MEDS: iohexoL 350 MG/ML 100 ML INFUS..BTL 85 ML IV (09:46)
[2025-07-16] MEDS: Barium Sulfate Oral (Vanilla) 450 ML ORAL.SUSP 900 ML PO (09:47)
== END 2025-07-16 07:47 | disposition home or self-care (01) ==
LOC: HO.CT 07:46
PROVIDERS: PCP Student in an Organized Health Care Education/Training Program; Visit Provider Internal Medicine
DX: R10.31 Right lower quadrant pain (principal); R10.11 Right upper quadrant pain
CPT/HCPCS: 74177; Q9967

== ENCOUNTER → 2025-07-16 07:51 | Outpatient (BNV) | payer MEDICAID, SELFPAY | PROVIDERS: PCP Student in an Organized Health Care Education/Training Program; Visit Provider Radiology Diagnostic Radiology | DX: Z03.89 Encounter for observation for other suspected diseases and conditions ruled out (principal); R19.5 Other fecal abnormalities; N28.89 Other specified disorders of kidney and ureter | CPT/HCPCS: 74177 ==

== ENCOUNTER 2025-07-18 09:53 | Outpatient (REF) | payer MEDICAID, SELFPAY ==
--- OUTSIDE RECORDS SUMMARY | 2025-07-18 11:56 | XMS_ITS | Encounter Summary ---
Author Organization [employer] [facility] Address [address] [place] [address] Care Team Providers Care Photoengraving Retoucher Name Role Phone Heena Abbasi MD Primary Care Provider [phone] Encounter Details Date Type Department Care Team (Latest Contact Info) Description 07/29/2022 Abstract [facility] CONVERSIONS Dental, Provider, DDS Social [...] 08/06/2025 1:15 PM EST Office Visit [facility] [address] [place] [address] Lauren Amaral MD [address] [place] [address] documented as of this encounter Visit Diagnoses Not on filedocumented in this encounter Care Teams Photoengraving Retoucher Relationship Specialty Start Date End Date Heena Abbasi MD [address] [place] [id number] PCP - General Family Medicine 09/05/12 Eli Higuera At Risk ParaprofessionalOil Lease Buyer 03/17/24 Eli Higuera At Risk ParaprofessionalOil Lease Buyer 10/05/24 Eli Higuera At Risk ParaprofessionalOil Lease Buyer 02/22/25 documented as of this encounter
--- OUTSIDE RECORDS SUMMARY | 2025-07-18 11:56 | XMS_ITS | Encounter Summary ---
Author Organization [employer] Address [address] [place] [address] Care Team Providers Care Traffic Signal Repairer Name Role Phone Heena Abbasi MD Primary Care Provider [phone] Encounter Details Date Type Department Care Team (Late Contact Info) Description 09/10/2022 Orders Only [facility] [address] [place], [place] [phone] Tierra Ashby LPN Social History Tobacco Use [...] Description 08/06/2025 1:15 PM EST Office Visit [facility] [address] [place] [address] Lauren Amaral MD [address] [place] [address] documented as of this encounter Visit Diagnoses Not on filedocumented in this encounter Care Teams Traffic Signal Repairer Relationship Specialty Start Date End Date Heena Abbasi MD [address] [place] [address] PCP - General Family Medicine 09/05/12 Eli Higuera AutocutterSole Skiver 03/17/24 Eli Higuera AutocutterSole Skiver 10/05/24 Eli Higuera AutocutterSole Skiver 02/22/25 documented as of this encounter
--- OUTSIDE RECORDS SUMMARY | 2025-07-18 11:56 | XMS_ITS | Clinical Summary ---
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 Name Role Phone Heena Abbasi MD Primary Care Provider [phone] Allergies No known active allergies Medications Calcium [...] Gentle stretching Short course of flexeril, I counselor marriage and family about side effect somnolence Acetaminophen 1300mg Q8-12hrs [...] Encounters Date Type Department Care Team Description 07/17/2025 Results Follow-Up [facility] [address] [place] [address] Abdomen Pelvis w/ Contrast 07/16/2025 Orders Only [facility] [address] [place] [address] Hodan Hanna MD Chronic pyelonephritis (Primary Dx) 07/11/2025 Orders Only GENERIC EXTERNAL DATA DEPARTMENT Provider, Generic External Data 07/09/2025 11:30 AM EDT Clinical Support [facility] [address] [place] [address] Arianna Gutierrez RN Benign hypertension 07/09/2025 Travel 07/04/2025 Results Follow-Up [facility] [address] [place] [address] Skala, Ann, RN CBC auto differential, Basic Metabolic Panel, C-reactive Protein, Sed Rate by Modified Westergren 06/27/2025 Orders Only [facility] [address] [place] [address] Hodan Hanna MD Right flank pain (Primary Dx); Right lower quadrant pain 06/27/2025 Telephone [facility] [address] [place] [phone] ABDOMEN/PELVIS ORDER 06/26/2025 Results Follow-Up [facility] [address] [place] [address] Lauren Amaral MD Pap Smear, HPV High Risk with Reflex to Subtypes 06/20/2025 2:00 PM EDT Office Visit [facility] [address] [place] [address] Hodan Hanna MD Right flank pain (Primary Dx); Right lower quadrant pain 06/20/2025 Travel 06/19/2025 10:20 AM EDT Procedure Visit [facility] [address] [place] [address] Lauren Amaral MD Cervical cancer screening (Primary Dx); Screening for lung cancer; Encounter for immunization 06/19/2025 Telephone [facility] [address] [place] [address] Heena Abbasi MD Appointment Request 06/19/2025 Travel 06/18/2025 Telephone [facility] [address] [place] [address] Heena Abbasi MD chart prep 06/13/2025 Orders Only GENERIC EXTERNAL DATA DEPARTMENT Provider, Generic External Data 05/24/2025 Telephone [facility] [address] [place] [address] Heena Abbasi MD 05/23/2025 10:15 AM EDT Office Visit [facility] [address] [place] [address] Heena Abbasi MD Benign hypertension (Primary Dx); Hypercholesterolemia; Chronic atrial fibrillation (CMS/HCC); Insomnia, unspecified type; Acute bilateral low back pain without sciatica; Encounter for annual wellness visit; Cerebrovascular accident (CVA), unspecified mechanism ([facility]) 05/23/2025 Refill [facility] [address] [place] [address] Heena Abbasi MD 05/23/2025 Travel 05/22/2025 Telephone [facility] [address] [place] [address] Heena Abbasi MD Chart Prep 05/16/2025 Orders Only GENERIC EXTERNAL DATA DEPARTMENT Provider, Generic External Data 05/15/2025 Patient Outreach [facility] [address] [place] [address] Heena Abbasi MD Pre-visit Planning (SDOH screening negative and Tobacco screening negative) 05/10/2025 9:00 AM EDT Office Visit [facility] [address] [place] [address] Ravi Neri 05/08/2025 Results Follow-Up [facility] [address] [place] [address] Heena Abbasi MD BI Mammogram Screening Tomosynthesis Bilateral 05/03/2025 10:00 AM EDT Office Visit [facility] [address] [place] [address] Ravi Neri 04/18/2025 Orders Only GENERIC EXTERNAL [...] 2:14 PM EDT Oxygen Saturation 98% 06/20/2025 2: 14 PM EDT Inhaled Oxygen Concentration - - Weight 66.6 kg (146 lb 12.8 oz) 06/20/2025 2:14 PM EDT Height 144.8 cm (4' 9 ) 06/20/2025 2:14 PM EDT Body Mass Index 31.77 06/20/2025 2:14 PM EDT Plan of Treatment Upcoming Encounters Date Type Department Care Team ([facility] st Contact Info) Description 08/06/2025 1:15 PM EST Office Visit [facility] [address] [place] [address] Lauren Amaral MD [address] [place] [address] Health Maintenance Due Date Last Done Comments [...] Cancer Screening 06/26/2025 Dental X-Ray: Bitewings 11/25/2025 11/25/19 25, 12/14/2023, 07/29/2022 Mammogram 05/03/2026 05/03/2025, 08/0 09/2023, 04/06/2023, Additional history exists SDOH Screening 05/15/2026 05/15/2025 Alcohol/Substance Use Screening 05/23/2026 05/23/2025 Depression Screening 05/23/2026 05/23/2025, 05/23/20 Disability Screening 05/23/2026 05/23/2025 Tobacco Screening 06/20/2026 06/20/2025 Dental X-Ray: Full Mouth 12/14/2026 12/14/2023, 12/2018 [...] Procedure Name Priority Date/Time Associated Diagnosis Comments CT ABDOMEN PELVIS W CONTRAST Urgent 07/16/2025 9:34 AM EDT Right flank pain Right lower quadrant pain PROTHROMBIN TIME WHOLE BLD POC Routine 07/11/2025 [...] Recently Relevant to Health Maintenance Results * CT Abdomen Pelvis w/ Contrast (07/16/2025 9:34 AM EDT) Anatomical Region Laterality Modality Body, Pelvis, Abdomen Computed T omography 07/16/2025 9:34 AM EDT Narrative 07/16/2025 10:05 AM EDT [address] [address] [address] Scan Report Signed Patient: Omaira Holly MR#: [id number] : 1965 Acct:[id number] Age/Sex: 60 / F ADM Date: 07/16/25 Loc: HO.CT Attending Dr: Hodan Hanna MD Ordering Physician: Hodan Hanna MD Date of Service: 07/16/25 Procedure(s): CT abdomen pelvis w IV con Accession Number(s): [id number] cc: Hodan Hanna MD; Heena Abbasi MD Report Number: [id number]: Total DLP = 367.00 mGy-cm Reason for Exam: rule out appendicitis EXAMINATION: CT ABDOMEN PELVIS WITH IV CONTRAST HISTORY: rule out appendicitis COMPARISON: There are no prior studies for available comparison. TECHNIQUE: CT scan of the abdomen and pelvis was performed following administration of 85 mL Omnipaque 350 using standard departmental protocol. Coronal and sagittal reformatted images were generated and reviewed. The patient received oral contrast material. This CT exam was performed with one or more of the following dose reduction techniques: automated exposure control, adjustment of the mA and/or kV according to patient size, use of iterative reconstruction technique. DLP: 367 mGy-cm FINDINGS: LOWER CHEST: The visualized lung bases are clear. There is no pleural effusion. CARDIOVASCULATURE: The heart is normal in size. There is no pericardial effusion. LIVER: The liver is normal in size and contour. There are subcentimeter hypodensities in the left lobe which are too small to accurately characterize. The hepatic and portal veins are patent. GALLBLADDER / BILE DUCTS: The gallbladder is surgically absent. There is no intra or extrahepatic biliary ductal dilatation. SPLEEN: The spleen is normal in size. No focal splenic lesion is identified. PANCREAS: The pancreas is unremarkable in appearance. ADRENAL GLANDS: Within normal limits. KIDNEYS/RETROPERITONEUM: There is extensive bilateral renal scarring likely represents chronic pyelonephritis. No evidence of acute pyelonephritis. No renal calculi are identified. There is no hydronephrosis. No renal masses are identified. LYMPH NODES: No abdominal or pelvic lymphadenopathy. VASCULATURE: The abdominal aorta is normal in caliber. MESENTERY/PERITONEUM: No free fluid. No masses. There is no free intraperitoneal gas. STOMACH: The stomach is unremarkable. SMALL BOWEL: The small bowel is normal in caliber. COLON: There is a moderate amount of stool throughout the colon. APPENDIX: Normal. URINARY BLADDER/PELVIC ORGANS: The urinary bladder is collapsed, limiting evaluation. The uterus is unremarkable. BONES / SOFT TISSUES: No suspicious bony or soft tissue abnormalities. CT/CT abdomen pelvis w IV con IMPRESSION: 1. Moderate amount of stool throughout the colon. 2. A normal appendix is visualized. 3. Extensive bilateral renal scarring, likely representing chronic pyelonephritis. Electronically signed by: Kai Elizalde MD 07/16/2025 10:02 AM EDT RP Dictated By: Kai Elizalde MD Signed By: <Electronically signed by Kai Elizalde MD in OV> 07/16/25 1002 DD/ TD/TT: 07/16/2547 Legal Manager: Procedure Note Donotuseinterpreter, Image - 07/16/[address] [place] [address] [address] Scan Report Signed Patient: Jose Holly#: [id number] : 1965Acct:[id number] Age/Sex: 60 / FADM Date: 07/16/25 Loc: HO.CT Attending Dr: Hodan Hanna MD Ordering Physician: Hodan Hanna MD Date of Service: 07/16/25 Procedure(s): CT abdomen pelvis w IV con Accession Number(s): [id number] cc: Hodan Hanna MD; Heena Abbasi MD Report Number: [id number]: Total DLP = 367.00 mGy-cm Reason for Exam: rule out appendicitis EXAMINATION: CT ABDOMEN PELVIS WITH IV CONTRAST HISTORY: rule out appendicitis COMPARISON: There are no prior studies for available comparison. TECHNIQUE: CT scan of the abdomen and pelvis was performed following administration of 85 mL Omnipaque 350 using standard departmental protocol. Coronal and sagittal reformatted images were generated and reviewed. The patient received oral contrast material. This CT exam was performed with one or more of the following dose reduction techniques: automated exposure control, adjustment of the mA and/or kV according to patient size, use of iterative reconstruction technique. DLP: 367 mGy-cm FINDINGS: LOWER CHEST: The visualized lung bases are clear. There is no pleural effusion. CARDIOVASCULATURE: The heart is normal in size. There is no pericardial effusion. LIVER: The liver is normal in size and contour. There are subcentimeter hypodensities in the left lobe which are too small to accurately characterize. The hepatic and portal veins are patent. GALLBLADDER / BILE DUCTS: The gallbladder is surgically absent. There is no intra or extrahepatic biliary ductal dilatation. SPLEEN: The spleen is normal in size. No focal splenic lesion is identified. PANCREAS: The pancreas is unremarkable in appearance. ADRENAL GLANDS: Within normal limits. KIDNEYS/RETROPERITONEUM: There is extensive bilateral renal scarring likely represents chronic pyelonephritis. No evidence of acute pyelonephritis. No renal calculi are identified. There is no hydronephrosis. No renal masses are identified. LYMPH NODES: No abdominal or pelvic lymphadenopathy. VASCULATURE: The abdominal aorta is normal in caliber. MESENTERY/PERITONEUM: No free fluid. No masses. There is no free intraperitoneal gas. STOMACH: The stomach is unremarkable. SMALL BOWEL: The small bowel is normal in caliber. COLON: There is a moderate amount of stool throughout the colon. APPENDIX: Normal. URINARY BLADDER/PELVIC ORGANS: The urinary bladder is collapsed, limiting evaluation. The uterus is unremarkable. BONES / SOFT TISSUES: No suspicious bony or soft tissue abnormalities. CT/CT abdomen pelvis w IV con IMPRESSION: 1. Moderate amount of stool throughout the colon. 2. A normal appendix is visualized. 3. Extensive bilateral renal scarring, likely representing chronic pyelonephritis. Electronically signed by: Kai Elizalde MD 07/16/2025 10:02 AM EDT Dictated By: Kai Elizalde MD Signed By: <Electronically signed by Kai Elizalde MD in OV> 07/16/25 1002 DD/ 0934 TD/TT: 07/16/25 0947 Legal Manager: Hodan Hanna MD IMG CT PROCEDURES Edited Re sult - Final * (ABNORMAL) PROTHROMBIN TIME WHOLE BLD POC (07/11/2025 10:21 AM EDT) Only the most recent of4 resultswithin the time period is included. Protime 32.8(H) 11.1 - 13.5 sec [facility] 07/11/2025 10:2 1 AM EDT 07/11/2025 10:23 AM EDT us Generic External Data Provider LAB BLOOD ORDERAB LES Final Result Performing Organization Address [facility] de Phone Number [facility] [address] [place] [address] [phone] * (ABNORMAL) ~PT, ~INR - ANTI COAG CLINIC (07/11/2025 10:21 AM EDT) Only the most recent of4 resultswithin the time period is included. Prothrombin Time INR 2.7(H) 0.9 - 1.1 [facility] Comment:METER #: [id number] TERNATIONAL NORMALIZED RATIO (INR) REFERENCE RANGES Reference [...] ORDERAB LES Final Result Performing Organization Address [facility] de Phone Number [facility] [address] [place] [phone] * (ABNORMAL) CBC auto differential (06/20/2025 2:52 PM EDT) White Blood Count 9.0 4.8 - 10.8 X10*3/uL [facility] Red Blood Count 4.57 4.20 - 5.50 X10*6/uL [facility] Hemoglobin 10.3(L) 12.0 - 16.0 g/dl [facility] Hematocrit 33.8(L) 37.0 - 47.0 % [facility] Mean Corpuscular Volume 74.0(L) 80.0 - 98.0 fL [facility] Mean Corpuscular Hemoglobin 22.5(L) 27.0 - 33.0 pg [facility] Mean Corpuscular HGB Conc 30.5(L) 31.0 - 35.0 g/dl [facility] Red Cell Distribution Width 20.1(H) 11.0 - 16.0 % [facility] Platelet Count 599(H) 160 - 400 X10*3/uL [facility] Mean Platelet Volume 9.3(L) 9.4 - 12.3 fL [facility] Neutrophils Percent Auto 60.0 45 - 73 % [facility] Imm Gran Pct Auto 0.3 0.0 - 0.4 % [facility] Lymphocytes Percent Auto 27.0 20 - 40 % [facility] Monocytes Percent Auto 9.9 2 - 11 % [facility] Eosinophils Percent Auto 2.2 0 - 4 % [facility] Basophils Percent Auto 0.6 0 - 2 % [facility] NRBC Pct Auto 0.0 0.0 - 0.2 /100WBC [facility] Neutrophils Absolute Auto 5.4 2.0 - 8.3 x10*3/uL [facility] Imm Gran Abs Auto 0.03 0.00 - 0.03 X10*3/uL [facility] Lymphocytes Absolute Auto 2.4 1.2 - 4.9 X10*3/uL [facility] Monocytes Absolute Auto 0.9 0.1 - 1.2 X10*3/uL [facility] Eosinophils Absolute Auto 0.2 0.0 - 0.4 X10*3/uL [facility] Basophils Absolute Auto 0.1 0.0 - 0.2 X10*3/uL [facility] NRBC Abs Auto 0.000 0.0 - 0.012 X10*3/uL [facility] Blood Venous blood specimen / Unknown 06/20/2025 2:52 PM EDT 06/20/2025 6:09 PM EDT Hodan Hanna MD LAB BLOOD ORDERABLES Final Result Performing Organization Address [facility] Co de Phone Number [facility] [address] [place] [phone] * (ABNORMAL) Sed Rate by Modified Alysonren (06/20/2025 2:52 PM EDT) Pathologist [facility] Erythrocyte Sedimentation Rate 43(H) 0 - 20 MM/HR [facility] Comment:Patients with polycy themia and many hemoglobin abnormalitiesmay have depressed sed rates whereas patients with anemiamay have elevated sed rates. Blood Venous blood specimen / Unknown 06/20/2025 2:52 PM EDT 06/20/2025 6:09 PM EDT us Hodan Hanna MD LAB BLOOD ORDERABLES Final Result Performing Organization Address City/[facility]/ZIP Co de Phone Number [facility] [address] [place] [phone] * (ABNORMAL) C-reactive Protein (06/20/2025 2:52 PM EDT) Pathologist [facility] C Reactive Protein 1.75(H) < or = 0.50 mg/dL [facility] Blood Venous blood specimen / Unknown 06/20/2025 2:52 PM EDT 06/20/2025 6:09 PM EDT us Hodan Hanna MD LAB BLOOD ORDERABLES Final Result Performing Organization Address [facility]/ZIP Co de Phone Number [facility] [address] [place] [phone] * (ABNORMAL) Basic Metabolic Panel (06/20/2025 2:52 PM EDT) Only the most recent of2 resultswithin the time period is included. Sodium 138 135 - 145 mmol/L [facility] Potassium 4.3 3.3 - 5.1 mmol/L [facility] Chloride 108 96 - 108 mmol/L [facility] Carbon Dioxide 23 22 - 29 mmol/L [facility] Anion Gap 11(L) 12 - 20 [facility] Urea Nitrogen (BUN) 19(H) 9 - 16 mg/dL [facility] Creatinine, Serum 0.85 0.5 - 1.4 mg/dL [facility] Estimated Glomerular Filt Rate >60 [facility] Comment:Chronic Kidney Disea se: Estimated GFR < 60 mL/min/1.74k6Krxpuv Kidney Disease: Estimated GFR < 15 mL/min/1.73m2 Glucose 77 60 - 115 mg/dL [facility] Calcium 8.9 8.4 - 10.2 mg/dL [facility] Blood Venous blood specimen / Unknown 06/20/2025 2:52 PM EDT 06/20/2025 6:09 PM EDT us Hodan Hanna MD LAB BLOOD ORDERABLES Final Result [facility] [address] [place] [phone] * HPV High Risk with Reflex to Subtypes (06/19/2025 11:53 AM EDT) HPV High Risk Negative Negative [facility] HPV Genotype 16 Negative Negative [facility] HPV Genotype 18 Negative Negative [facility] Comment:HPV testing performe d at [facility] (CLIA#[id number]), [address] [place] [phone].Testing for HPV was performed using the Donya [...] MD LAB BLOOD ORDERABLES Final Re sult [facility] [address] [place] [phone] * Pap Smear (06/19/2025 12:00 AM EDT) Swab Cervical swab / Unknown 06/19/2025 06/20/2025 6:10 AM EDT Narrative [facility] - 06/22/2025 10:53 AM EDT ----- ------- Name: Omaira Holly Age/Sex: 60/F : 1965 Unit#: [id number] Attend Dr: Lauren Amaral MD Re06/19/25 Status: DEP REF Location: [facility] Disch: ----- ------- SPEC : [id number] RECD: 06/20/25 STATUS: LORRAINE WATSON NUM: [id number] ALF: 06/19/25-[address]: Lauren Amaral MD ENTERED: 06/20/25 SP TYPE: Pap Smr OTHR DR: ORDERED: Pap Smear Interpretation Satisfactory for evaluation. [...] Amaral MD LAB CYTOLOGY ORDERABLES Final Result [facility] [address] [place] [address] [phone] * (ABNORMAL) Urinalysis, Complete, with Reflex to Culture (05/23/2025 10:57 AM EDT) Color Urine Yellow [facility] Appearance Urine Clear [facility] PH 6.0 5.0 - 9.0 [facility] Glucose Urine UA Negative Negative mg/dL [facility] Urine Blood Trace(A) Negative [facility] Specific [place] - Urine 1.015 1.005 - 1.025 [facility] Urine Protein Negative Neg-Trace mg/dL [facility] Urine Ketones Negative Negative mg/dL [facility] Nitrite Urine Negative Negative [facility] Leukocyte Esterase Urine Negative Negative [facility] RBC Urine 0-2 0 - 2 /HPF [facility] Urine WBC 0-5 0 - 5 /HPF [facility] Urine Squamous Epithelial Cell 3-5 0 - 2 /HPF [facility] Urine Bacteria Trace None Seen [facility] Hyaline Casts, Urine 0-2 0 - 2 /LPF [facility] Urine 05/23/2025 10:5 7 AM EDT 05/23/2025 1:57 PM EDT Narrative [facility] - 05/23/2025 2:18 PM EDT [id number], Clean Catch us Heena Abbasi MD LAB URINE ORDERABLES Final Resul t [facility] [address] [place] [phone] * (ABNORMAL) Hepatic Function Panel (05/23/2025 10:52 AM EDT) Bilirubin, Total 0.2 0.0 - 1.0 mg/dL [facility] Bilirubin, Direct <0.2 0.0 - 0.5 mg/dL [facility] Aspartate Amino Transferase 25 5 - 31 U/L [facility] Alanine Aminotransferase 14 0 - 31 U/L [facility] Total Protein 8.3(H) 6.5 - 8.0 g/dL [facility] Albumin Level 4.4 3.5 - 5.0 g/dL [facility] Alkaline Phosphatase 94 39 - 117 U/L [facility] Blood Venous blood specimen / Unknown 05/23/2025 10:52 AM EDT 05/23/2025 1:54 PM EDT Heena Abbasi MD LAB BLOOD ORDERABLES Final Resul t Performing Organization Address [facility] Co de Phone Number [facility] [address] [place] [address] [phone] * (ABNORMAL) Lipid Panel, Standard (05/23/2025 10:52 AM EDT) Triglycerides 76 <150 mg/dL [facility] Comment:Desirable Triglyceri de: less than 150 mg/dLBorderline High Triglyceride 150-199 mg/dLHigh Triglyceride: 200-499 mg/dLVery High Triglyceride: greater than or equal to 5OO mg/dL Cholesterol 184 <200 mg/dL [facility] Comment:Desirable Cholestero l: less than 200 mg/dLBorderline High Cholesterol: 200-239 mg/dLHigh Cholesterol: greater than 239 mg/dL LDL Cholesterol Calculated 107(H) <100 mg/dL [facility] Comment:Desirable LDL: less than 100 mg/dLNear Optimal/Above Optimal LDL: 110- 129 mg/dLBorderline High LDL: 130-159 mg/dLHigh LDL: 160-189 mg/dLVery High LDL: greater than or equal to 190 mg/dL HDL Cholesterol 62 >40 mg/dL [facility] Comment:Desirable HDL: great er than 40 mg/dL Note: This HDL assay may give artificially low results in patients with liver disease. Blood Venous blood specimen / Unknown 05/23/2025 10:52 AM EDT 05/23/2025 1:54 PM EDT Heena Abbasi MD LAB BLOOD ORDERABLES Final Resul t [facility] [address] [place] [phone] * BI Mammogram Screening Tomosynthesis Bilateral (05/03/2025 9:25 AM EDT) Anatomical Region Laterality Modality Breast Bilateral Mammography 05/03/2025 9:25 AM EDT Narrative 05/08/2025 11:51 AM EDT [facility] [address] [place] [address] Mammography Report Signed Patient: Omaira Holly MR#: [id number] : 1965 Acct:[id number] Age/Sex: 60 / F ADM Date: 05/03/25 Loc: HOMitziMAMMO Attending Dr: Heena Abbasi MD Ordering Physician: Heena Abbasi MD Results: 1Negati ve Date of Service: 05/03/25 Follow Up: 1 Year From [facility] Mammogram Procedure(s): MM tomosynthesis screening BI Accession Number(s): [id number] cc: Heena Abbasi MD EXAMINATION: MM SCREENING [...] OV> 05/08/25 1148 DD/ 4 TD/TT: 05/03/25944 Legal Manager: Procedure Note Donotuseinterpreter, Image - 05/08/20[facility] [address] [place], [place] [address] Mammography Report Signed Patient: Omaira HollyMR#: [id number] : 1965Acct:[id number] Age/Sex: 60 / FADM Date: 05/03/25 Loc: HO.MAMMO Attending Dr: Heena Abbasi MD Ordering Physician: Heena Abbasi MDResults: 1Negati ve Date of Service: 05/03/25Follow Up: 1 Year From Orig inal Mammogram Procedure(s): MM tomosynthesis screening BI Accession Number(s): [id number] cc: Heena Abbasi MD EXAMINATION: MM SCREENING [...] OV> 05/08/25 1148 DD/ 4 TD/TT: 05/03/25944 Legal Manager: Heena Abbasi MD IMG BI PROCEDURES Final Result * Cologuard?? colon cancer screening (01/11/2024 9:45 AM EDT) Cologuard Result Negative Negative 01/20/20 12:00 PM EDT [employer] (CLIA #:[id number]) Comment: NEGATIVE TEST RESULT. A negative Cologuard [...] Dobson et al, N Engl J Med 2014;370(14):7493-4402) The normal value (reference range) for this assay is negative. COLOGUARD RE-SCREENING RECOMMENDATION: Periodic colorectal cancer screening is an important part of preventive healthcare for asymptomatic individuals at average risk for colorectal cancer. Following a negative Cologuard result, the [place] [employer] and U.S. Multi-Society Task Force screening guidelines recommend a Cologuard re-screening interval of 3 years. References: [place] [employer] Guideline for Colorectal Cancer Screening: https://www.cancer.org/cancer/grvhz-tlprtb-dqcyxk/kmkwznpfg-yfancqziz-rrspkgl/ac s-rec ommendations.html.; Dane COSTELLO, Feroz CR, Lauro McdanielK, Colorectal Cancer Screening: Recommendations for Physicians and Patients from the U.S. Multi-Society Task Force on Colorectal Cancer Screening , Am J Gastroenterology 2017; 112:9431-1855. TEST DESCRIPTION: Composite algorithmic analysis of stool [...] (Mando Sidhu al, N Engl J Med 2014;370(14):8691-7111.) Cologuard may produce a false negative or false positive result (no colorectal cancer or precancerous polyp present at colonoscopy follow up). A negative Cologuard test result does not guarantee the absence of CRC or advanced adenoma (pre-cancer). The current Cologuard screening interval is every 3 years. ([place] [employer] and U.S. Multi-Society Task Force). Cologuard performance data in a 10,000 patient pivotal study using colonoscopy as the reference method can be accessed at the following location: www.[employer]/results. Additional description of the Cologuard test process, warnings and precautions can be found at www.[employer].com. Stool specimen (specimen) 01/11/2024 9:45 AM EDT 01/13/2024 10:47 AM EDT us Heena Abbasi MD LAB MOLECULAR DIAGNOSTICS MARY [place] Final Result [employer] (CLIA #:[id number]) [address] [place] [address], [place] [phone] from Last 3 Months or Most Recently Relevant to Health Maintenance Insurance [facility] MED[facility]ID STAND [facility] MEDICAID STAND ADULT Care Teams Rim Fire Charger Operator Relationship Specialty Start Date End Date Heena Abbasi MD [address] [place] [address] PCP - General Family Medicine 09/05/12 Eli Higuera Senior Front End EngineerTrainman 03/17/24 Eli Higuera Senior Front End EngineerTrainman 10/05/24 Eli Higuera Senior Front End EngineerTrainman 02/22/25
--- OUTSIDE RECORDS SUMMARY | 2025-07-18 11:56 | XMS_ITS | Encounter Summary ---
Author Organization [employer] Address 75 [facility] 7t [place] [address] Care Team Providers Care Hospital Technician Name Role Phone Heena Abbasi MD Primary Care Provider [phone] Encounter Details Date Type Department Care Team ([facility] Contact Info) Description 06/26/2025 Results Follow-Up [facility] CHC MED & PEDS [address] [place], [place] [phone] Lauren Amaral MD 505 [place] [address] Pap Smear, HPV High Risk with Reflex [...] Description 08/06/2025 1:15 PM EST Office Visit [facility] CHC MED & PEDS 505 [place] [address] Lauren Amaral MD 505 [place] [address] documented as of this encounter Visit Diagnoses Not on filedocumented in this encounter Additional Health Concerns Assessment Noted Time PHQ-9 Depression Total Score: 7 05/23/20 25 10:19 AM EDT documented as of this encounter Care Teams Hospital Technician Relationship Specialty Start Date End Date Heena Abbasi MD [address] [place] [address] PCP - General Family Medicine 09/05/12 Eli Higuera ImmunopathologistFloor Specialist 03/17/24 Eli Higuera ImmunopathologistFloor Specialist 10/05/24 Eli Higuera ImmunopathologistFloor Specialist 02/22/25 documented as of this encounter
--- OUTSIDE RECORDS SUMMARY | 2025-07-18 11:56 | XMS_ITS | Encounter Summary ---
Author Organization [employer] Address 75 [facility] 7t [place] [address] Care Team Providers Care Barber Or Beauty Shop Manager Name Role Phone Heena Abbasi MD Primary Care Provider [phone] Encounter Details Date Type Department Care Team (Late st Contact Info) Description 02/29/2024 Telephone C [facility] [address] [place] [address] Perri Noble, SOREN Social History Tobacco Use [...] 1:15 PM EST Office Visit [facility] MED & PEDS 505 [place] [address] Lauren Amaral MD 505 [place] [address] documented as of this encounter Visit Diagnoses Not on filedocumented in this encounter Additional Health Concerns Assessment Noted Time PHQ-9 Depression Total Score: 5 12/31/19 24 10:57 AM EDT documented as of this encounter Care Teams Barber Or Beauty Shop Manager Relationship Specialty Start Date End Date Heena Abbasi MD [address] [place] [address] PCP - General Family Medicine 09/05/12 Eli Higuera Steam Clothes Press OperatorAdventure Education Teacher 03/17/24 Eli Higuera Steam Clothes Press OperatorAdventure Education Teacher 10/05/24 Eli Higuera Steam Clothes Press OperatorAdventure Education Teacher 02/22/25 documented as of this encounter
--- OUTSIDE RECORDS SUMMARY | 2025-07-18 11:56 | XMS_ITS | Encounter Summary ---
Author Organization [facility] Address 75 [facility] 7t [place] [address] Care Team Providers Care Lower School Music Teacher Name Role Phone Heena Abbasi MD Primary Care Provider [phone] Encounter Details Date Type Department Care Team (Latest Contact Info) Description 11/21/2018 Abstract [facility] CONVERSIONS Dental, Provider, DDS [...] [facility] 505 [place] [address] Lauren Amaral MD 505 [place] [address] documented as of this encounter Visit Diagnoses Not on filedocumented in this encounter Care Teams Lower School Music Teacher Relationship Specialty Start Date End Date Heena Abbasi MD [address] [place] [address] PCP - General Family Medicine 09/05/12 Eli Higuera Oncology NurseSenior Counsel Commercial 03/17/24 Eli Higuera Oncology NurseSenior Counsel Commercial 10/05/24 Eli Higuera Oncology NurseSenior Counsel Commercial 02/22/25 documented as of this encounter
--- OUTSIDE RECORDS SUMMARY | 2025-07-18 11:56 | XMS_ITS | Encounter Summary ---
Author Organization [employer] Address 75 [facility] 7t [place] [address] Care Team Providers Care Floor Framer Name Role Phone Heena Abbasi MD Primary Care Provider [phone] Reason for Visit * Reason Onset Date Comments Dr. Golden medical clearance ?? 11/23/2024 Encounter Details Date Type Department Care Team (Late st Contact Info) Description 11/23/2024 Telephone C [facility] ADULT DENTAL [address] [place] [address] Reynoso medical clearance [...] Upcoming Encounters Date Type Department Care Team ([facility] st Contact Info) Description 08/06/2025 1:15 PM EST Office Visit [facility] CHC MED & PEDS 505 [place] [address] Lauren Amaral MD 505 [place] [address] documented as of this encounter Visit Diagnoses Not on filedocumented in this encounter Additional Health Concerns Assessment Noted Time PHQ-9 Depression Total Score: 5 12/31/19 24 10:57 AM EDT documented as of this encounter Care Teams Floor Framer Relationship Specialty Start Date End Date Heena Abbasi MD [address] [place] [address] PCP - General Family Medicine 09/05/12 Eli Higuera Concrete Tile Machine OperatorProduction Service Manager 03/17/24 Eli Higuera Concrete Tile Machine OperatorProduction Service Manager 10/05/24 Eli Higuera Concrete Tile Machine OperatorProduction Service Manager 02/22/25 documented as of this encounter
--- OUTSIDE RECORDS SUMMARY | 2025-07-18 11:56 | XMS_ITS | Encounter Summary ---
Author Organization [employer] Address 75 [facility] 7 [place] [address] Care Team Providers Care Transmission Engineer Name Role Phone Heena Abbasi MD Primary Care Provider [phone] Reason for Referral * Imaging (Urgent) - Closed Specialty Diagnoses / Procedures Referred By Naomi clark Referred To Contact Radiology Diagnoses Right flank pain Right lower quadrant pain Procedures CT Abdomen Pelvis w/ Contrast Hodan Hanna MD [address] [place] [address] Phone: tel: fax: [address] Phone: tel: fax: Referral ID Status Reason Start Date Expiration Date Visits Re quested Visits Authorized [id number] Closed 06/27/2025 06/27/2026 1 1 Encounter Details Date Type Department Care Team (Late st Contact Info) Description 06/27/2025 Orders Only [facility] CHC MED & PEDS [address] [place] [address] Hodan Hanna MD 505 [place] [address] Right flank pain (Primary Dx); Right lower [...] Description 08/06/2025 1:15 PM EST Office Visit [facility] CHC MED & PEDS 505 [place] [address] Lauren Amaral MD 505 [place] [address] documented as of this encounter Procedures Procedure Name Priority Date/Time Associated Diagnosis Comments CT ABDOMEN PELVIS W CONTRAST Urgent 07/16/2025 9:34 AM EDT Right flank pain Right lower quadrant pain documented in this encounter Results * CT Abdomen Pelvis w/ Contrast (07/16/2025 9:34 AM EDT) Anatomical Region Laterality Modality Body, Pelvis, Abdomen Computed T omography 07/16/2025 9:34 AM EDT Narrative 07/16/2025 10:05 AM EDT [place] [address] [address] Scan Report Signed Patient: Omaira Holly MR#: [id number] : 1965 Acct:[id number] Age/Sex: 60 / F ADM Date: 07/16/25 Loc: HO.CT Attending Dr: Hodan Hanna MD Ordering Physician: Hodan Hanna MD Date of Service: 07/16/25 Procedure(s): CT abdomen pelvis w IV con Accession Number(s): [id number] cc: Hodan Hanna MD; Heena Abbasi MD Report Number: [id number]: Total DLP = 367.00 mGy-cm Reason for [...] 07/16/25 1002 DD/ 0934 TD/TT: 07/16/25 0947 Cheese Specialist: Procedure Note Donotuseinterpreter, Image - 07/16/[address] [address] [address] Scan Report Signed Patient: Jose Holly#: [id number] : 1965Acct:[id number] Age/Sex: 60 / FADM Date: 07/16/25 Loc: HO.CT Attending Dr: Hodan Hanna MD Ordering Physician: Hoadn Hanna MD Date of Service: 07/16/25 Procedure(s): CT abdomen pelvis w IV con Accession Number(s): [id number] cc: Hodna Hanna MD; Heena Abbasi MD Report Number: [id number]: Total DLP = 367.00 mGy-cm Reason for [...] 07/16/25 1002 DD/ 0934 TD/TT: 07/16/25 0947 Cheese Specialist: us Hodan Hanna MD IMG CT PROCEDURES Edited Re sult - Final documented in this encounter Visit Diagnoses Diagnosis Right flank pain- Primary Abdominal pain, unspecified site Right lower quadrant pain documented in this encounter Additional Health Concerns Assessment Noted Time PHQ-9 Depression Total Score: 7 05/23/20 10:19 AM EDT documented as of this encounter Care Teams Transmission Engineer Relationship Specialty Start Date End Date Heena Abbasi MD [address] [place] [address] PCP - General Family Medicine 09/05/12 Eli Higuera Manager BalanceDirector Sales Training 03/17/24 Eli Higuera Manager BalanceDirector Sales Training 10/05/24 Eli Higuera Manager BalanceDirector Sales Training 02/22/25 documented as of this encounter
--- OUTSIDE RECORDS SUMMARY | 2025-07-18 11:57 | XMS_ITS | Encounter Summary ---
Author Organization [employer] Address 75 [facility] 7t [place] [address] Care Team Providers Care Supervisor Grain And Yeast Plants Name Role Phone Heena Abbasi MD Primary Care Provider [phone] Encounter Details Date Type Department Care Team (Late st Contact Info) Description 12/31/2023 Orders Only [facility] CHC MED & PEDS 505 [place], [place] [phone] Heena Abbasi MD 505 [place], [place] [phone] Social History Tobacco Use Types Packs/Day Years [...] Description 08/06/2025 1:15 PM EST Office Visit [facility] CHC MED & PEDS 505 [place] [address] Lauren Amaral MD 505 [place] [address] documented as of this encounter Visit Diagnoses Not on filedocumented in this encounter Additional Health Concerns Assessment Noted Time PHQ-9 Depression Total Score: 5 12/31/19 24 10:57 AM EDT documented as of this encounter Care Teams Supervisor Grain And Yeast Plants Relationship Specialty Start Date End Date Heena Abbasi MD [address] [place] [address] PCP - General Family Medicine 09/05/12 Eli Higuera Wellness Health CoachGeodetic Survey Director 03/17/24 Eli Higuera Wellness Health CoachGeodetic Survey Director 10/05/24 Eli Higuera Wellness Health CoachGeodetic Survey Director 02/22/25 documented as of this encounter
--- OUTSIDE RECORDS SUMMARY | 2025-07-18 11:57 | XMS_ITS | Encounter Summary ---
Author Organization [employer] Address 75 [facility] 7t [place] [address] Care Team Providers Care Manager Mission Name Role Phone Heena Abbasi MD Primary Care Provider [phone] Reason for Visit * Reason Onset Date Comments Med Refill 03/30/2023 Encounter Details Date Type Department Care Team ([facility] st Contact Info) Description 03/30/2023 Telephone [facility] CHC MED & PEDS [address] [place], [place] [phone] Heena Abbasi MD 505 [place] [address] Med Refill Social History Tobacco Use Types [...] - 03/31/2023 8:41 AM EDT Managed by [facility]. Noted INR result of 3.0 [...] [facility] CH[facility] MED & PEDS [address] [place] [address] Lauren Amaral MD [address] [place] [address] documented as of this encounter Visit Diagnoses Not on filedocumented in this encounter Care Teams Manager Mission Relationship Specialty Start Date End Date Heena Abbasi MD [address] [place] [address] PCP - General Family Medicine 09/05/12 Eli Higuera Real Estate Executive AssistantProduction Potter 03/17/24 Eli Higuera Real Estate Executive AssistantProduction Potter 10/05/24 Eli Higuera Real Estate Executive AssistantProduction Potter 02/22/25 documented as of this encounter
--- OUTSIDE RECORDS SUMMARY | 2025-07-18 11:57 | XMS_ITS | Encounter Summary ---
Author Organization [employer] Address 75 [facility] 7t [place] [address] Care Team Providers Care Composing Machine Operator/Tender Name Role Phone Heena Abbasi MD Primary Care Provider [phone] Reason for Visit * Reason Onset Date Comments Med Refill 12/30/2022 Encounter Details Date Type Department Care Team ([facility] st Contact Info) Description 12/30/2022 Telephone [facility] MEDICINE [address] [place] [address] Heena Abbasi MD [address] [place], [place] [phone] Med Refill Social History Tobacco Use Types [...] 12/30/2022 12:39 PM EDT Pt managed by [facility] coumadin clinic. Noted INR of 3.0 on [...] Description 08/06/2025 1:15 PM EST Office Visit [facility] CHC MED & PEDS 505 [place] [address] Lauren Amaral MD [address] [place] [address] documented as of this encounter Visit Diagnoses Not on filedocumented in this encounter Care Teams Composing Machine Operator/Tender Relationship Specialty Start Date End Date Heena Abbasi MD [address] [place] [address] PCP - General Family Medicine 09/05/12 Eli Higuera Print WasherInterceptor Operator 03/17/24 Eli Higuera Print WasherInterceptor Operator 10/05/24 Eli Higuera Print WasherInterceptor Operator 02/22/25 documented as of this encounter
--- OUTSIDE RECORDS SUMMARY | 2025-07-18 11:57 | XMS_ITS | Encounter Summary ---
Author Organization [facility] Address 75 [facility] 7t [place] [address] Care Team Providers Care Floor Helper Name Role Phone Heena Abbasi MD Primary Care Provider [phone] Encounter Details Date Type Department Care Team (Late Contact Info) Description 04/05/2023 Orders Only [facility] MED & PEDS [address] [place] [address] Heena Abbasi MD 505 [place] [address] Social History Tobacco Use Types Packs/Day Years [...] Description 08/06/2025 1:15 PM EST Office Visit [facility] MED & PEDS [address] [place] [address] Lauren Amaral MD 505 [place] [address] documented as of this encounter Visit Diagnoses Not on filedocumented in this encounter Care Teams Floor Helper Relationship Specialty Start Date End Date Heena Abbasi MD [address] [place] [address] PCP - General Family Medicine 09/05/12 Eli Higuera Filter WorkerWood Floor Refinisher 03/17/24 Eli Higuera Filter WorkerWood Floor Refinisher 10/05/24 Eli Higuera Filter WorkerWood Floor Refinisher 02/22/25 documented as of this encounter
--- OUTSIDE RECORDS SUMMARY | 2025-07-18 11:57 | XMS_ITS | Encounter Summary ---
Author Organization [employer] Address 75 [facility] 7t [place] [address] Care Team Providers Care Bottling Room Worker Name Role Phone Heena Abbasi MD Primary Care Provider [phone] Reason for Visit * Reason Onset Date Comments Referral 05/17/2023 Encounter Details Date Type Department Care Team ([facility] st Contact Info) Description 05/17/2023 Telephone [facility] CHC MED & PEDS [address] [place], [place] [phone] Heena Abbasi MD 505 [place] [address] Referral Social History Tobacco Use Types Packs/Day [...] 05/17/2023 10:31 AM EDT Tc from candie ([facility]) requesting referral for pt. Location: [place] [address], [place] Date: n/a Time: n/a Specialty: order dispatcher chief documented in this encounter Plan of Treatment Upcoming Encounters Date Type Department Care Team (Late st Contact Info) Description 08/06/2025 1:15 PM EST Office Visit [facility] MED & PEDS [address] [place] [address] Lauren Amaral MD [address] [place] [address] documented as of this encounter Visit Diagnoses Not on filedocumented in this encounter Care Teams Bottling Room Worker Relationship Specialty Start Date End Date Heena Abbasi MD [address] [place] [address] PCP - General Family Medicine 09/05/12 Eli Higuera Train DirectorHuman Insights Lead Ads Marketing 03/17/24 Eli Higuera Train DirectorHuman Insights Lead Ads Marketing 10/05/24 Eli Higuera Train DirectorHuman Insights Lead Ads Marketing 02/22/25 documented as of this encounter
--- OUTSIDE RECORDS SUMMARY | 2025-07-18 11:57 | XMS_ITS | Encounter Summary ---
Author Organization [employer] Address 75 [facility] 7t [place] [address] Care Team Providers Care Machine Silver Stripper Name Role Phone Heena Abbasi MD Primary Care Provider [phone] Reason for Visit * Reason Onset Date Comments Referral 07/29/2023 Encounter Details Date Type Department Care Team ([facility] st Contact Info) Description 07/29/2023 Telephone [facility] MEDICINE [address] [place] [address] Heena Abbasi MD [address] [place], [place] [address] Referral Social History Tobacco Use Types Packs/Day [...] 1:15 PM EST Office Visit [facility] MED & PEDS 505 [place] [address] Lauren Amaral MD [address] [place] [address] documented as of this encounter Visit Diagnoses Not on filedocumented in this encounter Care Teams Machine Silver Stripper Relationship Specialty Start Date End Date Heena Abbasi MD [address] [place] [address] PCP - General Family Medicine 09/05/12 Eli Higuera Language PathologistBook Author 03/17/24 Eli Higuera Language PathologistBook Author 10/05/24 Eli Higuera Language PathologistBook Author 02/22/25 documented as of this encounter
--- OUTSIDE RECORDS SUMMARY | 2025-07-18 11:57 | XMS_ITS | Encounter Summary ---
Author Organization [employer] [facility] Address 75 [facility] 7t [place] [address] Care Team Providers Care Software Build Engineer Name Role Phone Heena Abbasi MD Primary Care Provider [phone] Encounter Details Date Type Department Care Team (Late Contact Info) Description 01/01/2023 Orders Only [facility] MED & PEDS [address] [place] [address] Heena Abbasi MD 505 [place] [address] Muscle spasm Social History Tobacco Use Types [...] 1:15 PM EST Office Visit [facility] MED & PEDS [address] [place] [address] Lauren Amaral MD 505 [place] [address] documented as of this encounter Visit Diagnoses Diagnosis Muscle spasm Spasm of muscle documented in this encounter Care Teams Software Build Engineer Relationship Specialty Start Date End Date Heena Abbasi MD [address] [place] [address] PCP - General Family Medicine 09/05/12 Eli Higuera Caregiver Assisted LivingEquine Pharmacology Technician 03/17/24 Eli Higuera Caregiver Assisted LivingEquine Pharmacology Technician 10/05/24 Eli Higuera Caregiver Assisted LivingEquine Pharmacology Technician 02/22/25 documented as of this encounter
--- OUTSIDE RECORDS SUMMARY | 2025-07-18 11:57 | XMS_ITS | Encounter Summary ---
Author Organization [employer] Address 75 [facility] 7t [place] [address] Care Team Providers Care Shirt Line Operator Name Role Phone Heena Abbasi MD Primary Care Provider [phone] Encounter Details Date Type Department Care Team (Late st Contact Info) Description 07/16/2025 Orders Only [facility] CHC MED & PEDS 505 [place], [place] [phone] Hodan Hanna MD 505 [place] [address] Chronic pyelonephritis (Primary Dx) Social History Tobacco Use Types Packs/Day Years [...] Description 08/06/2025 1:15 PM EST Office Visit [facility] CHC MED & PEDS 505 [place] [address] Lauren Amaral MD 505 [place] [address] Scheduled Orders Name Type Priority Associated Diagnoses Orde r Schedule Culture, Urine, Routine Microbiology Routine Chronic pyelonephritis Expected: 07/16/2025 (Approximate), Expires: 07/16/2026 documented as of this encounter Visit Diagnoses Diagnosis Chronic pyelonephritis- Primary 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
--- OUTSIDE RECORDS SUMMARY | 2025-07-18 11:57 | XMS_ITS | Encounter Summary ---
Author Organization [facility] Address 75 [facility] 7t [place] [address] Care Team Providers Care Reception Specialist Name Role Phone Heena Abbasi MD Primary Care Provider [phone] Reason for Visit * Reason Onset Date Comments pre tx medication 02/16/2023 Encounter Details Date Type Department Care Team (Late Contact Info) Description 02/16/2023 Telephone [facility] ADULT DENTAL [address] [place], [place] [phone] Socorro Auguste DDS pre tx medication Social [...] Upcoming Encounters Date Type Department Care Team ([facility] Contact Info) Description 08/06/2025 1:15 PM EST Office Visit [facility] MED & PEDS [address] [place] [address] Lauren mAaral MD [address] [place] [address] documented as of this encounter Visit Diagnoses Not on filedocumented in this encounter Care Teams Reception Specialist Relationship Specialty Start Date End Date Heena Abbasi MD [address] [place] [address] PCP - General Family Medicine 09/05/12 Eli Higuera Senior Contracts ManagerMohs Surgeon/General Dermatologist 03/17/24 Eli Higuera Senior Contracts ManagerMohs Surgeon/General Dermatologist 10/05/24 Eli Higuera Senior Contracts ManagerMohs Surgeon/General Dermatologist 02/22/25 documented as of this encounter
--- OUTSIDE RECORDS SUMMARY | 2025-07-18 11:57 | XMS_ITS | Encounter Summary ---
Author Organization [employer] Address [address] [facility] 7t [place] [address] Care Team Providers Care Explosive Ordnance Disposal Manager Name Role Phone Heena Abbasi MD Primary Care Provider [phone] Encounter Details Date Type Department Care Team (Late Contact Info) Description 12/09/2022 Orders Only [facility] MED & PEDS [address] [place] [address] Heena Abbasi MD [address] [place] [address] Social History Tobacco Use Types Packs/Day Years [...] 08/06/2025 1:15 PM EST Office Visit [facility] MED & PEDS [address] [place] [address] Lauren Amaral MD [address] [place] [address] documented as of this encounter Visit Diagnoses Not on filedocumented in this encounter Care Teams Explosive Ordnance Disposal Manager Relationship Specialty Start Date End Date Heena Abbasi MD [address] [place] [address] PCP - General Family Medicine 09/05/12 Eli Higuera Motor Express ClerkStripper Latex 03/17/24 Eli Higuera Motor Express ClerkStripper Latex 10/05/24 Eli Higuera Motor Express ClerkStripper Latex 02/22/25 documented as of this encounter
--- OUTSIDE RECORDS SUMMARY | 2025-07-18 11:57 | XMS_ITS | Encounter Summary ---
Author Organization [employer] Address 75 [facility] 7t [place] [address] Care Team Providers Care S Iron Worker Name Role Phone eHena Abbasi MD Primary Care Provider [phone] Reason for Visit * Reason Onset Date Comments Med Refill 06/09/2023 Encounter Details Date Type Department Care Team ([facility] st Contact Info) Description 06/09/2023 Telephone [facility] CHC MED & PEDS [address] [place], [place] [phone] Heena Abbasi MD [address] [place] [address] Med Refill Social History Tobacco Use Types [...] message pt has refills at pharmacy . Consolidator contacted pharmacy to confirm . [facility] had a system error that was corrected and patient will be picking up script later today . * Telephone Encounter - Mari Miller LPN - 06/09/2023 11:54 AM EDT 90 day supply was sent to [facility] #[id number] on 12/29/22 with 3 refills. * Telephone Encounter - Brianne Wade - 06/09/2023 11:27 AM EDT Tc from pt requesting medication refill on gemfibrozil (Lopid) 600 MG tablet to be sent to [facility]/pharmacy #[id number] - [place], [place] - [address] documented in this encounter Plan of Treatment Upcoming Encounters Date Type Department Care Team (Late st Contact Info) Description 08/06/2025 1:15 PM EST Office Visit [facility] MED & PEDS [address] [place] [address] Lauren Amaral MD [address] [place] [address] documented as of this encounter Visit Diagnoses Not on filedocumented in this encounter Care Teams S Iron Worker Relationship Specialty Start Date End Date Heena Abbasi MD [address] [place] [address] PCP - General Family Medicine 09/05/12 Eli Higuera FluxerSenior Principal 03/17/24 Eli Higuera FluxerSenior Principal 10/05/24 Eli Higuera FluxerSenior Principal 02/22/25 documented as of this encounter
--- OUTSIDE RECORDS SUMMARY | 2025-07-18 11:57 | XMS_ITS | Encounter Summary ---
Author Organization [employer] Address [address] [facility] 7t [place] [address] Care Team Providers Care Manager Inpatient Name Role Phone Heena Abbasi MD Primary Care Provider [phone] Reason for Visit * Reason Onset Date Comments Results 07/17/2025 Encounter Details Date Type Department Care Team ([facility] st Contact Info) Description 07/17/2025 Results Follow-Up [facility] MED & PEDS [address] [place] [address] [address] Abdomen Pelvis w/ Contrast Social History Tobacco Use Types Packs/Day Years [...] encounter Miscellaneous Notes * Telephone Encounter - Arianan Gutierrez RN - 07/17/2025 11:45 AM EDT [facility] Reviewed results, additional testing, and hours of lab today. Pt verbalized understanding and agreement with plan. * Telephone Encounter - Jose Billings - 07/17/2025 11:17 AM EDT Tc from pt returning call regarding message prior. * Telephone Encounter - Arianna Gutierrez RN - 07/17/2025 10:49 AM EDT TC to pt to inform about results and additional testing. No answer. VM left instructing pt to return call to office. * Telephone Encounter - Arianna Gutierrez RN - 07/17/2025 10:49 AM EDT ----- Message from Hodan Hanna MD sent at 07/16/2025 9:25 PM EDT ----- Please call Ms Omaira Holly to inform her CT scan was reviewed and shows that she has moderate amount of stool in the colon. A high fiber diet is recommended, I also recommend adequate fluid intake ( At least 1.2 to 2 liters of water a day ). The CT scan did not show appendicitis. It shows chronic pyelonephritis. I recommend a urine culture to be done BONNY. ----- Message ----- From: Interface, Ris Results In Sent: 07/16/2025 10:05 AM EDT To: Hodan Hanna MD documented in this encounter Plan of Treatment Upcoming Encounters Date Type Department Care Team (Late st Contact Info) Description 08/06/2025 1:15 PM EST Office Visit [facility] MED & PEDS [address] [place] [address] Lauren Amaral MD 505 [place] [address] documented as of this encounter Visit Diagnoses Not on filedocumented in this encounter Additional Health Concerns Assessment Noted Time PHQ-9 Depression Total Score: 7 05/23/20 25 10:19 AM EDT documented as of this encounter Care Teams Manager Inpatient Relationship Specialty Start Date End Date Heena Abbasi MD [address] [place] [address] PCP - General Family Medicine 09/05/12 Eli Higuera Pantograph TransferrerPaving Bed Maker 03/17/24 Eli Higuera Pantograph TransferrerPaving Bed Maker 10/05/24 Eli Higuera Pantograph TransferrerPaving Bed Maker 02/22/25 documented as of this encounter
--- OUTSIDE RECORDS SUMMARY | 2025-07-18 11:57 | XMS_ITS | Encounter Summary ---
Author Organization [employer] Address 75 [facility] 7t [place] [address] Care Team Providers Care Nutrition Consultant Name Role Phone Heena Abbasi MD Primary Care Provider [phone] Encounter Details Date Type Department Care Team (Late Contact Info) Description 03/05/2023 Telephone [facility] ADULT DENTAL [address] [place], [place] [phone] Anthony Arnold [address] [place] [address] Social History Tobacco Use Types Packs/Day Years [...] AM EDT Patient called in with her LEARNING ADMINISTRATOR from her coumadin clinic to report [facility] too high and patient will not be able to be seen. Informed patient to call next week to check schedule for new appt date that will coincide with a new coumadin INR apptdate as well. Patient understood DR documented in this encounter Plan of Treatment Upcoming Encounters Date Type Department Care Team ([facility] Contact Info) Description 08/06/2025 1:15 PM EST Office Visit [facility] MED & PEDS [address] [place] [address] Lauren Amaral MD [address] [place] [address] documented as of this encounter Visit Diagnoses Not on filedocumented in this encounter Care Teams Nutrition Consultant Relationship Specialty Start Date End Date Heena Abbasi MD [address] [place] [address] PCP - General Family Medicine 09/05/12 Eli Higuera Smelting EngineerCopy Chaser 03/17/24 Eli Higuera Smelting EngineerCopy Chaser 10/05/24 Eli Higuera Smelting EngineerCopy Chaser 02/22/25 documented as of this encounter
--- OUTSIDE RECORDS SUMMARY | 2025-07-18 11:57 | XMS_ITS | Encounter Summary ---
Author Organization [employer] Address [address] [facility] 7t [place] [address] Care Team Providers Care Broom Bundler Name Role Phone Heena Abbasi MD Primary Care Provider [phone] Reason for Visit * Reason Onset Date Comments Med Refill 01/31/2025 Encounter Details Date Type Department Care Team ([facility] st Contact Info) Description 01/31/2025 Telephone [facility] MEDICINE [address] [place] [address] Heena Abbasi MD [address] [place], [place] [phone] Med Refill Social History Tobacco Use Types [...] 10:42 AM EDT Medication was sent to [facility] #[id number] on 11/14/24 #90 with 1 refill. * Telephone Encounter - Jeannie Jaimes - 01/31/2025 10:28 AM EDT TC from pt requesting medication refill. Medications needing refill : pantoprazole (ProtoNix) 20 MG EC tablet To be sent to: [facility]/pharmacy #[id number] - [place], [place] - [address] documented in this encounter Plan of Treatment Upcoming Encounters Date Type Department Care Team (Late st Contact Info) Description 08/06/2025 1:15 PM EST Office Visit [facility] MED & PEDS [address] [place] [address] Lauren Amaral MD 505 [place] [address] documented as of this encounter Visit Diagnoses Not on filedocumented in this encounter Additional Health Concerns Assessment Noted Time PHQ-9 Depression Total Score: 5 12/31/19 24 10:57 AM EDT documented as of this encounter Care Teams Broom Bundler Relationship Specialty Start Date End Date Heena Abbasi MD [address] [place] [address] PCP - General Family Medicine 09/05/12 Eli Higuera Machine Operator HelperInspector [employer] 03/17/24 Eli Higuera Machine Operator HelperInspector [employer] 10/05/24 Eli Higuera Machine Operator HelperInspector [employer] 02/22/25 documented as of this encounter
[2025-07-18 14:06] LABS: MANUAL DIFF FLAG NO
[2025-07-18 14:09] LABS: Appearance Urine Clear; Glucose Urine UA Negative (Negative); PH 6.0 (5.0-9.0); Specific Gravity - Urine 1.015 (1.005-1.025); UMIC TRIGGER UACC YES
[2025-07-18 14:10] LABS: Hematocrit 33.0 % (37.0-47.0); Hemoglobin 10.1 g/dl (12.0-16.0); Imm Gran Abs Auto 0.03 X10*3/uL (0.00-0.03); Imm Gran Pct Auto 0.4 % (0.0-0.4); Lymphocytes Absolute Auto 2.3 X10*3/uL (1.2-4.9); Mean Corpuscular HGB Conc 30.6 g/dl (31.0-35.0); Mean Corpuscular Hemoglobin 22.9 pg (27.0-33.0); Mean Corpuscular Volume 74.7 fL (80.0-98.0); NRBC Abs Auto 0.000 X10*3/uL (0.0-0.012); NRBC Pct Auto 0.0 /100WBC (0.0-0.2); Platelet Count 639 X10*3/uL (160-400); Red Blood Count 4.42 X10*6/uL (4.20-5.50); White Blood Count 7.7 X10*3/uL (4.8-10.8)
== END 2025-07-18 09:54 | disposition home or self-care (01) ==
LOC: HO.CHCLDS 09:53
PROVIDERS: Visit Provider Internal Medicine
DX: R10.A1 Flank pain, right side (principal); N11.9 Chronic tubulo-interstitial nephritis, unspecified
CPT/HCPCS: 36415; 81001; 85025; 87086

== ENCOUNTER 2025-07-31 14:17 | Outpatient (AMB) | payer MEDICAID, SELFPAY ==
--- NOTE | 2025-07-31 14:27 | HO.NEPHOV ---
Vital Signs 07/31/25 14:34 Height 4 ft 11 in Weight 144 lb 8 oz BMI 29.2 BP 104/80 Blood Pressure Location Lt brachial Position Sitting Pulse 64 Pulse Source Pulse Oximeter Pulse Oximetry (%) 95 Oxygen Delivery Method Room Air Intake Visit Reasons: ENP: Chronic Pyelonephritis. Delivery Analyst Required: Yes Delivery Analyst Language: Steam Trap Man Services: Delivery Analyst Present Delivery Analyst Name: Kike [id number] Information Interpreted: clinical only Accompanied by: Other Relationship Allergies No Known Allergies Allergy (Mild, Verified 07/31/25 14:33) N/A HPI Comments Details: I had the pleasure of seeing Omaira in consultation for renal scarring picked up as an incidental finding on CT scan of the abdomen when done to rule out appendicitis. She is not a diabetic or hypertensive. She does not get recurrent urinary infections. She has no history of renal calculus. She has no history of UTI as a child, reflux nephropathy, hematuria. She has no history of urine infections during pregnancies. Her blood pressure and renal function has been normal. She has no edema. She has history of atrial fibrillation and is on warfarin. There is no family history of any renal diseases. She has no history of any malignancies, proteinuria or infiltrative renal diseases. She had no specific complaints at the time of this office visit. [facility] Medical History (Updated 07/31/25 @ 14:44 by Kayden Benítez MD) Right sided abdominal pain Acute right-sided low back pain with right-sided sciatica Acute bilateral low back pain Rash Allergic reaction Chronic atrial fibrillation Insomnia Hypercholesterolemia Benign hypertension Stroke High cholesterol Hypertension Surgical History H/O section Family History Mother Cancer of kidney Heart attack Social History Alcohol intake: current Patient Tobacco Use Status: Never used Tobacco Physical Exam Vital Signs: Last Vital Signs Pulse 64 07/31/25 14:34 BP 104/80 07/31/25 14:34 Pulse Ox 95 07/31/25 14:34 Oxygen Delivery Method Room Air 07/31/25 14:34 BMI result Body Mass Index 29.2 Results Reviewed Nephrology Results: Hgb, (12.0-16.0) 10.1 g/dl L 07/18/25 WBC, (4.8-10.8) 7.7 X10*3/uL 07/18/25 Plt Count, (160-400) 639 X10*3/uL H 07/18/25 Sodium, (135-145) 138 mmol/L 06/20/25 Potassium, (3.3-5.1) 4.3 mmol/L 06/20/25 Chloride, (96-108) 108 mmol/L 06/20/25 Carbon Dioxide, (22-29) 23 mmol/L 06/20/25 BUN, (9-16) 19 mg/dL H 06/20/25 Creatinine, (0.5-1.4) 0.85 mg/dL 06/20/25 Calcium, (8.4-10.2) 8.9 mg/dL 06/20/25 Urine Protein, (Neg-Trace) Negative mg/dL 07/18/25 Assessment & Plan Assessment & Plan (1) Scarring of kidney: Code(s): N28.89 - Other specified disorders of kidney and ureter Category: Medical Plan Her renal scarring was picked up as an incidental finding on CT scan of the abdomen when done to rule out appendicitis. She is not a diabetic or hypertensive. She does not get recurrent urinary infections. She has no history of renal calculus. She has no history of UTI as a child, reflux nephropathy, hematuria. She has no history of urine infections during pregnancies. Her blood pressure and renal function has been normal. She has no edema. She has history of atrial fibrillation and is on warfarin. There is no family history of any renal diseases. She has no history of any malignancies, proteinuria or infiltrative renal diseases. There is no need at this moment to do for the extensive testing. I asked her to follow-up with me in a year's time and based on the evaluation at that point, I shall decide whether further workup is needed or not. I reassured her, discussed all these and answered questions. Her PRESSURE VESSEL INSPECTOR was present during the encounter. Interactive [employer] medical instrument cable fabricator was used during the entire encounter. Coding Level of Care Code New Pt Level 4 (17712) Diagnoses Scarring of kidney N28.89
[2025-07-31 14:34] VITALS: BP 104/80; PULSE 64; O2SAT 95; BMI 29.2
--- OUTSIDE RECORDS SUMMARY | 2025-07-31 15:56 | XMS_ITS | Encounter Summary ---
Author Organization [employer] Address 75 [facility] 7t [place] [address] Care Team Providers Care Consulting Software Engineer Name Role Phone Heena Abbasi MD Primary Care Provider [phone] Lauren Aamral MD Primary Care Provider [phone] Encounter Details Date Type Department Care Team ([facility] Contact Info) Description 09/10/2022 Orders Only [facility] MOBILE VACCINE CLINIC [address] [place], [place] [phone] Tierra Ashby LPN Social History Tobacco Use [...] 1:15 PM EST Office Visit [facility] CHC MED & PEDS [address] [place], [place] [phone] Lauren Amaral MD 505 [place] [address] documented as of this encounter Visit Diagnoses Not on filedocumented in this encounter Care Teams Consulting Software Engineer Relationship Specialty Start Date End Date Heena Abbasi MD [address] [place] [address] PCP - General Family Medicine 09/05/12 07/18/25 Lauren Amaral MD [address] [place] [address] PCP - General Family Medicine 07/19/25 Eli Higuera Coal CarrierArchitectural Inspector 03/17/24 Eli Higuera Coal CarrierArchitectural Inspector 10/05/24 Eli Higuera Coal CarrierArchitectural Inspector 02/22/25 documented as of this encounter
--- OUTSIDE RECORDS SUMMARY | 2025-07-31 15:56 | XMS_ITS | Encounter Summary ---
Author Organization [employer] [facility] Address [address] [facility] 7t [place] [address] Care Team Providers Care Bagging Salvager Name Role Phone Heena Abbasi MD Primary Care Provider [phone] Lauren Amaral MD Primary Care Provider [phone] Encounter Details Date Type Department Care Team (Late Contact Info) Description 01/01/2023 Orders Only [facility] MED & PEDS [address] [place], [place] [phone] Heena Abbasi MD [address] [place], [place] [phone] Muscle spasm Social History Tobacco Use Types [...] [facility] MED & PEDS [address] [place], [place] [phone] Lauren Amaral MD [address] [place], [place] [phone] documented as of this encounter Visit Diagnoses Diagnosis Muscle spasm Spasm of muscle documented in this encounter Care Teams Bagging Salvager Relationship Specialty Start Date End Date Heena Abbasi MD [address] [place] [address] PCP - General Family Medicine 09/05/12 07/18/25 Lauren Amaral MD [address] [place] [address] PCP - General Family Medicine 07/19/25 Eli Higuera Director Nursing ServiceEnrollment Advisor 03/17/24 Eli Higuera Director Nursing ServiceEnrollment Advisor 10/05/24 Eli Higuera Director Nursing ServiceEnrollment Advisor 02/22/25 documented as of this encounter
--- OUTSIDE RECORDS SUMMARY | 2025-07-31 15:56 | XMS_ITS | Encounter Summary ---
Author Organization [employer] Address [address] [facility] 7t [place] [address] Care Team Providers Care Heating And Cooling Systems Engineer Name Role Phone Heena Abbasi MD Primary Care Provider [phone] Lauren Amaral MD Primary Care Provider [phone] Encounter Details Date Type Department Care Team (Late st Contact Info) Description 02/29/2024 Telephone C [facility] ADULT DENTAL [address] [place] [address] Perri Noble, SOREN Social History Tobacco Use [...] [facility] MED & PEDS [address] [place] [address] Lauren Amaral MD [address] [place] [address] documented as of this encounter Visit Diagnoses Not on filedocumented in this encounter Additional Health Concerns Assessment Noted Time PHQ-9 Depression Total Score: 5 12/31/19 24 10:57 AM EDT documented as of this encounter Care Teams Heating And Cooling Systems Engineer Relationship Specialty Start Date End Date Heena Abbasi MD [address] [place] [address] PCP - General Family Medicine 09/05/12 07/18/25 Lauren Amaral MD [address] [place] [address] PCP - General Family Medicine 07/19/25 Eli Higuera Putty Mixer And ApplierShop Tailor Apprentice 03/17/24 Eli Higuera Putty Mixer And ApplierShop Tailor Apprentice 10/05/24 Eli Higuera Putty Mixer And ApplierShop Tailor Apprentice 02/22/25 documented as of this encounter
--- OUTSIDE RECORDS SUMMARY | 2025-07-31 15:56 | XMS_ITS | Encounter Summary ---
Author Organization [employer] Address [address] [facility] 7t [place] [address] Care Team Providers Care Sales Recruiter Name Role Phone Heena Abbasi MD Primary Care Provider [phone] Lauren Amaral MD Primary Care Provider [phone] Reason for Visit * Reason Onset Date Comments Referral 07/29/2023 Encounter Details Date Type Department Care Team ([facility] st Contact Info) Description 07/29/2023 Telephone [facility] MEDICINE [address] [place] [address] Heena Abbasi MD [address] [place], [place] [phone] Referral Social History Tobacco Use Types Packs/Day Years Used Date Smoking Tobacco: Former Cigarettes Passive Smoke Exposure: Past Smokeless Tobacco: Never Housing Stability Answer Date Recorded What is your housing situation today? I have phyllisteodora vicente 07/22/[address] you [...] Miscellaneous Notes * Telephone Encounter - Nancy Holly - 07/29/2023 3:53 PM EST Call WM [...] Description 08/06/2025 1:15 PM EST Office Visit [facility] CHC MED & PEDS [address] [place] [address] Lauren Amaral MD [address] [place] [address] documented as of this encounter Visit Diagnoses Not on filedocumented in this encounter Care Teams Sales Recruiter Relationship Specialty Start Date End Date Heena Abbasi MD [address] [place] [address] PCP - General Family Medicine 09/05/12 07/18/25 Lauren Amaral MD [address] [place] [address] PCP - General Family Medicine 07/19/25 Eli Higuera Seasonal Customer Service AssociateAuditor 03/17/24 Eli Higuera Seasonal Customer Service AssociateAuditor 10/05/24 Eli Higuera Seasonal Customer Service AssociateAuditor 02/22/25 documented as of this encounter
--- OUTSIDE RECORDS SUMMARY | 2025-07-31 15:56 | XMS_ITS | Encounter Summary ---
Author Organization [employer] Address 75 [facility] 7t [place] [address] Care Team Providers Care Brand Ambassador Promotional Model Name Role Phone Heena Abbasi MD Primary Care Provider [phone] Lauren Amaral MD Primary Care Provider [phone] Reason for Visit * Reason Onset Date Comments Med Refill 03/30/2023 Encounter Details Date Type Department Care Team ([facility] st Contact Info) Description 03/30/2023 Telephone [facility] CHC MED & PEDS [address] [place], [place] [phone] Heena Abbasi MD [address] [place] [address] Med Refill Social History Tobacco Use Types [...] - 03/31/2023 8:41 AM EDT Managed by [facility] coumadin clinic. Noted INR result of 3.0 dated 03/18/23. Please review request below and advise if needed. Thank you * Telephone Encounter - Brianne Olvera - 03/30/2023 4:37 PM EDT Tc from pt requesting medication refill on warfarin (Coumadin) 4 MG tablet documented in this encounter Plan of Treatment Upcoming Encounters Date Type Department Care Team ([facility] st Contact Info) Description 08/06/2025 1:15 PM EST Office Visit [facility] MED & PEDS [address] [place] [address] Lauren Amaral MD [address] [place] [address] documented as of this encounter Visit Diagnoses Not on filedocumented in this encounter Care Teams Brand Ambassador Promotional Model Relationship Specialty Start Date End Date Heena Abbasi MD [address] [place] [address] PCP - General Family Medicine 09/05/12 07/18/25 Lauren Amaral MD [address] [place] [address] PCP - General Family Medicine 07/19/25 Eli Higuera Caustic Pump OperatorExhaust Emissions Inspector 03/17/24 Eli Higuera Caustic Pump OperatorExhaust Emissions Inspector 10/05/24 Eli Higuera Caustic Pump OperatorExhaust Emissions Inspector 02/22/25 documented as of this encounter
--- OUTSIDE RECORDS SUMMARY | 2025-07-31 15:56 | XMS_ITS | Encounter Summary ---
Author Organization [employer] Address 75 [facility] 7t [place] [address] Care Team Providers Care Credit Card Associate Name Role Phone Lauren Amaral MD Primary Care Provider [phone] Reason for Visit * Reason Comments Pre-visit Planning SDOH screening was c ompleted on 05/15/2025 Encounter Details Date Type Department Care Team ([facility] st Contact Info) Description 07/30/2025 Patient Outreach [facility] MEDICINE [address] [place] [address] Lauren Amaral MD [address] [place] [address] Pre-visit Planning (SDOH screening was completed on 05/15/2025) Social History Tobacco Use Types Packs/Day Years [...] as of this encounter Progress Notes * Kathleen Wilde - 07/30/2025 2:27 PM EST AZAEL Enriquez placed successful outbound call to patient for pre-visit planning. Patient name and confirmed Candie DOLPHIN RESEARCHER. Patient confirms appt date and time, and has transportation arrangements. Biggest concern for appointment at this time is no concerns at the moment. Patient advised to bring to appointment a photo id and insurance card. Appropriate screenings completed in anticipation of appointm ent. documented in this encounter Plan of Treatment Upcoming Encounters Date Type Department Care Team ([facility] st Contact Info) Description 08/06/2025 1:15 PM EST Office Visit [facility] CHC MED & PEDS [address] [place] [address] Lauren Amaral MD [address] [place] [address] documented as of this encounter Visit Diagnoses Not on filedocumented in this encounter Additional Health Concerns Assessment Noted Time PHQ-9 Depression Total Score: 7 05/23/20 25 10:19 AM EDT documented as of this encounter Care Teams Credit Card Associate Relationship Specialty Start Date End Date Lauren Amaral MD [address] [place] [address] PCP - General Family Medicine 07/19/25 Eli Higuera Frame ChangerClinic Director 03/17/24 Eli Higuera Frame ChangerClinic Director 10/05/24 Eli Higuera Frame ChangerClinic Director 02/22/25 documented as of this encounter
--- OUTSIDE RECORDS SUMMARY | 2025-07-31 15:56 | XMS_ITS | Encounter Summary ---
Author Organization [employer] Address 75 [facility] 7t [place] [address] Care Team Providers Care Furnace Worker Name Role Phone Heena Abbasi MD Primary Care Provider [phone] Lauren Amaral MD Primary Care Provider [phone] Reason for Visit * Reason Onset Date Comments Med Refill 06/09/2023 Encounter Details Date Type Department Care Team ([facility] st Contact Info) Description 06/09/2023 Telephone [facility] CHC MED & PEDS [address] [place], [place] [phone] Heena Abbasi MD [address] [place] [address] Med Refill Social History Tobacco Use Types [...] message pt has refills at pharmacy . Pile Driver Operator Helper contacted pharmacy to confirm . [facility] had [facility] system error that was corrected and patient will be picking up script later today . * Telephone Encounter - Mari Miller LPN - 06/09/2023 11:54 AM EDT 90 day supply was sent to [facility] #[id number] on 12/29/22 with 3 refills. * Telephone Encounter - Brianne Wade - 06/09/2023 11:27 AM EDT Tc from pt requesting medication refill on gemfibrozil (Lopid) 600 MG tablet to be sent to [facility]/pharmacy #[id number] - [place], [place] - [address] documented in this encounter Plan of Treatment Upcoming Encounters Date Type Department Care Team (Late st Contact Info) Description 08/06/2025 1:15 PM EST Office Visit [facility] CHC MED & PEDS [address] [place] [address] Lauren Amaral MD [address] [place] [address] documented as of this encounter Visit Diagnoses Not on filedocumented in this encounter Care Teams Furnace Worker Relationship Specialty Start Date End Date Heena Abbasi MD [address] [place] [address] PCP - General Family Medicine 09/05/12 07/18/25 Lauren Amaral MD [address] [place] [address] PCP - General Family Medicine 07/19/25 Eli Higuera Thermoplastic TechnicianEdger Operator 03/17/24 Eli Higuera Thermoplastic TechnicianEdger Operator 10/05/24 Eli Higuera Thermoplastic TechnicianEdger Operator 02/22/25 documented as of this encounter
--- OUTSIDE RECORDS SUMMARY | 2025-07-31 15:56 | XMS_ITS | Encounter Summary ---
Author Organization [employer] Address [address] [place] [address] 7t [place] [address] Care Team Providers Care Bargain Table Clerk Name Role Phone Heena Abbasi MD Primary Care Provider [phone] Lauren Amaral MD Primary Care Provider [phone] Reason for Referral * Consultation (Routine) - Authorized Specialty Diagnoses / Procedures Referred By Naomi clark Referred To Contact Nephrology Diagnoses Chronic pyelonephritis Hodan Hanna MD [address] [place] [address] Phone: tel: fax: [facility] [address] [place] [address] Drive, [address] [place] [address] Phone: tel: fax: Referral ID Status Reason Start Date Expiration Date Visits Requested Visits Authorized [id number] Authorized Specialty Services Required 07/22/2025 07/22/2026 1 1 Encounter Details Date Type Department Care Team ([facility] st Contact Info) Description 07/16/2025 Orders Only [facility] CHC MED & PEDS [address] [place], [place] [phone] Hodan Hanna MD [address] [place], [place] [phone] Chronic pyelonephritis (Primary Dx); Other constipation Social History Tobacco Use Types Packs/Day Years [...] Upcoming Encounters Date Type Department Care Team ([facility] st Contact Info) Description 08/06/2025 1:15 PM EST Office Visit [facility] CHC MED & PEDS [address] [place] [address] Lauren Amaral MD [address] [place] [address] Scheduled Referrals Name Type Priority Associated Diagnoses Orde r Schedule Referral to Nephrology Outpatient Referral Routine Chronic pyelonephritis Expected: 07/22/2025 (Approximate), Expires: 07/22/2026 documented as of this encounter Procedures Procedure Name Priority Date/Time Associated Diagnosis Comments CULTURE, URINE, ROUTINE Routine 07/18/2025 10:00 AM EDT Chronic pyelonephritis documented in this encounter Results * Culture, Urine, Routine (07/18/2025 10:00 AM EDT) Urine Urine specimen obtained by clean catch procedure / Unknown 07/18/2025 10:00 AM EDT 07/18/2025 1:57 PM EDT Comment:[facility] - 07/19/2025 11:08 AM EDT Urine Culture Report Result Urine Culture < 10,000 cfu/ml Specimen Source: Urine clean catch Hodan Hanna MD LAB MICROBIOLOGY - GENERAL ORDERABLES Final Result [facility] [address] [place] [address] [phone] documented in this encounter Visit Diagnoses Diagnosis Chronic pyelonephritis- Primary 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 Other constipation documented in this encounter Additional Health Concerns Assessment Noted Time PHQ-9 Depression Total Score: 7 05/23/20 25 10:19 AM EDT documented as of this encounter Care Teams Bargain Table Clerk Relationship Specialty Start Date End Date Heena Abbasi MD [address] [place] [address] PCP - General Family Medicine 09/05/12 07/18/25 Lauren Amaral MD [address] [place] [address] PCP - General Family Medicine 07/19/25 Eli Higuera Asbestos Siding MechanicManuscript Reader 03/17/24 Eli Higuera Asbestos Siding MechanicManuscript Reader 10/05/24 Eli Higuera Asbestos Siding MechanicManuscript Reader 02/22/25 documented as of this encounter
--- OUTSIDE RECORDS SUMMARY | 2025-07-31 15:56 | XMS_ITS | Encounter Summary ---
Author Organization [employer] Address 75 [facility] 7t [place] [address] Care Team Providers Care Drafter Apprentice Name Role Phone Heena Abbasi MD Primary Care Provider [phone] Lauren Amaral MD Primary Care Provider Reason for Visit * Reason Onset Date Comments Referral 05/17/2023 Encounter Details Date Type Department Care Team ([facility] st Contact Info) Description 05/17/2023 Telephone [facility] CHC MED & PEDS [address] [place], [place] [phone] Heena Abbasi MD [address] [place] [address] Referral Social History Tobacco Use Types Packs/Day [...] dermatology referral. * Telephone Encounter - Brianne Wade - 05/17/2023 10:31 AM EDT Tc from candie ([facility]) requesting referral for pt. Location: [address] [place] Date: n/a Time: n/a Specialty: line erector documented in this encounter Plan of Treatment Upcoming Encounters Date Type Department Care Team (Late st Contact Info) Description 08/06/2025 1:15 PM EST Office Visit [facility] MED & PEDS [address] [place] [address] Lauren Amaral MD [address] [place] [address] documented as of this encounter Visit Diagnoses Not on filedocumented in this encounter Care Teams Drafter Apprentice Relationship Specialty Start Date End Date Heena Abbasi MD [address] [place] [address] PCP - General Family Medicine 09/05/12 07/18/25 Lauren Amaral MD [address] [place] [address] PCP - General Family Medicine 07/19/25 Eli Higuera Home Care And Home Health Aides TeacherData Input Clerk 03/17/24 Eil Higuera Home Care And Home Health Aides TeacherData Input Clerk 10/05/24 Eli Higuera Home Care And Home Health Aides TeacherData Input Clerk 02/22/25 documented as of this encounter
--- OUTSIDE RECORDS SUMMARY | 2025-07-31 15:56 | XMS_ITS | Encounter Summary ---
Author Organization [employer] Address 75 [facility] 7t [place] [address] Care Team Providers Care American History Professor Name Role Phone Heena Abbasi MD Primary Care Provider Lauren Amaral MD Primary Care Provider [phone] Reason for Visit * Reason Onset Date Comments Med Refill 01/31/2025 Encounter Details Date Type Department Care Team ([facility] Contact Info) Description 01/31/2025 Telephone [facility] MEDICINE [address] [place] [address] Heena Abbasi MD [address] [place] [address] Med Refill Social History Tobacco Use Types [...] AM EDT Medication was sent to [facility] #[id number] on 11/14/24 #90 with 1 refill. * Telephone Encounter - Jeannie Jaimes - 01/31/2025 10:28 AM EDT TC from pt requesting medication refill. Medications needing refill : pantoprazole (ProtoNix) 20 MG EC tablet To be sent to: [facility]/pharmacy #[id number] - [place], [place] - [address] documented in this encounter Plan of Treatment Upcoming Encounters Date Type Department Care Team (Late st Contact Info) Description 08/06/2025 1:15 PM EST Office Visit [facility] CHC MED & PEDS [address] [place] [address] Lauren Amaral MD [address] [place] [address] documented as of this encounter Visit Diagnoses Not on filedocumented in this encounter Additional Health Concerns Assessment Noted Time PHQ-9 Depression Total Score: 5 12/31/19 24 10:57 AM EDT documented as of this encounter Care Teams American History Professor Relationship Specialty Start Date End Date Heena Abbasi MD [address] [place] [address] PCP - General Family Medicine 09/05/12 07/18/25 Lauren Amaral MD [address] [place] [address] PCP - General Family Medicine 07/19/25 Eli Higuera Agency OperatorPreventive Maintenance Engineer 03/17/24 Eli Higuera Agency OperatorPreventive Maintenance Engineer 10/05/24 Eli Higuera Agency OperatorPreventive Maintenance Engineer 02/22/25 documented as of this encounter
--- OUTSIDE RECORDS SUMMARY | 2025-07-31 15:56 | XMS_ITS | Encounter Summary ---
Author Organization [facility] Address [address] [facility] 7t [place] [address] Care Team Providers Care Cutlery Grinder Name Role Phone Heena Abbasi MD Primary Care Provider [phone] Lauren Amaral MD Primary Care Provider [phone] Encounter Details Date Type Department Care Team (Latest Contact Info) Description 07/29/2022 Abstract [facility] CONVERSIONS Dental, Provider, DDS Social History [...] Description 08/06/2025 1:15 PM EST Office Visit [facility] CHC MED & PEDS [address] [place] [address] Lauren Amaral MD [address] [place] [address] documented as of this encounter Visit Diagnoses Not on filedocumented in this encounter Care Teams Cutlery Grinder Relationship Specialty Start Date End Date Heena Abbasi MD [address] [place] [address] PCP - General Family Medicine 09/05/12 07/18/25 Lauren Amaral MD [address] [place] [address] PCP - General Family Medicine 07/19/25 Eli Higuera Positive Printer OperatorPersonal Clothing Laundry Aide 03/17/24 Eli Higuera Positive Printer OperatorPersonal Clothing Laundry Aide 10/05/24 Eli Higuera Positive Printer OperatorPersonal Clothing Laundry Aide 02/22/25 documented as of this encounter
--- OUTSIDE RECORDS SUMMARY | 2025-07-31 15:56 | XMS_ITS | Encounter Summary ---
Author Organization [employer] Address 75 [facility] 7t [place] [address] Care Team Providers Care Edge Drummer Name Role Phone Heena Abbasi MD Primary Care Provider [phone] Lauren Amaral MD Primary Care Provider [phone] Reason for Visit * Reason Onset Date Comments Med Refill 12/30/2022 Encounter Details Date Type Department Care Team ([facility] st Contact Info) Description 12/30/2022 Telephone [facility] MEDICINE [address] [place] [address] Heena Abbasi MD [address] [place] [address] Med Refill Social History Tobacco Use Types [...] 12/30/2022 12:39 PM EDT Pt managed by [facility] coumadin clinic. Noted INR of 3.0 on [...] [facility] MED & PEDS [address] [place] [address] Lauren Amaral MD [address] [place] [address] documented as of this encounter Visit Diagnoses Not on filedocumented in this encounter Care Teams Edge Drummer Relationship Specialty Start Date End Date Heena Abbasi MD [address] [place] [address] PCP - General Family Medicine 09/05/12 07/18/25 Lauren Amaral MD [address] [place] [address] PCP - General Family Medicine 07/19/25 Eli Higuera Prepared Foods AssociateReligion Teacher 03/17/24 Eli Higuera Prepared Foods AssociateReligion Teacher 10/05/24 Eli Higuera Prepared Foods AssociateReligion Teacher 02/22/25 documented as of this encounter
--- OUTSIDE RECORDS SUMMARY | 2025-07-31 15:56 | XMS_ITS | Encounter Summary ---
Author Organization [employer] Address [address] [facility] 7t [place] [address] Care Team Providers Care Keypuncher Name Role Phone Heena Abbasi MD Primary Care Provider [phone] Lauren Amaral MD Primary Care Provider [phone] Encounter Details Date Type Department Care Team ([facility] st Contact Info) Description 06/26/2025 Results Follow-Up [facility] CHC MED & PEDS [address] [place], [place] [phone] Lauren Amaral MD [address] [place], [place] [phone] Pap Smear, HPV High Risk with Reflex [...] [facility] MED & PEDS [address] [place] [address] Lauren Amaral MD [address] [place] [address] documented as of this encounter Visit Diagnoses Not on filedocumented in this encounter Additional Health Concerns Assessment Noted Time PHQ-9 Depression Total Score: 7 05/23/20 10:19 AM EDT documented as of this encounter Care Teams Keypuncher Relationship Specialty Start Date End Date Heena Abbasi MD [address] [place] [address] PCP - General Family Medicine 09/05/12 07/18/25 Lauren Amaral MD [address] [place] [address] PCP - General Family Medicine 07/19/25 Eli Higuera Hot Mill Tin RollerAssociate Medical Director 03/17/24 Eli Higuera Hot Mill Tin RollerAssociate Medical Director 10/05/24 Eli Higuera Hot Mill Tin RollerAssociate Medical Director 02/22/25 documented as of this encounter
--- OUTSIDE RECORDS SUMMARY | 2025-07-31 15:56 | XMS_ITS | Encounter Summary ---
Author Organization [employer] Address [address] [facility] 7t [place] [address] Care Team Providers Care Him Analyst Name Role Phone Lauren Amaral MD Primary Care Provider [phone] Encounter Details Date Type Department Care Team ([facility] st Contact Info) Description 07/22/2025 Results Follow-Up [facility] CHC MED & PEDS [address] [place], [place] [phone] Hodan Hanna MD [address] [place] [address] Culture, Urine, Routine Social History Tobacco Use Types Packs/Day Years [...] Telephone Encounter - Arianna Gutierrez RN - 07/27/2025 10:57 AM EST [facility] Reviewed results and recommendations. Pt verbalized understanding and agreement with plan. * Telephone Encounter - Arianna Gutierrez RN - 07/26/2025 10:28 AM EST ----- Message from Hodan Hanna MD sent at 07/22/2025 8:14 PM EST ----- Please call. The CT scan result was reviewed and shows a moderate amount of stools in the colon. Please find out if Ms Omaira Holly is experiencing constipation. I recommend to use Bisacodyl once a day if having constipation. The prescription was sent to pt's pharmacy. The CT scan also shows a finding c/w chronic pyelonephritis w/ normal urine culture. I will refer to Nephrology to get recommendation on further management. ----- Message ----- From: Interface, Lab Results In Sent: 07/19/2025 11:08 AM EST To: Hodan Hanna MD * Result Encounter Note - Hodan Hanna MD - 07/22/2025 8:14 PM EST Please call. The CT scan result was reviewed and shows a moderate amount of stools in the colon. Please find out if Ms Omaira Holly is experiencing constipation. I recommend to use Bisacodyl once aday if having constipation. The prescription was sent to pt's pharmacy. The CT scan also shows a finding c/w chronic pyelonephritis w/ normal urine culture. I will refer to Nephrology to get recommendation on further management. documented in this encounter Plan of Treatment Upcoming Encounters Date Type Department Care Team ([facility] st Contact Info) Description 08/06/2025 1:15 PM EST Office Visit [facility] MED & PEDS [address] [place] [address] Lauren Amaral MD [address] [place] [address] documented as of this encounter Visit Diagnoses Not on filedocumented in this encounter Additional Health Concerns Assessment Noted Time PHQ-9 Depression Total Score: 7 05/23/20 25 10:19 AM EDT documented as of this encounter Care Teams Him Analyst Relationship Specialty Start Date End Date Lauren Amaral MD [address] [place] [address] PCP - General Family Medicine 07/19/25 Eli Higuera Drawing Machine OperatorDiploma Maker 03/17/24 Eli Higuera Drawing Machine OperatorDiploma Maker 10/05/24 Eli Higuera Drawing Machine OperatorDiploma Maker 02/22/25 documented as of this encounter
--- OUTSIDE RECORDS SUMMARY | 2025-07-31 15:56 | XMS_ITS | Encounter Summary ---
Author Organization [employer] Address [address] [facility] [address] [place] [address] Care Team Providers Care Belt And Link Shop Supervisor Name Role Phone Heena Abbasi MD Primary Care Provider [phone] Lauren Amaral MD Primary Care Provider [phone] Encounter Details Date Type Department Care Team ([facility] Contact Info) Description 04/05/2023 Orders Only [facility] CHC MED & PEDS [address] [place], [place] [phone] Heena Abbasi MD [address] [place], [place] [phone] Social History Tobacco Use Types Packs/Day Years [...] 08/06/2025 1:15 PM EST Office Visit [facility] CHC MED & PEDS [address] [place], [place] [phone] Lauren Amaral MD [address] [place], [place] [phone] documented as of this encounter Visit Diagnoses Not on filedocumented in this encounter Care Teams Belt And Link Shop Supervisor Relationship Specialty Start Date End Date Heena Abbasi MD [address] [place] [address] PCP - General Family Medicine 09/05/12 07/18/25 Lauren Amaral MD [address] [place] [address] PCP - General Family Medicine 07/19/25 Eli Higuera Care Process ManagerPrincipal Bioinformatics Specialist 03/17/24 Eli Higuera Care Process ManagerPrincipal Bioinformatics Specialist 10/05/24 Eli Higuera Care Process ManagerPrincipal Bioinformatics Specialist 02/22/25 documented as of this encounter
--- OUTSIDE RECORDS SUMMARY | 2025-07-31 15:56 | XMS_ITS | Encounter Summary ---
Author Organization [employer] Address [address] [facility] 7t [place] [address] Care Team Providers Care Shuttle Filler Name Role Phone Heena Abbasi MD Primary Care Provider [phone] Lauren Amaral MD Primary Care Provider [phone] Reason for Visit * Reason Onset Date Comments Dr. Golden medical clearance ?? 11/23/2024 Encounter Details Date Type Department Care Team (Late st Contact Info) Description 11/23/2024 Telephone [facility]ULT [facility]AL [address] [place] [address] Reynoso medical clearance [...] [facility] MED & PEDS [address] [place] [address] Lauren Amaral MD [address] [place] [address] documented as of this encounter Visit Diagnoses Not on filedocumented in this encounter Additional Health Concerns Assessment Noted Time PHQ-9 Depression Total Score: 5 12/31/19 24 10:57 AM EDT documented as of this encounter Care Teams Shuttle Filler Relationship Specialty Start Date End Date Heena Abbasi MD [address] [place] [address] PCP - General Family Medicine 09/05/12 07/18/25 Lauren Amaral MD [address] [place] [address] PCP - General Family Medicine 07/19/25 Eli Higuera Rubber [employer] 03/17/24 Eli Higuera Rubber [employer] 10/05/24 Eli Higuera Rubber [employer] 02/22/25 documented as of this encounter
--- OUTSIDE RECORDS SUMMARY | 2025-07-31 15:56 | XMS_ITS | Clinical Summary ---
Author Organization [employer] Address [address] [facility] [address] [place] [address] Care Team Providers Care Environmental Studies Program Director Name Role Phone Lauren Amaral MD Primary Care Provider [phone] Allergies No known active allergies Medications Calcium [...] hours prn 90 tablet 1 3 Active fluticasone (Cutivate) 0.005 % ointmentIndicati ons:Eczema, unspecified type APLIQUE AL AREA AFECTADA DOS VECES AL RENAY 30 g 3 3 Active triamcinolone (Kenalog) 0.025 % ointment APPLY [...] SAGE EN LA MANANA 30 tablet 2 4 Active traZODone (Desyrel) 50 MG tabletIndication s:Insomnia, unspecified type TAKE 1 TABLET BY MOUTH AT BEDTIME 30 tablet 2 4 Active Diclofenac Sodium 1 % gelIndications:A cute bilateral low back pain, unspecified whether sciatica present APPLY 1 INCH TOPICALLY ONCE A DAY 100 g 4 Active Lidocaine 5 % creamIndications :Acute right-sided low back pain with right-sided sciatica Apply topically bid 30 g 3 5 Active dextran 70-hypromellose (artificial tears) 0.1-0.3 % ophthalmic solutionIndicati ons:Dry eyes, bilateral Administer 1 drop into both eyes if needed in the morning, at noon, and at bedtime for dry eyes. 30 mL 11 5 026 Active pantoprazole (ProtoNix) 20 MG EC tabletIndication s:GERD without esophagitis TAKE 1 TABLET BY MOUTH BEFORE BREAKFAST 90 tablet 1 5 Active warfarin (Coumadin) 2 MG tablet TAKE 1 TABLET BY ORAL ROUTE EVERY DAY DIRECTED BY THE COUMADIN CLINIC 30 tablet 11 5 Active warfarin (Coumadin) 4 MG tabletIndication s:Chronic atrial fibrillation (CMS/HCC) (HCC) Take 1 tablet by mouth daily OR DIRECTED BY THE COUMADIN CLINIC 30 tablet 1 5 Active gemfibrozil (Lopid) 600 MG tabletIndication s:Hypercholester olemia Take 1 tablet (600 mg) by mouth 2 times daily. 180 tablet 11 5 Active Triamcinolone Acetonide 0.025 % lotion APPLY TO SCALP TWICE A DAY IF NEEDED FOR FLARES, DECREASE USE SYMPTOMS IMPROVE Strength: 0.025 % 60 mL 3 5 Active cyclobenzaprine (Flexeril) 10 MG tablet Take 1 tablet (10 mg) by mouth at bedtime. 30 tablet 5 Active cetirizine (ZyrTEC) 10 MG tablet TAKE 1 TABLET BY MOUTH 1-2 TIMES PER DAY FOR ITCH, RASH 180 tablet 5 Active BP Wash 10 % external wash APPLY TO INFRAMAMMARY 1 TO 2 TIMES PER DAY THEN RINSE 5 Active Clindamycin Phosphate (Clindamycin Phos, Twice-Daily,) 1 % gel APPLY TO INFRAMAMMARY 1 TO 2 TIMES PER DAY AFTER BENZOYL PEROXIDE WASH 5 Active Fluocinolone Acetonide Scalp 0.01 % oil APPLY AT BEDTIME OVERNIGHT UNDER OCCLUSION (DO-RAG) 5 Active polyvinyl alcohol (Liquifilm Tears) 1.4 % ophthalmic solution PLACE 1 DROP IN EACH EYE THREE TIMES DAILY IN THE MORNING, AT NOON, AND AT BEDTIME NEEDED FOR DRY EYES 5 Active bisacodyl (Dulcolax) 5 MG EC tabletIndication s:Other constipation Take 1 tablet (5 mg) by mouth if needed each day for constipation. Do not crush, chew, or split. 30 tablet 5 025 Active Active Problems Problem Noted Date Diagnosed [...] Gentle stretching Short course of flexeril, I corrections counselor about side effect somnolence Acetaminophen 1300mg [...] Encounters Date Type Department Care Team Description 07/30/2025 Patient Outreach [facility] [address] [place] [address] Lauren Amaral MD Pre-visit Planning (SDOH screening was completed on 05/15/2025) 07/22/2025 Results Follow-Up [facility] [address] [place] [address] Hodan Hanna MD Culture, Urine, Routine 07/17/2025 Results Follow-Up [facility] [address], [place] [phone] Arianna Gutierrez RN CT Abdomen Pelvis w/ Contrast 07/16/2025 Orders Only [facility] [address] [place] [address] Hodan Hanna MD Chronic pyelonephritis (Primary Dx); Other constipation 07/11/2025 Orders Only GENERIC EXTERNAL DATA DEPARTMENT Provider, Generic External Data 07/09/2025 11:30 AM EDT Clinical Support [facility] [address] [place] [address] Arianna Gutierrez RN Benign hypertension 07/09/2025 Travel 07/04/2025 Results Follow-Up [facility] [address] [place] [address] Ann Velez RN CBC auto differential, Basic Metabolic Panel, C-reactive Protein, Sed Rate by Modified Westergren 06/27/2025 Orders Only [facility] [address] [place] [address] Hodan Hanna MD Right flank pain (Primary Dx); Right lower quadrant pain 06/27/2025 Telephone [facility] [employer] [address] [place] [phone] ABDOMEN/PELVIS ORDER 06/26/2025 Results Follow-Up [facility] [address] [place] [address] Lauren Amaral MD Pap Smear, HPV High Risk with Reflex to Subtypes 06/20/2025 2:00 PM EDT Office Visit [facility] [address] [place] [address] Hodan Hanna MD Right flank pain (Primary Dx); Right lower quadrant pain 06/20/2025 Travel 06/19/2025 10:20 AM EDT Procedure Visit [facility] [address] [place] [address] Lauren Amaral MD Cervical cancer screening (Primary Dx); Screening for lung cancer; Encounter for immunization 06/19/2025 Telephone [facility] [address] [place] [address] Heena Abbasi MD Appointment Request 06/19/2025 Travel 06/18/2025 Telephone [facility] [address] [place] [address] Heena Abbasi MD chart prep 06/13/2025 Orders Only GENERIC EXTERNAL DATA DEPARTMENT Provider, Generic External Data 05/24/2025 Telephone [facility] [address] [facility] [place] [address] Heena Abbasi MD 05/23/2025 10:15 AM EDT Office Visit [facility] [address] [place] [address] Heena Abbasi MD Benign hypertension (Primary Dx); Hypercholesterolemia; Chronic atrial fibrillation (CMS/HCC); Insomnia, unspecified type; Acute bilateral low back pain without sciatica; Encounter for annual wellness visit; Cerebrovascular accident (CVA), unspecified mechanism (CMS/HCC) 05/23/2025 Refill [facility] [address] [facility] [place] [address] Heena Abbasi MD 05/23/2025 Travel 05/22/2025 Telephone [facility] [address] [facility] [place] [address] Heena Abbasi MD Chart Prep 05/16/2025 Orders Only GENERIC EXTERNAL DATA DEPARTMENT Provider, Generic External Data 05/15/2025 Patient Outreach [facility] [address] [place] [address] Heena Abbasi MD Pre-visit Planning (SDOH screening negative and Tobacco screening negative) 05/10/2025 9:00 AM EDT Office Visit [facility] ADULT DENTAL [address] [place] [address] Ravi Neri 05/08/2025 Results Follow-Up [facility] [address] [place] [address] Heena Abbasi MD BI Mammogram Screening Tomosynthesis Bilateral 05/03/2025 10:00 AM EDT Office Visit [facility] [address] [place] [address] Ravi Neri from Last 3 Months Immunizations Immunization Administration [...] Upcoming Encounters Date Type Department Care Team ([facility] st Contact Info) Description 08/06/2025 1:15 PM EST Office Visit [facility] [address] [place] [address] Lauren Amaral MD [address] [place] [address] Health Maintenance Due Date Last Done Comments [...] 05/23/2030 05/23/2025, 05/04/2024, 02/09/2022, Additional history exists Cervical Cancer Screening [...] Procedure Name Priority Date/Time Associated Diagnosis Comments URINALYSIS, COMPLETE, WITH REFLEX TO CULTURE Routine 07/18/2025 10:00 AM EDT Right flank pain CULTURE, URINE, ROUTINE Routine 07/18/2025 10:00 AM EDT Chronic pyelonephritis CBC WITH AUTO DIFFERENTIAL Routine 07/18/2025 9:55 AM EDT Right flank pain CT ABDOMEN PELVIS W CONTRAST Urgent 07/16/2025 [...] TOMOSYNTHESIS BILATERAL Routine 05/03/2025 9:25 AM EDT PROPHYLAXIS - ADULT Routine 11/24/2024 [...] Relevant to Health Maintenance Results * (ABNORMAL) Urinalysis, Complete, with Reflex to Culture (07/18/2025 10:00 AM EDT) Only the most recent of2 resultswithin the time period is included. Color Urine Yellow [facility] Appearance Urine Clear [facility] PH 6.0 5.0 - 9.0 [facility] Glucose Urine UA Negative Negative mg/dL [facility] Urine Blood Trace(A) Negative [facility] Specific Morrison - Urine 1.015 1.005 - 1.025 [facility] Urine Protein Negative Neg-Trace mg/dL [facility] Urine Ketones Negative Negative mg/dL [facility] Nitrite Urine Negative Negative [facility] Leukocyte Esterase Urine Negative Negative [facility] RBC Urine 0-2 0 - 2 /HPF [facility] Urine WBC 0-5 0 - 5 /HPF [facility] Urine Squamous Epithelial Cell 0-2 0 - 2 /HPF [facility] Urine Bacteria None Seen None Seen [facility] Hyaline Casts, Urine 0-2 0 - 2 /LPF [facility] Urine 07/18/2025 10:0 0 AM EDT 07/18/2025 1:57 PM EDT Narrative [facility] - 07/18/2025 2:14 PM EDT [id number], Clean Catch us Hodan Hanna MD LAB URINE ORDERABLES Final Result [facility] [address] [place] [phone] [phone] * Culture, Urine, Routine (07/18/2025 10:00 AM EDT) Urine Urine specimen obtained by clean catch procedure / Unknown 07/18/2025 10:00 AM EDT 07/18/2025 1:57 PM EDT Comment:UACC Narrative [facility] - 07/19/2025 11:08 AM EDT Urine Culture Report Result Urine Culture < 10,000 cfu/ml Specimen Source: Urine clean catch us Hodan Hanna MD LAB MICROBIOLOGY - GENERAL ORDERABLES Final Result [facility] [address] [place] [phone] * (ABNORMAL) CBC auto differential (07/18/2025 9:55 AM EDT) Only the most recent of2 resultswithin the time period is included. White Blood Count 7.7 4.8 - 10.8 X10*3/uL [facility] Red Blood Count 4.42 4.20 - 5.50 X10*6/uL [facility] Hemoglobin 10.1(L) 12.0 - 16.0 g/dl [facility] Hematocrit 33.0(L) 37.0 - 47.0 % [facility] Mean Corpuscular Volume 74.7(L) 80.0 - 98.0 fL [facility] Mean Corpuscular Hemoglobin 22.9(L) 27.0 - 33.0 pg [facility] Mean Corpuscular HGB Conc 30.6(L) 31.0 - 35.0 g/dl [facility] Red Cell Distribution Width 20.5(H) 11.0 - 16.0 % [facility] Platelet Count 639(H) 160 - 400 X10*3/uL [facility] Mean Platelet Volume 9.1(L) 9.4 - 12.3 fL [facility] Neutrophils Percent Auto 58.2 45 - 73 % [facility] Imm Gran Pct Auto 0.4 0.0 - 0.4 % [facility] Lymphocytes Percent Auto 29.9 20 - 40 % [facility] Monocytes Percent Auto 8.5 2 - 11 % [facility] Eosinophils Percent Auto 2.2 0 - 4 % [facility] Basophils Percent Auto 0.8 0 - 2 % [facility] NRBC Pct Auto 0.0 0.0 - 0.2 /100WBC [facility] Neutrophils Absolute Auto 4.5 2.0 - 8.3 x10*3/uL [facility] Imm Gran Abs Auto 0.03 0.00 - 0.03 X10*3/uL [facility] Lymphocytes Absolute Auto 2.3 1.2 - 4.9 X10*3/uL [facility] Monocytes Absolute Auto 0.7 0.1 - 1.2 X10*3/uL [facility] Eosinophils Absolute Auto 0.2 0.0 - 0.4 X10*3/uL [facility] Basophils Absolute Auto 0.1 0.0 - 0.2 X10*3/uL [facility] NRBC Abs Auto 0.000 0.0 - 0.012 X10*3/uL [facility] Blood Venous blood specimen / Unknown 07/18/2025 9:55 AM EDT 07/18/2025 1:55 PM EDT us Hodan Hanna MD LAB BLOOD ORDERABLES Final Result [facility] [address] [place] [phone] * CT Abdomen Pelvis w/ Contrast (07/16/2025 9:34 AM EDT) Anatomical Region Laterality Modality Body, Pelvis, Abdomen Computed T omography 07/16/2025 9:34 AM EDT Narrative 07/16/2025 10:05 AM EDT [address] [address] [address] Scan Report Signed Patient: Omaira Holly MR#: [id number] : 1965 Acct:[id number] Age/Sex: 60 / F ADM Date: 07/16/25 Loc: HO.CT Attending Dr: Hodan Hanna MD Ordering Physician: Hodan Hanna MD Date of Service: 07/16/25 Procedure(s): CT abdomen pelvis w IV con Accession Number(s): [id number] cc: Hodan Hanna MD; Heena Abbasi MD Report Number: [id number]: Total DLP = 367.00 mGy-cm Reason for [...] 07/16/25 1002 DD/ 0934 TD/TT: 07/16/25 0947 Media Job Titles: Procedure Note Donotuseinterpreter, Image - 07/16/[address] [place] [address] [address] Scan Report Signed Patient: Jose Holly#: [id number] : 1965Acct:[id number] Age/Sex: 60 / FADM Date: 07/16/25 Loc: HO.CT Attending Dr: Hodan Hanna MD Ordering Physician: Hodan Hanna MD Date of Service: 07/16/25 Procedure(s): CT abdomen pelvis w IV con Accession Number(s): [id number] cc: Hodan Hanna MD; Heena Abbasi MD Report Number: [id number]: Total DLP = 367.00 mGy-cm Reason for [...] 07/16/25 1002 DD/ 0934 TD/TT: 07/16/25 0947 Media Job Titles: us Hodan Hanna MD IMG CT PROCEDURES Edited Re sult - Final * (ABNORMAL) PROTHROMBIN TIME WHOLE BLD POC (07/11/2025 10:21 AM EDT) Only the most recent of3 resultswithin the time period is included. Protime 32.8(H) 11.1 - 13.5 sec [facility] 07/11/2025 10:2 1 AM EDT 07/11/2025 10:23 AM EDT Generic External Data Provider LAB BLOOD ORDERAB LES Final Result Performing Organization Address City/[facility]/ZIP Co de Phone Number [facility] [address] [place] [phone] * (ABNORMAL) ~PT, ~INR - ANTI COAG CLINIC (07/11/2025 10:21 AM EDT) Only the most recent of3 resultswithin the time period is included. Pathologist [facility] Prothrombin Time INR 2.7(H) 0.9 - 1.1 [facility] Comment:METER #: [id number] TERNATIONAL NORMALIZED RATIO (INR) REFERENCE RANGES Reference [...] ORDERAB LES Final Result Performing Organization Address City/[facility]/ZIP Co de Phone Number [facility] [address] [place] [phone] * (ABNORMAL) Sed Rate by Modified Alejo (06/20/2025 2:52 PM EDT) Erythrocyte Sedimentation Rate 43(H) 0 - 20 MM/HR [facility] Comment:Patients with polycy themia and many hemoglobin abnormalitiesmay have depressed sed rates whereas patients with anemiamay have elevated sed rates. Blood Venous blood specimen / Unknown 06/20/2025 2:52 PM EDT 06/20/2025 6:09 PM EDT Hodan Hanna MD LAB BLOOD ORDERABLES Final Result Performing Organization Address [facility] Co de Phone Number [facility] [address] [place] [phone] * (ABNORMAL) C-reactive Protein (06/20/2025 2:52 PM EDT) C Reactive Protein 1.75(H) < or = 0.50 mg/dL [facility] Blood Venous blood specimen / Unknown 06/20/2025 2:52 PM EDT 06/20/2025 6:09 PM EDT Hodan Hanna MD LAB BLOOD ORDERABLES Final Result Performing Organization Address [facility] de Phone Number [facility] [address] [place] [phone] * (ABNORMAL) Basic Metabolic Panel (06/20/2025 2:52 PM EDT) Only the most recent of2 resultswithin the time period is included. Sodium 138 135 - 145 mmol/L [facility] Potassium 4.3 3.3 - 5.1 mmol/L [facility] Chloride 108 96 - 108 mmol/L [facility] Carbon Dioxide 23 22 - 29 mmol/L [facility] Anion Gap 11(L) 12 - 20 [facility] Urea Nitrogen (BUN) 19(H) 9 - 16 mg/dL [facility] Creatinine, Serum 0.85 0.5 - 1.4 mg/dL [facility] Estimated Glomerular Filt Rate >60 [facility] Comment:Chronic Kidney Disea se: Estimated GFR < 60 mL/min/1.60i4Pqbvma Kidney Disease: Estimated GFR < 15 mL/min/1.73m2 Glucose 77 60 - 115 mg/dL [facility] Calcium 8.9 8.4 - 10.2 mg/dL [facility] Blood Venous blood specimen / Unknown 06/20/2025 2:52 PM EDT 06/20/2025 6:09 PM EDT us Hodan Hanna MD LAB BLOOD ORDERABLES Final Result Performing Organization Address [facility]/ZIP Co de Phone Number [facility] [address] [place] [phone] * HPV High Risk with Reflex to Subtypes (06/19/2025 11:53 AM EDT) HPV High Risk Negative Negative [facility] HPV Genotype 16 Negative Negative [facility] HPV Genotype 18 Negative Negative [facility] Comment:HPV testing performe d at [facility] (CLIA#[id number]), [address] [place] [address].Testing for HPV was performed using the Donya [...] ORDERABLES Final Re sult Performing Organization Address [facility]/ZIP Co de Phone Number [facility] [address] [place] [phone] * Pap Smear (06/19/2025 12:00 AM EDT) Swab Cervical swab / Unknown 06/19/2025 06/20/2025 6:10 AM EDT Narrative [facility] - 06/22/2025 10:53 AM EDT ----- ------- Name: Omaira Holly Age/Sex: 60/F : 1965 Unit#: [id number] Attend Dr: Lauren Amaral MD Re06/19/25 Status: DEP REF Location: [facility] Disch: ----- ------- SPEC : [id number] RECD: 06/20/25 STATUS: LORRAINE WATSON NUM: [id number] ALF: 06/19/25-[address]: Lauren Amaral MD [...] ------- Signed (signature on file) PAOLA Peñaloza ([facility]) 06/22/25 1053 ----- ------- END OF REPORT Lauren Amaral MD LAB CYTOLOGY ORDERABLES Final Result Performing Organization Address [facility] Co de Phone Number [facility] [address] [place] [phone] * (ABNORMAL) Hepatic Function Panel (05/23/2025 10:52 AM EDT) Bilirubin, Total 0.2 0.0 - 1.0 mg/dL [facility] Bilirubin, Direct <0.2 0.0 - 0.5 mg/dL [facility] Aspartate Amino Transferase 25 5 - 31 U/L [facility] Alanine Aminotransferase 14 0 - 31 U/L [facility] Total Protein 8.3(H) 6.5 - 8.0 g/dL [facility] Albumin Level 4.4 3.5 - 5.0 g/dL [facility] Alkaline Phosphatase 94 39 - 117 U/L [facility] Blood Venous blood specimen / Unknown 05/23/2025 10:52 AM EDT 05/23/2025 1:54 PM EDT us Heena Abbasi MD LAB BLOOD ORDERABLES Final Resul t Performing Organization Address [facility] Co de Phone Number [facility] [address] [place] [phone] * (ABNORMAL) Lipid Panel, Standard (05/23/2025 10:52 AM EDT) Triglycerides 76 <150 mg/dL [facility] Comment:Desirable Triglyceri de: less than 150 mg/dLBorderline High Triglyceride 150-199 mg/dLHigh Triglyceride: 200-499 mg/dLVery High Triglyceride: greater than or equal to 5OO mg/dL Cholesterol 184 <200 mg/dL [facility] Comment:Desirable Cholestero l: less than 200 mg/dLBorderline High Cholesterol: 200-239 mg/dLHigh Cholesterol: greater than 239 mg/dL LDL Cholesterol Calculated 107(H) <100 mg/dL [facility] Comment:Desirable LDL: less than 100 mg/dLNear Optimal/Above Optimal LDL: 110- 129 mg/dLBorderline High LDL: 130-159 mg/dLHigh LDL: 160-189 mg/dLVery High LDL: greater than or equal to 190 mg/dL HDL Cholesterol 62 >40 mg/dL [facility] Comment:Desirable HDL: great er than 40 mg/dL Note: This HDL assay may give artificially low results in patients with liver disease. Blood Venous blood specimen / Unknown 05/23/2025 10:52 AM EDT 05/23/2025 1:54 PM EDT us Heena Abbasi MD LAB BLOOD ORDERABLES Final Resul t [facility] [address], [place] [phone] * BI Mammogram Screening Tomosynthesis Bilateral (05/03/2025 9:25 AM EDT) Anatomical Region Laterality Modality Breast Bilateral Mammography 05/03/2025 9:25 AM EDT Narrative 05/08/2025 11:51 AM EDT [facility] [address] [place] [address] Mammography Report Signed Patient: Omaira Holly MR#: [id number] : 1965 Acct:[id number] Age/Sex: 60 / F ADM Date: 05/03/25 Loc: HO.MAMMO Attending Dr: Heena Abbasi MD Ordering Physician: Heena Abbasi MD Results: 1Negati ve Date of Service: 05/03/25 Follow Up: 1 Year From [facility] Mammogram Procedure(s): MM tomosynthesis screening BI Accession Number(s): [id number] cc: Heena Abbasi MD EXAMINATION: MM SCREENING [...] 05/08/25 1148 DD/ 0925 TD/TT: 05/03/25 0945 Media Job Titles: Procedure Note Donotuseinterpreter, Image - 05/08/2025 [facility] [address] [place] [address] Mammography Report Signed Patient: Jose Holly#: [id number] : 1965Acct:[id number] Age/Sex: 60 / FADM Date: 05/03/25 Loc: MAMMO Attending Dr: Heena Abbasi MD Ordering Physician: Heena Abbasi MDResults: 1Negati ve Date of Service: 05/03/25Follow Up: 1 Year From [facility] Mammogram Procedure(s): MM tomosynthesis screening BI Accession Number(s): [id number] cc: Heena Abbasi MD EXAMINATION: MM SCREENING [...] 05/08/25 1148 DD/ 4 TD/TT: 05/03/25 0945 Media Job Titles: Heena Abbasi MD [facility] [place]EDURES Final Result * Cologuard?? colon cancer screening (01/11/2024 9:45 AM EDT) Cologuard Result Negative Negative 01/20/20 12:00 PM EDT [facility] (CLIA #:[id number]) Comment: NEGATIVE TEST RESULT. A negative Cologuard [...] (Mando Sidhu al, N Engl J Med 2014;370(14):6772-1916) The normal value (reference range) for this assay is negative. COLOGUARD RE-SCREENING RECOMMENDATION: Periodic colorectal cancer screening is an important part of preventive healthcare for asymptomatic individuals at average risk for colorectal cancer. Following a negative Cologuard result, the [employer] Cancer Society and U.S. Multi-Society Task Force screening guidelines recommend a Cologuard re-screening interval of 3 years. References: [employer] Guideline for Colorectal Cancer Screening: https://www.cancer.org/cancer/xwlmu-ykxtuu-zbmmmq/jtfqfyqnu-tylopdfyx-wokvydw/ac s-rec ommendations.html.; Dane DK, Feroz GALE, Lauro McdanielK, Colorectal Cancer Screening: Recommendations for Physicians and Patients from the U.S. Multi-Society Task Force on Colorectal Cancer Screening , Am J Gastroenterology 2017; 112:3878-2663. TEST DESCRIPTION: Composite algorithmic analysis of stool [...] (Mando Sidhu al, N Engl J Med 2014;370(14):1012-8431.) Cologuard may produce a false negative or false positive result (no colorectal cancer or precancerous polyp present at colonoscopy follow up). A negative Cologuard test result does not guarantee the absence of CRC or advanced adenoma (pre-cancer). The current Cologuard screening interval is every 3 years. ([employer] and [place]. Multi-Society Task Force). Cologuard performance data in a 10,000 patient pivotal study using colonoscopy as the reference method can be accessed at the following location: [email or web address]Fandeavor/results. Additional description of the Cologuard test process, warnings and precautions can be found at [email or web address]. Stool specimen (specimen) 01/11/2024 9:45 AM EDT 01/13/2024 10:47 AM EDT Heena Abbasi MD LAB MOLECULAR DIAGNOSTICS [facility] Final Result Blink (CLIA #:[id number]) [place] [address], from Last 3 Months or Most Recently Relevant to Health Maintenance Insurance [id number] ADULT Care Teams Environmental Studies Program Director Relationship Specialty Start Date End Date Lauren Amaral MD [address] [place] [address] PCP - General Family Medicine 07/19/25 Eli Higuera Digital Music InstructorTraffic Warehouse Supervisor 03/17/24 Eli Higuera Digital Music InstructorTraffic Warehouse Supervisor 10/05/24 Eli Higuera Digital Music InstructorTraffic Warehouse Supervisor 02/22/25
--- OUTSIDE RECORDS SUMMARY | 2025-07-31 15:56 | XMS_ITS | Encounter Summary ---
Author Organization [employer] Address [address] [place] [address] 7 [place] [address] Care Team Providers Care Awake Overnight Counselor Name Role Phone Heena Abbasi MD Primary Care Provider [phone] Lauren Amaral MD Primary Care Provider [phone] Reason for Referral * Imaging (Urgent) - Closed Specialty Diagnoses / Procedures Referred By Contac t Referred To Contact Radiology Diagnoses Right flank pain Right lower quadrant pain Procedures CT Abdomen Pelvis w/ Contrast Hodan Hanna MD [address] [place] [address] Phone: tel: fax: [address] Phone: tel: fax: Referral ID Status Reason Start Date Expiration Date Visits Re quested Visits Authorized [id number] Closed 06/27/2025 06/27/2026 1 1 Encounter Details Date Type Department Care Team (Late st Contact Info) Description 06/27/2025 Orders Only [facility] CHC MED & PEDS [address] [place] [address] Hodan Hanna MD [address] [place] [address] Right flank pain (Primary Dx); Right lower [...] Upcoming Encounters Date Type Department Care Team ([facility] st Contact Info) Description 08/06/2025 1:15 PM EST Office Visit [facility] MED & PED[facility] [address] [place] [address] Lauren Amaral MD [address] [place] [address] documented as of this encounter Procedures Procedure [...] AM EDT Narrative 07/16/2025 10:05 AM EDT [place] [address] [address] Scan Report Signed Patient: Omaira Holly MR#: [id number] : 1965 Acct:[id number] Age/Sex: 60 / F ADM Date: 07/16/25 Loc: HO.CT Attending Dr: Hodna Hanna MD Ordering Physician: Hodan Hanna MD Date of Service: 07/16/25 Procedure(s): CT abdomen pelvis w IV con Accession Number(s): [id number] cc: Hodan Hanna MD; Heena Abbasi MD Report Number: [id number]: Total DLP = 367.00 mGy-cm Reason for [...] 07/16/25 1002 DD/ 0934 TD/TT: 07/16/25 0947 Test Lead: Procedure Note Donotuseinterpreter, Image - 07/16/[address] [address] [address] Scan Report Signed Patient: Jose Holly#: [id number] : 1965Acct:[id number] Age/Sex: 60 / FADM Date: 07/16/25 Loc: HO.CT Attending Dr: Hodan Hanna MD Ordering Physician: Hodan Hanna MD Date of Service: 07/16/25 Procedure(s): CT abdomen pelvis w IV con Accession Number(s): [id number] cc: Hodan Hanna MD; Heena Abbasi MD Report Number: [id number]: Total DLP = 367.00 mGy-cm Reason for [...] in OV> 07/16/25 1002 DD/ TD/TT: 07/16/2547 Test Lead: us Hodan Hanna MD IMG CT PROCEDURES Edited Re sult - Final documented in this encounter Visit Diagnoses Diagnosis Right flank pain- Primary Abdominal pain, unspecified site Right lower quadrant pain documented in this encounter Additional Health Concerns Assessment Noted Time PHQ-9 Depression Total Score: 7 05/23/20 10:19 AM EDT documented as of this encounter Care Teams Awake Overnight Counselor Relationship Specialty Start Date End Date Heena Abbasi MD [address] [place] [address] PCP - General Family Medicine 09/05/12 07/18/25 Lauren Amaral MD [address] [place] [address] PCP - General Family Medicine 07/19/25 Eli Higuera Recruiting Team LeadStone Setter 03/17/24 Eli Higuera Recruiting Team LeadStone Setter 10/05/24 Eli Higuera Recruiting Team LeadStone Setter 02/22/25 documented as of this encounter
--- OUTSIDE RECORDS SUMMARY | 2025-07-31 15:56 | XMS_ITS | Encounter Summary ---
Author Organization [employer] Address [address] [facility] [address] [place] [address] Care Team Providers Care Horse Riding Coach Or Instructor Name Role Phone Heena Abbasi MD Primary Care Provider [phone] Lauren Amaral MD Primary Care Provider [phone] Encounter Details Date Type Department Care Team ([facility] Contact Info) Description 12/09/2022 Orders Only [facility] CHC MED & PEDS [address] [place], [place] [phone] Heena Abbasi MD [address] [place], [place] [phone] Social History Tobacco Use Types Packs/Day Years [...] [facility]S [address] [place], [place] [phone] Lauren Amaral MD [address] [place], [place] [phone] documented as of this encounter Visit Diagnoses Not on filedocumented in this encounter Care Teams Horse Riding Coach Or Instructor Relationship Specialty Start Date End Date Heena Abbasi MD [address] [place] [address] PCP - General Family Medicine 09/05/12 07/18/25 Lauren Amaral MD [address] [place] [address] PCP - General Family Medicine 07/19/25 Eli Higuera Hand AssemblerStreet Light Servicer Supervisor 03/17/24 Eli Higuera Hand AssemblerStreet Light Servicer Supervisor 10/05/24 Eli Higuera Hand AssemblerStreet Light Servicer Supervisor 02/22/25 documented as of this encounter
--- OUTSIDE RECORDS SUMMARY | 2025-07-31 15:56 | XMS_ITS | Encounter Summary ---
Author Organization [employer] Address [address] [facility] 7t [place] [address] Care Team Providers Care Global Process Owner Name Role Phone Heena Abbasi MD Primary Care Provider [phone] Lauren Amaral MD Primary Care Provider [phone] Reason for Visit * Reason Onset Date Comments pre tx medication 02/16/2023 Encounter Details Date Type Department Care Team ([facility] Contact Info) Description 02/16/2023 Telephone [facility] ADULT [facility] [address] [place] [address] Socorro Auguste DDS pre tx medication Social [...] [facility] Contact Info) Description 08/06/2025 1:15 PM EST Office Visit [facility] CHC MED & PEDS [address] [place] [address] Lauren Amaral MD [address] [place] [address] documented as of this encounter Visit Diagnoses Not on filedocumented in this encounter Care Teams Global Process Owner Relationship Specialty Start Date End Date Heena Abbasi MD [address] [place] [address] PCP - General Family Medicine 09/05/12 07/18/25 Lauren Amaral MD [address] [place] [address] PCP - General Family Medicine 07/19/25 Eli Higuera Industrial Safety And Health SpecialistNatural Resources Professor 03/17/24 Eli Higuera Industrial Safety And Health SpecialistNatural Resources Professor 10/05/24 Eli Higuera Industrial Safety And Health SpecialistNatural Resources Professor 02/22/25 documented as of this encounter
--- OUTSIDE RECORDS SUMMARY | 2025-07-31 15:56 | XMS_ITS | Encounter Summary ---
Author Organization [employer] [facility] Address [address] [facility] 7t [place] [address] Care Team Providers Care Sharepoint Solutions Architect Name Role Phone Heena Abbasi MD Primary Care Provider [phone] Lauren Amaral MD Primary Care Provider [phone] Encounter Details Date Type Department Care Team (Latest Contact Info) Description 11/21/2018 [facility], Provider, DDS Social [...] [facility] [address] [place] [address] Lauren Amaral MD [address] [place] [address] documented as of this encounter Visit Diagnoses Not on filedocumented in this encounter Care Teams Sharepoint Solutions Architect Relationship Specialty Start Date End Date Heena Abbasi MD [address] [place] [address] PCP - General Family Medicine 09/05/12 07/18/25 Lauren Amaral MD [address] [place] [address] PCP - General Family Medicine 07/19/25 Eli Higuera Software Tools Build EngineerMixing Tumbler Operator 03/17/24 Eli Higuera Software Tools Build EngineerMixing Tumbler Operator 10/05/24 Eli Higuera Software Tools Build EngineerMixing Tumbler Operator 02/22/25 documented as of this encounter
--- OUTSIDE RECORDS SUMMARY | 2025-07-31 15:56 | XMS_ITS | Encounter Summary ---
Author Organization [employer] Address [address] [facility] 7t [place] [address] Care Team Providers Care Rag Willow Operator Name Role Phone Heena Abbasi MD Primary Care Provider [phone] Lauren Amaral MD Primary Care Provider Encounter Details Date Type Department Care Team ([facility] st Contact Info) Description 12/31/2023 Orders Only [facility] CHC MED & PEDS [address] [place], [place] [phone] Heena Abbasi MD [address] [place], [place] [phone] Social History Tobacco Use Types Packs/Day Years [...] Questionnaire -2 Score 2 12/31/2023 10:57 AM Vee Olmstead [place] * If you checked off any [...] watching television Several days 12/31/2023 10:57 AM EDT Vee Daigle [place] Moving or speaking so slowly that other people could have noticed? Or the opposite - being so fidgety or restless that you have been moving around a lot more than usual. Not at all 12/31/2023 10:57 AM FERNANDOT Vee Daigle [place] Thoughts that you would [...] 08/06/2025 1:15 PM EST Office Visit [facility] CHC MED & PEDS [address] [place] [address] Lauren Amaral MD [address] [place] [address] documented as of this encounter Visit Diagnoses Not on filedocumented in this encounter Additional Health Concerns Assessment Noted Time PHQ-9 Depression Total Score: 5 12/31/19 24 10:57 AM EDT documented as of this encounter Care Teams Rag Willow Operator Relationship Specialty Start Date End Date Heena Abbasi MD [address] [place] [address] PCP - General Family Medicine 09/05/12 07/18/25 Lauren Amaral MD [address] [place] [address] PCP - General Family Medicine 07/19/25 Eli Higuera Program Director/Music DirectorManager Telecom 03/17/24 Eli Higuera Program Director/Music DirectorManager Telecom 10/05/24 Eli Higuera Program Director/Music DirectorManager Telecom 02/22/25 documented as of this encounter
--- OUTSIDE RECORDS SUMMARY | 2025-07-31 15:56 | XMS_ITS | Encounter Summary ---
Author Organization [employer] Address [address] [facility] 7t [place] [address] Care Team Providers Care Ginning Operator Name Role Phone Heena Abbasi MD Primary Care Provider [phone] Lauren Amaral MD Primary Care Provider Encounter Details Date Type Department Care Team (Late Contact Info) Description 03/05/2023 Telephone [facility] CHC ADULT DENTAL [address] [place], [place] [phone] Anthony Arnold [address] [place], [place] [phone] Social History Tobacco Use Types Packs/Day Years [...] AM EDT Patient called in with her MARKETING ASSISTANT from her coumadin clinic to [facility] high and patient will not be able to be seen. Informed patient to call next week to check schedule for new appt date that will coincide with a new coumadin INR apptdate as well. Patient understood DR documented in this encounter Plan of Treatment Upcoming Encounters Date Type Department Care Team ([facility] Contact Info) Description 08/06/2025 1:15 PM EST Office Visit [facility] CHC MED & PEDS [address] [place] [address] Lauren Amaral MD [address] [place] [address] documented as of this encounter Visit Diagnoses Not on filedocumented in this encounter Care Teams Ginning Operator Relationship Specialty Start Date End Date Heena Abbasi MD [address] [place] [address] PCP - General Family Medicine 09/05/12 07/18/25 Lauren Amaral MD [address] [place] [address] PCP - General Family Medicine 07/19/25 Eli Higuera Hat Brusher MachineScreen And Cyclone Repairer 03/17/24 Eli Higuera Hat Brusher MachineScreen And Cyclone Repairer 10/05/24 Eli Higuera Hat Brusher MachineScreen And Cyclone Repairer 02/22/25 documented as of this encounter
== END 2025-07-31 14:49 | disposition home or self-care (01) ==
PROVIDERS: PCP Student in an Organized Health Care Education/Training Program; Referring Provider Internal Medicine; Visit Provider Internal Medicine Nephrology
DX: N28.89 Other specified disorders of kidney and ureter (principal)
CPT/HCPCS: 99204

== ENCOUNTER → 2025-07-31 14:17 | Outpatient (BNVA) | payer MEDICAID, SELFPAY | PROVIDERS: PCP Student in an Organized Health Care Education/Training Program; Referring Provider Internal Medicine; Visit Provider Internal Medicine Nephrology | DX: N28.89 Other specified disorders of kidney and ureter (principal) | CPT/HCPCS: 99202 ==

== ENCOUNTER → 2025-08-08 10:14 | Outpatient (BNVA) | payer MEDICAID, SELFPAY | PROVIDERS: PCP Student in an Organized Health Care Education/Training Program; Visit Provider Internal Medicine Medical Oncology | DX: Z86.711 Personal history of pulmonary embolism (principal); Z51.81 Encounter for therapeutic drug level monitoring; Z79.01 Long term (current) use of anticoagulants | CPT/HCPCS: 85610; 99211 ==

== ENCOUNTER 2025-08-22 10:18 | Outpatient (AMB) | payer MEDICAID, SELFPAY ==
[2025-08-22 10:24] LABS: Prothrombin Time Whole Bld POC 45.6 sec (11.1-13.5); ~PT, ~INR - Anti Coag Clinic 3.8 (0.9-1.1)
--- NOTE | 2025-08-22 10:32 | MHC.OFFVISCO ---
Intake Intake Visit Reasons: Anticoagulation Allergies No Known Allergies Allergy (Mild, Verified 08/22/25 10:18) N/A Medication List - Last Reconciled 08/22/25 by Itzel Dick RN acetaminophen ER (Tylenol 8 Hour) 650 mg PO Q8H PRN wvmqctd-yrtwafofrwrdo-wiifbkfb 250-250-65 mg (Pain Reliever Plus) 1 tab PO DAILY baclofen 10 mg PO DAILY bisacodyl (Laxative (bisacodyl)) 5 mg PO DAILY PRN cetirizine 10 mg PO DAILY docusate sodium 100 mg PO DAILY ferrous gluconate 324 mg PO DAILY gemfibrozil 600 mg PO BID warfarin 4 mg See Protocol PO DAILY Nursing Note PT.HAS STARTED BACLOFEN THIS WEEK. ALSO STARTED IRON SUPP. 2-3 WEEKS AGO,WHICH MAY BE THE REASON FOR ELEVATED INR TODAY. HOLD WARFARIN TODAY AND CONTINUE 4MGM DAILY AND FOLLOW-UP IN WEEKS. MAY NEED TO LOWER WEEKLY DOSE AT SOME POINT. GOOD UNDERSTANDING OF DOSING INSTR. Anti-Coag Initial Assessment Social Hx Patient Tobacco Use Status: Never used Tobacco alcohol intake: current Coding Level of Care Code Est Patient Level 1 Diagnoses Current use of anticoagulant therapy Z79.01 Assessment & Plan Assessment & Plan (1) Current use of anticoagulant therapy: Code(s): Z79.01 - halfway (current) use of anticoagulants Category: Medical
--- NOTE | 2025-08-22 10:41 | MHC.OFFVISCO ---
Intake Intake Visit Reasons: Anticoagulation Allergies No Known Allergies Allergy (Mild, Verified 08/22/25 10:18) N/A Medication List - Last Reconciled 08/22/25 by Itzel Dick RN acetaminophen ER (Tylenol 8 Hour) 650 mg PO Q8H PRN meyqngo-lccmuhbftgggn-edchhtmi 250-250-65 mg (Pain Reliever Plus) 1 tab PO DAILY baclofen 10 mg PO DAILY bisacodyl (Laxative (bisacodyl)) 5 mg PO DAILY PRN cetirizine 10 mg PO DAILY docusate sodium 100 mg PO DAILY ferrous gluconate 324 mg PO DAILY gemfibrozil 600 mg PO BID warfarin 4 mg See Protocol PO DAILY Anti-Coag Initial Assessment Social Hx Patient Tobacco Use Status: Never used Tobacco alcohol intake: current Coding Level of Care Code Est Patient Level 1 Diagnoses Current use of anticoagulant therapy Z79.01 Assessment & Plan Assessment & Plan (1) Current use of anticoagulant therapy: Code(s): Z79.01 - senior living (current) use of anticoagulants Category: Medical
--- OUTSIDE RECORDS SUMMARY | 2025-08-22 11:46 | XMS_ITS | Clinical Summary ---
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 Internal Name Role Phone Lauren Amaral MD Primary Care Provider [phone] Allergies No known active allergies Medications aspirin-acetami nophen-caffeine (Excedrin Migraine) 250-250-65 MG tabletIndicatio ns:Hypercholest erolemia take 1 tablet by oral route every 8 hours prn 90 tablet 023 Active ammonium lactate (Amlactin) 12 % cream APPLY TO ARMS, TRUNK, AND LEGS TWICE A DAY 024 Active acetaminophen (Tylenol 8 Hour) 650 MG ER tabletIndicatio ns:Acute bilateral low back pain, unspecified whether sciatica present Take 1 tablet (650 mg) by mouth every 8 (eight) hours if needed for moderate pain or mild pain. 30 tablet 024 Active Diclofenac Sodium 1 % gelIndications: Acute bilateral low back pain, unspecified whether sciatica present APPLY 1 INCH TOPICALLY ONCE A DAY 100 g 024 Active dextran 70-hypromellose (artificial tears) 0.1-0.3 % ophthalmic solutionIndicat ions:Dry eyes, bilateral Administer 1 drop into both eyes if needed in the morning, at noon, and at bedtime for dry eyes. 30 mL 025 2025 Active pantoprazole (ProtoNix) 20 MG EC tabletIndicatio ns:GERD without esophagitis TAKE 1 TABLET BY MOUTH BEFORE BREAKFAST 90 tablet 1 025 Active warfarin (Coumadin) 2 MG tablet TAKE 1 TABLET BY ORAL ROUTE EVERY DAY DIRECTED BY THE COUMADIN CLINIC 30 tablet 025 Active gemfibrozil (Lopid) 600 MG tabletIndicatio ns:Hypercholest erolemia Take 1 tablet (600 mg) by mouth 2 times daily. 180 tablet 11 Active Triamcinolone Acetonide 0.025 % lotion APPLY TO SCALP TWICE A DAY IF NEEDED FOR FLARES, DECREASE USE SYMPTOMS IMPROVE Strength: 0.025 % 60 mL 3 Active BP Wash 10 % external wash APPLY TO INFRAMAMMARY 1 TO 2 TIMES PER DAY THEN RINSE Active baclofen (Lioresal) 10 MG tablet Take 1 tablet (10 mg) by mouth 3 times daily. 90 tablet 2 Active ferrous gluconate (Fergon) 324 (38 Fe) MG tablet Take 1 tablet (324 mg) by mouth with breakfast. 90 tablet 1 Active psyllium (Metamucil Smooth Texture) 58.6 % powder Take 5.12 g (3 g of fiber) by mouth 2 times daily. 283 g 11 2025 Active docusate sodium (Colace) 100 MG capsule Take 1 capsule (100 mg) by mouth 2 times daily. 60 capsule 5 Active warfarin (Coumadin) 4 MG tabletIndicatio ns:Chronic atrial fibrillation (CMS/HCC) (HCC) Take 1 tablet by mouth daily OR DIRECTED BY THE COUMADIN CLINIC 30 tablet 1 Active Calcium Carb-Cholecalci ferol 500-10 MG-MCG tablet Take 1 tablet by mouth 1 (one) time each day. 2024 Discontinued(T herapy completed) cyclobenzaprine (Flexeril) 5 MG tablet Take 1 tablet by mouth at bedtime. 2024 Discontinued(T herapy completed) ferrous sulfate 325 (65 Fe) MG tablet Take 1 tablet by mouth 1 (one) time each day. 2024 Discontinued(T herapy completed) lidocaine-prilo jean paul (Emla) 2.5-2.5 % cream APPLY BY TOPICAL ROUTE EVERY DAY NEEDED. 2024 Discontinued(T herapy completed) chlorhexidine (Hibiclens) 4 % external liquidIndicatio ns:Hydradenitis Apply topically if needed each day for wound care. 100 mL 3 023 2024 Discontinued(T herapy completed) fluticasone (Cutivate) 0.005 % ointmentIndicat ions:Eczema, unspecified type APLIQUE AL AREA AFECTADA DOS VECES AL RENAY 30 g 3 023 2024 Discontinued(T herapy completed) triamcinolone (Kenalog) 0.025 % ointment APPLY TO CHEST TWICE DAILY NEEDED FOR FLARES, DECREASE USE SYMPTOMS IMPROVE 024 2024 Discontinued(T herapy completed) FLUoxetine (PROzac) 10 MG tabletIndicatio ns:Flushing, menopausal TOME ELIO TABLETA TODOS LOS SAGE EN LA BELLVUEANA 30 tablet 2 024 2024 Discontinued(T herapy completed) traZODone (Desyrel) 50 MG tabletIndicatio ns:Insomnia, unspecified type TAKE 1 TABLET BY MOUTH AT BEDTIME 30 tablet 2 024 2024 Discontinued(T herapy completed) Lidocaine 5 % creamIndication s:Acute right-sided low back pain with right-sided sciatica Apply topically bid 30 g 3 025 2024 Discontinued(T herapy completed) warfarin (Coumadin) 4 MG tabletIndicatio ns:Chronic atrial fibrillation (CMS/HCC) (HCC) Take 1 tablet by mouth daily OR DIRECTED BY THE COUMADIN CLINIC 30 tablet 1 025 2024 Discontinued(R eorder (will not trigger notification to Pharmacy)) cyclobenzaprine (Flexeril) 10 MG tablet Take 1 tablet (10 mg) by mouth at bedtime. 30 tablet 025 2024 Discontinued(T herapy completed) cetirizine (ZyrTEC) 10 MG tablet TAKE 1 TABLET BY MOUTH 1-2 TIMES PER DAY FOR ITCH, RASH 180 tablet 025 2024 Discontinued(T herapy completed) Clindamycin Phosphate (Clindamycin Phos, Twice-Daily,) 1 % gel APPLY TO INFRAMAMMARY 1 TO 2 TIMES PER DAY AFTER BENZOYL PEROXIDE WASH 2024 Discontinued(T herapy completed) Fluocinolone Acetonide Scalp 0.01 % oil APPLY AT BEDTIME OVERNIGHT UNDER OCCLUSION (DO-RAG) 2024 Discontinued(T herapy completed) polyvinyl alcohol (Liquifilm Tears) 1.4 % ophthalmic solution PLACE 1 DROP IN EACH EYE THREE TIMES DAILY IN THE MORNING, AT NOON, AND AT BEDTIME NEEDED FOR DRY EYES 2024 Discontinued(T herapy completed) bisacodyl (Dulcolax) 5 MG EC tabletIndicatio ns:Other constipation Take 1 tablet (5 mg) by mouth if needed each day for constipation. Do not crush, chew, or split. 30 tablet 2024 zoster vaccine-recombi nant adjuvanted (Shingrix) 50 MCG/0.5ML vaccine Inject 0.5 mL (50 mcg) into the muscle 1 (one) time for 1 dose. 0.5 mL 2024 Active Problems Problem Noted Date Diagnosed Date Spastic hemiplegia, unspecif ied etiology, unspecified laterality 08/06/2025 Stroke (CMS/[facility]) 08/06/2025 Migraine with aura and witho ut status migrainosus, not intractable 08/06/2025 Other constipation 08/06/2025 Gastroesophageal reflux disease without esophagi tis 08/06/2025 Acute right-sided low back pain with right-sided sciatica 10/13/2024 Assessment & Plan (10/13/2024 12:19 PM EST): Ongoing x3 months. -prescribed Lidocaine cream -ordered lumbar XR. IMPRESSION: 1. No acute findings of the lumbar spine. 2. Degenerative changes as discussed. Right sided abdominal pain 10/13/2024 Assessment & Plan (10/13/2024 10:18 AM EST): Unknown etiology. Ordered CBC and CRP. Allergic reaction 07/02/2023 Assessment & Plan (07/02/2023 10:47 AM EDT): Benadryl 25mg Q 6hrs Avoid triggers triacinolone for rash Ketotifen for eyes Patient educated about red flags and ED precautions she understood if airway compromise, if swallowing problems or mouth swelling to go straight BONNY to emergency room or call ambulance Rash 07/02/2023 Chronic atrial fibrillation (CMS/HCC) 10/19/2022 Hypercholesterolemia 03/06/2013 Insomnia 03/06/2013 Resolved Problems Problem Noted Date Diagnosed Date Resolved Date Cervical cancer screening 06/26/2025 Assessment & Plan (06/26/2025 10:36 AM EDT): 60 y.o. here for cervical cancer screening. Will continue monitoring following ASCCP guidelines. Acute bilateral low back pain 02/18/2024 08/06/2025 Assessment & Plan (02/18/2024 1:54 PM EDT): Likely muscle spasm, I advise to apply heat on affected area Gentle stretching Short course of flexeril, I milieu counselor about side effect somnolence Acetaminophen 1300mg Q8-12hrs Diclofenac gel once a day only if really needed for max 3 days Allergic conjunctivitis of both eyes 07/02/2023 10/31/2024 Benign hypertension 03/06/2013 08/06/20 25 Assessment & Plan (07/02/2023 10:44 AM EDT): Patient is not on medications but reports at home is normal , I advise to monitor her BP, low Na diet and f/u with her PCP Encounters Date Type Department Care Team Description 08/22/2025 Orders Only GENERIC EXTERNAL DATA DEPARTMENT Provider, Generic External Data 08/20/2025 Telephone [facility] [address] [place] [address] Lauren Amaral MD Med Refill 08/08/2025 Orders Only GENERIC EXTERNAL DATA DEPARTMENT Provider, Generic External Data 08/06/2025 1:15 PM EST Office Visit [facility] [address] [place], [place] [phone] Lauren Amaral MD Spastic hemiplegia, unspecified etiology, unspecified laterality (HCC) (Primary Dx); Dietary counseling; Exercise counseling; Class 1 obesity with body mass index (BMI) of 31.0 to 31.9 in adult, unspecified obesity type, unspecified whether serious comorbidity present; Cerebrovascular accident (CVA), unspecified mechanism (CMS/HCC) (HCC); Encounter for health-related screening; Requires assistance with all activities of daily living (ADL); Does mobilize using cane; Anemia, unspecified type; Migraine with aura and without status migrainosus, not intractable; Other constipation; Gastroesophageal reflux disease without esophagitis 08/06/2025 Travel 07/30/2025 Patient Outreach [facility] [address] [place], [place] [phone] Lauren Amaral MD Pre-visit Planning ([facility] screening was completed on 05/15/2025) 07/22/2025 Results Follow-Up [facility] [address] [place] [address] Hodan Hanna MD Culture, Urine, Routine 07/17/2025 Results Follow-Up [facility] [address] [place] [address] Abdomen Pelvis w/ Contrast 07/16/2025 Orders Only [facility] [address] [place] [address] Hodan Hanna MD Chronic pyelonephritis (Primary Dx); Other constipation 07/11/2025 Orders Only GENERIC EXTERNAL DATA DEPARTMENT Provider, Generic External Data 07/09/2025 11:30 AM EDT Clinical Support [facility] [address] [place] [address] Arianna Gutierrez RN Benign hypertension 07/09/2025 Travel 07/04/2025 Results Follow-Up [facility] [address] [place] [address] Ann Velez RN CBC auto differential, Basic Metabolic Panel, C-reactive Protein, Sed Rate by Modified Westergren 06/27/2025 Orders Only [facility] [address] [place] [address] Hodan Hanna MD Right flank pain (Primary Dx); Right lower quadrant pain 06/27/2025 Telephone [facility] [address] [place], [place] [phone] Hodan Hanna MD CT ABDOMEN/PELVIS ORDER 06/26/2025 Results Follow-Up [facility] [address] [place], [place] [phone] Lauren Amaral MD Pap Smear, HPV High Risk with Reflex to Subtypes 06/20/2025 2:00 PM EDT Office Visit [facility] [address] [place] [address] Hodan Hanna MD Right flank pain (Primary Dx); Right lower quadrant pain 06/20/2025 Travel 06/19/2025 10:20 AM EDT Procedure Visit [facility] [address] [place] [address] Lauren Amaral MD Cervical cancer screening (Primary Dx); Screening for lung cancer; Encounter for immunization 06/19/2025 Telephone [facility] [address] [place] [address] Heena Abbasi MD Appointment Request 06/19/2025 Travel 06/18/2025 Telephone [facility] [address] [facility] [place] [address] Heena Abbasi MD chart prep 06/13/2025 Orders Only GENERIC EXTERNAL DATA DEPARTMENT Provider, Generic External Data 05/24/2025 Telephone [facility] [address] [facility] [place] [address] Heena Abbasi MD 05/23/2025 10:15 AM EDT Office Visit [facility] [address] [place] [address] Heena Abbasi MD Benign hypertension (Primary Dx); Hypercholesterolemia; Chronic atrial fibrillation (CMS/HCC); Insomnia, unspecified type; Acute bilateral low back pain without sciatica; Encounter for annual wellness visit; Cerebrovascular accident (CVA), unspecified mechanism (CMS/HCC) 05/23/2025 Refill [facility] [address] [facility] [place] [address] Heena Abbasi MD 05/23/2025 Travel from Last 3 Months Immunizations Immunization Administration [...] Sign Reading Time Taken Comments Blood Pressure 130/78 08/06/2025 1:13 PM EST Pulse 78 08/06/2025 1:13 PM EST Temperature 36.2 C (97.2 F) 08/06/2025 1:13 PM EST Respiratory Rate 20 08/06/2025 1:13 PM EST Oxygen Saturation 97% 08/06/2025 1:13 PM EST Inhaled Oxygen Concentration - - Weight 67 kg (147 lb 9.6 oz) 08/06/2025 1:13 PM EST Height 144.8 cm (4' 9 ) 08/06/2025 1:13 PM EST Body Mass Index 31.94 08/06/2025 1:13 PM EST Plan of Treatment Upcoming Encounters Date Type Department Care Team (Late st Contact Info) Description 09/10/2025 9:00 AM EST Office Visit [facility] [address] [place] [address] Lauren Amaral MD [address] [place] [address] Health Maintenance Due Date Last Done Comments CT Colonography 1965 Colonoscopy 1965 FIT 1965 HIV Screening 1965 Sigmoidoscopy 1965 Hepatitis C Screening 02/11/1982 Zoster Vaccines (2 of 2) 07/30/2022 06/04/2022 FOBT 01/10/2025 01/11/2024 COVID-19 Vaccine ( - [...] 05/23/20 Disability Screening 05/23/2026 05/23/2025 Tobacco Screening 08/06/2026 08/06/2025 Dental X-Ray: Full Mouth 12/14/2026 12/14/2023, 03/12/2018 Colorectal Cancer Screening 01/10/2027 FIT DNA/Cologuard 01/10/2027 01/11/2024 DTaP/Tdap/Td Vaccines (2 - Td or Tdap) 11/20/2027 11/19/2017, 07/25/2001 Lipid Panel 05/23/2030 05/23/2025, 01/19, 02/09/2022, Additional history exists Cervical Cancer Screening 06/19/2030 HPV/Cotest 06/19/2030 06/19/2025 Pap Smear 06/19/2030 06/19/2025 RSV Patients and Patients Aged 60 years or older (1 - 1-dose 75+ series) 02/11/2039 Hepatitis B Vaccines Completed 11/03/2002, 07/25/2001, 05/20/2000 [...] Comments PROTHROMBIN TIME WHOLE BLD POC Routine 08/22/2025 10:22 AM EST ~PT, ~INR - ANTI COAG CLINIC Routine 08/22/2025 10:22 AM EST PROTHROMBIN TIME WHOLE BLD POC Routine 08/08/2025 10:18 AM EST ~PT, ~INR - ANTI COAG CLINIC Routine 08/08/2025 10:18 AM EST URINALYSIS, COMPLETE, WITH REFLEX TO CULTURE Routine [...] Routine 05/23/2025 10:52 AM EDT Benign hypertension BI MAMMOGRAM SCREENING TOMOSYNTHESIS BILATERAL Routine 05/03/2025 [...] * (ABNORMAL) PROTHROMBIN TIME WHOLE BLD POC (08/22/2025 10:22 AM EST) Only the most recent of4 resultswithin the time period is included. Protime 45.6(H) 11.1 - 13.5 sec [facility] 08/22/2025 10:2 2 AM EST 08/22/2025 10:23 AM EST us Generic External Data Provider LAB BLOOD ORDERAB LES Final Result [facility] [address] [place] [phone] * (ABNORMAL) ~PT, ~INR - ANTI COAG CLINIC (08/22/2025 10:22 AM EST) Only the most recent of4 resultswithin the time period is included. Prothrombin Time INR 3.8(H) 0.9 - 1.1 [facility] Comment:METER #: [id number] TERNATIONAL NORMALIZED RATIO (INR) REFERENCE RANGES Reference RangeFor patients not on anticoagulant therapy: 0.9 - 1.1INR ranges for oral anticoagulanttherapy:For prevention and treatment of venous thrombosis and pulmonary embolism: 2.0 - 3.0For acute myocardial infarction with aspirin therapy: 2.0 - 3.0For acute myocardial infarction without aspirin therapy: 3.0 - 4.0For patients with mechanical prosthetic heart valves: 2.5 - 3.5 08/22/2025 10:2 2 AM EST 08/22/2025 10:23 AM EST us Generic External Data Provider LAB BLOOD ORDERAB LES Final Result [facility] [address] [place] [phone] * (ABNORMAL) Urinalysis, Complete, with Reflex to Culture (07/18/2025 10:00 AM EDT) Only the most recent of2 resultswithin the time period is included. Color Urine Yellow [facility] Appearance Urine Clear [facility] PH 6.0 5.0 - 9.0 [facility] Glucose Urine UA Negative Negative mg/dL [facility] Urine Blood Trace(A) Negative [facility] Specific [place] - Urine 1.015 1.005 - 1.025 [facility] Urine Protein Negative Neg-Trace mg/dL [facility] Urine Ketones Negative Negative mg/dL [facility] Nitrite Urine Negative Negative [facility] Leukocyte Esterase Urine Negative Negative [facility] RBC Urine 0-2 0 - 2 /HPF [facility] Urine WBC 0-5 0 - 5 /HPF [facility] Urine Squamous Epithelial Cell 0-2 0 - 2 /HPF [facility] Urine Bacteria None Seen None Seen [facility] Hyaline Casts, Urine 0-2 0 - 2 /LPF [facility] Urine 07/18/2025 10:0 0 AM EDT 07/18/2025 1:57 PM EDT Narrative [facility] - 07/18/2025 2:14 PM EDT [id number], Clean Catch us Hodan Hanna MD LAB URINE ORDERABLES Final Result Performing Organization Address [facility]/ZIP Co de Phone Number [facility] [address] [place] [phone] * Culture, Urine, Routine (07/18/2025 10:00 AM EDT) Urine Urine specimen obtained by clean catch procedure / Unknown 07/18/2025 10:00 AM EDT 07/18/2025 1:57 PM EDT Comment:UACC Narrative [facility] - 07/19/2025 11:08 AM EDT Urine Culture Report Result Urine Culture < 10,000 cfu/ml Specimen Source: Urine clean catch us Hodan Hanna MD LAB MICROBIOLOGY - GENERAL ORDERABLES Final Result [facility] [address] [place] [phone] * (ABNORMAL) CBC auto differential (07/18/2025 9:55 AM EDT) Only the most recent of2 resultswithin the time period is included. White Blood Count 7.7 4.8 - 10.8 X10*3/uL [facility] Red Blood Count 4.42 4.20 - 5.50 X10*6/uL [facility] Hemoglobin 10.1(L) 12.0 - 16.0 g/dl [facility] Hematocrit 33.0(L) 37.0 - 47.0 % [facility] Mean Corpuscular Volume 74.7(L) 80.0 - 98.0 fL [facility] Mean Corpuscular Hemoglobin 22.9(L) 27.0 - 33.0 pg [facility] Mean Corpuscular HGB Conc 30.6(L) 31.0 - 35.0 g/dl [facility] Red Cell Distribution Width 20.5(H) 11.0 - 16.0 % [facility] Platelet Count 639(H) 160 - 400 X10*3/uL [facility] Mean Platelet Volume 9.1(L) 9.4 - 12.3 fL [facility] Neutrophils Percent Auto 58.2 45 - 73 % [facility] Imm Gran Pct Auto 0.4 0.0 - 0.4 % [facility] Lymphocytes Percent Auto 29.9 20 - 40 % [facility] Monocytes Percent Auto 8.5 2 - 11 % [facility] Eosinophils Percent Auto 2.2 0 - 4 % [facility] Basophils Percent Auto 0.8 0 - 2 % [facility] NRBC Pct Auto 0.0 0.0 - 0.2 /100WBC [facility] Neutrophils Absolute Auto 4.5 2.0 - 8.3 x10*3/uL [facility] Imm Gran Abs Auto 0.03 0.00 - 0.03 X10*3/uL [facility] Lymphocytes Absolute Auto 2.3 1.2 - 4.9 X10*3/uL [facility] Monocytes Absolute Auto 0.7 0.1 - 1.2 X10*3/uL [facility] Eosinophils Absolute Auto 0.2 0.0 - 0.4 X10*3/uL [facility] Basophils Absolute Auto 0.1 0.0 - 0.2 X10*3/uL [facility] NRBC Abs Auto 0.000 0.0 - 0.012 X10*3/uL [facility] Blood Venous blood specimen / Unknown 07/18/2025 9:55 AM EDT 07/18/2025 1:55 PM EDT Hodan Hanna MD LAB BLOOD ORDERABLES Final Result Performing Organization Address City/State/[facility] Co de Phone Number [facility] [address] [place] [phone] * CT Abdomen Pelvis w/ Contrast (07/16/2025 9:34 AM EDT) Anatomical Region Laterality Modality Body, Pelvis, Abdomen Computed T omography 07/16/2025 9:34 AM EDT Narrative 07/16/2025 10:05 AM EDT [place] [address] [address] Scan Report Signed Patient: Omaira Holly MR#: [id number] : 1965 Acct:[id number] Age/Sex: 60 / F ADM Date: 07/16/25 Loc: HO.CT Attending Dr: Hodan Hanna MD Ordering Physician: Hodan Hanna MD Date of Service: 07/16/25 Procedure(s): CT abdomen pelvis w IV con Accession Number(s): [id number] cc: Hodan Hanna MD; Heena Abbasi MD Report Number: [id number]: Total DLP = 367.00 mGy-cm Reason for [...] in OV> 07/16/25 1002 DD/ TD/TT: 07/16/2547 Schedule Clerk: Procedure Note Donotuseinterpreter, Image - 07/16/[address] [place] [address] [address] Scan Report Signed Patient: Jose Holly#: [id number] : 1965Acct:[id number] Age/Sex: 60 / FADM Date: 07/16/25 Loc: HO.CT Attending Dr: Hodan Hanna MD Ordering Physician: Hodan Hanna MD Date of Service: 07/16/25 Procedure(s): CT abdomen pelvis w IV con Accession Number(s): [id number] cc: Hodan Hanna MD; Heena Abbasi MD Report Number: [id number]: Total DLP = 367.00 mGy-cm Reason for [...] 07/16/25 1002 DD/ 0934 TD/TT: 07/16/25 0947 Schedule Clerk: us Hodan Hanna MD IMG CT PROCEDURES Edited Re sult - Final * (ABNORMAL) Sed Rate by Modified Alejo (06/20/2025 2:52 PM EDT) Erythrocyte Sedimentation Rate 43(H) 0 - 20 MM/HR [facility] Comment:Patients with polycy themia and many hemoglobin abnormalitiesmay have depressed sed rates whereas patients with anemiamay have elevated sed rates. Blood Venous blood specimen / Unknown 06/20/2025 2:52 PM EDT 06/20/2025 6:09 PM EDT us Hodan Hanna MD LAB BLOOD ORDERABLES Final Result Performing Organization Address [facility] Co de Phone Number [facility] [address] [place] [phone] * (ABNORMAL) C-reactive Protein (06/20/2025 2:52 PM EDT) [facility] C Reactive Protein 1.75(H) < or = 0.50 mg/dL [facility] Blood Venous blood specimen / Unknown 06/20/2025 2:52 PM EDT 06/20/2025 6:09 PM EDT us Hodan Hanna MD LAB BLOOD ORDERABLES Final Result Performing Organization Address [facility] Phone Number [facility] [address] [place] [phone] * (ABNORMAL) Basic Metabolic Panel (06/20/2025 2:52 PM EDT) Only the most recent of2 resultswithin the time period is included. [facility] Sodium 138 135 - 145 mmol/L [facility] Potassium 4.3 3.3 - 5.1 mmol/L [facility] Chloride 108 96 - 108 mmol/L [facility] Carbon Dioxide 23 22 - 29 mmol/L [facility] Anion Gap 11(L) 12 - 20 [facility] Urea Nitrogen (BUN) 19(H) 9 - 16 mg/dL [facility] Creatinine, Serum 0.85 0.5 - 1.4 mg/dL [facility] Estimated Glomerular Filt Rate >60 [facility] Comment:Chronic Kidney Disea se: Estimated GFR < 60 mL/min/[id number] Kidney Disease: Estimated GFR < 15 mL/min/1.73m2 Glucose 77 60 - 115 mg/dL [facility] Calcium 8.9 8.4 - 10.2 mg/dL [facility] Blood Venous blood specimen / Unknown 06/20/2025 2:52 PM EDT 06/20/2025 6:09 PM EDT us Hodan Hanna MD LAB BLOOD ORDERABLES Final Result Performing Organization Address [facility]/ZIP Co de Phone Number [facility] [address] [place] [address] [phone] * HPV High Risk with Reflex to Subtypes (06/19/2025 11:53 AM EDT) HPV High Risk Negative Negative [facility] HPV Genotype 16 Negative Negative [facility] HPV Genotype 18 Negative Negative [facility] Comment:HPV testing performe d at [facility] (CLIA#[id number]), [address] [place] [address].Testing for HPV was performed using the Donya [...] ORDERABLES Final Re sult Performing Organization Address [facility]/ZIP Co de Phone Number [facility] [address] [place] [phone] * Pap Smear (06/19/2025 12:00 AM EDT) Swab Cervical swab / Unknown 06/19/2025 06/20/2025 6:10 AM EDT [facility] - 06/22/2025 10:53 AM EDT ----- ------- Name: Omaira Holly Age/Sex: 60/F : 1965 Unit#: [id number] Attend Dr: Lauren Amaral MD Re06/19/25 Status: [facility] REF Location: HO.LNP Disch: ----- ------- SPEC : [id number] RECD: 06/20/25 STATUS: LORRAINE WATSON NUM: [id number] ALF: 06/19/25-[address]: Lauren Amaral MD ENTERED: 06/20/25 SP TYPE: Pap Smr OT : ORDERED: Pap Smear Interpretation Satisfactory for evaluation. Negative for intraepithelial lesion or malignancy. No endocervical cells seen. HPV High Risk: Negative HPV Genotyping 16: Negative HPV Genotyping 18: Negative Clinical Information LMP: Previous PAP test: Unk Other surgery: Other history: Material Received ThinPrep-Cervical ----- ------- Signed (signature on file) PAOLA Peñaloza ([facility]) 06/22/25 1053 ----- ------- END OF REPORT Lauren Amaral MD LAB CYTOLOGY ORDERABLES Final Result Performing Organization Address [facility] de Phone Number [facility] [address] [place] [phone] * (ABNORMAL) Hepatic Function Panel (05/23/2025 10:52 AM EDT) Bilirubin, Total 0.2 0.0 - 1.0 mg/dL [facility] Bilirubin, Direct <0.2 0.0 - 0.5 mg/dL [facility] Aspartate Amino Transferase 25 5 - 31 U/L [facility] Alanine Aminotransferase 14 0 - 31 U/L [facility] Total Protein 8.3(H) 6.5 - 8.0 g/dL [facility] Albumin Level 4.4 3.5 - 5.0 g/dL [facility] Alkaline Phosphatase 94 39 - 117 U/L [facility] Blood Venous blood specimen / Unknown 05/23/2025 10:52 AM EDT 05/23/2025 1:54 PM EDT Heena Abbasi MD LAB BLOOD ORDERABLES Final Resul t Performing Organization Address [facility]/ZIP Co de Phone Number [facility] [address] [place] [address] [phone] * (ABNORMAL) Lipid Panel, Standard (05/23/2025 10:52 AM EDT) Triglycerides 76 <150 mg/dL [facility] Comment:Desirable Triglyceri de: less than 150 mg/dLBorderline High Triglyceride 150-199 mg/dLHigh Triglyceride: 200-499 mg/dLVery High Triglyceride: greater than or equal to 5OO mg/dL Cholesterol 184 <200 mg/dL [facility] Comment:Desirable Cholestero l: less than 200 mg/dLBorderline High Cholesterol: 200-239 mg/dLHigh Cholesterol: greater than 239 mg/dL LDL Cholesterol Calculated 107(H) <100 mg/dL [facility] Comment:Desirable LDL: less than 100 mg/dLNear Optimal/Above Optimal LDL: 110- 129 mg/dLBorderline High LDL: 130-159 mg/dLHigh LDL: 160-189 mg/dLVery High LDL: greater than or equal to 190 mg/dL HDL Cholesterol 62 >40 mg/dL [facility] Comment:Desirable HDL: great er than 40 mg/dL Note: This HDL assay may give artificially low results in patients with liver disease. Blood Venous blood specimen / Unknown 05/23/2025 10:52 AM EDT 05/23/2025 1:54 PM EDT Heena Abbasi MD LAB BLOOD ORDERABLES Final Resul t Performing Organization Address [facility] Co de Phone Number [facility] [address] [place] [address] [phone] * BI Mammogram Screening Tomosynthesis Bilateral (05/03/2025 9:25 AM EDT) Anatomical Region Laterality Modality Breast Bilateral Mammography 05/03/2025 9:25 AM EDT Narrative 05/08/2025 11:51 AM EDT [facility] [address] [place] [address] Mammography Report Signed Patient: Omaira Holly MR#: [id number] : 1965 Acct:[id number] Age/Sex: 60 / F ADM Date: 05/03/25 Loc: HO.MAMMO Attending Dr: Heena Abbasi MD Ordering Physician: Heena Abbasi MD Results: 1Negati ve Date of Service: 05/03/25 Follow Up: 1 Year From Orig inal Mammogram Procedure(s): MM tomosynthesis screening BI Accession Number(s): [id number] cc: Heena Abbasi MD EXAMINATION: MM SCREENING [...] DO in OV> 05/08/25 1148 DD/ TD/TT: 05/03/25 0945 Schedule Clerk: Procedure Note Donotuseinterpreter, Image - 05/08/2025 [facility] [address] [place] [address] Dr. [place], [place] [address] Mammography Report Signed Patient: Omaira HollyMR#: [id number] : 1965Acct:[id number] Age/Sex: 60 / FADM Date: 05/03/25 Loc: HO.MAMMO Attending Dr: Heena Abbasi MD Ordering Physician: Heena Abbasi MDResults: 1Negati ve Date of Service: 05/03/25Follow Up: 1 Year From Orig ina Mammogram Procedure(s): MM tomosynthesis screening BI Accession Number(s): [id number] cc: Heena Abbasi MD EXAMINATION: MM SCREENING [...] DO Signed By: <Electronically signed by Nat Potetr DO in OV> 05/08/25 1148 DD/ 0925 TD/TT: 05/03/25 0945 Schedule Clerk: us Heena Abbasi MD IMG BI PROCEDURES Final Result * Cologuard?? colon cancer screening (01/11/2024 9:45 AM EDT) Cologuard Result Negative Negative 01/20/20 24 12:00 PM EDT [facility] (CLIA #:[id number]) Comment: NEGATIVE TEST RESULT. A negative Cologuard [...] Dobson et al, N Engl J Med 2014;370(14):5457-4766) The normal value (reference range) for this assay is negative. COLOGUARD RE-SCREENING RECOMMENDATION: Periodic colorectal cancer screening is an important part of preventive healthcare for asymptomatic individuals at average risk for colorectal cancer. Following a negative Cologuard result, the [place] Cancer Society and U.S. Multi-Society Task Force screening guidelines recommend a Cologuard re-screening interval of 3 years. References: [place] [employer] Guideline for Colorectal Cancer Screening: https://www.cancer.org/cancer/oglfi-jwmgwa-pdukrv/mrhfkgasl-zbjtmdpsz-rigmhyg/ac s-rec ommendations.html.; Dane DK, Feroz GALE, Lauro McdanielK, Colorectal Cancer Screening: Recommendations for Physicians and Patients from the U.S. Multi-Society Task Force on Colorectal Cancer Screening , Am J Gastroenterology 2017; 112:0757-8053. TEST DESCRIPTION: Composite algorithmic analysis of stool [...] (Mando Sidhu al, N Engl J Med 2014;370(14):1672-5126.) Cologuard may produce a false negative or false positive result (no colorectal cancer or precancerous polyp present at colonoscopy follow up). A negative Cologuard test result does not guarantee the absence of CRC or advanced adenoma (pre-cancer). The current Cologuard screening interval is every 3 years. ([place] [employer] Society and U.S. Multi-Society Task Force). Cologuard performance data in a 10,000 patient pivotal study using colonoscopy as the reference method can be accessed at the following location: www.DipJar/results. Additional description of the Cologuard test process, warnings and precautions can be found at www.Moov cc.ogManipal Acunovard.SocialDiabetes. Stool specimen (specimen) 01/11/2024 9:45 AM EDT 01/13/2024 10:47 AM EDT Heena Abbasi MD LAB MOLECULAR DIAGNOSTICS ORDERA BLE Final Result [facility] (CLIA #:[id number]) [place] [address], [place] [phone] from Last 3 Months or Most Recently Relevant to Health Maintenance Insurance [facility] C3 DENTAL-[facility] MEDICAID STAND ADULT DENTAL-[facility] MEDICAID STAND ADULT Care Teams Grinder Set Up Operator Internal Relationship Specialty Start Date End Date Lauren Amaral MD [address] [place] [address] PCP - General Family Medicine 07/19/25 Eli Higuera Pattern Data OperatorUnarmed Security Officer 02/22/25 [employer] Patient Prop Cutter 08/06/25
--- OUTSIDE RECORDS SUMMARY | 2025-08-22 11:46 | XMS_ITS | Encounter Summary ---
Author Organization [employer] Address [address] [facility] 7t [place] [address] Care Team Providers Care Construction Controller Name Role Phone Heena Abbasi MD Primary Care Provider [phone] Laruen Amaral MD Primary Care Provider [phone] Encounter Details Date Type Department Care Team (Late st Contact Info) Description 02/29/2024 Telephone C [facility] ADULT DENTAL [address] [place] [address] Perri Noble, SOREN Social History Tobacco Use [...] Description 09/10/2025 9:00 AM EST Office Visit [facility] MED & PEDS [address] [place] [address] Lauren Amaral MD [address] [place] [address] documented as of this encounter Visit Diagnoses Not on filedocumented in this encounter Additional Health Concerns Assessment Noted Time PHQ-9 Depression Total Score: 5 12/31/19 24 10:57 AM EDT documented as of this encounter Care Teams Construction Controller Relationship Specialty Start Date End Date Heena Abbasi MD [address] [place] [address] PCP - General Family Medicine 09/05/12 07/18/25 Lauren Amaral MD [address] [place] [address] PCP - General Family Medicine 07/19/25 Eli Higuera Records And Tape Recordings EngineerField Crew Chief 03/17/24 08/05/25 Eli Higuera Records And Tape Recordings EngineerField Crew Chief 10/05/24 08/05/25 Eli Higuera Records And Tape Recordings EngineerField Crew Chief 02/22/25 [employer] Patient Print Production Associate 08/06/25 documented as of this encounter
--- OUTSIDE RECORDS SUMMARY | 2025-08-22 11:46 | XMS_ITS | Encounter Summary ---
Author Organization [employer] [facility] Address [address] [facility] 7t [place] [address] Care Team Providers Care Skiing Instructor Name Role Phone Heena Abbasi MD Primary Care Provider [phone] Lauren Amaral MD Primary Care Provider [phone] Encounter Details Date Type Department Care Team (Latest Contact Info) Description 07/29/2022 Abstract [facility] CONVERSIONS Dental, Provider, DDS Social [...] Description 09/10/2025 9:00 AM EST Office Visit [facility] CHC MED & PEDS [address] [place] [address] Lauren Amaral MD [address] [place] [address] documented as of this encounter Visit Diagnoses Not on filedocumented in this encounter Care Teams Skiing Instructor Relationship Specialty Start Date End Date Heena Abbasi MD [address] [place] [address] PCP - General Family Medicine 09/05/12 07/18/25 Lauren Amaral MD [address] [place] [address] PCP - General Family Medicine 07/19/25 Eli Higuera Fiber AnalystTraffic I Manager 03/17/24 08/05/25 Eli Higuera Fiber AnalystTraffic I Manager 10/05/24 08/05/25 Eli Higuera Fiber AnalystTraffic I Manager 02/22/25 [employer] Patient Auto Technician Mechanic 08/06/25 documented as of this encounter
--- OUTSIDE RECORDS SUMMARY | 2025-08-22 11:46 | XMS_ITS | Encounter Summary ---
Author Organization [employer] [facility] Address [address] [facility] 7t [place] [address] Care Team Providers Care Hedis Specialist Name Role Phone Heena Abbasi MD Primary Care Provider [phone] Lauren Amaral MD Primary Care Provider [phone] Encounter Details Date Type Department Care Team (Latest Contact Info) Description 11/21/2018 Abstract [facility] CONVERSIONS Dental, [...] Description 09/10/2025 9:00 AM EST Office Visit [facility] CHC MED & PEDS [address] [place] [address] Lauren Amaral MD [address] [place] [address] documented as of this encounter Visit Diagnoses Not on filedocumented in this encounter Care Teams Hedis Specialist Relationship Specialty Start Date End Date Heena Abbasi MD [address] [place] [address] PCP - General Family Medicine 09/05/12 07/18/25 Lauren Amaral MD [address] [place] [address] PCP - General Family Medicine 07/19/25 Eli Higuera System Integration EngineerSilversmith Apprentice 03/17/24 08/05/25 Eli Higuera System Integration EngineerSilversmith Apprentice 10/05/24 08/05/25 Eli Higuera System Integration EngineerSilversmith Apprentice 02/22/25 [employer] Patient Manager Laundry 08/06/25 documented as of this encounter
--- OUTSIDE RECORDS SUMMARY | 2025-08-22 11:46 | XMS_ITS | Encounter Summary ---
Author Organization [employer] Address [address] [facility] 7t [place] [address] Care Team Providers Care Ginseng Farmer Name Role Phone Heena Abbasi MD Primary Care Provider [phone] Lauren Amaral MD Primary Care Provider [phone] Encounter Details Date Type Department Care Team ([facility] Contact Info) Description 09/10/2022 Orders Only [facility] [address] [place], [place] [phone] Tierra Ashby LPN Social History Tobacco Use [...] Department Care Team (Late Contact Info) Description 09/10/2025 9:00 AM EST Office Visit [facility] CHC MED & PEDS [address] [place], [place] [phone] Lauren Amaral MD [address] [place] [address] documented as of this encounter Visit Diagnoses Not on filedocumented in this encounter Care Teams Ginseng Farmer Relationship Specialty Start Date End Date Heena Abbasi MD [address] [place] [address] PCP - General Family Medicine 09/05/12 07/18/25 Lauren Amaral MD [address] [place] [address] PCP - General Family Medicine 07/19/25 Eli Higuera Histologic AideGraduate Student Instructor 03/17/24 08/05/25 Eli Higuera Histologic AideGraduate Student Instructor 10/05/24 08/05/25 Eli Higuera Histologic AideGraduate Student Instructor 02/22/25 [employer] Patient Civilian Technician 08/06/25 documented as of this encounter
--- OUTSIDE RECORDS SUMMARY | 2025-08-22 11:46 | XMS_ITS | Encounter Summary ---
Author Organization [employer] Address [address] [facility] 7t [place] [address] Care Team Providers Care Special Needs Bus Driver Name Role Phone Heena Abbasi MD Primary Care Provider [phone] Lauren Amaral MD Primary Care Provider [phone] Reason for Visit * Reason Onset Date Comments Dr. Golden medical clearance ?? 11/23/2024 Encounter Details Date Type Department Care Team (Late st Contact Info) Description 11/23/2024 Telephone C [facility] [address] [place] [address] Reynoso medical clearance [...] Upcoming Encounters Date Type Department Care Team ([facility] st Contact Info) Description 09/10/2025 9:00 AM EST Office Visit [facility] MED & PEDS [address] [place] [address] Lauren Amaral MD [address] [place] [address] documented as of this encounter Visit Diagnoses Not on filedocumented in this encounter Additional Health Concerns Assessment Noted Time PHQ-9 Depression Total Score: 5 12/31/19 24 10:57 AM EDT documented as of this encounter Care Teams Special Needs Bus Driver Relationship Specialty Start Date End Date Heena Abbasi MD [address] [place] [address] PCP - General Family Medicine 09/05/12 07/18/25 Lauren Amaral MD [address] [place] [address] PCP - General Family Medicine 07/19/25 Eli Higuera Ceramic Tile Installation HelperAnodic Operator 03/17/24 08/05/25 Eli Higuera Ceramic Tile Installation HelperAnodic Operator 10/05/24 08/05/25 Eli Higuera Ceramic Tile Installation HelperAnodic Operator 02/22/25 [employer] Patient Spectacle Truer 08/06/25 documented as of this encounter
--- OUTSIDE RECORDS SUMMARY | 2025-08-22 11:47 | XMS_ITS | Encounter Summary ---
Author Organization [employer] Address [address] [facility] 7t [place] [address] Care Team Providers Care Assistant Therapy Aide Name Role Phone Heena Abbasi MD Primary Care Provider [phone] Lauren Amaral MD Primary Care Provider [phone] Reason for Visit * Reason Onset Date Comments Med Refill 06/09/2023 Encounter Details Date Type Department Care Team ([facility] st Contact Info) Description 06/09/2023 Telephone [facility] CHC MED & PEDS [address] [place], [place] [phone] Heena Abbasi MD [address] [place] [address] Med Refill Social History Tobacco Use Types [...] message pt has refills at pharmacy . [address] Stenographer contacted pharmacy to confirm . [facility] had a system error that was corrected and patient will be picking up script later today . * Telephone Encounter - Mari Miller LPN - 06/09/2023 11:54 AM EDT 90 day supply was sent to [id number] on 12/29/22 with 3 refills. * Telephone Encounter - Brianne Wade - 06/09/2023 11:27 AM EDT Tc from pt requesting medication refill on gemfibrozil (Lopid) 600 MG tablet to be sent to [facility]/pharmacy #[id number] - [place], [place] - [address] documented in this encounter Plan of Treatment Upcoming Encounters Date Type Department Care Team (Late st Contact Info) Description 09/10/2025 9:00 AM EST Office Visit [facility] MED & PEDS [address] [place] [address] Lauren Amaarl MD [address] [place] [address] documented as of this encounter Visit Diagnoses Not on filedocumented in this encounter Care Teams Assistant Therapy Aide Relationship Specialty Start Date End Date Heena Abbasi MD [address] [place] [address] PCP - General Family Medicine 09/05/12 07/18/25 Lauren Amaral MD [address] [place] [address] PCP - General Family Medicine 07/19/25 Eli Higuera Commission Sales AssociateMattress And Foundation Sewer 03/17/24 08/05/25 Eli Higuera Commission Sales AssociateMattress And Foundation Sewer 10/05/24 08/05/25 Eli Higuera Commission Sales AssociateMattress And Foundation Sewer 02/22/25 [employer] Patient Application Development Project Manager 08/06/25 documented as of this encounter
--- OUTSIDE RECORDS SUMMARY | 2025-08-22 11:47 | XMS_ITS | Encounter Summary ---
Author Organization [employer] Address [address] [facility] 7t [place] [address] Care Team Providers Care Jewelry Store Manager Name Role Phone Heena Abbasi MD Primary Care Provider Lauren Amaral MD Primary Care Provider Reason for Visit * Reason Onset Date Comments Med Refill 03/30/2023 Encounter Details Date Type Department Care Team ([facility] st Contact Info) Description 03/30/[address] [facility] CHC MED & PEDS [address] [place], [place] [phone] Heena Abbais MD [address] [place] [address] Med Refill Social History Tobacco Use Types [...] - 03/31/2023 8:41 AM EDT Managed by [facility] coumadin clinic. Noted INR result of 3.0 [...] [facility] st Contact Info) Description 09/10/2025 9:00 AM EST Office Visit [facility] MED & PEDS [address] [place] [address] Lauren Amaral MD [address] [place] [address] documented as of this encounter Visit Diagnoses Not on filedocumented in this encounter Care Teams Jewelry Store Manager Relationship Specialty Start Date End Date Heena Abbasi MD [address] [place] [address] PCP - General Family Medicine 09/05/12 07/18/25 Lauren Amaral MD [address] [place] [address] PCP - General Family Medicine 07/19/25 Eli Higuera Radio MaintainerBore Miner Operator 03/17/24 08/05/25 Eli Higuera Radio MaintainerBore Miner Operator 10/05/24 08/05/25 Eli Higuera Radio MaintainerBore Miner Operator 02/22/25 [employer] Patient Television Servicer 08/06/25 documented as of this encounter
--- OUTSIDE RECORDS SUMMARY | 2025-08-22 11:47 | XMS_ITS | Encounter Summary ---
Author Organization [employer] Address [address] [facility] 7t [place] [address] Care Team Providers Care Systems Admin Name Role Phone Lauren Amaral MD Primary Care Provider [phone] Encounter Details Date Type Department Care Team (Late st Contact Info) Description 08/22/2025 Orders Only GENERIC EXTERNAL DATA [...] the past 12 months, has t he [employer], gas, oil or water [employer] threatened to shut off services in your [...] Description 09/10/2025 9:00 AM EST Office Visit [facility] CHC MED & PEDS [address] [place] [address] Lauren Amaral MD [address] [place] [address] documented as of this encounter Procedures Procedure Name Priority Date/Time Associated Diagnosis Comments PROTHROMBIN TIME WHOLE BLD POC Routine 08/22/2025 10:22 AM EST ~PT, ~INR - ANTI COAG CLINIC Routine 08/22/2025 10:22 AM EST documented in this encounter Results * (ABNORMAL) PROTHROMBIN TIME WHOLE BLD POC (08/22/2025 10:22 AM EST) Protime 45.6(H) 11.1 - 13.5 sec [facility] 08/22/2025 10:2 2 AM EST 08/22/2025 10:23 AM EST us Generic External Data Provider LAB BLOOD ORDERAB LES Final Result [facility] [address] [place] [address] [phone] * (ABNORMAL) ~PT, ~INR - ANTI COAG CLINIC (08/22/2025 10:22 AM EST) Prothrombin Time INR 3.8(H) 0.9 - 1.1 [facility] Comment:METER #: [id number] TERNATIONAL NORMALIZED RATIO (INR) REFERENCE RANGES Reference [...] ORDERAB LES Final Result Performing Organization Address City/State/[facility] Co de Phone Number [facility] [address] [place] [address] [phone] documented in this encounter Visit Diagnoses Not on filedocumented in this encounter Additional Health Concerns Assessment Noted Time PHQ-9 Depression Total Score: 7 05/23/20 25 10:19 AM EDT documented as of this encounter Care Teams Systems Admin Relationship Specialty Start Date End Date Lauren Amaral MD [address] [place] [address] PCP - General Family Medicine 07/19/25 Eli Higuera Molder HelperBus Transportation Manager 02/22/25 [employer] Patient Compilation Clerk 08/06/25 documented as of this encounter
--- OUTSIDE RECORDS SUMMARY | 2025-08-22 11:47 | XMS_ITS | Encounter Summary ---
Author Organization [email or web address] Address [address] [facility] 7 [place] [address] Care Team Providers Care Technician Telecommunication Systems Name Role Phone Heena Abbasi MD Primary Care Provider [phone] Lauren Amaral MD Primary Care Provider [phone] Reason for Referral * Imaging (Urgent) - Closed Specialty Diagnoses / Procedures Referred By Contac t Referred To Contact Radiology Diagnoses Right flank pain Right lower quadrant pain Procedures CT Abdomen Pelvis w/ Contrast Hodan Hanna MD [address] [place] [address] Phone: tel: fax: [address] [address] Phone: tel: fax: Referral ID Status Reason Start Date Expiration Date Visits Re quested Visits Authorized [id number] Closed 06/27/2025 06/27/2026 1 1 Encounter Details Date Type Department Care Team (Late st Contact Info) Description 06/27/2025 Orders Only [facility] CHC MED & PEDS [address] [place], [place] [phone] Hodan Hanna MD 505 [place], [place] [phone] Right flank pain (Primary Dx); Right lower [...] Upcoming Encounters Date Type Department Care Team ([facility] st Contact Info) Description 09/10/2025 9:00 AM EST Office Visit [facility] CHC MED & PEDS [address] [place] [address] Lauren Amaral MD 505 [place] [address] documented as of this encounter Procedures Procedure [...] AM EDT Narrative 07/16/2025 10:05 AM EDT [place] [address] [address] Scan Report Signed Patient: Omaira Holly MR#: [id number] : 1965 Acct:[id number] Age/Sex: 60 / F ADM Date: 07/16/25 Loc: HO.CT Attending Dr: Hodan Hanna MD Ordering Physician: Hodan Hanna MD Date of Service: 07/16/25 Procedure(s): CT abdomen pelvis w IV con Accession Number(s): [id number] cc: Hodan Hanna MD; Henea Abbasi MD Report Number: [id number]: Total DLP = 367.00 mGy-cm Reason for [...] 07/16/25 1002 DD/ 0934 TD/TT: 07/16/25 0947 Exam Proctor: Procedure Note Donotuseinterpreter, Image - 07/16/[address] [place] [address] [address] Scan Report Signed Patient: Jose Holly#: [id number] : 1965Acct:[id number] Age/Sex: 60 / FADM Date: 07/16/25 Loc: HO.CT Attending Dr: Hodan Hanna MD Ordering Physician: Hodan Hanna MD Date of Service: 07/16/25 Procedure(s): CT abdomen pelvis w IV con Accession Number(s): [id number] cc: Hodan Hanna MD; Heena Abbasi MD Report Number: [id number]: Total DLP = 367.00 mGy-cm Reason for [...] in OV> 07/16/25 1002 DD/ 0934 TD/TT: 07/16/2547 Exam Proctor: us Hodan Hanna MD IMG CT PROCEDURES Edited Re sult - Final documented in this encounter Visit Diagnoses Diagnosis Right flank pain- Primary Abdominal pain, unspecified site Right lower quadrant pain documented in this encounter Additional Health Concerns Assessment Noted Time PHQ-9 Depression Total Score: 7 05/23/20 10:19 AM EDT documented as of this encounter Care Teams Technician Telecommunication Systems Relationship Specialty Start Date End Date Heena Abbasi MD [address] [place] [address] PCP - General Family Medicine 09/05/12 07/18/25 Lauren Amaral MD 505 [place] [address] PCP - General Family Medicine 07/19/25 Eli Higuera Housekeeping CoordinatorAs400 Programmer Analyst 03/17/24 08/05/25 Eli Higuera Housekeeping CoordinatorAs400 Programmer Analyst 10/05/24 08/05/25 Eli Higuera Housekeeping CoordinatorAs400 Programmer Analyst 02/22/25 Y[employer] Patient Manager Financial 08/06/25 documented as of this encounter
--- OUTSIDE RECORDS SUMMARY | 2025-08-22 11:47 | XMS_ITS | Encounter Summary ---
Author Organization [employer] Address [address] [facility] 7t [place] [address] Care Team Providers Care Textile Chemist Name Role Phone Heena Abbasi MD Primary Care Provider [phone] Lauren Amaral MD Primary Care Provider [phone] Reason for Visit * Reason Onset Date Comments Med Refill 12/30/2022 Encounter Details Date Type Department Care Team ([facility] st Contact Info) Description 12/30/2022 Telephone [facility] MEDICINE [address] [place] [address] Heena Abbasi MD 505 [place] [address] Med Refill Social History Tobacco Use Types [...] 12/30/2022 12:39 PM EDT Pt managed by [facility]. Noted INR of 3.0 on [...] 09/10/2025 9:00 AM EST Office Visit [facility] MED & PEDS 505 [place] [address] Lauren Amaral MD 505 [place] [address] documented as of this encounter Visit Diagnoses Not on filedocumented in this encounter Care Teams Textile Chemist Relationship Specialty Start Date End Date Heena Abbasi MD [address] [place] [address] PCP - General Family Medicine 09/05/12 07/18/25 Lauren Amaral MD 505 [place] [address] PCP - General Family Medicine 07/19/25 Eli Higuera Rn CampSolar Project Coordination Specialist 03/17/24 08/05/25 Eli Higuera Rn CampSolar Project Coordination Specialist 10/05/24 08/05/25 Eli Higuera Rn CampSolar Project Coordination Specialist 02/22/25 [employer] Patient Instructor Of Sociology 08/06/25 documented as of this encounter
--- OUTSIDE RECORDS SUMMARY | 2025-08-22 11:47 | XMS_ITS | Encounter Summary ---
Author Organization [employer] Address [address] [facility] 7t [place] [address] Care Team Providers Care Offshoring Manager Name Role Phone Heena Abbasi MD Primary Care Provider [phone] Lauren Amaral MD Primary Care Provider [phone] Encounter Details Date Type Department Care Team ([facility] Contact Info) Description 12/09/2022 Orders Only [facility] CHC MED & PEDS [address] [place], [place] [phone] Heena Abbasi MD [address] [place], [place] [phone] Social History Tobacco Use Types Packs/Day Years [...] Description 09/10/2025 9:00 AM EST Office Visit [facility] CH[facility] MED & PEDS [address] [place], [place] [phone] Lauren Amaral MD [address] [place], [place] [address]013 documented as of this encounter Visit Diagnoses Not on filedocumented in this encounter Care Teams Offshoring Manager Relationship Specialty Start Date End Date Heena Abbasi MD [address] [place] [address] PCP - General Family Medicine 09/05/12 07/18/25 Lauren Amaral MD [address] [place] [address] PCP - General Family Medicine 07/19/25 Eli Higuera Hourly Shift ManagerSnailer 03/17/24 08/05/25 Eli Higuera Hourly Shift ManagerSnailer 10/05/24 08/05/25 Eli Higuera Hourly Shift ManagerSnailer 02/22/25 [employer] Patient Computer Hardware Designer 08/06/25 documented as of this encounter
--- OUTSIDE RECORDS SUMMARY | 2025-08-22 11:47 | XMS_ITS | Encounter Summary ---
Author Organization [employer] Address 75 [facility] 7t [place] [address] Care Team Providers Care Hat Band Attacher Name Role Phone Heena Abbasi MD Primary Care Provider [phone] Lauren Amaral MD Primary Care Provider [phone] Reason for Visit * Reason Onset Date Comments Referral 07/29/2023 Encounter Details Date Type Department Care Team ([facility] st Contact Info) Description 07/29/2023 Telephone [facility] MEDICINE [address] [place] [address] Heena Abbasi MD [address] [place], [place] [phone] Referral Social History Tobacco Use Types Packs/Day [...] Description 09/10/2025 9:00 AM EST Office Visit [facility] CHC MED & PEDS 505 [place] [address] Lauren Amaral MD 505 [place] [address] documented as of this encounter Visit Diagnoses Not on filedocumented in this encounter Care Teams Hat Band Attacher Relationship Specialty Start Date End Date Heena Ababsi MD [address] [place] [address] PCP - General Family Medicine 09/05/12 07/18/25 Lauren Amaral MD 505 [place] [address] PCP - General Family Medicine 07/19/25 Eli Higuera Utility MechanicLearning Support Specialist 03/17/24 08/05/25 Eli Higuera Utility MechanicLearning Support Specialist 10/05/24 08/05/25 Eli Higuera Utility MechanicLearning Support Specialist 02/22/25 Yarelyp Patient Professor Of Architecture 08/06/25 documented as of this encounter
--- OUTSIDE RECORDS SUMMARY | 2025-08-22 11:47 | XMS_ITS | Encounter Summary ---
Author Organization [employer] Address 75 [facility] 7t [place] [address] Care Team Providers Care Correspondence Renew Clerk Name Role Phone Heena Abbasi MD Primary Care Provider [phone] Lauren Amaral MD Primary Care Provider [phone] Encounter Details Date Type Department Care Team ([facility] Contact Info) Description 04/05/2023 Orders Only [facility] CH[facility] MED & PEDS [address] [place], [place] [phone] Heena Abbasi MD 505 [place], [place] [phone] Social History Tobacco Use Types Packs/Day Years [...] 9:00 AM EST Office Visit [facility] CH[facility] MED & PEDS [address] [place], [place] [phone] Lauren Amaral MD 505 [place], [place] [phone] documented as of this encounter Visit Diagnoses Not on filedocumented in this encounter Care Teams Correspondence Renew Clerk Relationship Specialty Start Date End Date Heena Abbasi MD [address] [place] [address] PCP - General Family Medicine 09/05/12 07/18/25 Lauren Amaral MD [address] [place] [address] PCP - General Family Medicine 07/19/25 Eli Higuera Barrel Washer MachineBee Robber 03/17/24 08/05/25 Eli Higuera Barrel Washer MachineBee Robber 10/05/24 08/05/25 Eli Higuera Barrel Washer MachineBee Robber 02/22/25 [employer] Patient Plain Clothes Police Officer 08/06/25 documented as of this encounter
--- OUTSIDE RECORDS SUMMARY | 2025-08-22 11:47 | XMS_ITS | Encounter Summary ---
Author Organization [employer] Address [address] [facility] 7t [place] [address] Care Team Providers Care Chronic Condition Nurse Name Role Phone Heena Abbasi MD Primary Care Provider [phone] Lauren Amaral MD Primary Care Provider [phone] Encounter Details Date Type Department Care Team (Late Contact Info) Description 03/05/2023 Telephone [facility] CHC ADULT DENTAL [address] [place], [place] [phone] Anthony Arnold [address] [place], [place] [phone] Social History Tobacco Use Types Packs/Day Years [...] AM EDT Patient called in with her IRRIGATOR VALVE PIPE from her coumadin clinic to [facility]. [facility] high and patient will not be able to be seen. Informed patient to call next week to check schedule for new appt date that will coincide with a new coumadin INR apptdate as well. Patient understood DR documented in this encounter Plan of Treatment Upcoming Encounters Date Type Department Care Team ([facility] Contact Info) Description 09/10/2025 9:00 AM EST Office Visit [facility] CHC MED & PEDS [address] [place] [address] Lauren Amaral MD 505 [place] [address] documented as of this encounter Visit Diagnoses Not on filedocumented in this encounter Care Teams Chronic Condition Nurse Relationship Specialty Start Date End Date Heena Abbasi MD [address] [place] [address] PCP - General Family Medicine 09/05/12 07/18/25 Lauren Amaral MD 505 [place] [address] PCP - General Family Medicine 07/19/25 Eli Higuera Senior Energy AnalystPaving Supervisor 03/17/24 08/05/25 Eli Higuera Senior Energy AnalystPaving Supervisor 10/05/24 08/05/25 Eli Higuera Senior Energy AnalystPaving Supervisor 02/22/25 [employer] Patient Mortgage Loan Assistant 08/06/25 documented as of this encounter
--- OUTSIDE RECORDS SUMMARY | 2025-08-22 11:47 | XMS_ITS | Encounter Summary ---
Author Organization [employer] Address [address] [facility] 7t [place] [address] Care Team Providers Care Hand Model Name Role Phone Heena Abbasi MD Primary Care Provider [phone] Lauren Amaral MD Primary Care Provider [phone] Reason for Visit * Reason Onset Date Comments Referral 05/17/2023 Encounter Details Date Type Department Care Team ([facility] st Contact Info) Description 05/17/2023 Telephone [facility] CHC MED & PEDS [address] [place], [place] [phone] Heena Abbasi MD [address] [place] [address] Referral Social History Tobacco Use Types Packs/Day [...] [facility]) requesting referral for pt. Location: [address] [place] J Santac[place] Date: n/a Time: n/a Specialty: vest busheler documented in this encounter Plan of Treatment Upcoming Encounters Date Type Department Care Team ([facility] st Contact Info) Description 09/10/2025 9:00 AM EST Office Visit [facility] CHC MED & PEDS [address] [place] [address] Lauren Amaral MD [address] [place] [address] documented as of this encounter Visit Diagnoses Not on filedocumented in this encounter Care Teams Hand Model Relationship Specialty Start Date End Date Heena Abbasi MD [address] [place] [address] PCP - General Family Medicine 09/05/12 07/18/25 Lauren Amaral MD [address] [place] [address] PCP - General Family Medicine 07/19/25 Eli Higuera Senior Front End Web DeveloperRehabilitator 03/17/24 08/05/25 Eli Higuera Senior Front End Web DeveloperRehabilitator 10/05/24 08/05/25 Eli Higuera Senior Front End Web DeveloperRehabilitator 02/22/25 [employer] Patient Building Equipment Operator 08/06/25 documented as of this encounter
--- OUTSIDE RECORDS SUMMARY | 2025-08-22 11:47 | XMS_ITS | Encounter Summary ---
Author Organization [employer] [facility] Address [address] [facility] 7t [place] [address] Care Team Providers Care Program Strategist Name Role Phone Heena Abbasi MD Primary Care Provider [phone] Lauren Amaral MD Primary Care Provider [phone] Encounter Details Date Type Department Care Team (Late Contact Info) Description 01/01/2023 Orders Only [facility] MED & PEDS [address] [place], [place] [phone] Heena Abbasi MD 505 [place], [place] [phone] Muscle spasm Social History Tobacco Use Types [...] Description 09/10/2025 9:00 AM EST Office Visit [facility] MED & PEDS [address] [place], [place] [phone] Lauren Amaral MD 505 [place], [place] [phone] documented as of this encounter Visit Diagnoses Diagnosis Muscle spasm Spasm of muscle documented in this encounter Care Teams Program Strategist Relationship Specialty Start Date End Date Heena Abbasi MD [address] [place] [address] PCP - General Family Medicine 09/05/12 07/18/25 Lauren Amaral MD [address] [place] [address] PCP - General Family Medicine 07/19/25 Eli Higuera Sand Slinger OperatorBroadcast News Producer 03/17/24 08/05/25 Eli Higuera Sand Slinger OperatorBroadcast News Producer 10/05/24 08/05/25 Eli Higuera Sand Slinger OperatorBroadcast News Producer 02/22/25 Dign[employer] Patient Bath Steward 08/06/25 documented as of this encounter
--- OUTSIDE RECORDS SUMMARY | 2025-08-22 11:47 | XMS_ITS | Encounter Summary ---
Author Organization [employer] Address [address] [facility] 7t [place] [address] Care Team Providers Care Airplane Flight Attendant Name Role Phone Heena Abbasi MD Primary Care Provider [phone] Lauren Amaral MD Primary Care Provider [phone] Reason for Visit * Reason Onset Date Comments Med Refill 01/31/2025 Encounter Details Date Type Department Care Team ([facility] Contact Info) Description 01/31/2025 Telephone [facility] MEDICINE [address] [place] [address] Heena Abbasi MD 505 [place], [place] [phone] Med Refill Social History Tobacco Use Types [...] 10:42 AM EDT Medication was sent to [facility][id number] on 11/14/24 #90 with 1 refill. * Telephone Encounter - Jeannie Jaimes - 01/31/2025 10:28 AM EDT TC from pt requesting medication refill. Medications needing refill : pantoprazole (ProtoNix) 20 MG EC tablet To be sent to: [facility]/pharmacy #[id number] - [place], [place] - [address] documented in this encounter Plan of Treatment Upcoming Encounters Date Type Department Care Team (Late st Contact Info) Description 09/10/2025 9:00 AM EST Office Visit [facility] CHC MED & PEDS 505 [place] [address] Lauren Amaral MD [address] [place] [address] documented as of this encounter Visit Diagnoses Not on filedocumented in this encounter Additional Health Concerns Assessment Noted Time PHQ-9 Depression Total Score: 5 12/31/19 24 10:57 AM EDT documented as of this encounter Care Teams Airplane Flight Attendant Relationship Specialty Start Date End Date Heena Abbasi MD 230 [place] [address] PCP - General Family Medicine 09/05/12 07/18/25 Lauren Amaral MD [address] [place] [address] PCP - General Family Medicine 07/19/25 Eli Higuera Simulation Software EngineerCoal Handling Supervisor 03/17/24 08/05/25 Eli Higuera Simulation Software EngineerCoal Handling Supervisor 10/05/24 08/05/25 Eli Higuera Simulation Software EngineerCoal Handling Supervisor 02/22/25 [employer] Patient Sap Bi Developer 08/06/25 documented as of this encounter
--- OUTSIDE RECORDS SUMMARY | 2025-08-22 11:47 | XMS_ITS | Encounter Summary ---
Author Organization [employer] Address 75 [facility] 7t [place] [address] Care Team Providers Care Event Marketing Specialist Name Role Phone Heena Abbasi MD Primary Care Provider [phone] Lauren Amaral MD Primary Care Provider [phone] Reason for Visit * Reason Onset Date Comments pre tx medication 02/16/2023 Encounter Details Date Type Department Care Team ([facility] Contact Info) Description 02/16/2023 Telephone [facility] ADULT DENTAL 505 [place] [address] Socorro Auguste DDS pre tx medication Social [...] Care Team ([facility] Contact Info) Description 09/10/2025 9:00 AM EST Office Visit [facility] CHC MED & PEDS [address] [place] [address] Lauren Amaral MD [address] [place] [address] documented as of this encounter Visit Diagnoses Not on filedocumented in this encounter Care Teams Event Marketing Specialist Relationship Specialty Start Date End Date Heena Abbasi MD [address] [place] [address] PCP - General Family Medicine 09/05/12 07/18/25 Lauren Amaral MD [address] [place] [address] PCP - General Family Medicine 07/19/25 Eli Higuera Irrigation ManagerBarrel Waterer 03/17/24 08/05/25 Eli Higuera Irrigation ManagerBarrel Waterer 10/05/24 08/05/25 Eli Higuera Irrigation ManagerBarrel Waterer 02/22/25 [employer] Patient Plastic Surgeon 08/06/25 documented as of this encounter
--- OUTSIDE RECORDS SUMMARY | 2025-08-22 11:47 | XMS_ITS | Encounter Summary ---
Author Organization [employer] Address [address] [place] [address] 7t [place] [address] Care Team Providers Care Supervisor Gluing Name Role Phone Heena Abbasi MD Primary Care Provider [phone] Lauren Amaral MD Primary Care Provider [phone] Reason for Referral * Consultation (Routine) - Authorized Specialty Diagnoses / Procedures Referred By Naomi clark Referred To Contact Nephrology Diagnoses Chronic pyelonephritis Hodan Hanna MD [address] [place] [address] Phone: tel: fax: [facility] [address] [place] [address] Drive, [address] [place] [address] Phone: tel: fax: Referral ID Status Reason Start Date Expiration Date Visits Requested Visits Authorized [id number] Authorized Specialty Services Required 07/22/2025 07/22/2026 1 1 Encounter Details Date Type Department Care Team ([facility] st Contact Info) Description 07/16/2025 Orders Only [facility] CHC MED & PEDS [address] [place], [place] [phone] Hodan Hanna MD [address] [place], [place] [phone] Chronic pyelonephritis (Primary Dx); Other constipation Social [facility] Description 09/10/2025 9:00 AM EST Office Visit [facility] CHC MED & PEDS [address] [place] [address] Lauren Amaral MD 505 [place] [address] Scheduled Referrals Name Type Priority Associated Diagnoses [...] 10:00 AM EDT 07/18/2025 1:57 PM EDT Comment:[facility] - 07/19/2025 11:08 AM EDT Urine Culture Report Result Urine Culture < 10,000 cfu/ml Specimen Source: Urine clean catch Hodan Hanna MD LAB MICROBIOLOGY - GENERAL ORDERABLES Final Result [facility] [address] [place] [phone] documented in this encounter Visit Diagnoses Diagnosis Chronic pyelonephritis- Primary 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 Other constipation documented in this encounter Additional Health Concerns Assessment Noted Time PHQ-9 Depression Total Score: 7 05/23/20 25 10:19 AM EDT documented as of this encounter Care Teams Supervisor Gluing Relationship Specialty Start Date End Date Heena Abbasi MD [address] [place] [address] PCP - General Family Medicine 09/05/12 07/18/25 Lauren Amaral MD [address] [place] [address] PCP - General Family Medicine 07/19/25 Eli Higuera Domestic CleanerUmbrella Tipper Hand 03/17/24 08/05/25 Eli Higuera Domestic CleanerUmbrella Tipper Hand 10/05/24 08/05/25 Eli Higuera Domestic CleanerUmbrella Tipper Hand 02/22/25 Digna Patient Engineer Gas Pumping Station 08/06/25 documented as of this encounter
--- OUTSIDE RECORDS SUMMARY | 2025-08-22 11:47 | XMS_ITS | Encounter Summary ---
Author Organization [employer] Address 75 [facility] 7t [place] [address] Care Team Providers Care Area Loss Prevention Manager Name Role Phone Heena Abbasi MD Primary Care Provider [phone] Lauren Amaral MD Primary Care Provider Encounter Details Date Type Department Care Team ([facility] st Contact Info) Description 06/26/2025 Results Follow-Up [facility] CHC MED & PEDS [address] [place], [place] [phone] Lauren Amaral MD [address] [place], [place] [phone] Pap Smear, HPV High Risk with Reflex [...] Description 09/10/2025 9:00 AM EST Office Visit [facility] MED & PEDS [address] [place] [address] Lauren Amaral MD [address] [place] [address] documented as of this encounter Visit Diagnoses Not on filedocumented in this encounter Additional Health Concerns Assessment Noted Time PHQ-9 Depression Total Score: 7 05/23/20 10:19 AM EDT documented as of this encounter Care Teams Area Loss Prevention Manager Relationship Specialty Start Date End Date Heena Abbasi MD [address] [place] [address] PCP - General Family Medicine 09/05/12 07/18/25 Lauren Amaral MD [address] [place] [address] PCP - General Family Medicine 07/19/25 Eli Higuera Carnival WorkerCashier Associate 03/17/24 08/05/25 Eli Higuera Carnival WorkerCashier Associate 10/05/24 08/05/25 Eli Higuera Carnival WorkerCashier Associate 02/22/25 Digna Patient Customer Records Division Supervisor 08/06/25 documented as of this encounter
--- OUTSIDE RECORDS SUMMARY | 2025-08-22 11:47 | XMS_ITS | Encounter Summary ---
Author Organization [employer] Address [address] [place] [address] Care Team Providers Care Probation Agent Name Role Phone Heena Abbasi MD Primary Care Provider [phone] Lauren Amaral MD Primary Care Provider [phone] Encounter Details Date Type Department Care Team ([facility] st Contact Info) Description 12/31/2023 Orders Only [facility] [address] [place], [place] [phone] Heena Abbasi MD [address] [place], [place] [phone] Social History Tobacco Use Types Packs/Day Years [...] 12/31/2023 10:57 AM Vee Olmstead [place] * How difficult have these problems made it for you to do your work, take care of things at home, or get along with other people? Answer Date of Assessment Author Somewhat difficult 12/31/2023 10:57 AM Vee Olmstead [...] Description 09/10/2025 9:00 AM EST Office Visit [facility] [address] [place] [address] Lauren Amaral MD [address] [place] [address] documented as of this encounter Visit Diagnoses Not on filedocumented in this encounter Additional Health Concerns Assessment Noted Time PHQ-9 Depression Total Score: 5 12/31/19 24 10:57 AM EDT documented as of this encounter Care Teams Probation Agent Relationship Specialty Start Date End Date Heena Abbasi MD [address] [place] [address] PCP - General Family Medicine 09/05/12 07/18/25 Lauren Amaral MD [address] [place] [address] PCP - General Family Medicine 07/19/25 Eli Higuera HeddlerFeed Management Advisor 03/17/24 08/05/25 Eli Higuera HeddlerFeed Management Advisor 10/05/24 08/05/25 Eli Higuera HeddlerFeed Management Advisor 02/22/25 [employer] Patient Aircraft Motor Mechanic 08/06/25 documented as of this encounter
--- OUTSIDE RECORDS SUMMARY | 2025-08-22 11:47 | XMS_ITS | Encounter Summary ---
Author Organization [employer] Address [address] [place] [address] Care Team Providers Care Correctional Cook Name Role Phone Lauren Amaral MD Primary Care Provider Reason for Visit * Reason Onset Date Comments Med Refill 08/20/2025 Encounter Details Date Type Department Care Team ([facility] st Contact Info) Description 08/20/2025 Telephone [facility] MEDICINE [address] [place] [address] Lauren Amaral MD [address] [place], [place] [phone] Med Refill Social History Tobacco Use Types [...] encounter Miscellaneous Notes * Telephone Encounter - Lauren Amaral MD - 08/22/2025 10:25 AM EST Med sent. Closing loop. Thanks! * Telephone Encounter - Jose Billings - 08/20/2025 1:06 PM EST TC from pt requesting medication refill. Medications needing refill: warfarin (Coumadin) 4 MG tablet To be sent to: [facility]/pharmacy #[facility] [place], [place] - [address] documented in this encounter Plan of Treatment Upcoming Encounters Date Type Department Care Team (Late st Contact Info) Description 09/10/2025 9:00 AM EST Office Visit [facility] [address] [place] [address] Lauren Amaral MD [address] [place] [address] documented as of this encounter Visit Diagnoses Diagnosis Chronic atrial fibrillation (CMS/HCC) (HCC) Atrial fibrillation documented in this encounter Additional Health Concerns Assessment Noted Time PHQ-9 Depression Total Score: 7 09/03/20 25 10:19 AM EDT documented as of this encounter Care Teams Correctional Cook Relationship Specialty Start Date End Date Lauren Amaral MD [address] [place] [address] PCP - General Family Medicine 07/19/25 Eli Higuera Animal RescuerMeasurement Psychologist 02/22/25 [employer] Patient Story Writer 08/06/25 documented as of this encounter
== END 2025-08-22 10:42 | disposition home or self-care (01) ==
LOC: HO.ACS 10:18
PROVIDERS: PCP Family Medicine; Visit Provider Internal Medicine Medical Oncology
DX: Z79.01 Long term (current) use of anticoagulants (principal)

== ENCOUNTER → 2025-08-22 10:18 | Outpatient (BNVA) | payer MEDICAID, SELFPAY | PROVIDERS: PCP Family Medicine; Visit Provider Internal Medicine Medical Oncology | DX: I26.99 Other pulmonary embolism without acute cor pulmonale (principal); Z51.81 Encounter for therapeutic drug level monitoring; Z79.01 Long term (current) use of anticoagulants | CPT/HCPCS: 85610; 99211 ==

== ENCOUNTER 2025-09-05 09:58 | Outpatient (AMB) | payer MEDICAID, SELFPAY ==
--- NOTE | 2025-09-05 10:13 | MHC.OFFVISCO ---
Intake Intake Visit Reasons: Anticoagulation Allergies No Known Allergies Allergy (Mild, Verified 09/05/25 10:02) N/A Medication List - Last Reconciled 09/05/25 by Itzel Dick RN acetaminophen ER (Tylenol 8 Hour) 650 mg PO Q8H PRN arkkypk-dfevjafyldozx-akiozlyq 250-250-65 mg (Pain Reliever Plus) 1 tab PO DAILY baclofen 10 mg PO DAILY bisacodyl (Laxative (bisacodyl)) 5 mg PO DAILY PRN cetirizine 10 mg PO DAILY docusate sodium 100 mg PO DAILY ferrous gluconate 324 mg PO DAILY gemfibrozil 600 mg PO BID warfarin 4 mg See Protocol PO DAILY Nursing Note NO CP,WOB,DIETY/MED CHANGES,FALLS OR SX OF BLEEDING. CONTINUE 4MGM DAILY AND FOLLOW-UP IN 3 WEEKS GOOD UNDERSTANDING OF DOSING INSTR. Anti-Coag Initial Assessment Social Hx Patient Tobacco Use Status: Never used Tobacco alcohol intake: current Coding Level of Care Code Est Patient Level 1 Diagnoses Current use of anticoagulant therapy Z79.01 Results AMB INR Fingerstick AMB INR Fingerstick 2.0 Last Edit by Itzel Dick RN on 09/05/25 10:10 Assessment & Plan Assessment & Plan (1) Current use of anticoagulant therapy: Code(s): Z79.01 - ad terminal makeup operator (current) use of anticoagulants Category: Medical
--- NOTE | 2025-09-05 10:13 | MHC.OFFVISCO ---
Intake Intake Visit Reasons: Anticoagulation Allergies No Known Allergies Allergy (Mild, Verified 09/05/25 10:02) N/A Medication List - Last Reconciled 09/05/25 by Itzel Dick RN acetaminophen ER (Tylenol 8 Hour) 650 mg PO Q8H PRN qkskvhy-mjeboxcoinxjc-guzdsncz 250-250-65 mg (Pain Reliever Plus) 1 tab PO DAILY baclofen 10 mg PO DAILY bisacodyl (Laxative (bisacodyl)) 5 mg PO DAILY PRN cetirizine 10 mg PO DAILY docusate sodium 100 mg PO DAILY ferrous gluconate 324 mg PO DAILY gemfibrozil 600 mg PO BID warfarin 4 mg See Protocol PO DAILY Nursing Note NO CP,WOB,DIETY/MED CHANGES,FALLS OR SX OF BLEEDING. CONTINUE 4MGM DAILY AND FOLLOW-UP IN 3 WEEKS GOOD UNDERSTANDING OF DOSING INSTR. Anti-Coag Initial Assessment Social Hx Patient Tobacco Use Status: Never used Tobacco alcohol intake: current Coding Level of Care Code Est Patient Level 1 Diagnoses Current use of anticoagulant therapy Z79.01 Results AMB INR Fingerstick AMB INR Fingerstick 2.0 Last Edit by Itzel Dick RN on 09/05/25 10:10 Assessment & Plan Assessment & Plan (1) Current use of anticoagulant therapy: Code(s): Z79.01 - exterminator helper (current) use of anticoagulants Category: Medical
[2025-09-05 10:25] LABS: Prothrombin Time Whole Bld POC 24.4 sec (11.1-13.5); ~PT, ~INR - Anti Coag Clinic 2.0 (0.9-1.1)
--- OUTSIDE RECORDS SUMMARY | 2025-09-05 12:02 | XMS_ITS | Clinical Summary ---
Author Organization [employer] Address [address] [facility] [address] [place] [address] Care Team Providers Care Health Safety Specialist Name Role Phone Lauren Amaral MD Primary Care Provider [phone] Allergies No known active allergies Medications aspirin-acetami [...] [facility] 30 tablet 1 Active warfarin (Coumadin) 4 MG tabletIndicatio ns:Chronic atrial fibrillation (CMS/HCC) (HCC) Take 1 tablet by mouth daily OR DIRECTED BY THE [facility] 30 tablet 1 025 2024 Discontinued(R eorder (will not trigger notification to Pharmacy)) bisacodyl (Dulcolax) 5 MG EC tabletIndicatio ns:Other constipation Take 1 tablet (5 mg) by mouth if needed each day for constipation. Do not crush, chew, or split. 30 tablet 025 2024 zoster vaccine-recombi nant adjuvanted (Shingrix) 50 MCG/0.5ML vaccine Inject 0.5 mL (50 mcg) into the muscle 1 (one) time for 1 dose. 0.5 mL 025 2024 Active Problems Problem Noted Date Diagnosed Date Spastic hemiplegia, unspecif ied etiology, unspecified laterality 08/06/2025 Stroke ([facility]) 08/06/2025 Migraine with aura and [...] call ambulance Rash 07/02/2023 Chronic atrial fibrillation ([facility]) 10/19/2022 Hypercholesterolemia 03/06/2013 Insomnia 03/06/2013 Resolved Problems [...] Gentle stretching Short course of flexeril, I general counselor about side effect somnolence Acetaminophen 1300mg [...] Encounters Date Type Department Care Team Description 09/05/2025 Orders Only GENERIC EXTERNAL DATA DEPARTMENT Provider, Generic External Data 08/22/2025 Orders Only GENERIC EXTERNAL DATA DEPARTMENT Provider, Generic External Data 08/20/2025 Telephone [facility] [address] [place] [address] Lauren Amaral MD Med Refill 08/08/2025 Orders Only GENERIC EXTERNAL DATA DEPARTMENT Provider, Generic External Data 08/06/2025 1:15 PM EST Office Visit [facility] [address] [place] [address] Lauren Amaral MD Spastic hemiplegia, unspecified etiology, [...] without esophagitis 08/06/2025 Travel 07/30/2025 Patient Outreach [facility] [address] [place] [address] Lauren Amaral MD Pre-visit Planning (SDAL screening was completed on 05/15/2025) 07/22/2025 Results Follow-Up [facility] [address] [place] [address] Hodan Hanna MD Culture, Urine, Routine 07/17/2025 Results Follow-Up [facility] [address] [place] [address] Abdomen Pelvis w/ Contrast 07/16/2025 Orders Only [facility] [address] [place] [address] Hodan Hanna MD Chronic pyelonephritis (Primary Dx); Other constipation 07/11/2025 Orders Only GENERIC EXTERNAL DATA DEPARTMENT Provider, Generic External Data 07/09/2025 11:30 AM EDT Clinical Support [facility] [address] [place] [address] Arianna Gutierrez RN Benign hypertension 07/09/2025 Travel 07/04/2025 Results Follow-Up [facility] [address] [place] [address] Ann Velez RN CBC auto differential, Basic Metabolic Panel, C-reactive Protein, Sed Rate by Modified Westergren 06/27/2025 Orders Only [facility] [address] [place] [address] Hodan Hanna MD Right flank pain (Primary Dx); Right lower quadrant pain 06/27/2025 Telephone [facility] [employer] [address] [place] [phone] ABDOMEN/PELVIS ORDER 06/26/2025 Results Follow-Up [facility] [address] [place] [address] Lauren Amaral MD Pap Smear, HPV High Risk with Reflex to Subtypes 06/20/2025 2:00 PM EDT Office Visit [facility] [address] [place] [address] Hodan Hanna MD Right flank pain (Primary Dx); Right lower quadrant pain 06/20/2025 Travel 06/19/2025 10:20 AM EDT Procedure Visit [facility] [address] [place] [address] Lauren Amaral MD Cervical cancer screening (Primary Dx); Screening for lung cancer; Encounter for immunization 06/19/2025 Telephone [facility] [address] [place] [address] Heena Abbasi MD Appointment Request 06/19/2025 Travel 06/18/2025 Telephone [facility] [address] [place] [address] Heena Abbasi MD chart prep 06/13/2025 Orders [...] Upcoming Encounters Date Type Department Care Team ([facility] st Contact Info) Description 09/10/2025 9:00 AM EST Office Visit [facility] [address] [place] [address] Lauren Amaral MD [address] [place] [address] Health Maintenance Due Date Last Done Comments CT Colonography 1965 Colonoscopy 1965 FIT 1965 HIV Screening 1965 Sigmoidoscopy 1965 Hepatitis C Screening 02/11/1982 Zoster Vaccines (2 of 2) 07/30/2022 06/04/2022 FOBT 01/10/2025 01/11/2024 COVID-19 Vaccine ( season) [...] 08/06/2025 Dental X-Ray: Full Mouth 12/14/2026 12/14/2023, 0312/2018 [...] Comments PROTHROMBIN TIME WHOLE BLD POC Routine 09/05/2025 10:06 AM EST ~PT, ~INR - ANTI COAG CLINIC Routine 09/05/2025 10:06 AM EST PROTHROMBIN TIME WHOLE BLD POC Routine 08/22/2025 [...] COAG CLINIC Routine 06/13/2025 10:20 AM EDT LIPID PANEL, STANDARD Routine 05/23/2025 10:52 AM [...] * (ABNORMAL) PROTHROMBIN TIME WHOLE BLD POC (09/05/2025 10:06 AM EST) Only the most recent of5 resultswithin the time period is included. Protime 24.4(H) 11.1 - 13.5 sec [facility] 09/05/2025 10:0 6 AM EST 09/05/2025 10:24 AM EST us Generic External Data Provider LAB BLOOD ORDERAB LES Final Result Performing Organization Address City/State/[facility] Co de Phone Number [facility] [address] [place] [phone] * (ABNORMAL) ~PT, ~INR - ANTI COAG CLINIC (09/05/2025 10:06 AM EST) Only the most recent of5 resultswithin the time period is included. Prothrombin Time INR 2.0(H) 0.9 - 1.1 [facility] Comment:METER #: [id number] TERNATIONAL NORMALIZED RATIO (INR) REFERENCE RANGES Reference RangeFor patients not on anticoagulant therapy: 0.9 - 1.1INR ranges for oral anticoagulanttherapy:For prevention and treatment of venous thrombosis and pulmonary embolism: 2.0 - 3.0For acute myocardial infarction with aspirin therapy: 2.0 - 3.0For acute myocardial infarction without aspirin therapy: 3.0 - 4.0For patients with mechanical prosthetic heart valves: 2.5 - 3.5 09/05/2025 10:0 6 AM EST 09/05/2025 10:24 AM EST us Generic External Data Provider LAB BLOOD ORDERAB LES Final Result Performing Organization Address [facility] Co de Phone Number [facility] [address] [place] [phone] * (ABNORMAL) Urinalysis, Complete, with Reflex to Culture (07/18/2025 10:00 AM EDT) Color Urine Yellow [facility] Appearance Urine Clear [facility] PH 6.0 5.0 - 9.0 [facility] Glucose Urine UA Negative Negative mg/dL [facility] Urine Blood Trace(A) Negative [facility] Specific [place] - Urine 1.015 1.005 - 1.025 [facility] Urine Protein Negative Neg-Trace mg/dL [facility] Urine Ketones Negative Negative mg/dL [facility] Nitrite Urine Negative Negative [facility] Leukocyte Esterase Urine Negative Negative [facility] RBC Urine 0-2 0 - 2 /HPF [facility] Urine WBC 0-5 0 - 5 /HPF [facility] Urine Squamous Epithelial Cell 0-2 0 - 2 /HPF [facility] Urine Bacteria None Seen None Seen [facility] Hyaline Casts, Urine 0-2 0 - 2 /LPF [facility] Urine 07/18/2025 10:0 0 AM EDT 07/18/2025 1:57 PM EDT Narrative [facility] - 07/18/2025 2:14 PM EDT [id number], Clean Catch us Hodan Hanna MD LAB URINE ORDERABLES Final Result Performing Organization Address [facility] Co de Phone Number [facility] [address] [place] [phone] [phone] * Culture, Urine, Routine (07/18/2025 10:00 AM EDT) Urine Urine specimen obtained by clean catch procedure / Unknown 07/18/2025 10:00 AM EDT 07/18/2025 1:57 PM EDT Comment:[facility] Narrative [facility] - 07/19/2025 11:08 AM EDT Urine Culture Report Result Urine Culture < 10,000 cfu/ml Specimen Source: Urine clean catch us Hodan Hanna MD LAB MICROBIOLOGY - GENERAL ORDERABLES Final Result [facility] [address] [place] [phone] [phone] * (ABNORMAL) CBC auto differential (07/18/2025 9:55 AM EDT) Only the most recent of2 resultswithin the time period is included. White Blood Count 7.7 4.8 - 10.8 X10*3/uL [facility] Red Blood Count 4.42 4.20 - 5.50 X10*6/uL [facility] Hemoglobin 10.1(L) 12.0 - 16.0 g/dl [facility] Hematocrit 33.0(L) 37.0 - 47.0 % [facility] Mean Corpuscular Volume 74.7(L) 80.0 - 98.0 fL [facility] Mean Corpuscular Hemoglobin 22.9(L) 27.0 - 33.0 pg [facility] Mean Corpuscular HGB Conc 30.6(L) 31.0 - 35.0 g/dl [facility] Red Cell Distribution Width 20.5(H) 11.0 - 16.0 % [facility] Platelet Count 639(H) 160 - 400 X10*3/uL [facility] Mean Platelet Volume 9.1(L) 9.4 - 12.3 fL [facility] Neutrophils Percent Auto 58.2 45 - 73 % [facility] Imm Gran Pct Auto 0.4 0.0 - 0.4 % [facility] Lymphocytes Percent Auto 29.9 20 - 40 % [facility] Monocytes Percent Auto 8.5 2 - 11 % [facility] Eosinophils Percent Auto 2.2 0 - 4 % [facility] Basophils Percent Auto 0.8 0 - 2 % [facility] NRBC Pct Auto 0.0 0.0 - 0.2 /100WBC [facility] Neutrophils Absolute Auto 4.5 2.0 - 8.3 x10*3/uL [facility] Imm Gran Abs Auto 0.03 0.00 - 0.03 X10*3/uL [facility] Lymphocytes Absolute Auto 2.3 1.2 - 4.9 X10*3/uL [facility] Monocytes Absolute Auto 0.7 0.1 - 1.2 X10*3/uL [facility] Eosinophils Absolute Auto 0.2 0.0 - 0.4 X10*3/uL [facility] Basophils Absolute Auto 0.1 0.0 - 0.2 X10*3/uL [facility] NRBC Abs Auto 0.000 0.0 - 0.012 X10*3/uL [facility] Blood Venous blood specimen / Unknown 07/18/2025 9:55 AM EDT 07/18/2025 1:55 PM EDT us Hodan Hanna MD LAB BLOOD ORDERABLES Final Result Performing Organization Address City/State/[facility] Co de Phone Number [facility] [address] [place] [phone] * CT Abdomen Pelvis w/ Contrast (07/16/2025 9:34 AM EDT) Anatomical Region Laterality Modality Body, Pelvis, Abdomen Computed T omography 07/16/2025 9:34 AM EDT Narrative 07/16/2025 10:05 AM EDT [address] [address] [address] Scan Report Signed Patient: Omaira Holly MR#: [id number] : 1965 Acct:[id number] Age/Sex: 60 / F ADM Date: 07/16/25 Loc: HO.CT Attending Dr: Hodan Hanna MD Ordering Physician: Hodan Hanna MD Date of Service: 07/16/25 Procedure(s): CT abdomen pelvis w IV con Accession Number(s): [id number] cc: Hodan Hanna MD; Heena Abbasi MD Report Number: [id number]: Total DLP = 367.00 mGy-cm Reason for [...] MD in OV> 07/16/25 1002 DD/ TD/TT: 07/16/25946 Educational Recruiter: Procedure Note Donotuseinterpreter, Image - 07/16/[address] [place] [address] [address] Scan Report Signed Patient: Jose Holly#: [id number] : 1965Acct:[id number] Age/Sex: 60 / FADM Date: 07/16/25 Loc: HO.CT Attending Dr: Hodan Hanna MD Ordering Physician: Hodan Hanna MD Date of Service: 07/16/25 Procedure(s): CT abdomen pelvis w IV con Accession Number(s): [id number] cc: Hodan Hanna MD; Heena Abbasi MD Report Number: [id number]: Total DLP = 367.00 mGy-cm Reason for [...] 07/16/25 1002 DD/ 0934 TD/TT: 07/16/25 0947 Educational Recruiter: us Hodan Hanna MD IMG CT PROCEDURES Edited Re sult - Final * (ABNORMAL) Sed Rate by Modified Alejo (06/20/2025 2:52 PM EDT) Erythrocyte Sedimentation Rate 43(H) 0 - 20 MM/HR [facility] Comment:Patients with polycy themia and many hemoglobin abnormalitiesmay have depressed sed rates whereas patients with anemiamay have elevated sed rates. Blood Venous blood specimen / Unknown 06/20/2025 2:52 PM EDT 06/20/2025 6:09 PM EDT us Hodan Hanna MD LAB BLOOD ORDERABLES Final Result Performing Organization Address [facility]/ZIP Co de Phone Number [facility] [address] [place] [phone] * (ABNORMAL) C-reactive Protein (06/20/2025 2:52 PM EDT) Pathologist [facility] C Reactive Protein 1.75(H) < or = 0.50 mg/dL [facility] Blood Venous blood specimen / Unknown 06/20/2025 2:52 PM EDT 06/20/2025 6:09 PM EDT us Hodan Hanna MD LAB BLOOD ORDERABLES Final Result Performing Organization Address [facility] Co de Phone Number [facility] [address] [place] [phone] * (ABNORMAL) Basic Metabolic Panel (06/20/2025 2:52 PM EDT) Pathologist [facility] Sodium 138 135 - 145 mmol/L [facility] Potassium 4.3 3.3 - 5.1 mmol/L [facility] Chloride 108 96 - 108 mmol/L [facility] Carbon Dioxide 23 22 - 29 mmol/L [facility] Anion Gap 11(L) 12 - 20 [facility] Urea Nitrogen (BUN) 19(H) 9 - 16 mg/dL [facility] Creatinine, Serum 0.85 0.5 - 1.4 mg/dL [facility] Estimated Glomerular Filt Rate >60 [facility] Comment:Chronic Kidney Disea se: Estimated GFR < 60 mL/min/1.08l5Adlmjf Kidney Disease: Estimated GFR < 15 mL/min/1.73m2 Glucose 77 60 - 115 mg/dL [facility] Calcium 8.9 8.4 - 10.2 mg/dL [facility] Blood Venous blood specimen / Unknown 06/20/2025 2:52 PM EDT 06/20/2025 6:09 PM EDT us Hodan Hanna MD LAB BLOOD ORDERABLES Final Result Performing Organization Address City/[facility]/ZIP Co de Phone Number [facility] [address] [place] [phone] * HPV High Risk with Reflex to Subtypes (06/19/2025 11:53 AM EDT) HPV High Risk Negative Negative [facility] HPV Genotype 16 Negative Negative [facility] HPV Genotype 18 Negative Negative [facility] Comment:HPV testing performe d at [facility] (CLIA#[id number]), [address] [place] [address].Testing for HPV was performed using the Donya [...] MD LAB BLOOD ORDERABLES Final Re sult [facility] [address] [place] [phone] * Pap Smear (06/19/2025 12:00 AM EDT) Swab Cervical swab / Unknown 06/19/2025 06/20/2025 6:10 AM EDT Narrative [facility] - 06/22/2025 10:53 AM EDT ----- ------- Name: Omaira Holly Age/Sex: 60/F : 1965 Unit#: [id number] Attend Dr: Lauren Amaral MD Re06/19/25 Status: DEP REF Location: HO.LNP Disch: ----- ------- SPEC : [id number] RECD: 06/20/25 STATUS: PERCYRobert SHIRLEY NUM: [id number] ALF: 06/19/25-[address]: Lauren Amaral MD ENTERED: 06/20/25 SP TYPE: Pap [facility] JAMILA : ORDERED: Pap Smear Interpretation Satisfactory for [...] Amaral MD LAB CYTOLOGY ORDERABLES Final Result [facility] [address] [place] [phone] * (ABNORMAL) Lipid Panel, Standard (05/23/2025 10:52 AM EDT) Triglycerides 76 <150 mg/dL [facility] Comment:Desirable Triglyceri de: less than 150 mg/dLBorderline High Triglyceride 150-199 mg/dLHigh Triglyceride: 200-499 mg/dLVery High Triglyceride: greater than or equal to 5OO mg/dL Cholesterol 184 <200 mg/dL [facility] Comment:Desirable Cholestero l: less than 200 mg/dLBorderline High Cholesterol: 200-239 mg/dLHigh Cholesterol: greater than 239 mg/dL LDL Cholesterol Calculated 107(H) <100 mg/dL [facility] Comment:Desirable LDL: less than 100 mg/dLNear Optimal/Above Optimal LDL: 110- 129 mg/dLBorderline High LDL: 130-159 mg/dLHigh LDL: 160-189 mg/dLVery High LDL: greater than or equal to 190 mg/dL HDL Cholesterol 62 >40 mg/dL [facility] Comment:Desirable HDL: great er than 40 mg/dL Note: This HDL assay may give artificially low results in patients with liver disease. Blood Venous blood specimen / Unknown 05/23/2025 10:52 AM EDT 05/23/2025 1:54 PM EDT us Heena Abbasi MD LAB BLOOD ORDERABLES Final Resul t [facility] [address] [place] [phone] * BI Mammogram Screening Tomosynthesis Bilateral (05/03/2025 9:25 AM EDT) Anatomical Region Laterality Modality Breast Bilateral Mammography 05/03/2025 9:25 AM EDT Narrative 05/08/2025 11:51 AM EDT [address] [place] [address] Mammography Report Signed Patient: Omaira Holly MR#: [id number] : 1965 Acct:[id number] Age/Sex: 60 / F ADM Date: 05/03/25 Loc: HO.MAMMO Attending Dr: Heena Abbasi MD Ordering Physician: Heena Abbasi MD Results: 1Negati ve Date of Service: 05/03/25 Follow Up: 1 Year From Orig ina Mammogram Procedure(s): MM tomosynthesis screening BI Accession Number(s): [id number] cc: Heena Abbasi MD EXAMINATION: MM SCREENING [...] in OV> 05/08/25 1148 DD/ TD/TT: 05/03/2545 Educational Recruiter: Procedure Note Donotuseinterpreter, Image - 05/08/2025 [facility] [address] [place] [address] Mammography Report Signed Patient: Omaira HollyMR#: [id number] : 1965Acct:[id number] Age/Sex: 60 / FADM Date: 05/03/25 Loc: HO.MAMMO Attending Dr: Heena Abbasi MD Ordering Physician: Heena Abbasi MDResults: 1Negati ve Date of Service: 05/03/25Follow Up: 1 Year From Orig ina Mammogram Procedure(s): MM tomosynthesis screening BI Accession Number(s): [id number] cc: Heena Abbasi MD EXAMINATION: MM SCREENING [...] OV> 05/08/25 1148 DD/ TD/TT: 05/03/25 0945 Educational Recruiter: Heena Abbasi MD IMG BI PROCEDURES Final Result * Cologuard?? colon cancer screening (01/11/2024 9:45 AM EDT) Cologuard Result Negative Negative 01/20/20 12:00 PM EDT [facility] (CLIA #:[id number]) Comment: NEGATIVE TEST RESULT. A negative Cologuard [...] T. et al, N Engl J Med 2014;370(14):0173-1651) The normal value (reference range) for this assay is negative. COLOGUARD RE-SCREENING RECOMMENDATION: Periodic colorectal cancer screening is an important part of preventive healthcare for asymptomatic individuals at average risk for colorectal cancer. Following a negative Cologuard result, the [place] [employer] and U.S. Multi-Society Task Force screening guidelines recommend a Cologuard re-screening interval of 3 years. References: [place] [employer] Guideline for Colorectal Cancer Screening: https://www.cancer.org/cancer/jisor-haczrj-vhsxjl/upwkjtyeb-cjeycomca-hqwlmas/ac s-rec ommendations.html.; Dane COSTELLO, Feroz GALE, Lauro MOONEY, Colorectal Cancer Screening: Recommendations for Physicians and Patients from the U.S. Multi-Society Task Force on Colorectal Cancer Screening , Am J Gastroenterology 2017; 112:5629-1214. TEST DESCRIPTION: Composite algorithmic analysis of stool [...] Dobson et al, N Engl J Med 2014;370(14):4780-6511.) Cologuard may produce a false negative or false positive result (no colorectal cancer or precancerous polyp present at colonoscopy follow up). A negative Cologuard test result does not guarantee the absence of CRC or advanced adenoma (pre-cancer). The current Cologuard screening interval is every 3 years. ([place] [employer] and U.S. Multi-Society Task Force). Cologuard performance data in a 10,000 patient pivotal study using colonoscopy as the reference method can be accessed at the following location: www.[employer]/results. Additional description of the Cologuard test process, warnings and precautions can be found at www.[employer].com. Stool specimen (specimen) 01/11/2024 9:45 AM EDT 01/13/2024 10:47 AM EDT us Heena Abbasi MD LAB MOLECULAR DIAGNOSTICS MARY OMALLEY Final Result [facility] (CLIA #:[id number]) [place] [address], [place] [phone] from Last 3 Months or Most Recently Relevant to Health Maintenance Insurance [id number] DENTAL-[facility] MEDICAID STAND ADULT DENTAL-[facility] MEDICAID STAND ADULT Care Teams Health Safety Specialist Relationship Specialty Start Date End Date Lauren Amaral MD [address] [place] [phone] PCP - General Family Medicine 07/19/25 Eli Higuera Travel Freight And Passenger AgentPie Crust Mixer 02/22/25 [facility] Patient Ivf Embryologist 08/06/25
--- OUTSIDE RECORDS SUMMARY | 2025-09-05 12:02 | XMS_ITS | Encounter Summary ---
Author Organization [employer] Address 75 [facility] 7 [place] [address] Care Team Providers Care Master Fisher Name Role Phone Heena Abbasi MD Primary Care Provider [phone] Lauren Amaral MD Primary Care Provider [phone] Reason for Referral * Imaging (Urgent) - Closed Specialty Diagnoses / Procedures Referred By Contac t Referred To Contact Radiology Diagnoses Right flank pain Right lower quadrant pain Procedures CT Abdomen Pelvis w/ Contrast Hodan Hanna MD [address] [place] [address] Phone: tel: fax: [address] [address] Phone: tel: fax: Referral ID Status Reason Start Date Expiration Date Visits Re quested Visits Authorized [id number] Closed 06/27/2025 06/27/2026 1 1 Encounter Details Date Type Department Care Team (Late st Contact Info) Description 06/27/2025 Orders Only [facility] MED & PEDS [address] [place], [place] [phone] Hodan Hanna MD 505 [place], [place] [phone] Right flank pain (Primary Dx); Right lower [...] Upcoming Encounters Date Type Department Care Team ([facility] st Contact Info) Description 09/10/2025 9:00 AM EST Office Visit [facility] CHC MED & PEDS [address] [place] [address] Lauren Amaral MD 505 [place] [address] documented as of this encounter Procedures Procedure [...] AM EDT Narrative 07/16/2025 10:05 AM EDT [place] [address] [address] Scan Report Signed Patient: Omaira Holly MR#: [id number] : 1965 Acct:[id number] Age/Sex: 60 / F ADM Date: 07/16/25 Loc: HO.CT Attending Dr: Hodan Hanna MD Ordering Physician: Hodan Hanna MD Date of Service: 07/16/25 Procedure(s): CT abdomen pelvis w IV con Accession Number(s): [id number] cc: Hodan Hanna MD; Heena Abbasi MD Report Number: [id number]: Total DLP = 367.00 mGy-cm Reason for [...] 07/16/25 1002 DD/ 0934 TD/TT: 07/16/25 0947 Criminal Researcher: Procedure Note Donotuseinterpreter, Image - 07/16/[address] [place] [address] [address] Scan Report Signed Patient: Jose Holly#: [id number] : 1965Acct:[id number] Age/Sex: 60 / FADM Date: 07/16/25 Loc: HO.CT Attending Dr: Hodan Hanna MD Ordering Physician: Hodan Hanna MD Date of Service: 07/16/25 Procedure(s): CT abdomen pelvis w IV con Accession Number(s): [id number] cc: Hodan Hanna MD; Heena Abbasi MD Report Number: [id number]: Total DLP = 367.00 mGy-cm Reason for [...] OV> 07/16/25 1002 DD/ 0934 TD/TT: 07/16/2547 Criminal Researcher: us Hodan Hanna MD IMG CT PROCEDURES Edited Re sult - Final documented in this encounter Visit Diagnoses Diagnosis Right flank pain- Primary Abdominal pain, unspecified site Right lower quadrant pain documented in this encounter Additional Health Concerns Assessment Noted Time PHQ-9 Depression Total Score: 7 05/23/20 10:19 AM EDT documented as of this encounter Care Teams Master Fisher Relationship Specialty Start Date End Date Heena Abbasi MD [address] [place] [address] PCP - General Family Medicine 09/05/12 07/18/25 Lauren Amaral MD [address] [place] [address] PCP - General Family Medicine 07/19/25 Eli Higuera Paper SealerHvac Technician 03/17/24 08/05/25 Eli Higuera Paper SealerHvac Technician 10/05/24 08/05/25 Eli Higuera Paper SealerHvac Technician 02/22/25 Yarelypus Patient Self Pay Collector 08/06/25 documented as of this encounter
--- OUTSIDE RECORDS SUMMARY | 2025-09-05 12:02 | XMS_ITS | Encounter Summary ---
Author Organization [facility] Address 75 [facility] 7t [place] [address] Care Team Providers Care Toeing Stockings Name Role Phone Heena Abbasi MD Primary Care Provider [phone] Lauren Amaral MD Primary Care Provider [phone] Encounter Details Date Type Department Care Team (Latest Contact Info) Description 07/29/2022 Abstract [facility] CONVERSIONS Dental, Provider, DDS Social [...] Description 09/10/2025 9:00 AM EST Office Visit [facility] CHC MED & PEDS [address] [place] [address] Lauren Amaral MD 505 [place] [address] documented as of this encounter Visit Diagnoses Not on filedocumented in this encounter Care Teams Toeing Stockings Relationship Specialty Start Date End Date Heena Abbasi MD [address] [place] [address] PCP - General Family Medicine 09/05/12 07/18/25 Lauren Amaral MD [address] [place] [address] PCP - General Family Medicine 07/19/25 Eli Higuera Used Building Materials Yard WorkerBlack Top Paver Operator 03/17/24 08/05/25 Eli Higuera Used Building Materials Yard WorkerBlack Top Paver Operator 10/05/24 08/05/25 Eli Higuera Used Building Materials Yard WorkerBlack Top Paver Operator 02/22/25 Digna Patient Computer Systems Analyst 08/06/25 documented as of this encounter
--- OUTSIDE RECORDS SUMMARY | 2025-09-05 12:02 | XMS_ITS | Encounter Summary ---
Author Organization [employer] Address 75 [facility] 7t [place] [address] Care Team Providers Care Aerial Crop Duster Name Role Phone Heena Abbasi MD Primary Care Provider [phone] Lauren Amaral MD Primary Care Provider [phone] Reason for Referral * Consultation (Routine) - Closed Specialty Diagnoses / Procedures Referred By Contemmanuel t Referred To Contact Nephrology Diagnoses Chronic pyelonephritis Hodan Hanna MD [address] [place] [address] Phone: tel: fax: [facility] [address], [address] [place] [address] Phone: tel: fax: Referral ID Status Reason Start Date Expiration Date V isits Requested Visits Authorized [id number] Closed Specialty Services Required 07/22/2025 07/22/2026 1 1 Encounter Details Date Type Department Care Team (Late st Contact Info) Description 07/16/2025 Orders Only [facility] CHC MED & PEDS [address] [place], [place] [phone] Hodan Hanna MD [address] [place], [place] [phone] Chronic pyelonephritis (Primary Dx); Other constipation Social [...] Upcoming Encounters Date Type Department Care Team ([facility] st Contact Info) Description 09/10/2025 9:00 AM EST Office Visit [facility] CHC MED & PEDS [address] [place] [address] Lauren Amaral MD 505 [place] [address] Scheduled Referrals Name Type Priority Associated Diagnoses [...] EDT 07/18/2025 1:57 PM EDT Comment:UACC Narrative [facility] - 07/19/2025 11:08 AM EDT Urine Culture Report Result Urine Culture < 10,000 cfu/ml Specimen Source: Urine clean catch Hodan Hanna MD LAB MICROBIOLOGY - GENERAL ORDERABLES Final Result [facility] [address] [place] [address] [phone] documented in this encounter Visit Diagnoses Diagnosis Chronic pyelonephritis- Primary 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 Other constipation documented in this encounter Additional Health Concerns Assessment Noted Time PHQ-9 Depression Total Score: 7 05/23/20 25 10:19 AM EDT documented as of this encounter Care Teams Aerial Crop Duster Relationship Specialty Start Date End Date Heena Abbasi MD [address] [place] [address] PCP - General Family Medicine 09/05/12 07/18/25 Lauren Amaral MD [address] [place] [address] PCP - General Family Medicine 07/19/25 Eli Higuera LevermanDesign Printer Balloon 03/17/24 08/05/25 Eli Higuera LevermanDesign Printer Balloon 10/05/24 08/05/25 Eli Higuera LevermanDesign Printer Balloon 02/22/25 Digna Patient Geometry Teacher 08/06/25 documented as of this encounter
--- OUTSIDE RECORDS SUMMARY | 2025-09-05 12:02 | XMS_ITS | Encounter Summary ---
Author Organization [employer] Address [address] [facility] 7t [place] [address] Care Team Providers Care Banking Representative Name Role Phone Heena Abbasi MD Primary Care Provider [phone] Lauren Amaral MD Primary Care Provider [phone] Reason for Visit * Reason Onset Date Comments Referral 07/29/2023 Encounter Details Date Type Department Care Team ([facility] st Contact Info) Description 07/29/2023 Telephone [facility] MEDICINE [address] [place] [address] Heena Abbasi MD [address] [place], [place] [phone] Referral Social History Tobacco Use Types Packs/Day [...] Description 09/10/2025 9:00 AM EST Office Visit [facility] CHC MED & PEDS [address] [place] [address] Lauren Amaral MD [address] [place] [address] documented as of this encounter Visit Diagnoses Not on filedocumented in this encounter Care Teams Banking Representative Relationship Specialty Start Date End Date Heena Abbasi MD [address] [place] [address] PCP - General Family Medicine 09/05/12 07/18/25 Lauren Amaral MD [address] [place] [address] PCP - General Family Medicine 07/19/25 Eli Higuera Supervisor Long GoodsDesign Intern 03/17/24 08/05/25 Eli Higuera Supervisor Long GoodsDesign Intern 10/05/24 08/05/25 Eli Higuera Supervisor Long GoodsDesign Intern 02/22/25 Yarelyp Patient Rotary Engraver 08/06/25 documented as of this encounter
--- OUTSIDE RECORDS SUMMARY | 2025-09-05 12:02 | XMS_ITS | Encounter Summary ---
Author Organization [employer] Address [address] [facility] 7t [place] [address] Care Team Providers Care Thermostat Machine Tender Name Role Phone Heena Abbasi MD Primary Care Provider [phone] Lauren Amaral MD Primary Care Provider [phone] Reason for Visit * Reason Onset Date Comments Dr. Golden medical clearance ?? 11/23/2024 Encounter Details Date Type Department Care Team (Late st Contact Info) Description 11/23/2024 Telephone C [facility]ULT [facility] [address] [place] [address] Reynoso medical clearance [...] Upcoming Encounters Date Type Department Care Team ([facility] st Contact Info) Description 09/10/2025 9:00 AM EST Office Visit [facility] MED & PEDS [address] [place] [address] Lauren Amaral MD 505 [place] [address] documented as of this encounter Visit Diagnoses Not on filedocumented in this encounter Additional Health Concerns Assessment Noted Time PHQ-9 Depression Total Score: 5 12/31/19 24 10:57 AM EDT documented as of this encounter Care Teams Thermostat Machine Tender Relationship Specialty Start Date End Date Heena Abbasi MD [address] [place] [address] PCP - General Family Medicine 09/05/12 07/18/25 Lauren Amaral MD [address] [place] [address] PCP - General Family Medicine 07/19/25 Eli Higuera Assistant AuditorLead Section Supervisor 03/17/24 08/05/25 Eli Higuera Assistant AuditorLead Section Supervisor 10/05/24 08/05/25 Eli Higuera Assistant AuditorLead Section Supervisor 02/22/25 Digna Patient Manager Valuation 08/06/25 documented as of this encounter
--- OUTSIDE RECORDS SUMMARY | 2025-09-05 12:02 | XMS_ITS | Encounter Summary ---
Author Organization [employer] Address 75 [facility] 7t [place] [address] Care Team Providers Care Biotechnician Name Role Phone Lauren Amaral MD Primary Care Provider [phone] Encounter Details Date Type Department Care Team (Late st Contact Info) Description 09/05/2025 Orders Only GENERIC EXTERNAL DATA [...] the past 12 months, has t he [employer], gas, oil or water [email or web address] threatened to shut off services in your [...] Description 09/10/2025 9:00 AM EST Office Visit [facility] CHC MED & PEDS [address] [place] [address] Lauren Amaral MD [address] [place] [address] documented as of this encounter Procedures Procedure Name Priority Date/Time Associated Diagnosis Comments PROTHROMBIN TIME WHOLE BLD POC Routine 09/05/2025 10:06 AM EST ~PT, ~INR - ANTI COAG CLINIC Routine 09/05/2025 10:06 AM EST documented in this encounter Results * (ABNORMAL) PROTHROMBIN TIME WHOLE BLD POC (09/05/2025 10:06 AM EST) Protime 24.4(H) 11.1 - 13.5 sec [facility] 09/05/2025 10:0 6 AM EST 09/05/2025 10:24 AM EST us Generic External Data Provider LAB BLOOD ORDERAB LES Final Result [facility] [address] [place] [address] [phone] * (ABNORMAL) ~PT, ~INR - ANTI COAG CLINIC (09/05/2025 10:06 AM EST) Prothrombin Time INR 2.0(H) 0.9 - 1.1 [facility] Comment:METER #: [id number] TERNATIONAL NORMALIZED RATIO (INR) REFERENCE RANGES Reference [...] LES Final Result Performing Organization Address City/State/[facility] Co de Phone Number [facility] [address] [place] [address] [phone] documented in this encounter Visit Diagnoses Not on filedocumented in this encounter Additional Health Concerns Assessment Noted Time PHQ-9 Depression Total Score: 7 05/23/20 25 10:19 AM EDT documented as of this encounter Care Teams Biotechnician Relationship Specialty Start Date End Date Lauren Amaral MD [address] [place] [address] PCP - General Family Medicine 07/19/25 Eli Higuera Rn StaffingLaboratory Administrative Director 02/22/25 [employer] Patient Fitness Sales Associate 08/06/25 documented as of this encounter
--- OUTSIDE RECORDS SUMMARY | 2025-09-05 12:02 | XMS_ITS | Encounter Summary ---
Author Organization [employer] Address 75 [facility] 7t [place] [address] Care Team Providers Care Glassware Maker Name Role Phone Heena Abbasi MD Primary Care Provider [phone] Lauren Amaral MD Primary Care Provider [phone] Encounter Details Date Type Department Care Team ([facility] Contact Info) Description 09/10/2022 Orders Only [facility] [address] [place], [place] [phone] Tierra Ashby LPN Social History Tobacco Use [...] [facility] MED [facility] PED[facility] 505 [place], [place] [phone] Lauren Amaral MD [address] [place] [address] documented as of this encounter Visit Diagnoses Not on filedocumented in this encounter Care Teams Glassware Maker Relationship Specialty Start Date End Date Heena Abbasi MD [address] [place] [address] PCP - General Family Medicine 09/05/12 07/18/25 Lauren Amaral MD [address] [place] [address] PCP - General Family Medicine 07/19/25 Eli Higuera Learning Disabled TeacherSnowboard Instructor 03/17/24 08/05/25 Eli Higuera Learning Disabled TeacherSnowboard Instructor 10/05/24 08/05/25 Eli Higuera Learning Disabled TeacherSnowboard Instructor 02/22/25 Digna Patient Sock Knitting Machine Operator 08/06/25 documented as of this encounter
--- OUTSIDE RECORDS SUMMARY | 2025-09-05 12:02 | XMS_ITS | Encounter Summary ---
Author Organization [employer] [facility] Address 75 [facility] 7t [place] [address] Care Team Providers Care Patient Admitting Representative Name Role Phone Heena Abbsai MD Primary Care Provider [phone] Lauren Amaral MD Primary Care Provider [phone] Encounter Details Date Type Department Care Team (Latest Contact Info) Description 11/21/2018 Abstract [facility] CONVERSIONS Dental, Provider, DDS Social History Tobacco [...] Description 09/10/2025 9:00 AM EST Office Visit [facility] CHC MED & PEDS [address] [place] [address] Lauren Amaral MD [address] [place] [address] documented as of this encounter Visit Diagnoses Not on filedocumented in this encounter Care Teams Patient Admitting Representative Relationship Specialty Start Date End Date Heena Abbasi MD [address] [place] [address] PCP - General Family Medicine 09/05/12 07/18/25 Lauren Amaral MD [address] [place] [address] PCP - General Family Medicine 07/19/25 Eli Higuera Harp Action AssemblerRock Dust Sprayer 03/17/24 08/05/25 Eli Higuera Harp Action AssemblerRock Dust Sprayer 10/05/24 08/05/25 Eli Higuera Harp Action AssemblerRock Dust Sprayer 02/22/25 Digna Patient Glass Engraver 08/06/25 documented as of this encounter
--- OUTSIDE RECORDS SUMMARY | 2025-09-05 12:02 | XMS_ITS | Encounter Summary ---
Author Organization [employer] Address 75 [facility] 7t [place] [address] Care Team Providers Care Journeyman Machinist Name Role Phone Heena Abbasi MD Primary Care Provider [phone] Lauren Amaral MD Primary Care Provider [phone] Encounter Details Date Type Department Care Team (Late st Contact Info) Description 02/29/2024 Telephone C [facility] ADULT DENTAL [address] [place] [address] Perri Noble, SOREN Social History Tobacco Use [...] 09/10/2025 9:00 AM EST Office Visit [facility] MED & PEDS [address] [place] [address] Lauren Amaral MD 505 [place] [address] documented as of this encounter Visit Diagnoses Not on filedocumented in this encounter Additional Health Concerns Assessment Noted Time PHQ-9 Depression Total Score: 5 12/31/19 24 10:57 AM EDT documented as of this encounter Care Teams Journeyman Machinist Relationship Specialty Start Date End Date Heena Abbasi MD [address] [place] [address] PCP - General Family Medicine 09/05/12 07/18/25 Lauren Amaral MD [address] [place] [address] PCP - General Family Medicine 07/19/25 Eli Higuera Mail Distribution Scheme ExaminerMaterial Stress Tester 03/17/24 08/05/25 Eli Higuera Mail Distribution Scheme ExaminerMaterial Stress Tester 10/05/24 08/05/25 Eli Higuera Mail Distribution Scheme ExaminerMaterial Stress Tester 02/22/25 [employer] Patient Windows 7 Deployment Lead 08/06/25 documented as of this encounter
--- OUTSIDE RECORDS SUMMARY | 2025-09-05 12:03 | XMS_ITS | Encounter Summary ---
Author Organization [employer] Address 75 [facility] 7t [place] [address] Care Team Providers Care Physician Relations Representative Name Role Phone Heena Abbasi MD Primary Care Provider [phone] Lauren Amaral MD Primary Care Provider [phone] Encounter Details Date Type Department Care Team ([facility] Contact Info) Description 12/09/2022 Orders Only [facility] MED & PEDS [address] [place], [place] [phone] Heena Abbasi MD [address] [place], [place] [phone] Social History Tobacco Use Types Packs/Day Years [...] 9:00 AM EST Office Visit [facility] MED & PEDS [address] [place], [place] [phone] Lauren Amaral MD [address] [place], [place] [phone] documented as of this encounter Visit Diagnoses Not on filedocumented in this encounter Care Teams Physician Relations Representative Relationship Specialty Start Date End Date Heena Abbasi MD [address] [place] [address] PCP - General Family Medicine 09/05/12 07/18/25 Lauren Amaral MD [address] [place] [address] PCP - General Family Medicine 07/19/25 Eli Higuera Computer SpecialistRn Endoscopy 03/17/24 08/05/25 Eli Higuera Computer SpecialistRn Endoscopy 10/05/24 08/05/25 Eli Higuera Computer SpecialistRn Endoscopy 02/22/25 Digna Patient Store Product Demonstrator 08/06/25 documented as of this encounter
--- OUTSIDE RECORDS SUMMARY | 2025-09-05 12:03 | XMS_ITS | Encounter Summary ---
Author Organization [employer] Address 75 [facility] 7t [place] [address] Care Team Providers Care Suction Drum Drier Operator Name Role Phone Heena Abbasi MD Primary Care Provider [phone] Lauren Amaral MD Primary Care Provider [phone] Reason for Visit * Reason Onset Date Comments pre tx medication 02/16/2023 Encounter Details Date Type Department Care Team ([facility] Contact Info) Description 02/16/2023 Telephone [facility] ADULT DENTAL [address] [place] [address] Socorro Auguste DDS pre tx medication Social [...] Upcoming Encounters Date Type Department Care Team ([facility] Contact Info) Description 09/10/2025 9:00 AM EST Office Visit [facility] CHC MED & PEDS [address] [place] [address] Lauren Amaral MD [address] [place] [address] documented as of this encounter Visit Diagnoses Not on filedocumented in this encounter Care Teams Suction Drum Drier Operator Relationship Specialty Start Date End Date Heena Abbasi MD [address] [place] [address] PCP - General Family Medicine 09/05/12 07/18/25 Lauren Amaral MD [address] [place] [address] PCP - General Family Medicine 07/19/25 Eli Higuera County Records Management OfficerSenior Adults Director 03/17/24 08/05/25 Eli Higuera [place] Records Management OfficerSenior Adults Director 10/05/24 08/05/25 Eli Higuera [place] Records Management OfficerSenior Adults Director 02/22/25 [employer] Patient Explosive Operator Supervisor 08/06/25 documented as of this encounter
--- OUTSIDE RECORDS SUMMARY | 2025-09-05 12:03 | XMS_ITS | Encounter Summary ---
Author Organization [employer] Address 75 [facility] 7t [place] [address] Care Team Providers Care Supervisor Pairing And Inspecting Name Role Phone Heena Abbasi MD Primary Care Provider [phone] Lauren Amaral MD Primary Care Provider [phone] Reason for Visit * Reason Onset Date Comments Med Refill 12/30/2022 Encounter Details Date Type Department Care Team ([facility] st Contact Info) Description 12/30/2022 Telephone [facility] MEDICINE [address] [place] [address] Heena Abbasi MD [address] [place] [address] Med Refill Social History Tobacco Use Types [...] 12/30/2022 12:39 PM EDT Pt managed by [facility]. Noted INR of 3.0 on [...] 9:00 AM EST Office Visit [facility] MED & PEDS [address] [place] [address] Lauren Amaral MD [address] [place] [address] documented as of this encounter Visit Diagnoses Not on filedocumented in this encounter Care Teams Supervisor Pairing And Inspecting Relationship Specialty Start Date End Date Heena Abbasi MD [address] [place] [address] PCP - General Family Medicine 09/05/12 07/18/25 Lauren Amaral MD [address] [place] [address] PCP - General Family Medicine 07/19/25 Eli Higuera Gre TutorSales Operations Manager 03/17/24 08/05/25 Eli Higuera Gre TutorSales Operations Manager 10/05/24 08/05/25 Eli Higuera Gre TutorSales Operations Manager 02/22/25 [employer] Patient Farrowing Manager 08/06/25 documented as of this encounter
--- OUTSIDE RECORDS SUMMARY | 2025-09-05 12:03 | XMS_ITS | Encounter Summary ---
Author Organization [employer] Address 75 [facility] 7t [place] [address] Care Team Providers Care Rfid Developer Name Role Phone Heena Abbasi MD Primary Care Provider [phone] Lauren Amaral MD Primary Care Provider [phone] Reason for Visit * Reason Onset Date Comments Med Refill 06/09/2023 Encounter Details Date Type Department Care Team ([facility] st Contact Info) Description 06/09/[address] [facility] CHC MED & PEDS [address] [place], [place] [phone] Heena Abbasi MD [address] [place] [address] Med Refill Social History Tobacco Use Types [...] message pt has refills at pharmacy . Child And Family Counselor contacted pharmacy to confirm . [facility] had [facility] system [facility] that was corrected and patient will be picking up script later today . * Telephone Encounter - Mari Miller LPN - 06/09/2023 11:54 AM EDT 90 day supply was sent to [facility][id number] on 12/29/22 with 3 refills. * Telephone Encounter - Brianne Wade - 06/09/2023 11:27 AM EDT Tc from pt requesting medication refill on gemfibrozil (Lopid) 600 MG tablet to be sent to [facility]/pharmacy #[id number] - [place], [place] - [address] documented in this encounter Plan of Treatment Upcoming Encounters Date Type Department Care Team (Late st Contact Info) Description 09/10/2025 9:00 AM EST Office Visit [facility] MED & PEDS [address] [place] [address] Lauren Amaral MD [address] [place] [address] documented as of this encounter Visit Diagnoses Not on filedocumented in this encounter Care Teams Rfid Developer Relationship Specialty Start Date End Date Heena Abbasi MD [address] [place] [address] PCP - General Family Medicine 09/05/12 07/18/25 Lauren Amaral MD [address] [place] [address] PCP - General Family Medicine 07/19/25 Eli Higuera Email MarketerTrust Mail Clerk 03/17/24 08/05/25 Eli Higuera Email MarketerTrust Mail Clerk 10/05/24 08/05/25 Eli Higuera Email MarketerTrust Mail Clerk 02/22/25 [employer] Patient Insulator Helper 08/06/25 documented as of this encounter
--- OUTSIDE RECORDS SUMMARY | 2025-09-05 12:03 | XMS_ITS | Encounter Summary ---
Author Organization [employer] Address [address] [facility] 7t [place] [address] Care Team Providers Care Drop Clipper Name Role Phone Heena Abbasi MD Primary Care Provider [phone] Lauren Amaral MD Primary Care Provider Reason for Visit * Reason Onset Date Comments Referral 05/17/2023 Encounter Details Date Type Department Care Team ([facility] st Contact Info) Description 05/17/2023 Telephone [facility] CHC MED & PEDS [address] [place], [place] [phone] Heena Abbasi MD 505 [place] [address] Referral Social History Tobacco Use Types Packs/Day [...] 05/17/2023 10:31 AM EDT Tc from candie ([facility]) requesting referral for pt. Location: [address] Francisco J Santacruz [place] Date: n/a Time: n/a Specialty: ice bag assembler documented in this encounter Plan of Treatment Upcoming Encounters Date Type Department Care Team ([facility] st Contact Info) Description 09/10/2025 9:00 AM EST Office Visit [facility] CHC MED & PEDS [address] [place] [address] Lauren Amaral MD [address] [place] [address] documented as of this encounter Visit Diagnoses Not on filedocumented in this encounter Care Teams Drop Clipper Relationship Specialty Start Date End Date Heena Abbasi MD [address] [place] [address] PCP - General Family Medicine 09/05/12 07/18/25 Lauren Amaral MD [address] [place] [address] PCP - General Family Medicine 07/19/25 Eli Higuera Rivet ThrowerPolice Inspector 03/17/24 08/05/25 Eli Higuera Rivet ThrowerPolice Inspector 10/05/24 08/05/25 Eli Higuera Rivet ThrowerPolice Inspector 02/22/25 [employer] Patient Email Producer 08/06/25 documented as of this encounter
--- OUTSIDE RECORDS SUMMARY | 2025-09-05 12:03 | XMS_ITS | Encounter Summary ---
Author Organization [employer] Address [address] [facility] 7t [place] [address] Care Team Providers Care Hydrologist Name Role Phone Heena Abbasi MD Primary Care Provider [phone] Lauren Amaral MD Primary Care Provider [phone] Encounter Details Date Type Department Care Team ([facility] Contact Info) Description 04/05/2023 Orders Only [facility] CHC MED & PEDS [address] [place], [place] [phone] Heena Abbasi MD [address] [place], [place] [phone] Social History Tobacco Use Types Packs/Day Years [...] Description 09/10/2025 9:00 AM EST Office Visit [facility] CHC MED & PEDS [address] [place], [place] [phone] Lauren Amaral MD [address] [place], [place] [phone] documented as of this encounter Visit Diagnoses Not on filedocumented in this encounter Care Teams Hydrologist Relationship Specialty Start Date End Date Heena Abbasi MD [address] [place] [address] PCP - General Family Medicine 09/05/12 07/18/25 Lauren Amaral MD [address] [place] [address] PCP - General Family Medicine 07/19/25 Eli Higuera Bus Person DishwasherProducer 03/17/24 08/05/25 Eli Higuera Bus Person DishwasherProducer 10/05/24 08/05/25 Eli Higuera Bus Person DishwasherProducer 02/22/25 [employer] Patient Paint Technician 08/06/25 documented as of this encounter
--- OUTSIDE RECORDS SUMMARY | 2025-09-05 12:03 | XMS_ITS | Encounter Summary ---
Author Organization [employer] Address [address] [facility] 7t [place] [address] Care Team Providers Care Mails Supervisor Name Role Phone Heena Abbasi MD Primary Care Provider [phone] Lauren Amaral MD Primary Care Provider [phone] Encounter Details Date Type Department Care Team ([facility] st Contact Info) Description 12/31/2023 Orders Only [facility] CHC MED & PEDS [address] [place], [place] [phone] Heena Abbasi MD [address] [place], [place] [phone] Social History Tobacco Use Types Packs/Day Years [...] 9:00 AM EST Office Visit [facility] CHC MED & PEDS [address] [place] [address] Lauren Amaral MD [address] [place] [address] documented as of this encounter Visit Diagnoses Not on filedocumented in this encounter Additional Health Concerns Assessment Noted Time PHQ-9 Depression Total Score: 5 12/31/19 24 10:57 AM EDT documented as of this encounter Care Teams Mails Supervisor Relationship Specialty Start Date End Date Heena Abbasi MD [address] [place] [address] PCP - General Family Medicine 09/05/12 07/18/25 Lauren Amaral MD [address] [place] [address] PCP - General Family Medicine 07/19/25 Eli Higuera Brickmason SupervisorMotion Picture Narrator 03/17/24 08/05/25 Eli Higuera Brickmason SupervisorMotion Picture Narrator 10/05/24 08/05/25 Eli Higuera Brickmason SupervisorMotion Picture Narrator 02/22/25 [employer] Patient Roll Icer Machine 08/06/25 documented as of this encounter
--- OUTSIDE RECORDS SUMMARY | 2025-09-05 12:03 | XMS_ITS | Encounter Summary ---
Author Organization [employer] Address [address] [facility] 7t [place] [address] Care Team Providers Care Silver Chaser Name Role Phone Heena Abbasi MD Primary Care Provider [phone] Lauren Amaral MD Primary Care Provider [phone] Encounter Details Date Type Department Care Team (Late Contact Info) Description 03/05/2023 Telephone [facility] CHC ADULT DENTAL [address] [place], [place] [phone] Anthony Arnold [address] [place], [place] [phone] Social History Tobacco Use Types Packs/Day Years [...] AM EDT Patient called in with her DRYWALL STRIPPER HELPER from her coumadin clinic to report [facility]. [facility] that number was too high and patient will not be able to be seen. Informed patient to call next week to check schedule for new appt date that will coincide with a new coumadin INR apptdate as well. Patient understood DR documented in this encounter Plan of Treatment Upcoming Encounters Date Type Department Care Team ([facility] Contact Info) Description 09/10/2025 9:00 AM EST Office Visit [facility] CHC MED & PEDS [address] [place] [address] Lauren Amaral MD [address] [place] [address] documented as of this encounter Visit Diagnoses Not on filedocumented in this encounter Care Teams Silver Chaser Relationship Specialty Start Date End Date Heena Abbasi MD [address] [place] [address] PCP - General Family Medicine 09/05/12 07/18/25 Lauren Amaral MD 505 [place] [address] PCP - General Family Medicine 07/19/25 Eli Higuera Flatbed Press OperatorCatalog Librarian 03/17/24 08/05/25 Eli Higuera Flatbed Press OperatorCatalog Librarian 10/05/24 08/05/25 Eli Higuera Flatbed Press OperatorCatalog Librarian 02/22/25 [employer] Patient Test Desk Operator 08/06/25 documented as of this encounter
--- OUTSIDE RECORDS SUMMARY | 2025-09-05 12:03 | XMS_ITS | Encounter Summary ---
Author Organization [employer] [facility] Address [address] [facility] 7t [place] [address] Care Team Providers Care Contact Center Engineer Name Role Phone Heena Abbasi MD Primary Care Provider [phone] Lauren Amaral MD Primary Care Provider [phone] Encounter Details Date Type Department Care Team (Late Contact Info) Description 01/01/2023 Orders Only [facility] MED & PEDS [address] [place], [place] [phone] Heena Abbasi MD [address] [place], [place] [phone] Muscle spasm Social History Tobacco Use Types [...] Description 09/10/2025 9:00 AM EST Office Visit [facility] MED & PEDS [address] [place], [place] [phone] Lauren Amaral MD [address] [place], [place] [phone] documented as of this encounter Visit Diagnoses Diagnosis Muscle spasm Spasm of muscle documented in this encounter Care Teams Contact Center Engineer Relationship Specialty Start Date End Date Heena Abbasi MD [address] [place] [address] PCP - General Family Medicine 09/05/12 07/18/25 Lauren Amaral MD [address] [place] [address] PCP - General Family Medicine 07/19/25 Eli Higuera Hand Flatwork FinisherCoffee Sommelier 03/17/24 08/05/25 Eli Higuera Hand Flatwork FinisherCoffee Sommelier 10/05/24 08/05/25 Eli Higuera Hand Flatwork FinisherCoffee Sommelier 02/22/25 [employer] Patient Interventional Technologist 08/06/25 documented as of this encounter
--- OUTSIDE RECORDS SUMMARY | 2025-09-05 12:03 | XMS_ITS | Encounter Summary ---
Author Organization [employer] Address [address] [facility] 7t [place] [address] Care Team Providers Care Optical Fabricator Name Role Phone Heena Abbasi MD Primary Care Provider [phone] Lauren Amaral MD Primary Care Provider [phone] Reason for Visit * Reason Onset Date Comments Med Refill 03/30/2023 Encounter Details Date Type Department Care Team ([facility] st Contact Info) Description 03/30/2023 Telephone [facility] CHC MED & PEDS [address] [place], [place] [phone] Heena Abbasi MD [address] [place] [address] Med Refill Social History Tobacco Use Types [...] - 03/31/2023 8:41 AM EDT Managed by [facility] cou[facility]. Noted INR result of 3.0 [...] [facility] st Contact Info) Description 09/10/2025 9:00 AM EST Office Visit [facility] MED & PEDS [address] [place] [address] Lauren Amaral MD [address] [place] [address] documented as of this encounter Visit Diagnoses Not on filedocumented in this encounter Care Teams Optical Fabricator Relationship Specialty Start Date End Date Heena Abbasi MD [address] [place] [address] PCP - General Family Medicine 09/05/12 07/18/25 Lauren Amaral MD [address] [place] [address] PCP - General Family Medicine 07/19/25 Eli Higuera Upper MarkerControl Clerk Repairs 03/17/24 08/05/25 Eli Higuera Upper MarkerControl Clerk Repairs 10/05/24 08/05/25 Eli Higuera Upper MarkerControl Clerk Repairs 02/22/25 [employer] Patient Microfilm Camera Operator 08/06/25 documented as of this encounter
--- OUTSIDE RECORDS SUMMARY | 2025-09-05 12:03 | XMS_ITS | Encounter Summary ---
Author Organization [employer] Address [address] [facility] 7t [place] [address] Care Team Providers Care [facility] Shift Lead Name Role Phone Heena Abbasi MD Primary Care Provider [phone] Lauren Amaral MD Primary Care Provider [phone] Reason for Visit * Reason Onset Date Comments Med Refill 01/31/2025 Encounter Details Date Type Department Care Team ([facility] Contact Info) Description 01/31/2025 Telephone [facility] MEDICINE [address] [place] [address] Heena Abbasi MD [address] [place], [place] [phone] Med Refill Social History Tobacco Use Types [...] sent to: [facility]/pharmacy #[id number] - [place], [place] - [address] documented in this encounter Plan of Treatment Upcoming Encounters Date Type Department Care Team (Late st Contact Info) Description 09/10/2025 9:00 AM EST Office Visit [facility] CHC MED & PEDS [address] [place] [address] Lauren Amaral MD [address] [place] [address] documented as of this encounter Visit Diagnoses Not on filedocumented in this encounter Additional Health Concerns Assessment Noted Time PHQ-9 Depression Total Score: 5 12/31/19 24 10:57 AM EDT documented as of this encounter Care Teams [facility] Shift Lead Relationship Specialty Start Date End Date Heena Abbasi MD [address] [place] [address] PCP - General Family Medicine 09/05/12 07/18/25 Lauren Amaral MD [address] [place] [address] PCP - General Family Medicine 07/19/25 Eli Higuera Physical Therapy Aides TeacherMultiple Resaw Operator 03/17/24 08/05/25 Eli Higuera Physical Therapy Aides TeacherMultiple Resaw Operator 10/05/24 08/05/25 Eli Higuera Physical Therapy Aides TeacherMultiple Resaw Operator 02/22/25 [employer] Patient Medical Attendant 08/06/25 documented as of this encounter
== END 2025-09-05 10:16 | disposition home or self-care (01) ==
LOC: HO.ACS 09:58
PROVIDERS: PCP Family Medicine; Visit Provider Internal Medicine Medical Oncology
DX: Z79.01 Long term (current) use of anticoagulants (principal)

== ENCOUNTER → 2025-09-05 09:58 | Outpatient (BNVA) | payer MEDICAID, SELFPAY | PROVIDERS: PCP Family Medicine; Visit Provider Internal Medicine Medical Oncology | DX: I26.99 Other pulmonary embolism without acute cor pulmonale (principal); Z79.01 Long term (current) use of anticoagulants; Z51.81 Encounter for therapeutic drug level monitoring | CPT/HCPCS: 85610; 99211 ==

== ENCOUNTER 2025-09-05 10:59 | Outpatient (REF) | payer MEDICAID, SELFPAY ==
[2025-09-05 15:33] LABS: MANUAL DIFF FLAG NO
[2025-09-05 15:35] LABS: Hematocrit 39.0 % (37.0-47.0); Hemoglobin 11.8 g/dl (12.0-16.0); Imm Gran Abs Auto 0.03 X10*3/uL (0.00-0.03); Imm Gran Pct Auto 0.4 % (0.0-0.4); Lymphocytes Absolute Auto 2.1 X10*3/uL (1.2-4.9); Mean Corpuscular HGB Conc 30.3 g/dl (31.0-35.0); Mean Corpuscular Hemoglobin 23.5 pg (27.0-33.0); Mean Corpuscular Volume 77.7 fL (80.0-98.0); NRBC Abs Auto 0.000 X10*3/uL (0.0-0.012); NRBC Pct Auto 0.0 /100WBC (0.0-0.2); Platelet Count 546 X10*3/uL (160-400); Red Blood Count 5.02 X10*6/uL (4.20-5.50); White Blood Count 7.8 X10*3/uL (4.8-10.8)
[2025-09-05 16:06] LABS: Iron 32 mcg/dL (30-160); Percent Iron Saturation 8 % (15-50); Total Iron Binding Capacity 379 mcg/dL (228-428); Unsaturated Iron Binding 347 ug/dL
[2025-09-05 16:12] LABS: Ferritin 14 ng/mL (10-250)
[2025-09-06 04:09] LABS: HIV Num 1 0.13 S/CO (0.00-0.99); ~HepC Num1 0.18 S/CO (0.00-0.79); ~Hepatitis C Antibody Nonreactive (Nonreactive)
== END 2025-09-05 11:00 | disposition home or self-care (01) ==
LOC: HO.CHCLDS 10:59
PROVIDERS: Visit Provider Family Medicine
DX: Z11.59 Encounter for screening for other viral diseases (principal); Z11.4 Encounter for screening for human immunodeficiency virus [HIV]; Z13.89 Encounter for screening for other disorder; D64.9 Anemia, unspecified
CPT/HCPCS: 36415; 82728; 83540; 85025; 86803; 87389